=== PATIENT | female | born 1945 | race Caucasian/White ===

== ENCOUNTER 2023-01-04 14:38 | Outpatient (OUT) | payer MEDICARE, SELFPAY ==
[2023-01-04 15:10] LABS: Basophils Absolute Auto 0.1 10^3/uL (0.0-0.1); Basophils Percent Auto 0.5 % (0.2-2.0); Eosinophils Absolute Auto 0.2 10^3/uL (0.0-0.7); Eosinophils Percent Auto 1.9 % (0.9-7.0); Hematocrit 33.8 % (36.0-48.0); Hemoglobin 11.3 g/dL (12.0-16.0); Immature Granulocytes Abs Auto 0.04 10^3/uL (0.00-0.03); Immature Granulocytes Pct Auto 0.4 % (0.0-0.5); Lymphocytes Absolute Auto 2.7 10^3/uL (1.2-3.8); Lymphocytes Percent Auto 26.7 % (20.5-60.0); Mean Corpuscular HGB Conc 33.4 g/dL (29.9-35.2); Mean Corpuscular Hemoglobin 29.3 pg (26.7-34.0); Mean Corpuscular Volume 87.6 fL (81.0-99.0); Mean Platelet Volume 10.9 fL (9.5-13.5); Monocytes Absolute Auto 0.8 10^3/uL (0.3-0.8); Monocytes Percent Auto 7.4 % (1.7-12.0); Neutrophils Absolute Auto 6.4 10^3/uL (1.4-6.5); Neutrophils Percent Auto 63.1 % (43.0-75.0); Platelet Count 248 10^3/uL (150-450); Red Blood Count 3.86 10^6/uL (4.20-5.40); Red Cell Distribution Width 13.3 % (11.0-15.0); White Blood Count 10.1 10^3/uL (4.0-11.0)
--- NOTE | 2023-01-04 15:56 | CA_ITS ---
The [facility] Test Date: 2023-01-04 Pat Name: Maame Medina Department: Room: - Gender: Female Financial Reporting Manager: Rachel Silva : 1945 Requested By: SOLEDAD MCNEIL Order Number: [id number] Reading MD: SOLEDAD MCNEIL Interpretive Statements Biphasic doppler waveforms PVR waveforms with normal upstroke, amplitude and dicrotic notch Right: - significant pressure gradient between the calf and DP cuff - normal TRUMAN and TBI Left: - no pressure gradient between cuff - normal TRUMAN and TBI Impression: - elevated B/L calf indices consistent with calcified, noncompressible arterial larsen, which may underestimate the degree of arterial disease pressent - normal arterial evaluation of the lower extremities without hemodynamic impairment of the B/L lower extremity at rest. (right TRUMAN 1.16, left TRUMAN 1.27) Electronically Signed On 01-05-2023 6:53:57 EDT by SOLEDAD MCNEIL
[2023-01-04 16:09] LABS: Alanine Aminotransferase 25 U/L (14-59); Anion Gap 12.3; Calcium 10.5 mg/dL (8.5-10.1); Carbon Dioxide 29.1 mmol/L (21.0-32.0); Chloride 101 mmol/L (98-107); Chol HDL Ratio 2.2; Cholesterol 114 mg/dL (<=200); Estimated GFR (African America 36 (>=60); Estimated GFR (Non-African Ame 30 (>=60); Glucose 130 mg/dL (74-106); HDL Cholesterol 51 mg/dL (40-60); LDL Cholesterol Calculated 34.2 mg/dL; Potassium 4.4 mmol/L (3.5-5.1); Sodium 138 mmol/L (136-145); Triglycerides 144 mg/dL (<=150); VLDL CHOLESTEROL 28.8 mg/dL
[2023-01-04 16:40] LABS: Estimated Average Glucose 174 mg/dL; Glycohemoglobin A1C 7.7 % (4.5-6.2)
[2023-01-04 16:48] LABS: Microalbumin Urine Random 2.4 mg/dL (<=30.0)
[2023-01-05 14:12] LABS: PTH, Intact 38 pg/mL (15-65)
== END 2023-01-04 14:39 | disposition home or self-care (01) ==
LOC: CARD 14:38
PROVIDERS: PCP Internal Medicine; Visit Provider Internal Medicine
DX: I70.212 Atherosclerosis of native arteries of extremities with intermittent claudication, left leg (principal); E11.65 Type 2 diabetes mellitus with hyperglycemia; E78.01 Familial hypercholesterolemia; E83.52 Hypercalcemia; Z79.899 Other long term (current) drug therapy; E55.9 Vitamin D deficiency, unspecified
CPT/HCPCS: 36415; 80048; 80061; 82043; 82306; 83036; 83970; 84460; 85025; 93923

== ENCOUNTER 2023-07-25 18:28 | Emergency (ER) | payer MEDICARE, SELFPAY ==
[2023-07-25] VITALS (10 sets, daily range): BP systolic 125–168; BP diastolic 54–67; PULSE 54–63; RESP 13–30; TEMP 36.9; O2SAT 95–99; BMI 26.8
--- NOTE | 2023-07-25 18:42 | XR_ITS ---
The [address] [address] Patient Name: DINO VELASCO MRN: [id number] date: 1945 Sex: F Assigned Patient Location: ER Current Patient Location: ER Accession/Order Number: [id number] Exam Date: 07/25/2023 18:50 Report Date: 07/25/2023 19:42 At the request of: BRICE BUTLER Procedure: XR chest 1V ONE-VIEW CHEST RADIOGRAPH, 07/25/2023 6:50 PM EST COMPARISON: Chest, 08/08/2021. CLINICAL HISTORY: Chest pain. Findings and impression: 1. Left upper lobe/suprahilar mass measuring 3.2 cm is new since the prior exam. Further correlation with CT scan of the chest with IV contrast recommended. Lungs otherwise clear. 2. Mild cardiomegaly. 3. No acute osseous abnormality. Electronically authenticated by: Bruna MORIN Date: 07/25/2023 19:42
--- NOTE | 2023-07-25 18:42 | ECG_ITS ---
The [facility] Test Date: 2023-07-25 Pat Name: DINO VELASCO Department: Room: - Gender: Female [facility]: : 1945 Requested By: Ramin Mcneil Order Number: [id number] Reading MD: RAMIN MCNEIL Measurements Intervals [place] Rate: 57 P: 69 MD: 178 QRS: 58 QRSD: 76 T: 76 QT: 404 QTc: 397 Interpretive Statements 1100 Sinus rhythm 9110 normal ECG Compared to ECG 08/16/2021 22:51:05 No significant changes Electronically Signed On 07-27-2023 6:46:25 EST by RAMIN MCNEIL
--- NOTE | 2023-07-25 18:45 | ED_ITS ---
HPI - Chest Pain General Chief Complaint: Chest Pain Stated Complaint: Blood Pressure Time Seen by Provider: 07/25/23 18:42 Source: patient Mode of arrival: walk-in Limitations: no limitations History of Present Illness HPI narrative: Patient is a 77-year-old female with a history of high blood pressure, high cholesterol, diabetes. She presents to the ER for evaluation of burning in the chest throughout the day. She states earlier today she had an episode where she had discomfort across the chest that she describes as burning, she states it radiated to the bilateral arms. She has no fevers, chills, cough, congestion. She denies feeling short of breath. She states symptoms eased up but her daughter works for Dr. De Paz's office and checked in with her earlier and he recommended that if the symptoms return she go to the ER. At this time she has only minimal discomfort in the chest. She has no peripheral edema. No history of acid reflux. She takes aspirin and Plavix daily for history of TIA. Risk Factors Coronary artery disease risk factors: diabetes, hyperlipidemia and hypertension Related Data Home Medications Medication Instructions Recorded Confirmed amlodipine 5 mg tablet 5 mg PO DAILY 07/25/23 07/25/23 aspirin 81 mg tablet,delayed 81 mg PO DAILY 07/25/23 07/25/23 release (Adult Low Dose Aspirin) atorvastatin 10 mg tablet 10 mg PO DAILY 07/25/23 07/25/23 carvedilol 6.25 mg tablet 6.25 mg PO DAILY 07/25/23 07/25/23 clopidogrel 75 mg tablet 75 mg PO DAILY 07/25/23 07/25/23 famotidine 20 mg tablet 20 mg PO BID 07/25/23 07/25/23 furosemide 20 mg tablet 20 mg PO .every other day 07/25/23 07/25/23 glipizide 10 mg tablet 10 mg PO DAILY 07/25/23 07/25/23 losartan 50 mg tablet 50 mg PO BID 07/25/23 07/25/23 sitagliptin phosphate 50 1 tab PO BID 07/25/23 07/25/23 mg-metformin 1,000 mg tablet ([place]ra) Allergies Allergy/AdvReac Type Severity Reaction Status Date / Time Penicillins Allergy Severe Verified 07/25/23 18:42 Review of Systems ROS Constitutional Denies: fever or chills Ears, nose, mouth, and throat Denies: throat pain or nasal congestion Cardiovascular Reports: chest pain Respiratory Denies: shortness of breath or cough Gastrointestinal Denies: abdominal pain, nausea, vomiting or diarrhea Genitourinary Denies: painful urination Musculoskeletal Denies: back pain Integumentary/Breast Denies: rash Neurological Denies: headache Hematologic/Lymphatic Denies: easy bruising or easy bleeding [facility] Social History Smoking status: Former smoker Exam Narrative Exam Narrative: Gen.: Awake, alert, in no distress Head: Normocephalic, atraumatic ENT: Moist mucous membranes Respiratory: No respiratory distress, lungs clear bilaterally Cardio: Regular rate and rhythm Gastrointestinal: Abdomen is soft, nondistended and nontender to palpation Extremities: Moves extremities equally, no pedal edema Psych: Normal mood and affect Neuro: No focal neuro deficit Skin: Warm, dry, intact Constitutional Vital Signs, click to edit/add: Last Vital Signs Temp 98.5 F 07/25/23 18:35 Pulse 54 L 07/25/23 19:50 Resp 15 07/25/23 19:50 BP 127/56 07/25/23 19:30 Pulse Ox 97 07/25/23 19:50 Course Vital Signs Vital signs: Vital Signs Temperature 98.5 F 07/25/23 18:35 Pulse Rate 56 L 07/25/23 18:35 Respiratory Rate 20 07/25/23 18:35 Blood Pressure 168/54 H 07/25/23 18:35 Pulse Oximetry 99 07/25/23 18:35 Temperature 98.5 F 07/25/23 18:35 Pulse Rate 54 L 07/25/23 19:50 Respiratory Rate 15 07/25/23 19:50 Blood Pressure 127/56 07/25/23 19:30 Pulse Oximetry 97 07/25/23 19:50 MDM - Chest Pain MDM Narrative Medical decision making narrative: Patient with no significant discomfort in the ER, she maintained stable vital signs and normal EKG. She had a full cardiac workup with 2 normal troponins in the ER. Her chest x-ray showed a mass in the left upper lobe recommended CT with IV contrast by radiologist. CT shows a 3 cm mass in the left upper lobe concern for primary tumor. I discussed this with Dr. Centeno who will see the patient next week and coordinate Care with Dr. De Paz. She was encouraged to call Dr. De Paz's office for further instructions. Dr. Richardson Can see the patient next week for bronchoscopy, he recommended Plavix be held 5 to 7 days for the procedure. Patient was made aware of these findings. She was reevaluated by attending physician prior to discharge, she is eager for discharge home. Follow-up with PCP and return to the ER if symptoms change or worsen Medical Records Data Attestation: I reviewed the patient's medical records. Lab Data Attestation: I reviewed the patient's lab results. Labs: Lab Results 07/25/23 07/25/23 Range/Units 18:55 20:55 WBC 10.6 (4.0-11.0) 10^3/uL RBC 4.07 L (4.20-5.40) 10^6/uL Hgb 11.8 L (12.0-16.0) g/dL Hct 36.6 (36.0-48.0) % MCV 89.9 (81.0-99.0) fL MCH 29.0 (26.7-34.0) pg MCHC 32.2 (29.9-35.2) g/dL RDW 12.9 (11.0-15.0) % Plt Count 230 (150-450) 10^3/uL MPV 11.4 (9.5-13.5) fL Neut % (Auto) 61.3 (43.0-75.0) % Lymph % (Auto) 26.4 (20.5-60.0) % [place] % (Auto) 9.3 (1.7-12.0) % Eos % (Auto) 2.0 (0.9-7.0) % Baso % (Auto) 0.5 (0.2-2.0) % Neut # (Auto) 6.5 (1.4-6.5) 10^3/uL Lymph # (Auto) 2.8 (1.2-3.8) 10^3/uL [place] # (Auto) 1.0 H (0.3-0.8) 10^3/uL Eos # (Auto) 0.2 (0.0-0.7) 10^3/uL Baso # (Auto) 0.1 (0.0-0.1) 10^3/uL Abs Immat Gran (auto) 0.05 H (0.00-0.03) 10^3/uL Imm/Tot Granulo (auto) 0.5 (0.0-0.5) % PT 10.5 (9.0-11.6) sec INR 0.99 Sodium 137 (136-145) mmol/L Potassium 5.1 (3.5-5.1) mmol/L Chloride 101 (98-107) mmol/L Carbon Dioxide 25.5 (21.0-32.0) mmol/L Anion Gap 15.6 BUN 28.0 H (7.0-18.0) mg/dL Creatinine 1.27 H (0.55-1.02) mg/dL Est GFR ( Amer) 49 L (>=60) Est GFR (Non-Af Amer) 41 L (>=60) BUN/Creatinine Ratio 22.0 Glucose 139 H (74-106) mg/dL Calcium 10.8 H (8.5-10.1) mg/dL Total Bilirubin 0.4 (0.2-1.0) mg/dL AST 17 (15-37) U/L ALT 27 (14-59) U/L Alkaline Phosphatase 130 H (46-116) U/L Troponin I High Sens 7.6 10.2 (4.0-51.3) pg/mL NT-Pro-B Natriuret Pep 180.0 (<=1800.0) pg/mL Total Protein 7.6 (6.4-8.2) g/dL Albumin 3.8 (3.4-5.0) g/dL Globulin 3.8 g/dL Albumin/Globulin Ratio 1.[address] scan - chest: Radiologist's impression: ITS Impressions Chest CT 07/25/23 20:13 IMPRESSION: 1. Development of new large enhancing left lung mass, located within the os tear aspect of the upper superior segment left lower lobe abutting the major fissure measuring 2.6 cm AP by 2.67 m transverse by 2.9 cm craniocaudal. Query primary malignant lung cancer versus metastasis. Suspect primary tumor. This is new and has developed when compared with remote studies. Recommend tissue diagnosis and PET/CT. 2. Additional indeterminate left adrenal nodule as measured above. Given new lung mass, metastasis needs to be excluded. Correlate with PET/CT versus a dedicated MRI or CT adrenal workup. 3. Subtle hyperdense lesions within the hepatic dome. These may be further characterized with PET/CT and/or dynamic liver MRI; likewise there are some subcentimeter hypodensities in the spleen most likely benign but can be further characterized with these other imaging modalities. 4. Incidental calcified right lower lobe lung granuloma also in the superior segment. Electronically authenticated by: RADHA FERRIS Date: 07/25/2023 21:08 ECG Data Attestation: I personally reviewed and interpreted this ECG as follows: (Normal sinus rhythm at a rate of 57, no acute ST elevation or ectopy. EKG reviewed by attending physician) Heart Score History: Slightly/Non-Suspicious ECG: Normal Age: >65 years Risk Factors: >3 Risk Factors/ HX of CAD:2 Troponin: <Normal Limit Total Heart Score Recommendations & Risks:: 4 Discharge Plan Discharge Chief Complaint: Chest Pain Clinical Impression: Mass of left lung Patient Disposition: Home, Self-Care Time of Disposition Decision: 21:25 Condition: Good Prescriptions / Home Meds: No Action amlodipine 5 mg tablet 5 mg PO DAILY atorvastatin 10 mg tablet 10 mg PO DAILY carvedilol 6.25 mg tablet 6.25 mg PO DAILY clopidogrel 75 mg tablet 75 mg PO DAILY famotidine 20 mg tablet 20 mg PO BID furosemide 20 mg tablet 20 mg PO .every other day glipizide 10 mg tablet 10 mg PO DAILY losartan 50 mg tablet 50 mg PO BID Janumet 50-1,000 mg tablet 1 tab PO BID aspirin [Adult Low Dose Aspirin] 81 mg tablet,delayed release (DR/EC) 81 mg PO DAILY Instructions: Chest Pain (ED) Additional Instructions: Please follow up with Dr. De Paz in the next 1-2 days for reevaluation; Dr Richardson will see you in the office next week to discuss a biopsy, your Plavix needs to be held 5-7 days for him to do that procedure. Dr. Centeno is a high school coordinator/oncologist who can help with your diagnosis Stand Alone Forms: Portal Instructions Referrals: Juana Centeno MD [Physician] - 1 week Ramin De Paz DO [Primary Care Provider] - 1 week Ti Richardson DO [Physician] - 1 week
[2023-07-25 19:23] LABS: Basophils Absolute Auto 0.1 10^3/uL (0.0-0.1); Basophils Percent Auto 0.5 % (0.2-2.0); Eosinophils Absolute Auto 0.2 10^3/uL (0.0-0.7); Hematocrit 36.6 % (36.0-48.0); Hemoglobin 11.8 g/dL (12.0-16.0); Immature Granulocytes Abs Auto 0.05 10^3/uL (0.00-0.03); Immature Granulocytes Pct Auto 0.5 % (0.0-0.5); Lymphocytes Absolute Auto 2.8 10^3/uL (1.2-3.8); Lymphocytes Percent Auto 26.4 % (20.5-60.0); Mean Corpuscular HGB Conc 32.2 g/dL (29.9-35.2); Mean Corpuscular Volume 89.9 fL (81.0-99.0); Mean Platelet Volume 11.4 fL (9.5-13.5); Monocytes Percent Auto 9.3 % (1.7-12.0); Neutrophils Absolute Auto 6.5 10^3/uL (1.4-6.5); Neutrophils Percent Auto 61.3 % (43.0-75.0); Platelet Count 230 10^3/uL (150-450); Red Blood Count 4.07 10^6/uL (4.20-5.40); Red Cell Distribution Width 12.9 % (11.0-15.0); White Blood Count 10.6 10^3/uL (4.0-11.0)
[2023-07-25 19:42] LABS: INR 0.99; Prothrombin Time 10.5 sec (9.0-11.6)
[2023-07-25 19:53] LABS: Alanine Aminotransferase 27 U/L (14-59); Albumin Level 3.8 g/dL (3.4-5.0); Alkaline Phosphatase 130 U/L (46-116); Anion Gap 15.6; Aspartate Amino Transferase 17 U/L (15-37); Bilirubin Total 0.4 mg/dL (0.2-1.0); Calcium 10.8 mg/dL (8.5-10.1); Carbon Dioxide 25.5 mmol/L (21.0-32.0); Chloride 101 mmol/L (98-107); Estimated GFR (African America 49 (>=60); Estimated GFR (Non-African Ame 41 (>=60); Globulin 3.8 g/dL; Glucose 139 mg/dL (74-106); Potassium 5.1 mmol/L (3.5-5.1); Sodium 137 mmol/L (136-145); Total Protein 7.6 g/dL (6.4-8.2); Troponin I High Sensitivity 7.6 pg/mL (4.0-51.3)
--- NOTE | 2023-07-25 20:13 | CT_ITS ---
The [address] [address] Patient Name: DINO VELASCO MRN: [id number] date: 1945 Sex: F Assigned Patient Location: ER Current Patient Location: Accession/Order Number: [id number] Exam Date: 07/25/2023 20:27 Report Date: 07/25/2023 21:08 At the request of: BRICE BUTLER Procedure: CT chest w con CT OF THE CHEST WITH CONTRAST: 07/25/2023 8:27 PM EST HISTORY: Abnormal chest x-ray. Same-day chest x-ray demonstrated left upper lobe mass. TECHNIQUE: Contiguous axially collimated images were obtained from the lung apices through the lung bases, covering the adrenal glands, following the uneventful intravenous administration of 100 cc of Optiray 300. This CT exam was performed using one or more of the following dose reduction techniques: Automated exposure control, adjustment of the mA and/or kV according to patient size, or use of iterative reconstruction technique. Thin section coronal and sagittal images were reconstructed from the axial data set. All images were reviewed and interpreted. COMPARISON: Chest x-ray 07/25/2023; chest x-ray 08/16/2021; CT chest with contrast 08/24/2018 FINDINGS: Mediastinum: The mediastinum is unremarkable, without mass, hematoma, or lymph telma enlargement. Vascular Structures: The vascular structures are intact and unremarkable. There is mild atherosclerotic calcification of the normal caliber aorta. No dissection. Normal enhancement of the pulmonary arteries. No evidence of PE. Heart and Pericardium: The heart is normal in size and configuration. The pericardium is unremarkable, without mass or pericardial effusion. Pulmonary Parenchyma: There is a new large round low density parenchymal mass within the left upper lobe. This was not seen on previous remote imaging. There is a vessel seen extending to the lesion with some internal vascularity. Mean attenuation values of 42 Hounsfield units this measures approximately 2.6 cm AP and approximately 2.6 cm transverse. Craniocaudal mass extends 2.9 cm. This is located within the posterior superior margin of the superior segment left lower lobe and a portion abuts the undersurface of the major fissure. Also demonstrated is a benign uniformly calcified granuloma within the superior segment of the left lower lobe also measuring 5 mm x 5 mm. Remainder of the bilateral lung blake are clear. No additional mass or nodule. No acute consolidation. Pleura: Pleura is unremarkable, without mass or effusion. Osseous Structures: The osseous structures are grossly intact, without evidence of destructive osseous process. No blastic lesion or fracture. Body Wall: There is no body wall mass. There is no axillary lymph telma enlargement. Upper abdomen: There is uniform rather prominent hepatic steatosis. There are several subtle areas of clustered hyperdensities within the hepatic dome. A these are vessels or small enhancing lesions. Correlation with dynamic liver MRI recommended to further characterize given new left upper lobe lung mass. There are a few scattered calcified hepatic and splenic granulomas. There are also some multiple hypodense splenic lesions likely cysts. As can be assessed with MRI as well as they are too small to characterize on current study. Right adrenal gland is unremarkable. Low density left adrenal nodule measures 1.4 cm x 1.1 cm, too small to characterize. Attenuation values on this study of 67 Hounsfield units. Uncertain if this is metastatic, primary malignant or benign adenoma on this exam. Recommend correlation with MRI and/or dedicated adrenal CT imaging with and without with delayed washout versus PET/CT. Follow-up required. CT/CT chest w con IMPRESSION: 1. Development of new large enhancing left lung mass, located within the os tear aspect of the upper superior segment left lower lobe abutting the major fissure measuring 2.6 cm AP by 2.67 m transverse by 2.9 cm craniocaudal. Query primary malignant lung cancer versus metastasis. Suspect primary tumor. This is new and has developed when compared with remote studies. Recommend tissue diagnosis and PET/CT. 2. Additional indeterminate left adrenal nodule as measured above. Given new lung mass, metastasis needs to be excluded. Correlate with PET/CT versus a dedicated MRI or CT adrenal workup. 3. Subtle hyperdense lesions within the hepatic dome. These may be further characterized with PET/CT and/or dynamic liver MRI; likewise there are some subcentimeter hypodensities in the spleen most likely benign but can be further characterized with these other imaging modalities. 4. Incidental calcified right lower lobe lung granuloma also in the superior segment. Electronically authenticated by: RADHA FERRIS Date: 07/25/2023 21:08
[2023-07-25 21:17] LABS: Troponin I High Sensitivity 10.2 pg/mL (4.0-51.3)
== END 2023-07-25 22:04 | disposition home or self-care (01) ==
PROVIDERS: Physician Assistant; Emergency Provider Emergency Medicine; PCP Internal Medicine
DX: R91.8 Other nonspecific abnormal finding of lung field (principal); I10 Essential (primary) hypertension; E78.00 Pure hypercholesterolemia, unspecified; E11.9 Type 2 diabetes mellitus without complications; Z79.82 Long term (current) use of aspirin; Z79.02 Long term (current) use of antithrombotics/antiplatelets; Z79.899 Other long term (current) drug therapy; Z86.73 Personal history of transient ischemic attack (TIA), and cerebral infarction without residual deficits; Z87.891 Personal history of nicotine dependence
CPT/HCPCS: 36415; 71045; 71260; 80053; 83880; 84484; 85025; 85610; 93005; 99285; Q9967

== ENCOUNTER 2023-08-01 08:29 | Outpatient (OUT) | payer MEDICARE, SELFPAY ==
[2023-08-01 10:20] LABS: Erythrocyte Sedimentation Rate 34 mm/hr (<=30)
[2023-08-02 06:08] LABS: Rheumatoid Factor (RF) <10.0 IU/mL (<14.0)
[2023-08-02 13:12] LABS: ANA Direct Positive (Negative); Angiotensin-Converting Enzyme 59 U/L (14-82); Anti-CCP Ab, IgG/IgA 5 units (0-19); Anti-DNA (DS) Ab Qn 10 IU/mL (0-9); RNP Antibodies <0.2 AI (0.0-0.9); Sjogren's Anti-SS-A <0.2 AI (0.0-0.9); Sjogren's Anti-SS-B <0.2 AI (0.0-0.9)
[2023-08-05 15:08] LABS: Aspergillus flavus Negative (Neg:<1:1); Aspergillus fumigatus Negative (Neg:<1:1); Aspergillus niger Negative (Neg:<1:1); Blastomyces Abs, Qn, DID Negative (Neg:<1:1)
[2023-08-05 16:08] LABS: Histoplasma Gal'mannan Ag Ur Negative (<0.5 ng/mL)
== END 2023-08-01 08:30 | disposition home or self-care (01) ==
LOC: LAB 08:31
PROVIDERS: PCP Internal Medicine; Visit Provider Internal Medicine
DX: R91.8 Other nonspecific abnormal finding of lung field (principal)
CPT/HCPCS: 36415; 82164; 85652; 86038; 86200; 86225; 86235; 86431; 86606; 86612; 86698; 87385

== ENCOUNTER 2023-08-02 13:25 | Outpatient (OUT) | payer MEDICARE, SELFPAY ==
--- OUTSIDE RECORDS SUMMARY | 2023-08-02 13:44 | XMS_ITS | CCD ---
Author Name Unknown Address [address] [place] [address] Organization [facility] Care Team Providers Care Plasma Table Operator Name Role Phone GALLEGO, JOSH Admitting Unavailable JOSH GALLEGO Attending Unavailable NEFTALI DON Referring Unavailable RAMIN DE PAZ Primary Care Unavailable Ramin De Paz DO Primary Care Provider Estuardo Epps Unavailable DO Ramin De Paz Primary Care Provider MD Bela Allison Referring Provider [phone] MARY ALICE Gaming Attending Provider DR RAMIN DE PAZ Primary Care Unavailable MISC, DR RIVERA Consulting Unavailable MISC, DR RIVERA Attending Unavailable MISC, DR RIVERA Admitting Unavailable YUE, JOSE Pino Consulting Unavailable BALL, DR FAUSTIN Primary Care Unavailable ALLISON, DR BELA Bowman Consulting Unavailable ALLISON, DR BELA Bowman Attending Unavailable ALLISON, DR BELA Bowman Admitting Unavailable BALL, DR FAUSTIN Primary Care Unavailable BALIS, MORGAN Consulting Unavailable BALIS, MORGAN Attending Unavailable BALIS, MORGAN Admitting Unavailable BALL, DR FAUSTIN Admitting Unavailable BALL, DR FAUSTIN Attending Unavailable BALL, DR FAUSTIN Consulting Unavailable BALL, DR FAUSTIN Primary Care Unavailable BALL, DR FAUSTIN Primary Care Unavailable BALL, DR FAUSTIN Consulting Unavailable BALDEV, DR FAUSTIN Admitting Unavailable BALL, DR FAUSTIN Attending Unavailable BALL, DR FAUSTIN Primary Care Unavailable BALL, DR FAUSTIN Consulting Unavailable BALDEV, DR FAUSTIN Admitting Unavailable BALL, DR FAUSTIN Attending Unavailable BALL, DR FAUSTIN Primary Care Unavailable BALL, DR FAUSTIN Consulting Unavailable BALL, DR FAUSTIN Admitting Unavailable BALL, DR FAUSTIN Attending Unavailable WEST, DR ESTUARDO Subramanian Consulting Unavailable BALL, DR FAUSTIN Primary Care Unavailable BALL, DR FAUSTIN Consulting Unavailable BALL, DR FAUSTIN Attending Unavailable BALL, DR FAUSTIN Referring Unavailable BALL, DR FAUSTIN Admitting Unavailable BALL, DR FAUSTIN Primary Care Unavailable BALL, DR FAUSTIN Consulting Unavailable BALL, DR FAUSTIN Attending Unavailable BALL, DR FAUSTIN Admitting Unavailable BALDEV, DR FAUSTIN Primary Care Unavailable ARIAN, DR NEFTALI Payne Consulting Unavailable ARIAN, DR NEFTALI Payne Attending Unavailable ARIAN, DR NEFTALI Payne Admitting Unavailable AHGO, SENDY Consulting Unavailable BALDVE, DR FAUSTIN Primary Care Unavailable CRISTIAN, DR BELA Bowman Attending Unavailable LANA, DR JAIR Bowman Consulting Unavailagusto e CRISTIAN, DR BELA Bowman Admitting Unavailable CRISTIAN, DR BELA Bowman Consulting Unavailable KING, DR ESTUARDO Subramanian Consulting Unavailable SYLVIA, DR ROSE Consulting Unavailable DENIS, GEO Consulting Unavailable Baldev, DO Faustin Primary Care Provider [phone] Adamlorriicz II, DO Jose Pino Attending Provider [phone] MD Bela Allison Referring Provider [phone] DO Ramin De Paz Attending Provider DO Ramin De Paz Primary Care Provider Danyellicz II, DO Jose Pino Attending Provider [phone] MD Bela Allison Referring Provider [phone] Ramin De Paz Unavailable DO Ramin De Paz Primary Care Provider [phone] Danyellicz II, DO Jose Pino Attending Provider MD Bela Allison Referring Provider [phone] DO Ramin De Paz Primary Care Provider Adamlorriicz II, DO Jose Pino Attending Provider MD Bela Allison Referring Provider DO Ramin De Paz Attending Provider [phone] Ramin De Paz Attending Unavailable Ramin De Paz Admitting Unavailable Ramin De Paz Primary Care Unavailable Bela Allison Referring Unavailable Adamlorriicz II, Jose Pino Admitting Unavaila ble Danyellicz II, Jose Pino Attending Unavaila ble Ramin De Paz Primary Care Unavailable Allergies Allergy Classification Reported Allergen(s) Allergy Type Date of Onset Reaction(s) Facility (12 sources) Penicillin Drug Allergy 09-21-19 14 Unknown [facility] Repository (1 source) Penicillins Drug Allergy 05-04-20 21 Unknown [facility] (20 sources) Sulfamethoxazole / Trimethoprim Drug Allergy 05-04-20 21 Unknown [facility] (20 sources) Penicillin G Benzathine Drug allergy Unknown [employer] [facility] Other (10 sources) dulaglutide Drug Allergy TRULICITY Comment:Freete xt Needs Updated. [facility] Other (10 sources) Penicillin V Drug Allergy Unknown [facility] Other (2 sources) patient allergy list reviewed by nurse or physicia Propensity to adverse reactions 06-15-20 Comment:Done [employer] [facility] Other (1 source) Penicillins Drug allergy (disorder) 06-28-19 [facility] Repository Medications Current Medications Medication Drug Class(es) Dates Sig (Normalized) Sig (Original) amLODIPine 5 mg oral tablet (20 sources) Dihydropyridine Calcium Channel Jefe Start: 06-08-2021 take 5 mg by mouth once daily Amlodipine Active 5 MG PO Daily June 08, 2021 12:00am amLODIPine Benzoate (1 source) amLODIPine Benzoate Active Aspir-81 (19 sources) Aspir-81 Active aspirin 81 mg delayed release oral tablet (6 sources) Platelet Aggregation Inhibitor, Nonsteroidal Anti-inflammatory Drug Start: 06-08-2021 take 81 mg by mouth once daily Aspirin Active 81 MG PO Daily June 08, 2021 12:00am take 1 tablet by mouth once breanna y aspirin,buffd-calcium carb-mag (ASPIRIN, BUFFERED) 325 mg buffered tablet Take 1 tablet by mouth once daily. 0 Active Comment on above: Take 1 tablet by dick th once daily. atorvastatin 10 mg oral tablet (20 sources) HMG-CoA Reductase Inhibitor Start: take 10 mg by mouth once daily Atorvastatin Active 10 MG PO Daily June 08, 2021 12:00am Atorvastatin Arnulfo cium Active biotin 10 mg oral tablet (8 sources) take 1 tablet by mouth every twenty-four hours Biotin 10 MG 1 tablet Orally Once a day Active carvedilol 6.25 mg oral tablet (20 sources) alpha-Adrenergi c Jefe, beta-Adrenergic Jefe Start: 022 take 6.25 mg by mouth twice daily Carvedilol Active 6.25 MG PO Twice daily August 09, 2021 12:00am cholecalciferol 0.05 mg oral capsule (20 sources) Vitamin D Start: 023 take 2000 [IU] by mouth once daily Cholecalciferol (Vitamin D3) Active 2000 UNIT PO Daily July 14, 2022 12:00am Dialyvite Vitami n D3 Max 1.25 MG (28165 UT) 1 tablet Orally Active Dialyvite Vitami n D3 Max 1.25 MG (72068 UT) 1 tablet Orally Active cloNIDine hydrochloride 0.1 mg oral tablet (19 sources) Central alpha-2 Adrenergic Agonist take 1 tablet by mouth twice daily cloNIDine HCl 0.1 mg TAKE 1 TABLET BY MOUTH TWICE DAILY Active take 1 tablet by dick th every twenty-four hours cloNIDine HCl 0.1 MG 1 tablet Orally Once a day Active clopidogrel 75 mg oral tablet (20 sources) P2Y12 Platelet Inhibitor Start: 06-08-2021 take 75 mg by mouth once daily Clopidogrel Active 75 MG PO Daily June 08, 2021 12:00am clopidogrel bisu lfate (CLOPIDOGREL ORAL) Take by mouth once daily. 0 Active Comment on above: Take by mouth once d aily. famotidine 10 mg oral tablet (20 sources) Histamine-2 Receptor Antagonist Start: 06-08-2021 take 10 mg by mouth once daily Famotidine Active 10 MG PO Daily June 08, 2021 12:00am take 1 tablet by mouth twice narciso ly Famotidine 20 mg TAKE 1 TABLET BY MOUTH TWICE DAILY Active furosemide 20 mg oral tablet (20 sources) Loop Diuretic Start: 08-09-2021 take 20 mg by mouth every other day Furosemide Active 20 MG PO As Directed August 09, 2021 12:00am every other day Start: 08-09-2021 take 20 mg by mouth once daily Furosemide Active 20 MG PO Daily August 09, 2021 12:00am gabapentin 100 mg oral capsule (20 sources) Anti-epileptic Agent Start: 06-08-2021 take 100 mg by mouth twice daily Gabapentin Active 100 MG PO Twice daily June 08, 2021 12:00am Gabapentin Activ e glipiZIDE 10 mg oral tablet (20 sources) Sulfonylurea Start: 06-08-2021 take 10 mg by mouth twice daily Glipizide Active 10 MG PO Twice daily June 08, 2021 12:00am take 1 tablet by dick th once daily 30 minutes before breakfast glipiZIDE 10 MG 1 tablet 30 minutes before breakfast Orally Once a day Active glipiZIDE Active losartan potassium 100 mg oral tablet (20 sources) Angiotensin 2 Receptor Jefe Start: 06-08-2021 take 100 mg by mouth once daily Losartan Active 100 MG PO Daily June 08, 2021 12:00am take 1 tablet by mouth twice narciso ly Losartan Potassium 50 mg TAKE 1 TABLET BY MOUTH TWICE DAILY Active Losartan Potassi um Active metFORMIN hydrochloride 1000 mg / SITagliptin 50 mg oral tablet (20 sources) Biguanide, Dipeptidyl Peptidase 4 Inhibitor Start: 06-08-2021 take 1 tablet by mouth twice daily Sitagliptin Phos-Metformin ([place]) 50-1,000 mg tablet Active 1 TAB PO Twice daily June 08, 2021 12:00am Start: 06-08-2021 take 1 tablet by dick th once daily Sitagliptin Phos-Metformin ([place]) 50-1,000 mg tablet Active 1 TAB PO Daily June 08, 2021 12:00am Janumet Active Completed/Discontinued Medications Medication Drug Class(es) Dates Sig (Normalized) Sig (Original) B-12 - up to 1000 mcg (20 sources) Start: 06-14-2023 B-12 - up to 1000 mcg May, 1 mL Start: 05-05-2023 B-12 - up to 1 000 mcg Apr, 1 mL Start: 03-27-2023 B-12 - up to 1 000 mcg Mar, 1000 mcg Start: 02-10-2023 B-12 - up to 1 000 mcg Jan, 1000 mcg Start: 01-09-2023 B-12 - up to 1 000 mcg Dec, 1000 mcg Start: 11-23-2022 B-12 - up to 1 000 mcg Nov, 1000 mcg Start: 10-18-2022 B-12 - up to 1 000 mcg October, 1000 mcg Start: 08-12-2022 B-12 - up to 1 000 mcg Jul, 1000 mcg Start: 07-08-2022 B-12 - up to 1 000 mcg Jun, 1000 mcg polysaccharide iron complex 150 mg oral capsule (6 sources) Start: 06-08-2021 End: 07-14-2022 Polysaccharide Iron Complex (Iferex 150) 150 mg iron capsule Discontinued 150 MG PO As Directed June 08, 2021 12:00am July 14, 2022 9:56am Every other day iFerex 150 Activ e Problems Active Problems Problem Classification Problem Date Documented Date Episodic/Chronic Cardiac and circulatory congenital anomalies (20 sources) Arteriovenous malformation, site unspecified; Translations: [Patent foramen ovale] Chronic Chronic kidney disease (20 sources) Chronic kidney disease stage 4; Translations: [Chronic kidney disease, stage 4 (severe)] Chronic Deficiency and other anemia (4 sources) Iron deficiency anemia secondary to blood loss (chronic); Translations: [IRON DEFIC ANEMIA SEC BLD LOSS CHRN] Onset: 07-09-2021 Chronic Deficiency and other anemia (9 sources) Anemia due to chronic blood loss; Translations: [Iron deficiency anemia secondary to blood loss (chronic)] Chronic Deficiency and other anemia (1 source) Iron deficiency anemia secondary to blood loss (chronic); Translations: [Iron deficiency anemia secondary to blood loss (chronic)] Onset: 07-13-2023 Chronic Deficiency and other anemia (20 sources) Iron deficiency anemia; Translations: [Iron deficiency anemia, unspecified] Onset: 08-14-2018 Resolved: 06-21-2021 06-28-2021 Episodic Deficiency and other anemia (10 sources) Iron deficiency anemia, unspecified; Translations: [Iron deficiency anemia, unspecified] Onset: 06-17-2021 Resolved: 06-24-2021 Episodic Deficiency and other anemia (20 sources) Pernicious anemia; Translations: [Vitamin B12 deficiency anemia due to intrinsic factor deficiency] Episodic Deficiency and other anemia (9 sources) Vitamin B12 deficiency anemia due to intrinsic factor deficiency Episodic Deficiency and other anemia (4 sources) Anemia; Translations: [Anemia, unspecified] Onset: 08-16-2018 01-13-2023 Episodic Diabetes mellitus with complications (20 sources) Type 2 diabetes mellitus with hyperglycemia; Translations: [Type 2 diabetes mellitus with diabetic polyneuropathy] Onset: 09-19-2016 Chronic Diabetes mellitus without complication (3 sources) Type 2 diabetes mellitus without complications; Translations: [Type 2 diabetes mellitus without complication] Onset: 08-18-2021 Chronic Disorders of lipid metabolism (20 sources) Hyperlipidemia, unspecified; Translations: [Pure hypercholesterolemia] Onset: 05-24-2013 Chronic Esophageal disorders (9 sources) Gastro-esophageal reflux disease without esophagitis; Translations: [Gastro-esophageal reflux disease with esophagitis] Onset: 09-19-2016 Chronic Essential hypertension (20 sources) Essential (primary) hypertension; Translations: [Essential hypertension] Onset: [birth year]19-1959 Chronic Gastritis and duodenitis (9 sources) Chronic gastritis; Translations: [Unspecified chronic gastritis without bleeding] Onset: 06-08-2021 Chronic Gastritis and duodenitis (20 sources) Gastritis; Translations: [Gastritis, unspecified, without bleeding] Episodic Genitourinary symptoms and ill-defined conditions (9 sources) Pyuria; Translations: [Pyuria] Episodic Immunizations and screening for infectious disease (2 sources) Vaccination given; Translations: [Encounter for immunization] Episodic Late effects of cerebrovascular disease (2 sources) 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; Translations: [Hemiplegia and hemiparesis following cerebral infarction affecting right dominant side] Onset: 05-18-2017 Chronic Menopausal disorders (2 sources) Primary ovarian failure; Translations: [Other primary ovarian failure] Onset: 06-08-2015 Chronic Nutritional deficiencies (20 sources) Vitamin D deficiency, unspecified; Translations: [Vitamin D deficiency] Onset: 06-04-2022 Chronic Nutritional deficiencies (2 sources) Iron deficiency; Translations: [Iron deficiency] 01-13-2023 Episodic Osteoporosis (1 source) Age-related osteoporosis without current pathological fracture; Translations: [AGE-REL OSTEOPOR W/O CURR PATH FX] Onset: 03-17-2022 Chronic Other aftercare (2 sources) Other custodial (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; Translations: [OTH RETAIL MANAGER CURRENT DRUG THERAPY] Onset: 08-18-2021 Episodic Other and ill-defined cerebrovascular disease (20 sources) Cerebrovascular disease; Translations: [Cerebrovascular disease, unspecified] Chronic Other and ill-defined cerebrovascular disease (19 sources) Cerebral atherosclerosis; Translations: [Cerebral atherosclerosis] Chronic Other and ill-defined cerebrovascular disease (4 sources) Cerebral atherosclerosis Chronic Other diseases of veins and lymphatics (19 sources) Peripheral venous insufficiency; Translations: [Venous insufficiency (chronic) (peripheral)] Episodic Other diseases of veins and lymphatics (2 sources) Venous insufficiency (chronic) (peripheral) Episodic Other disorders of stomach and duodenum (2 sources) Angiodysplasia of stomach and duodenum without bleeding Onset: 06-24-2021 Resolved: 06-24-2021 Episodic Other disorders of stomach and duodenum (20 sources) Angiodysplasia of duodenum; Translations: [Angiodysplasia of stomach and duodenum without bleeding] Onset: 06-08-2021 Episodic Other injuries and conditions due to external causes (2 sources) History of fall; Translations: [History of falling] Episodic Other lower respiratory disease (19 sources) Nodule of lung; Translations: [Solitary pulmonary nodule] Episodic Other nervous system disorders (1 source) Aphasia; Translations: [APHASIA] Onset: 09-19-2016 Chronic Other nutritional; endocrine; and metabolic disorders (8 sources) Hypercalcemia; Translations: [Hypercalcemia] Onset: 05-31-2022 Chronic Other nutritional; endocrine; and metabolic disorders (20 sources) Hypercalcemia; Translations: [Hypercalcemia] 07-19-2022 Chronic Other nutritional; endocrine; and metabolic disorders (2 sources) Obesity; Translations: [Obesity, unspecified] Chronic Other nutritional; endocrine; and metabolic disorders (7 sources) Overweight; Translations: [Overweight] Episodic Paralysis (19 sources) Hemiplegia, unspecified affecting right dominant side; Translations: [Hemiparesis of right dominant side, unspecified hemiparesis etiology] Chronic Peripheral and visceral atherosclerosis (17 sources) Atherosclerosis of [place] arteries of extremities with intermittent claudication, left leg; Translations: [Atherosclerosis of [place] artery of left lower extremity with intermittent claudication] Chronic Residual codes; unclassified (20 sources) Asymptomatic menopausal state; Translations: [Menopause] Onset: 03-17-2022 Episodic Residual codes; unclassified (2 sources) Postmenopausal state; Translations: [Asymptomatic menopausal state] Episodic Spondylosis; intervertebral disc disorders; other back problems (20 sources) Lumbar spondylosis; Translations: [Spondylosis without myelopathy or radiculopathy, lumbar region] Onset: 12-01-2016 Chronic Spondylosis; intervertebral disc disorders; other back problems (2 sources) Low back pain; Translations: [Low back pain, unspecified] Episodic Substance-related disorders (19 sources) Tobacco user; Translations: [Nicotine dependence, cigarettes, in remission] Chronic Thyroid disorders (20 sources) Thyroid nodule; Translations: [Nontoxic single thyroid nodule] Chronic Transient cerebral ischemia (5 sources) Transient cerebral ischemic attack, unspecified; Translations: [Transient cerebral ischemia] Onset: 09-19-2016 Chronic Unclassified (3 sources) CONTACT W/AND (SUSP) EXPOS COVID-19; Translations: [CONTACT W/AND (SUSP) EXPOS COVID-19] Onset: 06-23-2021 Unclassified (2 sources) Long-term current use of drug therapy; Translations: [Long-term (current) use of other medications] Onset: 02-04-2019 Viral infection (11 sources) Postherpetic neuralgia; Translations: [Other postherpetic nervous system involvement] Onset: 06-26-2017 Episodic Viral infection (1 source) COVID-19; Translations: [COVID-19] Onset: 01-11-2022 Past or Other Problems Problem Classification Problem Date Documented Da te Episodic/Chronic Acute posthemorrhagic anemia (1 source) Acute posthemorrhagic anemia; Translations: [ACUTE POSTHEMORRHAGIC ANEMIA] Onset: 06-23-2021 Episodic Cardiac dysrhythmias (2 sources) Paroxysmal atrial fibrillation; Translations: [Paroxysmal atrial fibrillation] Resolved: 03-26-2020 Chronic Complications of surgical procedures or medical care (3 sources) Postprocedural hypothyroidism; Translations: [Postoperative hypothyroidism] Onset: 06-23-2021 Resolved: 07-26-2021 Chronic Esophageal disorders (17 sources) Esophageal disorders; Translations: [Gastroesophageal reflux disease with esophagitis without hemorrhage] Gastrointestinal hemorrhage (4 sources) Melena; Translations: [Gastrointestinal hemorrhage, unspecified] Onset: 06-12-2021 Episodic Malaise and fatigue (2 sources) Malaise and fatigue; Translations: [Other malaise and fatigue] Onset: 07-25-2016 Episodic Mycoses (2 sources) Onychomycosis due to dermatophyte ; Translations: [Dermatophytosis of nail] Onset: 10-20-2015 Episodic Nonspecific chest pain (2 sources) Chest pain; Translations: [Other chest pain] Resolved: 06-21-2021 Episodic Other aftercare (1 source) alf (current) use of aspirin; Translations: [MCC CURRENT USE OF ASPIRIN] Onset: 08-18-2021 Episodic Other aftercare (1 source) manager terminal (current) use of antithrombotics/antip latelets; Translations: [RETAIL MANAGER ANTITHROMBOT/ANTIPLAT LETS] Onset: 06-23-2021 Episodic Other circulatory disease (1 source) Personal history of transient ischemic attack (TIA), and cerebral infarction without residual deficits; Translations: [PERS HX TIA AND CI NO RESID DEFICIT] Onset: 08-18-2021 Episodic Other circulatory disease (2 sources) History of cerebrovascular accident without residual deficits; Translations: [Personal history of transient ischemic attack [TIA], and cerebral infarction without residual deficits] Onset: 12-01-2016 Episodic Other connective tissue disease (2 sources) Musculoskeletal symptom; Translations: [Other musculoskeletal symptoms referable to limbs] Onset: 10-07-2016 Episodic Other lower respiratory disease (2 sources) Dyspnea; Translations: [Other forms of dyspnea] Resolved: 06-21-2021 Episodic Other lower respiratory disease (2 sources) Solitary nodule of lung; Translations: [Solitary pulmonary nodule] Onset: 08-16-2018 Episodic Other non-traumatic joint disorders (2 sources) Pain in right hip joint; Translations: [Pain in right hip] Onset: 12-01-2016 Episodic Other nutritional; endocrine; and metabolic disorders (8 sources) Body mass index 25-29 - overweight; Translations: [Body mass index 26.0-26.9, adult] Onset: [birth year]19[birth year]1959 Episodic Other screening for suspected conditions (not mental disorders or infectious disease) (6 sources) Encounter for screening mammogram for malignant neoplasm of breast; Translations: [Mammography abnormal] Onset: 07-24-2015 Episodic Other skin disorders (2 sources) Nail bed infection; Translations: [Onychia and paronychia of toe] Onset: 10-20-2015 Episodic Screening and history of mental health and substance abuse codes (4 sources) Personal history of nicotine dependence; Translations: [History of tobacco use] Onset: 09-19-2016 Episodic Skin and subcutaneous tissue infections (2 sources) Cellulitis of toe; Translations: [Cellulitis of unspecified toe] Onset: 07-15-2014 Episodic Unclassified (1 source) CONTACT W/AND (SUSP) EXPOS COVID-19; Translations: [CONTACT W/AND (SUSP) EXPOS COVID-19] Onset: 01-07-2022 Unclassified (7 sources) Acute left-sided low back pain without sciatica; Translations: [Acute left-sided low back pain without sciatica] Urinary tract infections (2 sources) Acute cystitis; Translations: [Acute cystitis without hematuria] Resolved: 02-10-2020 Episodic Results Test Name Value Interpretation Reference Range Facility A1C with Estimated Average G ahsan 07-13-2023 Glucose [Mass/Vol] 232 mg/dL Normal [facility] Comment on above: Result Comment: PERF ORMED BY: [place] [address] PATHOLOGIST JAVA MANAGER RACHELLE MACDONALD M.D. Performed By: #### A 1C [facility] eA #### [facility] [address] HbA1c (Bld) [Mass fraction] 9.7 % High 4.3-5.6 [facility] Comment on above: Result Comment: Incr eased risk for diabetes: 5.7 - 6.4 diabetes: >6.4 glycemic control for adults with diabetes: <7.0 Performed By: #### A 1C [facility] eA #### [facility] [address] Alanine aminotransferase [En zymatic activity/volume] in Serum or PlasmaOrdered By: Jose Loyola on 07-13-2023 ALT [Catalytic activity/Vol] 19 U/L 7-52 [facility] Albumin [Mass/volume] in Ser um or Plasma by Bromocresol green (BCG) dye binding methoOrdered By: Jose Loyoal on 07-13-2023 Albumin BCG dye [Mass/Vol] 4.2 g/dL 3.5-5.7 [facility] Alkaline phosphatase [Enzyma tic activity/volume] in Serum or PlasmaOrdered By: Jose Loyola on 07-13-2023 ALP [Catalytic activity/Vol] 107 U/L 34-104 [facility] Aspartate aminotransferase [ Enzymatic activity/volume] in Serum or PlasmaOrdered By: Jose Loyola on 07-13-2023 AST [Catalytic activity/Vol] 15 U/L 13-39 [facility] Basophils Auto (Bld) [#/Vol] Ordered By: Jose Loyola on 07-13-2023 Basophils (Bld) [#/Vol] 0.1 10*3/uL 0.0-0.2 [facility] Basophils/100 WBC Auto (Bld) Ordered By: Jose Loyola on 07-13-2023 Basophils/100 WBC (Bld) 0.8 % . F [facility] Bilirubin.total [Mass/volume ] in Serum or PlasmaOrdered By: Jose Loyola on 07-13-2023 Bilirubin [Mass/Vol] 0.5 mg/dL 0.3-1.0 [facility] Calcium [Mass/volume] in Ser um or PlasmaOrdered By: oJse Loyola on 07-13-2023 Calcium [Mass/Vol] 10.7 mg/dL 8.6-10.3 [facility] Carbon dioxide, total [Moles /volume] in Serum or PlasmaOrdered By: Jose Loyola on 07-13-2023 CO2 [Moles/Vol] 28.9 mmol/L 21.0-31.0 [facility] Chloride [Moles/volume] in S valdo or PlasmaOrdered By: Jose Loyola on 07-13-2023 Chloride [Moles/Vol] 101 mmol/L 98-107 [facility] Complete Blood Count Auto Di ffon 07-13-2023 Basophils (Bld) [#/Vol] 0.1 10*3/uL Normal 0.0-0.2 [facility] Comment on above: Result Comment: PERF ORMED BY: [place] [address] PATHOLOGIST JAVA MANAGER RACHELLE MACDONALD M.D. Performed By: #### C BC, CMP, FE and TIBC, TIM #### [facility] [address] [place] [address] [place] Basophils/100 WBC (Bld) 0.8 % Normal . F [facility] Comment on above: Performed By: #### C BC, CMP, FE and TIBC, TIM #### [facility] [address] [place] [address] [place] Eosinophils (Bld) [#/Vol] 0.2 10*3/uL Normal 0.0-0.45 [facility] Comment on above: Performed By: #### C BC, CMP, FE and TIBC, TIM #### [facility] [address] [place] [address] [place] Eosinophils/100 WBC (Bld) 2.5 % Normal . [facility] Comment on above: Performed By: #### C BC, CMP, FE and TIBC, TIM #### [address] Erythrocyte distribution width (RBC) [Ratio] 13.3 % Normal 11.9-15.3 [facility] Comment on above: Performed By: #### C BC, CMP, FE and TIBC, TIM #### [address] Hematocrit (Bld) [Volume fraction] 35.2 % Normal 34.0-46.4 [facility] Comment on above: Performed By: #### C BC, CMP, FE and TIBC, TIM #### [address] Hemoglobin (Bld) [Mass/Vol] 12.0 g/dL Normal 11.8-15.4 [facility] Comment on above: Performed By: #### C BC, CMP, FE and TIBC, TIM #### [address] Lymphocytes (Bld) [#/Vol] 2.2 10*3/uL Normal 1.00-4.8 [facility] Comment on above: Performed By: #### C BC, CMP, FE and TIBC, TIM #### [address] Lymphocytes/100 WBC (Bld) 25.5 % Normal . [facility] Comment on above: Performed By: #### C BC, CMP, FE and TIBC, TIM #### [address] MCH (RBC) [Entitic mass] 29.5 pg Normal 24.7-34.3 [facility] Comment on above: Performed By: #### C BC, CMP, FE and TIBC, TIM #### [address] MCV (RBC) [Entitic vol] 86.8 fL Normal 80-100 F [facility] Comment on above: Performed By: #### C BC, CMP, FE and TIBC, TIM #### [address] Mean Corpuscular HGB Conc 34.0 g/dL Normal 32.0-35.0 [facility] Comment on above: Performed By: #### C BC, CMP, FE and TIBC, TIM #### [facility] [address] Monocytes (Bld) [#/Vol] 0.8 10*3/uL Normal 0.0-0.8 [facility] Comment on above: Performed By: #### C BC, CMP, FE and TIBC, TIM #### [facility] [address] Monocytes/100 WBC (Bld) 9.1 % Normal . [facility] Comment on above: Performed By: #### C BC, CMP, FE and TIBC, TIM #### [address] Neutrophils (Bld) [#/Vol] 5.3 10*3/uL Normal 1.8-7.7 [facility] Comment on above: Performed By: #### C BC, CMP, FE and TIBC, TIM #### [facility] [address] Neutrophils/100 WBC (Bld) 62.1 % Normal . [facility] Comment on above: Performed By: #### C BC, CMP, FE and TIBC, TIM #### [facility] [address] NRBC% 0.0 /100{WBC} Normal 0-0.5 [facility] Comment on above: Performed By: #### C BC, CMP, FE and TIBC, TIM #### [facility] [address] [place] [address] [place] Platelet mean volume (Bld) [Entitic vol] 9.3 fL Normal 6.3-10.7 [facility] Comment on above: Performed By: #### C BC, CMP, FE and TIBC, TIM #### [facility] [address] [place] [address] [place] Platelets (Bld) [#/Vol] 219 10*3/uL Normal 150-450 [facility] Comment on above: Performed By: #### C BC, CMP, FE and TIBC, TIM #### [address] RBC (Bld) [#/Vol] 4.06 10*6/uL Normal 3.60-5.00 [facility] Comment on above: Performed By: #### C BC, CMP, FE and TIBC, TIM #### [address] WBC (Bld) [#/Vol] 8.6 10*3/uL Normal 3.8-11.6 [facility] Comment on above: Performed By: #### C BC, CMP, FE and TIBC, TIM #### [address] Comprehensive Metabolic Pane marleny 07-13-2023 Albumin [Mass/Vol] 4.2 g/dL Normal 3.5-5.7 [facility] Comment on above: Performed By: #### C BC, CMP, FE and TIBC, TIM #### [address] Albumin/Globulin [Mass ratio] 1.9 {ratio} Normal [facility] Comment on above: Performed By: #### C BC, CMP, FE and TIBC, TIM #### [address] ALP [Catalytic activity/Vol] 107 U/L High 34-104 [facility] Comment on above: Performed By: #### C BC, CMP, FE and TIBC, TIM #### [address] ALT [Catalytic activity/Vol] 19 U/L Normal 7-52 [facility] Comment on above: Performed By: #### C BC, CMP, FE and TIBC, TIM #### [address] Anion gap [Moles/Vol] 9.8 mmol/L Normal 6.0-15.0 [facility] Comment on above: Performed By: #### C BC, CMP, FE and TIBC, TIM #### [address] AST [Catalytic activity/Vol] 15 U/L Normal 13-39 [facility] Comment on above: Performed By: #### C BC, CMP, FE and TIBC, TIM #### [address] Bilirubin [Mass/Vol] 0.5 mg/dL Normal 0.3-1.0 [facility] Comment on above: Performed By: #### C BC, CMP, FE and TIBC, TIM #### [address] Calcium [Mass/Vol] 10.7 mg/dL High 8.6-10.3 [facility] Comment on above: Performed By: #### C BC, CMP, FE and TIBC, TIM #### [address] Chloride [Moles/Vol] 101 mmol/L Normal 98-107 [facility] Comment on above: Performed By: #### C BC, CMP, FE and TIBC, TIM #### [address] CO2 [Moles/Vol] 28.9 mmol/L Normal 21.0-31.0 [facility] Comment on above: Performed By: #### C BC, CMP, FE and TIBC, TIM #### [address] Creatinine [Mass/Vol] 1.13 mg/dL Normal 0.60-1.20 [facility] Comment on above: Performed By: #### C BC, CMP, FE and TIBC, TIM #### [address] Creatinine Clr Calc Pharmacy 34.88 Normal [facility] Comment on above: Performed By: #### C BC, CMP, FE and TIBC, TIM #### [facility] [address] [place] [address] [place] GFR/1.73 sq M.predicted MDRD (S/P/Bld) [Vol rate/Area] 50.109 mL/min/{1.73_m2} Normal [facility] Comment on above: Performed By: #### C BC, CMP, FE and TIBC, TIM #### [facility] [address] Globulin (S) [Mass/Vol] 2.2 g/dL Normal F [facility] Comment on above: Performed By: #### C BC, CMP, FE and TIBC, TIM #### [facility] [address] [place] [address] [place] Glucose [Mass/Vol] 234 mg/dL High 70-100 [facility] Comment on above: Result Comment: [place] Glucose Reference Range is dependent on time and content of last meal. Glucose of more than 200 mg/dL in a nonstressed, ambulatory subject supports the diagnosis of Diabetes Mellitus. ADA recommended reference range Performed By: #### C BC, CMP, FE and TIBC, TIM #### [facility] [address] [place] [address] [place] Potassium [Moles/Vol] 4.7 mmol/L Normal 3.5-5.1 [facility] Comment on above: Performed By: #### C BC, CMP, FE and TIBC, TIM #### [facility] [address] [place] [id number] [place] Protein [Mass/Vol] 6.4 g/dL Normal 6.4-8.9 [facility] Comment on above: Performed By: #### C BC, CMP, FE and TIBC, TIM #### [facility] [address] [place] [id number] [place] Sodium [Moles/Vol] 135 mmol/L Low 136-145 [facility] Comment on above: Performed By: #### C BC, CMP, FE and TIBC, TIM #### [facility] [address] [place] [id number] [place] Urea nitrogen [Mass/Vol] 23 mg/dL Normal 7-25 [facility] Comment on above: Performed By: #### C BC, CMP, FE and TIBC, TIM #### [facility] [address] [place] [address] Creatinine [Mass/volume] in Serum or PlasmaOrdered By: Jose Loyola on 07-13-2023 Creatinine [Mass/Vol] 1.13 mg/dL 0.60-1.20 [facility] Eosinophils Auto (Bld) [#/Vo l]Ordered By: Jose Loyola on 07-13-2023 Eosinophils (Bld) [#/Vol] 0.2 10*3/uL 0.0-0.45 [facility] Eosinophils/100 WBC Auto (Bl d)Ordered By: Jose Loyola on 07-13-2023 Eosinophils/100 WBC (Bld) 2.5 % . [facility] Erythrocyte distribution wid th Auto (RBC) [Ratio]Ordered By: Jose Loyola on 07-13-2023 Erythrocyte distribution width (RBC) [Ratio] 13.3 % 11.9-15.3 [facility] Ferritinon 07-13-2023 Ferritin [Mass/Vol] 101.6 ng/mL Normal 11.0-306.8 [facility] Comment on above: Result Comment: PERF ORMED BY: [place] [address] PATHOLOGIST JAVA MANAGER RACHELLE MACDONALD M.D. Performed By: #### C BC, CMP, FE and TIBC, TIM #### [facility] [address] [place] [address] #### ABDELRAHMAN SERUM, SPE, KAPPA #### [facility] , Ferritin [Mass/volume] in Se rum or PlasmaOrdered By: Jose Loyola on 07-13-2023 Ferritin [Mass/Vol] 101.6 ng/mL 11.0-306.8 [facility] Globulin Calc (S) [Mass/Vol] Ordered By: Jose Loyola on 07-13-2023 Globulin (S) [Mass/Vol] 2.2 g/dL [facility] Glucose [Mass/volume] in Ser um or PlasmaOrdered By: Jose Loyola on 07-13-2023 Glucose [Mass/Vol] 234 mg/dL 70-100 [facility] Comment on above: ADA recommended refe rence rangeRandom Glucose Reference Range is dependent on time and content of last meal. Glucose of more than 200 mg/dL in a nonstressed, ambulatory subject supports the diagnosis of Diabetes Mellitus. Glucose mean value [Mass/vol ume] in Blood Estimated from glycated hemoglobinOrdered By: Ramin De Paz on 07-13-2023 Average glucose Estimated from glycated hemoglobin (Bld) [Mass/Vol] 232 mg/dL [facility] Hematocrit Auto (Bld) [Volum e fraction]Ordered By: Jose Loyola on 07-13-2023 Hematocrit (Bld) [Volume fraction] 35.2 % 34.0-46.4 [facility] Hemoglobin A1c percentageOrd ered By: Ramin De Paz on 07-13-2023 HbA1c (Bld) [Mass fraction] 9.7 % 4.3-5.6 [facility] Comment on above: Increased risk for d iabetes: 5.7 - 6.4diabetes: >6.4glycemic control for adults with diabetes: <7.0 Hemoglobin [Mass/volume] in BloodOrdered By: Jose Loyola on 07-13-2023 Hemoglobin (Bld) [Mass/Vol] 12.0 g/dL 11.8-15.4 [facility] Iron [Mass/volume] in Serum or PlasmaOrdered By: Jose Loyola on 07-13-2023 Iron [Mass/Vol] 72 ug/dL 50-212 [facility] Iron and TIBC Profileon 06-20 % Iron Saturation 22.4 % Normal 20-50 [facility] Comment on above: Performed By: #### C BC, CMP, FE and TIBC, TIM #### [facility] [address] [place] [address] #### ABDELRAHMAN SERUM, SPE, KAPPA #### [facility] , Iron [Mass/Vol] 72 ug/dL Normal 50-212 [facility] Comment on above: Performed By: #### C BC, CMP, FE and TIBC, TIM #### [facility] [address] [place] [address] [place] #### ABDELRAHMAN SERUM, SPE, KAPPA #### [facility] , Total Iron Binding Capacity 322 ug/dL Normal 255-450 [facility] Comment on above: Performed By: #### C BC, CMP, FE and TIBC, TIM #### [facility] [address] [place] [address] [place] #### ABDELRAHMAN SERUM, SPE, KAPPA #### [facility] , Transferrin [Mass/Vol] 230 mg/dL Normal 203-362 [facility] Comment on above: Performed By: #### C BC, CMP, FE and TIBC, TIM #### [facility] [address] [place] [address] [place] #### ABDELRAHMAN SERUM, SPE, KAPPA #### [facility] , Iron binding capacity [Mass/ volume] in Serum or PlasmaOrdered By: Jose Loyola on 07-13-2023 Iron binding capacity [Mass/Vol] 322 ug/dL 255-450 [facility] Iron saturation [Mass Fracti on] in Serum or PlasmaOrdered By: Jose Loyola on 07-13-2023 Iron saturation [Mass fraction] 22.4 % 20-50 [facility] Leukocytes [#/volume] correc [place] for nucleated erythrocytes in Blood by Automated counOrdered By: Jose Loyola on 07-13-2023 WBC corrected for nucl RBC Auto (Bld) [#/Vol] 8.6 10*3/uL 3.8-11.6 [facility] Lymphocytes Auto (Bld) [#/Vo l]Ordered By: Jose Loyola on 07-13-2023 Lymphocytes (Bld) [#/Vol] 2.2 10*3/uL 1.00-4.8 [facility] Lymphocytes/100 WBC Auto (Bl d)Ordered By: Jose Loyola on 07-13-2023 Lymphocytes/100 WBC (Bld) 25.5 % . [facility] MCH Auto (RBC) [Entitic mass ]Ordered By: Jose Loyola on 07-13-2023 MCH (RBC) [Entitic mass] 29.5 pg 24.7-34.3 [facility] MCHC Auto (RBC) [Mass/Vol]Or dered By: Jose Loyola on 07-13-2023 MCHC (RBC) [Mass/Vol] 34.0 g/dL 32.0-35.0 [facility] MCV Auto (RBC) [Entitic vol] Ordered By: Jose Loyola on 07-13-2023 MCV (RBC) [Entitic vol] 86.8 fL 80-100 F [facility] Monocytes Auto (Bld) [#/Vol] Ordered By: Jose Loyola on 07-13-2023 Monocytes (Bld) [#/Vol] 0.8 10*3/uL 0.0-0.8 [facility] Monocytes/100 WBC Auto (Bld) Ordered By: Jose Loyola on 07-13-2023 Monocytes/100 WBC (Bld) 9.1 % . [facility] Neutrophils Auto (Bld) [#/Vo l]Ordered By: Jose Loyola on 07-13-2023 Neutrophils (Bld) [#/Vol] 5.3 10*3/uL 1.8-7.7 [facility] Neutrophils/100 WBC Auto (Bl d)Ordered By: Jose Loyola on 07-13-2023 Neutrophils/100 WBC (Bld) 62.1 % . [facility] No Panel InformationOrdered By: Jose Loyola on 07-13-2023 Estimated GFR (CKD-EPI) 50.109 mL/Min [facility] Creatinine Clearance (Chem 34.88 [facility] Nucleated erythrocytes [Pres ence] in Blood by Automated countOrdered By: Jose Loyola on 07-13-2023 Nucleated RBC Auto Ql (Bld) 0.0 /100{WBC} 0-0.5 [facility] Platelet mean volume Auto (B ld) [Entitic vol]Ordered By: Jose Loyola on 07-13-2023 Platelet mean volume (Bld) [Entitic vol] 9.3 fL 6.3-10.7 [facility] Platelets Auto (Bld) [#/Vol] Ordered By: Jose Loyola on 07-13-2023 Platelets (Bld) [#/Vol] 219 10*3/uL 150-450 [facility] Potassium [Moles/volume] in Serum or PlasmaOrdered By: Jose Loyola on 07-13-2023 Potassium [Moles/Vol] 4.7 mmol/L 3.5-5.1 [facility] Protein [Mass/volume] in Ser um or PlasmaOrdered By: Jose Loyola on 07-13-2023 Protein [Mass/Vol] 6.4 g/dL 6.4-8.9 [facility] RBC Auto (Bld) [#/Vol]Ordere d By: Jose Loyola on 07-13-2023 RBC (Bld) [#/Vol] 4.06 10*6/uL 3.60-5.00 [facility] Serum or plasma albumin/glob ulin mass ratioOrdered By: Jose Loyola on 07-13-2023 Albumin/Globulin [Mass ratio] 1.9 {ratio} [facility] Serum or plasma anion gap de terminationOrdered By: Jose Loyola on 07-13-2023 Anion gap [Moles/Vol] 9.8 mmol/L 6.0-15.0 [facility] Sodium [Moles/volume] in Ser um or PlasmaOrdered By: Jose Loyola on 07-13-2023 Sodium [Moles/Vol] 135 mmol/L 136-145 [facility] Transferrin [Mass/volume] in Serum or PlasmaOrdered By: Jose Loyola on 07-13-2023 Transferrin [Mass/Vol] 230 mg/dL 203-362 [facility] Urea nitrogen [Mass/volume] in Serum or PlasmaOrdered By: Jose Loyola on 07-13-2023 Urea nitrogen [Mass/Vol] 23 mg/dL 7-25 [facility] WBC Auto (Bld) [#/Vol]Ordere d By: Jose Loyola on 07-13-2023 WBC (Bld) [#/Vol] 8.6 10*3/uL 3.8-11.6 [facility] Alanine aminotransferase [En zymatic activity/volume] in Serum or PlasmaOrdered By: Tatiana Christianson on 01-10-2023 ALT [Catalytic activity/Vol] 14 U/L 7-52 [facility] Albumin [Mass/volume] in Ser um or PlasmaOrdered By: Tatiana Christianson on 01-10-2023 Albumin [Mass/Vol] 3.8 g/dL 2.9-4.4 [facility] Albumin [Mass/volume] in Ser um or Plasma by Bromocresol green (BCG) dye binding methoOrdered By: Tatiana Christianson on 01-10-2023 Albumin BCG dye [Mass/Vol] 4.6 g/dL 3.5-5.7 [facility] Alkaline phosphatase [Enzyma tic activity/volume] in Serum or PlasmaOrdered By: Tatiana Christianson on 01-10-2023 ALP [Catalytic activity/Vol] 86 U/L 34-104 [facility] Aspartate aminotransferase [ Enzymatic activity/volume] in Serum or PlasmaOrdered By: Tatiana Christianson on 01-10-2023 AST [Catalytic activity/Vol] 14 U/L 13-39 [facility] Basophils Auto (Bld) [#/Vol] Ordered By: Tatiana Christianson on 01-10-2023 Basophils (Bld) [#/Vol] 0.1 10*3/uL 0.0-0.2 [facility] Basophils/100 WBC Auto (Bld) Ordered By: Tatiana Christianson on 01-10-2023 Basophils/100 WBC (Bld) 0.7 % . [facility] Bilirubin.total [Mass/volume ] in Serum or PlasmaOrdered By: Tatiana Christianson on 01-10-2023 Bilirubin [Mass/Vol] 0.4 mg/dL 0.3-1.0 [facility] Calcium [Mass/volume] in Ser um or PlasmaOrdered By: Tatiana Christianson on 01-10-2023 Calcium [Mass/Vol] 10.6 mg/dL 8.6-10.3 [facility] Carbon dioxide, total [Moles /volume] in Serum or PlasmaOrdered By: Tatiana Christianson on 01-10-2023 CO2 [Moles/Vol] 28.9 mmol/L 21.0-31.0 [facility] Chloride [Moles/volume] in S valdo or PlasmaOrdered By: Tatiana Christianson on 01-10-2023 Chloride [Moles/Vol] 103 mmol/L 98-107 [facility] Complete Blood Count Auto Di ffon 01-10-2023 Basophils (Bld) [#/Vol] 0.1 10*3/uL Normal 0.0-0.2 [facility] Comment on above: Result Comment: PERF ORMED BY: [place] [address] PATHOLOGIST JAVA MANAGER RACHELLE MACDONALD M.D. Performed By: #### C BC, CMP, FE and TIBC, TIM #### [address] #### ABDELRAHMAN SERUM, SPE, KAPPA #### [facility] , Basophils/100 WBC (Bld) 0.7 % Normal . [facility] Comment on above: Performed By: #### C BC, CMP, FE and TIBC, TIM #### [place] [address] [place] #### ABDELRAHMAN SERUM, SPE, KAPPA #### [facility] , Eosinophils (Bld) [#/Vol] 0.3 10*3/uL Normal 0.0-0.45 [facility] Comment on above: Performed By: #### C BC, CMP, FE and TIBC, TIM #### [place] [address] [place] #### ABDELRAHMAN SERUM, SPE, KAPPA #### [facility] , Eosinophils/100 WBC (Bld) 3.1 % Normal . [facility] Comment on above: Performed By: #### C BC, CMP, FE and TIBC, TIM #### [facility] [address] [place] [address] [place] #### ABDELRAHMAN SERUM, SPE, KAPPA #### [facility] , Erythrocyte distribution width (RBC) [Ratio] 13.7 % Normal 11.9-15.3 [facility] Comment on above: Performed By: #### C BC, CMP, FE and TIBC, TIM #### [place] [address] [place] #### ABDELRAHMAN SERUM, SPE, KAPPA #### [facility] , Hematocrit (Bld) [Volume fraction] 35.4 % Normal 34.0-46.4 [facility] Comment on above: Performed By: #### C BC, CMP, FE and TIBC, TIM #### [place] [address] [place] #### ABDELRAHMAN SERUM, SPE, KAPPA #### [facility] , Hemoglobin (Bld) [Mass/Vol] 11.7 g/dL Low 11.8-15.4 [facility] Comment on above: Performed By: #### C BC, CMP, FE and TIBC, TIM #### [place] [address] [place] #### ABDELRAHMAN SERUM, SPE, KAPPA #### [facility] , Lymphocytes (Bld) [#/Vol] 2.2 10*3/uL Normal 1.00-4.8 [facility] Comment on above: Performed By: #### C BC, CMP, FE and TIBC, TIM #### [place] [address] [place] #### ABDELRAHMAN SERUM, SPE, KAPPA #### [facility] , Lymphocytes/100 WBC (Bld) 25.3 % Normal . [facility] Comment on above: Performed By: #### C BC, CMP, FE and TIBC, TIM #### [place] [address] [place] #### ABDELRAHMAN SERUM, SPE, KAPPA #### [facility] , MCH (RBC) [Entitic mass] 28.6 pg Normal 24.7-34.3 [facility] Comment on above: Performed By: #### C BC, CMP, FE and TIBC, TIM #### [place] [address] [place] #### ABDELRAHMAN SERUM, SPE, KAPPA #### [facility] , MCV (RBC) [Entitic vol] 86.3 fL Normal 80-100 F [facility] Comment on above: Performed By: #### C BC, CMP, FE and TIBC, TIM #### [place] [address] [place] #### ABDELRAHMAN SERUM, SPE, KAPPA #### [facility] , Mean Corpuscular HGB Conc 33.1 g/dL Normal 32.0-35.0 [facility] Comment on above: Performed By: #### C BC, CMP, FE and TIBC, TIM #### [place] [address] [place] #### ABDELRAHMAN SERUM, SPE, KAPPA #### [facility] , Monocytes (Bld) [#/Vol] 0.7 10*3/uL Normal 0.0-0.8 [facility] Comment on above: Performed By: #### C BC, CMP, FE and TIBC, TIM #### [place] [address] [place] #### ABDELRAHMAN SERUM, SPE, KAPPA #### [facility] , Monocytes/100 WBC (Bld) 8.6 % Normal . [facility] Comment on above: Performed By: #### C BC, CMP, FE and TIBC, TIM #### [place] [address] [place] #### ABDELRAHMAN SERUM, SPE, KAPPA #### [facility] , Neutrophils (Bld) [#/Vol] 5.3 10*3/uL Normal 1.8-7.7 [facility] Comment on above: Performed By: #### C BC, CMP, FE and TIBC, TIM #### [place] [address] [place] #### ABDELRAHMAN SERUM, SPE, KAPPA #### [facility] , Neutrophils/100 WBC (Bld) 62.3 % Normal . [facility] Comment on above: Performed By: #### C BC, CMP, FE and TIBC, TIM #### [place] [address] [place] #### ABDELRAHMAN SERUM, SPE, KAPPA #### [facility] , NRBC% 0.1 /100{WBC} Normal 0-0.5 [facility] Comment on above: Performed By: #### C BC, CMP, FE and TIBC, TIM #### [place] [address] [place] #### ABDELRAHMAN SERUM, SPE, KAPPA #### [facility] , Platelet mean volume (Bld) [Entitic vol] 9.6 fL Normal 6.3-10.7 [facility] Comment on above: Performed By: #### C BC, CMP, FE and TIBC, TIM #### [place] [address] [place] #### ABDELRAHMAN SERUM, SPE, KAPPA #### [facility] , Platelets (Bld) [#/Vol] 231 10*3/uL Normal 150-450 [facility] Comment on above: Performed By: #### C BC, CMP, FE and TIBC, TIM #### [place] [address] [place] #### ABDELRAHMAN SERUM, SPE, KAPPA #### [facility] , RBC (Bld) [#/Vol] 4.11 10*6/uL Normal 3.60-5.00 [facility] Comment on above: Performed By: #### C BC, CMP, FE and TIBC, TIM #### [place] [address] [place] #### ABDELRAHMAN SERUM, SPE, KAPPA #### [facility] , WBC (Bld) [#/Vol] 8.5 10*3/uL Normal 3.8-11.6 [facility] Comment on above: Performed By: #### C BC, CMP, FE and TIBC, TIM #### [place] [address] [place] #### ABDELRAHMAN SERUM, SPE, KAPPA #### [facility] , Comprehensive Metabolic Pane marleny 01-10-2023 Albumin [Mass/Vol] 4.6 g/dL Normal 3.5-5.7 [facility] Comment on above: Performed By: #### C BC, CMP, FE and TIBC, TIM #### [address] #### ABDELRAHMAN SERUM, SPE, KAPPA #### [facility] , Albumin/Globulin [Mass ratio] 2.0 {ratio} Normal [facility] Comment on above: Performed By: #### C BC, CMP, FE and TIBC, TIM #### [place] [address] [place] #### ABDELRAHMAN SERUM, SPE, KAPPA #### [facility] , ALP [Catalytic activity/Vol] 86 U/L Normal 34-104 [facility] Comment on above: Performed By: #### C BC, CMP, FE and TIBC, TIM #### [place] [address] [place] #### ABDELRAHMAN SERUM, SPE, KAPPA #### [facility] , ALT [Catalytic activity/Vol] 14 U/L Normal 7-52 [facility] Comment on above: Performed By: #### C BC, CMP, FE and TIBC, TIM #### [facility] [address] [place] [address] [place] #### ABDELRAHMAN SERUM, SPE, KAPPA #### [facility] , Anion gap [Moles/Vol] 10.9 mmol/L Normal 6.0-15.0 [facility] Comment on above: Performed By: #### C BC, CMP, FE and TIBC, TIM #### [place] [address] [place] #### ABDELRAHMAN SERUM, SPE, KAPPA #### [facility] , AST [Catalytic activity/Vol] 14 U/L Normal 13-39 [facility] Comment on above: Performed By: #### C BC, CMP, FE and TIBC, TIM #### [address] #### ABDELRAHMAN SERUM, SPE, KAPPA #### [facility] , Bilirubin [Mass/Vol] 0.4 mg/dL Normal 0.3-1.0 [facility] Comment on above: Performed By: #### C BC, CMP, FE and TIBC, TIM #### [place] [address] [place] #### ABDELRAHMAN SERUM, SPE, KAPPA #### [facility] , Calcium [Mass/Vol] 10.6 mg/dL High 8.6-10.3 [facility] Comment on above: Performed By: #### C BC, CMP, FE and TIBC, TIM #### [place] [address] [place] #### ABDELRAHMAN SERUM, SPE, KAPPA #### [facility] , Chloride [Moles/Vol] 103 mmol/L Normal 98-107 [facility] Comment on above: Performed By: #### C BC, CMP, FE and TIBC, TIM #### [facility] [address] [place] [address] [place] #### ABDELRAHMAN SERUM, SPE, KAPPA #### [facility] , CO2 [Moles/Vol] 28.9 mmol/L Normal 21.0-31.0 [facility] Comment on above: Performed By: #### C BC, CMP, FE and TIBC, TIM #### [place] [address] [place] #### ABDELRAHMAN SERUM, SPE, KAPPA #### [facility] , Creatinine [Mass/Vol] 1.09 mg/dL Normal 0.60-1.20 [facility] Comment on above: Performed By: #### C BC, CMP, FE and TIBC, TIM #### [place] [address] [place] #### ABDELRAHMAN SERUM, SPE, KAPPA #### [facility] , Creatinine Clr Calc Pharmacy 35.85 [facility] Comment on above: Performed By: #### C BC, CMP, FE and TIBC, TIM #### [place] [address] [place] #### ABDELRAHMAN SERUM, SPE, KAPPA #### [facility] , GFR/1.73 sq M.predicted MDRD (S/P/Bld) [Vol rate/Area] 52.323 mL/min/{1.73_m2} [facility] Comment on above: Performed By: #### C BC, CMP, FE and TIBC, TIM #### [place] [address] [place] #### ABDELRAHMAN SERUM, SPE, KAPPA #### [facility] , Globulin (S) [Mass/Vol] 2.3 g/dL Normal [facility] Comment on above: Performed By: #### C BC, CMP, FE and TIBC, TIM #### [place] [address] [place] #### ABDELRAHMAN SERUM, SPE, KAPPA #### [facility] , Glucose [Mass/Vol] 170 mg/dL High 70-100 [facility] Comment on above: Result Comment: [place] om Glucose Reference Range is dependent on time and content of last meal. Glucose of more than 200 mg/dL in a nonstressed, ambulatory subject supports the diagnosis of Diabetes Mellitus. ADA recommended reference range Performed By: #### C BC, CMP, FE and TIBC, TIM #### [place] [address] [place] #### ABDELRAHMAN SERUM, SPE, KAPPA #### [facility] , Potassium [Moles/Vol] 4.8 mmol/L Normal 3.5-5.1 [facility] Comment on above: Performed By: #### C BC, CMP, FE and TIBC, TIM #### [place] [address] [place] #### ABDELRAHMAN SERUM, SPE, KAPPA #### [facility] , Protein [Mass/Vol] 6.9 g/dL Normal 6.0-8.5 [facility] Comment on above: Performed By: #### C BC, CMP, FE and TIBC, TIM #### [place] [address] [place] #### ABDELRAHMAN SERUM, SPE, KAPPA #### [facility] , Sodium [Moles/Vol] 138 mmol/L Normal 136-145 [facility] Comment on above: Performed By: #### C BC, CMP, FE and TIBC, TIM #### [place] [address] [place] #### ABDELRAHMAN SERUM, SPE, KAPPA #### [facility] , Urea nitrogen [Mass/Vol] 20 mg/dL Normal 7-25 [facility] Comment on above: Performed By: #### C BC, CMP, FE and TIBC, TIM #### [place] [address] [place] #### ABDELRAHMAN SERUM, SPE, KAPPA #### [facility] , Creatinine [Mass/volume] in Serum or PlasmaOrdered By: Tatiana Christianson on 01-10-2023 Creatinine [Mass/Vol] 1.09 mg/dL 0.60-1.20 [facility] Eosinophils Auto (Bld) [#/Vo l]Ordered By: Tatiana Christianson on 01-10-2023 Eosinophils (Bld) [#/Vol] 0.3 10*3/uL 0.0-0.45 [facility] Eosinophils/100 WBC Auto (Bl d)Ordered By: Tatiana Meghan on 01-10-2023 Eosinophils/100 WBC (Bld) 3.1 % . [facility] Erythrocyte distribution wid th Auto (RBC) [Ratio]Ordered By: Tatiana Christianson on 01-10-2023 Erythrocyte distribution width (RBC) [Ratio] 13.7 % 11.9-15.3 [facility] Ferritinon 01-10-2023 Ferritin [Mass/Vol] 23.3 ng/mL Normal 11.0-306.8 [facility] Comment on above: Result Comment: PERF ORMED BY: [place] [address] PATHOLOGIST JAVA MANAGER RACHELLE MACDONALD M.D. Performed By: #### C BC, CMP, FE and TIBC, TIM #### [facility] [address] [place] [address] #### ABDELRAHMAN SERUM, SPE, KAPPA #### [facility] , Ferritin [Mass/volume] in Se rum or PlasmaOrdered By: Tatianakath Christianson on 01-10-2023 Ferritin [Mass/Vol] 23.3 ng/mL 11.0-306.8 [facility] Free K+L LT Chains, Qn, Son 01-10-2023 Free [place] Light Chains, S 42.6 mg/L High 3.3-19.4 [facility] Comment on above: Performed By: #### C BC, CMP, FE and TIBC, TIM #### [facility] [address] [place] [address] [place] #### ABDELRAHMAN SERUM, SPE, KAPPA #### [facility] , Free [place]ambda Light Chains, S 19.4 mg/L Normal 5.7-26.3 [facility] Comment on above: Performed By: #### C BC, CMP, FE and TIBC, TIM #### [facility] [address] [place] [address] [place] #### ABDELRAHMAN SERUM, SPE, KAPPA #### [facility] , [place]/Lambda Ratio, S 2.20 High 0.26-1.65 [facility] Comment on above: Result Comment: Perf ormed at: CB - [facility] [address] [id number] Pipe Coverer And Insulator: Rio Huber PhD, Phone: [phone] PERFORMED BY: [place] [address] PATHOLOGIST JAVA MANAGER RACHELLE MACDONALD M.D. Performed By: #### C BC, CMP, FE and TIBC, TIM #### [address] #### ABDELRAHMAN SERUM, SPE, KAPPA #### [facility] , Globulin Calc (S) [Mass/Vol] Ordered By: Tatiana Christianson on 01-10-2023 Globulin (S) [Mass/Vol] 2.3 g/dL [facility] Glucose [Mass/volume] in Ser um or PlasmaOrdered By: Tatiana Christianson on 01-10-2023 Glucose [Mass/Vol] 170 mg/dL 70-100 [facility] Comment on above: ADA recommended refe rence rangeRandom Glucose Reference Range is dependent on time and content of last meal. Glucose of more than 200 mg/dL in a nonstressed, ambulatory subject supports the diagnosis of Diabetes Mellitus. Hematocrit Auto (Bld) [Volum e fraction]Ordered By: Tatiana Christianson on 01-10-2023 Hematocrit (Bld) [Volume fraction] 35.4 % 34.0-46.4 [facility] Hemoglobin [Mass/volume] in BloodOrdered By: Tatiana Christianson on 01-10-2023 Hemoglobin (Bld) [Mass/Vol] 11.7 g/dL 11.8-15.4 [facility] IgA [Mass/volume] in Serum o r PlasmaOrdered By: Tatiana Christianson on 01-10-2023 IgA [Mass/Vol] 60 mg/dL 64-422 [facility] IgG [Mass/volume] in Serum o r PlasmaOrdered By: Tatiana Christianson on 01-10-2023 IgG [Mass/Vol] 826 mg/dL [phone] [facility] IgM [Mass/volume] in Serum o r PlasmaOrdered By: Tatiana Christianson on 01-10-2023 IgM [Mass/Vol] 61 mg/dL 26-217 [facility] Immunofixation,Serumon 01-10 Immunofixation, Serum Comment: Normal . [facility] Comment on above: Result Comment: Pres ence of monoclonal protein is unclear at this time. Suggest repeat in 3 to 6 months if clinically indicated. Performed By: #### C BC, CMP, FE and TIBC, TIM #### [facility] [address] [place] [address] [place] #### ABDELRAHMAN SERUM, SPE, KAPPA #### [facility] , Immunoglobulin A, Serum 60 mg/dL Low 64-422 [facility] Comment on above: Performed By: #### C BC, CMP, FE and TIBC, TIM #### [facility] [address] [place] [address] [place] #### ABDELRAHMAN SERUM, SPE, KAPPA #### [facility] , Immunoglobulin G 826 mg/dL Normal 586-1602 [facility] Comment on above: Performed By: #### C BC, CMP, FE and TIBC, TIM #### [facility] [address] [place] [address] [place] #### ABDELRAHMAN SERUM, SPE, KAPPA #### [facility] , Immunoglobulin M, Serum 61 mg/dL Normal 26-217 [facility] Comment on above: Performed By: #### C BC, CMP, FE and TIBC, TIM #### [facility] [address] [place] [address] [place] #### ABDELRAHMAN SERUM, SPE, KAPPA #### [facility] , Immunoglobulin light chains. kappa.free [Mass/volume] in SerumOrdered By: Tatiana Christianson on 01-10-2023 Immunoglobulin light chains.kappa.free (S) [Mass/Vol] 42.6 mg/L 3.3-19.4 [facility] Immunoglobulin light chains. kappa.free/Immunoglobulin light chains.lambda.free [MassOrdered By: Tatiana Christianson on 01-10-2023 Immunoglobulin light chains.kappa.free/Immuno globulin light chains.lambda.free (S) [Mass ratio] 2.20 0.26-1.65 [facility] Comment on above: Performed at: [place] [id number] Director: Rio Huber PhD, Phone: [phone] Immunoglobulin light chains. lambda.free [Mass/volume] in Serum or PlasmaOrdered By: Tatiana Christianson on 01-10-2023 Immunoglobulin light chains.lambda.free [Mass/Vol] 19.4 mg/L 5.7-26.3 [facility] Iron [Mass/volume] in Serum or PlasmaOrdered By: Tatiana Christianson on 01-10-2023 Iron [Mass/Vol] 63 ug/dL 50-212 [facility] Iron and TIBC Profileon 12-18 % Iron Saturation 17.6 % Low 20-50 [facility] Comment on above: Performed By: #### C BC, CMP, FE and TIBC, TIM #### [facility] [address] [place] [address] [place] #### ABDELRAHMAN SERUM, SPE, KAPPA #### [facility] , Iron [Mass/Vol] 63 ug/dL Normal 50-212 [facility] Comment on above: Performed By: #### C BC, CMP, FE and TIBC, TIM #### [facility] [address] [place] [address] [place] #### ABDELRAHMAN SERUM, SPE, KAPPA #### [facility] , Total Iron Binding Capacity 357 ug/dL Normal 255-450 [facility] Comment on above: Performed By: #### C BC, CMP, FE and TIBC, TIM #### [facility] [address] [place] [address] [place] #### ABDELRAHMAN SERUM, SPE, KAPPA #### [facility] , Transferrin [Mass/Vol] 255 mg/dL Normal 203-362 [facility] Comment on above: Performed By: #### C BC, CMP, FE and TIBC, TIM #### [facility] [address] [place] [address] [place] #### ABDELRAHMAN SERUM, SPE, KAPPA #### [facility] , Iron binding capacity [Mass/ volume] in Serum or PlasmaOrdered By: Tatiana Christianson on 01-10-2023 Iron binding capacity [Mass/Vol] 357 ug/dL 255-450 [facility] Iron saturation [Mass Fracti on] in Serum or PlasmaOrdered By: Tatiana Christianson on 01-10-2023 Iron saturation [Mass fraction] 17.6 % 20-50 [facility] Leukocytes [#/volume] correc laurel for nucleated erythrocytes in Blood by Automated counOrdered By: Tatiana Christianson on 01-10-2023 WBC corrected for nucl RBC Auto (Bld) [#/Vol] 8.5 10*3/uL 3.8-11.6 [facility] Lymphocytes Auto (Bld) [#/Vo l]Ordered By: Tatiana Christianson on 01-10-2023 Lymphocytes (Bld) [#/Vol] 2.2 10*3/uL 1.00-4.8 [facility] Lymphocytes/100 WBC Auto (Bl d)Ordered By: Tatiana Christianson on 01-10-2023 Lymphocytes/100 WBC (Bld) 25.3 % . [facility] MCH Auto (RBC) [Entitic mass ]Ordered By: Tatiana Christianson on 01-10-2023 MCH (RBC) [Entitic mass] 28.6 pg 24.7-34.3 [facility] MCHC Auto (RBC) [Mass/Vol]Or dered By: Tatiana Christianson on 01-10-2023 MCHC (RBC) [Mass/Vol] 33.1 g/dL 32.0-35.0 [facility] MCV Auto (RBC) [Entitic vol] Ordered By: Tatiana Christianson on 01-10-2023 MCV (RBC) [Entitic vol] 86.3 fL 80-100 [facility] Monocytes Auto (Bld) [#/Vol] Ordered By: Tatiana Christianson on 01-10-2023 Monocytes (Bld) [#/Vol] 0.7 10*3/uL 0.0-0.8 [facility] Monocytes/100 WBC Auto (Bld) Ordered By: Tatiana Christianson on 01-10-2023 Monocytes/100 WBC (Bld) 8.6 % . [facility] Neutrophils Auto (Bld) [#/Vo l]Ordered By: Tatiana Christianson on 01-10-2023 Neutrophils (Bld) [#/Vol] 5.3 10*3/uL 1.8-7.7 [facility] Neutrophils/100 WBC Auto (Bl d)Ordered By: Tatiana Christianson on 01-10-2023 Neutrophils/100 WBC (Bld) 62.3 % . [facility] No Panel InformationOrdered By: Tatiana Christianson on 01-10-2023 Estimated GFR (CKD-EPI) 52.323 mL/Min [facility] Creatinine Clearance (Chem 35.85 [facility] Protein Electrophoresis M-Gabriel Comment: g/dL Not Observed [facility] Comment on above: SPE shows an asymmet rical gamma. Protein Electrophoresis Note See comment . [facility] Comment on above: Protein electrophore sis scan will follow via computer,mail, or crew truck driver delivery. Serum Immunofixation Comment: . [facility] Comment on above: Presence of monoclon al protein is unclear at this time. Suggestrepeat in 3 to 6 months if clinically indicated. Nucleated erythrocytes [Pres ence] in Blood by Automated countOrdered By: Tatiana Christianson on 01-10-2023 Nucleated RBC Auto Ql (Bld) 0.1 /100{WBC} 0-0.5 [facility] Platelet mean volume Auto (B ld) [Entitic vol]Ordered By: Tatiana Christianson on 01-10-2023 Platelet mean volume (Bld) [Entitic vol] 9.6 fL 6.3-10.7 [facility] Platelets Auto (Bld) [#/Vol] Ordered By: Tatiana Christianson on 01-10-2023 Platelets (Bld) [#/Vol] 231 10*3/uL 150-450 [facility] Potassium [Moles/volume] in Serum or PlasmaOrdered By: Tatiana Christianson on 01-10-2023 Potassium [Moles/Vol] 4.8 mmol/L 3.5-5.1 [facility] Protein Electrophoresis, Ser umon 01-10-2023 Albumin [Mass/Vol] 3.8 g/dL Normal 2.9-4.4 [facility] Comment on above: Performed By: #### C BC, CMP, FE and TIBC, TIM #### [facility] [address] [place] [address] [place] #### ABDELRAHMAN SERUM, SPE, KAPPA #### [facility] , Albumin/Globulin [Mass ratio] 1.2 {ratio} Normal 0.7-1.7 [facility] Comment on above: Performed By: #### C BC, CMP, FE and TIBC, TIM #### [facility] [address] [place] [address] [place] #### ABDELRAHMAN SERUM, SPE, KAPPA #### [facility] , Foezm-1-Inklxuff 0.3 g/dL Normal 0.0-0.4 [facility] Comment on above: Performed By: #### C BC, CMP, FE and TIBC, TIM #### [facility] [address] [place] [address] [place] #### ABDELRAHMAN SERUM, SPE, KAPPA #### [facility] , Qwsma-0-Vscojtpi 1.1 g/dL High 0.4-1.0 [facility] Comment on above: Performed By: #### C BC, CMP, FE and TIBC, TIM #### [place] [address] [place] #### ABDELRAHMAN SERUM, SPE, KAPPA #### [facility] , Beta Globulin 0.9 g/dL Normal 0.7-1.3 [facility] Comment on above: Performed By: #### C BC, CMP, FE and TIBC, TIM #### [place] [address] [place] #### ABDELRAHMAN SERUM, SPE, KAPPA #### [facility] , Gamma Globulin 0.9 g/dL Normal 0.4-1.8 [facility] Comment on above: Performed By: #### C BC, CMP, FE and TIBC, TIM #### [address] #### ABDELRAHMAN SERUM, SPE, KAPPA #### [facility] , Globulin (S) [Mass/Vol] 3.1 g/dL Normal 2.2-3.9 [facility] Comment on above: Performed By: #### C BC, CMP, FE and TIBC, TIM #### [place] [address] [place] #### ABDELRAHMAN SERUM, SPE, KAPPA #### [facility] , M-Gabriel Comment: Normal Not Observed [facility] Comment on above: Result Comment: SPE shows an asymmetrical gamma. Performed By: #### C BC, CMP, FE and TIBC, TIM #### [place] [address] [place] #### ABDELRAHMAN SERUM, SPE, KAPPA #### [facility] , SPE-Note Normal . [facility] Comment on above: Result Comment: Prot ein electrophoresis scan will follow via computer, mail, or crew truck driver delivery. Performed By: #### C BC, CMP, FE and TIBC, TIM #### [place] [address] [place] #### ABDELRAHMAN SERUM, SPE, KAPPA #### [facility] , Protein [Mass/volume] in Ser um or PlasmaOrdered By: Tatiana Christianson on 01-10-2023 Protein [Mass/Vol] 6.9 g/dL 6.0-8.5 [facility] RBC Auto (Bld) [#/Vol]Ordere d By: Tatiana Christianson on 01-10-2023 RBC (Bld) [#/Vol] 4.11 10*6/uL 3.60-5.00 [facility] Serum globulin measurement ( mass/volume)Ordered By: Tatiana Christianson on 01-10-2023 Globulin (S) [Mass/Vol] 3.1 g/dL 2.2-3.9 [facility] Serum or plasma albumin/glob ulin mass ratioOrdered By: Tatiana Christianson on 01-10-2023 Albumin/Globulin [Mass ratio] 2.0 {ratio} [facility] Albumin/Globulin [Mass ratio] 1.2 {ratio} 0.7-1.7 [facility] Serum or plasma alpha 1 glob ulin measurement by electrophoresis (mass/volume)Ordered By: Tatiana Christianson on 01-10-2023 Alpha 1 globulin Elph [Mass/Vol] 0.3 g/dL 0.0-0.4 [facility] Serum or plasma alpha 2 glob ulin measurement by electrophoresis (mass/volume)Ordered By: Tatiana Christianson on 01-10-2023 Alpha 2 globulin Elph [Mass/Vol] 1.1 g/dL 0.4-1.0 [facility] Serum or plasma anion gap de terminationOrdered By: Tatiana Christianson on 01-10-2023 Anion gap [Moles/Vol] 10.9 mmol/L 6.0-15.0 [facility] Serum or plasma beta globuli n measurement by electrophoresis (mass/volume)Ordered By: Tatiana Christianson on 01-10-2023 Beta globulin Elph [Mass/Vol] 0.9 g/dL 0.7-1.3 [facility] Serum or plasma gamma globul in measurement by electrophoresis (mass/volume)Ordered By: Tatiana Christianson on 01-10-2023 Gamma globulin Elph [Mass/Vol] 0.9 g/dL 0.4-1.8 [facility] Sodium [Moles/volume] in Ser um or PlasmaOrdered By: Tatiana Christianson on 01-10-2023 Sodium [Moles/Vol] 138 mmol/L 136-145 [facility] Transferrin [Mass/volume] in Serum or PlasmaOrdered By: Tatiana Christianson on 01-10-2023 Transferrin [Mass/Vol] 255 mg/dL 203-362 [facility] Urea nitrogen [Mass/volume] in Serum or PlasmaOrdered By: Tatiana Christianson on 01-10-2023 Urea nitrogen [Mass/Vol] 20 mg/dL 7-25 [facility] WBC Auto (Bld) [#/Vol]Ordere d By: Tatiana Christianson on 01-10-2023 WBC (Bld) [#/Vol] 8.5 10*3/uL 3.8-11.6 [facility] Albumin [Mass/volume] in Ser um or PlasmaOrdered By: Jose Loyola on 07-11-2022 Albumin [Mass/Vol] 4.3 g/dL 3.2-5.5 [facility] Basophils Auto (Bld) [#/Vol] Ordered By: Jose Loyola on 07-11-2022 Basophils (Bld) [#/Vol] 0.1 10*3/uL 0.0-0.2 [facility] Basophils/100 WBC Auto (Bld) Ordered By: Jose Loyola on 07-11-2022 Basophils/100 WBC (Bld) 0.7 % . F [facility] CT biopsyOrdered By: Jose Loyola on 07-11-2022 Transferrin [Mass/Vol] 256 mg/dL 180-380 [facility] Creatinine and Glomerular fi ltration rate.predicted panel (S/P/Bld)Ordered By: Jose Loyola on 07-11-2022 Creatinine [Mass/Vol] 1.30 mg/dL 0.44-1.03 [facility] Eosinophils Auto (Bld) [#/Vo l]Ordered By: Jose Loyola on 07-11-2022 Eosinophils (Bld) [#/Vol] 0.3 10*3/uL 0.0-0.45 [facility] Eosinophils/100 WBC Auto (Bl d)Ordered By: Jose Loyola on 07-11-2022 Eosinophils/100 WBC (Bld) 3.1 % . [facility] Erythrocyte distribution wid th Auto (RBC) [Ratio]Ordered By: Jose Loyola on 07-11-2022 Erythrocyte distribution width (RBC) [Ratio] 13.7 % 11.9-15.3 [facility] Estimated glomerular filtrat ion rate (GFR) non- AmericanOrdered By: Jose Loyola on 07-11-2022 GFR/1.73 sq M.predicted among non-blacks MDRD (S/P/Bld) [Vol rate/Area] 40 mL/Min [facility] Ferritin [Mass/volume] in Se rum or PlasmaOrdered By: Jose Loyola on 07-11-2022 Ferritin [Mass/Vol] 53.8 ng/mL 11-306.8 [facility] Globulin Calc (S) [Mass/Vol] Ordered By: Jose Loyola on 07-11-2022 Globulin (S) [Mass/Vol] 2.5 g/dL [facility] Glucose mean value [Mass/vol ume] in Blood Estimated from glycated hemoglobinOrdered By: Ramin De Paz on 07-11-2022 Average glucose Estimated from glycated hemoglobin (Bld) [Mass/Vol] 171 mg/dL [facility] Hematocrit Auto (Bld) [Volum e fraction]Ordered By: Jose Loyola on 07-11-2022 Hematocrit (Bld) [Volume fraction] 38.0 % 34.0-46.4 [facility] Hemoglobin A1c percentageOrd ered By: Ramin De Paz on 07-11-2022 HbA1c (Bld) [Mass fraction] 7.6 % 4.3-5.6 [facility] Comment on above: Increased risk for d iabetes: 5.7 - 6.4diabetes: >6.4glycemic control for adults with diabetes: <7.0 Hemoglobin [Mass/volume] in BloodOrdered By: Jose Loyola on 07-11-2022 Hemoglobin (Bld) [Mass/Vol] 12.4 g/dL 11.8-15.4 [facility] Iron [Mass/volume] in Serum or PlasmaOrdered By: Jose Loyola on 07-11-2022 Iron [Mass/Vol] 69 ug/dL 40-150 [facility] Iron binding capacity [Mass/ volume] in Serum or PlasmaOrdered By: Jose Loyola on 07-11-2022 Iron binding capacity [Mass/Vol] 358 ug/dL 255-450 [facility] Iron saturation [Mass Fracti on] in Serum or PlasmaOrdered By: Jose Loyola on 07-11-2022 Iron saturation [Mass fraction] 19.3 % 20-50 [facility] Leukocytes [#/volume] correc laurel for nucleated erythrocytes in Blood by Automated counOrdered By: Jose Loyola on 07-11-2022 WBC corrected for nucl RBC Auto (Bld) [#/Vol] 9.6 10*3/uL 3.8-11.6 [facility] Lymphocytes Auto (Bld) [#/Vo l]Ordered By: Jose Loyola on 07-11-2022 Lymphocytes (Bld) [#/Vol] 2.6 10*3/uL 1.00-4.8 [facility] Lymphocytes/100 WBC Auto (Bl d)Ordered By: Jose Loyola on 07-11-2022 Lymphocytes/100 WBC (Bld) 27.7 % . [facility] MCH Auto (RBC) [Entitic mass ]Ordered By: Jose Loyola on 07-11-2022 MCH (RBC) [Entitic mass] 29.1 pg 24.7-34.3 [facility] MCHC Auto (RBC) [Mass/Vol]Or dered By: Jose Loyola on 07-11-2022 MCHC (RBC) [Mass/Vol] 32.7 g/dL 32.0-35.0 [facility] MCV Auto (RBC) [Entitic vol] Ordered By: Jose Loyola on 07-11-2022 MCV (RBC) [Entitic vol] 88.8 fL 80-100 [facility] Monocytes Auto (Bld) [#/Vol] Ordered By: Jose Loyola on 07-11-2022 Monocytes (Bld) [#/Vol] 0.8 10*3/uL 0.0-0.8 [facility] Monocytes/100 WBC Auto (Bld) Ordered By: Jose Loyola on 07-11-2022 Monocytes/100 WBC (Bld) 8.0 % . [facility] Neutrophils Auto (Bld) [#/Vo l]Ordered By: Jose Loyola on 07-11-2022 Neutrophils (Bld) [#/Vol] 5.8 10*3/uL 1.8-7.7 [facility] Neutrophils/100 WBC Auto (Bl d)Ordered By: Jose Loyola on 07-11-2022 Neutrophils/100 WBC (Bld) 60.5 % . [facility] No Panel InformationOrdered By: Jose Loyola on 07-11-2022 Estimated GFR () 48 mL/Min [facility] Comment on above: GFR estimated refere nce range: According to KDOQI guidelines, <60 ml/min/1.73m2 is sufficient to diagnose a patient with chronic kidney disease. Pharmacy Creatinine Clearance (Chem 31.24 [facility] Nucleated erythrocytes [Pres ence] in Blood by Automated countOrdered By: Jose Loyola on 07-11-2022 Nucleated RBC Auto Ql (Bld) 0.1 /100{WBC} 0-0.5 [facility] Platelet mean volume Auto (B ld) [Entitic vol]Ordered By: Jose Loyola on 07-11-2022 Platelet mean volume (Bld) [Entitic vol] 9.7 fL 6.3-10.7 [facility] Platelets Auto (Bld) [#/Vol] Ordered By: Jose Loyola on 07-11-2022 Platelets (Bld) [#/Vol] 259 10*3/uL 150-450 [facility] Protein [Mass/volume] in Ser um or PlasmaOrdered By: Jose Loyola on 07-11-2022 Protein [Mass/Vol] 6.8 g/dL 6.1-7.9 [facility] RBC Auto (Bld) [#/Vol]Ordere d By: Jose Loyola on 07-11-2022 RBC (Bld) [#/Vol] 4.27 10*6/uL 3.60-5.00 [facility] Serum or plasma alanine landaverde otransferase measurement without P-5'-P (enzymatic activiOrdered By: Jose Loyola on 07-11-2022 ALT No additional P-5'-P [Catalytic activity/Vol] 21 U/L 10-60 [facility] Serum or plasma albumin/glob ulin mass ratioOrdered By: Jose Loyola on 07-11-2022 Albumin/Globulin [Mass ratio] 1.7 {ratio} [facility] Serum or plasma alkaline jesus sphatase measurement (enzymatic activity/volume)Ordered By: Jose Loyola on 07-11-2022 ALP [Catalytic activity/Vol] 81 U/L 32-92 [facility] Serum or plasma anion gap de terminationOrdered By: Jose Loyola on 07-11-2022 Anion gap [Moles/Vol] 17.0 mmol/L 6.0-15.0 [facility] Serum or plasma aspartate am inotransferase measurement (enzymatic activity/volume)Ordered By: Jose Loyola on 07-11-2022 AST [Catalytic activity/Vol] 19 U/L 10-42 [facility] Serum or plasma calcium jimmy urement (mass/volume)Ordered By: Jose Loyola on 07-11-2022 Calcium [Mass/Vol] 10.6 mg/dL 8.2-10.2 [facility] Serum or plasma chloride lacho surement (moles/volume)Ordered By: Jose Loyola on 07-11-2022 Chloride [Moles/Vol] 99 mmol/L 95-114 [facility] Serum or plasma glucose jimmy urement (mass/volume)Ordered By: Jose Loyola on 07-11-2022 Glucose [Mass/Vol] 155 mg/dL 70-100 [facility] Comment on above: ADA recommended refe rence rangeRandom Glucose Reference Range is dependent on time and content of last meal. Glucose of more than 200 mg/dL in a nonstressed, ambulatory subject supports the diagnosis of Diabetes Mellitus. Serum or plasma potassium me asurement (moles/volume)Ordered By: Jose Loyola on 07-11-2022 Potassium [Moles/Vol] 4.8 mmol/L 3.5-5.1 [facility] Serum or plasma sodium measu rement (moles/volume)Ordered By: Jose Loyola on 07-11-2022 Sodium [Moles/Vol] 137 mmol/L 136-146 [facility] Serum or plasma total biliru bin measurement (mass/volume)Ordered By: Jose Loyola on 07-11-2022 Bilirubin [Mass/Vol] 0.5 mg/dL 0.3-1.2 [facility] Serum or plasma total carbon dioxide measurement (moles/volume)Ordered By: Jose Loyola on 07-11-2022 CO2 [Moles/Vol] 25.8 mmol/L 22.0-30.0 [facility] Serum or plasma urea nitroge n measurement (mass/volume)Ordered By: Jose Loyola on 07-11-2022 Urea nitrogen [Mass/Vol] 23 mg/dL 03-11 [facility] WBC Auto (Bld) [#/Vol]Ordere d By: Jose Loyola on 07-11-2022 WBC (Bld) [#/Vol] 9.6 10*3/uL 3.8-11.6 [facility] CALCIUM 24 HR URINEon 2021 CALC, 24 HR UR 134.0 mg/24 hr Normal 100.0-300.0 [facility] Comment on above: Performed By: #### B MP #### [facility] [address] [place], [place] [address] Dr. Jessie Cheney UR CALCIUM 6.7 mg/dL Normal 5.1-21.0 [facility] Comment on above: Performed By: #### B MP #### [facility] [address] [place], [place] [address] Dr. Jessie Cheney UR TOT VOL 2000 ml/24 HR Normal [facility] Comment on above: Performed By: #### B MP #### [facility] [address] [place] [address] Dr. Jessie Cheney PTH INTACTon 05-31-2022 PTH, Intact 37 pg/mL Normal 15-65 [facility] Comment on above: Performed By: #### B MP #### [facility] [address] [place] [address] Dr. Jessie Cheney PHOSPHORUSon 05-30-2022 Phosphate [Mass/Vol] 2.6 mg/dL Normal 2.6-4.7 [facility] Comment on above: Performed By: #### T SH, FT3 #### [facility] [address] [place] [address] Dr. Jessie Cheney PROF CHEM 8 (BAS METB)on Anion gap [Moles/Vol] 11.6 mmol/L Normal [facility] Comment on above: Performed By: #### T KIRA, FT3 #### [facility] [address] [place] [address] Dr. Jessie Cheney Calcium [Mass/Vol] 10.3 mg/dL Critically high 8.5-10.1 [facility] Comment on above: Performed By: #### T KIRA, FT3 #### [facility] [address] [place] [address] Dr. Jessie Cheney Chloride [Moles/Vol] 99 mmol/L Normal 98-107 [facility] Comment on above: Performed By: #### T SH, FT3 #### [facility] [address] [place] [address] Dr. Jessie Cheney CO2 [Moles/Vol] 27.8 mmol/L Normal 21.0-32.0 [facility] Comment on above: Performed By: #### T SH, FT3 #### [facility] [address] [place] [address] Dr. Jessie Cheney Creatinine [Mass/Vol] 1.26 mg/dL Critically high 0.55-1.02 [facility] Comment on above: Performed By: #### T SH, FT3 #### [facility] [address] [place] [address] [address] Jessie Cheney EGFR-AF MACEDONIAN 50 mL/min/1.73m2 Critically low >=60 [facility] Comment on above: Performed By: #### T SH, FT3 #### [facility] [address] [place] [address] Dr. Jessie Cheney EGFR-NON AF MACEDONIAN 41 mL/min/1.73m2 Critically low >=60 [facility] Comment on above: Performed By: #### T SH, FT3 #### [facility] [address] [place] [address] Dr. Jessie Cheney Glucose [Mass/Vol] 220 mg/dL Critically high 74-106 [facility] Comment on above: Performed By: #### T SH, FT3 #### [facility] [address] [place] [address] Dr. Jessie Cheney Potassium [Moles/Vol] 4.4 mmol/L Normal 3.5-5.1 [facility] Comment on above: Performed By: #### T SH, FT3 #### [facility] [address] [place] [address] Dr. Jessie Cheney Sodium [Moles/Vol] 134 mmol/L Critically low 136-145 [facility] Comment on above: Performed By: #### T SH, FT3 #### [facility] [address] [place] [address] Dr. Jessie Cheney Urea nitrogen [Mass/Vol] 27.0 mg/dL Critically high 7.0-18 .0 [facility] Comment on above: Performed By: #### T SH, FT3 #### [facility] [address] [place] [address] Dr. Jessie Cheney Urea nitrogen/Creatinine [Mass ratio] 21.4 mg/mg Normal [facility] Comment on above: Performed By: #### T SH, FT3 #### [facility] [address] [place] [address] Dr. Jessie Cheney VITAMIN D 25 OHon 05-30-2022 VIT D 25-OH 28.7 ng/mL Normal [facility] Comment on above: Performed By: #### B MP #### [facility] [address] [place] [address] Dr. Jessie Cheney VIT D RANGES SEE BELOW Normal [facility] Comment on above: Result Comment: <20 ng/mL Vit D deficient 20 - <30 ng/mL Vit D insufficient 30 - 100 ng/mL Vit D sufficient >100 ng/mL Potential Toxicity Performed By: #### B MP #### [facility] [address] [place] [address] Dr. Jessie Cheney MICROALBUMIN URINEon 022 Albumin, Urine 154.3 ug/mL Normal Not Estab. [facility] Comment on above: Performed By: #### B MP #### [facility] [address] [place] [address] Dr. Jessie Cheney GLYCOHEMOGLOBIN A1Con 2021 ADA RECOMMENDATION SEE BELOW Normal [facility] [place] Comment on above: Result Comment: ADA RECOMMENDED LIMIT 4.0 - 6.0 ADA THERAPEUTIC TARGET < 7.0 ACTION SUGGESTED > 7.0 Performed By: #### A 1C #### [facility] [address] [place] [address] Dr. Jessie Cheney Glucose [Mass/Vol] 209 mg/dL Normal [facility] Comment on above: Performed By: #### A 1C #### [facility] [address] [place] [address] Dr. Jessie Cheney HbA1c (Bld) [Mass fraction] 8.9 % Critically high 4.5-6.2 [facility] Comment on above: Performed By: #### A 1C #### [facility] [address] [place] [address] Dr. Jessie Cheney MG MAMM SCREEN 3D RAMILA CADon 03-15-2022 MG MAMM SCREEN 3D RAMILA CAD Patient: MAAME VELASCO Exam Date: 03/15/2022 : 1945 Gender:F Ordering : DR RAMIN DE PAZ D.O. Admission #: [id number] Family : Order #: [id number] CLICK HERE TO VIEW EXAM RADIOLOGY REPORT PROCEDURE: MAMMOGRAM SCREENING 3D BILATERAL CAD COMPARISON: MG MAMM SCREEN RAMILA W CAD, 08/15/2018. MG MAMM SCREEN RAMILA W CAD, 08/08/2016. INDICATIONS: Screening mammography Calculator Name NCI Breast Cancer Risk Assessment Tool 5 Year Breast Cancer Risk 1.40% Lifetime Breast Cancer Risk 2.80% Personal Breast Cancer No Personal Ovarian Cancer No Treatments None Family Cancers None LOCATION: [facility] BREAST COMPOSITION: Scattered areas fibroglandular density. FINDINGS: DIAGNOSTIC CATEGORY 1--NEGATIVE. NO CHANGE FROM COMPARISON ASSESSMENT. Scattered benign-appearing calcifications are present. Scattered benign-appearing lymph nodes are present. RIGHT BREAST: No significant suspicious finding. LEFT BREAST: No significant suspicious finding. RECOMMENDATIONS: ROUTINE MAMMOGRAM AND CLINICAL EVALUATION IN 12 MONTHS. PLEASE NOTE: A NORMAL MAMMOGRAM DOES NOT EXCLUDE THE POSSIBILITY OF BREAST CANCER. A CLINICALLY SUSPICIOUS PALPABLE LUMP SHOULD BE BIOPSIED. Dictated by: Estuardo Malik MD on 03/16/2022 at 07:42 Approved by: Estuardo Malik MD on 03/16/2022 at 07:44 Normal [facility] PROF CHEM 8 (BAS METB)on Anion gap [Moles/Vol] 12.4 mmol/L Normal [facility] Comment on above: Performed By: #### B MP #### [facility] [address] [place] [address] Dr. Jessie Cheney Calcium [Mass/Vol] 10.4 mg/dL Critically high 8.5-10.1 [facility] Comment on above: Performed By: #### B MP #### [facility] [address] [place] [address] Dr. Jessie Cheney Chloride [Moles/Vol] 97 mmol/L Critically low 98-107 [facility] Comment on above: Performed By: #### B MP #### [facility] [address] [place] [address] [address] Jessie Cheney CO2 [Moles/Vol] 30.8 mmol/L Normal 21.0-32.0 [facility] Comment on above: Performed By: #### B MP #### [facility] [address] [place] [address] Dr. Jessie Cheney Creatinine [Mass/Vol] 1.26 mg/dL Critically high 0.55-1.02 [facility] Comment on above: Performed By: #### B MP #### [facility] [address] [place] [address] [address] Jessie Cheney EGFR-AF MACEDONIAN 50 mL/min/1.73m2 Critically low >=60 [facility] Comment on above: Performed By: #### B MP #### [facility] [address] [place] [address] [address] Jessie Cheney EGFR-NON AF MACEDONIAN 41 mL/min/1.73m2 Critically low >=60 [facility] Comment on above: Performed By: #### B MP #### [facility] [address] [place] [address] [address] Jessie Cheney Glucose [Mass/Vol] 288 mg/dL Critically high 74-106 [facility] Comment on above: Performed By: #### B MP #### [facility] [address] [place] [address] [address] Jessie Cheney Potassium [Moles/Vol] 4.2 mmol/L Normal 3.5-5.1 [facility] Comment on above: Performed By: #### B MP #### [facility] [address] [place] [address] [address] Jessie Cheney Sodium [Moles/Vol] 136 mmol/L Normal 136-145 [facility] Comment on above: Performed By: #### B MP #### [facility] [address] [place] [address] [address] Jessie Cheney Urea nitrogen [Mass/Vol] 21.0 mg/dL Critically high 7.0-18 .0 [facility] Comment on above: Performed By: #### B MP #### [facility] [address] [place] [address] [address] Jessie Cheney Urea nitrogen/Creatinine [Mass ratio] 16.7 mg/mg Normal [facility] Comment on above: Performed By: #### B MP #### [facility] [address] [place] [address] [address] Jessie Cheney XR DEXA BONE DENSITYon 03-15 XR DEXA BONE DENSITY EXAMINATION: XR DEX A BONE DENSITY, 03/15/2022 3:19 PM EDT HISTORY: Menopause present COMPARISON: 2018, 2015, 2010 TECHNIQUE: Dual-energy X-ray absorptiometry (DEXA) bone density study performed for the axial skeleton. FINDINGS: Bone mineral density AP spine L1-L4 measures 1.374 g/sq cm. T score 1.6. WHO classification: Normal Bone mineral density left femoral neck measures 0.692 g/sq cm. T score -2.5. WHO classification: Osteoporosis IMPRESSION: Osteoporosis. High fracture risk Electronically authenticated by: ESTUARDO MALIK Date: 2022-03-15 17:24 Normal [facility] - Hematology and Cell countsOrdered By: Jose Loyola on 02-15-2022 Nucleated RBC/100 WBC (Bld) [Ratio] 0.0 % 0-0.5 [facility] Covid-19 PCR (CVDTBH)on 12-18 SARS-CoV-2 (COVID-19) RNA RADHIKA+probe Ql (Unsp spec) Detected Critically abnormal NOT DETECTED [facility] Comment on above: Result Comment: This test is not yet approved or cleared by the [place] FDA. When there are no FDA-approved or cleared tests available, and other criteria are met, FDA can make tests available under an emergency access mechanism called an Emergency Use Authorization (EUA). The EUA for this test is supported by the [place] of Health and Human Service's declaration that circumstances exist to justify the emergency use of in vitro diagnostics for the detection and/or diagnosis of the virus that causes COVID-19. This EUA will remain in effect for the duration of the COVID-19 declaration justifying emergency of IVDs, unless it is terminated or revoked by the FDA (after which the test may no longer be used). Performed By: #### B MP #### [facility] [address] [place] [address] [address] Jessie Cheney Basophils Auto (Bld) [#/Vol] Ordered By: Jose Loyola on 01-05-2022 Basophils (Bld) [#/Vol] 0.0 10*3/uL 0.0-0.2 [facility] Basophils/100 WBC Auto (Bld) Ordered By: Jose Loyola on 01-05-2022 Basophils/100 WBC (Bld) 0.4 % . F [facility] Blood hemoglobin measurement (mass/volume)Ordered By: Jose Loyola on 01-05-2022 Hemoglobin (Bld) [Mass/Vol] 12.2 g/dL 11.8-15.4 [facility] Blood leukocytes automated c ount (number/volume)Ordered By: Jose Loyola on 01-05-2022 WBC (Bld) [#/Vol] 11.4 10*3/uL 4.5-11.0 [facility] Body fluid albumin measureme nt (mass/volume)Ordered By: Jose Loyola on 01-05-2022 Albumin (Body fld) [Mass/Vol] 4.1 g/dL 3.2-5.5 [facility] Creatinine and Glomerular fi ltration rate.predicted panel (S/P/Bld)Ordered By: Jose Loyola on 01-05-2022 Creatinine [Mass/Vol] 1.23 mg/dL 0.44-1.03 [facility] Eosinophils Auto (Bld) [#/Vo l]Ordered By: Joes Loyola on 01-05-2022 Eosinophils (Bld) [#/Vol] 0.2 10*3/uL 0.0-0.45 [facility] Eosinophils/100 WBC Auto (Bl d)Ordered By: Jose Loyola on 01-05-2022 Eosinophils/100 WBC (Bld) 1.9 % . [facility] Erythrocyte distribution wid th Auto (RBC) [Ratio]Ordered By: Jose Loyola on 01-05-2022 Erythrocyte distribution width (RBC) [Ratio] 13.7 % 11.9-15.3 [facility] Estimated glomerular filtrat ion rate (GFR) non- AmericanOrdered By: Jose Loyola on 01-05-2022 GFR/1.73 sq M.predicted among non-blacks MDRD (S/P/Bld) [Vol rate/Area] 42 mL/Min [facility] Globulin Calc (S) [Mass/Vol] Ordered By: Jose Loyola on 01-05-2022 Globulin (S) [Mass/Vol] 2.3 g/dL F [facility] Hematocrit Auto (Bld) [Volum e fraction]Ordered By: Jose Loyola on 01-05-2022 Hematocrit (Bld) [Volume fraction] 36.6 % 34.0-46.4 [facility] Laboratory - Hematology and Cell countsOrdered By: Jose Loyola on 01-05-2022 Nucleated RBC/100 WBC (Bld) [Ratio] 0.0 % 0-0.5 [facility] Lymphocytes Auto (Bld) [#/Vo l]Ordered By: Jose Loyola on 01-05-2022 Lymphocytes (Bld) [#/Vol] 2.2 10*3/uL 1.00-4.8 [facility] Lymphocytes/100 WBC Auto (Bl d)Ordered By: Jose Loyola on 01-05-2022 Lymphocytes/100 WBC (Bld) 19.4 % . [facility] MCH Auto (RBC) [Entitic mass ]Ordered By: Jose Loyola on 01-05-2022 MCH (RBC) [Entitic mass] 29.7 pg 24.7-34.3 [facility] MCHC Auto (RBC) [Mass/Vol]Or dered By: Jose Loyola on 01-05-2022 MCHC (RBC) [Mass/Vol] 33.3 g/dL 32.0-35.0 [facility] MCV Auto (RBC) [Entitic vol] Ordered By: Jose Loyola on 01-05-2022 MCV (RBC) [Entitic vol] 89.2 fL 80-100 [facility] Monocytes Auto (Bld) [#/Vol] Ordered By: Jose Loyola on 01-05-2022 Monocytes (Bld) [#/Vol] 0.8 10*3/uL 0.0-0.8 [facility] Monocytes/100 WBC Auto (Bld) Ordered By: Jose Loyola on 01-05-2022 Monocytes/100 WBC (Bld) 7.0 % . [facility] Neutrophils Auto (Bld) [#/Vo l]Ordered By: Jose Loyola on 01-05-2022 Neutrophils (Bld) [#/Vol] 8.1 10*3/uL 1.8-7.7 [facility] Neutrophils/100 WBC Auto (Bl d)Ordered By: Jose Loyola on 01-05-2022 Neutrophils/100 WBC (Bld) 71.3 % . [facility] No Panel InformationOrdered By: Jose Loyola on 01-05-2022 25-Hydroxy Vitamin D Total 26.0 ng/mL 30-100 [facility] Comment on above: VITAMIN D STATUS 25( [place])VITAMIN D RANGE (ng/mL) Deficient <20 Insufficient 20 to <30 Sufficient 30 to 100 Reference: Ashia Courtney, Lisa FULLER, et al. Evaluation,treatment, and prevention of vitamin D deficiency; an Endocrine Society clinical practice guideline. JCEM. 2010; 96(7):1911-30. VITAMIN D STATUS 25( [place])VITAMIN D RANGE (ng/mL) Deficient <20 Insufficient 20 to <30Sufficient 30 to 100Reference: Ashia Courtney, Lisa FULLER, et al. Evaluation,treatment, and prevention of vitamin D deficiency; an Endocrine Society clinical practice guideline. JCEM. 2010; 96(7):1911-30. Estimated GFR () 51 mL/Min [facility] Comment on above: GFR estimated refere nce range: According to KDOQI guidelines, <60 ml/min/1.73m2 is sufficient to diagnose a patient with chronic kidney disease. Pharmacy Creatinine Clearance (Chem 33.02 [facility] Platelet mean volume Auto (B ld) [Entitic vol]Ordered By: Jose Loyola on 01-05-2022 Platelet mean volume (Bld) [Entitic vol] 9.5 fL 6.3-10.7 [facility] Platelets Auto (Bld) [#/Vol] Ordered By: Jose Loyola on 01-05-2022 Platelets (Bld) [#/Vol] 258 10*3/uL 150-450 [facility] Protein [Mass/volume] in Ser um or PlasmaOrdered By: Jose Loyola on 01-05-2022 Protein [Mass/Vol] 6.4 g/dL 6.1-7.9 [facility] RBC Auto (Bld) [#/Vol]Ordere d By: Jose Loyola on 01-05-2022 RBC (Bld) [#/Vol] 4.10 10*6/uL 3.60-5.00 [facility] Serum or plasma alanine [place]averde otransferase measurement without P-5'-P (enzymatic activiOrdered By: Jose Loyola on 01-05-2022 ALT No additional P-5'-P [Catalytic activity/Vol] 23 U/L 10-60 [facility] Serum or plasma albumin/glob ulin mass ratioOrdered By: Jose Loyola on 01-05-2022 Albumin/Globulin [Mass ratio] 1.8 {ratio} [facility] Serum or plasma alkaline jesus sphatase measurement (enzymatic activity/volume)Ordered By: Jose Loyola on 01-05-2022 ALP [Catalytic activity/Vol] 105 U/L 32-92 [facility] Serum or plasma aspartate am inotransferase measurement (enzymatic activity/volume)Ordered By: Jose Loyola on 01-05-2022 AST [Catalytic activity/Vol] 17 U/L 10-42 [facility] Serum or plasma calcitriol m easurement (mass/volume)Ordered By: Jose Loyola on 01-05-2022 1,25-dihydroxyvitamin D3 [Mass/Vol] 49.7 pg/mL 24.8-81.5 [facility] Comment on above: Please note refere nce interval change Performed at: [id number] [id number] [employer]: Uziel Granado MD, Phone: [phone] Please note refere nce interval changePerformed at: [facility] [id number] Director: Uziel Granado MD, Phone: [phone] Serum or plasma calcium jimmy urement (mass/volume)Ordered By: Jose Loyola on 01-05-2022 Calcium [Mass/Vol] 10.3 mg/dL 8.2-10.2 [facility] Serum or plasma chloride lacho surement (moles/volume)Ordered By: Jose Loyola on 01-05-2022 Chloride [Moles/Vol] 95 mmol/L 95-114 [facility] Serum or plasma glucose jimmy urement (mass/volume)Ordered By: Jose Loyola on 01-05-2022 Glucose [Mass/Vol] 375 mg/dL 70-100 [facility] Comment on above: ADA recommended refe rence range Random Glucose Reference Range is dependent on time and content of last meal. Glucose of more than 200 mg/dL in a nonstressed, ambulatory subject supports the diagnosis of Diabetes Mellitus. Serum or plasma intact parat hyroid hormone measurement (mass/volume)Ordered By: Jose Loyola on 01-05-2022 Parathyrin.intact [Mass/Vol] 73.7 pg/mL 12-88 [facility] Serum or plasma potassium me asurement (moles/volume)Ordered By: Jose Loyola on 01-05-2022 Potassium [Moles/Vol] 4.6 mmol/L 3.5-5.1 [facility] Serum or plasma sodium measu rement (moles/volume)Ordered By: Jose Loyola on 01-05-2022 Sodium [Moles/Vol] 130 mmol/L 136-146 [facility] Serum or plasma total biliru bin measurement (mass/volume)Ordered By: Jose Loyola on 01-05-2022 Bilirubin [Mass/Vol] 0.5 mg/dL 0.3-1.2 [facility] Serum or plasma total carbon dioxide measurement (moles/volume)Ordered By: Jose Loyola on 01-05-2022 CO2 [Moles/Vol] 24.4 mmol/L 22.0-30.0 [facility] Serum or plasma urea nitroge n measurement (mass/volume)Ordered By: Jose Loyola on 01-05-2022 Urea nitrogen [Mass/Vol] 23 mg/dL 9-23 [facility] CT biopsyOrdered By: Cora Leyva on 09-10-2021 Transferrin [Mass/Vol] 263 mg/dL 180-380 [facility] Ferritin [Mass/volume] in Se rum or PlasmaOrdered By: Cora Gaming on 09-10-2021 Ferritin [Mass/Vol] 83.0 ng/mL 11-306.8 [facility] Iron [Mass/volume] in Serum or PlasmaOrdered By: Cora Amebrly on 09-10-2021 Iron [Mass/Vol] 64 ug/dL 40-150 [facility] Iron binding capacity [Mass/ volume] in Serum or PlasmaOrdered By: Cora Amberly on 09-10-2021 Iron binding capacity [Mass/Vol] 368 ug/dL 255-450 [facility] Iron saturation [Mass Fracti on] in Serum or PlasmaOrdered By: Cora Gaming on 09-10-2021 Iron saturation [Mass fraction] 17.0 % 20-50 [facility] No Panel InformationOrdered By: Cora Amberly on 09-10-2021 Large Platelets Slight [facility] Platelet Estimate Normal Normal [facility] Platelet Morphology Comment N/A [facility] RBC morphologyOrdered By: Arminda Gaming on 09-10-2021 RBC morphology finding Nom (Bld) Normal [facility] PROF CHEM 8 (BAS METB)on Anion gap [Moles/Vol] 11.6 mmol/L Normal [facility] Comment on above: Performed By: #### B MP #### [facility] [address] [address] [address] Jessie Cheney Calcium [Mass/Vol] 10.4 mg/dL Critically high 8.4-10.2 [facility] Comment on above: Performed By: #### B MP #### [facility] [address] [address] [address] Jessie Cheney Chloride [Moles/Vol] 101 mmol/L Normal 98-107 [facility] Comment on above: Performed By: #### B MP #### [facility] [address] [address] [address] Jessie Cheney CO2 [Moles/Vol] 27.8 mmol/L Normal 22.0-30.0 [facility] Comment on above: Performed By: #### B MP #### [facility] [address] [address] [address] Jessie Cheney Creatinine [Mass/Vol] 0.89 mg/dL Normal 0.52-1.04 [facility] Comment on above: Performed By: #### B MP #### [facility] [address] [address] [address] Jessie Cheney EGFR-AF MACEDONIAN >60 Normal >=60 [facility] Comment on above: Performed By: #### B MP #### [facility] [address] [address] [address] Jessie Cheney EGFR-NON AF MACEDONIAN >60 Normal >=60 [facility] Comment on above: Performed By: #### B MP #### [facility] [address] [address] [address] Jessie Cheney Glucose [Mass/Vol] 189 mg/dL Critically high 74-106 [facility] Comment on above: Performed By: #### B MP #### [facility] [address] [address] [address] Jessie Cheney Potassium [Moles/Vol] 4.4 mmol/L Normal 3.4-5.0 [facility] Comment on above: Performed By: #### B MP #### [facility] [address] [address] [address] Jessie Cheney Sodium [Moles/Vol] 136 mmol/L Critically low 137-145 [facility] Comment on above: Performed By: #### B MP #### [facility] [address] [address] [address] Jessie Cheney Urea nitrogen [Mass/Vol] 14.0 mg/dL Normal 7.0-17.0 [facility] Comment on above: Performed By: #### B MP #### [facility] [address] [address] [address] Jessie Cheney Urea nitrogen/Creatinine [Mass ratio] 15.7 mg/mg Normal [facility] Comment on above: Performed By: #### B MP #### [facility] [address] [place] [address] Dr. Jessie Cheney CBC AUTO DIFFon 08-17-2021 BASO # 0.1 103/ul Normal 0.0-0.1 [facility] Comment on above: Performed By: #### T , FT3 #### [facility] [address] [place] [address] Dr. Jessie Cheney Basophils/100 WBC (Bld) 0.6 % Normal 0.2-2.0 [facility] Comment on above: Performed By: #### T , FT3 #### [facility] [address] [place] [address] Dr. Jessie Cheney EO # 0.3 103/ul Normal 0.0-0.7 [facility] Comment on above: Performed By: #### T , FT3 #### [facility] [address] [place] [address] Dr. Jessie Cheney Eosinophils/100 WBC (Bld) 2.6 % Normal 0.9-7.0 [facility] Comment on above: Performed By: #### T , FT3 #### [facility] [address] [place] [address] Dr. Jessie Cheney Erythrocyte distribution width (RBC) [Ratio] 16.7 % Critically high 11.0-15.0 [facility] Comment on above: Performed By: #### T , FT3 #### [facility] [address] [place] [address] Dr. Jessie Cheney Hematocrit (Bld) [Volume fraction] 39.9 % Normal 36.0-48.0 [facility] Comment on above: Performed By: #### T , FT3 #### [facility] [address] [place] [address] Dr. Jessie Cheney Hemoglobin (Bld) [Mass/Vol] 12.9 g/dL Normal 12.0-16.0 [facility] Comment on above: Performed By: #### T , FT3 #### [facility] [address] [place] [address] Dr. Jessie Cheney IG # 0.03 10e3/ul Normal 0.00-0.03 [facility] Comment on above: Performed By: #### T , FT3 #### [facility] [address] [place] [address] Dr. Jessie Cheney IG % 0.3 % Normal 0.0-0.5 [facility] Comment on above: Performed By: #### T SH, FT3 #### [facility] [address] [place] [address] Dr. Jessie Cheney LYMPH # 3.0 103/ul Normal 1.2-3.8 [facility] Comment on above: Performed By: #### T SH, FT3 #### [facility] [address] [place] [address] Dr. Jessie Cheney Lymphocytes/100 WBC (Bld) 30.6 % Normal 20.5-60.0 [facility] Comment on above: Performed By: #### T SH, FT3 #### [facility] [address] [place] [address] Dr. Jessie Cheney MANUAL DIFF REQ NO Normal [facility] Comment on above: Performed By: #### T SH, FT3 #### [facility] [address] [place] [address] Dr. Jessie Cheney MCH (RBC) [Entitic mass] 27.9 pg Normal 26.7-34.0 [facility] Comment on above: Performed By: #### T SH, FT3 #### [facility] [address] [place] [address] Dr. Jessie Cheney MCHC (RBC) [Mass/Vol] 32.3 g/dL Normal 29.9-35.2 [facility] Comment on above: Performed By: #### T SH, FT3 #### [facility] [address] [place] [address] Dr. Jessie Cheney MCV (RBC) [Entitic vol] 86.4 fL Normal 81.0-99.0 [facility] Comment on above: Performed By: #### T SH, FT3 #### [facility] [address] [place] [address] Dr. Jessie Cheney MONO # 0.9 103/ul Critically high 0.3-0.8 [facility] Comment on above: Performed By: #### T SH, FT3 #### [facility] [address] [place] [address] Dr. Jessie Cheney Monocytes/100 WBC (Bld) 8.7 % Normal 1.7-12.0 [facility] Comment on above: Performed By: #### T KIRA, FT3 #### [facility] [address] [place] [address] Dr. Jessie Cheney NEUT # 5.6 103/ul Normal 1.4-6.5 [facility] Comment on above: Performed By: #### T KIRA, FT3 #### [facility] [address] [place] [address] Dr. Jessie Cheney Neutrophils/100 WBC (Bld) 57.2 % Normal 43.0-75.0 [facility] Comment on above: Performed By: #### T KIRA, FT3 #### [facility] [address] [place] [address] Dr. Jessie Cheney Platelet mean volume (Bld) [Entitic vol] 9.9 fL Normal 9.5-13.5 [facility] Comment on above: Performed By: #### Nia MALONE, FT3 #### [facility] [address] [place] [address] Dr. Jessie Cheney PLT 221 103/ul Normal 150-450 [facility] Comment on above: Performed By: #### T KIRA, FT3 #### [facility] [address] [place] [address] Dr. Jessie Cheney RBC 4.62 106/ul Normal 4.20-5.40 [facility] Comment on above: Performed By: #### T KIRA, FT3 #### [facility] [address] [place] [address] Dr. Jessie Cheney WBC 9.8 103/ul Normal 4.0-11.0 [facility] Comment on above: Performed By: #### T KIRA, FT3 #### [facility] [address] [place] [address] Dr. Jessie Cheney PROF 14(COMP METB)on 022 Albumin [Mass/Vol] 4.0 g/dL Normal 3.5-5.0 [facility] Comment on above: Performed By: #### C MP #### [facility] [address] [place] [address] Dr. Jessie Cheney Albumin/Globulin [Mass ratio] 1.2 {ratio} Normal [facility] Comment on above: Performed By: #### C MP #### [facility] [address] [place] [address] Dr. Jessie Cheney ALP [Catalytic activity/Vol] 153 U/L Critically high 38-126 [facility] Comment on above: Performed By: #### C MP #### [facility] [address] [address] [address] Jessie Cheney ALT [Catalytic activity/Vol] 30 U/L Normal 9-52 [facility] Comment on above: Performed By: #### C MP #### [facility] [address] [place] [address] Dr. Jessie Cheney Anion gap [Moles/Vol] 10.7 mmol/L Normal [facility] Comment on above: Performed By: #### C MP #### [facility] [address] [place] [address] Dr. Jessie Cheney AST [Catalytic activity/Vol] 12 U/L Critically low 14-36 [facility] Comment on above: Performed By: #### C MP #### [facility] [address] [place] [address] Dr. Jessie Cheney Bilirubin [Mass/Vol] 0.3 mg/dL Normal 0.2-1.3 [facility] Comment on above: Performed By: #### C MP #### [facility] [address] [place] [address] Dr. Jessie Cheney Calcium [Mass/Vol] 10.7 mg/dL Critically high 8.4-10.2 [facility] Comment on above: Performed By: #### C MP #### [facility] [address] [place] [address] Dr. Jessie Cheney Chloride [Moles/Vol] 100 mmol/L Normal 98-107 [facility] Comment on above: Performed By: #### C MP #### [facility] [address] [place] [address] Dr. Jessie Cheney CO2 [Moles/Vol] 27.5 mmol/L Normal 22.0-30.0 [facility] Comment on above: Performed By: #### C MP #### [facility] [address] [place] [address] Dr. Jessie Cheney Creatinine [Mass/Vol] 1.07 mg/dL Critically high 0.52-1.04 [facility] Comment on above: Performed By: #### C MP #### [facility] [address] [address] [address] Jessie Cheney EGFR-AF MACEDONIAN >60 Normal >=60 [facility] Comment on above: Performed By: #### C MP #### [facility] [address] [address] [address] Jessie Cheney EGFR-NON AF MACEDONIAN 50 mL/min/1.73m2 Critically low >=60 [facility] Comment on above: Performed By: #### C MP #### [facility] [address] [place] [address] Dr. Jessie Cheney Globulin (S) [Mass/Vol] 3.4 g/dL Normal [facility] Comment on above: Performed By: #### C MP #### [facility] [address] [place] [address] Dr. Jessie Cheney Glucose [Mass/Vol] 217 mg/dL Critically high 74-106 [facility] Comment on above: Performed By: #### C MP #### [facility] [address] [place] [address] Dr. Jessie Cheney Potassium [Moles/Vol] 4.2 mmol/L Normal 3.4-5.0 [facility] Comment on above: Performed By: #### C MP #### [facility] [address] [place] [address] Dr. Jessie Cheney Protein [Mass/Vol] 7.4 g/dL Normal 6.1-8.2 [facility] Comment on above: Performed By: #### C MP #### [facility] [address] [place] [address] Dr. Jessie Cheney Sodium [Moles/Vol] 134 mmol/L Critically low 137-145 [facility] Comment on above: Performed By: #### C MP #### [facility] [address] [address] [address] Jessie Cheney Urea nitrogen [Mass/Vol] 20.0 mg/dL Critically high 7.0-17 .0 [facility] Comment on above: Performed By: #### C MP #### [facility] [id number] Jessie Cheney Urea nitrogen/Creatinine [Mass ratio] 18.7 mg/mg Normal [facility] Comment on above: Performed By: #### C MP #### [facility] [id number] Jessie Cheney XR CHEST 1 Von 08-17-2021 XR CHEST 1 V EXAMINATION: XR CHEST 1 V, , 08/16/2021 10:44 PM EST INDICATION: CHEST PAIN, UNSPECIFIED HISTORY: Ordering Provider Reason for Exam: Technologist Note: Additional: COMPARISON: None TECHNIQUE: Chest x-ray: One view. FINDINGS: No pneumothorax, pleural effusion or focal airspace consolidation. Mild left lower lung are scar/atelectasis is seen. Heart is normal in size. Bony thorax is unremarkable. IMPRESSION: Mild left lower lung scar/atelectasis. Electronically authenticated by: SENDY MEI Date: 2021-08-16 23:27 Normal [facility] GLYCOHEMOGLOBIN A1Con 2021 ADA RECOMMENDATION ADA THERAPEUTIC TARGET 6.0 - 7.0 ACTION SUGGESTED > 7.0 Normal [facility] Comment on above: Performed By: #### B MP #### [facility] [address] [address] [address] Jessie Cheney Glucose [Mass/Vol] 163 mg/dL Normal [facility] Comment on above: Performed By: #### B MP #### [facility] [id number] Jessie Cheney HbA1c (Bld) [Mass fraction] 7.3 % Critically high <=6.0 [facility] Comment on above: Performed By: #### B MP #### [facility] [address] [address] [address] Jessie Cheney Blood anisocytosis detection Ordered By: Jose Loyola on 07-09-2021 Anisocytosis Ql (Bld) Moderate [facility] Hypochromia detectionOrdered By: Jose Loyola on 07-09-2021 Hypochromia Ql (Bld) Slight [facility] No Panel InformationOrdered By: Jose Loyola on 07-09-2021 Poikilocytosis [facility] Ovalocyte detectionOrdered B y: Jose Loyola on 07-09-2021 Ovalocytes LM Ql (Bld) Slight [facility] Blood polychromasia detectio n by light microscopyOrdered By: Jose Loyola on 06-28-2021 Polychromasia LM Ql (Bld) [facility] No Panel InformationOrdered By: Jose Loyola on 06-28-2021 Rouleau [facility] Schistocytes Slight [facility] PRBC LEUKOREDUCEDon 06-23-19 ABO and Rh group Nom (Bld) Cross Match Result Compatible Unit Blood Type O Pos Unit Number [id number] Status Information Transfused Product ID Red Blood Cells Product Code [id number] Cross Match Result Compatible Unit Blood Type O Pos Unit Number [id number] Status Information Transfused Product ID Red Blood Cells Product Code [id number] Normal [facility] Comment on above: Performed By: #### P RBC #### [facility] [address] [place] [address] Dr. Jessie Cheney PRBC LEUKOREDUCED Cross Match Result Compatible Unit Blood Type O Pos Unit Number [id number] Status Information Transfused Product ID Red Blood Cells Product Code [id number] Normal [facility] Comment on above: Performed By: #### C BC #### [facility] [address] [place] [address] Dr. Jessie Cheney CBC AUTO DIFFon 06-21-2021 BASO # 0.0 103/ul Normal 0.0-0.1 [facility] Comment on above: Performed By: #### C BC #### [facility] [address] [place] [address] Dr. Jessie Cheney Basophils/100 WBC (Bld) 0.3 % Normal 0.2-2.0 [facility] Comment on above: Performed By: #### C BC #### [facility] [address] [place] [address] Dr. Jessie Cheney EO # 0.2 103/ul Normal 0.0-0.7 [facility] Comment on above: Performed By: #### C BC #### [facility] [address] [place] [address] Dr. Jessie Cheney Eosinophils/100 WBC (Bld) 1.3 % Normal 0.9-7.0 [facility] Comment on above: Performed By: #### C BC #### [facility] [address] [place] [address] Dr. Jessie Cheney Erythrocyte distribution width (RBC) [Ratio] 25.4 % Critically high 11.0-15.0 [facility] Comment on above: Result Comment: 4+ A NISOCYTOSIS Performed By: #### C BC #### [facility] [address] [place] [address] Dr. Jessie Cheney Hematocrit (Bld) [Volume fraction] 33.4 % Critically low 36.0-48.0 [facility] Comment on above: Performed By: #### C BC #### [facility] [address] [place] [address] Dr. Jessie Cheney Hemoglobin (Bld) [Mass/Vol] 10.2 g/dL Critically low 12.0-16.0 [facility] Comment on above: Performed By: #### C BC #### [facility] [address] [place] [address] Dr. Jessie Cheney IG # 0.14 10e3/ul Critically high 0.00-0.03 [facility] Comment on above: Performed By: #### C BC #### [facility] [address] [place] [address] Dr. Jessie Cheney IG % 1.1 % Critically high 0.0-0.5 [facility] Comment on above: Performed By: #### C BC #### [facility] [address] [place] [address] Dr. Jessie Cheney LYMPH # 2.0 103/ul Normal 1.2-3.8 [facility] Comment on above: Performed By: #### C BC #### [facility] [address] [address] [address] Jessie Cheney Lymphocytes/100 WBC (Bld) 15.2 % Critically low 20.5-60.0 [facility] Comment on above: Performed By: #### C BC #### [facility] [address] [place] [address] Dr. Jessie Cheney MANUAL DIFF REQ NO Normal [facility] Comment on above: Performed By: #### C BC #### [facility] [address] [place] [address] Dr. Jessie Cheney MCH (RBC) [Entitic mass] 26.4 pg Critically low 26.7-34 .0 [facility] Comment on above: Performed By: #### C BC #### [facility] [address] [place] [address] Dr. Jessie Cheney MCHC (RBC) [Mass/Vol] 30.5 g/dL Normal 29.9-35.2 [facility] Comment on above: Performed By: #### C BC #### [facility] [address] [place] [address] Dr. Jessie Cheney MCV (RBC) [Entitic vol] 86.5 fL Normal 81.0-99.0 [facility] Comment on above: Performed By: #### C BC #### [facility] [address] [place] [address] Dr. Jessie Cheney MONO # 0.9 103/ul Critically high 0.3-0.8 [facility] Comment on above: Performed By: #### C BC #### [facility] [address] [place] [address] Dr. Jessie Cheney Monocytes/100 WBC (Bld) 6.9 % Normal 1.7-12.0 [facility] Comment on above: Performed By: #### C BC #### [facility] [address] [place] [address] Dr. Jessie Cheney NEUT # 9.8 103/ul Critically high 1.4-6.5 [facility] Comment on above: Performed By: #### C BC #### [facility] [address] [place] [address] Dr. Jessie Cheney Neutrophils/100 WBC (Bld) 75.2 % Critically high 43.0-75.0 [facility] Comment on above: Performed By: #### C BC #### [facility] [address] [place] [address] Dr. Jessei Cheney Platelet mean volume (Bld) [Entitic vol] 10.2 fL Normal 9.5-13.5 [facility] Comment on above: Performed By: #### C BC #### [facility] [address] [place] [address] Dr. Jessie Cheney PLT 342 103/ul Normal 150-450 [facility] Comment on above: Performed By: #### C BC #### [facility] [address] [place] [address] Dr. Jessie Cheney RBC 3.86 106/ul Critically low 4.20-5.40 [facility] Comment on above: Result Comment: JAN CELLS 2+; OVALOCYTES 1+; TEAR DROP 1+ Performed By: #### C BC #### [facility] [address] [place] [address] Dr. Jessie Cheney WBC 13.0 103/ul Critically high 4.0-11.[address] [facility] Comment on above: Performed By: #### C BC #### [facility] [address] [place] [address] Dr. Jessie Cheney CBC AUTO DIFFon 06-16-2021 BASO # 0.0 103/ul Normal 0.0-0.1 [facility] Comment on above: Performed By: #### T KIRA, FT3 #### [facility] [address] [place] [address] Dr. Jessie Cheney Basophils/100 WBC (Bld) 0.2 % Normal 0.2-2.0 [facility] Comment on above: Performed By: #### T KIRA, FT3 #### [facility] [address] [place] [address] Dr. Jessie Cheney EO # 0.0 103/ul Normal 0.0-0.7 [facility] Comment on above: Performed By: #### T SH, FT3 #### [facility] [address] [place] [address] Dr. Jessie Cheney Eosinophils/100 WBC (Bld) 0.0 % Critically low 0.9-7.0 [facility] Comment on above: Performed By: #### T SH, FT3 #### [facility] [address] [place] [address] Dr. Jessie Cheney Erythrocyte distribution width (RBC) [Ratio] 22.0 % Critically high 11.0-15.0 [facility] Comment on above: Performed By: #### T SH, FT3 #### [facility] [address] [place] [address] Dr. Jessie Cheney Hematocrit (Bld) [Volume fraction] 25.1 % Critically low 36.0-48.0 [facility] Comment on above: Performed By: #### T SH, FT3 #### [facility] [address] [place] [address] Dr. Jessie Cheney Hemoglobin (Bld) [Mass/Vol] 7.7 g/dL Critically low 12.0-16.0 [facility] Comment on above: Performed By: #### T SH, FT3 #### [facility] [address] [place] [address] Dr. Jessie Cheney IG # 0.28 10e3/ul Critically high 0.00-0.03 [facility] Comment on above: Performed By: #### T SH, FT3 #### [facility] [address] [place] [address] Dr. Jessie Cheney IG % 1.9 % Critically high 0.0-0.5 [facility] Comment on above: Performed By: #### T SH, FT3 #### [facility] [address] [place] [address] Dr. Jessie Cheney LYMPH # 1.7 103/ul Normal 1.2-3.8 [facility] Comment on above: Performed By: #### T SH, FT3 #### [facility] [address] [place] [address] Dr. Jessie Cheney Lymphocytes/100 WBC (Bld) 11.2 % Critically low 20.5-60.0 [facility] Comment on above: Performed By: #### T SH, FT3 #### [facility] [address] [place] [address] Dr. Jessie Cheney MANUAL DIFF REQ NO Normal [facility] Comment on above: Performed By: #### T SH, FT3 #### [facility] [address] [place] [address] Dr. Jessie Cheney MCH (RBC) [Entitic mass] 24.9 pg Critically low 26.7-34 .0 [facility] Comment on above: Performed By: #### T SH, FT3 #### [facility] [address] [place] [address] Dr. Jessie Cheney MCHC (RBC) [Mass/Vol] 30.7 g/dL Normal 29.9-35.2 [facility] Comment on above: Performed By: #### T SH, FT3 #### [facility] [address] [place] [address] Dr. Jessie Cheney MCV (RBC) [Entitic vol] 81.2 fL Normal 81.0-99.0 [facility] Comment on above: Performed By: #### T SH, FT3 #### [facility] [address] [place] [address] Dr. Jessie Cheney MONO # 0.8 103/ul Normal 0.3-0.8 [facility] Comment on above: Performed By: #### T SH, FT3 #### [facility] [address] [place] [address] Dr. Jessie Cheney Monocytes/100 WBC (Bld) 5.4 % Normal 1.7-12.0 [facility] Comment on above: Performed By: #### T SH, FT3 #### [facility] [address] [place] [address] Dr. Jessie Cheney NEUT # 12.0 103/ul Critically high 1.4-6.[address] [facility] Comment on above: Performed By: #### T KIRA, FT3 #### [facility] [address] [place] [address] Dr. Jessie Cheney Neutrophils/100 WBC (Bld) 81.3 % Critically high 43.0-75.0 [facility] Comment on above: Performed By: #### T KIRA, FT3 #### [facility] [address] [place] [address] Dr. Jessie Cheney Platelet mean volume (Bld) [Entitic vol] 11.0 fL Normal 9.5-13.5 [facility] Comment on above: Performed By: #### T KIRA, FT3 #### [facility] [address] [place] [address] Dr. Jessie Cheney PLT 307 103/ul Normal 150-450 [facility] Comment on above: Performed By: #### T KIRA, FT3 #### [facility] [address] [place] [address] Dr. Jessie Cheney RBC 3.09 106/ul Critically low 4.20-5.40 [facility] Comment on above: Performed By: #### T KIRA, FT3 #### [facility] [address] [place] [address] Dr. Jessie Cheney WBC 14.8 103/ul Critically high 4.0-11.0 [facility] Comment on above: Performed By: #### T KIRA, FT3 #### [facility] [address] [place] [address] Dr. Jessie Cheney PROF CHEM 8 (BAS METB)on Anion gap [Moles/Vol] 14.2 mmol/L Normal [facility] Comment on above: Performed By: #### B MP #### [facility] [address] [place] [address] Dr. Jessie Cheney Calcium [Mass/Vol] 9.6 mg/dL Normal 8.4-10.2 [facility] Comment on above: Performed By: #### B MP #### [facility] [address] [address] [address] Jessie Cheney Chloride [Moles/Vol] 103 mmol/L Normal 98-107 [facility] Comment on above: Performed By: #### B MP #### [facility] [address] [address] [address] Jessie Cheney CO2 [Moles/Vol] 23.0 mmol/L Normal 22.0-30.0 [facility] Comment on above: Performed By: #### B MP #### [facility] [address] [place] [address] Dr. Jessie Cheney Creatinine [Mass/Vol] 0.81 mg/dL Normal 0.52-1.04 [facility] Comment on above: Performed By: #### B MP #### [facility] [address] [place] [address] Dr. Jessie Cheney EGFR-AF MACEDONIAN >60 Normal >=[address] [facility] Comment on above: Performed By: #### B MP #### [facility] [address] [place] [address] Dr. Jessie Cheney EGFR-NON AF MACEDONIAN >60 Normal >=60 [facility] Comment on above: Performed By: #### B MP #### [facility] [address] [place] [address] Dr. Jessie Cheney Glucose [Mass/Vol] 230 mg/dL Critically high 74-106 [facility] Comment on above: Performed By: #### B MP #### [facility] [address] [place] [address] Dr. Jessie Cheney Potassium [Moles/Vol] 4.2 mmol/L Normal 3.4-5.0 [facility] Comment on above: Performed By: #### B MP #### [facility] [address] [place] [address] Dr. Jessie Cheney Sodium [Moles/Vol] 136 mmol/L Critically low 137-145 [facility] Comment on above: Performed By: #### B MP #### [facility] [address] [place] [address] Dr. Jessie Cheney Urea nitrogen [Mass/Vol] 16.0 mg/dL Normal 7.0-17.0 [facility] Comment on above: Performed By: #### B MP #### [facility] [address] [place] [address] Dr. Jessie Cheney Urea nitrogen/Creatinine [Mass ratio] 19.8 mg/mg Normal [facility] Comment on above: Performed By: #### B MP #### [facility] [address] [place] [address] Dr. Jessie Cheney CBC AUTO DIFFon 06-15-2021 BASO # 0.1 103/ul Normal 0.0-0.1 [facility] Comment on above: Performed By: #### C BC #### [facility] [address] [place] [address] Dr. Jessie Cheney Basophils/100 WBC (Bld) 0.6 % Normal 0.2-2.0 [facility] Comment on above: Performed By: #### C BC #### [facility] [address] [place] [address] Dr. Jessie Cheney EO # 0.2 103/ul Normal 0.0-0.7 [facility] Comment on above: Performed By: #### C BC #### [facility] [address] [place] [address] Dr. Jessie Cheney Eosinophils/100 WBC (Bld) 2.1 % Normal 0.9-7.0 [facility] Comment on above: Performed By: #### C BC #### [facility] [address] [place] [address] Dr. Jessie Cheney Erythrocyte distribution width (RBC) [Ratio] 21.4 % Critically high 11.0-15.0 [facility] Comment on above: Performed By: #### C BC #### [facility] [address] [place] [address] Dr. Jesise Cheney Hematocrit (Bld) [Volume fraction] 25.4 % Critically low 36.0-48.0 [facility] Comment on above: Performed By: #### C BC #### [facility] [address] [place] [address] Dr. Jessie Cheney Hemoglobin (Bld) [Mass/Vol] 7.7 g/dL Critically low 12.0-16.0 [facility] Comment on above: Performed By: #### C BC #### [facility] [address] [place] [address] Dr. Jessie Cheney IG # 0.10 10e3/ul Critically high 0.00-0.03 [facility] Comment on above: Performed By: #### C BC #### [facility] [address] [place] [address] Dr. Jessie Cheney IG % 0.9 % Critically high 0.0-0.5 [facility] Comment on above: Performed By: #### C BC #### [facility] [address] [place] [address] Dr. Jessie Cheney LYMPH # 3.0 103/ul Normal 1.2-3.8 [facility] Comment on above: Performed By: #### C BC #### [facility] [address] [place] [address] Dr. Jessie Cheney Lymphocytes/100 WBC (Bld) 28.1 % Normal 20.5-60.0 [facility] Comment on above: Performed By: #### C BC #### [facility] [address] [place] [address] Dr. Jessie Cheney MANUAL DIFF REQ NO Normal [facility] Comment on above: Performed By: #### C BC #### [facility] [address] [place] [address] Dr. Jessie Cheney MCH (RBC) [Entitic mass] 24.8 pg Critically low 26.7-34 .0 [facility] Comment on above: Performed By: #### C BC #### [facility] [address] [place] [address] Dr. Jessie Cheney MCHC (RBC) [Mass/Vol] 30.3 g/dL Normal 29.9-35.2 [facility] Comment on above: Performed By: #### C BC #### [facility] [address] [place] [address] Dr. Jessie Cheney MCV (RBC) [Entitic vol] 81.9 fL Normal 81.0-99.0 [facility] Comment on above: Performed By: #### C BC #### [facility] [address] [address] [address] Jessie Cheney MONO # 1.0 103/ul Critically high 0.3-0.8 [facility] Comment on above: Performed By: #### C BC #### [facility] [address] [address] [address] Jessie Cheney Monocytes/100 WBC (Bld) 9.2 % Normal 1.7-12.0 [facility] Comment on above: Performed By: #### C BC #### [facility] [address] [place] [address] Dr. Jessie Cheney NEUT # 6.3 103/ul Normal 1.4-6.5 [facility] Comment on above: Performed By: #### C BC #### [facility] [address] [place] [address] Dr. Jessie Cheney Neutrophils/100 WBC (Bld) 59.1 % Normal 43.0-75.0 [facility] Comment on above: Performed By: #### C BC #### [facility] [address] [place] [address] Dr. Jessie Cheney Platelet mean volume (Bld) [Entitic vol] 10.7 fL Normal 9.5-13.5 [facility] Comment on above: Performed By: #### C BC #### [facility] [address] [place] [address] Dr. Jessie Cheney PLT 261 103/ul Normal 150-450 [facility] Comment on above: Performed By: #### C BC #### [facility] [address] [place], [place] [id number] Dr. Jessie Cheney RBC 3.10 106/ul Critically low 4.20-5.40 [facility] Comment on above: Performed By: #### C BC #### [facility] [address] [place] [address] Dr. Jessie Cheney WBC 10.7 103/ul Normal 4.0-11.0 [facility] Comment on above: Performed By: #### C BC #### [facility] [address] [place] [address] Dr. Jessie Cheney DIRECT COOMBSon 06-15-2021 DIRECT DARINEL Negative Normal [facility] Comment on above: Performed By: #### C BC #### [facility] [address] [place] [address] Dr. Jessie Cheney HAPTOGLOBINon 06-15-2021 Haptoglobin 199 mg/dL Normal 42-346 [facility] Comment on above: Performed By: #### B MP #### [facility] [address] [place] [address] Dr. Jessie Cheney POINT OF CARE GLUCOSEon 05-20 Glucose [Mass/Vol] 117 mg/dL Critically high 74-106 [facility] Comment on above: Performed By: #### B MP #### [facility] [address] [place] [address] Dr. Jessie Cheney PROF CHEM 8 (BAS METB)on Anion gap [Moles/Vol] 10.4 mmol/L Normal [facility] Comment on above: Performed By: #### B MP #### [facility] [address] [place] [address] Dr. Jessie Cheney Calcium [Mass/Vol] 9.7 mg/dL Normal 8.4-10.2 [facility] Comment on above: Performed By: #### B MP #### [facility] [address] [place] [address] Dr. Jessie Cheney Chloride [Moles/Vol] 106 mmol/L Normal 98-107 [facility] Comment on above: Performed By: #### B MP #### [facility] [address] [place] [address] Dr. Jessie Cheney CO2 [Moles/Vol] 26.1 mmol/L Normal 22.0-30.0 [facility] Comment on above: Performed By: #### B MP #### [facility] [address] [place] [address] Dr. Jessie Cheney Creatinine [Mass/Vol] 0.75 mg/dL Normal 0.52-1.04 [facility] Comment on above: Performed By: #### B MP #### [facility] [address] [address] [address] Jessie Cheney EGFR-AF MACEDONIAN >60 Normal >=60 [facility] Comment on above: Performed By: #### B MP #### [facility] [address] [address] [address] Jessie Cheney EGFR-NON AF MACEDONIAN >60 Normal >=60 [facility] Comment on above: Performed By: #### B MP #### [facility] [address] [address] [address] Jessie Cheney Glucose [Mass/Vol] 108 mg/dL Critically high 74-106 [facility] Comment on above: Performed By: #### B MP #### [facility] [address] [address] [address] Jessie Cheney Potassium [Moles/Vol] 3.5 mmol/L Normal 3.4-5.0 [facility] Comment on above: Performed By: #### B MP #### [facility] [address] [address] [address] Jessie Cheney Sodium [Moles/Vol] 139 mmol/L Normal 137-145 [facility] Comment on above: Performed By: #### B MP #### [facility] [address] [address] [address] Jessie Cheney Urea nitrogen [Mass/Vol] 14.0 mg/dL Normal 7.0-17.0 [facility] Comment on above: Performed By: #### B MP #### [facility] [address] [address] [address] Jessie Cheney Urea nitrogen/Creatinine [Mass ratio] 18.7 mg/mg Normal [facility] Comment on above: Performed By: #### B MP #### [facility] [address] [address] [address] Jessie Cheney CBC AUTO DIFFon 06-14-2021 BASO # 0.1 103/ul Normal 0.0-0.1 [facility] Comment on above: Performed By: #### B MP #### [facility] [address] [address] [address] Jessie Cheney Basophils/100 WBC (Bld) 0.5 % Normal 0.2-2.0 [facility] Comment on above: Performed By: #### B MP #### [facility] [address] [address] [address] Jessie Cheney EO # 0.1 103/ul Normal 0.0-0.7 [facility] Comment on above: Performed By: #### B MP #### [facility] [address] [address] [address] Jessie Cheney Eosinophils/100 WBC (Bld) 1.1 % Normal 0.9-7.0 [facility] Comment on above: Performed By: #### B MP #### [facility] [address] [address] [address] Jessie Cheney Erythrocyte distribution width (RBC) [Ratio] 20.6 % Critically high 11.0-15.0 [facility] Comment on above: Performed By: #### B MP #### [facility] [address] [address] [address] Jessie Cheney Hematocrit (Bld) [Volume fraction] 25.2 % Critically low 36.0-48.0 [facility] Comment on above: Performed By: #### B MP #### [facility] [address] [address] [address] Jessie Cheney Hemoglobin (Bld) [Mass/Vol] 7.8 g/dL Critically low 12.0-16.0 [facility] Comment on above: Performed By: #### B MP #### [facility] [address] [address] [address] Jessie Cheney IG # 0.10 10e3/ul Critically high 0.00-0.03 [facility] Comment on above: Performed By: #### B MP #### [facility] [address] [address] [address] Jessie Cheney IG % 0.8 % Critically high 0.0-0.5 [facility] Comment on above: Performed By: #### B MP #### [facility] [address] [address] [address] Jessie Cheney LYMPH # 2.9 103/ul Normal 1.2-3.8 [facility] Comment on above: Performed By: #### B MP #### [facility] [address] [address] [address] Jessie Cheney Lymphocytes/100 WBC (Bld) 24.0 % Normal 20.5-60.0 [facility] Comment on above: Performed By: #### B MP #### [facility] [address] [address] [address] Jessie Cheney MANUAL DIFF REQ NO Normal [facility] Comment on above: Performed By: #### B MP #### [facility] [address] [place] [address] Dr. Jessie Cheney MCH (RBC) [Entitic mass] 24.9 pg Critically low 26.7-34 .0 [facility] Comment on above: Performed By: #### B MP #### [facility] [address] [place] [address] Dr. Jessie Cheney MCHC (RBC) [Mass/Vol] 31.0 g/dL Normal 29.9-35.2 [facility] Comment on above: Performed By: #### B MP #### [facility] [address] [address] [address] Jessie Cheney MCV (RBC) [Entitic vol] 80.5 fL Critically low 81.0-99. 0 [facility] Comment on above: Performed By: #### B MP #### [facility] [address] [address] [address] Jessie Cheney MONO # 1.1 103/ul Critically high 0.3-0.8 [facility] Comment on above: Performed By: #### B MP #### [facility] [address] [address] [address] Jessie Cheney Monocytes/100 WBC (Bld) 8.9 % Normal 1.7-12.0 [facility] Comment on above: Performed By: #### B MP #### [facility] [address] [address] [address] Jessie Cheney NEUT # 7.8 103/ul Critically high 1.4-6.5 [facility] Comment on above: Performed By: #### B MP #### [facility] [address] [address] [address] Jessie Cheney Neutrophils/100 WBC (Bld) 64.7 % Normal 43.0-75.0 [facility] Comment on above: Performed By: #### B MP #### [facility] [address] [address] [address] Jessie Cheney Platelet mean volume (Bld) [Entitic vol] 10.7 fL Normal 9.5-13.5 [facility] Comment on above: Performed By: #### B MP #### [facility] [address] [address] [address] Jessie Cheney PLT 248 103/ul Normal 150-450 [facility] Comment on above: Performed By: #### B MP #### [facility] [address] [address] [address] Jessie Cheney RBC 3.13 106/ul Critically low 4.20-5.40 [facility] Comment on above: Performed By: #### B MP #### [facility] [address] [address] [address] Jessie Cheney WBC 12.1 103/ul Critically high 4.0-11.0 [facility] Comment on above: Performed By: #### B MP #### [facility] [address] [address] [address] Jessie Cheney DIRECT COOMBSon 06-14-2021 DIRECT DARINEL Negative Normal [facility] Comment on above: Performed By: #### C BC #### [facility] [address] [address] [address] Jessie Cheney FERRITINon 06-14-2021 Ferritin [Mass/Vol] 117.0 ng/mL Normal 11.1-264.0 [facility] Comment on above: Performed By: #### T SH, FT3 #### [facility] [address] [place] [address] Dr. Jessie Cheney H PYLORI ANTIBODYon 06-14-20 21 H PYLORI Negative Normal NEGATIVE [facility] Comment on above: Performed By: #### H PYL #### [facility] [address] [place] [address] Dr. Jessie Cheney NM GI BLEEDon 06-14-2021 NM GI BLEED EXAMINATION: NM GI BLEED HISTORY: Acute upper gastrointestinal hemorrhage COMPARISON: No relevant comparison available. TECHNIQUE: After obtaining the patient's consent, 12 mg pyrophosphate was injected intravenously, followed by intravenous injection of 23.5 mCi Tc-99m sodium pertechnetate for in-vivo labeling of red blood cells. Images then obtained. FINDINGS: ABNORMAL FOCI: Negative. OTHER: Negative. IMPRESSION: No evidence of active GI bleeding Electronically authenticated by: ESTUARDO MALIK Date: 2021-06-14 11:06 Normal [facility] POINT OF CARE GLUCOSEon 05-20 Glucose [Mass/Vol] 290 mg/dL Critically high 74-106 [facility] Comment on above: Performed By: #### B MP #### [facility] [address] [place] [address] Dr. Jessie Cheney RETICULOCYTEon 06-14-2021 RETIC 2.96 % Normal 0.60-3.10 [facility] Comment on above: Performed By: #### B MP #### [facility] [address] [place] [address] Dr. Jessie Cheney VIT B12 AND FOLATEon 021 Cobalamin (Vitamin B12) [Mass/Vol] 364.0 pg/mL Normal 239.0-931.0 [facility] Comment on above: Performed By: #### B MP #### [facility] [address] [place] [address] Dr. Jessie Cheney FOLATE 15.10 ng/mL Normal >=2.76 [facility] Comment on above: Performed By: #### B MP #### [facility] [address] [place] [address] Dr. Jessie Cheney CBC AUTO DIFFon 06-13-2021 BASO # 0.0 103/ul Normal 0.0-0.1 [facility] Comment on above: Performed By: #### C BC #### [facility] [address] [place] [address] Dr. Jessie Cheney Basophils/100 WBC (Bld) 0.2 % Normal 0.2-2.0 [facility] Comment on above: Performed By: #### C BC #### [facility] [address] [place] [address] Dr. Jessie Cheney EO # 0.0 103/ul Normal 0.0-0.7 [facility] Comment on above: Performed By: #### C BC #### [facility] [address] [place] [address] Dr. Jessie Cheney Eosinophils/100 WBC (Bld) 0.2 % Critically low 0.9-7.0 [facility] Comment on above: Performed By: #### C BC #### [facility] [address] [place] [address] Dr. Jessie Cheney Erythrocyte distribution width (RBC) [Ratio] 21.6 % Critically high 11.0-15.0 [facility] Comment on above: Performed By: #### C BC #### [facility] [address] [place] [address] Dr. Jessie Cheney Hematocrit (Bld) [Volume fraction] 19.4 % Critically low 36.0-48.0 [facility] Comment on above: Result Comment: test repeated critical value verified Performed By: #### C BC #### [facility] [address] [place] [address] Dr. Jessie Cheney Hemoglobin (Bld) [Mass/Vol] 6.1 g/dL Critically low 12.0-16.0 [facility] Comment on above: Result Comment: test repeated critical value verified Performed By: #### C BC #### [facility] [address] [place] [address] Dr. Jessie Cheney IG # 0.12 10e3/ul Critically high 0.00-0.03 [facility] Comment on above: Performed By: #### C BC #### [facility] [address] [address] [address] Jessie Cheney IG % 0.9 % Critically high 0.0-0.5 [facility] Comment on above: Performed By: #### C BC #### [facility] [address] [address] [address] Jessie Cheney LYMPH # 3.4 103/ul Normal 1.2-3.8 [facility] Comment on above: Performed By: #### C BC #### [facility] [address] [place] [address] Dr. Jessie Cheney Lymphocytes/100 WBC (Bld) 24.5 % Normal 20.5-60.0 [facility] Comment on above: Performed By: #### C BC #### [facility] [address] [place] [address] Dr. Jessie Cheney MANUAL DIFF REQ NO Normal [facility] Comment on above: Performed By: #### C BC #### [facility] [address] [place] [address] Dr. Jessie Cheney MCH (RBC) [Entitic mass] 24.0 pg Critically low 26.7-34 .0 [facility] Comment on above: Performed By: #### C BC #### [facility] [address] [place] [address] Dr. Jessie Cheney MCHC (RBC) [Mass/Vol] 31.4 g/dL Normal 29.9-35.2 [facility] Comment on above: Performed By: #### C BC #### [facility] [address] [place] [address] Dr. Jessie Cheney MCV (RBC) [Entitic vol] 76.4 fL Critically low 81.0-99. 0 [facility] Comment on above: Performed By: #### C BC #### [facility] [address] [place] [address] Dr. Jessie Cheney MONO # 1.3 103/ul Critically high 0.3-0.8 [facility] Comment on above: Performed By: #### C BC #### [facility] [address] [place] [address] Dr. Jessie Cheney Monocytes/100 WBC (Bld) 9.6 % Normal 1.7-12.0 [facility] Comment on above: Performed By: #### C BC #### [facility] [address] [place] [address] Dr. Jessie Cheney NEUT # 8.9 103/ul Critically high 1.4-6.5 [facility] Comment on above: Performed By: #### C BC #### [facility] [address] [place] [address] Dr. Jessie Cheney Neutrophils/100 WBC (Bld) 64.6 % Normal 43.0-75.0 [facility] Comment on above: Performed By: #### C BC #### [facility] [address] [place] [address] Dr. Jessie Cheney Platelet mean volume (Bld) [Entitic vol] 10.3 fL Normal 9.5-13.5 [facility] Comment on above: Performed By: #### C BC #### [facility] [address] [place] [address] Dr. Jessie Cheney PLT 246 103/ul Normal 150-450 [facility] Comment on above: Performed By: #### C BC #### [facility] [address] [place] [address] Dr. Jessie Cheney RBC 2.54 106/ul Critically low 4.20-5.40 [facility] Comment on above: Performed By: #### C BC #### [facility] [address] [place] [address] Dr. Jessie Cheney WBC 13.8 103/ul Critically high 4.0-11.[address] [facility] Comment on above: Performed By: #### C BC #### [facility] [facility] [address] [place] [address] Dr. Jessie Cheney HEMOGLOBIN AND HEMATOCRITon 06-13-2021 Hematocrit (Bld) [Volume fraction] 26.5 % Critically low 36.0-48.0 [facility] Comment on above: Performed By: #### T , FT3 #### [facility] [address] [place] [address] Dr. Jessie Cheney Hemoglobin (Bld) [Mass/Vol] 8.4 g/dL Critically low 12.0-16.0 [facility] Comment on above: Performed By: #### T , FT3 #### [facility] [address] [place] [address] Dr. Jessie Cheney Hematocrit (Bld) [Volume fraction] 25.9 % Critically low 36.0-48.0 [facility] Comment on above: Performed By: #### B MP #### [facility] [address] [place] [address] Dr. Jessie Cheney Hemoglobin (Bld) [Mass/Vol] 8.0 g/dL Critically low 12.0-16.0 [facility] Comment on above: Performed By: #### B MP #### [facility] [address] [place] [address] Dr. Jessie Cheney CBC AUTO DIFFon 06-12-2021 BASO # 0.0 103/ul Normal 0.0-0.1 [facility] Comment on above: Performed By: #### B MP #### [facility] [address] [place] [address] Dr. Jessie Cheney Basophils/100 WBC (Bld) 0.2 % Normal 0.2-2.0 [facility] Comment on above: Performed By: #### B MP #### [facility] [address] [place] [address] Dr. Jessie Cheney EO # 0.0 103/ul Normal 0.0-0.7 [facility] Comment on above: Performed By: #### B MP #### [facility] [address] [place] [address] Dr. Jessie Cheney Eosinophils/100 WBC (Bld) 0.0 % Critically low 0.9-7.0 [facility] Comment on above: Performed By: #### B MP #### [facility] [address] [place] [address] Dr. Jessie Cheney Erythrocyte distribution width (RBC) [Ratio] 21.2 % Critically high 11.0-15.0 [facility] Comment on above: Performed By: #### B MP #### [facility] [address] [address] [address] Jessie Cheney Hematocrit (Bld) [Volume fraction] 25.7 % Critically low 36.0-48.0 [facility] Comment on above: Performed By: #### B MP #### [facility] [address] [address] [address] Jessie Cheney Hemoglobin (Bld) [Mass/Vol] 7.9 g/dL Critically low 12.0-16.0 [facility] Comment on above: Performed By: #### B MP #### [facility] [address] [address] [address] Jessie Cheney IG # 0.26 10e3/ul Critically high 0.00-0.03 [facility] Comment on above: Performed By: #### B MP #### [facility] [address] [address] [address] Jessie Cheney IG % 1.5 % Critically high 0.0-0.5 [facility] Comment on above: Performed By: #### B MP #### [facility] [address] [address] [address] Jessie Cheney LYMPH # 1.6 103/ul Normal 1.2-3.8 [facility] Comment on above: Performed By: #### B MP #### [facility] [address] [address] [address] Jessie Cheney Lymphocytes/100 WBC (Bld) 9.6 % Critically low 20.5-60.0 [facility] Comment on above: Performed By: #### B MP #### [facility] [address] [address] [address] Jessie Cheney MANUAL DIFF REQ NO Normal [facility] Comment on above: Performed By: #### B MP #### [facility] [address] [place] [address] Dr. Jessie Cheney MCH (RBC) [Entitic mass] 23.7 pg Critically low 26.7-34 .0 [facility] Comment on above: Performed By: #### B MP #### [facility] [address] [address] [address] Jessie Cheney MCHC (RBC) [Mass/Vol] 30.7 g/dL Normal 29.9-35.2 [facility] Comment on above: Performed By: #### B MP #### [facility] [address] [address] [address] Jessie Cheney MCV (RBC) [Entitic vol] 76.9 fL Critically low 81.0-99. 0 [facility] Comment on above: Performed By: #### B MP #### [facility] [address] [address] [address] Jessie Cheney MONO # 0.2 103/ul Critically low 0.3-0.8 [facility] Comment on above: Performed By: #### B MP #### [facility] [address] [address] [address] Jessie Cheney Monocytes/100 WBC (Bld) 1.0 % Critically low 1.7-12.0 [facility] Comment on above: Performed By: #### B MP #### [facility] [address] [address] [address] Jessie Cheney NEUT # 14.8 103/ul Critically high 1.4-6.5 [facility] Comment on above: Performed By: #### B MP #### [facility] [address] [address] [address] Jessie Cheney Neutrophils/100 WBC (Bld) 87.7 % Critically high 43.0-75.0 [facility] Comment on above: Performed By: #### B MP #### [facility] [address] [address] [address] Jessie Cheney Platelet mean volume (Bld) [Entitic vol] 10.5 fL Normal 9.5-13.5 [facility] Comment on above: Performed By: #### B MP #### [facility] [address] [address] [address] Jessie Cheney PLT 275 103/ul Normal 150-450 [facility] Comment on above: Performed By: #### B MP #### [facility] [address] [address] [address] Jessie Cheney RBC 3.34 106/ul Critically low 4.20-5.40 [facility] Comment on above: Performed By: #### B MP #### [facility] [address] [address] [address] Jessie Cheney WBC 16.9 103/ul Critically high 4.0-11.0 [facility] Comment on above: Performed By: #### B MP #### [facility] [address] [address] [address] Jessie Cheney BASO # 0.0 103/ul Normal 0.0-0.1 [facility] Comment on above: Performed By: #### B MP #### [facility] [address] [address] [address] Jessie Cheney Basophils/100 WBC (Bld) 0.3 % Normal 0.2-2.0 [facility] Comment on above: Performed By: #### B MP #### [facility] [address] [address] [address] Jessie Cheney EO # 0.1 103/ul Normal 0.0-0.7 [facility] Comment on above: Performed By: #### B MP #### [facility] [address] [address] [address] Jessie Cheney Eosinophils/100 WBC (Bld) 0.8 % Critically low 0.9-7.0 [facility] Comment on above: Performed By: #### B MP #### [facility] [address] [address] [address] Jessie Cheney Erythrocyte distribution width (RBC) [Ratio] 23.4 % Critically high 11.0-15.0 [facility] Comment on above: Performed By: #### B MP #### [facility] [address] [place] [address] Dr. Jessie Cheney Hematocrit (Bld) [Volume fraction] 20.2 % Critically low 36.0-48.0 [facility] Comment on above: Result Comment: Test Repeated. Critical Value Verified. Performed By: #### B MP #### [facility] [address] [place] [address] Dr. Jessie Cheney Hemoglobin (Bld) [Mass/Vol] 5.7 g/dL Critically low 12.0-16.0 [facility] Comment on above: Result Comment: Test Repeated. Critical Value Verified. Performed By: #### B MP #### [facility] [address] [place] [address] Dr. Jessie Cheney IG # 0.10 10e3/ul Critically high 0.00-0.03 [facility] Comment on above: Performed By: #### B MP #### [facility] [address] [place] [address] Dr. Jessie Cheney IG % 0.7 % Critically high 0.0-0.5 [facility] Comment on above: Performed By: #### B MP #### [facility] [address] [place] [address] Dr. Jessie Cheney LYMPH # 3.7 103/ul Normal 1.2-3.8 [facility] Comment on above: Performed By: #### B MP #### [facility] [address] [place] [address] Dr. Jessie Cheney Lymphocytes/100 WBC (Bld) 25.4 % Normal 20.5-60.0 [facility] Comment on above: Performed By: #### B MP #### [facility] [address] [place] [address] Dr. Jessie Cheney MANUAL DIFF REQ NO Normal [facility] Comment on above: Performed By: #### B MP #### [facility] [address] [place] [address] Dr. Jessie Cheney MCH (RBC) [Entitic mass] 20.3 pg Critically low 26.7-34 .0 [facility] Comment on above: Performed By: #### B MP #### [facility] [address] [place] [address] Dr. Jessie Cheney MCHC (RBC) [Mass/Vol] 28.2 g/dL Critically low 29.9-35.2 [facility] Comment on above: Performed By: #### B MP #### [facility] [address] [address] [address] Jessie Cheney MCV (RBC) [Entitic vol] 71.9 fL Critically low 81.0-99. 0 [facility] Comment on above: Performed By: #### B MP #### [facility] [address] [address] [address] Jessie Cheney MONO # 1.2 103/ul Critically high 0.3-0.8 [facility] Comment on above: Performed By: #### B MP #### [facility] [address] [address] [address] Jessie Cheney Monocytes/100 WBC (Bld) 7.8 % Normal 1.7-12.0 [facility] Comment on above: Performed By: #### B MP #### [facility] [address] [address] [address] Jessie Cheney NEUT # 9.5 103/ul Critically high 1.4-6.5 [facility] Comment on above: Performed By: #### B MP #### [facility] [address] [address] [address] Jessie Cheney Neutrophils/100 WBC (Bld) 65.0 % Normal 43.0-75.0 [facility] Comment on above: Performed By: #### B MP #### [facility] [address] [address] [address] Jessie Cheney Platelet mean volume (Bld) [Entitic vol] 10.6 fL Normal 9.5-13.5 [facility] Comment on above: Performed By: #### B MP #### [facility] [address] [address] [address] Jessie Cheney PLT 373 103/ul Normal 150-450 [facility] Comment on above: Performed By: #### B MP #### [facility] [address] [address] [address] Jessie Cheney RBC 2.81 106/ul Critically low 4.20-5.40 [facility] Comment on above: Performed By: #### B MP #### [facility] [address] [address] [address] Jessie Cheney WBC 14.7 103/ul Critically high 4.0-11.0 [facility] Comment on above: Performed By: #### B MP #### [facility] [address] [address] [address] Jessie Cheney Covid-19 PCR ([facility])on 05-20 SARS-CoV-2 (COVID-19) RNA RADHIKA+probe Ql (Unsp spec) Not detected Normal NOT DETECTED [facility] Comment on above: Result Comment: This test is not yet approved or cleared by the [place] FDA. When there are no FDA-approved or cleared tests available, and other criteria are met, FDA can make tests available under an emergency access mechanism called an Emergency Use Authorization (EUA). The EUA for this test is supported by the [place] of Health and Human Service's (HHS's) declaration that circumstances exist to justify the emergency use of in vitro diagnostics for the detection and/or diagnosis of the virus that causes COVID-19. This EUA will remain in effect (meaning this test can be used) for the duration of the COVID-19 declaration justifying emergency of IVDs, unless it is terminated or revoked by FDA (after which the test may no longer be used). When diagnostic testing is negative, the possibility of a false negative should be considered in the context of a patient's recent exposures and the presence of clinical signs and symptoms consistent with SARS-CoV-2. Performed By: #### B MP #### [facility] [address] [place] [address] Dr. Jessie Cheney FREE T3on 06-12-2021 FREE T3 1.59 pg/mlL Critically low 2.77-5.27 [facility] Comment on above: Performed By: #### T SH, FT3 #### [facility] [address] [place] [address] Dr. Jessie Cheney FREE T4on 06-12-2021 Free T4 [Mass/Vol] 0.94 ng/dL Normal 0.78-2.19 [facility] Comment on above: Performed By: #### C BC #### [facility] [address] [place] [address] Dr. Jessie Cheney IRON AND TIBCon 06-12-2021 % SATURATION 11.2 % Normal [facility] Comment on above: Performed By: #### T SH, FT3 #### [facility] [address] [place] [address] Dr. Jessie Cheney Iron [Mass/Vol] 43.0 ug/dL Normal 37.0-170.0 [facility] Comment on above: Performed By: #### T SH, FT3 #### [facility] [address] [place] [address] Dr. Jessie Cheney TIBC DIRECT 384.0 ug/dL Normal 261.0-497.[address] [facility] Comment on above: Performed By: #### T SH, FT3 #### [facility] [address] [place] [address] Dr. Jessie Cheney LIVER PROFILEon 06-12-2021 Albumin [Mass/Vol] 3.2 g/dL Critically low 3.5-5.0 [facility] Comment on above: Performed By: #### C BC #### [facility] [address] [place] [address] Dr. Jessie Cheney Albumin/Globulin [Mass ratio] 1.1 {ratio} Normal [facility] Comment on above: Performed By: #### C BC #### [facility] [address] [place] [address] Dr. Jessie Cheney ALP [Catalytic activity/Vol] 95 U/L Normal 38-126 [facility] Comment on above: Performed By: #### C BC #### [facility] [address] [place] [address] Dr. Jessie Cheney ALT [Catalytic activity/Vol] 31 U/L Normal 9-52 [facility] Comment on above: Performed By: #### C BC #### [facility] [address] [place] [address] Dr. Jessie Cheney AST [Catalytic activity/Vol] 13 U/L Critically low 14-36 [facility] Comment on above: Performed By: #### C BC #### [facility] [address] [address] [address] Jessie Cheney BILI, CONJUGATED 0.1 mg/dL Normal 0.0-0.3 [facility] Comment on above: Performed By: #### C BC #### [facility] [address] [address] [address] Jessie Cheney Bilirubin [Mass/Vol] 0.2 mg/dL Normal 0.2-1.3 [facility] Comment on above: Performed By: #### C BC #### [facility] [address] [place] [address] Dr. Jessie Cheney Globulin (S) [Mass/Vol] 3.0 g/dL Normal [facility] Comment on above: Performed By: #### C BC #### [facility] [address] [place] [address] Dr. Jessie Cheney Protein [Mass/Vol] 6.2 g/dL Normal 6.1-8.2 [facility] Comment on above: Performed By: #### C BC #### [facility] [address] [place] [address] Dr. Jessie Cheney PROF CHEM 8 (BAS METB)on Anion gap [Moles/Vol] 17.2 mmol/L Normal [facility] Comment on above: Performed By: #### B MP #### [facility] [address] [place] [address] Dr. Jessie Cheney Calcium [Mass/Vol] 9.6 mg/dL Normal 8.4-10.2 [facility] Comment on above: Performed By: #### B MP #### [facility] [address] [place] [address] Dr. Jessie Cheney Chloride [Moles/Vol] 101 mmol/L Normal 98-107 [facility] Comment on above: Performed By: #### B MP #### [facility] [address] [place] [address] Dr. Jessie Cheney CO2 [Moles/Vol] 22.7 mmol/L Normal 22.0-30.0 [facility] Comment on above: Performed By: #### B MP #### [facility] [address] [address] [address] Jessie Cheney Creatinine [Mass/Vol] 1.10 mg/dL Critically high 0.52-1.04 [facility] Comment on above: Performed By: #### B MP #### [facility] [address] [address] [address] Jessie Cheney EGFR-AF MACEDONIAN 59 mL/min/1.73m2 Critically low >=60 [facility] Comment on above: Performed By: #### B MP #### [facility] [address] [address] [address] Jessie Cheney EGFR-NON AF MACEDONIAN 48 mL/min/1.73m2 Critically low >=60 [facility] Comment on above: Performed By: #### B MP #### [facility] [address] [address] [address] Jessie Cheney Glucose [Mass/Vol] 193 mg/dL Critically high 74-106 [facility] Comment on above: Performed By: #### B MP #### [facility] [address] [address] [address] Jessie Cheney Potassium [Moles/Vol] 3.9 mmol/L Normal 3.4-5.0 [facility] Comment on above: Performed By: #### B MP #### [facility] [address] [address] [address] Jessie Cheney Sodium [Moles/Vol] 137 mmol/L Normal 137-145 [facility] Comment on above: Performed By: #### B MP #### [facility] [address] [address] [address] Jessie Cheney Urea nitrogen [Mass/Vol] 40.0 mg/dL Critically high 7.0-17 .0 [facility] Comment on above: Performed By: #### B MP #### [facility] [address] [address] [address] Jessie Cheney Urea nitrogen/Creatinine [Mass ratio] 36.4 mg/mg Normal [facility] Comment on above: Performed By: #### B MP #### [facility] [address] [place] [address] Dr. Jessie Cheney PROTIMEon 06-12-2021 INR Coag (PPP) [Relative time] 1.02 {INR} Normal [facility] Comment on above: Performed By: #### C BC #### [facility] [address] [place] [address] Dr. Jessie Cheney INR GUIDELINES SEE BELOW Normal [facility] Comment on above: Result Comment: SRAVANTHI RED INR: 2.0 - 3.0 CONDITIONS NOT LISTED BELOW 2.5 - 3.5 FOR PROSTHETIC HEART VALVE REPLACEMENT 2.5 - 3.5 RECURRENT THROMBOSIS Performed By: #### C BC #### [facility] [address] [place] [address] Dr. Jessie Cheney PT Coag (PPP) [Time] 11.0 s Normal 9.0-11.6 [facility] Comment on above: Performed By: #### C BC #### [facility] [address] [place] [address] Dr. Jessie Cheney PTTon 06-12-2021 aPTT Coag (Bld) [Time] 21.0 s Critically low 22.3-36.2 [facility] Comment on above: Performed By: #### C BC #### [facility] [address] [place] [address] Dr. Jessie Cheney TROPONIN, HIGH SENSITIVITYon 06-12-2021 HSTROP 8.4 pg/mL Normal 4.0-35.5 [facility] Comment on above: Result Comment: CUT- OFF POINTS HAVE BEEN ESTABLISHED BASED ON THE FOURTH UNIVERSAL DEFINITIONS OF MYOCARDIAL INFARCTION. THE UPPER REFERENCE LIMIT (URL) OF TROPONIN, DEFINED THE 99TH PERCENTILE OF cTnI DISTRIBUTION IN A REFERENCE POPULATION, HAS BEEN CONFIRMED THE DECISION THRESHOLD FOR [place] DIAGNOSIS. Performed By: #### B MP #### [facility] [address] [place] [address] Dr. Jessie Cheney TSHon 06-12-2021 TSH 1.183 uIU/mL Normal 0.470-4.680 [facility] Comment on above: Performed By: #### T SH, FT3 #### [facility] [address] [place], [place] [address] Dr. Jessie Cheney TSH RANGE SEE BELOW Normal [facility] Comment on above: Result Comment: <0.3 4 UIU/ml HYPERTHYROID 0.34-5.60 UIU/ml EUTHYROID >5.60 UIU/ml HYPOTHYROID Performed By: #### T SH, FT3 #### [facility] [address] [address] [address] Jessie Cheney TYPE AND SCREENon 06-12-2021 TYPE AND SCREEN Negative Normal [facility] Comment on above: Performed By: #### T NS #### [facility] [address] [address] [address] Jessie Cheney Vital Signs Date Time Vital Sign Value Performing Clinician Facility 06-27-2023 14:00-0500 Body height 154.94 cm Ramin wywy Other [employer] [facility] Other 06-27-2023 14:00-0500 Body mass index (BMI) [Ratio] 27.02 kg/m2 Ramin Ball Other [employer] [facility] Other 06-27-2023 14:00-0500 Body weight 64.86 kg Ramin Ball Other [employer] [facility] Other 06-27-2023 14:00-0500 Diastolic blood pressure 60 mm[Hg] Ramin Ball Other [employer] [facility] Other 06-27-2023 14:00-0500 Respiratory rate 12 /min Ramin Ball Other [employer] [facility] Other 06-27-2023 14:00-0500 Systolic blood pressure 130 mm[Hg] Ramin Ball Other [employer] [facility] Other 03-27-2023 11:30-0400 Body height 154.94 cm Ramin Ball Other [employer] [facility] Other 03-27-2023 11:30-0400 Body mass index (BMI) [Ratio] 26.98 kg/m2 Ramin Ball Other [employer] [facility] Other 03-27-2023 11:30-0400 Body weight 64.77 kg Ramin Ball Other [employer] [facility] Other 03-27-2023 11:30-0400 Diastolic blood pressure 72 mm[Hg] Ramin Ball Other [employer] [facility] Other 03-27-2023 11:30-0400 Respiratory rate 12 /min Ramin Ball Other [employer] [facility] Other 03-27-2023 11:30-0400 Systolic blood pressure 199 mm[Hg] Ramin Ball Other [employer] [facility] Other 02-01-2023 13:07-0400 Diastolic blood pressure 54 mm[Hg] DO Ramin Ball Work Phone: [facility] 02-01-2023 13:07-0400 Heart rate 52 /min DO Ramin Ball Work Phone: [facility] 02-01-2023 13:07-0400 Respiratory rate 16 /min DO Ramin Ball Work Phone: [facility] 02-01-2023 13:07-0400 SaO2% (BldA) [Mass fraction] 97 % DO Ramin Ball Work Phone: [facility] 02-01-2023 13:07-0400 Systolic blood pressure 105 mm[Hg] DO Ramin Ball Work Phone: [facility] 01-30-2023 11:34-0400 Body temperature 97.9 [degF] DO Ramin Ball Work Phone: [facility] 01-13-2023 11:01-0400 Body temperature 97.6 [degF] DO Ramin Ball Work Phone: [facility] 01-13-2023 11:01-0400 Body weight 64.22 kg DO Ramin Ball Work Phone: [facility] 01-13-2023 11:01-0400 Diastolic blood pressure 75 mm[Hg] DO Ramin Ball Work Phone: [facility] 01-13-2023 11:01-0400 Heart rate 58 /min DO Ramin Ball Work Phone: [facility] 01-13-2023 11:01-0400 Respiratory rate 20 /min DO Ramin Ball Work Phone: [facility] 01-13-2023 11:01-0400 SaO2% (BldA) [Mass fraction] 97 % DO Ramin Ball Work Phone: [facility] 01-13-2023 11:01-0400 Systolic blood pressure 183 mm[Hg] DO Ramin Ball Work Phone: [facility] 12-23-2022 11:00-0400 Body height 154.94 cm Ramin Ball Other [facility] Other 12-23-2022 11:00-0400 Body mass index (BMI) [Ratio] 26.98 kg/m2 Ramin Ball Other [facility] Other 12-23-2022 11:00-0400 Body weight 64.77 kg Ramin Ball Other [facility] Other 12-23-2022 11:00-0400 Diastolic blood pressure 83 mm[Hg] Ramin Ball Other [employer] Other 12-23-2022 11:00-0400 Respiratory rate 12 /min Ramin Ball Other [employer] Other 12-23-2022 11:00-0400 Systolic blood pressure 173 mm[Hg] Ramin Ball Other [facility] Other 07-14-2022 09:57-0500 Body height 152.4 cm DO Ramin Ball Work Phone: [facility] 07-14-2022 09:57-0500 Body weight 63.1 kg DO Ramin Ball Work Phone: [facility] 07-14-2022 09:57-0500 Diastolic blood pressure 73 mm[Hg] DO Ramin Ball Work Phone: [facility] 07-14-2022 09:57-0500 Heart rate 61 /min DO Ramin Ball Work Phone: [facility] 07-14-2022 09:57-0500 Respiratory rate 20 /min DO Ramin Ball Work Phone: [facility] 07-14-2022 09:57-0500 SaO2% (BldA) [Mass fraction] 99 % DO Ramin Ball Work Phone: [facility] 07-14-2022 09:57-0500 Systolic blood pressure 173 mm[Hg] DO Ramin Ball Work Phone: [facility] 07-08-2022 14:30-0500 Body height 154.94 cm Ramin Ball Other [facility] Other 07-08-2022 14:30-0500 Body mass index (BMI) [Ratio] 26.75 kg/m2 Ramin Ball Other [facility] Other 07-08-2022 14:30-0500 Body weight 64.23 kg Ramin Ball Other [facility] Other 07-08-2022 14:30-0500 Diastolic blood pressure 62 mm[Hg] Ramin Ball Other [facility] Other 07-08-2022 14:30-0500 Respiratory rate 12 /min Ramin Ball Other [facility] [employer] [facility] Other 07-08-2022 14:30-0500 Systolic blood pressure 130 mm[Hg] Ramin Ball Other [facility] Other 09-13-2021 14:35-0400 Body temperature 98.1 [degF] DO Ramin Ball Work Phone: [facility] 09-13-2021 14:35-0400 Body weight 66.13 kg DO Ramin Ball Work Phone: [facility] 09-13-2021 14:35-0400 Diastolic blood pressure 56 mm[Hg] DO Ramin Ball Work Phone: [facility] 09-13-2021 14:35-0400 Heart rate 62 /min DO Ramin Ball Work Phone: [facility] 09-13-2021 14:35-0400 Respiratory rate 20 /min DO Ramin Ball Work Phone: [facility] 09-13-2021 14:35-0400 SaO2% (BldA) [Mass fraction] 97 % DO Ramin Ball Work Phone: [facility] 09-13-2021 14:35-0400 Systolic blood pressure 136 mm[Hg] DO Ramin Ball Work Phone: [facility] 06-28-2021 13:01-0500 Body height 152.4 cm DO Ramin Ball Work Phone: [facility] 06-24-2021 10:45-0500 Body height 154.94 cm Estuardo Epps Other [employer] Other 06-24-2021 10:45-0500 Body mass index (BMI) [Ratio] 27.39 kg/m2 Estuardo Epps Other [employer] Other 06-24-2021 10:45-0500 Body weight 65.77 kg Estuardo Epps Other [employer] Other Encounters Encounter Date Encounter Type Care Provider Facility Start: 07-21-2023 End: 07-21-2023 ambulatory Ramin De Paz Other [employer] [facility] Other Start: 07-21-2023 Telephone encounter Ramin De Paz [facility] Start: 07-20-2023 End: 07-20-2023 ambulatory Ramin De Paz Other [employer] [facility] Other Start: 07-20-2023 Telephone encounter Ramin De Paz [facility] Start: 07-19-2023 End: 07-19-2023 ambulatory Ramin De Paz Other [employer] [facility] Other Start: 07-19-2023 Telephone encounter Ramin De Paz [facility] Start: 07-13-2023 End: 07-13-2023 ambulatory Ramin De Paz Facility:[facility] Start: 07-13-2023 End: 07-13-2023 ambulatory DO Ramin Ball Work Phone: [facility] Work Phone: Start: 07-13-2023 End: 07-13-2023 Patient encounter procedure DO Ramin Ball Work Phone: [facility] [place] Work Phone: Start: 07-13-2023 Registered Recurring DO Aryan in [place] Work Phone: [facility] Work Phone: Start: 07-11-2023 End: 07-11-2023 ambulatory Ramin De Paz Other [employer] Other Start: 07-11-2023 Telephone encounter Ramin De Paz [facility] Start: 06-27-2023 End: 06-27-2023 ambulatory Ramin De Paz Other [employer] Other Start: 06-27-2023 Office outpatient visit 25 minutes Ramin De Paz [facility] Start: 06-27-2023 End: 06-27-2023 Patient encounter procedure DO Ramin De Paz Work Phone: [facility] Work Phone: Start: 06-14-2023 End: 06-14-2023 ambulatory Ramin De Paz Other [employer] Other Start: 06-14-2023 Nursing evaluation o f patient and report Ramin De Paz [facility] Start: 05-05-2023 End: 05-05-2023 ambulatory Ramin De Paz Other [employer] [facility] Other Start: 05-05-2023 Nursing evaluation o f patient and report Ramin De Paz [facility] Start: 03-27-2023 End: 03-27-2023 ambulatory Ramin De Paz Other [employer] [facility] Other Start: 03-27-2023 Office outpatient visit 25 minutes Ramin De Paz [facility] Start: 02-10-2023 End: 02-10-2023 ambulatory Ramin De Paz Other [employer] [facility] Other Start: 02-10-2023 Nursing evaluation o f patient and report Ramin De Paz [facility] Start: 02-08-2023 End: 02-08-2023 ambulatory Ramin De Paz Other [employer] [facility] Other Start: 02-08-2023 Telephone encounter Ramin De Paz [facility] Start: 01-13-2023 End: 01-13-2023 ambulatory DO Ramin De Paz Work Phone: [facility] Work Phone: Start: 01-13-2023 End: 01-13-2023 Registered Recurring DO Ramin De Paz Work Phone: [facility] Work Phone: Start: 01-05-2023 End: 01-05-2023 ambulatory Ramin De Paz Other [employer] Other Start: 01-05-2023 Telephone encounter Ramin CARTER [facility] Start: 12-23-2022 End: 12-23-2022 ambulatory Ramin De Paz Other [employer] [facility] Other Start: 12-23-2022 Patient encounter procedure Ramin De Paz [facility] Start: 12-19-2022 End: 12-19-2022 ambulatory Ramin De Paz Other [employer] [facility] Other Start: 12-19-2022 Telephone encounter Ramin CARTER [facility] Start: 11-23-2022 End: 11-23-2022 ambulatory Ramin De Paz Other [employer] [facility] Other Start: 11-23-2022 Nursing evaluation o f patient and report Ramin De Paz [facility] Start: 11-21-2022 End: 11-21-2022 ambulatory Ramin De Paz Other [employer] [facility] Other Start: 11-21-2022 Telephone encounter Ramin CARTER [facility] Start: 08-12-2022 End: 08-12-2022 ambulatory Ramin De Paz Other [employer] [facility] Other Start: 08-12-2022 Nursing evaluation o f patient and report Ramin De Paz [facility] Start: 07-14-2022 End: 07-14-2022 ambulatory DO Ramin De Paz Work Phone: [facility] Work Phone: Start: 07-14-2022 End: 07-14-2022 Registered Recurring DO Ramin De Paz Work Phone: [facility] Work Phone: Start: 07-11-2022 End: 07-11-2022 ambulatory DO Ramin De Paz Work Phone: [facility] Work Phone: Start: 07-11-2022 End: 07-11-2022 Patient encounter procedure DO Ramin De Paz Work Phone: [facility] [place] Work Phone: Start: 07-11-2022 Registered Recurring DO Aryan in [place] [facility] Work [facility]: Start: 07-08-2022 End: 07-08-2022 ambulatory Ramin De Paz Other [employer] Other Start: 07-08-2022 Office outpatient visit 25 minutes Ramin De Paz [facility] Start: 05-31-2022 End: 05-31-[address] RAMIN DE PAZ Facility:[facility] Start: 05-30-2022 End: 05-31-[address] RAMIN DE PAZ Facility:[facility] Start: 03-15-2022 End: 03-16-[address] RAMIN DE PAZ Facility:[facility] Start: 01-10-2022 End: 01-10-2022 Registered Recurring DO Ramin [facility] Start: 01-07-2022 End: 01-07-[address] RAMIN DE PAZ Facility:[facility] Start: 12-22-2021 Adult health examination Ramin De Paz Other [employer] [facility] Other Start: 08-18-2021 End: 08-19-[address] RAMIN DE PAZ Facility:[facility] Start: 08-17-2021 End: 08-17-[address] RAMIN DE PAZ Facility:[facility] Start: 07-26-2021 End: 07-27-[address] RAMIN DE PAZ Facility:[facility] Start: 07-09-2021 End: 07-16-[address] RAMIN DE PAZ Facility:[facility] Start: 06-24-2021 End: 06-24-2021 ambulatory Estuardo Epps Other [employer] Other Start: 06-24-2021 Office outpatient visit 25 minutes Estuardo Epps [facility] Start: 06-21-2021 End: 06-22-[address] RAMIN DE PAZ Facility:[facility] Start: 06-21-2021 End: 06-21-2021 Pre-procedure evaluation check Ramin De Paz Other [employer] [facility] Other Start: 06-17-2021 End: 06-17-[address] RAMIN DE PAZ Facility:[facility] Start: 06-12-2021 End: 06-16-[address] RAMIN DE PAZ Facility:[facility] Start: 05-04-2021 Chart abstracting Chip lackey MD Work Phone: Hematology/Oncology Start: 09-19-2016 End: 09-20-2016 Patient encounter procedure JOSH GALLEGO Facility:[facility] Procedures Date Procedure Procedure Detail Performing Clinician Start: 02-04-2019 Screening for malign ant neoplasm of colon Ramin De Paz Other Start: 07-21-2018 Screening for osteoporosis Ramin De Paz Other Start: 06-08-2015 Screening for malign ant neoplasm of colon Ramin De Paz Other Start: 06-08-2015 Screening mammography B enjanitin De Paz Other Depression screening Silvina De Paz Other Screening for malign ant neoplasm of breast Ramin De Paz Other Plan of Treatment Date Care Activity Detail Author Start: 01-31-2023 End: 02-01-2023 [facility] Start: 01-30-2023 [facility] Start: 01-27-2023 End: 01-27-2023 [facility] Start: 01-24-2023 [facility] Start: 02-17-2021 Influenza vaccination INFLUENZA (#1) [facility] Start: 2010 ADVANCE DIRECTIVE DISCUSSION ADVANCE DIRECTIVE DISCUSSION [facility] Start: 2010 BONE DENSITY BONE DENSITY [facility] Start: 2010 PNEUMOVAX AGE 65 AND OVER WITH 5YR LOOKBACK (#1) PNEUMOVAX AGE 65 AND OVER WITH 5YR LOOKBACK (#1) [facility] Start: 11-13-1995 SHINGRIX VACCINE (1 of 2) SHINGRIX VACCINE (1 of 2) [facility] Start: 1990 COLOGUARD (FIT-DNA) COLOGUARD (FIT-DNA) [facility] Start: 1990 Colonoscopy COLONOSCOPY [facility] Start: 1990 COLORECTAL CANCER SCREENING COLORECTAL CANCER SCREENING [facility] Start: [address] COLONOGRAPHY [facility] Start: 1990 DIABETES SCREEN DIABETES SCREEN [facility] Start: 1990 FECAL OCCULT BLOOD FECAL OCCULT BLOOD [facility] Start: 1990 LIPID SCREEN LIPID SCREEN [facility] Start: 1990 SIGMOIDOSCOPY SIGMOIDOSCOPY [facility] Start: 1964 Urine microalbumin profile DTAP,TDAP,TD (1 - Tdap) [facility] Start: 11-13-1963 HEPATITIS C SCREENING HEPATITIS C SCREENING [facility] Start: 1957 Adult depression screening assessment DEPRESSION SCREENING [facility] Start: 1957 COVID-19 VACCINE (1) [facility] Comprehensive metabo lic 1999 panel - Serum or Plasma [facility] Work Phone: Comprehensive metabo lic 1999 panel - Serum or Plasma [facility] Comprehensive metabo lic 1999 panel - Serum or Plasma [facility] Comprehensive metabo lic 1999 panel - Serum or Plasma [facility] Ferritin [Mass/volum e] in Serum or Plasma [facility] Work Phone: Ferritin [Mass/volum e] in Serum or Plasma [facility] Ferritin [Mass/volum e] in Serum or Plasma [facility] Immunizations Immunization Date Immunization Notes Care Provider Fa david 04-01-2022 influenza virus vaccine, split virus (incl. purified surface antigen) Ramin De Paz Other [employer] Other 04-01-2022 influenza, high dose seasonal, preservative-free Ramin De Paz Other [employer] [facility] Other 04-21-2021 influenza virus vaccine, split virus (incl. purified surface antigen) Ramin De Paz Other [employer] Other 04-15-2020 influenza virus vaccine, split virus (incl. purified surface antigen) Ramin De Paz Other [employer] [facility] Other 04-02-2019 influenza virus vaccine, split virus (incl. purified surface antigen) Ramin De Paz Other [employer] [facility] Other 05-02-2018 influenza virus vaccine, split virus (incl. purified surface antigen) Ramin De Paz Other [employer] [facility] Other 04-23-2018 influenza virus vaccine, split virus (incl. purified surface antigen) Ramin De Paz Other [employer] Other 01-31-2018 pneumococcal polysaccharide vaccine, 23 valent Ramin De Paz Other [employer] [facility] Other 03-21-2016 influenza virus vaccine, split virus (incl. purified surface antigen) Ramin De Paz Other [employer] Other 03-27-2015 pneumococcal conjuga te vaccine, 13 valent Ramin De Paz Other [employer] Other 03-20-2013 tetanus and diphther ia toxoids, adsorbed, preservative free, for adult use (5 Lf of tetanus toxoid and 2 Lf of diphtheria toxoid) Ramin De Paz Other [employer] Other Payers Date Payer Category Payer Self-pay [id number] 2019 Medicare HUMANA MEDICARE HUMANA MEDICARE PPO [id number] 2019-Present [phone] [address] [address] [place] [address] PPO [id number] 1959 Unknown [id number] 1945 Unknown [id number] 1945 Unknown [id number] 1945 Unknown [id number] 1945 Unknown [id number] [id number] 1945 Unknown [id number] [id number] 1945 Unknown [id number] [id number] 1945 Unknown [id number] [id number] 1945 Unknown [id number] [id number] 1945 Unknown [id number] [id number] 1945 Unknown [id number] [id number] 1945 Unknown [id number] 1945 Unknown [id number] Medicare [id number] [id number] Unknown [id number] Unknown [id number] Social History Date Type Detail Facility Start: 05-04-2021 End: 01-13-2023 Tobacco smoking status WYIS Ex-smoker [facility] Start: 1945 Sex Assigned At Not on file [facility] Sex Assigned At Sex Assigned At Bir th [employer] [facility] Other Start: 1945 Sex Assigned At Female F [facility] Medical Equipment Procedure Code Equipment Code Equipment Origin al Text Equipment Identifier Dates Capsule endoscopy, for patency of lumen evaluation Video capsule endoscopy system [id number] FDA Start: 06-30-2021 Goals Date Patient Goal Desired Activity /State Clinical Notes 06-24-2021 to 07-21-2023 Note Date & Type Note Facility 07-21-2023 Evaluation note Encounter Date Diagnosis Assessment Notes Jul, Type 2 diabetes mellitus with hyperglycemia , without long-term current use of insulin (ICD-10 - E11.65) [employer] [facility] [facility] Other 01-31-2024 Evaluation note* Encounter Date Diagnosis Assessment Notes Treatment Notes Treatment Clinical Notes Jun, Type 2 diabetes mellitus with hyperglycemia, without long-term current use of insulin (ICD-10 - E11.65) [employer] [facility] Other 01-09-2024 Evaluation note* Encounter Date Diagnosis Assessment Notes Treatment Notes Treatment Clinical Notes Jun, Type 2 diabetes mellitus with hyperglycemia, without long-term current use of insulin (ICD-10 - E11.65) This patient is following a comprehensive diabetic treatment plan. They are checking their feet daily for calluses and nonhealing ulcers. They are being seen for yearly dilated eye examinations. Goals: SBP less than 130, LDL less than 100, FBS less than 140, A1C less than 7%. They are checking their BS daily, will which are reviewed at the office visit. Continue regular routine monitoring of A1C,] Microalbumin, Dilated eye exam and Foot exam Jun, Type 2 diabetes mellitus with diabetic polyneuropathy, without long-term current use of insulin (ICD-10 - E11.42) Inspect feet daily for cuts and calluses.Recommend diabetic shoes and inserts to prevent callus formation.Fall precautions. Jun, Primary hypertension (ICD-10 - I10) This patient is instructed to consume a healthy, low-fat, low-salt diet. They are also encouraged to continue exercise to achieve/maintain a normal BMI. Jun, Stage 4 chronic kidney disease (ICD-10 - N18.4) The patient is instructed on adequate control of hypertension and diabetes, if appropriate. They are also educated on the associated risks of NSAIDs and PPI use with kidney disease. They were instructed on adequate fluid balance and to avoid dehydration. Jun, Elevated cholesterol (ICD-10 - E78.00) Instructed on diet and exercise with continued statin therapy.Discussed the beneficial effects of lowering cholesterol in reducing the risk for cerebrovascular and cardiovascular disease. Jun, Cerebral atherosclerosis (ICD-10 - I67.2) No new focal neurologic deficits, Reviewed stroke symptoms w/ instructions to go to ER for suspicious symptoms Continue secondary prevention measures. Jun, Lumbar spondylosis (ICD-10 - M47.816) The patient is instructed to avoid bending, twisting or lifting. They are to use intermittent heat and ice as needed. They may schedule a massage or gentle manipulation. They may safely use Tylenol as needed. Jun, Gastroesophageal reflux disease with esophagitis without hemorrhage (ICD-10 - K21.00) Avoid lying flat after eating. Avoid eating 2 hours prior to bedtime. Smaller, frequent meals may be better tolerated.Weight loss if overweight.PPI with any heartburn.Monitor for dysphagia. Jun, Pernicious anemia (ICD-10 - D51.0) Continue B12 supplementation [employer] [facility] Other 12-27-2023 Evaluation note* Encounter Date Diagnosis Assessment Notes Treatment Notes Treatment Clinical Notes May, Pernicious anemia (ICD-10 - D51.0) [employer] [facility] Other 11-17-2023 Evaluation note* Encounter Date Diagnosis Assessment Notes Treatment Notes Treatment Clinical Notes Apr, Pernicious anemia (ICD-10 - D51.0) [employer] [facility] Other 10-09-2023 Evaluation note* Encounter Date Diagnosis Assessment Notes Treatment Notes Treatment Clinical Notes Mar, Primary hypertension (ICD-10 - I10) This patient is instructed to consume a healthy, low-fat, low-salt diet. They are also encouraged to continue exercise to achieve/maintain a normal BMI. Patient is instructed on home BP measurements: - rest for 5 minutes w/o talking- positioned w/ feet on floor and arm supported- average best 2/3 readings w/ goal < 135/85 She was instructed to call w/ readings Stressed importance to control BP w/ CKD and hx of CVA Mar, Stage 4 chronic kidney disease (ICD-10 - N18.4) The patient is instructed on adequate control of hypertension and diabetes, if appropriate. They are also educated on the associated risks of NSAIDs and PPI use with kidney disease. They were instructed on adequate fluid balance and to avoid dehydration. Mar, Type 2 diabetes mellitus with hyperglycemia, without long-term current use of insulin (ICD-10 - E11.65) This patient is following a comprehensive diabetic treatment plan. They are checking their feet daily for calluses and nonhealing ulcers. They are being seen for yearly dilated eye examinations. Goals: SBP less than 130, LDL less than 100, FBS less than 140, A1C less than 7%. They are checking their BS daily, will which are reviewed at the office visit. Continue regular routine monitoring of A1C,] Microalbumin, Dilated eye exam and Foot exam Mar, Type 2 diabetes mellitus with diabetic polyneuropathy, without long-term current use of insulin (ICD-10 - E11.42) Inspect feet daily for cuts and calluses.Recommend diabetic shoes and inserts to prevent callus formation.Fall precautions. Mar, Elevated cholesterol (ICD-10 - E78.00) Instructed on diet and exercise with continued statin therapy.Discussed the beneficial effects of lowering cholesterol in reducing the risk for cerebrovascular and cardiovascular disease. Mar, Cerebral atherosclerosis (ICD-10 - I67.2) Healthy diet, exercise, continue secondary prevention measures. Mar, Lumbar spondylosis (ICD-10 - M47.816) The patient is instructed to avoid bending, twisting or lifting. They are to use intermittent heat and ice as needed. They may schedule a massage or gentle manipulation. They may safely use Tylenol as needed. Mar, Gastroesophageal reflux disease with esophagitis without hemorrhage (ICD-10 - K21.00) Diet instructions: Smaller portions, avoid eating and laying flat, avoid eating or drinking prior to bedtime. Weight loss. Mar, Pernicious anemia (ICD-10 - D51.0) Continue B12 injections monthly [employer] [facility] Other 08-25-2023 Evaluation note* Encounter Date Diagnosis Assessment Notes Treatment Notes Treatment Clinical Notes Jan, Pernicious anemia (ICD-10 - D51.0) [employer] [facility] Other 07-20-2023 Evaluation note* Encounter Date Diagnosis Assessment Notes Treatment Notes Treatment Clinical Notes Dec, Stage 4 chronic kidney disease (ICD-10 - N18.4) [employer] [facility] Other 07-20-2023 Evaluation note* Encounter Date Diagnosis Assessment Notes Treatment Notes Treatment Clinical Notes Dec, Primary hypertension (ICD-10 - I10) Dec, Stage 4 chronic kidney disease (ICD-10 - N18.4) [employer] [facility] Other 07-07-2023 Evaluation note* Encounter Date Diagnosis Assessment Notes Treatment Notes Treatment Clinical Notes Dec, Medicare annual wellness visit, subsequent (ICD-10 - Z00.00) Personalized health advice was given to the beneficiary including a written plan for screenings discussed and provided. Advanced care planning reviewed and/or information given as requested. Additional counseling was provided here today in regards to, [ ]. The above visit was performed by [ ], under direct supervision of [ ]. Document reviewed and amended by provider signed below. Dec, Type 2 diabetes mellitus with hyperglycemia, without long-term current use of insulin (ICD-10 - E11.65) This patient is following a comprehensive diabetic treatment plan. They are checking their feet daily for calluses and nonhealing ulcers. They are being seen for yearly dilated eye examinations. Goals: SBP less than 130, LDL less than 100, FBS less than 140, AC and A1C less than 7%. They are checking their BS daily, will which are reviewed at the office visit. Continue regular routine monitoring of A1C,] Microalbumin, Dilated eye exam and Foot exam Dec, Type 2 diabetes mellitus with diabetic polyneuropathy, without long-term current use of insulin (ICD-10 - E11.42) Inspect feet daily for cuts and calluses.Recommend diabetic shoes and inserts to prevent callus formation.Fall precautions. 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 Continue ASA and statin therapy Walk daily Inspect feet daily for cuts/calluses Dec, Gastroesophageal reflux disease with esophagitis without hemorrhage (ICD-10 - K21.00) Diet instructions: Smaller portions, avoid eating and laying flat, avoid eating or drinking prior to bedtime. Weight loss. Dec, Chronic venous insufficiency of lower extremity (ICD-10 - I87.2) Avoid salt and elevate lower extremities, support stockings, inspect legs and feet daily for blisters and ulcerations. Dec, Hyperlipidemia type II (ICD-10 - E78.01) Instructed on diet and exercise with continued statin therapy.Discussed the beneficial effects of lowering cholesterol in reducing the risk for cerebrovascular and cardiovascular disease. Dec, Pernicious anemia (ICD-10 - D51.0) Continue B12 monthly injections Dec, Cerebral atherosclerosis (ICD-10 - I67.2) No new focal neurologic deficits. Continue secondary prevention measures. Healthy low fat diet Dec, Hypercalcemia (ICD-1 0 - E83.52) Normal PTH Hx of hypercalcemia. Normal PTH, Vitamin D and Urine Ca Dec, High risk medication use (ICD-10 - Z79.899) Dec, Vitamin D deficiency (ICD-10 - E55.9) Dec, Other s/p partial thyroidectomy [employer] Other 07-03-2023 Evaluation note* Encounter Date Diagnosis Assessment Notes Treatment Notes Treatment Clinical Notes Dec, Atherosclerosis of [place] artery of left lower extremity with intermittent claudication (ICD-10 - I70.212) [employer] Other 06-07-2023 Evaluation note* Encounter Date Diagnosis Assessment Notes Treatment Notes Treatment Clinical Notes Nov, Pernicious anemia (ICD-10 - D51.0) [employer] Other 02-24-2023 Evaluation note* Encounter Date Diagnosis Assessment Notes Treatment Notes Treatment Clinical Notes Jul, Pernicious anemia (ICD-10 - D51.0) [employer] Other 01-31-2023 Progress note Author Tatiana Christianson [facility] July 19, 2022 9:00am Note Date/Time July 14, 2022 1 0:22am [facility] at [address] [address] Hem/Onc Follow Up Note - OP Signed Patient: Maame Velasco MR#: [id number] : 1945 Acct:[id number] Age/Sex: 76 / F Type: REG RCR Copies to: DO Bela Calderon MD~ Subjective Date/Time of Service: Date of Service: 07/14/2022 Time of Service: 10:20 Chief Complaint: Patient is here for a 6 month follow up with labs for review. No concerns voiced at this time. HPI: 75-year-old female with a history of anemia previously followed by [facility]. She presented to the emergency room on 2020 with melena weakness and fatigue. Preceding this she had about 7 weeks of melena and had required a few units of blood as an outpatient. She had been referred to Dr. Epps. She had had an EGD and colonoscopy by Dr. Epps on 06/08/2021 and a small bleeding vessel was cauterized and her upper endoscopy. Her colonoscopy was completely normal. She has past medical history She was on aspirin and plavix since she had 3 mini strokes in 2018 or 2019. She also has a history of thyroidectomy, type 2 diabetes, hypertension, hyperlipidemia. She quit smoking in her 50s. She does not drink alcohol. During her hospitalization she had a tagged red blood cell scan which was unrevealing and repeat EGD which was also unrevealing and June 13, 2021. During her hospitalization she received 2 bags of Venofer 300 mg and a third upon discharge. She did not have any evidence of hemolysis. She was dischargedwithout aspirin and Plavix and has not noted black or bloody stool since. she is very nervous to be off of aspirin and plavix since her hospitalization discharge around 06/16/21. she has capsule endoscopy upcoming with Dr. Epps. 07/12/20 She was at [facility] and got venofer. She got premedication with a steroid because she had a slight reaction to her venofer in the hospital. She did fine when she got the iron with the premedications. She had her iron at [place] and then came here to get labs from [facility] on the same day. her hb 12.8. no black or bloody stools. She had capsule endoscopy results with no evidence of bleeding. 08/09/21 she feels well today and is without new complaints her fatigue has improved quite a bit since IV iron denies any s/s of bleeding, no dark stools continues on aspirin, will re-start plavix today 09/13/21 She is doing well. no iv iron sice her dosing in jun. her iron sat recently 17%, low normal ferritin, hb 13.6. Not eating ice popcorn currently. tolerating plavix and aspirin well. 07/14/2022: Patient is here for interval 6 month follow up with labs. No IV iron x 1 year; last infusion was in June 2021 Clinically, she is doing well Reports she feels good Denies excessive fatigue, chest pain, SOB, weight loss, palpitations, leg cramping or PICA She is no longer eating popcorn by the bagfuls Hgb- 12.4; Iron saturation - 19.3%; ferritin- 53.8 Calcium - 10.6; patient is no longer taking supplemental calcium No bony pain or other constitutional symptoms Subjective/ROS - Narrative: As per the HPI, otherwise 10 point review of systems is negative PMFSH - Medical History Medical History: Medical History (Last Reviewed 06/30/21 @ 07:23 by Sydni Moon RN) Diabetes Hyperlipidemia Hypertension Iron deficiency anemia Mini stroke - Surgical History Surgical History: Surgical History (Last Reviewed 06/30/21 @ 07:23 by Sydni Moon RN) History of appendectomy History of partial thyroidectomy History of tonsillectomy - Family History Family History: Family History (Last Reviewed 06/30/21 @ 07:23 by Sydni Moon RN) Father Bladder cancer Mother Diabetes - Social History Smoking Status: Former smoker Tobacco Type: cigarettes Substance Use Type: None Home Medications & Allergies Allergies Penicillins Allergy (Verified 06/28/21 13:00) Unknown Reaction Home Medications amlodipine 5 mg tablet 5 mg PO DAILY 06/08/21 [History Confirmed 09/13/21] aspirin 81 mg tablet,delayed release 81 mg PO DAILY 06/08/21 [History Confirmed 09/13/21] atorvastatin 10 mg tablet 10 mg PO DAILY 06/08/21 [History Confirmed 09/13/21] clopidogrel 75 mg tablet 75 mg PO DAILY 06/08/21 [History Confirmed 09/13/21] famotidine 10 mg tablet 10 mg PO DAILY 06/08/21 [History Confirmed 09/13/21] gabapentin 100 mg capsule 100 mg PO BID 06/08/21 [History Confirmed 09/13/21] glipizide 10 mg tablet 10 mg PO BID 06/08/21 [History Confirmed 09/13/21] losartan 100 mg tablet 100 mg PO DAILY 06/08/21 [History Confirmed 09/13/21] sitagliptin phosphate 50 mg-metformin 1,000 mg tablet (Janumet) 1 tab PO BID 06/08/21 [History Confirmed 09/13/21] carvedilol 6.25 mg tablet 6.25 mg PO BID 08/09/21 [History Confirmed 09/13/21] furosemide 20 mg tablet 20 mg PO DAILY 08/09/21 [History Confirmed 09/13/21] cholecalciferol (vitamin D3) 50 mcg (2,000 unit) capsule 2,000 unit PO DAILY 07/14/22 [History Confirmed 07/14/22] Objective - Resuscitation Status Resuscitation Status: Full Code - Height/Weight Height/Weight: Height 5 ft Weight 63.1 kg - Vital Signs Vital Signs: 07/14/22 09:57 Pulse Rate [Right Brachial] 61 Respiratory Rate 20 Blood Pressure [Right Arm] 173/73 H 02 Sat by Pulse Oximetry 99 Oxygen Delivery Method Room Air Physical Exam Narrative: ECOG PS: 0 General : patient is alert and oriented to person place and time, no acute distress. Neck: no JVD or thyromegaly. Lymph: no cervical, supraclavicular, axillary adenopathy. Heart: regular rate and rhythm no murmurs rubs or gallops. Abdomen: soft nontender nondistended, no hepatosplenomegaly. Lungs: clear to auscultation bilaterally. No wheezes, rales, rhonchi. Extremities: no clubbing cyanosis. - ECOG Performance Status ECOG Score: 0 Results - Labs Labs: Diagram of Most Recent CBC and CMP 07/11/22 09:44 07/11/22 09:44 Labs - Last 7 Days 07/11/22 09:44: PHA Creatinine Clear 31.24, Sodium 137, Potassium 4.8, Chloride 99, Carbon Dioxide 25.8, Anion Gap 17.0 H, BUN 23, Creatinine 1.30 H, Est GFR ( Amer) 48, Est GFR (Non-Af Amer) 40, Glucose 155 H, Calcium 10.6 H, Iron69, TIBC 358, Iron Saturation 19.3 L, Transferrin 256, Ferritin 53.8, Total Bilirubin 0.5, AST 19, ALT 21, Alkaline Phosphatase 81, Total Protein 6.8, Albumin 4.3, Globulin 2.5, Albumin/Globulin Ratio 1.7 07/11/22 09:44: Corrected WBC 9.6, Uncorrected WBC Count 9.6, RBC 4.27, Hgb 12.4, Hct 38.0, MCV 88.8, MCH 29.1, MCHC 32.7, RDW 13.7, Plt Count 259, MPV 9.7,Neut % (Auto) 60.5, Lymph % (Auto) 27.7, [place] % (Auto) 8.0, Eos % (Auto) 3.1, Baso % (Auto) 0.7, Nucleat RBC Rel Count 0.1, Neut # (Auto) 5.8, Lymph # (Auto) 2.6, [place] # (Auto) 0.8, Eos # (Auto) 0.3, Baso # (Auto) 0.1 Assessment and Plan (1) Iron deficiency anemia 1.) Blood loss anemia She was very iron deficient during her hospitalization in late May 2021. She was repleted with 3 bags of IV iron Venofer 300 mg and tolerated it well. --Her hemoglobin and iron have recovered quickly after IV iron repletion. She had capsule endoscopy in Jun 2021 that was normal. 2 EGDs and colonoscopy in late 2020 were unrevealing for source of bleeding. There was a small nonbleeding AVM in her first EGD noted by Dr. Epps. --No evidence of hemolysis. Continue to avoid oral iron for now as this causes significant GI complaints andwould mask recurrence of her melena. She restarted her aspirin Jun 2021 and in Jul 2021 restarted her plavix. Labs from 08/06/21 with normal hgb, iron saturation up to 19%, ferritin normal. labs in late august iron sat is up to 17%. 07/14/2022: Interval 6 month follow up with labs. Hgb - 12.3; iron saturation - 19.3% and ferritin level - 53.8. Asymptomatic; denies excessive fatigue, shortness of breath, palpitations, PICA or leg cramping. Denies melena, hematochezia, BRBPR, or hematuria. 2.) Hypertension - follows regularly with PCP 3.) Hypercalcemia - asymptomatic, consistent mild elevation of calcium l - normal PTH in December 2021 with relatively normal Vitamin D level - due to mild - moderate CKD - will add paraprotein labs to next lab draw. 4.) CKD - GFR - 40 - 50 range - f/u PCP (2) Hypertension (3) Hypercalcemia (4) CKD (chronic kidney disease) stage 3, GFR 30-59 ml/min - Time with Patient Time Spent with Patient (Follow Up Visit): 35 minutes Coordination of Care & Counseling Time: Greater than 50% of time spent with patient was for coordination of care (as documented) and [id number] counseling of patient and/or family. Dictated By: Tatiana Christianson APRN DD/ 1020 Signed By: <Electronically signed by MARY ALICE Christianson> 07/19/22 0900 [facility] Work Phone: 1([phone]) 149-931801-20-2023 Evaluation note* Encounter Date Diagnosis Assessment Notes Treatment Notes Treatment Clinical Notes Jun, Type 2 diabetes mellitus with diabetic polyneuropathy, without long-term current use of insulin (ICD-10 - E11.42) Inspect feet daily for cuts and calluses. Proper footwear to prevent preulcerative calluses. Fall precautions Jun, Type 2 diabetes mellitus with hyperglycemia, without long-term current use of insulin (ICD-10 - E11.65) This patient is following a comprehensive diabetic treatment plan. They are checking their feet daily for calluses and nonhealing ulcers. They are being seen for yearly dilated eye examinations. Goals: SBP less than 130, LDL less than 100, FBS less than 140, AC and A1C less than 7%. They are checking their BS daily, will which are reviewed at the office visit. A1C: [ ] Microalbumin: [ ] Eye exam: [ ] Foot exam: [ ] Jun, Essential hypertensi on (ICD-10 - I10) This patient is instructed to consume a healthy, low-fat, low-salt diet. They are also encouraged to continue exercise to achieve/maintain a normal BMI. Jun, Cerebral atherosclerosis (ICD-10 - I67.2) Continue secondary prevention: ASA, Plavix and Statin therapy. Control BP and BS Jun, AVM (arteriovenous malformation) of stomach, acquired (ICD-10 - K31.819) Monitor for Fe deficency. Inspect BM daily for bleeding. Jun, Gastroesophageal reflux disease with esophagitis without hemorrhage (ICD-10 - K21.00) Diet instructions: Smaller portions, avoid eating and laying flat, avoid eating or drinking prior to bedtime. Weight loss. Jun, Hypercalcemia (ICD-1 0 - E83.52) Jun, Pernicious anemia (ICD-10 - D51.0) Jun, Hyperlipidemia type II (ICD-10 - E78.01) Diet and exercise with continued statin therapy. Jun, Chronic venous insufficiency of lower extremity (ICD-10 - I87.2) Avoid salt and elevate lower extremities, support stockings, inspect legs and feet daily for blisters and ulcerations. [employer] Other 03-28-2022 Progress note Author Jose Loyola [facility] September 13, 2021 2:57pm Note Date/Time September 13, 2021 2:5 3pm [facility] [place] [address] Hem/Onc Follow Up Note - OP Signed Patient: Maame Velasco MR#: [id number] : 1945 Acct:[id number] Age/Sex: 75 / F Type: REG RCR Copies to: DO Bela Calderon MD~ Date of Service: 09/13/2021 Time of Service: 14:52 - Assessment & Plan (1) Iron deficiency anemia Plan: blood loss anemia She was very iron deficient during her hospitalization in late May 2021. She was repleted with 3 bags of IV iron Venofer 300 mg and tolerated it well. --Her hemoglobin and iron have recovered quickly after IV iron repletion. She had capsule endoscopy in Jun 2021 that was normal. 2 EGDs and colonoscopy in late 2020 were unrevealing for source of bleeding. There was a small nonbleeding AVM in her first EGD noted by Dr. Epps. --No evidence of hemolysis. Continue to avoid oral iron for now as this causes significant GI complaints andwould mask recurrence of her melena. She restarted her aspirin Jun 2021 and Jul 2021 will restart her plavix. Labs from 08/06/21 with normal hgb, iron saturation up to 19%, ferritin normal. labs in late august iron sat is up to 17%. hypertension She is following Dr. De Paz. She will see him the first week of August 2021 and will need BP meds adjusted again, as her systolic bp is not responding as well to therapy and remains in the 180s. hypercalcemia will check vitamin d and pth prior to next f/u. Follow Up Instructions: check iron studies, cbc, cmp, pth, vit D (25 and 1,25) in 2 months and again prior to f/u in 4 months. f/u in 4 months. - History of Present Illness Chief Complaint: Patient is here for a one month follow up with labs for review.No concerns voiced. HPI: 75-year-old female with a history of anemia previously followed by [facility]. She presented to the emergency room on 2020 with melena weakness and fatigue. Preceding this she had about7 weeks of melena and had required a few units of blood as an outpatient. She had been referred to Dr. Epps. She had had an EGD and colonoscopy by Dr. Eppson 06/08/2021 and a small bleeding vessel was cauterized and her upper endoscopy. Her colonoscopy was completely normal. She has past medical history She was on aspirin and plavix since she had 3 mini strokes in 2018 or 2019. She also has a history of thyroidectomy, type 2 diabetes, hypertension, hyperlipidemia. She quit smoking in her 50s. She does not drink alcohol. During her hospitalization she had a tagged red blood cell scan which was unrevealing and repeat EGD which was also unrevealing and June 13, 2021. During her hospitalization she received 2 bags of Venofer 300 mg and a third upon discharge. She did not have any evidence of hemolysis. She was dischargedwithout aspirin and Plavix and has not noted black or bloody stool since. she is very nervous to be off of aspirin and plavix since her hospitalization discharge around 06/16/21. she has capsule endoscopy upcoming with Dr. Epps. 07/12/20 She was at [facility] and got venofer. She got premedication with a steroid because she had a slight reaction to her venofer in the hospital. She did fine when she got the iron with the premedications. She had her iron at [place] and then came here to get labs from [facility] on the same day. her hb 12.8. no black or bloody stools. She had capsule endoscopy results with no evidence of bleeding. 08/09/21 she feels well today and is without new complaints her fatigue has improved quite a bit since IV iron denies any s/s of bleeding, no dark stools continues on aspirin, will re-start plavix today 09/13/21 She is doing well. no iv iron sice her dosing in jun. her iron sat recently 17%, low normal ferritin, hb 13.6. Not eating ice popcorn currently. tolerating plavix and aspirin well. - Physical Exam ECOG PS: 0 General : patient is alert and oriented to person place and time, no acute distress. Neck: no JVD or thyromegaly. Lymph: no cervical, supraclavicular, axillary adenopathy. Heart: regular rate and rhythm no murmurs rubs or gallops. Abdomen: soft nontender nondistended, no hepatosplenomegaly. Lungs: clear to auscultation bilaterally. No wheezes, rales, rhonchi. Extremities: no clubbing cyanosis. - Time with Patient Coordination of Care & Counseling Time: Greater than 50% of time spent with patient was for coordination of care (as documented) and [id number] counseling of patient and/or family. [facility] - Medical History Medical History: Medical History (Last Reviewed 06/30/21 @ 07:23 by Sydni Moon RN) Diabetes Hyperlipidemia Hypertension Iron deficiency anemia Mini stroke - Surgical History Surgical History: Surgical History (Last Reviewed 06/30/21 @ 07:23 by Sydni Moon RN) History of appendectomy History of partial thyroidectomy History of tonsillectomy - Family History Family History: Family History (Last Reviewed 06/30/21 @ 07:23 by Sydni Heinsen, RN) Father Bladder cancer Mother Diabetes - Social History Smoking Status: Former smoker Tobacco Type: cigarettes Substance Use Type: None Additional Data - Additional Objective Data Height/Weight: Height 5 ft Weight 66.134 kg Vital Signs: 09/13/21 14:35 Temperature 98.1 F Pulse Rate [Right Brachial] 62 Respiratory Rate 20 Blood Pressure [Right Arm] 136/56 L 02 Sat by Pulse Oximetry 97 - Lab Results Diagram of Most Recent CBC and CMP 09/10/21 11:07 09/10/21 11:07 Labs - Last 7 Days 09/10/21 11:07: PHA Creatinine Clear 43.40, Sodium 135 L, Potassium 5.1, Chloride 97, Carbon Dioxide 24.7, BUN 23, Creatinine 0.95, Est GFR ( Amer) > 60, Est GFR (Non-Af Amer) 57, Glucose 288 H, Calcium 10.4 H, Iron 64, TIBC 368, Iron Saturation 17.0 L, Transferrin 263, Ferritin 83.0, Total Bilirubin 0.8, AST 15, ALT 21, Alkaline Phosphatase 116 H, Total Protein 6.7, Albumin 4.0, Globulin 2.7, Albumin/Globulin Ratio 1.5 09/10/21 11:07: Corrected WBC 8.6, Uncorrected WBC Count 8.6, RBC 4.87, Hgb 13.6, Hct 41.4, MCV 85.0, MCH 28.0, MCHC 32.9, RDW 15.9 H, Plt Count 225, MPV 9.3, Neut % (Auto) 56.4, Lymph % (Auto) 30.4, [place] % (Auto) 9.4, Eos % (Auto) 3.2, Baso % (Auto) 0.6, Neut # (Auto) 4.9, Lymph # (Auto) 2.6, [place] # (Auto) 0.8, Eos # (Auto) 0.3, Baso # (Auto) 0.1, Nucleated RBC % (auto) 0.1, Platelet Estimate Normal, Large Platelets Slight, Plt Morphology Comment N/A, RBC Morphology Normal - Home Medications and Allergies Allergies/Adverse Reactions: Allergies Penicillins Allergy (Verified 06/28/21 13:00) Unknown Reaction Home Medications: Home Medications amlodipine 5 mg tablet 5 mg PO DAILY 06/08/21 [History Confirmed 09/13/21] aspirin 81 mg tablet,delayed release 81 mg PO DAILY 06/08/21 [History Confirmed 09/13/21] atorvastatin 10 mg tablet 10 mg PO DAILY 06/08/21 [History Confirmed 09/13/21] clopidogrel 75 mg tablet 75 mg PO DAILY 06/08/21 [History Confirmed 09/13/21] famotidine 10 mg tablet 10 mg PO DAILY 06/08/21 [History Confirmed 09/13/21] gabapentin 100 mg capsule 100 mg PO BID 06/08/21 [History Confirmed 09/13/21] glipizide 10 mg tablet 10 mg PO BID 06/08/21 [History Confirmed 09/13/21] losartan 100 mg tablet 100 mg PO DAILY 06/08/21 [History Confirmed 09/13/21] polysaccharide iron complex 150 mg iron capsule (iFerex 150) 150 mg PO DIRECTED 06/08/21 [History Confirmed 09/13/21] sitagliptin 50 mg-metformin 1,000 mg tablet (Janumet) 1 tab PO BID 06/08/21 [History Confirmed 09/13/21] carvedilol 6.25 mg tablet 6.25 mg PO BID 08/09/21 [History Confirmed 09/13/21] furosemide 20 mg tablet 20 mg PO DAILY 08/09/21 [History Confirmed 09/13/21] Dictated By: Jose Loyola II, DO DD/ 51 Signed By: <Electronically signed by Jose Loyola II, DO> 09/13/21 [facility] Work Phone: 1([phone]) 124-651302-21-2022 Progress note Author Cora Gaming [facility] August 09, 2021 3:16pm Note Date/Time August 09, 2021 2:57pm [facility] [place] [address] Hem/Onc Follow Up Note - OP Signed Patient: Maame Velasco MR#: [id number] : 1945 Acct:[id number] Age/Sex: 75 / F Type: REG RCR Copies to: DO Bela Calderon MD Timothy J Adamowicz, II, DO~ Date of Service: 08/09/2021 Time of Service: 14:56 - Assessment & Plan (1) Iron deficiency anemia Plan: blood loss anemia She was very iron deficient during her hospitalization in late May 2021. She was repleted with 3 bags of IV iron Venofer 300 mg and tolerated it well. --Her hemoglobin and iron have recovered quickly after IV iron repletion. She had capsule endoscopy in Jun 2021 that was normal. 2 EGDs and colonoscopy in late 2020 were unrevealing for source of bleeding. There was a small nonbleeding AVM in her first EGD noted by Dr. Epps. --No evidence of hemolysis. Continue to avoid oral iron for now as this causes significant GI complaints andwould mask recurrence of her melena. She restarted her aspirin Jun 2021 and Jul 2021 will restart her plavix. Labs from 08/06/21 with normal hgb, iron saturation up to 19%, ferritin normal. We will re-evaluate in 1 month after re-starting plavix to confirm this is not causing any bleeding hypertension She is following Dr. De Paz. She will see him the first week of August 2021 and will need BP meds adjusted again, as her systolic bp is not responding as well to therapy and remains in the 180s. - History of Present Illness Chief Complaint: Patient is here for a one month follow up with labs 08/06/21 for review, patient states that she got iron at [place] 3 weeks ago. HPI: 75-year-old female with a history of anemia previously followed by [facility]. She presented to the emergency room on 2020 with melena weakness and fatigue. Preceding this she had about 7 weeks of melena and had required a few units of blood as an outpatient. She had been referred to Dr. Epps. She had had an EGD and colonoscopy by Dr. Epps on 06/08/2021 and a small bleeding vessel was cauterized and her upper endoscopy. Her colonoscopy was completely normal. She has past medical history She was on aspirin and plavix since she had 3 mini strokes in 2018 or 2019. She also has a history of thyroidectomy, type 2 diabetes, hypertension, hyperlipidemia. She quit smoking in her 50s. She does not drink alcohol. During her hospitalization she had a tagged red blood cell scan which was unrevealing and repeat EGD which was also unrevealing and June 13, 2021. During her hospitalization she received 2 bags of Venofer 300 mg and a third upon discharge. She did not have any evidence of hemolysis. She was dischargedwithout aspirin and Plavix and has not noted black or bloody stool since. she is very nervous to be off of aspirin and plavix since her hospitalization discharge around 06/16/21. she has capsule endoscopy upcoming with Dr. Epps. 07/12/20 She was at [facility] and got [facility]er. She got premedication with a steroid because she had a slight reaction to her venofer in the hospital. She did fine when she got the iron with the premedications. She had her iron at [place] and then came here to get labs from [facility] on the same day. her hb 12.8. no black or bloody stools. She had capsule endoscopy results with no evidence of bleeding. 08/09/21 she feels well today and is without new complaints her fatigue has improved quite a bit since IV iron denies any s/s of bleeding, no dark stools continues on aspirin, will re-start plavix today - Physical Exam ECOG PS: 0 General : patient is alert and oriented to person place and time, no acute distress. Neck: no JVD or thyromegaly. Lymph: no cervical, supraclavicular, axillary adenopathy. Heart: regular rate and rhythm no murmurs rubs or gallops. Abdomen: soft nontender nondistended, no hepatosplenomegaly. Lungs: clear to auscultation bilaterally. No wheezes, rales, rhonchi. Extremities: no clubbing cyanosis. - Time with Patient Coordination of Care & Counseling Time: Greater than 50% of time spent with patient was for coordination of care (as documented) and [id number] counseling of patient and/or family. [facility] - Medical History Medical History: Medical History (Last Reviewed 06/30/21 @ 07:23 by Sydni Moon RN) Diabetes Hyperlipidemia Hypertension Iron deficiency anemia Mini stroke - Surgical History Surgical History: Surgical History (Last Reviewed 06/30/21 @ 07:23 by Sydni Moon RN) History of appendectomy History of partial thyroidectomy History of tonsillectomy - Family History Family History: Family History (Last Reviewed 06/30/21 @ 07:23 by Sydni Moon RN) Father Bladder cancer Mother Diabetes - Social History Smoking Status: Former smoker Tobacco Type: cigarettes Substance Use Type: None Additional Data - Additional Objective Data Height/Weight: Height 5 ft Weight 66.088 kg Vital Signs: 08/09/21 14:46 Temperature 98 F Pulse Rate [Right Brachial] 62 Respiratory Rate 20 Blood Pressure [Right Arm] 182/67 H 02 Sat by Pulse Oximetry 97 - Lab Results Diagram of Most Recent CBC and CMP 07/09/21 12:44 07/09/21 12:44 - Home Medications and Allergies Allergies/Adverse Reactions: Allergies Penicillins Allergy (Verified 06/28/21 13:00) Unknown Reaction Home Medications: Home Medications amlodipine 5 mg tablet 5 mg PO DAILY 06/08/21 [History Confirmed 08/09/21] aspirin 81 mg tablet,delayed release 81 mg PO DAILY 06/08/21 [History Confirmed 08/09/21] atorvastatin 10 mg tablet 10 mg PO DAILY 06/08/21 [History Confirmed 08/09/21] clopidogrel 75 mg tablet 75 mg PO DAILY 06/08/21 [History Confirmed 08/09/21] famotidine 10 mg tablet 10 mg PO DAILY 06/08/21 [History Confirmed 08/09/21] gabapentin 100 mg capsule 100 mg PO BID 06/08/21 [History Confirmed 08/09/21] glipizide 10 mg tablet 10 mg PO BID 06/08/21 [History Confirmed 08/09/21] losartan 100 mg tablet 100 mg PO DAILY 06/08/21 [History Confirmed 08/09/21] polysaccharide iron complex 150 mg iron capsule (iFerex 150) 150 mg PO DIRECTED 06/08/21 [History Confirmed 08/09/21] sitagliptin 50 mg-metformin 1,000 mg tablet (Janumet) 1 tab PO BID 06/08/21 [History Confirmed 08/09/21] carvedilol 6.25 mg tablet 6.25 mg PO BID 08/09/21 [History Confirmed 08/09/21] furosemide 20 mg tablet 20 mg PO DAILY 08/09/21 [History Confirmed 08/09/21] Dictated By: Cora Gaming APRN DD/ 1456 Signed By: <Electronically signed by MARY ALICE Gaming> 08/09/21 4642 [facility] Work Phone: [phone]) 780-788701-24-2022 Progress note Author Jose Loyola [facility] July 12, 2021 1:33pm Note Date/Time July 12, 2021 1 :24pm [facility] at [address] [address] Hem/Onc Follow Up Note - OP Signed Patient: Maame Velasco MR#: [id number] : 1945 Acct:[id number] Age/Sex: 75 / F Type: REG RCR Copies to: DO Bela Calderon MD~ Date of Service: 07/12/2021 Time of Service: 13:21 - Assessment & Plan (1) Iron deficiency anemia Plan: blood loss anemia She was very iron deficient during her hospitalization in late May 2021. She was repleted with 3 bags of IV iron Venofer 300 mg and tolerated it well. Her hemoglobin is recovering quickly and I will keep a close eye on her iron studies. She has capsule endoscopy upcoming. 2 EGDs and colonoscopy in late 2020 were unrevealing for source of bleeding. There was a small nonbleeding AVM in her first EGD noted by Dr. Epps. No evidence of hemolysis. I have instructed her to avoid oral iron for now as this causes significant GI complaints and would mask recurrence of her melena. Restarted her aspirin at last visit every other day. will restart full dose now. will add back her plavix at next visit. Follow Up Instructions: send to Dr. De Paz for elevated BP. has one more dose iv iron already scheduled at [place]. . check cbc, cmp, iron, ferritin, iron saturation prior to f/u. - History of Present Illness Chief Complaint: Patient is here for a 2 week follow up. She got iron last Monday at [place]. She states she will get another dose this coming Monday. HPI: 75-year-old female with a history of anemia previously followed by [facility]. She presented to the emergency room on 2020 with melena weakness and fatigue. Preceding this she had about 7 weeks of melena and had required a few units of blood as an outpatient. She had been referred to Dr. Epps. She had had an EGD and colonoscopy by Dr. Epps on 06/08/2021 and a small bleeding vessel was cauterized and her upper endoscopy. Her colonoscopy was completely normal. She has past medical history She was on aspirin and plavix since she had 3 mini strokes in 2018 or 2019. She also has a history of thyroidectomy, type 2 diabetes, hypertension, hyperlipidemia. She quit smoking in her 50s. She does not drink alcohol. During her hospitalization she had a tagged red blood cell scan which was unrevealing and repeat EGD which was also unrevealing and June 13, 2021. During her hospitalization she received 2 bags of Venofer 300 mg and a third upon discharge. She did not have any evidence of hemolysis. She was dischargedwithout aspirin and Plavix and has not noted black or bloody stool since. she is very nervous to be off of aspirin and plavix since her hospitalization discharge around 06/16/21. she has capsule endoscopy upcoming with Dr. Epps. 07/12/20 She was at [facility] and got venofer. She got premedication with a steroid because she had a slight reaction to her venofer in the hospital. She did fine when she got the iron with the premedications. She had her iron at [place] and then came here to get labs from [facility] on the same day. her hb 12.8. no black or bloody stools. She had capsule endoscopy results with no evidence of bleeding. - Physical Exam ECOG PS: 0 General : patient is alert and oriented to person place and time, no acute distress. Neck: no JVD or thyromegaly. Lymph: no cervical, supraclavicular, axillary adenopathy. Heart: regular rate and rhythm no murmurs rubs or gallops. Abdomen: soft nontender nondistended, no hepatosplenomegaly. Lungs: clear to auscultation bilaterally. No wheezes, rales, rhonchi. Extremities: no clubbing cyanosis. - Time with Patient Coordination of Care & Counseling Time: Greater than 50% of time spent with patient was for coordination of care (as documented) and [id number] counseling of patient and/or family. [facility] - Medical History Medical History: Medical History (Last Reviewed 06/30/21 @ 07:23 by Sydni Moon RN) Diabetes Hyperlipidemia Hypertension Iron deficiency anemia Mini stroke - Surgical History Surgical History: Surgical History (Last Reviewed 06/30/21 @ 07:23 by Sydni Moon RN) History of appendectomy History of partial thyroidectomy History of tonsillectomy - Family History Family History: Family History (Last Reviewed 06/30/21 @ 07:23 by Sydni Moon RN) Father Bladder cancer Mother Diabetes - Social History Smoking Status: Former smoker Tobacco Type: cigarettes Substance Use Type: None Additional Data - Additional Objective Data Height/Weight: Height 5 ft Weight 66.224 kg Vital Signs: 07/12/21 13:02 Temperature 97.8 F Pulse Rate [Right Brachial] 96 H Respiratory Rate 20 Blood Pressure [Right Arm] 184/72 H 02 Sat by Pulse Oximetry 98 - Lab Results Diagram of Most Recent CBC and CMP 07/09/21 12:44 07/09/21 12:44 Labs - Last 7 Days 07/09/21 12:44: Ferritin 92 07/09/21 12:44: PHA Creatinine Clear 51.73, Sodium 135 L, Potassium 4.5, Chloride 99, Carbon Dioxide 23.6, BUN 12, Creatinine 0.75, Est GFR ( Amer) > 60, Est GFR (Non-Af Amer) > 60, Glucose 253 H, Calcium 10.4 H, Iron 516 H, TIBC 399, Iron Saturation 1.3 L, Transferrin 285, Ferritin Sent to ref lab L,Total Bilirubin 0.7, AST 20, ALT 30, Alkaline Phosphatase 121 H, Total Protein 6.6, Albumin 4.1, Globulin 2.5, Albumin/Globulin Ratio 1.6 07/09/21 12:44: Corrected WBC 8.2, Uncorrected WBC Count 8.2, RBC 4.59, Hgb 12.8, Hct 38.7, MCV 84.4, MCH 27.9, MCHC 33.0, RDW 22.2 H, Plt Count 241, MPV 9.5, Neut % (Auto) 85.3, Lymph % (Auto) 12.3, [place] % (Auto) 1.7, Eos % (Auto) 0.3, Baso % (Auto) 0.4, Neut # (Auto) 7.0, Lymph # (Auto) 1.0, [place] # (Auto) 0.1, Eos # (Auto) 0.0, Baso # (Auto) 0.0, Nucleated RBC % (auto) 0.1, Platelet Estimate Normal, Plt Morphology Comment Normal, RBC Morphology N/A, Hypochromasia Slight, Poikilocytosis Slight, Anisocytosis Moderate, Ovalocytes Slight - Home Medications and Allergies Allergies/Adverse Reactions: Allergies Penicillins Allergy (Verified 06/28/21 13:00) Unknown Reaction Home Medications: Home Medications amlodipine 5 mg tablet 5 mg PO DAILY 06/08/21 [History Confirmed 07/12/21] aspirin 81 mg tablet,delayed release 81 mg PO DAILY 06/08/21 [History Confirmed 07/12/21] atorvastatin 10 mg tablet 10 mg PO DAILY 06/08/21 [History Confirmed 07/12/21] clopidogrel 75 mg tablet 75 mg PO DAILY 06/08/21 [History Confirmed 07/12/21] famotidine 10 mg tablet 10 mg PO DAILY 06/08/21 [History Confirmed 07/12/21] gabapentin 100 mg capsule 100 mg PO BID 06/08/21 [History Confirmed 07/12/21] glipizide 10 mg tablet 10 mg PO BID 06/08/21 [History Confirmed 07/12/21] losartan 100 mg tablet 100 mg PO DAILY 06/08/21 [History Confirmed 07/12/21] polysaccharide iron complex 150 mg iron capsule (iFerex 150) 150 mg PO DIRECTED 06/08/21 [History Confirmed 07/12/21] sitagliptin 50 mg-metformin 1,000 mg tablet (Janumet) 1 tab PO BID 06/08/21 [History Confirmed 07/12/21] Dictated By: Jose Loyola II, DO DD/ 1321 Signed By: <Electronically signed by Jose Loyola II, DO> 07/12/21 1333 [facility] Work Phone: [phone]) 455-255501-10-2022 Progress note Author Jose Loyola [facility] June 28, 2021 3:36pm Note Date/Time June 28, 2021 1 :28pm [facility] at [address] [address] Hem/Onc Follow Up Note - OP Signed Patient: Maame Velasco MR#: [id number] : 1945 Acct:[id number] Age/Sex: 75 / F Type: REG RCR Copies to: Ramin De PazDO Bela Allison MD~ Date of Service: 06/28/2021 Time of Service: 13:20 - Assessment & Plan (1) Iron deficiency anemia Plan: blood loss anemia She was very iron deficient during her hospitalization in late May 2021. She was repleted with 3 bags of IV iron Venofer 300 mg and tolerated it well. Her hemoglobin is recovering quickly and I will keep a close eye on her iron studies. She has capsule endoscopy upcoming. 2 EGDs and colonoscopy in late 2020 were unrevealing for source of bleeding. There was a small nonbleeding AVM in her first EGD noted by Dr. Epps. No evidence of hemolysis. I have instructed her to avoid oral iron for now as this causes significant GI complaints and would mask recurrence of her melena. I did instruct her that for now she can restart her aspirin but not her Plavix. I will follow-up with her in a few weeks and we will discuss restarting her Plavix. Follow Up Instructions: check today cbc, cmp, iron, ferritin, iron saturation, f/u in 2 wks with repeat labs day or two prior. plan restart ASA daily 81 mg. make sure results of capsule endoscopy available at f/u if resulted to be done next week. - History of Present Illness Chief Complaint: Patient is here for an inpatient follow up for iron deficiency anemia. She was last seen at [facility] 06/15/21 while inpatient. Patient has questions about resuming Plavix and Aspirin. No other concerns voiced at this time. HPI: 75-year-old female with a history of anemia previously followed by [facility]. She presented to the emergency room on 2020 with melena weakness and fatigue. Preceding this she had about 7 weeks of melena and had required a few units of blood as an outpatient. She had been referred to Dr. Epps. She had had an EGD and colonoscopy by Dr. Epps on 06/08/2021 and a small bleeding vessel was cauterized and her upper endoscopy. Her colonoscopy was completely normal. She has past medical history She was on aspirin and plavix since she had 3 mini strokes in 2018 or 2019. She also has a history of thyroidectomy, type 2 diabetes, hypertension, hyperlipidemia. She quit smoking in her 50s. She does not drink alcohol. During her hospitalization she had a tagged red blood cell scan which was unrevealing and repeat EGD which was also unrevealing and June 13, 2021. During her hospitalization she received 2 bags of Venofer 300 mg and a third upon discharge. She did not have any evidence of hemolysis. She was dischargedwithout aspirin and Plavix and has not noted black or bloody stool since. she is very nervous to be off of aspirin and plavix since her hospitalization discharge around 06/16/21. she has capsule endoscopy upcoming with Dr. Epps. - Physical Exam ECOG PS: 0 General : patient is alert and oriented to person place and time, no acute distress. Neck: no JVD or thyromegaly. Lymph: no cervical, supraclavicular, axillary adenopathy. Heart: regular rate and rhythm no murmurs rubs or gallops. Abdomen: soft nontender nondistended, no hepatosplenomegaly. Lungs: clear to auscultation bilaterally. No wheezes, rales, rhonchi. Extremities: no clubbing cyanosis. - Time with Patient Coordination of Care & Counseling Time: Greater than 50% of time spent with patient was for coordination of care (as documented) and [id number] counseling of patient and/or family. [facility] - Medical History Medical History: Medical History (Last Reviewed 06/28/21 @ 13:00 by Deana Chatman) Diabetes Hyperlipidemia Hypertension Iron deficiency anemia Mini stroke - Surgical History Surgical History: Surgical History (Last Reviewed 06/28/21 @ 13:00 by Deana Chatman) History of appendectomy History of partial thyroidectomy History of tonsillectomy - Family History Family History: Family History (Last Reviewed 06/28/21 @ 13:00 by Deana Chatman) Father Bladder cancer Mother Diabetes - Social History Smoking Status: Former smoker Tobacco Type: cigarettes Substance Use Type: None Additional Data - Additional Objective Data Height/Weight: Height 5 ft Weight 66.587 kg Vital Signs: 06/28/21 13:01 Temperature 97.8 F Pulse Rate [Right Brachial] 74 Respiratory Rate 20 Blood Pressure [Right Arm] 166/82 H 02 Sat by Pulse Oximetry 99 - Home Medications and Allergies Allergies/Adverse Reactions: Allergies Penicillins Allergy (Verified 06/28/21 13:00) Unknown Reaction Home Medications: Home Medications amlodipine 5 mg tablet 5 mg PO DAILY 06/08/21 [History Confirmed 06/28/21] aspirin 81 mg tablet,delayed release 81 mg PO DAILY 06/08/21 [History Confirmed 06/08/21] atorvastatin 10 mg tablet 10 mg PO DAILY 06/08/21 [History Confirmed 06/28/21] clopidogrel 75 mg tablet 75 mg PO DAILY 06/08/21 [History Confirmed 06/08/21] famotidine 10 mg tablet 10 mg PO DAILY 06/08/21 [History Confirmed 06/28/21] gabapentin 100 mg capsule 100 mg PO BID 06/08/21 [History Confirmed 06/28/21] glipizide 10 mg tablet 10 mg PO BID 06/08/21 [History Confirmed 06/28/21] losartan 100 mg tablet 100 mg PO DAILY 06/08/21 [History Confirmed 06/28/21] polysaccharide iron complex 150 mg iron capsule (iFerex 150) 150 mg PO DIRECTED 06/08/21 [History Confirmed 06/28/21] sitagliptin 50 mg-metformin 1,000 mg tablet (Janumet) 1 tab PO BID 06/08/21 [History Confirmed 06/28/21] Dictated By: Jose Loyola II, DO DD/ 1320 Signed By: <Electronically signed by Jose Loyola II, DO> 06/28/21 1536 [facility] Work Phone: [phone]) [phone] Evaluation note* Encounter Date Diagnosis Assessment Notes Treatment Notes Treatment Clinical Notes Jun, Iron deficiency anemia (ICD-10 - D50.9) PROCEED WITH CAPSULE ENDOSCOPY Jun, Gastric AVM (ICD-10 - K31.819) [facility] [employer] Other Evaluation note* Diagnosis Onset Date Resolution Status Iron deficiency anemia acute [facility] Work Phone: Evaluation noteNo [facility] [employer] Other Evaluation note* Diagnosis Onset Date Resolution Status CKD (chronic kidney disease) stage 3, GFR 30-59 ml/min acute Hypercalcemia acute Hypertension acute Iron deficiency anemia acute [facility] Work Phone: History general Narrative - Reported* Type Description Date Medical History DM II Medical History hyperlipidemia Medical History HTN Medical History GERD Medical History mini stroke [employer] Other History general Narrative - Reported* Type Description Date Medical History AVM (arteriovenous malformation) of stomach, acquired Medical History Chronic gastritis Medical History Pernicious anemia Medical History Type 2 diabetes staci itus with hyperglycemia, without long-term current use of insulin Medical History Hypercalcemia Medical History Hyperlipidemia type II Medical History Cerebral atherosclerosis Medical History Iron deficiency anemia due to ch ronic blood loss Medical History Gastroesophageal ref lux disease with esophagitis without hemorrhage Medical History Essential hypertension Medical History Type 2 diabetes staci itus with diabetic polyneuropathy, without long-term current use of insulin Medical History Menopause Medical History Pyuria Medical History Lumbar spondylosis Medical History Cerebrovascular disease Medical History Hemiparesis of right dominant side, unspecified hemiparesis etiology Medical History Vitamin D deficiency Medical History Acute left-sided low back pain w ithout sciatica Medical History Thyroid nodule Medical History Body mass index (BMI) of 25.0 to 29.9 Medical History Nicotine dependence, cigarettes, in remission Medical History Post herpetic neuralgia Medical History Pulmonary nodule Medical History Patent foramen ovale Medical History Chronic venous insufficiency of lower extremity Medical History Elevated cholesterol Surgical History EGD 05/2021 Surgical History COLONOSCOPY Surgical History THYROIDECTOMY, PARTI AL, WITH NERVE MONITORING BY PHYSICIAN 11/2020 Surgical History THYROID FNA 05/2020 Surgical History THYROID FNA 03/2019 Surgical History ENDOMETRIAL BX 07/2006 Hospitalization History SEE SURGICAL HX [employer] Other [facility] general Narrative - Reported* Type Description Date Medical History AVM (arteriovenous malformation) of stomach, acquired Medical History Chronic gastritis Medical History Pernicious anemia Medical History Type 2 diabetes staci itus with hyperglycemia, without long-term current use of insulin Medical History Hypercalcemia Medical History Hyperlipidemia type II Medical History Cerebral atherosclerosis Medical History Iron deficiency anemia due to ch ronic blood loss Medical History Gastroesophageal ref lux disease with esophagitis without hemorrhage Medical History Essential hypertension Medical History Type 2 diabetes staci itus with diabetic polyneuropathy, without long-term current use of insulin Medical History Menopause Medical History Pyuria Medical History Lumbar spondylosis Medical History Cerebrovascular disease Medical History Hemiparesis of right dominant side, unspecified hemiparesis etiology Medical History Vitamin D deficiency Medical History Acute left-sided low back pain w ithout sciatica Medical History Thyroid nodule Medical History Body mass index (BMI) of 25.0 to 29.9 Medical History Nicotine dependence, cigarettes, in remission Medical History Post herpetic neuralgia Medical History Pulmonary nodule Medical History Patent foramen ovale Medical History Chronic venous insufficiency of lower extremity Medical History Elevated cholesterol Medical History CKD Surgical History EGD 05/2021 Surgical History COLONOSCOPY Surgical History THYROIDECTOMY, PARTI AL, WITH NERVE MONITORING BY PHYSICIAN 11/2020 Surgical History THYROID FNA 05/2020 Surgical History THYROID FNA 03/2019 Surgical History ENDOMETRIAL BX 07/2006 Hospitalization History SEE SURGICAL HX [employer] Other Progress note Author Jose Loyola [facility] January 13, 2023 11:29am Note Date/Time January 13, 2023 11:2 2am [facility] at [address] [address] Hem/Onc Follow Up Note - OP Signed Patient: Maame Velasco MR#: [id number] : 1945 Acct:[id number] Age/Sex: 77 / F Type: REG RCR Copies to: DO Bela Calderon MD~ Date of Service: 01/13/2023 Time of Service: 11:20 - Assessment & Plan (1) Iron deficiency anemia Plan: 1.) Blood loss anemia She was very iron deficient during her hospitalization in late May 2021. She was repleted with 3 bags of IV iron Venofer 300 mg and tolerated it well. --Her hemoglobin and iron have recovered quickly after IV iron repletion. She had capsule endoscopy in Jun 2021 that was normal. 2 EGDs and colonoscopy in late 2020 were unrevealing for source of bleeding. There was a small nonbleeding AVM in her first EGD noted by Dr. Epps. --No evidence of hemolysis. no paraproteins noted. She restarted her aspirin Jun 2021 and in Jul 2021 restarted her plavix. recurrent iron deficiency in december 2022, Anemia again. will replete IV. She does not absorb oral iron well. SHE HAS NOT TOLERATED ORAL IRON IN THE PAST although we will dry every other daydosing. 2.) Hypertension - follows regularly with PCP 3.) Hypercalcemia - asymptomatic, consistent mild elevation of calcium l - normal PTH in December 2021 with relatively normal Vitamin D level - due to mild - moderate CKD - negative paraprotiens. 4.) CKD - GFR - 40 - 50 range - f/u PCP (2) Hypertension (3) Hypercalcemia (4) CKD (chronic kidney disease) stage 3, GFR 30-59 ml/min Follow Up Instructions: iv iron x 3 doses. stat oral iron every other day. f/u in 1 year. cbc, cmp, iron studies in 6 months and prior to f/u in 1 year. - History of Present Illness Chief Complaint: patient is here or a 6 month follow up with labs for review. Noconcenrs voiced at this time. HPI: 75-year-old female with a history of anemia previously followed by [facility]. She presented to the emergency room on 2020 with melena weakness and fatigue. Preceding this she had about 7 weeks of melena and had required a few units of blood as an outpatient. She had been referred to Dr. Epps. She had had an EGD and colonoscopy by Dr. Epps on 06/08/2021 and a small bleeding vessel was cauterized and her upper endoscopy. Her colonoscopy was completely normal. She has past medical history She was on aspirin and plavix since she had 3 mini strokes in 2018 or 2019. She also has a history of thyroidectomy, type 2 diabetes, hypertension, hyperlipidemia. She quit smoking in her 50s. She does not drink alcohol. During her hospitalization she had a tagged red blood cell scan which was unrevealing and repeat EGD which was also unrevealing and June 13, 2021. During her hospitalization she received 2 bags of Venofer 300 mg and a third upon discharge. She did not have any evidence of hemolysis. She was dischargedwithout aspirin and Plavix and has not noted black or bloody stool since. she is very nervous to be off of aspirin and plavix since her hospitalization discharge around 06/16/21. she has capsule endoscopy upcoming with Dr. Epps. 07/12/20 She was at [facility] and got venofer. She got premedication with a steroid because she had a slight reaction to her venofer in the hospital. She did fine when she got the iron with the premedications. She had her iron at [place] and then came here to get labs from [facility] on the same day. her hb 12.8. no black or bloody stools. She had capsule endoscopy results with no evidence of bleeding. 08/09/21 she feels well today and is without new complaints her fatigue has improved quite a bit since IV iron denies any s/s of bleeding, no dark stools continues on aspirin, will re-start plavix today 09/13/21 She is doing well. no iv iron sice her dosing in jun. her iron sat recently 17%, low normal ferritin, hb 13.6. Not eating ice popcorn currently. tolerating plavix and aspirin well. 07/14/2022: Patient is here for interval 6 month follow up with labs. No IV iron x 1 year; last infusion was in June 2021 Clinically, she is doing well Reports she feels good Denies excessive fatigue, chest pain, SOB, weight loss, palpitations, leg cramping or PICA She is no longer eating popcorn by the bagfuls Hgb- 12.4; Iron saturation - 19.3%; ferritin- 53.8 Calcium - 10.6; patient is no longer taking supplemental calcium No bony pain or other constitutional symptoms 01/13/23 she is doing ok. her hb is a bit low, iron saturation 17%. she not taking a iron pill. hb 11.7. she is frustrated from so many doctor visits and conflicting discussion. her is melissa fernandez, he now follows with Dr. Grace at [facility]. - Physical Exam ECOG PS: 0 General : patient is alert and oriented to person place and time, no acute distress. Neck: no JVD or thyromegaly. Lymph: no cervical, supraclavicular, axillary adenopathy. Heart: regular rate and rhythm no murmurs rubs or gallops. Abdomen: soft nontender nondistended, no hepatosplenomegaly. Lungs: clear to auscultation bilaterally. No wheezes, rales, rhonchi. Extremities: no clubbing cyanosis. - Time with Patient Coordination of Care & Counseling Time: Greater than 50% of time spent with patient was for coordination of care (as documented) and [id number] counseling of patient and/or family. [facility] - Medical History Medical History: Medical History (Last Reviewed 06/30/21 @ 07:23 by Sydni Moon RN) Diabetes Hyperlipidemia Hypertension Iron deficiency anemia Mini stroke - Surgical History Surgical History: Surgical History (Last Reviewed 06/30/21 @ 07:23 by Sydni Moon RN) History of appendectomy History of partial thyroidectomy History of tonsillectomy - Family History Family History: Family History (Last Reviewed 06/30/21 @ 07:23 by Sydni Moon RN) Father Bladder cancer Mother Diabetes - Social History Smoking Status: Former smoker Tobacco Type: cigarettes Substance Use Type: None Additional Data - Additional Objective Data Height/Weight: Height 5 ft Weight 64.229 kg Vital Signs: 01/13/23 11:01 Temperature 97.6 F Pulse Rate [Right Brachial] 58 L Respiratory Rate 20 Blood Pressure [Right Arm] 183/75 H 02 Sat by Pulse Oximetry 97 Oxygen Delivery Method Room Air - Lab Results Diagram of Most Recent CBC and CMP 01/10/23 11:52 01/10/23 11:52 Labs - Last 7 Days 01/10/23 11:52: Serum Total Protein 6.9, Albumin (Send Out) 3.8, Globulin (PEP) 3.1, Albumin/Globulin (PEP) 1.2, Gadxs-9-Glaxokigb 0.3, Sehfs-1-Pfwmhuxgk 1.1 H,Beta Globulins 0.9, Gamma Globulins 0.9, M-Gabriel Comment:, PEP Note , IgG 826, IgA 60 L, IgM 61, Serum Immunofixation Comment:, [place] LC, Quant 42.6 H, Free [place] LC, Quant 19.4, [place]/Lambda Ratio 2.20 H 01/10/23 11:52: PHA Creatinine Clear 35.85, Sodium 138, Potassium 4.8, Chloride 103, Carbon Dioxide 28.9, Anion Gap 10.9, BUN 20, Creatinine 1.09, Est GFR (CKD-EPI) 52.323, Glucose 170 H, Calcium 10.6 H, Iron 63, TIBC 357, Iron Saturation 17.6 L, Transferrin 255, Ferritin 23.3, Total Bilirubin 0.4, AST 14, ALT 14, Alkaline Phosphatase 86, Total Protein 6.9, Albumin 4.6, Globulin 2.3, Albumin/Globulin Ratio 2.0 01/10/23 11:52: Corrected WBC 8.5, Uncorrected WBC Count 8.5, RBC 4.11, Hgb 11.7L, Hct 35.4, MCV 86.3, MCH 28.6, MCHC 33.1, RDW 13.7, Plt Count 231, MPV 9.6, Neut % (Auto) 62.3, Lymph % (Auto) 25.3, [place] % (Auto) 8.6, Eos % (Auto) 3.1, Baso % (Auto) 0.7, Nucleat RBC Rel Count 0.1, Neut # (Auto) 5.3, Lymph # (Auto) 2.2, [place] # (Auto) 0.7, Eos # (Auto) 0.3, Baso # (Auto) 0.1 - Home Medications and Allergies Allergies/Adverse Reactions: Allergies Penicillins Allergy (Verified 06/28/21 13:00) Unknown Reaction Home Medications: Home Medications amlodipine 5 mg tablet 5 mg PO DAILY 06/08/21 [History Confirmed 01/13/23] aspirin 81 mg tablet,delayed release 81 mg PO DAILY 06/08/21 [History Confirmed 01/13/23] atorvastatin 10 mg tablet 10 mg PO DAILY 06/08/21 [History Confirmed 01/13/23] clopidogrel 75 mg tablet 75 mg PO DAILY 06/08/21 [History Confirmed 01/13/23] famotidine 10 mg tablet 10 mg PO DAILY 06/08/21 [History Confirmed 01/13/23] gabapentin 100 mg capsule 100 mg PO BID 06/08/21 [History Confirmed 01/13/23] glipizide 10 mg tablet 10 mg PO BID 06/08/21 [History Confirmed 01/13/23] losartan 100 mg tablet 100 mg PO DAILY 06/08/21 [History Confirmed 01/13/23] sitagliptin phosphate 50 mg-metformin 1,000 mg tablet (Janumet) 1 tab PO DAILY 06/08/21 [History Confirmed 01/13/23] carvedilol 6.25 mg tablet 6.25 mg PO BID 08/09/21 [History Confirmed 01/13/23] furosemide 20 mg tablet 20 mg PO DIRECTED 08/09/21 [History Confirmed 01/13/23] cholecalciferol (vitamin D3) 50 mcg (2,000 unit) capsule 2,000 unit PO DAILY 07/14/22 [History Confirmed 01/13/23] Dictated By: Jose Loyola II, DO DD/ 1120 Signed By: <Electronically signed by Jose Loyola II, DO> 01/13/23 1120 [facility] Work Phone: Summary Purpose Family History Relationship Condition Age at Onset Recorded Date/T jesus alberto father Malignant neoplasm of urinary bladder Unk nown Not Specified Diabetes mellitus Unknown Advance Directives Advance Directive Response Recorded Date/ Time Advance Directives No May 12:07pm Advance Directive Response Recorded Date/ Time Advance Directives No May 11:07am Chief Complaint and Reason for Visit Chief Complaint Iron deficiency anem ia w/ GI blood loss Reason for Visit Iron deficiency anem ia Chief Complaint Iron deficiency anem ia w/ GI blood loss E11.42 Reason for Visit Iron deficiency anem ia Chief Complaint E11.42 Iron deficiency anemia w/ GI blood loss Reason for Visit Iron deficiency anem ia Chief Complaint Iron deficiency anem ia w/ GI blood loss Reason for Visit CKD (chronic kidney disease) stage 3, GFR 30-59 ml/min Hypercalcemia Hypertension Iron deficiency anemia Chief Complaint 3 Month Follow Up Iron deficiency anemia w/ GI blood loss Reason for Visit CKD (chronic kidney disease) stage 3, GFR 30-59 ml/min Hypercalcemia Hypertension Iron deficiency anemia Additional Source Comments INFORMATION SOURCE (unrecogn ized section and content) DATE CREATED AUTHOR 10/05/2018 [facility] DATE CREATED AUTHOR AUTHOR'S ORGANIZ ATION 06/10/2022 [facility] DATE CREATED AUTHOR AUTHOR'S ORGANIZ ATION 07/22/2023 [facility] Source Comments (unrecognize d section and content) In the event this informatio n is protected by the Federal Confidentiality of Alcohol and Drug Abuse Patient Records regulations: The Federal rules restrict any use of the information to criminally investigate or prosecute any alcohol or drug abuse patient.[facility] Care Teams (unrecognized sec tion and content) Team Status: Active Member Role Status Dates Ramin De Paz DO Primary Care Provider Active Team Status: Inactive Member Role Status Dates Ramin De Paz DO Attending Provider Active Sta rt: June 27, 2023 End: June 27, 2023 Team Status: Active Member Role Status Dates Ramin De Paz DO Primary Care Provider Active Start: July 13, 2023 Jose Loyola II, Attending Provider Active Start: July 13, 2023 Bela Allison MD Referring Provider Active Star t: July 13, 2023 Cora Gaming APRN Active Start: July 13, 2023 Team Status: Inactive Member Role Status Dates Ramin De Paz DO Primary Care Provide r, Attending Provider Active Start: July 13, 2023 End: July 13, 2023 Team Status: Active Member Role Status Dates Ramin De Paz DO Primary Care Provider Active Jose Loyola II, Attending Provider Active Bela Allison MD Referring Provider Active Cora Gaming APRN Active Plasma Table Operator Relationship Specialty Start Date End Date Ramin De Paz DO [address] [place] [address] PCP - General Internal Medicine 05/03/21 Team Status: Active Member Role Status Dates Ramin De Paz DO Primary Care Provider Active Jose Loyola II, Active Bela Allison MD Referring Provider Active Cora Gaming APRN Attending Provider Acti ve Team Status: Inactive Member Role Status Dates Ramin De Paz DO Primary Care Provider, Attending Pr ovider Active REASON FOR VISIT (unrecogniz ed section and content) PATIENT HERE FOR FOLLOW UP E GD & COLONOSCOPY3 MONTH FOLLOW OTI42Pe InformationB- 12 ShotNo InformationNo InformationWellnessNo InformationNo InformationNo InformationB-12 Shot3 month Follow [id number] Shot3 month Follow upNo InformationNo [id number] results Goals (unrecognized section and content) Goals may be documented in a n alternate section FOR RECORDS PERTAINING TO PATIENTS WHO ARE OR HAVE BEEN ENROLLED IN A CHEMICAL DEPENDENCY/SUBSTANCEABUSE PROGRAM, SOME INFORMATION MAY BE OMITTED. This clinical summary was aggregated from multiple sources. Caution should be exercised in using it in the provision of clinical care. This summary normalizes information from multiple sources, and as a consequence, information in this document may materially change the coding, format and clinical context of patient data. In addition, data may be omitted in some cases. CLINICAL DECISIONS SHOULD BE BASED ON THE PRIMARY CLINICAL RECORDS. [facility] [employer] [facility]. provides no warranty or guarantee of the accuracy or completeness of information in this document.
== END 2023-08-02 13:26 | disposition home or self-care (01) ==
LOC: PST 13:26
PROVIDERS: PCP Internal Medicine; Visit Provider Internal Medicine
DX: R91.8 Other nonspecific abnormal finding of lung field (principal)

== ENCOUNTER 2023-08-09 10:58 | Day surgery (SDC) | payer MEDICARE, SELFPAY ==
[2023-08-02 14:12] VITALS: BP 136/60; PULSE 62; RESP 20; TEMP 36.2; O2SAT 100; BMI 26.3
[2023-08-09] VITALS (11 sets, daily range): BP systolic 127–142; BP diastolic 45–97; PULSE 57–83; RESP 12–41; TEMP 36.4–36.6; O2SAT 94–99; BMI 26.0
--- NOTE | 2023-08-09 | FL_ITS ---
[address] [address] Patient Name: DINO VELASOC MRN: [id number] date: 1945 Sex: F Assigned Patient Location: SURGOUT Current Patient Location: Accession/Order Number: [id number] Exam Date: 08/09/2023 12:07 Report Date: 08/10/2023 10:03 At the request of: GISELLE HUGGINS Procedure: FL fluoroscopy <1hr NON-READ EXAM: FL fluoroscopy <1hr NON-READ HISTORY: TECHNIQUE: FINDINGS: Please see Operative Report. Electronically authenticated by: RADIOLOGIST NO Date: 08/10/2023 10:03
--- OUTSIDE RECORDS SUMMARY | 2023-08-09 11:02 | XMS_ITS | CCD ---
Author Name Unknown Address [address] [place] [address] Organization [facility] Care Team Providers Care Board Winder Name Role Phone GALLEGO, JOSH Admitting Unavailable GALLEGO JOSH Attending Unavailable NEFTALI NEFF Referring Unavailable TARUN, RAMIN Primary Care Unavailable Ramin De Paz DO Primary Care Provider Estuardo Epps Unavailable DO Ramin De Paz Primary Care Provider MD Leo Allison Referring Provider [phone] MARY ALICE Gaming Attending Provider TARUN, DR FAUSTIN Primary Care Unavailable MISC, DR RIVERA Consulting Unavailable MISC, DR RIVERA Attending Unavailable MISC, DR RIVERA Admitting Unavailable NIR, JARRETT Pino Consulting Unavailable BALL, DR FAUSTIN Primary Care Unavailable CRISTIAN, DR LEO Bowman Consulting Unavailable ALLISON, DR LEO Bowman Attending Unavailable ALLISON, DR LEO Bowman Admitting Unavailable BALL, DR FAUSTIN Primary [...] Attending Unavailable BALL, DR FAUSTIN Admitting Unavailable BALL, DR FAUSTIN Primary Care Unavailable ARIAN, DR NEFTALI Payne Consulting Unavailable ARIAN, DR NEFTALI Payne Attending Unavailable ARIAN, DR NEFTALI Payne Admitting Unavailable AHGO, SENDY Consulting Unavailable TARUN, DR FAUSTIN Primary Care Unavailable CRISTIAN, DR LEO Bowman Attending Unavailable LANA, DR JAIR Bowman Consulting Unavailabl e CRISTIAN, DR LEO Bowman Admitting Unavailable CRISTIAN, DR LEO Bowman Consulting Unavailable KING, DR ESTUARDO Subramanian Consulting Unavailable HAY, DR ROSE Consulting Unavailable DENIS, GEO Consulting Unavailable Tarun, DO Faustin Primary Care Provider Nir VILLATORO, DO Jarrett Pino Attending Provider MD Leo Allison Referring Provider DO Ramin De Paz Attending Provider Tarun, DO Faustin Primary Care Provider Nir VILLATORO, DO Jarrett Pino Attending Provider MD Leo Allison Referring Provider [phone] Ramin De Paz Unavailable Tarun, DO Faustin Primary Care Provider Nir VILLATORO, DO Jarrett Pino Attending Provider MD Leo Allison Referring Provider DO Ramin De Paz Primary Care Provider Nir VILLATORO, DO Jarrett Pino Attending Provider MD Leo Allison Referring Provider DO Ramin De Paz Attending Provider Ramin De Paz Admitting Unavailable Ball, Ramin Primary Care Unavailable Tarun, Ramin Attending Unavailable Tarun, Ramin Admitting Unavailable Ball, Ramin Primary Care Unavailable Ramin De Paz Attending Unavailable Nir VILLATORO, Jarrett Pino Attending Unavaila ble Tarun, Ramin Primary Care Unavailable Leo Allison Referring Unavailable Jarrett Loyola II Admitting Unavaila ble Allergies Allergy Classification Reported Allergen(s) Allergy Type Date of Onset Reaction(s) Facility (12 sources) Penicillin Drug Allergy 09-21-19 14 Unknown [facility] (2 sources) Penicillins Drug Allergy 05-04-20 21 Unknown [facility] (20 sources) Sulfamethoxazole / Trimethoprim Drug Allergy 05-04-20 21 Unknown [facility] (20 sources) Penicillin G Benzathine; Translations: [penicillin G benzathine] Drug allergy 06-27-19 Unknown [facility] (10 sources) dulaglutide Drug Allergy TRULICITY Comment:Oscar xt Needs Updated. Senexx Other (11 sources) Penicillin V Drug Allergy 06-27-19 Unknown [facility] (2 sources) patient allergy list reviewed by nurse or physicia Propensity to adverse reactions 06-15-20 Comment:Done Senexx Other (2 sources) Sulfamethoxazole; Translations: [sulfamethoxazole] Drug Allergy 06-27-19 [facility] (2 sources) Trimethoprim; Translations: [trimethoprim] Drug Allergy 06-27-19 [facility] (1 source) Penicillin Drug Allergy 06-27-19 [facility] Repository (1 source) Penicillins Drug allergy (disorder) 06-28-19 [facility] Repository Medications Current Medications Medication Drug Class(es) Dates Sig (Normalized) Sig (Original) amLODIPine 5 mg oral tablet (20 sources) Dihydropyridine Calcium Channel Jefe Start: 06-08-2021 take 5 mg by mouth once daily Amlodipine Active 5 MG PO Daily June 08, 2021 12:00am amLODIPine Benzoate (1 source) amLODIPine Benzoate Active Aspir-81 (19 sources) Aspir-81 Active aspirin 81 mg delayed release oral tablet (7 sources) Platelet Aggregation Inhibitor, Nonsteroidal Anti-inflammatory Drug [...] Dialyvite Vitami n D3 Max 1.25 MG (61200 UT) 1 tablet Orally Active Dialyvite Vitami n D3 Max 1.25 MG (05194 UT) 1 tablet Orally Active cloNIDine hydrochloride [...] Start: 06-08-2021 take 1 tablet by mouth once daily Sitagliptin Phos-Metformin ([place]) 50-1,000 mg tablet Active 1 TAB PO Daily June 08, 2021 12:00am Start: 06-08-2021 take 1 tablet by dick th twice daily Sitagliptin Phos-Metformin ([place]) 50-1,000 mg tablet Active 1 TAB PO Twice daily June 08, 2021 12:00am Janumet Active Completed/Discontinued [...] polysaccharide iron complex 150 mg oral capsule (7 sources) Start: 06-08-2021 End: 07-14-2022 Polysaccharide Iron [...] 06-21-2021 06-28-2021 Episodic Deficiency and other anemia (11 sources) Iron deficiency anemia, unspecified; Translations: [Iron deficiency anemia, unspecified] Onset: 06-17-2021 Resolved: 06-24-2021 Episodic Deficiency and other anemia (20 sources) Pernicious anemia; Translations: [Vitamin B12 deficiency anemia due to intrinsic factor deficiency] Episodic Deficiency and other anemia (9 sources) Vitamin B12 deficiency anemia due to intrinsic factor deficiency Episodic Deficiency and other anemia (5 sources) Anemia; Translations: [Anemia, unspecified] Onset: 08-16-2018 [...] D deficiency] Onset: 06-04-2022 Chronic Nutritional deficiencies (3 sources) Iron deficiency; Translations: [Iron deficiency] 01-13-2023 Episodic Osteoporosis (1 source) Age-related osteoporosis without current pathological fracture; Translations: [AGE-REL OSTEOPOR W/O CURR PATH FX] Onset: 03-17-2022 Chronic Other aftercare (2 sources) Other rat exterminator (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; Translations: [OTH SALES REPRESENTATIVE FACILITY SERVICES CURRENT DRUG THERAPY] Onset: 08-18-2021 Episodic Other [...] Chronic Other nutritional; endocrine; and metabolic disorders (9 sources) Hypercalcemia; Translations: [Hypercalcemia] Onset: 05-31-2022 Chronic [...] and visceral atherosclerosis (17 sources) Atherosclerosis of [place] arteries of extremities with intermittent claudication, left leg; Translations: [Atherosclerosis of [place] artery of left lower extremity with intermittent [...] Resolved: 06-21-2021 Episodic Other aftercare (1 source) exterminator (current) use of aspirin; Translations: [[facility] CURRENT USE OF ASPIRIN] Onset: 08-18-2021 Episodic Other aftercare (1 source) custodial (current) use of antithrombotics/antip latelets; Translations: [SALES REPRESENTATIVE FACILITY SERVICES ANTITHROMBOT/ANTIPLAT LETS] Onset: 06-23-2021 Episodic Other circulatory [...] Test Name Value Interpretation Reference Range Facility Glucose Glucometer (BldC) [M ass/Vol]Ordered By: Ramin De Paz on 08-07-2023 Glucose [Mass/Vol] 244 mg/dL [facility] Comment on above: Random Glucose Refer ence Range is dependent on time and content of last meal. Glucose of more than 200 mg/dL in a nonstressed, ambulatory subject supports the diagnosis of Diabetes Mellitus. Glucose Poct Glucometerson 0 08-07-2023 Glucose [Mass/Vol] 244 mg/dL Normal [facility] Comment on above: Result Comment: [place] Glucose Reference Range is dependent on time and content of last meal. Glucose of more than 200 mg/dL in a nonstressed, ambulatory subject supports the diagnosis of Diabetes Mellitus. PERFORMED BY: [address] [place] [address] PATHOLOGIST E LEARNING DEVELOPER RACHELLE MACDONALD M.D. Performed By: #### G LUSURINDER #### Point of Care testing , Laboratory - Hematology and Cell countson 08-01-2023 ESR (Bld) [Velocity] 34 mm/h <=30 [facility] No Panel Informationon 08-01 Anti-Double Strand DNA Antibody 10 [IU]/mL 0-9 [facility] Comment on above: Negative <5 Equivoca l 5 - 9 Positive >9 Anti-Nuclear Antibody Interpret Comment . [facility] Comment on above: Autoantibody Disease Association Condition Frequency ---------Antinuclear Antibody, SLE, mixed connectiveDirect (YUDI-D) tissue diseases ---------dsDNA SLE 40 - 60% ---------Chromatin Drug induced SLE 90% SLE 48 - 97% ---------SSA (Ro) SLE 25 - 35% Sjogren's Syndrome 40 - 70% Lupus 100% ---------SSB (La) SLE 10% Sjogren's Syndrome 30% ---------Sm (anti-Neff) SLE 15 - 30% ---------SPANISH TUTOR Mixed Connective Tissue Disease 95%(U1 nRNP, SLE 30 - 50%anti-ribonucleoprotein) Polymyositis and/or Dermatomyositis 20% ---------Scl-70 (antiDNA Scleroderma (diffuse) 20 - 35%topoisomerase) Crest 13% ---------Kemi-1 Polymyositis and/or Dermatomyositis 20 - 40% ---------Centromere B Scleroderma - Crest variant 80%Performed at: [place] [address] [id number] Director: Rio Huber PhD, Phone: [phone] SPANISH TUTOR Antibody <0.2 AI 0.0-0.9 [facility] Serum Sjogrens syndrome-A ex tractable nuclear antibody assay (units/volume)on 08-01-2023 Sjogrens syndrome-A extractable nuclear Ab Qn (S) <0.2 AI 0.0-0.9 [facility] Serum Sjogrens syndrome-B ex tractable nuclear antibody assay (units/volume)on 08-01-2023 Sjogrens syndrome-B extractable nuclear Ab Qn (S) <0.2 AI 0.0-0.9 [facility] Serum Neff extractable nucl ear antigen (DEBBIE) antibody assay (units/volume)on 08-01-2023 Neff extractable nuclear Ab Qn (S) <0.2 AI 0.0-0.9 [facility] Serum angiotensin converting enzyme (KORIN) measurementon 08-01-2023 Angiotensin converting enzyme [Catalytic activity/Vol] 59 U/L 14-82 [facility] Serum or plasma cyclic adeno sine monophosphate measurement (moles/volume)on 08-01-2023 Adenosine monophosphate.cyclic [Moles/Vol] 5 units 0-19 [facility] Comment on above: Negative <20 Weak po sitive 20 - 39 Moderate positive 40 - 59 Strong positive >59 Serum or plasma free cefurox jesus alberto measurement (mass/volume)on 08-01-2023 Cefuroxime free [Mass/Vol] Positive Negative [facility] Serum or plasma rheumatoid f actor measurement (units/volume)on 08-01-2023 Rheumatoid factor Qn [IU]/mL <14.0 [facility] Comment on above: Performed at: [address] [id number] Director: Rio Huber PhD, Phone: [phone] A1C with Estimated Average G ahsan 07-13-2023 Glucose [Mass/Vol] 232 mg/dL Normal [facility] Comment on above: Result Comment: PERF ORMED BY: [place] [address] PATHOLOGIST E LEARNING DEVELOPER RACHELLE MACDONALD M.D. Performed By: #### K APPA, ABDELRAHMAN SERUM, SPE #### [facility] , #### TIM, CBC, CMP, FE and TIBC #### [address] HbA1c (Bld) [Mass fraction] 9.7 % High 4.3-5.6 [facility] Comment on above: Result Comment: Incr eased risk for diabetes: 5.7 - 6.4 diabetes: >6.4 glycemic control for adults with diabetes: <7.0 Performed By: #### K APPA, ABDELRAHMAN SERUM, SPE #### [facility] , #### TIM, CBC, CMP, FE and TIBC #### [facility] [address] [place] [address] Alanine aminotransferase [En zymatic activity/volume] in Serum or PlasmaOrdered By: Jarrett Loyola on 07-13-2023 ALT [Catalytic activity/Vol] 19 U/L 7-52 [facility] Albumin [Mass/volume] in Ser um or Plasma by Bromocresol green (BCG) dye binding methoOrdered By: Jarrett Loyola on 07-13-2023 Albumin BCG dye [Mass/Vol] 4.2 g/dL 3.5-5.7 [facility] Alkaline phosphatase [Enzyma tic activity/volume] in Serum or PlasmaOrdered By: Jarrett Loyola on 01-25-2024 ALP [Catalytic activity/Vol] 107 U/L 34-104 [facility] Aspartate aminotransferase [ Enzymatic activity/volume] in Serum or PlasmaOrdered By: Jarrett Loyola on 07-13-2023 AST [Catalytic activity/Vol] 15 U/L 13-39 [facility] Basophils Auto (Bld) [#/Vol] Ordered By: Jarrett Loyola on 07-13-2023 Basophils (Bld) [#/Vol] 0.1 10*3/uL 0.0-0.2 [facility] Basophils/100 WBC Auto (Bld) Ordered By: Jarrett Loyola on 07-13-2023 Basophils/100 WBC (Bld) 0.8 % . [facility] Bilirubin.total [Mass/volume ] in Serum or PlasmaOrdered By: Jarrett Loyola on 07-13-2023 Bilirubin [Mass/Vol] 0.5 mg/dL 0.3-1.0 [facility] Calcium [Mass/volume] in Ser um or PlasmaOrdered By: Jarrett Loyola on 07-13-2023 Calcium [Mass/Vol] 10.7 mg/dL 8.6-10.3 [facility] Carbon dioxide, total [Moles /volume] in Serum or PlasmaOrdered By: Jarrett Loyola on 07-13-2023 CO2 [Moles/Vol] 28.9 mmol/L 21.0-31.0 [facility] Chloride [Moles/volume] in S valdo or PlasmaOrdered By: Jarrett Loyola on 07-13-2023 Chloride [Moles/Vol] 101 mmol/L 98-107 [facility] Complete Blood Count Auto Di ffon 07-13-2023 Basophils (Bld) [#/Vol] 0.1 10*3/uL Normal 0.0-0.2 [facility] Comment on above: Result Comment: PERF ORMED BY: [place] [address] PATHOLOGIST E LEARNING DEVELOPER RACHELLE MACDONALD M.D. Performed By: #### F E and TIBC, CBC, CMP, TIM #### [address] Basophils/100 WBC (Bld) 0.8 % Normal . [facility] Comment on above: Performed By: #### F E and TIBC, CBC, CMP, TIM #### [address] Eosinophils (Bld) [#/Vol] 0.2 10*3/uL Normal 0.0-0.45 [facility] Comment on above: Performed By: #### F E and TIBC, CBC, CMP, TIM #### [address] Eosinophils/100 WBC (Bld) 2.5 % Normal . [facility] Comment on above: Performed By: #### F E and TIBC, CBC, CMP, TIM #### [address] Erythrocyte distribution width (RBC) [Ratio] 13.3 % Normal 11.9-15.3 [facility] Comment on above: Performed By: #### F E and TIBC, CBC, CMP, TIM #### [address] Hematocrit (Bld) [Volume fraction] 35.2 % Normal 34.0-46.4 [facility] Comment on above: Performed By: #### F E and TIBC, CBC, CMP, TIM #### [address] Hemoglobin (Bld) [Mass/Vol] 12.0 g/dL Normal 11.8-15.4 [facility] Comment on above: Performed By: #### F E and TIBC, CBC, CMP, TIM #### [place] [address] [place] Lymphocytes (Bld) [#/Vol] 2.2 10*3/uL Normal 1.00-4.8 [facility] Comment on above: Performed By: #### F E and TIBC, CBC, CMP, TIM #### [place] [address] [place] Lymphocytes/100 WBC (Bld) 25.5 % Normal . [facility] Comment on above: Performed By: #### F E and TIBC, CBC, CMP, TIM #### [address] MCH (RBC) [Entitic mass] 29.5 pg Normal 24.7-34.3 [facility] Comment on above: Performed By: #### F E and TIBC, CBC, CMP, TIM #### [address] MCV (RBC) [Entitic vol] 86.8 fL Normal 80-100 [facility] Comment on above: Performed By: #### F E and TIBC, CBC, CMP, TIM #### [address] Mean Corpuscular HGB Conc 34.0 g/dL Normal 32.0-35.0 [facility] Comment on above: Performed By: #### F E and TIBC, CBC, CMP, TIM #### [address] Monocytes (Bld) [#/Vol] 0.8 10*3/uL Normal 0.0-0.8 [facility] Comment on above: Performed By: #### F E and TIBC, CBC, CMP, TIM #### [address] Monocytes/100 WBC (Bld) 9.1 % Normal . [facility] Comment on above: Performed By: #### F E and TIBC, CBC, CMP, TIM #### [address] Neutrophils (Bld) [#/Vol] 5.3 10*3/uL Normal 1.8-7.7 [facility] Comment on above: Performed By: #### F E and TIBC, CBC, CMP, TIM #### [address] Neutrophils/100 WBC (Bld) 62.1 % Normal . [facility] Comment on above: Performed By: #### F E and TIBC, CBC, CMP, TIM #### [address] NRBC% 0.0 /100{WBC} Normal 0-0.5 [facility] Comment on above: Performed By: #### F E and TIBC, CBC, CMP, TIM #### [address] Platelet mean volume (Bld) [Entitic vol] 9.3 fL Normal 6.3-10.7 [facility] Comment on above: Performed By: #### F E and TIBC, CBC, CMP, TIM #### [address] Platelets (Bld) [#/Vol] 219 10*3/uL Normal 150-450 [facility] Comment on above: Performed By: #### F E and TIBC, CBC, CMP, TIM #### [address] RBC (Bld) [#/Vol] 4.06 10*6/uL Normal 3.60-5.00 [facility] Comment on above: Performed By: #### F E and TIBC, CBC, CMP, TIM #### [address] WBC (Bld) [#/Vol] 8.6 10*3/uL Normal 3.8-11.6 [facility] Comment on above: Performed By: #### F E and TIBC, CBC, CMP, TIM #### [address] Comprehensive Metabolic Pane marleny 07-13-2023 Albumin [Mass/Vol] 4.2 g/dL Normal 3.5-5.7 [facility] Comment on above: Performed By: #### F E and TIBC, CBC, CMP, TIM #### [address] Albumin/Globulin [Mass ratio] 1.9 {ratio} Normal [facility] Comment on above: Performed By: #### F E and TIBC, CBC, CMP, TIM #### [facility] [address] ALP [Catalytic activity/Vol] 107 U/L High 34-104 [facility] Comment on above: Performed By: #### F E and TIBC, CBC, CMP, TIM #### [facility] [address] ALT [Catalytic activity/Vol] 19 U/L Normal 7-52 [facility] Comment on above: Performed By: #### F E and TIBC, CBC, CMP, TIM #### [facility] [address] Anion gap [Moles/Vol] 9.8 mmol/L Normal 6.0-15.[address] [facility] Comment on above: Performed By: #### F E and TIBC, CBC, CMP, TIM #### [facility] [address] AST [Catalytic activity/Vol] 15 U/L Normal 13-39 [facility] Comment on above: Performed By: #### F E and TIBC, CBC, CMP, TIM #### [facility] [address] Bilirubin [Mass/Vol] 0.5 mg/dL Normal 0.3-1.0 [facility] Comment on above: Performed By: #### F E and TIBC, CBC, CMP, TIM #### [facility] [address] Calcium [Mass/Vol] 10.7 mg/dL High 8.6-10.3 [facility] Comment on above: Performed By: #### F E and TIBC, CBC, CMP, TIM #### [facility] [address] [place] [address] [place] Chloride [Moles/Vol] 101 mmol/L Normal 98-107 [facility] Comment on above: Performed By: #### F E and TIBC, CBC, CMP, TIM #### [facility] [address] CO2 [Moles/Vol] 28.9 mmol/L Normal 21.0-31.0 [facility] Comment on above: Performed By: #### F E and TIBC, CBC, CMP, TIM #### [facility] [address] Creatinine [Mass/Vol] 1.13 mg/dL Normal 0.60-1.[address] [facility] Comment on above: Performed By: #### F E and TIBC, CBC, CMP, TIM #### [facility] [address] Creatinine Clr Calc Pharmacy 34.88 [facility] Comment on above: Performed By: #### F E and TIBC, CBC, CMP, TIM #### [address] GFR/1.73 sq M.predicted MDRD (S/P/Bld) [Vol rate/Area] 50.109 mL/min/{1.73_m2} [facility] Comment on above: Performed By: #### F E and TIBC, CBC, CMP, TIM #### [address] Globulin (S) [Mass/Vol] 2.2 g/dL Normal [facility] Comment on above: Performed By: #### F E and TIBC, CBC, CMP, TIM #### [address] Glucose [Mass/Vol] 234 mg/dL High 70-100 [facility] Comment on above: Result Comment: [place] Glucose Reference Range is dependent on time and content of last meal. Glucose of more than 200 mg/dL in a nonstressed, ambulatory subject supports the diagnosis of Diabetes Mellitus. ADA recommended reference range Performed By: #### F E and TIBC, CBC, CMP, TIM #### [address] Potassium [Moles/Vol] 4.7 mmol/L Normal 3.5-5.[address] [facility] Comment on above: Performed By: #### F E and TIBC, CBC, CMP, TIM #### [address] [place] [address] [place] Protein [Mass/Vol] 6.4 g/dL Normal 6.4-8.9 [facility] Comment on above: Performed By: #### F E and TIBC, CBC, CMP, TIM #### [facility] [address] Sodium [Moles/Vol] 135 mmol/L Low 136-145 [facility] Comment on above: Performed By: #### F E and TIBC, CBC, CMP, TIM #### [facility] [address] [place] [address] [place] Urea nitrogen [Mass/Vol] 23 mg/dL Normal 7-25 [facility] Comment on above: Performed By: #### F E and TIBC, CBC, CMP, TIM #### [facility] [address] [place] [address] [place] Creatinine [Mass/volume] in Serum or PlasmaOrdered By: Jarrett Loyola on 07-13-2023 Creatinine [Mass/Vol] 1.13 mg/dL 0.60-1.[address] [facility] Eosinophils Auto (Bld) [#/Vo l]Ordered By: Jarrett Loyola on 07-13-2023 Eosinophils (Bld) [#/Vol] 0.2 10*3/uL 0.0-0.45 [facility] Eosinophils/100 WBC Auto (Bl d)Ordered By: Jarrett Loyola on 07-13-2023 Eosinophils/100 WBC (Bld) 2.5 % . [facility] Erythrocyte distribution wid th Auto (RBC) [Ratio]Ordered By: Jarrett Loyola on 07-13-2023 Erythrocyte distribution width (RBC) [Ratio] 13.3 % 11.9-15.3 [facility] Ferritinon 07-13-2023 Ferritin [Mass/Vol] 101.6 ng/mL Normal 11.0-306.8 [facility] Comment on above: Result Comment: PERF ORMED BY: [facility] [address] [place] [address] PATHOLOGIST E LEARNING DEVELOPER RACHELLE MACDONALD M.D. Performed By: #### K APPA, ABDELRAHMAN SERUM, SPE #### [facility] , #### TIM, CBC, CMP, FE and TIBC #### [facility] [address] Ferritin [Mass/volume] in Se rum or PlasmaOrdered By: Jarrett Loyola on 07-13-2023 Ferritin [Mass/Vol] 101.6 ng/mL 11.0-306.8 [facility] Globulin Calc (S) [Mass/Vol] Ordered By: Jarrett Loyola on 07-13-2023 Globulin (S) [Mass/Vol] 2.2 g/dL [facility] Glucose [Mass/volume] in Ser um or PlasmaOrdered By: Jarrett Loyola on 07-13-2023 Glucose [Mass/Vol] 234 mg/dL 70-100 [facility] Comment on above: ADA recommended refe [...] from glycated hemoglobin (Bld) [Mass/Vol] 232 mg/dL [facility] Hematocrit Auto (Bld) [Volum e fraction]Ordered By: Jarrett Loyola on 07-13-2023 Hematocrit (Bld) [Volume fraction] 35.2 % 34.0-46.4 [facility] Hemoglobin A1c percentageOrd ered By: Ramin De Paz on 07-13-2023 HbA1c (Bld) [Mass fraction] 9.7 % 4.3-5.6 [facility] Comment on above: Increased risk for d iabetes: 5.7 - 6.4diabetes: >6.4glycemic control for adults with diabetes: <7.0 Hemoglobin [Mass/volume] in BloodOrdered By: Jarrett Loyola on 07-13-2023 Hemoglobin (Bld) [Mass/Vol] 12.0 g/dL 11.8-15.4 [facility] Iron [Mass/volume] in Serum or PlasmaOrdered By: Jarrett Loyola on 07-13-2023 Iron [Mass/Vol] 72 ug/dL 50-212 [facility] Iron and TIBC Profileon 06-20 % Iron Saturation 22.4 % Normal 20-50 [facility] Comment on above: Performed By: #### K APPA, ABDELRAHMAN SERUM, SPE #### [facility] , #### TIM, CBC, CMP, FE and TIBC #### [facility] [address] Iron [Mass/Vol] 72 ug/dL Normal 50-212 [facility] Comment on above: Performed By: #### K APPA, ABDELRAHMAN SERUM, SPE #### [facility] , #### TIM, CBC, CMP, FE and TIBC #### [facility] [address] Total Iron Binding Capacity 322 ug/dL Normal 255-450 [facility] Comment on above: Performed By: #### K APPA, ABDELRAHMAN SERUM, SPE #### [facility] , #### TIM, CBC, CMP, FE and TIBC #### [facility] [address] [place] [address] Transferrin [Mass/Vol] 230 mg/dL Normal 203-362 [facility] Comment on above: Performed By: #### K APPA, ABDELRAHMAN SERUM, SPE #### [facility] , #### TIM, CBC, CMP, FE and TIBC #### [facility] [address] [place] [address] [place] Iron binding capacity [Mass/ volume] in Serum or PlasmaOrdered By: Jarrett Loyola on 07-13-2023 Iron binding capacity [Mass/Vol] 322 ug/dL 255-450 [facility] Iron saturation [Mass Fracti on] in Serum or PlasmaOrdered By: Jarrett Loyola on 07-13-2023 Iron saturation [Mass fraction] 22.4 % 20-50 [facility] Leukocytes [#/volume] correc laurel for nucleated erythrocytes in Blood by Automated counOrdered By: Jarrett Loyola on 07-13-2023 WBC corrected for nucl RBC Auto (Bld) [#/Vol] 8.6 10*3/uL 3.8-11.6 [facility] Lymphocytes Auto (Bld) [#/Vo l]Ordered By: Jarrett Loyola on 07-13-2023 Lymphocytes (Bld) [#/Vol] 2.2 10*3/uL 1.00-4.8 [facility] Lymphocytes/100 WBC Auto (Bl d)Ordered By: Jarrett Loyola on 07-13-2023 Lymphocytes/100 WBC (Bld) 25.5 % . [facility] MCH Auto (RBC) [Entitic mass ]Ordered By: Jarrett Loyola on 07-13-2023 MCH (RBC) [Entitic mass] 29.5 pg 24.7-34.3 [facility] MCHC Auto (RBC) [Mass/Vol]Or dered By: Jarrett Loyola on 07-13-2023 MCHC (RBC) [Mass/Vol] 34.0 g/dL 32.0-35.0 [facility] MCV Auto (RBC) [Entitic vol] Ordered By: Jarrett Loyola on 07-13-2023 MCV (RBC) [Entitic vol] 86.8 fL 80-100 [facility] Monocytes Auto (Bld) [#/Vol] Ordered By: Jarrett Loyola on 07-13-2023 Monocytes (Bld) [#/Vol] 0.8 10*3/uL 0.0-0.8 [facility] Monocytes/100 WBC Auto (Bld) Ordered By: Jarrett Loyola on 07-13-2023 Monocytes/100 WBC (Bld) 9.1 % . [facility] Neutrophils Auto (Bld) [#/Vo l]Ordered By: Jarrett Loyola on 07-13-2023 Neutrophils (Bld) [#/Vol] 5.3 10*3/uL 1.8-7.7 [facility] Neutrophils/100 WBC Auto (Bl d)Ordered By: Jarrett Loyola on 07-13-2023 Neutrophils/100 WBC (Bld) 62.1 % . [facility] No Panel InformationOrdered By: Jarrett Loyola on 07-13-2023 Estimated GFR (CKD-EPI) 50.109 mL/Min [facility] Creatinine Clearance (Chem 34.88 [facility] Nucleated erythrocytes [Pres ence] in Blood by Automated countOrdered By: Jarrett Loyola on 07-13-2023 Nucleated RBC Auto Ql (Bld) 0.0 /100{WBC} 0-0.5 [facility] Platelet mean volume Auto (B ld) [Entitic vol]Ordered By: Jarrett Loyola on 07-13-2023 Platelet mean volume (Bld) [Entitic vol] 9.3 fL 6.3-10.7 [facility] Platelets Auto (Bld) [#/Vol] Ordered By: Jarrett Loyola on 07-13-2023 Platelets (Bld) [#/Vol] 219 10*3/uL 150-450 [facility] Potassium [Moles/volume] in Serum or PlasmaOrdered By: Jarrett Loyola on 07-13-2023 Potassium [Moles/Vol] 4.7 mmol/L 3.5-5.[address] [facility] Protein [Mass/volume] in Ser um or PlasmaOrdered By: Jarrett Loyola on 07-13-2023 Protein [Mass/Vol] 6.4 g/dL 6.4-8.9 [facility] RBC Auto (Bld) [#/Vol]Ordere d By: Jarrett Loyola on 07-13-2023 RBC (Bld) [#/Vol] 4.06 10*6/uL 3.60-5.00 [facility] Serum or plasma albumin/glob ulin mass ratioOrdered By: Jarrett Loyola on 07-13-2023 Albumin/Globulin [Mass ratio] 1.9 {ratio} [facility] Serum or plasma anion gap de terminationOrdered By: Jarrett Loyola on 07-13-2023 Anion gap [Moles/Vol] 9.8 mmol/L 6.0-15.[address] [facility] Sodium [Moles/volume] in Ser um or PlasmaOrdered By: Jarrett Loyola on 07-13-2023 Sodium [Moles/Vol] 135 mmol/L 136-145 [facility] Transferrin [Mass/volume] in Serum or PlasmaOrdered By: Jarrett Loyola on 07-13-2023 Transferrin [Mass/Vol] 230 mg/dL 203-362 [facility] Urea nitrogen [Mass/volume] in Serum or PlasmaOrdered By: Jarrett Loyola on 07-13-2023 Urea nitrogen [Mass/Vol] 23 mg/dL 7-25 [facility] WBC Auto (Bld) [#/Vol]Ordere d By: Jarrett Loyola on 07-13-2023 WBC (Bld) [#/Vol] 8.6 10*3/uL 3.8-11.6 [facility] Alanine aminotransferase [En zymatic activity/volume] in Serum or PlasmaOrdered By: Tatiana Christianson on 01-10-2023 ALT [Catalytic activity/Vol] 14 U/L 7-52 [facility] Albumin [Mass/volume] in Ser um or PlasmaOrdered By: Tatiana Christianson on 01-10-2023 Albumin [Mass/Vol] 3.8 g/dL 2.9-4.4 [facility] Albumin [Mass/volume] in Ser um or Plasma by Bromocresol green (BCG) dye binding methoOrdered By: Tatiana Christianson on 01-10-2023 Albumin BCG dye [Mass/Vol] 4.6 g/dL 3.5-5.7 [facility] Alkaline phosphatase [Enzyma tic activity/volume] in Serum or PlasmaOrdered By: Tatiana Christianson on 01-10-2023 ALP [Catalytic activity/Vol] 86 U/L 34-104 [facility] Aspartate aminotransferase [ Enzymatic activity/volume] in Serum or PlasmaOrdered By: Tatiana Christianson on 01-10-2023 AST [Catalytic activity/Vol] 14 U/L 13-39 [facility] Basophils Auto (Bld) [#/Vol] Ordered By: Tatiana Christianson on 01-10-2023 Basophils (Bld) [#/Vol] 0.1 10*3/uL 0.0-0.2 [facility] Basophils/100 WBC Auto (Bld) Ordered By: Tatiana Christianson on 01-10-2023 Basophils/100 WBC (Bld) 0.7 % . [facility] Bilirubin.total [Mass/volume ] in Serum or PlasmaOrdered By: Tatiana Christianson on 01-10-2023 Bilirubin [Mass/Vol] 0.4 mg/dL 0.3-1.0 [facility] Calcium [Mass/volume] in Ser um or PlasmaOrdered By: Tatiana Christianson on 01-10-2023 Calcium [Mass/Vol] 10.6 mg/dL 8.6-10.3 [facility] Carbon dioxide, total [Moles /volume] in Serum or PlasmaOrdered By: Tatiana [facility] on 01-10-2023 CO2 [Moles/Vol] 28.9 mmol/L 21.0-31.0 [facility] Chloride [Moles/volume] in S valdo or PlasmaOrdered By: Tatiana Christianson on 01-10-2023 Chloride [Moles/Vol] 103 mmol/L 98-107 [facility] Complete Blood Count Auto Di ffon 01-10-2023 Basophils (Bld) [#/Vol] 0.1 10*3/uL Normal 0.0-0.2 [facility] Comment on above: Result Comment: PERF ORMED BY: [place] [address] PATHOLOGIST E LEARNING DEVELOPER RACHELLE MACDONALD M.D. Performed By: #### K APPA, ABDELRAHMAN SERUM, SPE #### [facility] , #### TIM, CBC, CMP, FE and TIBC #### [facility] [address] Basophils/100 WBC (Bld) 0.7 % Normal . [facility] Comment on above: Performed By: #### K APPA, ABDELRAHMAN SERUM, SPE #### [facility] , #### TIM, CBC, CMP, FE and TIBC #### [address] Eosinophils (Bld) [#/Vol] 0.3 10*3/uL Normal 0.0-0.45 [facility] Comment on above: Performed By: #### K APPA, ABDELRAHMAN SERUM, SPE #### [facility] , #### TIM, CBC, CMP, FE and TIBC #### [address] Eosinophils/100 WBC (Bld) 3.1 % Normal . [facility] Comment on above: Performed By: #### K APPA, ABDELRAHMAN SERUM, SPE #### [facility] , #### TIM, CBC, CMP, FE and TIBC #### [address] Erythrocyte distribution width (RBC) [Ratio] 13.7 % Normal 11.9-15.3 [facility] Comment on above: Performed By: #### K APPA, ABDELRAHMAN SERUM, SPE #### [facility] , #### TIM, CBC, CMP, FE and TIBC #### [address] Hematocrit (Bld) [Volume fraction] 35.4 % Normal 34.0-46.4 [facility] Comment on above: Performed By: #### K APPA, ABDELRAHMAN SERUM, SPE #### [facility] , #### TIM, CBC, CMP, FE and TIBC #### [address] Hemoglobin (Bld) [Mass/Vol] 11.7 g/dL Low 11.8-15.4 [facility] Comment on above: Performed By: #### K APPA, ABDELRAHMAN SERUM, SPE #### [facility] , #### TIM, CBC, CMP, FE and TIBC #### [address] Lymphocytes (Bld) [#/Vol] 2.2 10*3/uL Normal 1.00-4.8 [facility] Comment on above: Performed By: #### K APPA, ABDELRAHMAN SERUM, SPE #### [facility] , #### TIM, CBC, CMP, FE and TIBC #### [address] Lymphocytes/100 WBC (Bld) 25.3 % Normal . [facility] Comment on above: Performed By: #### K APPA, ABDELRAHMAN SERUM, SPE #### [facility] , #### TIM, CBC, CMP, FE and TIBC #### [address] MCH (RBC) [Entitic mass] 28.6 pg Normal 24.7-34.3 [facility] Comment on above: Performed By: #### K APPA, ABDELRAHMAN SERUM, SPE #### [facility] , #### TIM, CBC, CMP, FE and TIBC #### [address] MCV (RBC) [Entitic vol] 86.3 fL Normal 80-100 [facility] Comment on above: Performed By: #### K APPA, ABDELRAHMAN SERUM, SPE #### [facility] , #### TIM, CBC, CMP, FE and TIBC #### [address] Mean Corpuscular HGB Conc 33.1 g/dL Normal 32.0-35.0 [facility] Comment on above: Performed By: #### K APPA, ABDELRAHMAN SERUM, SPE #### [facility] , #### TIM, CBC, CMP, FE and TIBC #### [address] Monocytes (Bld) [#/Vol] 0.7 10*3/uL Normal 0.0-0.8 [facility] Comment on above: Performed By: #### K APPA, ABDELRAHMAN SERUM, SPE #### [facility] , #### TIM, CBC, CMP, FE and TIBC #### [address] Monocytes/100 WBC (Bld) 8.6 % Normal . [facility] Comment on above: Performed By: #### K APPA, ABDELRAHMAN SERUM, SPE #### [facility] , #### TIM, CBC, CMP, FE and TIBC #### [address] Neutrophils (Bld) [#/Vol] 5.3 10*3/uL Normal 1.8-7.7 [facility] Comment on above: Performed By: #### K APPA, ABDELRAHMAN SERUM, SPE #### [facility] , #### TIM, CBC, CMP, FE and TIBC #### [address] Neutrophils/100 WBC (Bld) 62.3 % Normal . [facility] Comment on above: Performed By: #### K APPA, ABDELRAHMAN SERUM, SPE #### [facility] , #### TIM, CBC, CMP, FE and TIBC #### [address] NRBC% 0.1 /100{WBC} Normal 0-0.5 [facility] Comment on above: Performed By: #### K APPA, ABDELRAHMAN SERUM, SPE #### [facility] , #### TIM, CBC, CMP, FE and TIBC #### [address] Platelet mean volume (Bld) [Entitic vol] 9.6 fL Normal 6.3-10.7 [facility] Comment on above: Performed By: #### K APPA, ABDELRAHMAN SERUM, SPE #### [facility] , #### TIM, CBC, CMP, FE and TIBC #### [facility] [address] [place] [address] Platelets (Bld) [#/Vol] 231 10*3/uL Normal 150-450 [facility] Comment on above: Performed By: #### K APPA, ABDELRAHMAN SERUM, SPE #### [facility] , #### TIM, CBC, CMP, FE and TIBC #### [address] RBC (Bld) [#/Vol] 4.11 10*6/uL Normal 3.60-5.00 [facility] Comment on above: Performed By: #### K APPA, ABDELRAHMAN SERUM, SPE #### [facility] , #### TIM, CBC, CMP, FE and TIBC #### [address] WBC (Bld) [#/Vol] 8.5 10*3/uL Normal 3.8-11.6 [facility] Comment on above: Performed By: #### K APPA, ABDELRAHMAN SERUM, SPE #### [facility] , #### TIM, CBC, CMP, FE and TIBC #### [address] Comprehensive Metabolic Pane marleny 01-10-2023 Albumin [Mass/Vol] 4.6 g/dL Normal 3.5-5.7 [facility] Comment on above: Performed By: #### K APPA, ABDELRAHMAN SERUM, SPE #### [facility] , #### TIM, CBC, CMP, FE and TIBC #### [facility] [address] [place] [address] Albumin/Globulin [Mass ratio] 2.0 {ratio} Normal [facility] Comment on above: Performed By: #### K APPA, ABDELRAHMAN SERUM, SPE #### [facility] , #### TIM, CBC, CMP, FE and TIBC #### [address] ALP [Catalytic activity/Vol] 86 U/L Normal 34-104 [facility] Comment on above: Performed By: #### K APPA, ABDELRAHMAN SERUM, SPE #### [facility] , #### TIM, CBC, CMP, FE and TIBC #### [address] ALT [Catalytic activity/Vol] 14 U/L Normal 7-52 [facility] Comment on above: Performed By: #### K APPA, ABDELRAHMAN SERUM, SPE #### [facility] , #### TIM, CBC, CMP, FE and TIBC #### [address] Anion gap [Moles/Vol] 10.9 mmol/L Normal 6.0-15.0 [facility] Comment on above: Performed By: #### K APPA, ABDELRAHMAN SERUM, SPE #### [facility] , #### TIM, CBC, CMP, FE and TIBC #### [address] AST [Catalytic activity/Vol] 14 U/L Normal 13-39 [facility] Comment on above: Performed By: #### K APPA, ABDELRAHMAN SERUM, SPE #### [facility] , #### TIM, CBC, CMP, FE and TIBC #### [address] Bilirubin [Mass/Vol] 0.4 mg/dL Normal 0.3-1.0 [facility] Comment on above: Performed By: #### K APPA, ABDELRAHMAN SERUM, SPE #### [facility] , #### TIM, CBC, CMP, FE and TIBC #### [address] Calcium [Mass/Vol] 10.6 mg/dL High 8.6-10.3 [facility] Comment on above: Performed By: #### K APPA, ABDELRAHMAN SERUM, SPE #### [facility] , #### TIM, CBC, CMP, FE and TIBC #### [facility] [address] Chloride [Moles/Vol] 103 mmol/L Normal 98-107 [facility] Comment on above: Performed By: #### K APPA, ABDELRAHMAN SERUM, SPE #### [facility] , #### TIM, CBC, CMP, FE and TIBC #### [facility] [address] [place] [address] CO2 [Moles/Vol] 28.9 mmol/L Normal 21.0-31.0 [facility] Comment on above: Performed By: #### K APPA, ABDELRAHMAN SERUM, SPE #### [facility] , #### TIM, CBC, CMP, FE and TIBC #### [facility] [address] [place] [address] Creatinine [Mass/Vol] 1.09 mg/dL Normal 0.60-1.[address] [facility] Comment on above: Performed By: #### K APPA, ABDELRAHMAN SERUM, SPE #### [facility] , #### TIM, CBC, CMP, FE and TIBC #### [facility] [address] [place] [address] Creatinine Clr Calc Pharmacy 35.85 [facility] Comment on above: Performed By: #### K APPA, ABDELRAHMAN SERUM, SPE #### [facility] , #### TIM, CBC, CMP, FE and TIBC #### [facility] [address] [place] [address] GFR/1.73 sq M.predicted MDRD (S/P/Bld) [Vol rate/Area] 52.323 mL/min/{1.73_m2} [facility] Comment on above: Performed By: #### K APPA, ABDELRAHMAN SERUM, SPE #### [facility] , #### TIM, CBC, CMP, FE and TIBC #### [address] Globulin (S) [Mass/Vol] 2.3 g/dL Normal [facility] Comment on above: Performed By: #### K APPA, ABDELRAHMAN SERUM, SPE #### [facility] , #### TIM, CBC, CMP, FE and TIBC #### [address] Glucose [Mass/Vol] 170 mg/dL High 70-100 [facility] Comment on above: Result Comment: [facility] Glucose Reference Range is dependent on time and content of last meal. Glucose of more than 200 mg/dL in a nonstressed, ambulatory subject supports the diagnosis of Diabetes Mellitus. ADA recommended reference range Performed By: #### K APPA, ABDELRAHMAN SERUM, SPE #### [facility] , #### TIM, CBC, CMP, FE and TIBC #### [address] Potassium [Moles/Vol] 4.8 mmol/L Normal 3.5-5.[address] [facility] Comment on above: Performed By: #### K APPA, ABDELRAHMAN SERUM, SPE #### [facility] , #### TIM, CBC, CMP, FE and TIBC #### [address] Protein [Mass/Vol] 6.9 g/dL Normal 6.0-8.5 [facility] Comment on above: Performed By: #### K APPA, ABDELRAHMAN SERUM, SPE #### [facility] , #### TIM, CBC, CMP, FE and TIBC #### [address] Sodium [Moles/Vol] 138 mmol/L Normal 136-145 [facility] Comment on above: Performed By: #### K APPA, ABDELRAHMAN SERUM, SPE #### [facility] , #### TIM, CBC, CMP, FE and TIBC #### [facility] [address] Urea nitrogen [Mass/Vol] 20 mg/dL Normal 01-10 [facility] Comment on above: Performed By: #### K APPA, ABDELRAHMAN SERUM, SPE #### [facility] , #### TIM, CBC, CMP, FE and TIBC #### [facility] [address] [place] [address] Creatinine [Mass/volume] in Serum or PlasmaOrdered By: Tatiana Christianson on 01-10-2023 Creatinine [Mass/Vol] 1.09 mg/dL 0.60-1.[address] [facility] Eosinophils Auto (Bld) [#/Vo l]Ordered By: Tatiana Christianson on 01-10-2023 Eosinophils (Bld) [#/Vol] 0.3 10*3/uL 0.0-0.45 [facility] Eosinophils/100 WBC Auto (Bl d)Ordered By: Tatiana Christianson on 01-10-2023 Eosinophils/100 WBC (Bld) 3.1 % . [facility] Erythrocyte distribution wid th Auto (RBC) [Ratio]Ordered By: Tatiana Christianson on 01-10-2023 Erythrocyte distribution width (RBC) [Ratio] 13.7 % 11.9-15.3 [facility] Ferritinon 01-10-2023 Ferritin [Mass/Vol] 23.3 ng/mL Normal 11.0-306.8 [facility] Comment on above: Result Comment: PERF ORMED BY: [place] [address] PATHOLOGIST E LEARNING DEVELOPER RACHELLE MACDONALD M.D. Performed By: #### K APPA, ABDELRAHMAN SERUM, SPE #### [facility] , #### TIM, CBC, CMP, FE and TIBC #### [facility] [address] Ferritin [Mass/volume] in Se rum or PlasmaOrdered By: Tatiana Christianson on 01-10-2023 Ferritin [Mass/Vol] 23.3 ng/mL 11.0-306.8 [facility] Free K+L LT Chains, Qn, Son 01-10-2023 Free [place] Light Chains, S 42.6 mg/L High 3.3-19.4 [facility] Comment on above: Performed By: #### K APPA, ABDELRAHMAN SERUM, SPE #### [facility] , #### TIM, CBC, CMP, FE and TIBC #### [facility] [address] [place] [address] Free Lambda Light Chains, S 19.4 mg/L Normal 5.7-26.3 [facility] Comment on above: Performed By: #### K APPA, ABDELRAHMAN SERUM, SPE #### [facility] , #### TIM, CBC, CMP, FE and TIBC #### [facility] [address] [place] [address] [place]/Lambda Ratio, S 2.20 High 0.26-1.[address] [facility] Comment on above: Result Comment: Perf ormed at: CB - [facility] [address] [id number] [employer] Machine Operator: Rio Huber PhD, Phone: [phone] PERFORMED BY: [place] [address] PATHOLOGIST E LEARNING DEVELOPER RACHELLE MACDONALD M.D. Performed By: #### K APPA, ABDELRAHMAN SERUM, SPE #### [facility] , #### TIM, CBC, CMP, FE and TIBC #### [facility] [address] [place] [address] Globulin Calc (S) [Mass/Vol] Ordered By: Tatiana Christianson on 01-10-2023 Globulin (S) [Mass/Vol] 2.3 g/dL [facility] Glucose [Mass/volume] in Ser um or PlasmaOrdered By: Tatiana Christianson on 01-10-2023 Glucose [Mass/Vol] 170 mg/dL 70-100 [facility] Comment on above: ADA recommended refe rence rangeRandom Glucose Reference Range is dependent on time and content of last meal. Glucose of more than 200 mg/dL in a nonstressed, ambulatory subject supports the diagnosis of Diabetes Mellitus. Hematocrit Auto (Bld) [Volum e fraction]Ordered By: Tatiana Christianson on 01-10-2023 Hematocrit (Bld) [Volume fraction] 35.4 % 34.0-46.4 [facility] Hemoglobin [Mass/volume] in BloodOrdered By: Tatiana Christianson on 01-10-2023 Hemoglobin (Bld) [Mass/Vol] 11.7 g/dL 11.8-15.4 [facility] IgA [Mass/volume] in Serum o r PlasmaOrdered By: Tatiana Christianson on 01-10-2023 IgA [Mass/Vol] 60 mg/dL 64-422 [facility] IgG [Mass/volume] in Serum o r PlasmaOrdered By: Tatiana Christianson on 01-10-2023 IgG [Mass/Vol] 826 mg/dL [phone] [facility] IgM [Mass/volume] in Serum o r PlasmaOrdered By: Tatiana Christianson on 01-10-2023 IgM [Mass/Vol] 61 mg/dL 26-217 [facility] Immunofixation,Serumon 01-10 Immunofixation, Serum Comment: Normal . [facility] Comment on above: Result Comment: Pres ence of monoclonal protein is unclear at this time. Suggest repeat in 3 to 6 months if clinically indicated. Performed By: #### K APPA, ABDELRAHMAN SERUM, SPE #### [facility] , #### TIM, CBC, CMP, FE and TIBC #### [facility] [address] [place] [address] Immunoglobulin A, Serum 60 mg/dL Low 64-422 [facility] Comment on above: Performed By: #### K APPA, ABDELRAHMAN SERUM, SPE #### [facility] , #### TIM, CBC, CMP, FE and TIBC #### [facility] [address] Immunoglobulin G 826 mg/dL Normal [phone] [facility] Comment on above: Performed By: #### K APPA, ABDELRAHMAN SERUM, SPE #### [facility] , #### TIM, CBC, CMP, FE and TIBC #### [facility] [address] Immunoglobulin M, Serum 61 mg/dL Normal 26-217 [facility] Comment on above: Performed By: #### K APPA, ABDELRAHMAN SERUM, SPE #### [facility] , #### TIM, CBC, CMP, FE and TIBC #### [facility] [address] Immunoglobulin light chains. kappa.free [Mass/volume] in SerumOrdered By: Tatiana Christianson on 01-10-2023 Immunoglobulin light chains.kappa.free (S) [Mass/Vol] 42.6 mg/L 3.3-19.4 [facility] Immunoglobulin light chains. kappa.free/Immunoglobulin light chains.lambda.free [MassOrdered By: Tatiana Christianson on 01-10-2023 Immunoglobulin light chains.kappa.free/Immuno globulin light chains.lambda.free (S) [Mass ratio] 2.20 0.26-1.65 [facility] Comment on above: Performed at: [facility] [address] [id number] Director: Rio Huber PhD, Phone: [phone] Immunoglobulin light chains. lambda.free [Mass/volume] in Serum or PlasmaOrdered By: Tatiana Christianson on 01-10-2023 Immunoglobulin light chains.lambda.free [Mass/Vol] 19.4 mg/L 5.7-26.3 [facility] Iron [Mass/volume] in Serum or PlasmaOrdered By: Tatiana Christianson on 01-10-2023 Iron [Mass/Vol] 63 ug/dL 50-212 [facility] Iron and TIBC Profileon 12-18 % Iron Saturation 17.6 % Low 20-50 [facility] Comment on above: Performed By: #### K APPA, ABDELRAHMAN SERUM, SPE #### [facility] , #### TIM, CBC, CMP, FE and TIBC #### [facility] [address] Iron [Mass/Vol] 63 ug/dL Normal 50-212 [facility] Comment on above: Performed By: #### K APPA, ABDELRAHMAN SERUM, SPE #### [facility] , #### TIM, CBC, CMP, FE and TIBC #### [facility] [address] [place] [address] Total Iron Binding Capacity 357 ug/dL Normal 255-450 [facility] Comment on above: Performed By: #### K APPA, ABDELRAHMAN SERUM, SPE #### [facility] , #### TIM, CBC, CMP, FE and TIBC #### [facility] [address] [place] [address] Transferrin [Mass/Vol] 255 mg/dL Normal 203-362 [facility] Comment on above: Performed By: #### K APPA, ABDELRAHMAN SERUM, SPE #### [facility] , #### TIM, CBC, CMP, FE and TIBC #### [facility] [address] [place] [address] [place] Iron binding capacity [Mass/ volume] in Serum or PlasmaOrdered By: Tatiana Christianson on 01-10-2023 Iron binding capacity [Mass/Vol] 357 ug/dL 255-450 [facility] Iron saturation [Mass Fracti on] in Serum or PlasmaOrdered By: Tatiana Christianson on 01-10-2023 Iron saturation [Mass fraction] 17.6 % 20-50 [facility] Leukocytes [#/volume] correc [place] for nucleated erythrocytes in Blood by Automated counOrdered By: Tatiana Christianson on 01-10-2023 WBC corrected for nucl RBC Auto (Bld) [#/Vol] 8.5 10*3/uL 3.8-11.6 [facility] Lymphocytes Auto (Bld) [#/Vo l]Ordered By: Tatiana Christianson on 01-10-2023 Lymphocytes (Bld) [#/Vol] 2.2 10*3/uL 1.00-4.8 [facility] Lymphocytes/100 WBC Auto (Bl d)Ordered By: Tatiana Christianson on 01-10-2023 Lymphocytes/100 WBC (Bld) 25.3 % . [facility] MCH Auto (RBC) [Entitic mass ]Ordered By: Tatiana Christianson on 01-10-2023 MCH (RBC) [Entitic mass] 28.6 pg 24.7-34.3 [facility] MCHC Auto (RBC) [Mass/Vol]Or dered By: Tatiana Christianson on 01-10-2023 MCHC (RBC) [Mass/Vol] 33.1 g/dL 32.0-35.0 [facility] MCV Auto (RBC) [Entitic vol] Ordered By: Tatiana Christianson on 01-10-2023 MCV (RBC) [Entitic vol] 86.3 fL 80-100 [facility] Monocytes Auto (Bld) [#/Vol] Ordered By: Tatiana Christianson on 01-10-2023 Monocytes (Bld) [#/Vol] 0.7 10*3/uL 0.0-0.8 [facility] Monocytes/100 WBC Auto (Bld) Ordered By: Tatiana Christianson on 01-10-2023 Monocytes/100 WBC (Bld) 8.6 % . [facility] Neutrophils Auto (Bld) [#/Vo l]Ordered By: Tatiana Christianson on 01-10-2023 Neutrophils (Bld) [#/Vol] 5.3 10*3/uL 1.8-7.7 [facility] Neutrophils/100 WBC Auto (Bl d)Ordered By: Tatiana Christianson on 01-10-2023 Neutrophils/100 WBC (Bld) 62.3 % . [facility] No Panel InformationOrdered By: Tatiana Christianson on 01-10-2023 Estimated GFR (CKD-EPI) 52.323 mL/Min [facility] Creatinine Clearance (Chem 35.85 [facility] Protein Electrophoresis M-Gabriel Comment: g/dL Not Observed [facility] Comment on above: SPE shows an asymmet rical gamma. Protein Electrophoresis Note See comment . [facility] Comment on above: Protein electrophore sis scan will follow via computer,mail, or public health informatician delivery. Serum Immunofixation Comment: . [facility] Comment on above: Presence of monoclon al protein is unclear at this time. Suggestrepeat in 3 to 6 months if clinically indicated. Nucleated erythrocytes [Pres ence] in Blood by Automated countOrdered By: Tatiana Christianson on 01-10-2023 Nucleated RBC Auto Ql (Bld) 0.1 /100{WBC} 0-0.5 [facility] Platelet mean volume Auto (B ld) [Entitic vol]Ordered By: Tatiana Christianson on 01-10-2023 Platelet mean volume (Bld) [Entitic vol] 9.6 fL 6.3-10.7 [facility] Platelets Auto (Bld) [#/Vol] Ordered By: Tatiana Christianson on 01-10-2023 Platelets (Bld) [#/Vol] 231 10*3/uL 150-450 [facility] Potassium [Moles/volume] in Serum or PlasmaOrdered By: Tatiana Christianson on 01-10-2023 Potassium [Moles/Vol] 4.8 mmol/L 3.5-5.[address] [facility] Protein Electrophoresis, Ser umon 01-10-2023 Albumin [Mass/Vol] 3.8 g/dL Normal 2.9-4.4 [facility] Comment on above: Performed By: #### K APPA, ABDELRAHMAN SERUM, SPE #### [facility] , #### TIM, CBC, CMP, FE and TIBC #### [facility] [address] [place] [address] Albumin/Globulin [Mass ratio] 1.2 {ratio} Normal 0.7-1.7 [facility] Comment on above: Performed By: #### K APPA, ABDELRAHMAN SERUM, SPE #### [facility] , #### TIM, CBC, CMP, FE and TIBC #### [address] Ernos-2-Pcggepuy 0.3 g/dL Normal 0.0-0.4 [facility] Comment on above: Performed By: #### K APPA, ABDELRAHMAN SERUM, SPE #### [facility] , #### TIM, CBC, CMP, FE and TIBC #### [address] Kylem-9-Vtyxgdnp 1.1 g/dL High 0.4-1.0 [facility] Comment on above: Performed By: #### K APPA, ABDELRAHMAN SERUM, SPE #### [facility] , #### TIM, CBC, CMP, FE and TIBC #### [facility] [address] [place] [address] [place] Beta Globulin 0.9 g/dL Normal 0.7-1.3 [facility] Comment on above: Performed By: #### K APPA, ABDELRAHMAN SERUM, SPE #### [facility] , #### TIM, CBC, CMP, FE and TIBC #### [facility] [address] [place] [address] Gamma Globulin 0.9 g/dL Normal 0.4-1.8 [facility] Comment on above: Performed By: #### K APPA, ABDELRAHMAN SERUM, SPE #### [facility] , #### TIM, CBC, CMP, FE and TIBC #### [facility] [address] [place] [address] [place] Globulin (S) [Mass/Vol] 3.1 g/dL Normal 2.2-3.9 [facility] Comment on above: Performed By: #### K APPA, ABDELRAHMAN SERUM, SPE #### [facility] , #### TIM, CBC, CMP, FE and TIBC #### [facility] [address] M-Gabriel Comment: Normal Not Observed [facility] Comment on above: Result Comment: SPE shows an asymmetrical gamma. Performed By: #### K APPA, ABDELRAHMAN SERUM, SPE #### [facility] , #### TIM, CBC, CMP, FE and TIBC #### [facility] [address] SPE-Note Normal . [facility] Comment on above: Result Comment: Prot ein electrophoresis scan will follow via computer, mail, or public health informatician delivery. Performed By: #### K APPA, ABDELRAHMAN SERUM, SPE #### [facility] , #### TIM, CBC, CMP, FE and TIBC #### [facility] [address] Protein [Mass/volume] in Ser um or PlasmaOrdered By: Tatiana Christianson on 01-10-2023 Protein [Mass/Vol] 6.9 g/dL 6.0-8.5 [facility] RBC Auto (Bld) [#/Vol]Ordere d By: Tatiana Christianson on 01-10-2023 RBC (Bld) [#/Vol] 4.11 10*6/uL 3.60-5.00 [facility] Serum globulin measurement ( mass/volume)Ordered By: Tatiana Christianson on 01-10-2023 Globulin (S) [Mass/Vol] 3.1 g/dL 2.2-3.9 [facility] Serum or plasma albumin/glob ulin mass ratioOrdered By: Tatiana Christianson on 01-10-2023 Albumin/Globulin [Mass ratio] 2.0 {ratio} [facility] Albumin/Globulin [Mass ratio] 1.2 {ratio} 0.7-1.7 [facility] Serum or plasma alpha 1 glob ulin measurement by electrophoresis (mass/volume)Ordered By: Tatiana Christianson on 01-10-2023 Alpha 1 globulin Elph [Mass/Vol] 0.3 g/dL 0.0-0.4 [facility] Serum or plasma alpha 2 glob ulin measurement by electrophoresis (mass/volume)Ordered By: Tatiana Christianson on 01-10-2023 Alpha 2 globulin Elph [Mass/Vol] 1.1 g/dL 0.4-1.0 [facility] Serum or plasma anion gap de terminationOrdered By: Tatiana Christianson on 01-10-2023 Anion gap [Moles/Vol] 10.9 mmol/L 6.0-15.0 [facility] Serum or plasma beta globuli n measurement by electrophoresis (mass/volume)Ordered By: Tatiana Chirstianson on 01-10-2023 Beta globulin Elph [Mass/Vol] 0.9 g/dL 0.7-1.3 [facility] Serum or plasma gamma globul in measurement by electrophoresis (mass/volume)Ordered By: Tatiana Christianson on 01-10-2023 Gamma globulin Elph [Mass/Vol] 0.9 g/dL 0.4-1.8 [facility] Sodium [Moles/volume] in Ser um or PlasmaOrdered By: Tatiana Christianson on 01-10-2023 Sodium [Moles/Vol] 138 mmol/L 136-145 [facility] Transferrin [Mass/volume] in Serum or PlasmaOrdered By: Tatiana Christianson on 01-10-2023 Transferrin [Mass/Vol] 255 mg/dL 203-362 [facility] Urea nitrogen [Mass/volume] in Serum or PlasmaOrdered By: Tatiana Christianson on 01-10-2023 Urea nitrogen [Mass/Vol] 20 mg/dL 7-25 [facility] WBC Auto (Bld) [#/Vol]Ordere d By: Tatiana Christianson on 01-10-2023 WBC (Bld) [#/Vol] 8.5 10*3/uL 3.8-11.6 [facility] Albumin [Mass/volume] in Ser um or PlasmaOrdered By: Jarrett Loyola on 07-11-2022 Albumin [Mass/Vol] 4.3 g/dL 3.2-5.5 [facility] Basophils Auto (Bld) [#/Vol] Ordered By: Jarrett Loyola on 07-11-2022 Basophils (Bld) [#/Vol] 0.1 10*3/uL 0.0-0.2 [facility] Basophils/100 WBC Auto (Bld) Ordered By: Jarrett Loyola on 07-11-2022 Basophils/100 WBC (Bld) 0.7 % . [facility] CT biopsyOrdered By: Jarrett Loyola on 07-11-2022 Transferrin [Mass/Vol] 256 mg/dL 180-380 [facility] Creatinine and Glomerular fi ltration rate.predicted panel (S/P/Bld)Ordered By: Jarrett Loyola on 07-11-2022 Creatinine [Mass/Vol] 1.30 mg/dL 0.44-1.[address] [facility] Eosinophils Auto (Bld) [#/Vo l]Ordered By: Jarrett Loyola on 07-11-2022 Eosinophils (Bld) [#/Vol] 0.3 10*3/uL 0.0-0.45 [facility] Eosinophils/100 WBC Auto (Bl d)Ordered By: Jarrett oLyola on 07-11-2022 Eosinophils/100 WBC (Bld) 3.1 % . [facility] Erythrocyte distribution wid th Auto (RBC) [Ratio]Ordered By: Jarrett Loyola on 07-11-2022 Erythrocyte distribution width (RBC) [Ratio] 13.7 % 11.9-15.3 [facility] Estimated glomerular filtrat ion rate (GFR) non- AmericanOrdered By: Jarrett Loyola on 07-11-2022 GFR/1.73 sq M.predicted among non-blacks MDRD (S/P/Bld) [Vol rate/Area] 40 mL/Min [facility] Ferritin [Mass/volume] in Se rum or PlasmaOrdered By: Jarrett Loyola on 07-11-2022 Ferritin [Mass/Vol] 53.8 ng/mL 11-306.8 [facility] Globulin Calc (S) [Mass/Vol] Ordered By: Jarrett Loyola on 07-11-2022 Globulin (S) [Mass/Vol] 2.5 g/dL [facility] Glucose mean value [Mass/vol ume] in Blood Estimated from glycated hemoglobinOrdered By: Ramin De Paz on 07-11-2022 Average glucose Estimated from glycated hemoglobin (Bld) [Mass/Vol] 171 mg/dL [facility] Hematocrit Auto (Bld) [Volum e fraction]Ordered By: Jarrett Loyola on 07-11-2022 Hematocrit (Bld) [Volume fraction] 38.0 % 34.0-46.4 [facility] Hemoglobin A1c percentageOrd ered By: Ramin De Paz on 07-11-2022 HbA1c (Bld) [Mass fraction] 7.6 % 4.3-5.6 [facility] Comment on above: Increased risk for d iabetes: 5.7 - 6.4diabetes: >6.4glycemic control for adults with diabetes: <7.0 Hemoglobin [Mass/volume] in BloodOrdered By: Jarrett Loyola on 07-11-2022 Hemoglobin (Bld) [Mass/Vol] 12.4 g/dL 11.8-15.4 [facility] Iron [Mass/volume] in Serum or PlasmaOrdered By: Jarrett Loyola on 07-11-2022 Iron [Mass/Vol] 69 ug/dL 40-150 [facility] Iron binding capacity [Mass/ volume] in Serum or PlasmaOrdered By: Jarrett Loyola on 07-11-2022 Iron binding capacity [Mass/Vol] 358 ug/dL 255-450 [facility] Iron saturation [Mass Fracti on] in Serum or PlasmaOrdered By: Jarrett Loyola on 07-11-2022 Iron saturation [Mass fraction] 19.3 % 20-50 [facility] Leukocytes [#/volume] correc laurel for nucleated erythrocytes in Blood by Automated counOrdered By: Jarrett Loyola on 07-11-2022 WBC corrected for nucl RBC Auto (Bld) [#/Vol] 9.6 10*3/uL 3.8-11.6 [facility] Lymphocytes Auto (Bld) [#/Vo l]Ordered By: Jarrett Loyola on 07-11-2022 Lymphocytes (Bld) [#/Vol] 2.6 10*3/uL 1.00-4.8 [facility] Lymphocytes/100 WBC Auto (Bl d)Ordered By: Jarrett Loyola on 07-11-2022 Lymphocytes/100 WBC (Bld) 27.7 % . [facility] MCH Auto (RBC) [Entitic mass ]Ordered By: Jarrett Loyola on 07-11-2022 MCH (RBC) [Entitic mass] 29.1 pg 24.7-34.3 [facility] MCHC Auto (RBC) [Mass/Vol]Or dered By: Jarrett Loyola on 07-11-2022 MCHC (RBC) [Mass/Vol] 32.7 g/dL 32.0-35.0 [facility] MCV Auto (RBC) [Entitic vol] Ordered By: Jarrett Loyola on 07-11-2022 MCV (RBC) [Entitic vol] 88.8 fL 80-100 [facility] Monocytes Auto (Bld) [#/Vol] Ordered By: Jarrett Loyola on 07-11-2022 Monocytes (Bld) [#/Vol] 0.8 10*3/uL 0.0-0.8 [facility] Monocytes/100 WBC Auto (Bld) Ordered By: Jarrett Loyola on 07-11-2022 Monocytes/100 WBC (Bld) 8.0 % . [facility] Neutrophils Auto (Bld) [#/Vo l]Ordered By: Jarrett Loyola on 07-11-2022 Neutrophils (Bld) [#/Vol] 5.8 10*3/uL 1.8-7.7 [facility] Neutrophils/100 WBC Auto (Bl d)Ordered By: Jarrett Loyola on 07-11-2022 Neutrophils/100 WBC (Bld) 60.5 % . [facility] No Panel InformationOrdered By: Jarrett Loyola on 07-11-2022 Estimated GFR () 48 mL/Min [facility] Comment on above: GFR estimated refere nce range: According to KDOQI guidelines, <60 ml/min/1.73m2 is sufficient to diagnose a patient with chronic kidney disease. Pharmacy Creatinine Clearance (Chem 31.24 [facility] Nucleated erythrocytes [Pres ence] in Blood by Automated countOrdered By: Jarrett Loyola on 07-11-2022 Nucleated RBC Auto Ql (Bld) 0.1 /100{WBC} 0-0.5 [facility] Platelet mean volume Auto (B ld) [Entitic vol]Ordered By: Jarrett Loyola on 07-11-2022 Platelet mean volume (Bld) [Entitic vol] 9.7 fL 6.3-10.7 [facility] Platelets Auto (Bld) [#/Vol] Ordered By: Jarrett Loyola on 07-11-2022 Platelets (Bld) [#/Vol] 259 10*3/uL 150-450 [facility] Protein [Mass/volume] in Ser um or PlasmaOrdered By: Jarrett Loyola on 07-11-2022 Protein [Mass/Vol] 6.8 g/dL 6.1-7.9 [facility] RBC Auto (Bld) [#/Vol]Ordere d By: Jarrett Loyola on 07-11-2022 RBC (Bld) [#/Vol] 4.27 10*6/uL 3.60-5.00 [facility] Serum or plasma alanine landaverde otransferase measurement without P-5'-P (enzymatic activiOrdered By: Jarrett Loyola on 07-11-2022 ALT No additional P-5'-P [Catalytic activity/Vol] 21 U/L 10-60 [facility] Serum or plasma albumin/glob ulin mass ratioOrdered By: Jarrett Loyola on 07-11-2022 Albumin/Globulin [Mass ratio] 1.7 {ratio} [facility] Serum or plasma alkaline jesus sphatase measurement (enzymatic activity/volume)Ordered By: Jarrett Loyola on 07-11-2022 ALP [Catalytic activity/Vol] 81 U/L 32-92 [facility] Serum or plasma anion gap de terminationOrdered By: Jarrett Loyola on 07-11-2022 Anion gap [Moles/Vol] 17.0 mmol/L 6.0-15.0 [facility] Serum or plasma aspartate am inotransferase measurement (enzymatic activity/volume)Ordered By: Jarrett Loyola on 07-11-2022 AST [Catalytic activity/Vol] 19 U/L 10-42 [facility] Serum or plasma calcium jimmy urement (mass/volume)Ordered By: Jarrett Loyola on 07-11-2022 Calcium [Mass/Vol] 10.6 mg/dL 8.2-10.2 [facility] Serum or plasma chloride lacho surement (moles/volume)Ordered By: Jarrett Loyola on 07-11-2022 Chloride [Moles/Vol] 99 mmol/L 95-114 [facility] Serum or plasma glucose jimmy urement (mass/volume)Ordered By: Jarrtet Loyola on 07-11-2022 Glucose [Mass/Vol] 155 mg/dL 70-100 [facility] Comment on above: ADA recommended refe rence rangeRandom Glucose Reference Range is dependent on time and content of last meal. Glucose of more than 200 mg/dL in a nonstressed, ambulatory subject supports the diagnosis of Diabetes Mellitus. Serum or plasma potassium me asurement (moles/volume)Ordered By: Jarrett Loyola on 07-11-2022 Potassium [Moles/Vol] 4.8 mmol/L 3.5-5.[address] [facility] Serum or plasma sodium measu rement (moles/volume)Ordered By: Jarrett Loyola on 07-11-2022 Sodium [Moles/Vol] 137 mmol/L 136-146 [facility] Serum or plasma total biliru bin measurement (mass/volume)Ordered By: Jarrett Loyola on 07-11-2022 Bilirubin [Mass/Vol] 0.5 mg/dL 0.3-1.2 [facility] Serum or plasma total carbon dioxide measurement (moles/volume)Ordered By: Jarrett Loyola on 07-11-2022 CO2 [Moles/Vol] 25.8 mmol/L 22.0-30.0 [facility] Serum or plasma urea nitroge n measurement (mass/volume)Ordered By: Jarrett Loyola on 07-11-2022 Urea nitrogen [Mass/Vol] 23 mg/dL 03-11 [facility] WBC Auto (Bld) [#/Vol]Ordere d By: Jarrett Loyola on 07-11-2022 WBC (Bld) [#/Vol] 9.6 10*3/uL 3.8-11.6 [facility] CALCIUM 24 HR URINEon 2021 CALC, 24 HR UR 134.0 mg/24 hr Normal 100.0-300.0 [facility] Comment on above: Performed By: #### B MP #### [facility] [address] [place] [address] Dr. Jessie Cheney UR CALCIUM 6.7 mg/dL Normal 5.1-21.0 [facility] Comment on above: Performed By: #### B MP #### [facility] [address] [address] [address] Jessie Cheney UR TOT VOL 2000 ml/24 HR Normal [facility] Comment on above: Performed By: #### B MP #### [facility] [address] [address] [address] Jessie Cheney PTH INTACTon 05-31-2022 PTH, Intact 37 pg/mL Normal 15-65 [facility] Comment on above: Performed By: #### B MP #### [facility] [address] [address] [address] Jessie Cheney PHOSPHORUSon 05-30-2022 Phosphate [Mass/Vol] 2.6 mg/dL Normal 2.6-4.7 [facility] Comment on above: Performed By: #### T SH, FT3 #### [facility] [address] [address] [address] Jessie Cheney PROF CHEM 8 (BAS METB)on Anion gap [Moles/Vol] 11.6 mmol/L Normal [facility] Comment on above: Performed By: #### T SH, FT3 #### [facility] [address] [place] [address] Dr. Jessie Cheney Calcium [Mass/Vol] 10.3 mg/dL Critically high 8.5-10.1 [facility] Comment on above: Performed By: #### T SH, FT3 #### [facility] [address] [place] [address] Dr. Jessie Cheney Chloride [Moles/Vol] 99 mmol/L Normal 98-107 [facility] Comment on above: Performed By: #### T SH, FT3 #### [facility] [address] [place] [address] Dr. Jessie Cheney CO2 [Moles/Vol] 27.8 mmol/L Normal 21.0-32.0 [facility] Comment on above: Performed By: #### T SH, FT3 #### [facility] [address] [place] [address] Dr. Jessie Cheney Creatinine [Mass/Vol] 1.26 mg/dL Critically high 0.55-1.02 [facility] Comment on above: Performed By: #### T SH, FT3 #### [facility] [address] [place] [address] Dr. Jessie Cheney EGFR-AF TAIWANESE 50 mL/min/1.73m2 Critically low >=60 [facility] Comment on above: Performed By: #### T KRIA, FT3 #### [facility] [address] [place] [address] Dr. Jessie Cheney EGFR-NON AF TAIWANESE 41 mL/min/1.73m2 Critically low >=60 [facility] Comment on above: Performed By: #### T KIRA, FT3 #### [facility] [address] [place] [address] Dr. Jessie Cheney Glucose [Mass/Vol] 220 mg/dL Critically high 74-106 [facility] Comment on above: Performed By: #### T SH, FT3 #### [facility] [address] [place] [address] Dr. Jessie Cheney Potassium [Moles/Vol] 4.4 mmol/L Normal 3.5-5.1 [facility] Comment on above: Performed By: #### T SH, FT3 #### [facility] [address] [place] [address] Dr. Jessie Cheney Sodium [Moles/Vol] 134 mmol/L Critically low 136-145 [facility] Comment on above: Performed By: #### T SH, FT3 #### [facility] [address] [place] [address] Dr. Jessie Cheney Urea nitrogen [Mass/Vol] 27.0 mg/dL Critically high 7.0-18 .0 [facility] Comment on above: Performed By: #### T SH, FT3 #### [facility] [address] [place] [address] Dr. Jessie Cheney Urea nitrogen/Creatinine [Mass ratio] 21.4 mg/mg Normal [facility] Comment on above: Performed By: #### T , FT3 #### [facility] [address] [place] [address] Dr. Jessie Cheney VITAMIN D 25 OHon 05-30-2022 VIT D 25-OH 28.7 ng/mL Normal [facility] Comment on above: Performed By: #### B MP #### [facility] [address] [place] [address] Dr. Jessie Cheney VIT D RANGES SEE BELOW Normal [facility] Comment on above: Result Comment: <20 ng/mL Vit D deficient 20 - <30 ng/mL Vit D insufficient 30 - 100 ng/mL Vit D sufficient >100 ng/mL Potential Toxicity Performed By: #### B MP #### [facility] [address] [place] [address] Dr. Jessie Cheney MICROALBUMIN URINEon 022 Albumin, Urine 154.3 ug/mL Normal Not Estab. [facility] Comment on above: Performed By: #### B MP #### [facility] [address] [place] [address] Dr. Jessie Cheney GLYCOHEMOGLOBIN A1Con 2021 ADA RECOMMENDATION SEE BELOW Normal [facility] Comment on above: Result Comment: ADA RECOMMENDED LIMIT 4.0 - 6.0 ADA THERAPEUTIC TARGET < 7.0 ACTION SUGGESTED > 7.0 Performed By: #### A 1C #### [facility] [address] [address] [address] Jessie Cheney Glucose [Mass/Vol] 209 mg/dL Normal [facility] Comment on above: Performed By: #### A 1C #### [facility] [address] [address] [address] Jessie Cheney HbA1c (Bld) [Mass fraction] 8.9 % Critically high 4.5-6.2 [facility] Comment on above: Performed By: #### A 1C #### [facility] [address] [address] [address] Jessie Cheney MG MAMM SCREEN 3D RAMILA CADon 03-15-2022 MG MAMM SCREEN 3D RAMILA CAD Patient: MAAME VELASCO Exam Date: 03/15/2022 : 1945 Gender:F Ordering : DR RAMIN DE PAZ D.O. Admission #: [id number] Family : Order #: [id number] CLICK HERE TO VIEW EXAM RADIOLOGY REPORT [...] Treatments None Family Cancers None LOCATION: [facility] BREAST COMPOSITION: Scattered areas fibroglandular density. FINDINGS: [...] Malik MD on 03/16/2022 at 07:44 Normal [facility] PROF CHEM 8 (BAS METB)on Anion gap [Moles/Vol] 12.4 mmol/L Normal [facility] Comment on above: Performed By: #### B MP #### [facility] [address] [address] [address] Jessie Cheney Calcium [Mass/Vol] 10.4 mg/dL Critically high 8.5-10.1 [facility] Comment on above: Performed By: #### B MP #### [facility] [address] [address] [address] Jessie Cheney Chloride [Moles/Vol] 97 mmol/L Critically low 98-107 [facility] Comment on above: Performed By: #### B MP #### [facility] [address] [address] [address] Jessie Cheney CO2 [Moles/Vol] 30.8 mmol/L Normal 21.0-32.0 [facility] Comment on above: Performed By: #### B MP #### [facility] [address] [address] [address] Jessie Cheney Creatinine [Mass/Vol] 1.26 mg/dL Critically high 0.55-1.02 [facility] Comment on above: Performed By: #### B MP #### [facility] [address] [address] [address] Jessie Cheney EGFR-AF TAIWANESE 50 mL/min/1.73m2 Critically low >=60 [facility] Comment on above: Performed By: #### B MP #### [facility] [address] [address] [address] Jessie Cheney EGFR-NON AF TAIWANESE 41 mL/min/1.73m2 Critically low >=60 [facility] Comment on above: Performed By: #### B MP #### [facility] [address] [address] [address] Jessie Cheney Glucose [Mass/Vol] 288 mg/dL Critically high 74-106 [facility] Comment on above: Performed By: #### B MP #### [facility] [address] [address] [address] Jessie Cheney Potassium [Moles/Vol] 4.2 mmol/L Normal 3.5-5.1 [facility] Comment on above: Performed By: #### B MP #### [facility] [address] [address] [address] Jessie Cheney Sodium [Moles/Vol] 136 mmol/L Normal 136-145 [facility] Comment on above: Performed By: #### B MP #### [facility] [address] [address] [address] Jessie Cheney Urea nitrogen [Mass/Vol] 21.0 mg/dL Critically high 7.0-18 .0 [facility] Comment on above: Performed By: #### B MP #### [facility] [address] [address] [address] Jessie Cheney Urea nitrogen/Creatinine [Mass ratio] 16.7 mg/mg Normal [facility] Comment on above: Performed By: #### B MP #### [facility] [address] [address] [address] Jessie Cheney XR DEXA BONE DENSITYon [...] ESTUARDO MALIK Date: 2022-03-15 17:24 Normal [facility] - Hematology and Cell countsOrdered By: Jarrett Loyola on 02-15-2022 Nucleated RBC/100 WBC (Bld) [Ratio] 0.0 % 0-0.5 [facility] Covid-19 PCR (CVDTBH)on 12-18 SARS-CoV-2 (COVID-19) RNA RADHIKA+probe Ql (Unsp spec) Detected Critically abnormal NOT DETECTED [facility] Comment on above: Result Comment: This test is not yet approved or cleared by the [place] FDA. When there are no FDA-approved or cleared tests available, and other criteria are met, FDA can make tests available under an emergency access mechanism called an Emergency Use Authorization (EUA). The EUA for this test is supported by the [employer] Operator of Health and Human Service's declaration that [...] used). Performed By: #### B MP #### [facility] [address] [place] [address] Dr. Jessie Cheney Basophils Auto (Bld) [#/Vol] Ordered By: Jarrett Loyola on 01-05-2022 Basophils (Bld) [#/Vol] 0.0 10*3/uL 0.0-0.2 [facility] Basophils/100 WBC Auto (Bld) Ordered By: Jarrett Loyola on 01-05-2022 Basophils/100 WBC (Bld) 0.4 % . [facility] Blood hemoglobin measurement (mass/volume)Ordered By: Jarrett Loyola on 01-05-2022 Hemoglobin (Bld) [Mass/Vol] 12.2 g/dL 11.8-15.4 [facility] Blood leukocytes automated c ount (number/volume)Ordered By: Jarrett Loyola on 01-05-2022 WBC (Bld) [#/Vol] 11.4 10*3/uL 4.5-11.0 [facility] [facility] Body fluid albumin measureme nt (mass/volume)Ordered By: Jarrett Loyola on 01-05-2022 Albumin (Body fld) [Mass/Vol] 4.1 g/dL 3.2-5.5 [facility] Creatinine and Glomerular fi ltration rate.predicted panel (S/P/Bld)Ordered By: Jarrett Loyola on 01-05-2022 Creatinine [Mass/Vol] 1.23 mg/dL 0.44-1.[address] [facility] Eosinophils Auto (Bld) [#/Vo l]Ordered By: Jarrett Loyola on 01-05-2022 Eosinophils (Bld) [#/Vol] 0.2 10*3/uL 0.0-0.45 [facility] Eosinophils/100 WBC Auto (Bl d)Ordered By: Jarrett Loyola on 01-05-2022 Eosinophils/100 WBC (Bld) 1.9 % . [facility] Erythrocyte distribution wid th Auto (RBC) [Ratio]Ordered By: Jarrett Loyola on 01-05-2022 Erythrocyte distribution width (RBC) [Ratio] 13.7 % 11.9-15.3 [facility] Estimated glomerular filtrat ion rate (GFR) non- AmericanOrdered By: Jarrett Loyola on 01-05-2022 GFR/1.73 sq M.predicted among non-blacks MDRD (S/P/Bld) [Vol rate/Area] 42 mL/Min [facility] Globulin Calc (S) [Mass/Vol] Ordered By: Jarrett Loyola on 01-05-2022 Globulin (S) [Mass/Vol] 2.3 g/dL [facility] Hematocrit Auto (Bld) [Volum e fraction]Ordered By: Jarrett Loyola on 01-05-2022 Hematocrit (Bld) [Volume fraction] 36.6 % 34.0-46.4 [facility] Laboratory - Hematology and Cell countsOrdered By: Jarrett Loyola on 01-05-2022 Nucleated RBC/100 WBC (Bld) [Ratio] 0.0 % 0-0.5 [facility] Lymphocytes Auto (Bld) [#/Vo l]Ordered By: Jarrett Loyola on 01-05-2022 Lymphocytes (Bld) [#/Vol] 2.2 10*3/uL 1.00-4.8 [facility] Lymphocytes/100 WBC Auto (Bl d)Ordered By: Jarrett Loyola on 01-05-2022 Lymphocytes/100 WBC (Bld) 19.4 % . [facility] MCH Auto (RBC) [Entitic mass ]Ordered By: Jarrett Loyola on 01-05-2022 MCH (RBC) [Entitic mass] 29.7 pg 24.7-34.3 [facility] MCHC Auto (RBC) [Mass/Vol]Or dered By: Jarrett Loyola on 01-05-2022 MCHC (RBC) [Mass/Vol] 33.3 g/dL 32.0-35.[address] [facility] MCV Auto (RBC) [Entitic vol] Ordered By: Jarrett Loyola on 01-05-2022 MCV (RBC) [Entitic vol] 89.2 fL 80-100 [facility] Monocytes Auto (Bld) [#/Vol] Ordered By: Jarrett Loyola on 01-05-2022 Monocytes (Bld) [#/Vol] 0.8 10*3/uL 0.0-0.8 [facility] Monocytes/100 WBC Auto (Bld) Ordered By: Jarrett Loyola on 01-05-2022 Monocytes/100 WBC (Bld) 7.0 % . [facility] Neutrophils Auto (Bld) [#/Vo l]Ordered By: Jarrett Loyola on 01-05-2022 Neutrophils (Bld) [#/Vol] 8.1 10*3/uL 1.8-7.7 [facility] Neutrophils/100 WBC Auto (Bl d)Ordered By: Jarrett Loyola on 01-05-2022 Neutrophils/100 WBC (Bld) 71.3 % . [facility] No Panel InformationOrdered By: Jarrett Loyola on 01-05-2022 25-Hydroxy Vitamin D Total 26.0 ng/mL 30-100 [facility] Comment on above: VITAMIN D STATUS 25( [...] 2010; 96(7):1911-30. Estimated GFR () 51 mL/Min [facility] Comment on above: GFR estimated refere nce range: According to KDOQI guidelines, <60 ml/min/1.73m2 is sufficient to diagnose a patient with chronic kidney disease. Pharmacy Creatinine Clearance (Chem 33.02 [facility] Platelet mean volume Auto (B ld) [Entitic vol]Ordered By: Jarrett Loyola on 01-05-2022 Platelet mean volume (Bld) [Entitic vol] 9.5 fL 6.3-10.7 [facility] Platelets Auto (Bld) [#/Vol] Ordered By: Jarrett Loyola on 01-05-2022 Platelets (Bld) [#/Vol] 258 10*3/uL 150-450 [facility] Protein [Mass/volume] in Ser um or PlasmaOrdered By: Jarrett Loyola on 01-05-2022 Protein [Mass/Vol] 6.4 g/dL 6.1-7.9 [facility] RBC Auto (Bld) [#/Vol]Ordere d By: Jarrett Loyola on 01-05-2022 RBC (Bld) [#/Vol] 4.10 10*6/uL 3.60-5.00 [facility] Serum or plasma alanine landaverde otransferase measurement without P-5'-P (enzymatic activiOrdered By: Jarrett Loyola on 01-05-2022 ALT No additional P-5'-P [Catalytic activity/Vol] 23 U/L 10-60 [facility] Serum or plasma albumin/glob ulin mass ratioOrdered By: Jarrett Loyola on 01-05-2022 Albumin/Globulin [Mass ratio] 1.8 {ratio} [facility] Serum or plasma alkaline jesus sphatase measurement (enzymatic activity/volume)Ordered By: Jarrett Loyola on 01-05-2022 ALP [Catalytic activity/Vol] 105 U/L 32-92 [facility] Serum or plasma aspartate am inotransferase measurement (enzymatic activity/volume)Ordered By: Jarrett Loyola on 01-05-2022 AST [Catalytic activity/Vol] 17 U/L 10-42 [facility] Serum or plasma calcitriol m easurement (mass/volume)Ordered By: Jarrett Loyola on 01-05-2022 1,25-dihydroxyvitamin D3 [Mass/Vol] 49.7 pg/mL 24.8-81.5 [facility] Comment on above: Please note refere nce interval change Performed at: - [address] [id number] [employer] Operator: Uziel Granado MD, Phone: [phone] Please note refere nce interval changePerformed at: - [facility]co[address] [id number] Director: Uziel Granado MD, Phone: [phone] Serum or plasma calcium jimmy urement (mass/volume)Ordered By: Jarrett Loyola on 01-05-2022 Calcium [Mass/Vol] 10.3 mg/dL 8.2-10.2 [facility] Serum or plasma chloride lacho surement (moles/volume)Ordered By: Jarrett Loyola on 01-05-2022 Chloride [Moles/Vol] 95 mmol/L 95-114 [facility] Serum or plasma glucose jimmy urement (mass/volume)Ordered By: Jarrett Loyola on 01-05-2022 Glucose [Mass/Vol] 375 mg/dL 70-100 [facility] Comment on above: ADA recommended refe rence range Random Glucose Reference Range is dependent on time and content of last meal. Glucose of more than 200 mg/dL in a nonstressed, ambulatory subject supports the diagnosis of Diabetes Mellitus. Serum or plasma intact parat hyroid hormone measurement (mass/volume)Ordered By: Jarrett Loyola on 01-05-2022 Parathyrin.intact [Mass/Vol] 73.7 pg/mL 12-88 [facility] Serum or plasma potassium me asurement (moles/volume)Ordered By: Jarrett Loyola on 01-05-2022 Potassium [Moles/Vol] 4.6 mmol/L 3.5-5.[address] [facility] Serum or plasma sodium measu rement (moles/volume)Ordered By: Jarrett Loyola on 01-05-2022 Sodium [Moles/Vol] 130 mmol/L 136-146 [facility] Serum or plasma total biliru bin measurement (mass/volume)Ordered By: Jarrett Loyola on 01-05-2022 Bilirubin [Mass/Vol] 0.5 mg/dL 0.3-1.2 [facility] Serum or plasma total carbon dioxide measurement (moles/volume)Ordered By: Jarrett Loyola on 01-05-2022 CO2 [Moles/Vol] 24.4 mmol/L 22.0-30.0 [facility] Serum or plasma urea nitroge n measurement (mass/volume)Ordered By: Jarrett Loyola on 01-05-2022 Urea nitrogen [Mass/Vol] 23 mg/dL 9- [facility] CT biopsyOrdered By: Cora Leyva on 09-10-2021 Transferrin [Mass/Vol] 263 mg/dL 180-380 [facility] Ferritin [Mass/volume] in Se rum or PlasmaOrdered By: Cora Gaming on 09-10-2021 Ferritin [Mass/Vol] 83.0 ng/mL 11-306.8 [facility] Iron [Mass/volume] in Serum or PlasmaOrdered By: Cora Gaming on 09-10-2021 Iron [Mass/Vol] 64 ug/dL 40-150 [facility] Iron binding capacity [Mass/ volume] in Serum or PlasmaOrdered By: Cora Gaming on 09-10-2021 Iron binding capacity [Mass/Vol] 368 ug/dL 255-450 [facility] Iron saturation [Mass Fracti on] in Serum or PlasmaOrdered By: Cora Gaming on 09-10-2021 Iron saturation [Mass fraction] 17.0 % 20-50 [facility] No Panel InformationOrdered By: Cora Gaming on 09-10-2021 Large Platelets Slight [facility] Platelet Estimate Normal Normal [facility] Platelet Morphology Comment N/A [facility] RBC morphologyOrdered By: Arminda Gaming on 09-10-2021 RBC morphology finding Nom (Bld) Normal [facility] PROF CHEM 8 (BAS METB)on Anion gap [Moles/Vol] 11.6 mmol/L Normal [facility] Comment on above: Performed By: #### B MP #### [facility] [address] [address] [address] Jessie Cheney Calcium [Mass/Vol] 10.4 mg/dL Critically high 8.4-10.2 [facility] Comment on above: Performed By: #### B MP #### [facility] [address] [address] [address] Jessie Cheney Chloride [Moles/Vol] 101 mmol/L Normal 98-107 [facility] Comment on above: Performed By: #### B MP #### [facility] [address] [address] [address] Jessie Cheney CO2 [Moles/Vol] 27.8 mmol/L Normal 22.0-30.0 [facility] Comment on above: Performed By: #### B MP #### [facility] [address] [place] [address] Dr. Jessie Cheney Creatinine [Mass/Vol] 0.89 mg/dL Normal 0.52-1.04 [facility] Comment on above: Performed By: #### B MP #### [facility] [address] [address] [address] Jessie Cheney EGFR-AF TAIWANESE >60 Normal >=60 [facility] Comment on above: Performed By: #### B MP #### [facility] [address] [place] [address] Dr. Jessie Cheney EGFR-NON AF TAIWANESE >60 Normal >=60 [facility] Comment on above: Performed By: #### B MP #### [facility] [address] [address] [address] Jessie Cheney Glucose [Mass/Vol] 189 mg/dL Critically high 74-106 [facility] Comment on above: Performed By: #### B MP #### [facility] [address] [address] [address] Jessie Cheney Potassium [Moles/Vol] 4.4 mmol/L Normal 3.4-5.0 [facility] Comment on above: Performed By: #### B MP #### [facility] [address] [place] [address] Dr. Jessie Chenye Sodium [Moles/Vol] 136 mmol/L Critically low 137-145 Th [facility] Comment on above: Performed By: #### B MP #### [facility] [address] [place] [address] Dr. Jessie Cheney Urea nitrogen [Mass/Vol] 14.0 mg/dL Normal 7.0-17.0 [facility] Comment on above: Performed By: #### B MP #### [facility] [address] [place] [address] Dr. Jessie Cheney Urea nitrogen/Creatinine [Mass ratio] 15.7 mg/mg Normal [facility] Comment on above: Performed By: #### B MP #### [facility] [address] [place] [address] Dr. Jessie Cheney CBC AUTO DIFFon 08-17-2021 BASO # 0.1 103/ul Normal 0.0-0.1 [facility] Comment on above: Performed By: #### T SH, FT3 #### [facility] [address] [place] [address] Dr. Jessie Cheney Basophils/100 WBC (Bld) 0.6 % Normal 0.2-2.0 [facility] Comment on above: Performed By: #### T SH, FT3 #### [facility] [address] [place] [address] Dr. Jessie Cheney EO # 0.3 103/ul Normal 0.0-0.7 [facility] Comment on above: Performed By: #### T KIRA, FT3 #### [facility] [address] [place] [address] Dr. Jessie Cheney Eosinophils/100 WBC (Bld) 2.6 % Normal 0.9-7.0 [facility] Comment on above: Performed By: #### T KIRA, FT3 #### [facility] [address] [place] [address] Dr. Jessie Cheney Erythrocyte distribution width (RBC) [Ratio] 16.7 % Critically high 11.0-15.0 [facility] Comment on above: Performed By: #### T KIRA, FT3 #### [facility] [address] [place] [address] Dr. Jessie Cheney Hematocrit (Bld) [Volume fraction] 39.9 % Normal 36.0-48.0 [facility] Comment on above: Performed By: #### T SH, FT3 #### [facility] [address] [place] [address] Dr. Jessie Cheney Hemoglobin (Bld) [Mass/Vol] 12.9 g/dL Normal 12.0-16.0 [facility] Comment on above: Performed By: #### T SH, FT3 #### [facility] [address] [place] [address] Dr. Jessie Cheney IG # 0.03 10e3/ul Normal 0.00-0.03 [facility] Comment on above: Performed By: #### T SH, FT3 #### [facility] [address] [place] [address] Dr. Jessie Cheney IG % 0.3 % Normal 0.0-0.5 [facility] Comment on above: Performed By: #### T SH, FT3 #### [facility] [address] [place] [address] Dr. Jessie Cheney LYMPH # 3.0 103/ul Normal 1.2-3.8 [facility] Comment on above: Performed By: #### T SH, FT3 #### [facility] [address] [place] [address] Dr. Jessie Cheney Lymphocytes/100 WBC (Bld) 30.6 % Normal 20.5-60.0 [facility] Comment on above: Performed By: #### T SH, FT3 #### [facility] [address] [place] [address] Dr. Jessie Cheney MANUAL DIFF REQ NO Normal [facility] Comment on above: Performed By: #### T SH, FT3 #### [facility] [address] [place] [address] Dr. Jessie Cheney MCH (RBC) [Entitic mass] 27.9 pg Normal 26.7-34.0 [facility] Comment on above: Performed By: #### T SH, FT3 #### [facility] [address] [place] [address] Dr. Jessie Cheney MCHC (RBC) [Mass/Vol] 32.3 g/dL Normal 29.9-35.2 [facility] Comment on above: Performed By: #### T SH, FT3 #### [facility] [address] [place] [address] Dr. Jessie Cheney MCV (RBC) [Entitic vol] 86.4 fL Normal 81.0-99.0 [facility] Comment on above: Performed By: #### T SH, FT3 #### [facility] [address] [place] [address] Dr. Jessie Cheney MONO # 0.9 103/ul Critically high 0.3-0.8 [facility] Comment on above: Performed By: #### T SH, FT3 #### [facility] [address] [place] [address] Dr. Jessie Cheney Monocytes/100 WBC (Bld) 8.7 % Normal 1.7-12.0 [facility] Comment on above: Performed By: #### T SH, FT3 #### [facility] [address] [place] [address] Dr. Jessie Cheney NEUT # 5.6 103/ul Normal 1.4-6.5 [facility] Comment on above: Performed By: #### T SH, FT3 #### [facility] [address] [place] [address] Dr. Jessie Cheney Neutrophils/100 WBC (Bld) 57.2 % Normal 43.0-75.0 [facility] Comment on above: Performed By: #### T SH, FT3 #### [facility] [address] [place] [address] Dr. Jessie Cheney Platelet mean volume (Bld) [Entitic vol] 9.9 fL Normal 9.5-13.5 [facility] Comment on above: Performed By: #### T SH, FT3 #### [facility] [address] [place] [address] Dr. Jessie Cheney PLT 221 103/ul Normal 150-450 [facility] Comment on above: Performed By: #### T KIRA, FT3 #### [facility] [address] [place] [address] Dr. Jessie Cheney RBC 4.62 106/ul Normal 4.20-5.40 [facility] Comment on above: Performed By: #### T KIRA, FT3 #### [facility] [address] [place] [address] Dr. Jessie Cheney WBC 9.8 103/ul Normal 4.0-11.0 [facility] Comment on above: Performed By: #### T KIRA, FT3 #### [facility] [address] [place] [address] Dr. Jessie Cheney PROF 14(COMP METB)on 022 Albumin [Mass/Vol] 4.0 g/dL Normal 3.5-5.0 [facility] Comment on above: Performed By: #### C MP #### [facility] [address] [place] [address] Dr. Jessie Cheney Albumin/Globulin [Mass ratio] 1.2 {ratio} Normal [facility] Comment on above: Performed By: #### C MP #### [facility] [address] [place] [address] Dr. Jessie Cheney ALP [Catalytic activity/Vol] 153 U/L Critically high 38-126 [facility] Comment on above: Performed By: #### C MP #### [facility] [address] [place] [address] Dr. Jessie Cheney ALT [Catalytic activity/Vol] 30 U/L Normal 9-52 [facility] Comment on above: Performed By: #### C MP #### [facility] [address] [place] [address] Dr. Jessie Cheney Anion gap [Moles/Vol] 10.7 mmol/L Normal Th [facility] Comment on above: Performed By: #### C MP #### [facility] [address] [place] [address] Dr. Jessie Cheney AST [Catalytic activity/Vol] 12 U/L Critically low 14-36 [facility] Comment on above: Performed By: #### C MP #### [facility] [address] [place] [address] Dr. Jessie Cheney Bilirubin [Mass/Vol] 0.3 mg/dL Normal 0.2-1.3 [facility] Comment on above: Performed By: #### C MP #### [facility] [address] [place] [address] Dr. Jessie Cheney Calcium [Mass/Vol] 10.7 mg/dL Critically high 8.4-10.2 [facility] Comment on above: Performed By: #### C MP #### [facility] [address] [place] [address] Dr. Jessie Cheney Chloride [Moles/Vol] 100 mmol/L Normal 98-107 [facility] Comment on above: Performed By: #### C MP #### [facility] [address] [place] [address] Dr. Jessie Cheney CO2 [Moles/Vol] 27.5 mmol/L Normal 22.0-30.0 [facility] Comment on above: Performed By: #### C MP #### [facility] [address] [place] [address] Dr. Jessie Cheney Creatinine [Mass/Vol] 1.07 mg/dL Critically high 0.52-1.04 [facility] Comment on above: Performed By: #### C MP #### [facility] [address] [place] [address] Dr. Jessie Cheney EGFR-AF TAIWANESE >60 Normal >=60 [facility] Comment on above: Performed By: #### C MP #### [facility] [address] [place] [address] Dr. Jessie Cheney EGFR-NON AF TAIWANESE 50 mL/min/1.73m2 Critically low >=60 [facility] Comment on above: Performed By: #### C MP #### [facility] [address] [place] [address] Dr. Jessie Cheney Globulin (S) [Mass/Vol] 3.4 g/dL Normal [facility] Comment on above: Performed By: #### C MP #### [facility] [address] [address] [address] Jessie Cheney Glucose [Mass/Vol] 217 mg/dL Critically high 74-106 [facility] Comment on above: Performed By: #### C MP #### [facility] [address] [place], [place] [address] Dr. Jessie Cheney Potassium [Moles/Vol] 4.2 mmol/L Normal 3.4-5.0 [facility] Comment on above: Performed By: #### C MP #### [facility] [address] [address] [address] Jessie Cheney Protein [Mass/Vol] 7.4 g/dL Normal 6.1-8.2 [facility] Comment on above: Performed By: #### C MP #### [facility] [address] [address] [address] Jessie Cheney Sodium [Moles/Vol] 134 mmol/L Critically low 137-145 [facility] Comment on above: Performed By: #### C MP #### [facility] [address] [address] [address] Jessie Cheney Urea nitrogen [Mass/Vol] 20.0 mg/dL Critically high 7.0-17 .0 [facility] Comment on above: Performed By: #### C MP #### [facility] [address] [address] [address] Jessie Cheney Urea nitrogen/Creatinine [Mass ratio] 18.7 mg/mg Normal [facility] Comment on above: Performed By: #### C MP #### [facility] [address] [address] [address] Jessie Cheney XR CHEST 1 08-17-2021 XR CHEST 1 V EXAMINATION: XR [...] by: SENDY MEI Date: 2021-08-16 23:27 Normal [facility] GLYCOHEMOGLOBIN A1Con 2021 ADA RECOMMENDATION ADA THERAPEUTIC TARGET 6.0 - 7.0 ACTION SUGGESTED > 7.0 Normal [facility] Comment on above: Performed By: #### B MP #### [facility] [address] [address] [address] Jessie Cheney Glucose [Mass/Vol] 163 mg/dL Normal [facility] Comment on above: Performed By: #### B MP #### [facility] [address] [address] [address] Jessie Cheney HbA1c (Bld) [Mass fraction] 7.3 % Critically high <=6.0 [facility] Comment on above: Performed By: #### B MP #### [facility] [address] [address] [address] Jessie Cheney Blood anisocytosis detection Ordered By: Jarrett Loyola on 07-09-2021 Anisocytosis Ql (Bld) Moderate [facility] Hypochromia detectionOrdered By: Jarrett Loyola on 07-09-2021 Hypochromia Ql (Bld) [facility] No Panel InformationOrdered By: Jarrett Loyola on 07-09-2021 Poikilocytosis [facility] Ovalocyte detectionOrdered B y: Jarrett Loyola on 07-09-2021 Ovalocytes LM Ql (Bld) Slight [facility] Blood polychromasia detectio n by light microscopyOrdered By: Jarrett Loyola on 06-28-2021 Polychromasia LM Ql (Bld) [facility] No Panel InformationOrdered By: Jarrett Loyola on 06-28-2021 Rouleau [facility] Schistocytes [facility] PRBC LEUKOREDUCEDon 06-23-19 ABO and Rh group Nom (Bld) Cross Match Result Compatible Unit Blood Type O Pos Unit Number [id number] Status Information Transfused Product ID Red Blood Cells Product Code [id number] Cross Match Result Compatible Unit Blood Type O Pos Unit Number [id number] Status Information Transfused Product ID Red Blood Cells Product Code [id number] Normal [facility] Comment on above: Performed By: #### P RBC #### [facility] [address] [place] [address] Dr. Jessie Cheney PRBC LEUKOREDUCED Cross Match Result Compatible Unit Blood Type O Pos Unit Number [id number] Status Information Transfused Product ID Red Blood Cells Product Code [id number] Normal [facility] Comment on above: Performed By: #### C BC #### [facility] [address] [place] [address] Dr. Jessie Cheney CBC AUTO DIFFon 06-21-2021 BASO # 0.0 103/ul Normal 0.0-0.1 [facility] Comment on above: Performed By: #### C BC #### [facility] [address] [place] [address] Dr. Jessie Cheney Basophils/100 WBC (Bld) 0.3 % Normal 0.2-2.0 [facility] Comment on above: Performed By: #### C BC #### [facility] [address] [place] [address] Dr. Jessie Cheney EO # 0.2 103/ul Normal 0.0-0.7 [facility] Comment on above: Performed By: #### C BC #### [facility] [address] [place] [address] Dr. Jessie Cheney Eosinophils/100 WBC (Bld) 1.3 % Normal 0.9-7.0 [facility] Comment on above: Performed By: #### C BC #### [facility] [address] [place] [address] Dr. Jessie Cheney Erythrocyte distribution width (RBC) [Ratio] 25.4 % Critically high 11.0-15.0 [facility] Comment on above: Result Comment: 4+ A NISOCYTOSIS Performed By: #### C BC #### [facility] [address] [place] [address] Dr. Jessie Cheney Hematocrit (Bld) [Volume fraction] 33.4 % Critically low 36.0-48.0 [facility] Comment on above: Performed By: #### C BC #### [facility] [address] [address] [address] Jessie Cheney Hemoglobin (Bld) [Mass/Vol] 10.2 g/dL Critically low 12.0-16.0 [facility] Comment on above: Performed By: #### C BC #### [facility] [address] [address] [address] Jessie Cheney IG # 0.14 10e3/ul Critically high 0.00-0.03 [facility] Comment on above: Performed By: #### C BC #### [facility] [address] [place] [address] Dr. Jessie Cheney IG % 1.1 % Critically high 0.0-0.5 [facility] Comment on above: Performed By: #### C BC #### [facility] [address] [address] [address] Jessie Cheney LYMPH # 2.0 103/ul Normal 1.2-3.8 [facility] Comment on above: Performed By: #### C BC #### [facility] [address] [place] [address] Dr. Jessie Cheney Lymphocytes/100 WBC (Bld) 15.2 % Critically low 20.5-60.0 [facility] Comment on above: Performed By: #### C BC #### [facility] [address] [place] [address] Dr. Jessie Cheney MANUAL DIFF REQ NO Normal [facility] Comment on above: Performed By: #### C BC #### [facility] [address] [address] [address] Jessie Cheney MCH (RBC) [Entitic mass] 26.4 pg Critically low 26.7-34 .0 [facility] Comment on above: Performed By: #### C BC #### [facility] [address] [place] [address] Dr. Jessie Cheney MCHC (RBC) [Mass/Vol] 30.5 g/dL Normal 29.9-35.2 [facility] Comment on above: Performed By: #### C BC #### [facility] [address] [place] [address] Dr. Jessie Cheney MCV (RBC) [Entitic vol] 86.5 fL Normal 81.0-99.0 [facility] Comment on above: Performed By: #### C BC #### [facility] [address] [place] [address] Dr. Jessie Cheney MONO # 0.9 103/ul Critically high 0.3-0.8 [facility] Comment on above: Performed By: #### C BC #### [facility] [address] [place] [address] Dr. Jessie Cheney Monocytes/100 WBC (Bld) 6.9 % Normal 1.7-12.0 [facility] Comment on above: Performed By: #### C BC #### [facility] [address] [place] [address] Dr. Jessie Cheney NEUT # 9.8 103/ul Critically high 1.4-6.5 [facility] Comment on above: Performed By: #### C BC #### [facility] [address] [place] [address] Dr. Jessie Cheney Neutrophils/100 WBC (Bld) 75.2 % Critically high 43.0-75.0 [facility] Comment on above: Performed By: #### C BC #### [facility] [address] [place] [address] Dr. Jessie Cheney Platelet mean volume (Bld) [Entitic vol] 10.2 fL Normal 9.5-13.5 [facility] Comment on above: Performed By: #### C BC #### [facility] [address] [place] [address] Dr. Jessie Cheney PLT 342 103/ul Normal 150-450 [facility] Comment on above: Performed By: #### C BC #### [facility] [address] [place] [address] Dr. Jessie Cheney RBC 3.86 106/ul Critically low 4.20-5.40 [facility] Comment on above: Result Comment: JAN CELLS 2+; OVALOCYTES 1+; TEAR DROP 1+ Performed By: #### C BC #### [facility] [address] [place] [address] Dr. Jessie Cheney WBC 13.0 103/ul Critically high 4.0-11.0 [facility] Comment on above: Performed By: #### C BC #### [facility] [address] [place] [address] Dr. Jessie Cheney CBC AUTO DIFFon 06-16-2021 BASO # 0.0 103/ul Normal 0.0-0.1 [facility] Comment on above: Performed By: #### T SH, FT3 #### [facility] [address] [place] [address] Dr. Jessie Cheney Basophils/100 WBC (Bld) 0.2 % Normal 0.2-2.0 [facility] Comment on above: Performed By: #### T SH, FT3 #### [facility] [address] [place] [address] Dr. Jessie Cheney EO # 0.0 103/ul Normal 0.0-0.7 [facility] Comment on above: Performed By: #### T SH, FT3 #### [facility] [address] [place] [address] Dr. Jessie Cheney Eosinophils/100 WBC (Bld) 0.0 % Critically low 0.9-7.0 [facility] Comment on above: Performed By: #### T , FT3 #### [facility] [address] [place] [address] Dr. Jessie Cheney Erythrocyte distribution width (RBC) [Ratio] 22.0 % Critically high 11.0-15.0 [facility] Comment on above: Performed By: #### T SH, FT3 #### [facility] [address] [place] [address] Dr. Jessie Cheney Hematocrit (Bld) [Volume fraction] 25.1 % Critically low 36.0-48.0 [facility] Comment on above: Performed By: #### T SH, FT3 #### [facility] [address] [address] [address] Jessie Cheney Hemoglobin (Bld) [Mass/Vol] 7.7 g/dL Critically low 12.0-16.0 [facility] Comment on above: Performed By: #### T SH, FT3 #### [facility] [address] [place] [address] Dr. Jessie Cheney IG # 0.28 10e3/ul Critically high 0.00-0.03 [facility] Comment on above: Performed By: #### T SH, FT3 #### [facility] [address] [place] [address] Dr. Jessie Cheney IG % 1.9 % Critically high 0.0-0.5 [facility] Comment on above: Performed By: #### T SH, FT3 #### [facility] [address] [place] [address] Dr. Jessie Cheney LYMPH # 1.7 103/ul Normal 1.2-3.8 [facility] Comment on above: Performed By: #### T SH, FT3 #### [facility] [address] [place] [address] Dr. Jessie Cheney Lymphocytes/100 WBC (Bld) 11.2 % Critically low 20.5-60.0 [facility] Comment on above: Performed By: #### T SH, FT3 #### [facility] [address] [place] [address] Dr. Jessie Cheney MANUAL DIFF REQ NO Normal [facility] Comment on above: Performed By: #### T SH, FT3 #### [facility] [address] [place] [address] Dr. Jessie Cheney MCH (RBC) [Entitic mass] 24.9 pg Critically low 26.7-34 .0 [facility] Comment on above: Performed By: #### T SH, FT3 #### [facility] [address] [place] [address] Dr. Jessie Cheney MCHC (RBC) [Mass/Vol] 30.7 g/dL Normal 29.9-35.2 [facility] Comment on above: Performed By: #### T SH, FT3 #### [facility] [address] [place] [address] Dr. Jessie Cheney MCV (RBC) [Entitic vol] 81.2 fL Normal 81.0-99.0 [facility] Comment on above: Performed By: #### T SH, FT3 #### [facility] [address] [place] [address] Dr. Jessie Cheney MONO # 0.8 103/ul Normal 0.3-0.8 [facility] Comment on above: Performed By: #### T KIRA, FT3 #### [facility] [address] [place] [address] Dr. Jessie Cheney Monocytes/100 WBC (Bld) 5.4 % Normal 1.7-12.0 [facility] Comment on above: Performed By: #### T KIRA, FT3 #### [facility] [address] [place] [address] Dr. Jessie Cheney NEUT # 12.0 103/ul Critically high 1.4-6.5 [facility] Comment on above: Performed By: #### T KIRA, FT3 #### [facility] [address] [place] [address] Dr. Jessie Cheney Neutrophils/100 WBC (Bld) 81.3 % Critically high 43.0-75.0 [facility] Comment on above: Performed By: #### T KIRA, FT3 #### [facility] [address] [place] [address] Dr. Jessie Cheney Platelet mean volume (Bld) [Entitic vol] 11.0 fL Normal 9.5-13.5 [facility] Comment on above: Performed By: #### T KIRA, FT3 #### [facility] [address] [place] [address] Dr. Jessie Cheney PLT 307 103/ul Normal 150-450 [facility] Comment on above: Performed By: #### T KIRA, FT3 #### [facility] [address] [place] [address] Dr. Jessie Cheney RBC 3.09 106/ul Critically low 4.20-5.40 [facility] Comment on above: Performed By: #### T SH, FT3 #### [facility] [address] [place] [address] Dr. Jessie Cheney WBC 14.8 103/ul Critically high 4.0-11.0 [facility] Comment on above: Performed By: #### T KIRA, FT3 #### [facility] [address] [place] [address] Dr. Jessie Cheney PROF CHEM 8 (BAS METB)on Anion gap [Moles/Vol] 14.2 mmol/L Normal [facility] Comment on above: Performed By: #### B MP #### [facility] [address] [place] [address] Dr. Jessie Cheney Calcium [Mass/Vol] 9.6 mg/dL Normal 8.4-10.2 [facility] Comment on above: Performed By: #### B MP #### [facility] [address] [place] [address] Dr. Jessie Cheney Chloride [Moles/Vol] 103 mmol/L Normal 98-107 [facility] Comment on above: Performed By: #### B MP #### [facility] [address] [place] [address] Dr. Jessie Cheney CO2 [Moles/Vol] 23.0 mmol/L Normal 22.0-30.0 [facility] Comment on above: Performed By: #### B MP #### [facility] [address] [place] [address] Dr. Jessie Cheney Creatinine [Mass/Vol] 0.81 mg/dL Normal 0.52-1.04 [facility] Comment on above: Performed By: #### B MP #### [facility] [address] [place] [address] Dr. Jessie Cheney EGFR-AF TAIWANESE >60 Normal >=60 [facility] Comment on above: Performed By: #### B MP #### [facility] [address] [place] [address] Dr. Jessie Cheney EGFR-NON AF TAIWANESE >60 Normal >=60 [facility] Comment on above: Performed By: #### B MP #### [facility] [address] [place] [address] Dr. Jessie Cheney Glucose [Mass/Vol] 230 mg/dL Critically high 74-106 [facility] Comment on above: Performed By: #### B MP #### [facility] [address] [place] [address] Dr. Jessie Cheney Potassium [Moles/Vol] 4.2 mmol/L Normal 3.4-5.0 [facility] Comment on above: Performed By: #### B MP #### [facility] [address] [place] [address] Dr. Jessie Cheney Sodium [Moles/Vol] 136 mmol/L Critically low 137-145 [facility] Comment on above: Performed By: #### B MP #### [facility] [address] [place] [address] Dr. Jessie Cheney Urea nitrogen [Mass/Vol] 16.0 mg/dL Normal 7.0-17.0 [facility] Comment on above: Performed By: #### B MP #### [facility] [address] [place] [address] Dr. Jessie Cheney Urea nitrogen/Creatinine [Mass ratio] 19.8 mg/mg Normal [facility] Comment on above: Performed By: #### B MP #### [facility] [address] [place] [address] Dr. Jessie Cheney CBC AUTO DIFFon 06-15-2021 BASO # 0.1 103/ul Normal 0.0-0.1 [facility] Comment on above: Performed By: #### C BC #### [facility] [address] [place] [address] Dr. Jessie Cheney Basophils/100 WBC (Bld) 0.6 % Normal 0.2-2.0 [facility] Comment on above: Performed By: #### C BC #### [facility] [address] [place] [address] Dr. Jessie Cheney EO # 0.2 103/ul Normal 0.0-0.7 [facility] Comment on above: Performed By: #### C BC #### [facility] [address] [place] [address] Dr. Jessie Cheney Eosinophils/100 WBC (Bld) 2.1 % Normal 0.9-7.0 [facility] Comment on above: Performed By: #### C BC #### [facility] [address] [place] [address] Dr. Jessie Cheney Erythrocyte distribution width (RBC) [Ratio] 21.4 % Critically high 11.0-15.0 [facility] Comment on above: Performed By: #### C BC #### [facility] [address] [place] [address] Dr. Jessie Cheney Hematocrit (Bld) [Volume fraction] 25.4 % Critically low 36.0-48.0 [facility] Comment on above: Performed By: #### C BC #### [facility] [address] [place] [address] Dr. Jessie Cheney Hemoglobin (Bld) [Mass/Vol] 7.7 g/dL Critically low 12.0-16.0 [facility] Comment on above: Performed By: #### C BC #### [facility] [address] [place] [address] Dr. Jessie Cheney IG # 0.10 10e3/ul Critically high 0.00-0.03 [facility] Comment on above: Performed By: #### C BC #### [facility] [address] [place] [address] Dr. Jessie Cheney IG % 0.9 % Critically high 0.0-0.5 [facility] Comment on above: Performed By: #### C BC #### [facility] [address] [place] [address] Dr. Jessie Cheney LYMPH # 3.0 103/ul Normal 1.2-3.8 [facility] Comment on above: Performed By: #### C BC #### [facility] [address] [place] [address] Dr. Jessie Cheney Lymphocytes/100 WBC (Bld) 28.1 % Normal 20.5-60.0 [facility] Comment on above: Performed By: #### C BC #### [facility] [address] [place] [address] Dr. Jessie Cheney MANUAL DIFF REQ NO Normal [facility] Comment on above: Performed By: #### C BC #### [facility] [address] [place] [address] Dr. Jessie Cheney MCH (RBC) [Entitic mass] 24.8 pg Critically low 26.7-34 .0 [facility] Comment on above: Performed By: #### C BC #### [facility] [address] [place] [address] Dr. Jessie Cheney MCHC (RBC) [Mass/Vol] 30.3 g/dL Normal 29.9-35.2 [facility] Comment on above: Performed By: #### C BC #### [facility] [address] [place] [address] Dr. Jessie Cheney MCV (RBC) [Entitic vol] 81.9 fL Normal 81.0-99.0 [facility] Comment on above: Performed By: #### C BC #### [facility] [address] [place] [address] Dr. Jessie Cheney MONO # 1.0 103/ul Critically high 0.3-0.8 [facility] Comment on above: Performed By: #### C BC #### [facility] [address] [place] [address] Dr. Jessie Cheney Monocytes/100 WBC (Bld) 9.2 % Normal 1.7-12.0 [facility] Comment on above: Performed By: #### C BC #### [facility] [address] [place] [address] Dr. Jessie Cheney NEUT # 6.3 103/ul Normal 1.4-6.5 [facility] Comment on above: Performed By: #### C BC #### [facility] [address] [place] [address] Dr. Jessie Cheney Neutrophils/100 WBC (Bld) 59.1 % Normal 43.0-75.0 [facility] Comment on above: Performed By: #### C BC #### [facility] [address] [place] [address] Dr. Jessie Cheney Platelet mean volume (Bld) [Entitic vol] 10.7 fL Normal 9.5-13.5 [facility] Comment on above: Performed By: #### C BC #### [facility] [address] [address] [address] Jessie Cheney PLT 261 103/ul Normal 150-450 [facility] Comment on above: Performed By: #### C BC #### [facility] [address] [place] [address] Dr. Jessie Cheney RBC 3.10 106/ul Critically low 4.20-5.40 [facility] Comment on above: Performed By: #### C BC #### [facility] [address] [place] [address] Dr. Jessie Cheney WBC 10.7 103/ul Normal 4.0-11.0 [facility] Comment on above: Performed By: #### C BC #### [facility] [address] [place] [address] Dr. Jessie Cheney DIRECT COOMBSon 06-15-2021 DIRECT DARINEL Negative Normal [facility] Comment on above: Performed By: #### C BC #### [facility] [address] [place] [address] Dr. Jessie Cheney HAPTOGLOBINon 06-15-2021 Haptoglobin 199 mg/dL Normal 42-346 [facility] Comment on above: Performed By: #### B MP #### [facility] [address] [place] [address] Dr. Jessie Cheney POINT OF CARE GLUCOSEon 05-20 Glucose [Mass/Vol] 117 mg/dL Critically high 74-106 [facility] Comment on above: Performed By: #### B MP #### [facility] [address] [place] [address] Dr. Jessie Cheney PROF CHEM 8 (BAS METB)on Anion gap [Moles/Vol] 10.4 mmol/L Normal [facility] Comment on above: Performed By: #### B MP #### [facility] [address] [place] [address] Dr. Jessie Cheney Calcium [Mass/Vol] 9.7 mg/dL Normal 8.4-10.2 [facility] Comment on above: Performed By: #### B MP #### [facility] [address] [address] [address] Jessie Cheney Chloride [Moles/Vol] 106 mmol/L Normal 98-107 [facility] Comment on above: Performed By: #### B MP #### [facility] [address] [place] [address] Dr. Jessie Cheney CO2 [Moles/Vol] 26.1 mmol/L Normal 22.0-30.0 [facility] Comment on above: Performed By: #### B MP #### [facility] [address] [place] [address] Dr. Jessie Cheney Creatinine [Mass/Vol] 0.75 mg/dL Normal 0.52-1.04 [facility] Comment on above: Performed By: #### B MP #### [facility] [address] [place] [address] Dr. Jessie Cheney EGFR-AF TAIWANESE >60 Normal >=60 [facility] Comment on above: Performed By: #### B MP #### [facility] [address] [place] [address] Dr. Jessie Cheney EGFR-NON AF TAIWANESE >60 Normal >=60 [facility] Comment on above: Performed By: #### B MP #### [facility] [address] [place] [address] Dr. Jessie Cheney Glucose [Mass/Vol] 108 mg/dL Critically high 74-106 [facility] Comment on above: Performed By: #### B MP #### [facility] [address] [place] [address] Dr. Jessie Cheney Potassium [Moles/Vol] 3.5 mmol/L Normal 3.4-5.0 [facility] Comment on above: Performed By: #### B MP #### [facility] [address] [address] [address] Jessie Cheney Sodium [Moles/Vol] 139 mmol/L Normal 137-145 [facility] Comment on above: Performed By: #### B MP #### [facility] [address] [place] [address] Dr. Jessie Cheney Urea nitrogen [Mass/Vol] 14.0 mg/dL Normal 7.0-17.0 [facility] Comment on above: Performed By: #### B MP #### [facility] [address] [place] [address] Dr. Jessie Cheney Urea nitrogen/Creatinine [Mass ratio] 18.7 mg/mg Normal [facility] Comment on above: Performed By: #### B MP #### [facility] [address] [place] [address] Dr. Jessie Cheney CBC AUTO DIFFon 06-14-2021 BASO # 0.1 103/ul Normal 0.0-0.1 [facility] Comment on above: Performed By: #### B MP #### [facility] [address] [place] [address] Dr. Jessie Cheney Basophils/100 WBC (Bld) 0.5 % Normal 0.2-2.0 [facility] Comment on above: Performed By: #### B MP #### [facility] [address] [place] [address] Dr. Jsesie Cheney EO # 0.1 103/ul Normal 0.0-0.7 [facility] Comment on above: Performed By: #### B MP #### [facility] [address] [place] [address] Dr. Jessie Cheney Eosinophils/100 WBC (Bld) 1.1 % Normal 0.9-7.0 [facility] Comment on above: Performed By: #### B MP #### [facility] [address] [place] [address] Dr. Jessie Cheney Erythrocyte distribution width (RBC) [Ratio] 20.6 % Critically high 11.0-15.0 [facility] Comment on above: Performed By: #### B MP #### [facility] [address] [address] [address] Jessie Cheney Hematocrit (Bld) [Volume fraction] 25.2 % Critically low 36.0-48.0 [facility] Comment on above: Performed By: #### B MP #### [facility] [address] [address] [address] Jessie Cheney Hemoglobin (Bld) [Mass/Vol] 7.8 g/dL Critically low 12.0-16.0 [facility] Comment on above: Performed By: #### B MP #### [facility] [address] [address] [address] Jessie Cheney IG # 0.10 10e3/ul Critically high 0.00-0.03 [facility] Comment on above: Performed By: #### B MP #### [facility] [address] [address] [address] Jessie Cheney IG % 0.8 % Critically high 0.0-0.5 [facility] Comment on above: Performed By: #### B MP #### [facility] [address] [address] [address] Jessie Cheney LYMPH # 2.9 103/ul Normal 1.2-3.8 [facility] Comment on above: Performed By: #### B MP #### [facility] [address] [address] [address] Jessie Cheney Lymphocytes/100 WBC (Bld) 24.0 % Normal 20.5-60.0 [facility] Comment on above: Performed By: #### B MP #### [facility] [address] [address] [address] Jessie Cheney MANUAL DIFF REQ NO Normal [facility] Comment on above: Performed By: #### B MP #### [facility] [address] [place] [address] Dr. Jessie Cheney MCH (RBC) [Entitic mass] 24.9 pg Critically low 26.7-34 .0 [facility] Comment on above: Performed By: #### B MP #### [facility] [address] [address] [address] Jessie Cheney MCHC (RBC) [Mass/Vol] 31.0 g/dL Normal 29.9-35.2 [facility] Comment on above: Performed By: #### B MP #### [facility] [address] [address] [address] Jessie Cheney MCV (RBC) [Entitic vol] 80.5 fL Critically low 81.0-99. 0 [facility] Comment on above: Performed By: #### B MP #### [facility] [address] [address] [address] Jessie Cheney MONO # 1.1 103/ul Critically high 0.3-0.8 [facility] Comment on above: Performed By: #### B MP #### [facility] [address] [place] [address] Dr. Jessie Cheney Monocytes/100 WBC (Bld) 8.9 % Normal 1.7-12.0 [facility] Comment on above: Performed By: #### B MP #### [facility] [address] [place] [address] Dr. Jessie Cheney NEUT # 7.8 103/ul Critically high 1.4-6.5 [facility] Comment on above: Performed By: #### B MP #### [facility] [address] [place] [address] Dr. Jessie Cheney Neutrophils/100 WBC (Bld) 64.7 % Normal 43.0-75.0 [facility] Comment on above: Performed By: #### B MP #### [facility] [address] [address] [address] Jessie Cheney Platelet mean volume (Bld) [Entitic vol] 10.7 fL Normal 9.5-13.5 [facility] Comment on above: Performed By: #### B MP #### [facility] [address] [place] [address] Dr. Jessie Cheney PLT 248 103/ul Normal 150-450 [facility] Comment on above: Performed By: #### B MP #### [facility] [address] [address] [address] Jessie Cheney RBC 3.13 106/ul Critically low 4.20-5.40 [facility] Comment on above: Performed By: #### B MP #### [facility] [address] [place] [address] Dr. Jessie Cheney WBC 12.1 103/ul Critically high 4.0-11.0 [facility] Comment on above: Performed By: #### B MP #### [facility] [address] [address] [address] Jessie Cheney DIRECT COOMBSon 06-14-2021 DIRECT DARINEL Negative Normal [facility] Comment on above: Performed By: #### C BC #### [facility] [address] [place] [address] Dr. Jessie Cheney FERRITINon 06-14-2021 Ferritin [Mass/Vol] 117.0 ng/mL Normal 11.1-264.0 [facility] Comment on above: Performed By: #### T SH, FT3 #### [facility] [address] [place] [address] Dr. Jessie Cheney H PYLORI ANTIBODYon 06-14-20 21 H PYLORI Negative Normal NEGATIVE [facility] Comment on above: Performed By: #### H PYL #### [facility] [address] [place] [address] Dr. Jessie Cheney NM GI BLEEDon 06-14-2021 [...] ESTUARDO MALIK Date: 2021-06-14 11:06 Normal [facility] POINT OF CARE GLUCOSEon 05-20 Glucose [Mass/Vol] 290 mg/dL Critically high 74-106 T [facility] Comment on above: Performed By: #### B MP #### [facility] [address] [place] [address] Dr. Jessie Cheney RETICULOCYTEon 06-14-2021 RETIC 2.96 % Normal 0.60-3.10 [facility] Comment on above: Performed By: #### B MP #### [facility] [address] [place] [address] Dr. Jessie Cheney VIT B12 AND FOLATEon 021 Cobalamin (Vitamin B12) [Mass/Vol] 364.0 pg/mL Normal 239.0-931.0 [facility] Comment on above: Performed By: #### B MP #### [facility] [address] [place] [address] Dr. Jessie Cheney FOLATE 15.10 ng/mL Normal >=2.76 [facility] Comment on above: Performed By: #### B MP #### [facility] [address] [place] [address] Dr. Jessie Cheney CBC AUTO DIFFon 06-13-2021 BASO # 0.0 103/ul Normal 0.0-0.1 [facility] Comment on above: Performed By: #### C BC #### [facility] [address] [place] [address] Dr. Jessie Cheney Basophils/100 WBC (Bld) 0.2 % Normal 0.2-2.0 [facility] Comment on above: Performed By: #### C BC #### [facility] [address] [place] [address] Dr. Jessie Cheney EO # 0.0 103/ul Normal 0.0-0.7 [facility] Comment on above: Performed By: #### C BC #### [facility] [address] [place] [address] Dr. Jessie Cheney Eosinophils/100 WBC (Bld) 0.2 % Critically low 0.9-7.0 [facility] Comment on above: Performed By: #### C BC #### [facility] [address] [place] [address] Dr. Jessie Cheney Erythrocyte distribution width (RBC) [Ratio] 21.6 % Critically high 11.0-15.0 [facility] Comment on above: Performed By: #### C BC #### [facility] [address] [place] [address] Dr. Jessie Cheney Hematocrit (Bld) [Volume fraction] 19.4 % Critically low 36.0-48.0 [facility] Comment on above: Result Comment: test repeated critical value verified Performed By: #### C BC #### [facility] [address] [place] [address] Dr. Jessie Cheney Hemoglobin (Bld) [Mass/Vol] 6.1 g/dL Critically low 12.0-16.0 [facility] Comment on above: Result Comment: test repeated critical value verified Performed By: #### C BC #### [facility] [address] [place] [address] Dr. Jessie Cheney IG # 0.12 10e3/ul Critically high 0.00-0.03 [facility] Comment on above: Performed By: #### C BC #### [facility] [address] [place] [address] Dr. Jessie Cheney IG % 0.9 % Critically high 0.0-0.5 [facility] Comment on above: Performed By: #### C BC #### [facility] [address] [place] [address] Dr. Jessie Cheney LYMPH # 3.4 103/ul Normal 1.2-3.8 [facility] Comment on above: Performed By: #### C BC #### [facility] [address] [place] [address] Dr. Jessie Cheney Lymphocytes/100 WBC (Bld) 24.5 % Normal 20.5-60.0 [facility] Comment on above: Performed By: #### C BC #### [facility] [address] [place] [address] Dr. Jessie Cheney MANUAL DIFF REQ NO Normal [facility] Comment on above: Performed By: #### C BC #### [facility] [address] [place] [address] Dr. Jessie Cheney MCH (RBC) [Entitic mass] 24.0 pg Critically low 26.7-34 .0 [facility] Comment on above: Performed By: #### C BC #### [facility] [address] [place] [address] Dr. Jessie Cheney MCHC (RBC) [Mass/Vol] 31.4 g/dL Normal 29.9-35.2 [facility] Comment on above: Performed By: #### C BC #### [facility] [address] [address] [address] Jessie Cheney MCV (RBC) [Entitic vol] 76.4 fL Critically low 81.0-99. 0 [facility] Comment on above: Performed By: #### C BC #### [facility] [address] [place] [address] Dr. Jessie Cheney MONO # 1.3 103/ul Critically high 0.3-0.8 [facility] Comment on above: Performed By: #### C BC #### [facility] [address] [place] [address] Dr. Jessie Cheney Monocytes/100 WBC (Bld) 9.6 % Normal 1.7-12.0 [facility] Comment on above: Performed By: #### C BC #### [facility] [address] [place] [address] Dr. Jessie Cheney NEUT # 8.9 103/ul Critically high 1.4-6.5 [facility] Comment on above: Performed By: #### C BC #### [facility] [address] [place] [address] Dr. Jessie Cheney Neutrophils/100 WBC (Bld) 64.6 % Normal 43.0-75.0 [facility] Comment on above: Performed By: #### C BC #### [facility] [address] [place] [address] Dr. Jessie Cheney Platelet mean volume (Bld) [Entitic vol] 10.3 fL Normal 9.5-13.5 [facility] Comment on above: Performed By: #### C BC #### [facility] [address] [place] [address] Dr. Jessie Cheney PLT 246 103/ul Normal 150-450 [facility] Comment on above: Performed By: #### C BC #### [facility] [address] [place] [address] Dr. Jessie Cheney RBC 2.54 106/ul Critically low 4.20-5.40 [facility] Comment on above: Performed By: #### C BC #### [facility] [address] [place] [address] Dr. Jessie Cheney WBC 13.8 103/ul Critically high 4.0-11.0 [facility] Comment on above: Performed By: #### C BC #### [facility] [address] [place] [address] Dr. Jessie Cheney HEMOGLOBIN AND HEMATOCRITon 06-13-2021 Hematocrit (Bld) [Volume fraction] 26.5 % Critically low 36.0-48.0 [facility] Comment on above: Performed By: #### T SH, FT3 #### [facility] [address] [place] [address] Dr. Jessie Cheney Hemoglobin (Bld) [Mass/Vol] 8.4 g/dL Critically low 12.0-16.0 [facility] Comment on above: Performed By: #### T , FT3 #### [facility] [address] [place] [address] Dr. Jessie Cheney Hematocrit (Bld) [Volume fraction] 25.9 % Critically low 36.0-48.0 [facility] Comment on above: Performed By: #### B MP #### [facility] [address] [place] [address] Dr. Jessie Cheney Hemoglobin (Bld) [Mass/Vol] 8.0 g/dL Critically low 12.0-16.0 [facility] Comment on above: Performed By: #### B MP #### [facility] [address] [place] [address] Dr. Jessie Cheney CBC AUTO DIFFon 06-12-2021 BASO # 0.0 103/ul Normal 0.0-0.1 [facility] Comment on above: Performed By: #### B MP #### [facility] [address] [address] [address] Jessie Cheney Basophils/100 WBC (Bld) 0.2 % Normal 0.2-2.0 [facility] Comment on above: Performed By: #### B MP #### [facility] [address] [address] [address] Jessie Cheney EO # 0.0 103/ul Normal 0.0-0.7 [facility] Comment on above: Performed By: #### B MP #### [facility] [address] [address] [address] Jessie Cheney Eosinophils/100 WBC (Bld) 0.0 % Critically low 0.9-7.0 [facility] Comment on above: Performed By: #### B MP #### [facility] [address] [address] [address] Jessie Cheney Erythrocyte distribution width (RBC) [Ratio] 21.2 % Critically high 11.0-15.0 [facility] Comment on above: Performed By: #### B MP #### [facility] [address] [address] [address] Jessie Cheney Hematocrit (Bld) [Volume fraction] 25.7 % Critically low 36.0-48.0 [facility] Comment on above: Performed By: #### B MP #### [facility] [address] [address] [address] Jessie Cheney Hemoglobin (Bld) [Mass/Vol] 7.9 g/dL Critically low 12.0-16.0 [facility] Comment on above: Performed By: #### B MP #### [facility] [address] [address] [address] Jessie Cheney IG # 0.26 10e3/ul Critically high 0.00-0.03 [facility] Comment on above: Performed By: #### B MP #### [facility] [address] [address] [address] Jessie Cheney IG % 1.5 % Critically high 0.0-0.5 [facility] Comment on above: Performed By: #### B MP #### [facility] [address] [address] [address] Jessie Cheney LYMPH # 1.6 103/ul Normal 1.2-3.8 [facility] Comment on above: Performed By: #### B MP #### [facility] [address] [place] [address] Dr. Jessie Cheney Lymphocytes/100 WBC (Bld) 9.6 % Critically low 20.5-60.0 [facility] Comment on above: Performed By: #### B MP #### [facility] [address] [place] [address] Dr. Jessie Cheney MANUAL DIFF REQ NO Normal [facility] Comment on above: Performed By: #### B MP #### [facility] [address] [place] [address] Dr. Jessie Cheney MCH (RBC) [Entitic mass] 23.7 pg Critically low 26.7-34 .0 [facility] Comment on above: Performed By: #### B MP #### [facility] [address] [place] [address] Dr. Jessie Cheney MCHC (RBC) [Mass/Vol] 30.7 g/dL Normal 29.9-35.2 [facility] Comment on above: Performed By: #### B MP #### [facility] [address] [place] [address] Dr. Jessie Cheney MCV (RBC) [Entitic vol] 76.9 fL Critically low 81.0-99. 0 [facility] Comment on above: Performed By: #### B MP #### [facility] [address] [place] [address] Dr. Jessie Cheney MONO # 0.2 103/ul Critically low 0.3-0.8 [facility] Comment on above: Performed By: #### B MP #### [facility] [address] [place] [address] Dr. Jessie Cheney Monocytes/100 WBC (Bld) 1.0 % Critically low 1.7-12.0 [facility] Comment on above: Performed By: #### B MP #### [facility] [address] [address] [address] Jessie Cehney NEUT # 14.8 103/ul Critically high 1.4-6.5 [facility] Comment on above: Performed By: #### B MP #### [facility] [address] [address] [address] Jessie Cheney Neutrophils/100 WBC (Bld) 87.7 % Critically high 43.0-75.0 [facility] Comment on above: Performed By: #### B MP #### [facility] [address] [address] [address] Jessie Cheney Platelet mean volume (Bld) [Entitic vol] 10.5 fL Normal 9.5-13.5 [facility] Comment on above: Performed By: #### B MP #### [facility] [address] [address] [address] Jessie Cheeny PLT 275 103/ul Normal 150-450 [facility] Comment on above: Performed By: #### B MP #### [facility] [address] [address] [address] Jessie Cheney RBC 3.34 106/ul Critically low 4.20-5.40 [facility] Comment on above: Performed By: #### B MP #### [facility] [address] [address] [address] Jessie Cheney WBC 16.9 103/ul Critically high 4.0-11.0 [facility] Comment on above: Performed By: #### B MP #### [facility] [address] [address] [address] Jessie Cheney BASO # 0.0 103/ul Normal 0.0-0.1 [facility] Comment on above: Performed By: #### B MP #### [facility] [address] [address] [address] Jessie Cheney Basophils/100 WBC (Bld) 0.3 % Normal 0.2-2.0 [facility] Comment on above: Performed By: #### B MP #### [facility] [address] [address] [address] Jessie Cheney EO # 0.1 103/ul Normal 0.0-0.7 [facility] Comment on above: Performed By: #### B MP #### [facility] [address] [place] [address] Dr. Jessie Cheney Eosinophils/100 WBC (Bld) 0.8 % Critically low 0.9-7.0 [facility] Comment on above: Performed By: #### B MP #### [facility] [address] [place] [address] Dr. Jessie Cheney Erythrocyte distribution width (RBC) [Ratio] 23.4 % Critically high 11.0-15.0 [facility] Comment on above: Performed By: #### B MP #### [facility] [address] [place] [address] Dr. Jessie Cheney Hematocrit (Bld) [Volume fraction] 20.2 % Critically low 36.0-48.0 [facility] Comment on above: Result Comment: Test Repeated. Critical Value Verified. Performed By: #### B MP #### [facility] [address] [place] [address] Dr. Jessie Cheney Hemoglobin (Bld) [Mass/Vol] 5.7 g/dL Critically low 12.0-16.0 [facility] Comment on above: Result Comment: Test Repeated. Critical Value Verified. Performed By: #### B MP #### [facility] [address] [place] [address] Dr. Jessie Cheney IG # 0.10 10e3/ul Critically high 0.00-0.03 [facility] Comment on above: Performed By: #### B MP #### [facility] [address] [place] [address] Dr. Jessie Cheney IG % 0.7 % Critically high 0.0-0.5 [facility] Comment on above: Performed By: #### B MP #### [facility] [address] [place] [address] Dr. Jessie Cheney LYMPH # 3.7 103/ul Normal 1.2-3.8 [facility] Comment on above: Performed By: #### B MP #### [facility] [address] [address] [address] Jessie Cheney Lymphocytes/100 WBC (Bld) 25.4 % Normal 20.5-60.0 [facility] Comment on above: Performed By: #### B MP #### [facility] [address] [address] [address] Jessie Cheney MANUAL DIFF REQ NO Normal [facility] Comment on above: Performed By: #### B MP #### [facility] [address] [address] [address] Jessie Cheney MCH (RBC) [Entitic mass] 20.3 pg Critically low 26.7-34 .0 [facility] Comment on above: Performed By: #### B MP #### [facility] [address] [place] [address] Dr. Jessie Cheney MCHC (RBC) [Mass/Vol] 28.2 g/dL Critically low 29.9-35.2 [facility] Comment on above: Performed By: #### B MP #### [facility] [address] [address] [address] Jessie Cheney MCV (RBC) [Entitic vol] 71.9 fL Critically low 81.0-99. 0 [facility] Comment on above: Performed By: #### B MP #### [facility] [address] [address] [address] Jessie Cheney MONO # 1.2 103/ul Critically high 0.3-0.8 [facility] Comment on above: Performed By: #### B MP #### [facility] [address] [address] [address] Jessie Cheney Monocytes/100 WBC (Bld) 7.8 % Normal 1.7-12.0 [facility] Comment on above: Performed By: #### B MP #### [facility] [address] [address] [address] Jessie Cheney NEUT # 9.5 103/ul Critically high 1.4-6.5 [facility] Comment on above: Performed By: #### B MP #### [facility] [address] [address] [address] Jessie Cheney Neutrophils/100 WBC (Bld) 65.0 % Normal 43.0-75.0 [facility] Comment on above: Performed By: #### B MP #### [facility] [address] [address] [address] Jessie Cheney Platelet mean volume (Bld) [Entitic vol] 10.6 fL Normal 9.5-13.5 [facility] Comment on above: Performed By: #### B MP #### [facility] [address] [address] [address] Jessie Cheney PLT 373 103/ul Normal 150-450 [facility] Comment on above: Performed By: #### B MP #### [facility] [address] [place] [address] Dr. Jessie Cheney RBC 2.81 106/ul Critically low 4.20-5.40 [facility] Comment on above: Performed By: #### B MP #### [facility] [address] [address] [address] Jessie Cheney WBC 14.7 103/ul Critically high 4.0-11.0 [facility] Comment on above: Performed By: #### B MP #### [facility] [address] [place] [address] Dr. Jessie Cheney [facility] SARS-CoV-2 (COVID-19) RNA RADHIKA+probe Ql (Unsp spec) Not detected Normal NOT DETECTED [facility] Comment on above: Result Comment: This test is not yet approved or cleared by the [place] FDA. When there are no FDA-approved or cleared tests available, and other criteria are met, FDA can make tests available under an emergency access mechanism called an Emergency Use Authorization (EUA). The EUA for this test is supported by the [employer] Operator of Health and Human Service's (HHS's) declaration [...] SARS-CoV-2. Performed By: #### B MP #### [facility] [address] [place] [address] Dr. Jessie Cheney FREE T3on 06-12-2021 FREE T3 1.59 pg/mlL Critically low 2.77-5.27 [facility] Comment on above: Performed By: #### T SH, FT3 #### [facility] [address] [place] [address] Dr. Jessie Cheney FREE T4on 06-12-2021 Free T4 [Mass/Vol] 0.94 ng/dL Normal 0.78-2.19 [facility] Comment on above: Performed By: #### C BC #### [facility] [address] [place] [address] Dr. Jessie Cheney IRON AND TIBCon 06-12-2021 % SATURATION 11.2 % Normal [facility] Comment on above: Performed By: #### T SH, FT3 #### [facility] [address] [place] [address] Dr. Jessie Cheney Iron [Mass/Vol] 43.0 ug/dL Normal 37.0-170.0 [facility] Comment on above: Performed By: #### T SH, FT3 #### [facility] [address] [place] [address] Dr. Jessie Cheney TIBC DIRECT 384.0 ug/dL Normal 261.0-497.0 [facility] Comment on above: Performed By: #### T SH, FT3 #### [facility] [address] [place] [address] Dr. Jessie Cheney LIVER PROFILEon 06-12-2021 Albumin [Mass/Vol] 3.2 g/dL Critically low 3.5-5.0 [facility] Comment on above: Performed By: #### C BC #### [facility] [address] [place] [address] Dr. Jessie Cheney Albumin/Globulin [Mass ratio] 1.1 {ratio} Normal [facility] Comment on above: Performed By: #### C BC #### [facility] [address] [place] [address] Dr. Jessie Cheney ALP [Catalytic activity/Vol] 95 U/L Normal 38-126 [facility] Comment on above: Performed By: #### C BC #### [facility] [address] [place] [address] Dr. Jessie Cheney ALT [Catalytic activity/Vol] 31 U/L Normal 9-52 [facility] Comment on above: Performed By: #### C BC #### [facility] [address] [place] [address] Dr. Jessie Cheney AST [Catalytic activity/Vol] 13 U/L Critically low 14-36 [facility] Comment on above: Performed By: #### C BC #### [facility] [address] [place] [address] Dr. Jessie Cheney BILI, CONJUGATED 0.1 mg/dL Normal 0.0-0.3 [facility] Comment on above: Performed By: #### C BC #### [facility] [address] [place] [address] Dr. Jessie Cheney Bilirubin [Mass/Vol] 0.2 mg/dL Normal 0.2-1.3 [facility] Comment on above: Performed By: #### C BC #### [facility] [address] [place] [address] Dr. Jessie Cheney Globulin (S) [Mass/Vol] 3.0 g/dL Normal T [facility] Comment on above: Performed By: #### C BC #### [facility] [address] [place] [address] Dr. Jessie Cheney Protein [Mass/Vol] 6.2 g/dL Normal 6.1-8.2 [facility] Comment on above: Performed By: #### C BC #### [facility] [address] [address] [address] Jessie Cheney PROF CHEM 8 (BAS METB)on Anion gap [Moles/Vol] 17.2 mmol/L Normal [facility] Comment on above: Performed By: #### B MP #### [facility] [address] [address] [address] Jessie Cheney Calcium [Mass/Vol] 9.6 mg/dL Normal 8.4-10.2 [facility] Comment on above: Performed By: #### B MP #### [facility] [address] [address] [address] Jessie Cheney Chloride [Moles/Vol] 101 mmol/L Normal 98-107 [facility] Comment on above: Performed By: #### B MP #### [facility] [address] [place] [address] Dr. Jessie Cheney CO2 [Moles/Vol] 22.7 mmol/L Normal 22.0-30.0 [facility] Comment on above: Performed By: #### B MP #### [facility] [address] [address] [address] Jessie Cheney Creatinine [Mass/Vol] 1.10 mg/dL Critically high 0.52-1.04 [facility] Comment on above: Performed By: #### B MP #### [facility] [address] [address] [address] Jessie Cheney EGFR-AF TAIWANESE 59 mL/min/1.73m2 Critically low >=60 [facility] Comment on above: Performed By: #### B MP #### [facility] [address] [address] [address] Jessie Cheney EGFR-NON AF TAIWANESE 48 mL/min/1.73m2 Critically low >=60 [facility] Comment on above: Performed By: #### B MP #### [facility] [address] [address] [address] Jessie Cheney Glucose [Mass/Vol] 193 mg/dL Critically high 74-106 [facility] Comment on above: Performed By: #### B MP #### [facility] [address] [place] [address] Dr. Jessie Cheney Potassium [Moles/Vol] 3.9 mmol/L Normal 3.4-5.0 [facility] Comment on above: Performed By: #### B MP #### [facility] [address] [address] [address] Jessie Cheney Sodium [Moles/Vol] 137 mmol/L Normal 137-145 [facility] Comment on above: Performed By: #### B MP #### [facility] [address] [address] [address] Jessie Cheney Urea nitrogen [Mass/Vol] 40.0 mg/dL Critically high 7.0-17 .0 [facility] Comment on above: Performed By: #### B MP #### [facility] [address] [place] [address] Dr. Jessie Cheney Urea nitrogen/Creatinine [Mass ratio] 36.4 mg/mg Normal [facility] Comment on above: Performed By: #### B MP #### [facility] [address] [place] [address] Dr. Jessie Cheney PROTIMEon 06-12-2021 INR Coag (PPP) [Relative time] 1.02 {INR} Normal [facility] Comment on above: Performed By: #### C BC #### [facility] [address] [place] [address] Dr. Jessie Cheney INR GUIDELINES SEE BELOW Normal [facility] Comment on above: Result Comment: SRAVANTHI RED INR: 2.0 - 3.0 CONDITIONS NOT LISTED BELOW 2.5 - 3.5 FOR PROSTHETIC HEART VALVE REPLACEMENT 2.5 - 3.5 RECURRENT THROMBOSIS Performed By: #### C BC #### [facility] [address] [place] [address] Dr. Jessie Cheney PT Coag (PPP) [Time] 11.0 s Normal 9.0-11.6 [facility] Comment on above: Performed By: #### C BC #### [facility] [address] [place] [address] Dr. Jessie Cheney PTTon 06-12-2021 aPTT Coag (Bld) [Time] 21.0 s Critically low 22.3-36.2 [facility] Comment on above: Performed By: #### C BC #### [facility] [address] [place] [address] Dr. Jessie Cheney TROPONIN, HIGH SENSITIVITYon 06-12-2021 HSTROP 8.4 pg/mL Normal 4.0-35.5 [facility] Comment on above: Result Comment: CUT- OFF POINTS HAVE BEEN ESTABLISHED BASED ON THE FOURTH UNIVERSAL DEFINITIONS OF MYOCARDIAL INFARCTION. THE UPPER REFERENCE LIMIT (URL) OF TROPONIN, DEFINED THE 99TH PERCENTILE OF cTnI DISTRIBUTION IN A REFERENCE POPULATION, HAS BEEN CONFIRMED THE DECISION THRESHOLD FOR [place] DIAGNOSIS. Performed By: #### B MP #### [facility] [address] [place] [address] Dr. Jessie Cheney TSHon 06-12-2021 TSH 1.183 uIU/mL Normal 0.470-4.[address] [facility] Comment on above: Performed By: #### T SH, FT3 #### [facility] [address] [place] [address] Dr. Jessie Cheney TSH RANGE SEE BELOW Normal [facility] Comment on above: Result Comment: <0.3 4 UIU/ml HYPERTHYROID 0.34-5.60 UIU/ml EUTHYROID >5.60 UIU/ml HYPOTHYROID Performed By: #### T SH, FT3 #### [facility] [address] [place] [address] Dr. Jessie Cheney TYPE AND SCREENon 06-12-2021 TYPE AND SCREEN Negative Normal [facility] Comment on above: Performed By: #### T NS #### [facility] [address] [place] [address] Dr. Jessie Cheney Vital Signs Date Time Vital Sign Value Performing Clinician Facility 06-27-2023 14:00-0500 Body height 154.94 cm Ramin De Paz Other [facility] 06-27-2023 14:00-0500 Body mass index (BMI) [Ratio] 27.02 kg/m2 Ramin De Paz Other [facility] Other 06-27-2023 14:00-0500 Body weight 64.86 kg Ramin Ball Other [facility] 06-27-2023 14:00-0500 Diastolic blood pressure 60 mm[Hg] Ramin Ball Other [facility] 06-27-2023 14:00-0500 Respiratory rate 12 /min Ramin Ball Other [facility] Other 06-27-2023 14:00-0500 Systolic blood pressure 130 mm[Hg] Ramin Ball Other [facility] 03-27-2023 11:30-0400 Body height 154.94 cm Ramin Ball Other [facility] Other 03-27-2023 11:30-0400 Body mass index (BMI) [Ratio] 26.98 kg/m2 Ramin Ball Other [facility] Other 03-27-2023 11:30-0400 Body weight 64.77 kg Ramin Ball Other [facility] Other 03-27-2023 11:30-0400 Diastolic blood pressure 72 mm[Hg] Ramin Ball Other [facility] Other 03-27-2023 11:30-0400 Respiratory rate 12 /min Ramin Ball Other [facility] Other 03-27-2023 11:30-0400 Systolic blood pressure 199 mm[Hg] Ramin Ball Other [facility] Other 02-01-2023 13:07-0400 Diastolic blood pressure 54 mm[Hg] DO Ramin Ball Work Phone: [facility] 02-01-2023 13:07-0400 Heart rate 52 /min DO Ramin Ball Work Phone: [facility] 02-01-2023 13:07-0400 Respiratory rate 16 /min DO Ramin Ball Work Phone: [facility] 02-01-2023 13:07-0400 SaO2% (BldA) [Mass fraction] 97 % DO Ramin Ball Work Phone: [facility] 02-01-2023 13:07-0400 Systolic blood pressure 105 mm[Hg] DO Ramin Ball Work Phone: [facility] 01-30-2023 11:34-0400 Body temperature 97.9 [degF] DO Ramin Ball Work Phone: [facility] 01-13-2023 11:01-0400 Body temperature 97.6 [degF] DO Ramin Ball Work Phone: [facility] 01-13-2023 11:01-0400 Body weight 64.22 kg DO Ramin Ball Work Phone: [facility] 01-13-2023 11:01-0400 Diastolic blood pressure 75 mm[Hg] DO Ramin Ball Work Phone: [facility] 01-13-2023 11:01-0400 Heart rate 58 /min DO Ramin Ball Work Phone: [facility] 01-13-2023 11:01-0400 Respiratory rate 20 /min DO Ramin Ball Work Phone: [facility] 01-13-2023 11:01-0400 SaO2% (BldA) [Mass fraction] 97 % DO Ramin Ball Work Phone: [facility] 01-13-2023 11:01-0400 Systolic blood pressure 183 mm[Hg] DO Ramin Ball Work Phone: [facility] 12-23-2022 11:00-0400 Body height 154.94 cm Ramin Ball Other [facility] Other 12-23-2022 11:00-0400 Body mass index (BMI) [Ratio] 26.98 kg/m2 Ramni Ball Other [facility] Other 12-23-2022 11:00-0400 Body weight 64.77 kg Ramin Ball Other [facility] Other 12-23-2022 11:00-0400 Diastolic blood pressure 83 mm[Hg] Ramin Ball Other [facility] Other 12-23-2022 11:00-0400 Respiratory rate 12 /min Ramin Ball Other [facility] Other 12-23-2022 11:00-0400 Systolic blood pressure 173 mm[Hg] Ramin Ball Other [facility] Other 07-14-2022 09:57-0500 Body height 152.4 cm DO Ramin Ball Work Phone: [facility] 07-14-2022 09:57-0500 Body weight 63.1 kg DO Ramin Ball Work Phone: [facility] 07-14-2022 09:57-0500 Diastolic blood pressure 73 mm[Hg] DO Ramin Ball Work Phone: [facility] 07-14-2022 09:57-0500 Heart rate 61 /min DO Ramin Ball Work Phone: [facility] 07-14-2022 09:57-0500 Respiratory rate 20 /min DO Ramin Ball Work Phone: [facility] 07-14-2022 09:57-0500 SaO2% (BldA) [Mass fraction] 99 % DO Ramin Ball Work Phone: [facility] 07-14-2022 09:57-0500 Systolic blood pressure 173 mm[Hg] DO Ramin Ball Work Phone: [facility] 07-08-2022 14:30-0500 Body height 154.94 cm Ramin Ball Other [facility] Other 07-08-2022 14:30-0500 Body mass index (BMI) [Ratio] 26.75 kg/m2 Ramin Ball Other [facility] Other 07-08-2022 14:30-0500 Body weight 64.23 kg Ramin Ball Other [facility] Other 07-08-2022 14:30-0500 Diastolic blood pressure 62 mm[Hg] Ramin Ball Other [facility] Other 07-08-2022 14:30-0500 Respiratory rate 12 /min Ramin Ball Other [facility] Other 07-08-2022 14:30-0500 Systolic blood pressure 130 mm[Hg] Ramin Ball Other [facility] Other 09-13-2021 14:35-0400 Body temperature 98.1 [degF] DO Ramin Ball Work Phone: [facility] 09-13-2021 14:35-0400 Body weight 66.13 kg DO Ramin Ball Work Phone: [facility] 09-13-2021 14:35-0400 Diastolic blood pressure 56 mm[Hg] DO Ramin Ball Work Phone: [facility] 09-13-2021 14:35-0400 Heart rate 62 /min DO Ramin Ball Work Phone: [facility] 09-13-2021 14:35-0400 Respiratory rate 20 /min DO Ramin Ball Work Phone: [facility] 09-13-2021 14:35-0400 SaO2% (BldA) [Mass fraction] 97 % DO Ramni Ball Work Phone: [facility] 09-13-2021 14:35-0400 Systolic blood pressure 136 mm[Hg] DO Ramin Ball Work Phone: [facility] 06-28-2021 13:01-0500 Body height 152.4 cm DO Ramin Ball Work Phone: [facility] 06-24-2021 10:45-0500 Body height 154.94 cm Estuardo Epps Other [facility] Other 06-24-2021 10:45-0500 Body mass index (BMI) [Ratio] 27.39 kg/m2 Estuardo Epps Other [facility] Other 06-24-2021 10:45-0500 Body weight 65.77 kg Estuardo Epps Other [facility] Other Encounters Encounter Date Encounter Type Care Provider Facility Start: 08-07-2023 End: 08-07-2023 ambulatory Ramin Ball Facility:[facility] Start: 08-07-2023 End: 08-07-2023 ambulatory DO Ramin Ball Work Phone: [facility] Work Phone: Start: 08-07-2023 End: 08-07-2023 Patient encounter procedure DO Ramin Ball Work Phone: [facility]-Pet Scan Work Phone: Start: 08-01-2023 Non-patient / Non-visit DO Ramin Ball Work Phone: [facility] Work Phone: Start: 07-21-2023 End: 07-21-2023 ambulatory Ramin Ball Other [facility] Other Start: 07-21-2023 Telephone encounter Ramin De Paz [facility] Start: 07-20-2023 End: 07-20-2023 ambulatory Ramin De Paz Other [facility] Other Start: 07-20-2023 Telephone encounter Ramin De Paz [facility] Start: 07-19-2023 End: 07-19-2023 ambulatory Ramin De Paz Other [facility] Other Start: 07-19-2023 Telephone encounter Ramin CARTER [facility] Start: 07-13-2023 End: 07-13-2023 ambulatory Ramin De Paz Facility:[facility] Start: 07-13-2023 End: 07-13-2023 ambulatory DO Ramin Ball Work Phone: [facility] Work Phone: Start: 07-13-2023 End: 07-13-2023 Patient encounter procedure DO Ramin Ball Work Phone: [facility] [place] Work Phone: Start: 07-13-2023 Registered Recurring DO Aryan in [place] Work Phone: [facility] Acute Work Phone: Start: 07-11-2023 End: 07-11-2023 ambulatory Ramin De Paz Other [facility] Other Start: 07-11-2023 Telephone encounter Ramin CARTER [facility] Start: 06-27-2023 End: 06-27-2023 ambulatory Ramin De Paz Other [facility] Other Start: 06-27-2023 Office outpatient visit 25 minutes Ramin De Paz [facility] Start: 06-27-2023 End: 06-27-2023 Patient encounter procedure DO Ramin Ball Work Phone: [facility] Work Phone: Start: 06-14-2023 End: 06-14-2023 ambulatory Ramin De Paz Other [facility] Other Start: 06-14-2023 Nursing evaluation o f patient and report Ramin De Paz [facility] Start: 05-05-2023 End: 05-05-2023 ambulatory Ramin De Paz Other [facility] Other Start: 05-05-2023 Nursing evaluation o f patient and report Ramin De Paz [facility] Start: 03-27-2023 End: 03-27-2023 ambulatory Ramin De Paz Other [facility] Other Start: 03-27-2023 Office outpatient visit 25 minutes Ramin De Paz [facility] Start: 02-10-2023 End: 02-10-2023 ambulatory Ramin De Paz Other [facility] Other Start: 02-10-2023 Nursing evaluation o f patient and report Ramin De Paz [facility] Start: 02-08-2023 End: 02-08-2023 ambulatory Ramin De Paz Other [facility] Other Start: 02-08-2023 Telephone encounter Ramin De Paz [facility] Start: 01-13-2023 End: 01-13-2023 ambulatory DO Ramin De Paz Work Phone: [facility] Work Phone: Start: 01-13-2023 End: 01-13-2023 Registered Recurring DO Ramin De Paz Work Phone: [facility] Work Phone: Start: 01-05-2023 End: 01-05-2023 ambulatory Ramin De Paz Other [facility] Other Start: 01-05-2023 Telephone encounter Ramin De Paz [facility] Start: 12-23-2022 End: 12-23-2022 ambulatory Ramin De Paz Other [facility] Other Start: 12-23-2022 Patient encounter procedure Ramin De Paz [facility] Start: 12-19-2022 End: 12-19-2022 ambulatory Ramin De Paz Other [facility] Other Start: 12-19-2022 Telephone encounter Ramin De Paz [facility] Start: 11-23-2022 End: 11-23-2022 ambulatory Ramin De Paz Other [facility] Other Start: 11-23-2022 Nursing evaluation o f patient and report Ramin De Paz [facility] Start: 11-21-2022 End: 11-21-2022 ambulatory Ramin De Paz Other [facility] Other Start: 11-21-2022 Telephone encounter Ramin CARTER [facility] Start: 08-12-2022 End: 08-12-2022 ambulatory Ramin De Paz Other [facility] Other Start: 08-12-2022 Nursing evaluation o f patient and report Ramin De Paz [facility] Start: 07-14-2022 End: 07-14-2022 ambulatory DO Ramin De Paz Work Phone: [facility] Work Phone: Start: 07-14-2022 End: 07-14-2022 Registered Recurring DO Ramin De Paz Work Phone: [facility] Work Phone: Start: 07-11-2022 End: 07-11-2022 ambulatory DO Ramin De Paz Work Phone: [facility] Work Phone: Start: 07-11-2022 End: 07-11-2022 Patient encounter procedure DO Ramin De Paz Work Phone: [facility] [place] Work Phone: Start: 07-11-2022 Registered Recurring DO Aryan in [place] [facility] Start: 07-08-2022 End: 07-08-2022 ambulatory Ramin De Paz Other [facility] Other Start: 07-08-2022 Office outpatient visit 25 minutes [facility] Start: 05-31-2022 End: 05-31-[address] RAMIN DE PAZ Facility:[facility] Start: 05-30-2022 End: 05-31-[address] RAMIN DE PAZ Facility:[facility] Start: 03-15-2022 End: 03-16-[address] RAMIN DE PAZ Facility:[facility] Start: 01-10-2022 End: 01-10-2022 Registered Recurring DO Ramin De Paz [facility] Start: 01-07-2022 End: 01-07-[address] RAMIN DE PAZ Facility:[facility] Start: 12-22-2021 Adult health examination Ramin De Paz Other [facility] Other Start: 08-18-2021 End: 08-19-[address] RAMIN DE PAZ Facility:[facility] Start: 08-17-2021 End: 08-17-[address] RAMIN DE PAZ Facility:[facility] Start: 07-26-2021 End: 07-27-[address] RAMIN DE PAZ Facility:[facility] Start: 07-09-2021 End: 07-16-[address] RAMIN DE PAZ Facility:[facility] Start: 06-24-2021 End: 06-24-2021 ambulatory Estuardo Epps Other [facility] Other Start: 06-24-2021 Office outpatient visit 25 minutes Estuardo Epps [facility] Gastro[facility]ology Start: 06-21-2021 End: 06-22-[address] RAMIN DE PAZ Facility:[facility] Start: 06-21-2021 End: 06-21-2021 Pre-procedure evaluation check Ramin De Paz Other [facility] Other Start: 06-17-2021 End: 06-17-[address] RAMIN DE PAZ Facility:[facility] Start: 06-12-2021 End: 06-16-[address] RAMIN DE PAZ Facility:[facility] Start: 05-04-2021 Chart abstracting Chip lackey MD Work Phone: Hematology/Oncology Start: 09-19-2016 End: 09-20-2016 Patient encounter procedure JOSH GALLEGO Facility:[facility] Procedures Date Procedure Procedure Detail Performing Clinician [...] Activity Detail Author Start: 01-31-2023 End: 02-01-2023 [facility] Start: 01-30-2023 [facility] Start: 01-27-2023 End: 01-27-2023 [facility] Start: 01-24-2023 [facility] Start: 02-17-2021 Influenza vaccination INFLUENZA (#1) [facility] Start: 2010 ADVANCE DIRECTIVE DISCUSSION ADVANCE DIRECTIVE DISCUSSION [facility] Start: 2010 BONE DENSITY BONE DENSITY [facility] Start: 2010 PNEUMOVAX AGE 65 AND OVER WITH 5YR LOOKBACK (#1) PNEUMOVAX AGE 65 AND OVER WITH 5YR LOOKBACK (#1) [facility] Start: 11-13-1995 SHINGRIX VACCINE (1 of 2) SHINGRIX VACCINE (1 of 2) [facility] Start: 1990 COLOGUARD (FIT-DNA) COLOGUARD (FIT-DNA) [facility] Start: 1990 Colonoscopy COLONOSCOPY [facility] Start: 1990 COLORECTAL CANCER SCREENING COLORECTAL CANCER SCREENING [facility] Start: [address] COLONOGRAPHY [facility] Start: 1990 DIABETES SCREEN DIABETES SCREEN [facility] Start: 1990 FECAL OCCULT BLOOD FECAL OCCULT BLOOD [facility] Start: 1990 LIPID SCREEN LIPID SCREEN [facility] Start: 1990 SIGMOIDOSCOPY SIGMOIDOSCOPY [facility] Start: 1964 Urine microalbumin profile DTAP,TDAP,TD (1 - Tdap) [facility] Start: 11-13-1963 HEPATITIS C SCREENING HEPATITIS C SCREENING [facility] Start: 1957 Adult depression screening assessment DEPRESSION SCREENING [facility] Start: 1957 COVID-19 VACCINE (1) [facility] Comprehensive metabo lic 1999 panel - Serum or Plasma [facility] Work Phone: Comprehensive metabo lic 1999 panel - Serum or Plasma [facility] Comprehensive metabo lic 1999 panel - Serum or Plasma [facility] Comprehensive metabo lic 1999 panel - Serum or Plasma [facility] Ferritin [Mass/volum e] in Serum or Plasma [facility] Work Phone: Ferritin [Mass/volum e] in Serum or Plasma [facility] Ferritin [Mass/volum e] in Serum or Plasma [facility] Immunizations Immunization Date Immunization Notes Care Provider Fa [facility] 04-01-2022 influenza virus vaccine, split virus (incl. purified surface antigen) Ramin De Paz Other [facility] Other 04-01-2022 influenza virus vaccine, unspecified formulation DO Ramin De Paz Work Phone: [facility] 04-01-2022 influenza, high dose seasonal, preservative-free Ramin De Paz Other [facility] Other 04-21-2021 influenza virus vaccine, split virus (incl. purified surface antigen) Ramin De Paz Other [facility] Other 04-21-2021 influenza virus vaccine, unspecified formulation DO Ramin De Paz Work Phone: [facility] 04-15-2020 influenza virus vaccine, split virus (incl. purified surface antigen) Ramin De Paz Other [facility] Other 04-15-2020 influenza virus vaccine, unspecified formulation DO Ramin De Paz Work Phone: [facility] 04-02-2019 influenza virus vaccine, split virus (incl. purified surface antigen) Ramin De Paz Other [facility] Other 04-02-2019 influenza virus vaccine, unspecified formulation DO Ramin Altheos Work Phone: [facility] 05-02-2018 influenza virus vaccine, split virus (incl. purified surface antigen) Ramin De Paz Other [facility] Other 05-02-2018 influenza virus vaccine, unspecified formulation DO [employer] Work Phone: [facility] 04-23-2018 influenza virus vaccine, split virus (incl. purified surface antigen) Ramin De Paz Other [facility] Other 04-23-2018 influenza virus vaccine, unspecified formulation DO Ramin Altheos Work Phone: [facility] 01-31-2018 pneumococcal polysaccharide vaccine, 23 valent Ramin De Paz Other [facility] 03-21-2016 influenza virus vaccine, split virus (incl. purified surface antigen) Ramin De Paz Other [facility] Other 03-21-2016 influenza virus vaccine, unspecified formulation DO Ramin Altheos Work Phone: [facility] 03-27-2015 pneumococcal conjuga te vaccine, 13 valent Ramin De Paz Other [facility] 03-20-2013 tetanus and diphther ia toxoids, adsorbed, preservative free, for adult use (5 Lf of tetanus toxoid and 2 Lf of diphtheria toxoid) Ramin De Paz Other [facility] Payers Date Payer Category Payer Self-pay [id number] 2019 Medicare HUMANA MEDICARE HUMANA MEDICARE PPO [id number] 2019-Present [phone] [address] [address] [place] [address] PPO [id number] 1959 Unknown [id number] 1945 Unknown [id number] 1945 Unknown [id number] [id number] 1945 Unknown [id number] [id number]3 1945 Unknown [id number] 2.16.840.1.959977.3.579.2.593 1945 Unknown [id number] 2.16.840.1.173653.3.579.2.593 1945 Unknown [id number] 2.16.840.1.017889.3.579.2.593 1945 Unknown [id number] 2.16.840.1.112949.3.579.2.593 1945 Unknown [id number] 2.16.840.1.216561.3.579.2.593 1945 Unknown [id number] 2.16.840.1.683439.3.579.2.593 1945 Unknown [id number] 2.16.840.1.448053.3.579.2.593 1945 Unknown [id number] 2.16.840.1.215744.3.579.2.593 1945 Unknown [id number] 2.16.840.1.756100.3.579.2.593 Medicare [id number] [id number] Unknown [id number] 2.16.840.1.951965.3.579.2.531 Unknown [id number] 2.16.840.1.579446.3.579.2.531 Unknown [id number] [id number] Social History Date Type Detail Facility Start: 05-04-2021 End: 06-27-2023 Tobacco smoking status NHIS Ex-smoker [facility] Start: 1945 Sex Assigned At Not on file [facility] Sex Assigned At Sex Assigned At [facility] Other Start: 1945 Sex Assigned At Female F [facility] Medical Equipment Procedure Code Equipment Code Equipment Origin al Text Equipment Identifier Dates Capsule endoscopy, for patency of lumen evaluation Video capsule endoscopy system [id number] FDA Start: 06-30-2021 Goals Date Patient Goal Desired Activity /State Clinical Notes 06-24-2021 to 07-21-2023 Note Date & Type Note Facility 07-21-2023 Evaluation note Encounter Date Diagnosis Assessment Notes Jul, Type 2 diabetes mellitus with hyperglycemia , without long-term current use of insulin (ICD-10 - E11.65) [facility] Other 01-31-2024 Evaluation note* Encounter Date Diagnosis Assessment Notes Treatment Notes Treatment Clinical Notes Jun, Type 2 diabetes mellitus with hyperglycemia, without long-term current use of insulin (ICD-10 - E11.65) [facility] Other 01-09-2024 Evaluation note* Encounter Date Diagnosis [...] anemia (ICD-10 - D51.0) Continue B12 supplementation [facility] Other 12-27-2023 Evaluation note* Encounter Date Diagnosis Assessment Notes Treatment Notes Treatment Clinical Notes May, Pernicious anemia (ICD-10 - D51.0) [facility] Other 11-17-2023 Evaluation note* Encounter Date Diagnosis Assessment Notes Treatment Notes Treatment Clinical Notes Apr, Pernicious anemia (ICD-10 - D51.0) [facility] Other 10-09-2023 Evaluation note* Encounter Date Diagnosis [...] (ICD-10 - D51.0) Continue B12 injections monthly [facility] Other 08-25-2023 Evaluation note* Encounter Date Diagnosis Assessment Notes Treatment Notes Treatment Clinical Notes Jan, Pernicious anemia (ICD-10 - D51.0) [facility] Other 07-20-2023 Evaluation note* Encounter Date Diagnosis Assessment Notes Treatment Notes Treatment Clinical Notes Dec, Stage 4 chronic kidney disease (ICD-10 - N18.4) [facility] Other 07-20-2023 Evaluation note* Encounter Date Diagnosis Assessment Notes Treatment Notes Treatment Clinical Notes Dec, Primary hypertension (ICD-10 - I10) Dec, Stage 4 chronic kidney disease (ICD-10 - N18.4) [facility] Other 07-07-2023 Evaluation note* Encounter Date Diagnosis [...] prevent callus formation.Fall precautions. Dec, Atherosclerosis of [place] artery of left lower extremity with intermittent [...] - E55.9) Dec, Other s/p partial thyroidectomy [facility] Other 07-03-2023 Evaluation note* Encounter Date Diagnosis Assessment Notes Treatment Notes Treatment Clinical Notes Dec, Atherosclerosis of [place] artery of left lower extremity with intermittent claudication (ICD-10 - I70.212) [facility] Other 06-07-2023 Evaluation note* Encounter Date Diagnosis Assessment Notes Treatment Notes Treatment Clinical Notes Nov, Pernicious anemia (ICD-10 - D51.0) [facility] Other 02-24-2023 Evaluation note* Encounter Date Diagnosis Assessment Notes Treatment Notes Treatment Clinical Notes Jul, Pernicious anemia (ICD-10 - D51.0) [facility] Other 01-31-2023 Progress note Author Tatiana Pricechantami [facility] July 19, 2022 9:00am Note Date/Time July 14, 2022 1 0:22am [facility] [place] [id number] Hem/Onc Follow Up Note - OP Signed Patient: Maame Velasco MR#: [id number] : 1945 Acct:[id number] Age/Sex: 76 / F Type: REG RCR Copies to: DO Leo Calderon MD~ Subjective Date/Time of Service: Date of Service: 07/14/2022 Time of Service: 10:20 Chief Complaint: Patient is here for a 6 month follow up with labs for review. No concerns voiced at this time. HPI: 75-year-old female with a history of anemia previously followed by [facility]. She presented to the emergency room on [...] with Dr. Epps. 07/12/20 She was at [facility] and got venofer. She got premedication with a steroid because she had a slight reaction to her venofer in the hospital. She did fine when she got the iron with the premedications. She had her iron at [place] and then came here to get labs from [facility] on the same day. her hb 12.8. [...] % (Auto) 60.5, Lymph % (Auto) 27.7, Gilliam % (Auto) 8.0, Eos % (Auto) 3.1, Baso % (Auto) 0.7, Nucleat RBC Rel Count 0.1, Neut # (Auto) 5.8, Lymph # (Auto) 2.6, Gilliam # (Auto) 0.8, Eos # (Auto) 0.3, [...] for coordination of care (as documented) and [id number] counseling of patient and/or family. Dictated By: Tatiana Christianson APRN DD/ 1020 Signed By: <Electronically signed by MARY ALICE Christianson> 07/19/22 0900 [facility] Work Phone: 1(919) 240-714901-20-2023 Evaluation note* Encounter Date Diagnosis Assessment Notes [...] and feet daily for blisters and ulcerations. [facility] Other 03-28-2022 Progress note Author Jarrett Loyola [facility] September 13, 2021 2:57pm Note Date/Time September 13, 2021 2:5 3pm [facility] [place] [address] Hem/Onc Follow Up Note - OP Signed Patient: Maame Velasco MR#: [id number] : 1945 Acct:[id number] Age/Sex: 75 / F Type: REG RCR Copies to: DO Leo Calderon MD~ Date of Service: 09/13/2021 Time [...] a history of anemia previously followed by [facility]. She presented to the emergency room on 2020 with melena weakness and fatigue. Preceding this she had about7 weeks of melena and had required a few units of blood as an outpatient. She had been referred to Dr. Epps. She had had an EGD and colonoscopy by Dr. Barber 06/08/2021 and a small bleeding vessel was [...] with Dr. Epps. 07/12/20 She was at [facility] and got venofer. She got premedication with a steroid because she had a slight reaction to her venofer in the hospital. She did fine when she got the iron with the premedications. She had her iron at [place] and then came here to get labs from [facility] on the same day. her hb 12.8. [...] for coordination of care (as documented) and aizu-om-obdn counseling of patient and/or family. [facility] - Medical History Medical History: Medical History [...] % (Auto) 56.4, Lymph % (Auto) 30.4, Gilliam % (Auto) 9.4, Eos % (Auto) 3.2, Baso % (Auto) 0.6, Neut # (Auto) 4.9, Lymph # (Auto) 2.6, Gilliam # (Auto) 0.8, Eos # (Auto) 0.3, [...] DAILY 08/09/21 [History Confirmed 09/13/21] Dictated By: Jarrett Loyola II, DO DD/ 51 Signed By: <Electronically signed by Jarrett Loyola II, DO> 09/13/21 1457 [facility] Work Phone: 1(528) 265-870402-21-2022 Progress note Author Cora Gaming [facility] August 09, 2021 3:16pm Note Date/Time August 09, 2021 2:57pm [facility] [place] [id number] Hem/Onc Follow Up Note - OP Signed Patient: Maame Velasco MR#: [id number] : 1945 Acct:[id number] Age/Sex: 75 / F Type: REG RCR Copies to: DO Leo Calderon MD Timothy Alvarez Loyola, II, DO~ Date of Service: 08/09/2021 Time [...] patient states that she got iron at [place] 3 weeks ago. HPI: 75-year-old female with a history of anemia previously followed by [facility]. She presented to the emergency room on [...] with Dr. Epps. 07/12/20 She was at [facility] and got venofer. She got premedication with a steroid because she had a slight reaction to her venofer in the hospital. She did fine when she got the iron with the premedications. She had her iron at [place] and then came here to get labs from [facility] on the same day. her hb 12.8. [...] for coordination of care (as documented) and hojv-zg-msvh counseling of patient and/or family. [facility] - Medical History Medical History: Medical History [...] <Electronically signed by MARY ALICE Gaming> 08/09/21 9573 [facility] Work Phone: 1(129) 996-864801-24-2022 Progress note Author Jarrett Loyola [facility] July 12, 2021 1:33pm Note Date/Time July 12, 2021 1 :24pm [facility] [place] [address] Hem/Onc Follow Up Note - OP Signed Patient: Maame Velasco MR#: [id number] : 1945 Acct:[id number] Age/Sex: 75 / F Type: REG RCR Copies to: DO Leo Calderon MD~ Date of Service: 07/12/2021 Time [...] more dose iv iron already scheduled at [place]. . check cbc, cmp, iron, ferritin, iron saturation prior to f/u. - History of Present Illness Chief Complaint: Patient is here for a 2 week follow up. She got iron last Monday at [place]. She states she will get another dose this coming Monday. HPI: 75-year-old female with a history of anemia previously followed by [facility]. She presented to the emergency room on [...] with Dr. Epps. 07/12/20 She was at [facility] and got venofer. She got premedication with a steroid because she had a slight reaction to her venofer in the hospital. She did fine when she got the iron with the premedications. She had her iron at [place] and then came here to get labs from [facility] on the same day. her hb 12.8. [...] for coordination of care (as documented) and opxz-cm-zvvz counseling of patient and/or family. [facility] - Medical History Medical History: Medical History [...] % (Auto) 85.3, Lymph % (Auto) 12.3, Gilliam % (Auto) 1.7, Eos % (Auto) 0.3, Baso % (Auto) 0.4, Neut # (Auto) 7.0, Lymph # (Auto) 1.0, Gilliam # (Auto) 0.1, Eos # (Auto) 0.0, [...] BID 06/08/21 [History Confirmed 07/12/21] Dictated By: Jarrett Loyola II, DO DD/ 1321 Signed By: <Electronically signed by Jarrett Loyola II, DO> 07/12/21 1333 [facility] Work Phone: [phone]) 895-607201-10-2022 Progress note Author Jarrett Loyola [facility] June 28, 2021 3:36pm Note Date/Time June 28, 2021 1 :28pm [facility] at [address] [address] Hem/Onc Follow Up Note - OP Signed Patient: Maame Velasco MR#: [id number] : 1945 Acct:[id number] Age/Sex: 75 / F Type: REG RCR Copies to: Ramin De Paz,DO Leo Allison MD~ Date of Service: 06/28/2021 Time [...] anemia. She was last seen at [facility] 06/15/21 while inpatient. Patient has questions about resuming Plavix and Aspirin. No other concerns voiced at this time. HPI: 75-year-old female with a history of anemia previously followed by [facility]. She presented to the emergency room on [...] for coordination of care (as documented) and udif-sa-eabi counseling of patient and/or family. 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) [place] [facility] Other Evaluation note* Diagnosis Onset Date Resolution Status Iron deficiency anemia acute [facility] Work Phone: Evaluation [facility]No [facility] Other Evaluation note* Diagnosis Onset Date Resolution Status CKD (chronic kidney disease) stage 3, GFR 30-59 ml/min acute Hypercalcemia acute Hypertension acute Iron deficiency anemia acute [facility] Work Phone: Hiszefv general Narrative - Reported* Type Description Date Medical History DM II Medical History hyperlipidemia Medical History HTN Medical History GERD Medical History mini stroke [facility] Other Hisdpcm general Narrative - Reported* Type Description Date [...] BX 07/2006 Hospitalization History SEE SURGICAL HX [facility] Other Hisxnqh general Narrative - Reported* Type Description Date [...] BX 07/2006 Hospitalization History SEE SURGICAL HX [facility] Other Progress note Author Jarrett Loyola [facility] January 13, 2023 11:29am Note Date/Time January 13, 2023 11:2 2am [facility] [place] [address] Hem/Onc Follow Up Note - OP Signed Patient: Maame Velasco MR#: [id number] : 1945 Acct:[id number] Age/Sex: 77 / F Type: REG RCR Copies to: DO Leo Calderon MD~ Date of Service: 01/13/2023 Time [...] a history of anemia previously followed by [facility]. She presented to the emergency room on [...] with Dr. Epps. 07/12/20 She was at [facility] and got venofer. She got premedication with a steroid because she had a slight reaction to her venofer in the hospital. She did fine when she got the iron with the premedications. She had her iron at [place] and then came here to get labs from [facility] on the same day. her hb 12.8. [...] he now follows with Dr. Grace at [facility]. - Physical Exam ECOG PS: 0 General [...] for coordination of care (as documented) and iotj-ao-sblt counseling of patient and/or family. [facility] - Medical History Medical History: Medical History [...] 3.8, Globulin (PEP) 3.1, Albumin/Globulin (PEP) 1.2, Egjsf-0-Vcuwtrhnn 0.3, Npqof-5-Ctzqylrse 1.1 H,Beta Globulins 0.9, Gamma Globulins 0.9, M-Gabriel Comment:, PEP Note , IgG 826, IgA 60 L, IgM 61, Serum Immunofixation Comment:, Free [place] LC, Quant 42.6 H, Free Lambda LC, Quant 19.4, Free [place]/Lambda Ratio 2.20 H 01/10/23 11:52: PHA Creatinine [...] % (Auto) 62.3, Lymph % (Auto) 25.3, Gilliam % (Auto) 8.6, Eos % (Auto) 3.1, Baso % (Auto) 0.7, Nucleat RBC Rel Count 0.1, Neut # (Auto) 5.3, Lymph # (Auto) 2.2, Gilliam # (Auto) 0.7, Eos # (Auto) 0.3, [...] DAILY 07/14/22 [History Confirmed 01/13/23] Dictated By: Jarrett Loyola II, DO DD/ 1120 Signed By: <Electronically signed by Jarrett Loyola II, DO> 01/13/23 1129 [facility] Work Phone: Summary Purpose Family History No Family History Records Found Relationship Condition Age at Onset Recorded Date/T jesus alberto father Malignant neoplasm of urinary bladder Unk nown Not Specified Diabetes mellitus Unknown Relationship Condition Age at Onset Recorded Date/T jesus alberto father Malignant neoplasm of urinary bladder Unk nown Not Specified Diabetes mellitus Unknown father Unknown Malignant neoplasm Unknown Not Specified Unknown Heart disease Unknown Diabetes mellitus Unknown Advance Directives No Advanced Directives Records Found Advance Directive Response Recorded Date/ Time Advance [...] Iron deficiency anemia w/ GI blood loss E11.65 r91.8 Reason for Visit CKD (chronic kidney disease) stage 3, GFR 30-59 ml/min Hypercalcemia Hypertension Iron deficiency anemia Additional Source Comments INFORMATION SOURCE (unrecogn ized section and content) DATE CREATED AUTHOR 10/05/2018 [facility] DATE CREATED AUTHOR AUTHOR'S ORGANIZ ATION 06/10/2022 [facility] DATE CREATED AUTHOR AUTHOR'S ORGANIZ ATION 08/07/2023 [facility] Source Comments (unrecognize d section and content) In the event this informatio n is protected by the Federal Confidentiality of Alcohol and Drug Abuse Patient Records regulations: The Federal rules restrict any use of the information to criminally investigate or prosecute any alcohol or drug abuse patient.[facility] Care Teams (unrecognized sec tion and content) Team Status: Active Member Role Status Dates aRmin De Paz DO Primary Care Provider Active Team Status: Inactive Member Role Status Dates Ramin De Paz DO Attending Provider Active Sta rt: June 27, 2023 End: June 27, 2023 Team Status: Active Member Role Status Dates Ramin De Paz DO Primary Care Provider Active Start: July 13, 2023 Jarrett Loyola II, DO Attending Provider Active Start: July 13, 2023 Leo Allison MD Referring Provider Active Star t: July 13, 2023 Cora Gaming APRN Active Start: July 13, 2023 Team Status: Inactive Member Role Status Dates Ramin De Paz DO Primary Care Provide r, Attending Provider Active Start: July 13, 2023 End: July 13, 2023 Team Status: Active Member Role Status Dates Ramin De Paz DO Primary Care Provider Active Jarrett Loyola II, DO Attending Provider Active Leo Allison MD Referring Provider Active Cora Gaming APRN Active Board Winder Relationship Specialty Start Date End Date Ramin De Paz DO [address] [place] [address] PCP - General Internal Medicine 05/03/21 Team Status: Active Member Role Status Dates Ramin De Paz DO Primary Care Provider Active Jarrett Loyola II, DO Active Leo Allison MD Referring Provider Active Cora Gaming APRN Attending Provider [employer]oct[employer]iano ve Team Status: Inactive Member Role Status Dates Ramin De Paz , DO Primary Care Provider, Attending Jessa negron Active Team Status: Active Member Role Status Dates Ramin De Paz , DO Primary Care Provide r, Attending Provider Active Start: August 01, 2023 Team Status: Inactive Member Role Status Dates Ramin De Paz , DO Primary Care Provide r, Attending Provider Active Start: August 07, 2023 End: August 07, 2023 REASON FOR VISIT (unrecogniz ed section and content) PATIENT HERE FOR FOLLOW UP E GD & COLONOSCOPY3 MONTH FOLLOW [id number] InformationB- 12 ShotNo InformationNo InformationWellnessNo InformationNo InformationNo InformationB-12 Shot3 month Follow [id number] Shot3 month Follow upNo InformationNo PocnpmlxioxZ5H paaxickD7G results Goals (unrecognized section and content) Goals [...] BE BASED ON THE PRIMARY CLINICAL RECORDS. [employer] provides no warranty or guarantee of the accuracy or completeness of information in this document.
[2023-08-09 11:15] LABS: Glucometer 167 mg/dL (74-106)
[2023-08-09] MEDS: LACTATED RINGER'S SOLUTION 1,000 ML 50 ML IV (11:26)
[2023-08-09] MEDS: LIDOCAINE HCL 1% 100 MG/10 ML MDV 5 ML INJ (12:24)
[2023-08-09] MEDS: EPINEPHrine 1 MG/10 ML SYRINGE INJ (12:32)
--- NOTE | 2023-08-09 12:58 | XR_ITS ---
The [address] [address] Patient Name: DINO VELASCO MRN: [id number] date: 1945 Sex: F Assigned Patient Location: [facility] Current Patient Location: [facility] Accession/Order Number: [id number] Exam Date: 08/09/2023 13:10 Report Date: 08/09/2023 13:29 At the request of: GISELLE HUGGINS Procedure: XR chest 1V EXAM: XR chest 1V at 1242 hours HISTORY: s/p broncohscopy with hemoptysis COMPARISON: 07/25/2023 TECHNIQUE: AP upright portable chest x-ray FINDINGS: The nodular opacity in the left suprahilar region persists and is essentially unchanged. No acute infiltrate, effusion or pneumothorax is identified. The heart is not enlarged and the vasculature is not distended. The osseous structures are grossly intact. XR/XR chest 1V IMPRESSION: No acute infiltrate or evidence of cardiac decompensation. There is no evidence of a pneumothorax. The nodular opacity in the left suprahilar region remains unchanged and suspicious for malignancy. The overall appearance of the chest has not changed significantly. Electronically authenticated by: JACOB GIRON Date: 08/09/2023 13:29
--- NOTE | 2023-08-09 13:01 | P.ON_ITS ---
Date of procedure: 08/09/23 Procedure: Procedure Diagnostic fiberoptic bronchoscopy with bronchoalveolar lavage & transbronchial biopsy under fluoroscopic guidance Indication 2.9cm left lower lobe (LLL) mass Findings 1. No endobronchial lesions 2. Final diagnosis pending cytology Specimens LLL bronchoalveolar lavages - pre- and post- epinephrine Description Informed consent was obtained after risks, benefits, and alternatives were discussed with the patient.? Time out was initiated to confirm the correct patient, site, and procedure with all present voicing in the affirmative. Patient was brought to the operating room suite where noninvasive monitoring was utilized.? Sedation & anesthesia were administered by the anesthesia department- please refer to their records for further information.? Tape was placed over the patient's eyes to prevent spillage of secretions.? An 8.5 endotracheal tube was placed by anesthesia.? Due to the placement of the endobronchial tube, the larynx and proximal 2/3 of the trachea were unable to be visualized. The bronchoscope reached the distal trachea where l 5mL of 1% lidocaine were instilled topically to the main jason.? The main jason was sharp without splaying or evidence of underlying mass. The bronchoscope was then advanced through the right main bronchus to the right upper lobe, where the apical, posterior, and anterior segments were visualized.? The bronchoscope was advanced through the bronchus intermedius to the right middle lobe or the medial and lateral segments visualized.? The bronchoscope was then advanced to the right lower lobe superior, medial, anterior, lateral, and posterior basilar segments.? No endobronchial lesions, exudate, or other abnormalities were noted. The bronchoscope was retracted to the main jason and advanced through the left main bronchus to the left upper lobe where the upper division apicoposterior and anterior, as well as lingular superior and inferior segments were visualized.? The bronchoscope was then advanced into the left lower lobe where the superior, anteromedial, lateral, and posterior basilar segments visualized.? No endobronchial lesions, exudate, or other abnormalities were noted. Next, a bronchoalveolar lavage was performed in the left lower lobe. Next, a transbronchial biopsy was attempted under fluoroscopic guidance. The mass was faintly visible on the fluoroscopy screen. I was able to introduce the biopsy catheter easily into a bronchus which lead to the vicinity of the mass. A biopsy was attempted, but no tissue was obtained during this pass. Immediately, the patient began bleeding from the subsegment. Suction was applied, but the bleeding continued despite this. After 4 minutes, she continued to ooze from the subsegment; we re-verified that she was off Plavix and ASA 7 days prior to this procedure. 1mg of topical epinephrine was then administered into the subsegment. The bleeding subsided. Discussed case with anesthesiologist Dr. Remi Perez. The mass appeared vasculari zed on the chest CT. If the patient bleed like this from simply passing by the mass, not even with a biopsy, I was concerned for a critical bleeding event if I attempted further biopsies. There is no thoracic surgery or interventional radiology back-up available at [facility]. Decision was made to abort any further transbronchial biopsy attempts. In lieu of the transbronchial biopsies,I obtained a second bronchoalveolar lavage from the left lower lobe superior segment in the hopes that cells from the mass may have sloughed off. She tolerated this well without any further bleeding. The bronchoscope was withdrawn.? She was extubated and sent to PACU for recovery. A portable CXR was ordered to evaluate for any pneumothorax (results are pending at the time of this documentation). Family was updated on the above events and findings. Anesthesia: GETA and Local (Lidocaine 1% 5mL topically) Surgeon: Ti Richardson Estimated blood loss (mL): 10 Condition: stable Disposition: same day
== END 2023-08-09 14:05 | disposition home or self-care (01) ==
PROVIDERS: PCP Internal Medicine; Visit Provider Internal Medicine
PROC: (CPT 31624; principal; 2023-08-09 12:00)
DX: R91.8 Other nonspecific abnormal finding of lung field (principal); Z87.891 Personal history of nicotine dependence; Z79.02 Long term (current) use of antithrombotics/antiplatelets; Z79.82 Long term (current) use of aspirin; E27.8 Other specified disorders of adrenal gland; K76.9 Liver disease, unspecified; E83.52 Hypercalcemia; R74.8 Abnormal levels of other serum enzymes; Z86.73 Personal history of transient ischemic attack (TIA), and cerebral infarction without residual deficits
CPT/HCPCS: 31624; 36415; 71045; 76000; 82948; 88112; 88305; J0171; J1100; J2250; J2704; J3010

== ENCOUNTER 2023-08-29 07:28 | Outpatient (RCR) | payer MEDICARE, SELFPAY | END 2023-09-17 23:59 | disposition home or self-care (01) | LOC: INF 07:28 | PROVIDERS: PCP Internal Medicine; Visit Provider Internal Medicine Hematology & Oncology | DX: R91.8 Other nonspecific abnormal finding of lung field (principal); E11.9 Type 2 diabetes mellitus without complications; I10 Essential (primary) hypertension; M81.0 Age-related osteoporosis without current pathological fracture; Z86.73 Personal history of transient ischemic attack (TIA), and cerebral infarction without residual deficits; Z87.891 Personal history of nicotine dependence; R56.9 Unspecified convulsions; Z79.84 Long term (current) use of oral hypoglycemic drugs | CPT/HCPCS: G0463 ==

== ENCOUNTER 2024-01-09 09:45 | Outpatient (OUT) | payer MEDICARE, SELFPAY ==
[2024-01-09 10:34] LABS: Estimated Average Glucose 154 mg/dL
[2024-01-09 10:36] LABS: Basophils Absolute Auto 0.1 10^3/uL (0.0-0.1); Basophils Percent Auto 0.7 % (0.2-2.0); Eosinophils Absolute Auto 0.3 10^3/uL (0.0-0.7); Eosinophils Percent Auto 3.1 % (0.9-7.0); Hematocrit 37.2 % (36.0-48.0); Hemoglobin 11.9 g/dL (12.0-16.0); Immature Granulocytes Abs Auto 0.05 10^3/uL (0.00-0.03); Immature Granulocytes Pct Auto 0.5 % (0.0-0.5); Lymphocytes Absolute Auto 2.4 10^3/uL (1.2-3.8); Lymphocytes Percent Auto 26.6 % (20.5-60.0); Mean Corpuscular Hemoglobin 28.3 pg (26.7-34.0); Mean Corpuscular Volume 88.4 fL (81.0-99.0); Mean Platelet Volume 10.9 fL (9.5-13.5); Monocytes Absolute Auto 0.8 10^3/uL (0.3-0.8); Monocytes Percent Auto 8.9 % (1.7-12.0); Neutrophils Absolute Auto 5.5 10^3/uL (1.4-6.5); Neutrophils Percent Auto 60.2 % (43.0-75.0); Platelet Count 283 10^3/uL (150-450); Red Blood Count 4.21 10^6/uL (4.20-5.40); White Blood Count 9.1 10^3/uL (4.0-11.0)
[2024-01-09 10:48] LABS: Microalbumin Urine Random 2.6 mg/dL (<=30.0)
[2024-01-09 10:51] LABS: Cholesterol 111 mg/dL (<=200); HDL Cholesterol 56 mg/dL (40-60); LDL Cholesterol Calculated 33.6 mg/dL; Triglycerides 107 mg/dL (<=150); VLDL CHOLESTEROL 21.4 mg/dL
[2024-01-10 12:10] LABS: PTH, Intact 37 pg/mL (15-65)
[2024-01-11 15:20] LABS: Alanine Aminotransferase 25 U/L (14-59); Albumin Level 3.8 g/dL (3.4-5.0); Alkaline Phosphatase 116 U/L (46-116); Anion Gap 15.6; Aspartate Amino Transferase 23 U/L (15-37); BUN Creatinine Ratio 17.6; Bilirubin Total 0.4 mg/dL (0.2-1.0); Carbon Dioxide 26.9 mmol/L (21.0-32.0); Chloride 101 mmol/L (98-107); Estimated GFR (African America 59 (>=60); Estimated GFR (Non-African Ame 49 (>=60); Globulin 3.8 g/dL; Glucose 188 mg/dL (74-106); Potassium 5.5 mmol/L (3.5-5.1); Sodium 138 mmol/L (136-145); Total Protein 7.6 g/dL (6.4-8.2)
== END 2024-01-09 09:46 | disposition home or self-care (01) ==
LOC: LAB 09:47
PROVIDERS: PCP Internal Medicine; Visit Provider Internal Medicine
DX: I12.9 Hypertensive chronic kidney disease with stage 1 through stage 4 chronic kidney disease, or unspecified chronic kidney disease (principal); E11.65 Type 2 diabetes mellitus with hyperglycemia; N18.9 Chronic kidney disease, unspecified; D50.9 Iron deficiency anemia, unspecified; E83.52 Hypercalcemia
CPT/HCPCS: 36415; 80053; 80061; 82043; 82306; 82728; 83036; 83540; 83550; 83970; 85025

== ENCOUNTER 2024-02-06 07:28 | Outpatient (RCR) | payer MEDICARE, SELFPAY | END 2024-02-17 23:59 | disposition home or self-care (01) | LOC: HEMC 07:28 | PROVIDERS: PCP Internal Medicine; Visit Provider Internal Medicine Hematology & Oncology | DX: R91.8 Other nonspecific abnormal finding of lung field (principal); E83.52 Hypercalcemia; M81.0 Age-related osteoporosis without current pathological fracture | CPT/HCPCS: G0463 ==

== ENCOUNTER 2024-03-16 04:31 | Inpatient (IN) | payer MEDICARE, SELFPAY ==
[2024-03-16] VITALS (56 sets, daily range): BP systolic 149–180; BP diastolic 40–82; PULSE 75–110; TEMP 36.8–37.1; O2SAT 91–98; BMI 25.5; BMI 26.5
--- OUTSIDE RECORDS SUMMARY | 2024-03-16 04:38 | XMS_ITS | CCD ---
Author Organization [facility] CliniSymt Care Team Providers Care Compound Worker Name Role Phone JOSH GALLEGO Admitting Unavailable JOSH GALLEGO Attending Unavailable NEFTALI NEFF Referring Unavailable RAMIN DE PAZ Primary Care Unavailable Ramin De Paz DO Primary Care Provider Estuardo Epps Unavailable DO Ramin De Paz Primary Care Provider [phone] MD Leo Allison Referring Provider MARY ALICE Gaming Attending Provider TARUN, DR FAUSTIN Primary Care Unavailable MISC, DR RIVERA Consulting Unavailable MISC, DR RIVERA Attending Unavailable MISC, DR RIVERA Admitting Unavailable NIR, JARRETT Pino Consulting Unavailable BALL, DR FAUSTIN Primary Care Unavailable ALLISON, DR LEO Bowman Consulting Unavailable ALLISON, DR LEO Bowman Attending Unavailable ALLISON, DR LEO Bowman Admitting Unavailable BALL, DR FAUSTIN Primary Care Unavailable BALIS, MORGAN Consulting Unavailable BALIS, MORGAN Attending Unavailable BALIS, MORGAN Admitting Unavailable BALL, DR FAUSTIN Admitting Unavailable BALL, DR FAUSTIN Attending Unavailable BALL, DR FAUSTIN Consulting Unavailable BALL, DR FAUSTIN Primary Care Unavailable TARUN, DR FAUSTIN Primary Care Unavailable TARUN, DR FAUSTIN Consulting Unavailable BALL, DR FAUSTIN Admitting Unavailable BALL, DR FAUSTIN Attending Unavailable BALL, DR FAUSTIN Primary Care Unavailable BALL, DR FAUSTIN Consulting Unavailable BALL, DR FAUSTIN Admitting Unavailable BALL, DR FAUSTIN Attending Unavailable BALL, DR FAUSTIN Primary Care Unavailable BALL, DR FAUSTIN Consulting Unavailable TARUN, DR FAUSTIN Admitting Unavailable BALL, DR FAUSTIN Attending Unavailable KING, DR ESTUARDO Subramanian Consulting Unavailable BALL, DR FAUSTIN Primary Care Unavailable BALL, DR FAUSTIN Consulting Unavailable BALL, DR FAUSTIN Attending Unavailable BALL, DR FAUSTIN Referring Unavailable BALL, DR FAUSTIN Admitting Unavailable BALL, DR FAUSTIN Primary Care Unavailable TARUN, DR FAUSTIN Consulting Unavailable TARUN, DR FAUSTIN Attending Unavailable TARUN, DR FAUSTIN Admitting Unavailable TARUN, DR FAUSTIN Primary Care Unavailable ARIAN, DR NEFTALI Payne Consulting Unavailable ARIAN, DR NEFTALI Payne Attending Unavailable ARIAN, DR NEFTALI Payne Admitting Unavailable AHDOOT, SENDY Consulting Unavailable BALL, DR FAUSTIN Primary Care Unavailable CRISTIAN, DR LEO Bowman Attending Unavailable LANA, DR JAIR Bowman Consulting Unavailabl e CRISTIAN, DR LEO Bowman Admitting Unavailable CRISTIAN, DR LEO Bowman Consulting Unavailable KING, DR ESTUARDO Subramanian Consulting Unavailable HAY, DR ROSE Consulting Unavailable DARWICH, GEO Consulting Unavailable Tarun, DO Faustin Primary Care Provider [phone] Nir VILLATORO, DO Jarrett Pino Attending Provider MD Leo Allison Referring Provider [phone] Tarun, DO Faustin Attending Provider [phone] Tarun, DO Faustin Primary Care Provider [phone] Nir VILLATORO, DO Jarrett Pino Attending Provider MD Leo Allison Referring Provider [phone] Tarun, Ramin Unavailable Tarun, DO Faustin Primary Care Provider Nir VILLATORO, DO Jarrett Pino Attending Provider MD Leo Allison Referring Provider [phone] Tarun, DO Faustin Primary Care Provider Nir VILLATORO, DO Jarrett Pino Attending Provider MD Leo Allison Referring Provider Tarun, DO Faustin Attending Provider [facility], DO Ti Attending Provider Ramin De Paz Attending Unavailable Ball, Ramin Admitting Unavailable Ball, Ramin Primary Care Unavailable Ball, Ramin Admitting Unavailable Ball, Ramin Primary Care Unavailable Ball, Ramin Attending Unavailable Nir VILLATORO, Jarrett Pino Attending Unavaila ble Ball, Ramin Primary Care Unavailable Leo Allison Referring Unavailable Nir VILLATORO, Jarrett Pino Admitting Unavaila ble [facility], Ti Admitting Unavailable [facility], Ti Attending Unavailable Ball, Ramin Primary Care Unavailable Ball, Ramin Admitting Unavailable Ball, Ramin Primary Care Unavailable Ball, Ramin Attending Unavailable Tarun, DO Faustin Primary Care Provider Nir VILLATORO, DO Jarrett Pino Attending Provider MD Leo Allison Referring Provider DO Ramin De Paz Attending Provider [facility]uff Attending Provider DO Ramin De Paz Primary Care Provider DO Ramin De Paz Attending Provider [phone] Allergies Allergy Classification Reported Allergen(s) Allergy Type Date of Onset Reaction(s) Facility Dihydrofolate Reductase Inhibitors (antibiotic) (1 source) Trimethoprim Drug Allergy 12-26-19 24 Unknown Reaction [facility] Penicillins (antibiotic) (3 sources) Penicillin G Benzathine Drug Allergy 12-26-19 24 Unknown Reaction [facility] Sulfonamides (antibiotic) (1 source) Sulfamethoxazole Drug Allergy 12-26-19 24 Unknown Reaction [facility] (12 sources) Penicillin Drug Allergy 09-21-19 [address] [facility] Repository (9 sources) Penicillins Drug Allergy 05-04-20 21 Unknown [facility] (20 sources) Sulfamethoxazole / Trimethoprim Drug Allergy 05-04-20 21 Unknown [facility] (20 sources) Penicillin G Benzathine; Translations: [penicillin G benzathine] Drug allergy 06-27-19 24 Unknown, Unknown Reaction [facility] (10 sources) dulaglutide Drug Allergy TRULICITY Comment:Freete xt Needs Updated. [facility] Other (18 sources) Penicillin V Drug Allergy 06-27-19 Unknown, Unknown Reaction [facility] (2 sources) patient allergy list reviewed by nurse or physicia Propensity to adverse reactions 06-15-20 18 Comment:Done [facility] Other (9 sources) Sulfamethoxazole; Translations: [sulfamethoxazole] Drug Allergy 06-27-19 Unknown Reaction [facility] (9 sources) Trimethoprim; Translations: [trimethoprim] Drug Allergy 06-27-19 Unknown Reaction [facility] (1 source) Penicillin Drug Allergy 06-27-19 [facility] Repository (1 source) Penicillins Drug allergy (disorder) 06-28-19 [facility] Repository Medications Current Medications Medication Drug Class(es) Dates Sig (Normalized) Sig (Original) amLODIPine 5 mg oral tablet (20 sources) Dihydropyridine Calcium Channel Jefe Start: 06-08-2021 take 5 mg by mouth once daily Amlodipine Active 5 MG PO Daily June 08, 2021 1:00am amLODIPine Benzoate (1 source) amLODIPine Benzoate Active Aspir-81 (19 sources) Aspir-81 Active aspirin 81 mg delayed release oral tablet (15 sources) Platelet Aggregation Inhibitor, Nonsteroidal Anti-inflammatory Drug Start: 06-08-2021 take 81 mg by mouth once daily Aspirin Active 81 MG PO Daily June 08, 2021 1:00am take 1 tablet by mouth once breanna y aspirin,buffd-calcium carb-mag (ASPIRIN, BUFFERED) 325 mg buffered tablet Take 1 tablet by mouth once daily. 0 Active Comment on above: Take 1 tablet by dick th once daily. atorvastatin (20 sources) HMG-CoA Reductase Inhibitor Start: 12-18-2023 take 1 tablet by mouth in the evening Atorvastatin Active 0 .ROUTE .COMPLEX 90 December 18, 2023 5:20pm TAKE 1 TABLET BY MOUTH IN THE EVENING Start: 06-08-2021 End: 12-18-2023 take 10 mg by mouth once daily Atorvastatin Discontinu ed 10 MG PO Daily June 08, 2021 1:00am December 18, 2023 5:20pm Atorvastatin Arnulfo cium Active biotin 10 mg oral tablet (15 sources) Start: 08-24-2023 take 10 mg by mouth once daily Biotin Active 10 MG PO Daily August 24, 2023 1:00am take 1 tablet by dick th every twenty-four hours Biotin 10 MG 1 tablet Orally Once a day Active carvedilol 6.25 mg oral tablet (20 sources) alpha-Adrenergic Jefe, beta-Adrenergic Jefe Start: 01-01-2024 take 1 tablet by mouth twice daily Carvedilol Active 0 .ROUTE .COMPLEX 60 January 01, 2024 1:27pm TAKE 1 TABLET BY MOUTH TWICE DAILY Start: 08-09-2021 End: 01-01-2024 take 6.25 mg by mouth twice daily Carvedilol Discontinued 6.25 MG PO Twice daily August 09, 2021 1:00am January 01, 2024 1:27pm cholecalciferol 0.05 mg oral capsule (20 sources) Vitamin D Start: 07-14-2022 take 2000 [IU] by mouth once daily Cholecalciferol (Vitamin D3) Active 2000 UNIT PO Daily July 14, 2022 1:00am Dialyvite Vitami n D3 Max 1.25 MG (77953 UT) 1 tablet Orally Active Dialyvite Vitami n D3 Max 1.25 MG (16464 UT) 1 tablet Orally Active cloNIDine (20 sources) Central alpha-2 Adrenergic Agonist Start: 11-02-2023 take 1 tablet by mouth twice daily Clonidine Hcl Active 0 .ROUTE .COMPLEX 180 November 02, 2023 6:22pm TAKE 1 TABLET BY MOUTH TWICE DAILY Start: 08-24-2023 End: 11-02-2023 take 0.1 mg by mouth twice daily Clonidine Hcl Discontinued 0.1 MG PO Twice daily August 24, 2023 1:00am November 02, 2023 6:22pm take 1 tablet by dick th twice daily cloNIDine HCl 0.1 mg TAKE 1 TABLET BY MOUTH TWICE DAILY Active take 1 tablet by dick th every twenty-four hours cloNIDine HCl 0.1 MG 1 tablet Orally Once a day Active clopidogrel 75 mg oral tablet (20 sources) P2Y12 Platelet Inhibitor Start: 06-08-2021 take 75 mg by mouth once daily Clopidogrel Active 75 MG PO Daily June 08, 2021 1:00am clopidogrel bisu lfate (CLOPIDOGREL ORAL) Take by mouth once daily. 0 Active Comment on above: Take by mouth once d aily. Famotidine (20 sources) Histamine-2 Receptor Antagonist Start: 11-20-2023 take 1 tablet by mouth twice daily Famotidine Active 0 .ROUTE .COMPLEX 180 November 20, 2023 3:42pm TAKE 1 TABLET BY MOUTH TWICE DAILY Start: 08-24-2023 End: 11-20-2023 take 20 mg by mouth once daily Famotidine Discontinued 20 MG PO Daily August 24, 2023 1:51pm November 20, 2023 3:42pm Start: 06-08-2021 End: 08-24-2023 take 10 mg by mouth once daily Famotidine Discontinued 10 MG PO Daily June 08, 2021 1:00am August 24, 2023 1:52pm take 1 tablet by dick th twice daily Famotidine 20 mg TAKE 1 TABLET BY MOUTH TWICE DAILY Active furosemide 20 mg oral tablet (20 sources) Loop Diuretic Start: 08-09-2021 take 20 mg by mouth every other day Furosemide Active 20 MG PO As Directed August 09, 2021 1:00am every other day Start: 08-09-2021 take 20 mg by mouth once daily Furosemide Active 20 MG PO Daily August 09, 2021 12:00am gabapentin 100 mg oral capsule (20 sources) Anti-epileptic Agent Start: 06-08-2021 take 100 mg by mouth twice daily Gabapentin Active 100 MG PO Twice daily June 08, 2021 1:00am Gabapentin Activ e glipiZIDE 10 mg oral tablet (20 sources) Sulfonylurea Start: 11-14-2023 take 1 tablet by mouth 30 minutes before breakfast Glipizide Active 0 .ROUTE .COMPLEX 180 November 14, 2023 2:27pm TAKE 1 TABLET BY MOUTH 30 MINUTES BEFORE BREAKFAST then TAKE 1 TABLET BY MOUTH WITH evening meal Start: 06-08-2021 End: 11-14-2023 take 10 mg by mouth twice daily Glipizide Discontinued 10 MG PO Twice daily June 08, 2021 1:00am November 14, 2023 2:27pm take 1 tablet by dick th once daily 30 minutes before breakfast glipiZIDE 10 MG 1 tablet 30 minutes before breakfast Orally Once a day Active glipiZIDE Active Losartan (20 sources) Angiotensin 2 Receptor Jefe Start: 11-06-2023 take 1 tablet by mouth twice daily Losartan Active 0 .ROUTE .COMPLEX 180 November 06, 2023 12:45pm TAKE 1 TABLET BY MOUTH TWICE DAILY Start: 11-06-2023 End: 11-06-2023 take 50 mg by mouth twice daily Losartan Discontinued 50 MG PO Twice daily November 06, 2023 12:00am November 06, 2023 12:45pm Start: 06-08-2021 End: 11-06-2023 take 100 mg by mouth once daily Losartan Discontinued 100 MG PO Daily June 08, 2021 1:00am November 06, 2023 11:18am take 1 tablet by dick th twice daily Losartan Potassium 50 mg TAKE 1 TABLET BY MOUTH TWICE DAILY Active Losartan [facility] um Active metFORMIN hydrochloride 1000 mg / SITagliptin 50 mg oral tablet (20 sources) Biguanide, Dipeptidyl Peptidase 4 Inhibitor Start: 06-08-2021 take 1 tablet by mouth once daily Sitagliptin Phos-Metformin ([place]) 50-1,000 mg tablet Active 1 TAB PO Daily June 08, 2021 1:00am Start: 06-08-2021 take 1 tablet by dick th twice daily Sitagliptin Phos-Metformin (Janumet) 50-1,000 mg tablet Active 1 TAB PO [...] polysaccharide iron complex 150 mg oral capsule (15 sources) Start: 06-08-2021 End: 07-14-2022 Polysaccharide Iron Complex (Iferex 150) 150 mg iron capsule Discontinued 150 MG PO As Directed June 08, 2021 1:00am July 14, 2022 10:56am Every other day iFerex 150 Activ e [...] 06-21-2021 06-28-2021 Episodic Deficiency and other anemia (17 sources) Iron deficiency anemia, unspecified; Translations: [Iron deficiency anemia, unspecified] Onset: 06-17-2021 Resolved: 06-24-2021 Episodic Deficiency and other anemia (20 sources) Pernicious anemia; Translations: [Vitamin B12 deficiency anemia due to intrinsic factor deficiency] 01-10-2024 Episodic Deficiency and other anemia (11 sources) Vitamin B12 deficiency anemia due to intrinsic factor deficiency; Translations: [Pernicious anemia] Episodic Deficiency and other anemia (13 sources) Anemia; Translations: [Anemia, unspecified] Onset: 08-16-2018 [...] D deficiency] Onset: 06-04-2022 Chronic Nutritional deficiencies (11 sources) Iron deficiency; Translations: [Iron deficiency] 01-13-2023 Episodic Osteoporosis (1 source) Age-related osteoporosis without current pathological fracture; Translations: [AGE-REL OSTEOPOR W/O CURR PATH FX] Onset: 03-17-2022 Chronic Other aftercare (2 sources) 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 boil 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 operator (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; Translations: [OTH LONG-TERM CURRENT DRUG THERAPY] Onset: 08-18-2021 Episodic Other and ill-defined cerebrovascular disease (20 sources) Cerebrovascular disease; Translations: [Cerebrovascular disease, unspecified] Chronic Other and ill-defined cerebrovascular disease (20 sources) Cerebral atherosclerosis; Translations: [Cerebral atherosclerosis] 08-24-2023 Chronic Other and ill-defined cerebrovascular disease (14 sources) Cerebral atherosclerosis; Translations: [Cerebral atherosclerosis] Chronic Other diseases of veins and lymphatics [...] lung; Translations: [Solitary pulmonary nodule] Episodic Other lower respiratory disease (11 sources) Other nonspecific abnormal finding of lung field; Translations: [Swelling, mass, or lump in chest] Onset: 08-14-2023 08-24-2023 Episodic Other lower respiratory disease (7 sources) Lung mass; Translations: [Other nonspecific abnormal finding of lung field] 08-23-2023 Episodic Other nervous system disorders (1 source) Aphasia; Translations: [APHASIA] Onset: 09-19-2016 Chronic Other nutritional; endocrine; and metabolic disorders (15 sources) Hypercalcemia; Translations: [Hypercalcemia] Onset: 05-31-2022 Chronic [...] and visceral atherosclerosis (17 sources) 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, left leg; Translations: [Atherosclerosis of pechanga artery of left lower extremity with intermittent claudication] Chronic Residual codes; unclassified (20 sources) Asymptomatic menopausal state; Translations: [Menopause] Onset: 03-17-2022 Episodic Residual codes; unclassified (2 sources) Postmenopausal state; Translations: [Asymptomatic menopausal state] Episodic Residual codes; unclassified (3 sources) Procedure and treatment not carried out because of patient's decision for unspecified reasons; Translations: [Surgical or other procedure not carried out because of patient's decision] 12-26-2023 Episodic Spondylosis; intervertebral disc disorders; other back problems (20 sources) Lumbar spondylosis; Translations: [Spondylosis without myelopathy or radiculopathy, lumbar region] Onset: 12-01-2016 Chronic Spondylosis; intervertebral disc disorders; other back problems (2 sources) Low back pain; Translations: [Low back pain, unspecified] Episodic Substance-related disorders (20 sources) Tobacco user; Translations: [Nicotine dependence, cigarettes, in remission] 08-24-2023 Chronic Thyroid disorders (20 sources) Thyroid nodule; [...] Resolved: 06-21-2021 Episodic Other aftercare (1 source) jail (current) use of aspirin; Translations: [LONG-TERM CURRENT USE OF ASPIRIN] Onset: 08-18-2021 Episodic Other aftercare (1 source) 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/antip latelets; Translations: [SCRUB WHEEL OPERATOR ANTITHROMBOT/ANTIPLAT LETS] Onset: 06-23-2021 Episodic Other circulatory [...] Test Name Value Interpretation Reference Range Facility Basophils Auto (Bld) [#/Vol] on 01-09-2024 Basophils (Bld) [#/Vol] 0.1 10 3/uL 0.0-0.1 [facility] Basophils/100 WBC Auto (Bld) on 01-09-2024 Basophils/100 WBC (Bld) 0.7 % 0.2-2.0 [facility] Cholesterol in LDL Calc [Mas s/Vol]on 01-09-2024 Cholesterol in LDL [Mass/Vol] 33.6 mg/dL [facility] Comment on above: <100 mg/dl [id number] 0-129 mg/dl NEAR OR ABOVE [id number] mg/dl BORDERLINE [id number] mg/dl HIGH>190 mg/dl VERY HIGH Cholesterol in VLDL Calc [Ma ss/Vol]on 01-09-2024 Cholesterol in VLDL [Mass/Vol] 21.4 mg/dL [facility] Eosinophils/100 WBC Auto (Bl d)on 01-09-2024 Eosinophils/100 WBC (Bld) 3.1 % 0.9-7.0 [facility] Erythrocyte distribution wid th Auto (RBC) [Ratio]on 01-09-2024 Erythrocyte distribution width (RBC) [Ratio] 14.0 % 11.0-15.0 [facility] Estimated glomerular filtrat ion rate (GFR) non- Americanon 01-09-2024 GFR/1.73 sq M.predicted among non-blacks MDRD (S/P/Bld) [Vol rate/Area] 49 mL/min/{1.73_m2} Low >=60 [facility] Globulin Calc (S) [Mass/Vol] on 01-09-2024 Globulin (S) [Mass/Vol] 3.8 g/dL [facility] Glucose mean value [Mass/vol ume] in Blood Estimated from glycated hemoglobinon 01-09-2024 Average glucose Estimated from glycated hemoglobin (Bld) [Mass/Vol] 154 mg/dL [facility] Hematocrit Auto (Bld) [Volum e fraction]on 01-09-2024 Hematocrit (Bld) [Volume fraction] 37.2 % 36.0-48.0 [facility] Hemoglobin [Mass/volume] in Bloodon 01-09-2024 Hemoglobin (Bld) [Mass/Vol] 11.9 g/dL Low 12.0-16.0 [facility] Iron binding capacity [Mass/ volume] in Serum or Plasmaon 01-09-2024 Iron binding capacity [Mass/Vol] 275.0 ug/dL 250.0-450. 0 [facility] Iron saturation [Mass Fracti on] in Serum or Plasmaon 01-09-2024 Iron saturation [Mass fraction] 16.0 % [facility] Laboratory - Chemistry and C hemistry - challengeon 01-09-2024 Albumin [Mass/Vol] 3.8 g/dL 3.4-5.0 [facility] ALP [Catalytic activity/Vol] 116 U/L 46-116 [facility] ALT [Catalytic activity/Vol] 25 U/L 14-59 [facility] AST [Catalytic activity/Vol] 23 U/L 15-37 [facility] Bilirubin [Mass/Vol] 0.4 mg/dL 0.2-1.0 [facility] Calcium [Mass/Vol] 11.0 mg/dL High 8.5-10.1 [facility] Chloride [Moles/Vol] 101 mmol/L 98-107 [facility] Cholesterol [Mass/Vol] 111 mg/dL <=200 [facility] Cholesterol in HDL [Mass/Vol] 56 mg/dL 40-60 [facility] Comment on above: > or =60 mg/dl - LOW CARDIOVASCULAR RISK<40 mg/dl - HIGH CARDIOVASCULAR RISK CO2 [Moles/Vol] 26.9 mmol/L 21.0-32.0 [facility] Creatinine [Mass/Vol] 1.08 mg/dL High 0.55-1.02 [facility] Ferritin [Mass/Vol] 95.0 ng/mL 8.0-252.0 [facility] GFR/1.73 sq M.predicted MDRD (S/P/Bld) [Vol rate/Area] 59 mL/min/{1.73_m2} Low >=60 [facility] Glucose [Mass/Vol] 188 mg/dL High 74-106 [facility] Iron [Mass/Vol] 44.0 ug/dL Low 50.0-170.0 [facility] Potassium [Moles/Vol] 5.5 mmol/L High 3.5-5.1 [facility] Protein [Mass/Vol] 7.6 g/dL 6.4-8.2 [facility] Sodium [Moles/Vol] 138 mmol/L 136-145 [facility] Triglyceride [Mass/Vol] 107 mg/dL <=150 [facility] Urea nitrogen [Mass/Vol] 19.0 mg/dL High 7.0-18.0 [facility] Urea nitrogen/Creatinine [Mass ratio] 17.6 mg/mg [facility] Laboratory - Hematology and Cell countson 01-09-2024 HbA1c (Bld) [Mass fraction] 7.0 % High 4.5-6.2 [facility] Comment on above: ADA RECOMMENDED LIMI T 4.0 - 6.0ADA THERAPEUTIC TARGET < 7.0ACTION SUGGESTED> 7.0 Immature granulocytes/100 WBC (Bld) 0.5 % 0.0-0.5 [facility] Leukocytes [#/volume] correc laurel for nucleated erythrocytes in Blood by Automated counon 01-09-2024 WBC corrected for nucl RBC Auto (Bld) [#/Vol] 9.1 10 3/uL 4.0-11.0 [facility] Lymphocytes Auto (Bld) [#/Vo l]on 01-09-2024 Lymphocytes (Bld) [#/Vol] 2.4 10 3/uL 1.2-3.8 [facility] Lymphocytes/100 WBC Auto (Bl d)on 01-09-2024 Lymphocytes/100 WBC (Bld) 26.6 % 20.5-60.0 [facility] MCH Auto (RBC) [Entitic mass ]on 01-09-2024 MCH (RBC) [Entitic mass] 28.3 pg 26.7-34.0 [facility] MCHC Auto (RBC) [Mass/Vol]on 01-09-2024 MCHC (RBC) [Mass/Vol] 32.0 g/dL 29.9-35.2 [facility] MCV Auto (RBC) [Entitic vol] on 01-09-2024 MCV (RBC) [Entitic vol] 88.4 fL 81.0-99.0 [facility] Microalbumin [Mass/volume] i n Urineon 01-09-2024 Albumin DL <= 20 mg/L (U) [Mass/Vol] 2.6 mg/dL <=30.0 [facility] Monocytes Auto (Bld) [#/Vol] on 01-09-2024 Monocytes (Bld) [#/Vol] 0.8 10 3/uL 0.3-0.8 [facility] Monocytes/100 WBC Auto (Bld) on 01-09-2024 Monocytes/100 WBC (Bld) 8.9 % 1.7-12.0 [facility] Neutrophils Auto (Bld) [#/Vo l]on 01-09-2024 Neutrophils (Bld) [#/Vol] 5.5 10 3/uL 1.4-6.5 [facility] Neutrophils/100 WBC Auto (Bl d)on 01-09-2024 Neutrophils/100 WBC (Bld) 60.2 % 43.0-75.0 [facility] No Panel Informationon 01-08 25-Hydroxy Vitamin D Total 32.6 ng/mL [facility] Comment on above: <20 ng/mL Vit D defi cient20-<30 ng/mL Vit D [id number] ng/mL Vit D sufficient>100 ng/mL Potential Toxicity Eosinophils # (Auto) 0.3 10 3/uL 0.0-0.7 [facility] Immature Granulocyte # (Auto) 0.05 10 3/uL High 0.00-0.03 [facility] Parathyroid Hormone (Intact) 37 pg/mL 15-65 [facility] Comment on above: Performed at: - [address] [id number] Director: Rio Huber PhD, Phone: [phone] Platelet mean volume Auto (B ld) [Entitic vol]on 01-09-2024 Platelet mean volume (Bld) [Entitic vol] 10.9 fL 9.5-13.5 [facility] Platelets Auto (Bld) [#/Vol] on 01-09-2024 Platelets (Bld) [#/Vol] 283 10 3/uL 150-450 [facility] RBC Auto (Bld) [#/Vol]on RBC (Bld) [#/Vol] 4.21 10 6/uL 4.20-5.40 [facility] Serum or plasma albumin/glob ulin mass ratioon 01-09-2024 Albumin/Globulin [Mass ratio] 1.0 {ratio} [facility] Serum or plasma anion gap de terminationon 01-09-2024 Anion gap [Moles/Vol] 15.6 mmol/[facility] Serum or plasma total choles terol/high density lipoprotein (HDL) cholesterol mass julio cesar 01-09-2024 Cholesterol.total/Chol esterol in HDL [Mass ratio] 2.0 {ratio} [facility] Comment on above: 3.3 - 4.4 LOW RISK4. 4 - 7.1 AVERAGE RISK7.1 - 11.0 MODERATE RISK>11.0 HIGH RISK Glucose Glucometer (BldC) [M ass/Vol]Ordered By: Ramin De Paz on 08-14-2023 Glucose [Mass/Vol] 171 mg/dL [facility] Comment on above: Random Glucose Refer ence Range is dependent on time and content of last meal. Glucose of more than 200 mg/dL in a nonstressed, ambulatory subject supports the diagnosis of Diabetes Mellitus. Glucose Poct Glucometerson 0 08-14-2023 Glucose [Mass/Vol] 171 mg/dL Normal [facility] Comment on above: Result Comment: [place] om Glucose Reference Range is dependent on time and content of last meal. Glucose of more than 200 mg/dL in a nonstressed, ambulatory subject supports the diagnosis of Diabetes Mellitus. PERFORMED BY: [place] [address] PATHOLOGIST GOLD LEAF [employer]INTER RACHELLE MACDONALD M.D. Performed By: #### G LULS #### Point of Care testing , PET tumor init tx strat sb-m ton 08-14-2023 PET tumor init tx strat sb-mt [facility] [address] [address] Nuclear Medicine Report Signed Patient: Maame Velasco MR#: [id number] : 1945 Acct:[id number] Age/Sex: 77 / F ADM Date: 08/14/23 Loc: PE Room: Type: [facility] Attending Dr: Ramin De Paz DO Copies to: DO Neftali Calderon II, MD Ordering Provider: Ramin De Paz DO Date of Service: 08/14/23 PET/PET tumor init tx strat sb-mt: PULMONARY MASS PET tumor init tx strat sb-mt 08/14/2023 10:10 AM SIGNS AND SYMPTOMS: Lung mass PROTOCOL: PET images were obtained from skull base to mid thigh after intravenous radiotracer administration. Low-dose CT was obtained from skull base to mid thigh. After attenuation correction of PET imaging, fused PET CT images were generated and reconstructed in axial, sagittal, coronal planes. COMPARISON: 07/25/2023 RADIOPHARMACEUTICAL: 13.2 mCi of intravenous fluorine 18 FDG. Blood glucose: 1 71 mg/dL FINDINGS: There is a 3.2 cm FDG avid mass in the left lower lobe posteriorly with a maximum SUV of 7.1. There are more groundglass attenuation areas of FDG accumulation in the left lower lobe posteriorly and inferiorly. This may represent an ill-defined malignancy or infectious process. FDG avid mediastinal lymph nodes are noted with the most pronounced to the left of the trachea and anterior to the descending aorta with a maximum SUV of 3.0. There is a non-FDG avid 6 mm calcified granuloma in the right lower lobe. There are accompanying calcified right hilar lymph nodes. There is a partially calcified fibroid within the uterus to the right of midline. Along the expected location of the endometrium there is a focus of increased FDG avidity with a maximum SUV of 6.0. This is of uncertain etiology but is suspicious for an intrauterine malignancy. Physiologic radiotracer accumulation is noted in the brain, myocardium, liver, spleen, kidneys, ureters, bladder, and bowel. PET/PET tumor init tx strat sb-mt IMPRESSION: There is a 3.2 cm FDG avid mass in the left lower lobe posteriorly with a maximum SUV of 7.1. There are more groundglass attenuation areas of FDG accumulation in the left lower lobe posteriorly and inferiorly. This may represent an ill-defined malignancy or infectious process. FDG avid mediastinal lymph nodes are noted with the most pronounced to the left of the trachea and anterior to the descending aorta with a maximum SUV of 3.0. This is suspicious for metastatic lymphadenopathy. There is a partially calcified fibroid within the uterus to the right of midline. Along the expected location of the endometrium there is a focus of increased FDG avidity with a maximum SUV of 6.0. This is of uncertain etiology but is suspicious for an intrauterine malignancy. Impression dictated by: Neftali Saavedra M.D.08/14/2023 3:47 PM Dictation Location: [place] [id number] Transcribed By: [facility] 08/14/23 1547 Dictated By: Neftali Saavedra II, MD 08/14/23 1539 Signed By: 08/14/23 1547 [facility] 08-09-2023 L Specimen: Re ceived: 08/11/23-1147 Status: JADE Viverosq Num: [id number] Spec Type: Cytology Subm Dr: Ti Richardson DO Tissues: A PLEURAL FLUID (LT LOWER LOBE) B PLEURAL FLUID (LT LOWER LOBE POST EPI ADM) Procedures: PAS - LGRN/2, HE/4, Gross/Micro L4/2, Cyto Prepstain/2, PAPSTN/2 Age/ Patient Sex Location Account Attending Physician Maame Velasco 77/F LABELL [id number] Ti Richardson DO SPEC NUM: [id number] RECD: 08/11/23 STATUS: JADE MANJARREZ NUM: [id number] PEGGY: 08/09/23-[address]: Ti Richardson DO ENTERED: 08/11/23-1150 [facility] DR: Frank,Lab SPEC TYPE: Cytology DEPT: MARIANGEL SUERO ENTERED BY: [id number] RECV BY: [id number] ORDERED: PAS - LGRN/2, HE/4, Gross/Micro L4/2, Cyto Prepstain/2, PAPSTN/2 ORDERED: PAS - LGRN/2, HE/4, Gross/Micro L4/2, Cyto Prepstain/2, PAPSTN/2 Pathological Diagnosis A, lower lobe of lung bronchial lavage, cytology: -No evidence of malignant cells -Moderate degenerated debris are admixed with a few bronchial respiratory epithelial cells, and occasional macrophages and lymphocytes -Cell block section also showing similar findings, including additionally, at least, rare degenerated PMNs also noted B, lower lobe of lung bronchial lavage post epinephrine, cytology: -No evidence of malignant cells -Moderate degenerated debris are admixed with few bronchial respiratory epithelial cells and PMNs, and occasional macrophages and lymphocytes similar to part A specimen, suggesting recently developed lung injury and/or bronchopneumonitis -Cell block section also showing similar findings in addition to the large admixed portions of fibrin clot with the admixed leukocytes Note: -PASF special stains are negative for identified fungal element in both parts A and B. Aspiration pneumonitis also cannot be completely excluded Specimen: [id number] Received: 08/11/23 Status: JADE Manjarrez Num: [id number] Spec Type: Cytology Subm Dr: Ti Richardson DO Tissues: A PLEURAL FLUID (LT LOWER LOBE) B PLEURAL FLUID (LT LOWER LOBE POST EPI ADM) Procedures: PAS - LGRN/2, HE/4, Gross/Micro L4/2, Cyto Prepstain/2, PAPSTN/2 Patient: Maame Velasco [id number] (Continued) Specimen: BC Received: 08/11/23 (Continued) Signed (signature on file) Gagan Cheney MD 08/14/23 193 Specimen: BC Received: 08/11/23 Status: JADE Manjarrez Num: [id number] Spec Type: Cytology Subm Dr: Ti Richardson DO Tissues: A PLEURAL FLUID (LT LOWER LOBE) B PLEURAL FLUID (LT LOWER LOBE POST EPI ADM) Procedures: PAS - LGRN/2, HE/4, Gross/Micro L4/2, Cyto Prepstain/2, PAPSTN/2 Patient: Maame Velasco [id number] (Continued) Specimen: BC Received: 08/11/23 (Continued) Clinical Information Left lung mass. No endobronchial lesions. Final diagnosis pending cytology Gross Description A. Received fresh labeled with the patient's name, date of and left lower lobe lavage per requisition is 10 ml colorless cloudy unfixed fluid. 1 Thin Prep slides are prepared. 1 cell blocks are prepared. (CC/ak) B. Received fresh labeled with the patient's name, date of and left lower lobe lavage post epinephrine administration per requisition is 10 ml red cloudy unfixed fluid. 1 Thin Prep slides are prepared. 1 cell blocks are prepared. (CC/ak) CPT Codes 32850 x 2 45402 x 2 Specimen: [id number] Received: 08/11/23 Status: JADE Manjarrez Num: [id number] Spec Type: Cytology Subm Dr: Ti Richardson DO Tissues: A PLEURAL FLUID (LT LOWER LOBE) B PLEURAL FLUID (LT LOWER LOBE POST EPI ADM) Procedures: PAS - LGRN/2, HE/4, Gross/Micro L4/2, Cyto Prepstain/2, PAPSTN/2 Patient: Maame Velasco [id number] (Continued) Signed (signature on file) Gagan Cheney MD 08/14/231935 Normal [facility] Glucose Glucometer (BldC) [M ass/Vol]Ordered By: Ramin De Paz on 08-07-2023 Glucose [Mass/Vol] 244 mg/dL [facility] Comment on above: Random Glucose Refer ence Range is dependent on time and content of last meal. Glucose of more than 200 mg/dL in a nonstressed, ambulatory subject supports the diagnosis of Diabetes Mellitus. Glucose Poct Glucometerson 0 08-07-2023 Glucose [Mass/Vol] 244 mg/dL [facility] Comment on above: Result Comment: [place] om Glucose Reference Range is dependent on time and content of last meal. Glucose of more than 200 mg/dL in a nonstressed, ambulatory subject supports the diagnosis of Diabetes Mellitus. PERFORMED BY: [facility] [address] [place] [address] PATHOLOGIST GOLD LEAF PRINTER RACHELLE MACDONALD M.D. Performed By: #### G LULS #### Point of Care testing , Aspergillus niger IgE Ab [Un its/volume] in Serumon 08-01-2023 A. niger IgE Qn (S) Negative Neg:<1:1 [facility] Histoplasma capsulatum antib janel detection by complement fixationon 08-01-2023 H. capsulatum Ab CF Ql (S) Negative Neg:<1:2 [facility] Comment on above: Performed at: [facility] [address] [id number] Director: Uziel Granado MD, Phone: [phone] Laboratory - Hematology and Cell countson 08-01-2023 ESR (Bld) [Velocity] 34 mm/h <=30 [facility] No Panel Informationon 08-01 Anti-Double Strand DNA Antibody 10 [IU]/mL 0-9 [facility] Comment on above: Negative <5 Equivoca l 5 - 9 Positive >9 Anti-Nuclear Antibody Interpret Comment . [facility] Comment on above: Autoantibody Disease Association -------- Condition Frequency ---------Antinuclear Antibody, SLE, mixed connectiveDirect (YUDI-D) tissue diseases ---------dsDNA SLE 40 - 60% ---------Chromatin Drug induced SLE 90% SLE 48 - 97% ---------SSA (Ro) SLE 25 - 35% Sjogren's Syndrome 40 - 70% Lupus 100% ---------SSB (La) SLE 10% Sjogren's Syndrome 30% ---------Sm (anti-Neff) SLE 15 - 30% ---------MANAGING COGNITIVE ENGINEER Mixed Connective Tissue Disease 95%(U1 nRNP, SLE 30 - 50%anti-ribonucleoprotein) Polymyositis and/or Dermatomyositis 20% ---------Scl-70 (antiDNA Scleroderma (diffuse) 20 - 35%topoisomerase) Crest 13% ---------Kemi-1 Polymyositis and/or Dermatomyositis 20 - 40% ---------Centromere B Scleroderma - Crest variant 80%Performed at: [facility] [address] [id number] Director: Rio Huber PhD, Phone: [phone] Aspergillus fumigatus Antibody Negative Neg:<1:1 [facility] Blastomyces dermatitidis Antibody Negative Neg:<1:1 [facility] Comment on above: Performed at: - [facility] [address] [id number] Director: Uziel Granado MD, Phone: [phone] MANAGING COGNITIVE ENGINEER Antibody <0.2 AI 0.0-0.9 [facility] Histoplasma Galactomannan Antigen Negative <0.5 ng/mL [facility] Comment on above: This test was ledya mccrary and its performance characteristicsdetermined by [employer]. It has not been cleared orapproved by the Food and Drug Administration.Performed at: [address] [place] [address] [id number] [facility], [place] [id number] Director: Tamy Garcia MD, Phone: [phone] Serum Aspergillus flavus ant ibody detection by immunodiffusionon 08-01-2023 A. flavus Ab Immune diff Ql (S) Negative Neg:<1:1 [facility] Serum Sjogrens syndrome-A ex tractable nuclear antibody assay (units/volume)on 08-01-2023 Sjogrens syndrome-A extractable nuclear Ab Qn (S) <0.2 AI 0.0-0.9 [facility] Serum Sjogrens syndrome-B ex tractable nuclear antibody assay (units/volume)on 08-01-2023 Sjogrens syndrome-B extractable nuclear Ab Qn (S) <0.2 AI 0.0-0.9 [facility] Serum Neff extractable nucl ear antigen (DEBBIE) antibody assay (units/volume)on 08-01-2023 Neff extractable nuclear Ab Qn (S) <0.2 AI 0.0-0.9 [facility] Serum angiotensin converting enzyme (KORIN) measurementon 08-01-2023 Angiotensin converting enzyme [Catalytic activity/Vol] 59 U/L 14-82 [facility] Serum or plasma cyclic adeno sine monophosphate measurement (moles/volume)on 08-01-2023 Adenosine monophosphate.cyclic [Moles/Vol] 5 units 0-19 [facility] Comment on above: Negative <20 Weak po sitive 20 - 39 Moderate positive 40 - 59 Strong positive >59 Serum or plasma free cefurox jesus alberto measurement (mass/volume)on 08-01-2023 Cefuroxime free [Mass/Vol] Positive Negative [facility] Serum or plasma rheumatoid f actor measurement (units/volume)on 08-01-2023 Rheumatoid factor Qn [IU]/mL <14.0 [facility] Comment on above: Performed at: CB - L [address] [id number] Director: Rio Huber PhD, Phone: [phone] A1C with Estimated Average G luon 07-13-2023 Glucose [Mass/Vol] 232 mg/dL Normal [facility] Comment on above: Result Comment: PERF ORMED BY: [place] [address] PATHOLOGIST GOLD LEAF PRINTER RACHELLE MACDONALD M.D. Performed By: #### A 1C [facility] eA #### [facility] [address] HbA1c (Bld) [Mass fraction] 9.7 % High 4.3-5.6 [facility] Comment on above: Result Comment: Incr eased risk for diabetes: 5.7 - 6.4 diabetes: >6.4 glycemic control for adults with diabetes: <7.0 Performed By: #### A 1C [facility] eA #### [address] Alanine aminotransferase [En zymatic activity/volume] in Serum or PlasmaOrdered By: Jarrett Loyola on 07-13-2023 ALT [Catalytic activity/Vol] 19 U/L 7-52 [facility] Albumin [Mass/volume] in Ser um or Plasma by Bromocresol green (BCG) dye binding methoOrdered By: Jarrett Loyola on 07-13-2023 Albumin BCG dye [Mass/Vol] 4.2 g/dL 3.5-5.7 [facility] Alkaline phosphatase [Enzyma tic activity/volume] in Serum or PlasmaOrdered By: Jarrett Loyola on 07-13-2023 ALP [Catalytic activity/Vol] 107 U/L 34-104 [facility] Aspartate aminotransferase [ Enzymatic activity/volume] in Serum or PlasmaOrdered By: Jarrett Loyola on 07-13-2023 AST [Catalytic activity/Vol] 15 U/L 13-39 [facility] Basophils Auto (Bld) [#/Vol] Ordered By: Jarrett Loyola on 07-13-2023 Basophils (Bld) [#/Vol] 0.1 10*3/uL 0.0-0.2 [facility] Basophils/100 WBC Auto (Bld) Ordered By: Jarrett Loyola on 07-13-2023 Basophils/100 WBC (Bld) 0.8 % . [facility] Bilirubin.total [Mass/volume ] in Serum or PlasmaOrdered By: Jarrett Loyola on 07-13-2023 Bilirubin [Mass/Vol] 0.5 mg/dL 0.3-1.0 [facility] Calcium [Mass/volume] in Ser um or PlasmaOrdered By: Jarrett Loyola on 07-13-2023 Calcium [Mass/Vol] 10.7 mg/dL 8.6-10.3 [facility] Carbon dioxide, total [Moles /volume] in Serum or PlasmaOrdered By: Jarrett Loyola on 07-13-2023 CO2 [Moles/Vol] 28.9 mmol/L 21.0-31.0 [facility] Chloride [Moles/volume] in S valdo or PlasmaOrdered By: Jarrett Loyola on 07-13-2023 Chloride [Moles/Vol] 101 mmol/L 98-107 [facility] Complete Blood Count Auto Di ffon 07-13-2023 Basophils (Bld) [#/Vol] 0.1 10*3/uL Normal 0.0-0.2 [facility] Comment on above: Result Comment: PERF ORMED BY: [facility] [address] [place] [address] PATHOLOGIST GOLD LEAF PRINTER RACHELLE MACDONALD M.D. Performed By: #### F E and TIBC, CBC, CMP, TIM #### [facility] [address] [place] [address] [place] Basophils/100 WBC (Bld) 0.8 % Normal . [facility] Comment on above: Performed By: #### F E and TIBC, CBC, CMP, TIM #### [facility] [address] [place] [address] [place] Eosinophils (Bld) [#/Vol] 0.2 10*3/uL Normal 0.0-0.45 [facility] Comment on above: Performed By: #### F E and TIBC, CBC, CMP, TIM #### [facility] [address] [place] [address] [place] Eosinophils/100 WBC (Bld) 2.5 % Normal . [facility] Comment on above: Performed By: #### F E and TIBC, CBC, CMP, TIM #### [address] Erythrocyte distribution width (RBC) [Ratio] 13.3 % Normal 11.9-15.3 [facility] Comment on above: Performed By: #### F E and TIBC, CBC, CMP, TIM #### [address] Hematocrit (Bld) [Volume fraction] 35.2 % Normal 34.0-46.4 [facility] Comment on above: Performed By: #### F E and TIBC, CBC, CMP, TIM #### [address] Hemoglobin (Bld) [Mass/Vol] 12.0 g/dL Normal 11.8-15.4 [facility] Comment on above: Performed By: #### F E and TIBC, CBC, CMP, TIM #### [address] Lymphocytes (Bld) [#/Vol] 2.2 10*3/uL Normal 1.00-4.8 [facility] Comment on above: Performed By: #### F E and TIBC, CBC, CMP, TIM #### [address] Lymphocytes/100 WBC (Bld) 25.5 % Normal . [facility] Comment on above: Performed By: #### F E and TIBC, CBC, CMP, TIM #### [address] MCH (RBC) [Entitic mass] 29.5 pg Normal 24.7-34.3 [facility] Comment on above: Performed By: #### F E and TIBC, CBC, CMP, TIM #### [address] MCV (RBC) [Entitic vol] 86.8 fL Normal 80-100 [facility] Comment on above: Performed By: #### F E and TIBC, CBC, CMP, TIM #### [address] Mean Corpuscular HGB Conc 34.0 g/dL Normal 32.0-35.0 [facility] Comment on above: Performed By: #### F E and TIBC, CBC, CMP, TIM #### [address] Monocytes (Bld) [#/Vol] 0.8 10*3/uL Normal 0.0-0.8 [facility] Comment on above: Performed By: #### F E and TIBC, CBC, CMP, TIM #### [address] Monocytes/100 WBC (Bld) 9.1 % Normal . [facility] Comment on above: Performed By: #### F E and TIBC, CBC, CMP, TIM #### [address] Neutrophils (Bld) [#/Vol] 5.3 10*3/uL Normal 1.8-7.7 [facility] Comment on above: Performed By: #### F E and TIBC, CBC, CMP, TIM #### [address] Neutrophils/100 WBC (Bld) 62.1 % Normal . [facility] Comment on above: Performed By: #### F E and TIBC, CBC, CMP, TIM #### [address] NRBC% 0.0 /100{WBC} Normal 0-0.5 [facility] Comment on above: Performed By: #### F E and TIBC, CBC, CMP, TIM #### [address] Platelet mean volume (Bld) [Entitic vol] 9.3 fL Normal 6.3-10.7 [facility] Comment on above: Performed By: #### F E and TIBC, CBC, CMP, TIM #### [address] Platelets (Bld) [#/Vol] 219 10*3/uL Normal 150-450 [facility] Comment on above: Performed By: #### F E and TIBC, CBC, CMP, TIM #### [address] RBC (Bld) [#/Vol] 4.06 10*6/uL Normal 3.60-5.00 [facility] Comment on above: Performed By: #### F E and TIBC, CBC, CMP, TIM #### [address] WBC (Bld) [#/Vol] 8.6 10*3/uL Normal 3.8-11.6 [facility] Comment on above: Performed By: #### F E and TIBC, CBC, CMP, TIM #### [address] Comprehensive Metabolic Pane marleny 07-13-2023 Albumin [Mass/Vol] 4.2 g/dL Normal 3.5-5.7 [facility] Comment on above: Performed By: #### F E and TIBC, CBC, CMP, TIM #### [address] Albumin/Globulin [Mass ratio] 1.9 {ratio} Normal [facility] Comment on above: Performed By: #### F E and TIBC, CBC, CMP, TIM #### [address] ALP [Catalytic activity/Vol] 107 U/L High 34-104 [facility] Comment on above: Performed By: #### F E and TIBC, CBC, CMP, TIM #### [address] ALT [Catalytic activity/Vol] 19 U/L Normal 7-52 [facility] Comment on above: Performed By: #### F E and TIBC, CBC, CMP, TIM #### [address] Anion gap [Moles/Vol] 9.8 mmol/L Normal 6.0-15.0 [facility] Comment on above: Performed By: #### F E and TIBC, CBC, CMP, TIM #### [address] AST [Catalytic activity/Vol] 15 U/L Normal 13-39 [facility] Comment on above: Performed By: #### F E and TIBC, CBC, CMP, TIM #### [address] Bilirubin [Mass/Vol] 0.5 mg/dL Normal 0.3-1.0 [facility] Comment on above: Performed By: #### F E and TIBC, CBC, CMP, TIM #### [address] Calcium [Mass/Vol] 10.7 mg/dL High 8.6-10.3 [facility] Comment on above: Performed By: #### F E and TIBC, CBC, CMP, TIM #### [address] Chloride [Moles/Vol] 101 mmol/L Normal 98-107 [facility] Comment on above: Performed By: #### F E and TIBC, CBC, CMP, TIM #### [address] CO2 [Moles/Vol] 28.9 mmol/L Normal 21.0-31.0 [facility] Comment on above: Performed By: #### F E and TIBC, CBC, CMP, TIM #### [address] Creatinine [Mass/Vol] 1.13 mg/dL Normal 0.60-1.20 [facility] Comment on above: Performed By: #### F E and TIBC, CBC, CMP, TIM #### [address] Creatinine Clr Calc Pharmacy 34.88 Normal [facility] Comment on above: Performed By: #### F E and TIBC, CBC, CMP, TIM #### [facility] [address] [place] [address] [place] GFR/1.73 sq M.predicted MDRD (S/P/Bld) [Vol rate/Area] 50.109 mL/min/{1.73_m2} Normal [facility] Comment on above: Performed By: #### F E and TIBC, CBC, CMP, TIM #### [facility] [address] Globulin (S) [Mass/Vol] 2.2 g/dL [facility] Comment on above: Performed By: #### F E and TIBC, CBC, CMP, TIM #### [facility] [address] Glucose [Mass/Vol] 234 mg/dL High 70-100 [facility] Comment on above: Result Comment: [place] Glucose Reference Range is dependent on time and content of last meal. Glucose of more than 200 mg/dL in a nonstressed, ambulatory subject supports the diagnosis of Diabetes Mellitus. ADA recommended reference range Performed By: #### F E and TIBC, CBC, CMP, TIM #### [facility] [address] Potassium [Moles/Vol] 4.7 mmol/L Normal 3.5-5.1 [facility] Comment on above: Performed By: #### F E and TIBC, CBC, CMP, TIM #### [facility] [address] [place] [address] [place] Protein [Mass/Vol] 6.4 g/dL Normal 6.4-8.9 [facility] Comment on above: Performed By: #### F E and TIBC, CBC, CMP, TIM #### [facility] [address] Sodium [Moles/Vol] 135 mmol/L Low 136-145 [facility] Comment on above: Performed By: #### F E and TIBC, CBC, CMP, TIM #### [facility] [address] Urea nitrogen [Mass/Vol] 23 mg/dL Normal 7-25 [facility] Comment on above: Performed By: #### F E and TIBC, CBC, CMP, TIM #### [facility] [address] [place] [id number] [facility] Creatinine [Mass/volume] in Serum or PlasmaOrdered By: Jarrett Loyola on 07-13-2023 Creatinine [Mass/Vol] 1.13 mg/dL 0.60-1.20 [facility] Eosinophils Auto (Bld) [#/Vo l]Ordered By: Jarrett Loyola on 07-13-2023 Eosinophils (Bld) [#/Vol] 0.2 10*3/uL 0.0-0.45 [facility] Eosinophils/100 WBC Auto (Bl d)Ordered By: Jarrett Loyola on 07-13-2023 Eosinophils/100 WBC (Bld) 2.5 % . [facility] Erythrocyte distribution wid th Auto (RBC) [Ratio]Ordered By: Jarrett Loyola on 07-13-2023 Erythrocyte distribution width (RBC) [Ratio] 13.3 % 11.9-15.3 [facility] Ferritinon 07-13-2023 Ferritin [Mass/Vol] 101.6 ng/mL Normal 11.0-306.8 [facility] Comment on above: Result Comment: PERF ORMED BY: [place] [address] PATHOLOGIST GOLD LEAF PRINTER RACHELLE MACDONALD M.D. Performed By: #### F E and TIBC, CBC, CMP, TIM #### [facility] [address] Ferritin [Mass/volume] in Se rum or PlasmaOrdered By: Jarrett Loyola on 07-13-2023 Ferritin [Mass/Vol] 101.6 ng/mL 11.0-306.8 [facility] Globulin Calc (S) [Mass/Vol] Ordered By: Jarrett Loyola on 07-13-2023 Globulin (S) [Mass/Vol] 2.2 g/dL [facility] Glucose [Mass/volume] in Ser um or PlasmaOrdered By: Jarrett Loyola on 07-13-2023 Glucose [Mass/Vol] 234 mg/dL 70-100 [facility] Comment on above: ADA recommended refe rence [...] from glycated hemoglobin (Bld) [Mass/Vol] 232 mg/dL [facility] Hematocrit Auto (Bld) [Volum e fraction]Ordered By: Jarrett Loyola on 07-13-2023 Hematocrit (Bld) [Volume fraction] 35.2 % 34.0-46.4 [facility] Hemoglobin A1c percentageOrd ered By: Ramin De Paz on 07-13-2023 HbA1c (Bld) [Mass fraction] 9.7 % 4.3-5.6 [facility] Comment on above: Increased risk for d iabetes: 5.7 - 6.4diabetes: >6.4glycemic control for adults with diabetes: <7.0 Hemoglobin [Mass/volume] in BloodOrdered By: Jarrett Loyola on 07-13-2023 Hemoglobin (Bld) [Mass/Vol] 12.0 g/dL 11.8-15.4 [facility] Iron [Mass/volume] in Serum or PlasmaOrdered By: Jarrett Loyola on 07-13-2023 Iron [Mass/Vol] 72 ug/dL 50-212 [facility] Iron and TIBC Profileon 06-20 % Iron Saturation 22.4 % Normal 20-50 [facility] Comment on above: Performed By: #### F E and TIBC, CBC, CMP, TIM #### [facility] [address] [place] [address] [place] Iron [Mass/Vol] 72 ug/dL Normal 50-212 [facility] Comment on above: Performed By: #### F E and TIBC, CBC, CMP, TIM #### [facility] [address] [place] [address] [place] Total Iron Binding Capacity 322 ug/dL Normal 255-450 [facility] Comment on above: Performed By: #### F E and TIBC, CBC, CMP, TIM #### [facility] [address] [place] [address] [place] Transferrin [Mass/Vol] 230 mg/dL Normal 203-362 [facility] Comment on above: Performed By: #### F E and TIBC, CBC, CMP, TIM #### [facility] [address] [place] [address] [place] Iron binding capacity [Mass/ volume] in Serum or PlasmaOrdered By: Jarrett Loyola on 07-13-2023 Iron binding capacity [Mass/Vol] 322 ug/dL 255-450 [facility] Iron saturation [Mass Fracti on] in Serum or PlasmaOrdered By: Jarrett Loyola on 07-13-2023 Iron saturation [Mass fraction] 22.4 % 20-50 [facility] Leukocytes [#/volume] correc laurel for nucleated erythrocytes in Blood by Automated counOrdered By: Jarrett Loyola on 07-13-2023 WBC corrected for nucl RBC Auto (Bld) [#/Vol] 8.6 10*3/uL 3.8-11.6 [facility] Lymphocytes Auto (Bld) [#/Vo l]Ordered By: Jarrett Loyola on 07-13-2023 Lymphocytes (Bld) [#/Vol] 2.2 10*3/uL 1.00-4.8 [facility] Lymphocytes/100 WBC Auto (Bl d)Ordered By: Jarrett Loyola on 07-13-2023 Lymphocytes/100 WBC (Bld) 25.5 % . [facility] MCH Auto (RBC) [Entitic mass ]Ordered By: Jarrett Loyola on 07-13-2023 MCH (RBC) [Entitic mass] 29.5 pg 24.7-34.3 [facility] MCHC Auto (RBC) [Mass/Vol]Or dered By: Jarrett Loyola on 07-13-2023 MCHC (RBC) [Mass/Vol] 34.0 g/dL 32.0-35.0 [facility] MCV Auto (RBC) [Entitic vol] Ordered By: Jarrett Loyola on 07-13-2023 MCV (RBC) [Entitic vol] 86.8 fL 80-100 [facility] Monocytes Auto (Bld) [#/Vol] Ordered By: Jarrett Loyola on 07-13-2023 Monocytes (Bld) [#/Vol] 0.8 10*3/uL 0.0-0.8 [facility] Monocytes/100 WBC Auto (Bld) Ordered By: Jarrett Loyola on 07-13-2023 Monocytes/100 WBC (Bld) 9.1 % . [facility] Neutrophils Auto (Bld) [#/Vo l]Ordered By: Jarrett Loyola on 07-13-2023 Neutrophils (Bld) [#/Vol] 5.3 10*3/uL 1.8-7.7 [facility] Neutrophils/100 WBC Auto (Bl d)Ordered By: Jarrett Loyola on 07-13-2023 Neutrophils/100 WBC (Bld) 62.1 % . [facility] No Panel InformationOrdered By: Jarrett Loyola on 07-13-2023 Estimated GFR (CKD-EPI) 50.109 mL/Min [facility] Creatinine Clearance (Chem 34.88 [facility] Nucleated erythrocytes [Pres ence] in Blood by Automated countOrdered By: Jarrett Loyola on 07-13-2023 Nucleated RBC Auto Ql (Bld) 0.0 /100{WBC} 0-0.5 [facility] Platelet mean volume Auto (B ld) [Entitic vol]Ordered By: Jarrett Loyola on 07-13-2023 Platelet mean volume (Bld) [Entitic vol] 9.3 fL 6.3-10.7 [facility] Platelets Auto (Bld) [#/Vol] Ordered By: Jarrett Loyola on 07-13-2023 Platelets (Bld) [#/Vol] 219 10*3/uL 150-450 [facility] Potassium [Moles/volume] in Serum or PlasmaOrdered By: Jarrett Loyola on 07-13-2023 Potassium [Moles/Vol] 4.7 mmol/L 3.5-5.1 [facility] Protein [Mass/volume] in Ser um or PlasmaOrdered By: Jarrett Loyola on 07-13-2023 Protein [Mass/Vol] 6.4 g/dL 6.4-8.9 [facility] RBC Auto (Bld) [#/Vol]Ordere d By: Jarrett Loyola on 07-13-2023 RBC (Bld) [#/Vol] 4.06 10*6/uL 3.60-5.00 [facility] Serum or plasma albumin/glob ulin mass ratioOrdered By: Jarrett Loyola on 07-13-2023 Albumin/Globulin [Mass ratio] 1.9 {ratio} [facility] Serum or plasma anion gap de terminationOrdered By: Jarrett Loyola on 07-13-2023 Anion gap [Moles/Vol] 9.8 mmol/L 6.0-15.0 [facility] Sodium [Moles/volume] in Ser um or PlasmaOrdered By: Jarrett Loyola on 07-13-2023 Sodium [Moles/Vol] 135 mmol/L 136-145 [facility] Transferrin [Mass/volume] in Serum or PlasmaOrdered By: Jarrett Loyola on 07-13-2023 Transferrin [Mass/Vol] 230 mg/dL 203-362 [facility] Urea nitrogen [Mass/volume] in Serum or PlasmaOrdered By: Jarrett Loyola on 07-13-2023 Urea nitrogen [Mass/Vol] 23 mg/dL 7-25 [facility] WBC Auto (Bld) [#/Vol]Ordere d By: Jarrett Loyola on 07-13-2023 WBC (Bld) [#/Vol] 8.6 10*3/uL 3.8-11.6 [facility] Alanine aminotransferase [En zymatic activity/volume] in Serum or PlasmaOrdered By: Tatiana Christianson on 01-10-2023 ALT [Catalytic activity/Vol] 14 U/L [facility] Albumin [Mass/volume] in Ser um or PlasmaOrdered By: Tatiana Christianson on 01-10-2023 Albumin [Mass/Vol] 3.8 g/dL 2.9-4.4 [facility] Albumin [Mass/volume] in Ser um or Plasma by Bromocresol green (BCG) dye binding methoOrdered By: Tatiana Christianson on 01-10-2023 Albumin BCG dye [Mass/Vol] 4.6 g/dL 3.5-5.7 [facility] Alkaline phosphatase [Enzyma tic activity/volume] in Serum or PlasmaOrdered By: Tatiana Christianson on 01-10-2023 ALP [Catalytic activity/Vol] 86 U/L 34-104 [facility] Aspartate aminotransferase [ Enzymatic activity/volume] in Serum or PlasmaOrdered By: Tatiana Christianson on 01-10-2023 AST [Catalytic activity/Vol] 14 U/L 13-39 [facility] Basophils Auto (Bld) [#/Vol] Ordered By: Tatiana Christianson on 01-10-2023 Basophils (Bld) [#/Vol] 0.1 10*3/uL 0.0-0.2 [facility] Basophils/100 WBC Auto (Bld) Ordered By: Tatiana Christianson on 01-10-2023 Basophils/100 WBC (Bld) 0.7 % . [facility] Bilirubin.total [Mass/volume ] in Serum or PlasmaOrdered By: Tatiana Christianson on 01-10-2023 Bilirubin [Mass/Vol] 0.4 mg/dL 0.3-1.0 [facility] Calcium [Mass/volume] in Ser um or PlasmaOrdered By: Tatiana Christianson on 01-10-2023 Calcium [Mass/Vol] 10.6 mg/dL 8.6-10.3 [facility] Carbon dioxide, total [Moles /volume] in Serum or PlasmaOrdered By: Tatiana Christianson on 01-10-2023 CO2 [Moles/Vol] 28.9 mmol/L 21.0-31.0 [facility] Chloride [Moles/volume] in S valdo or PlasmaOrdered By: Tatiana Christianson on 01-10-2023 Chloride [Moles/Vol] 103 mmol/L 98-107 [facility] Complete Blood Count Auto Di ffon 07-25-2023 Basophils (Bld) [#/Vol] 0.1 10*3/uL Normal 0.0-0.2 [facility] Comment on above: Result Comment: PERF ORMED BY: [place] [address] PATHOLOGIST G[employer] LEAF [employer]INTER RACHELLE MACDONALD M.D. Performed By: #### S PE, KAPPA, ABDELRAHMAN SERUM #### [facility] , #### TIM, CBC, CMP, FE and TIBC #### [address] Basophils/100 WBC (Bld) 0.7 % Normal . [facility] Comment on above: Performed By: #### S PE, KAPPA, ABDELRAHMAN SERUM #### [facility] , #### TIM, CBC, CMP, FE and TIBC #### [place] [address] [place] Eosinophils (Bld) [#/Vol] 0.3 10*3/uL Normal 0.0-0.45 [facility] Comment on above: Performed By: #### S PE, KAPPA, ABDELRAHMAN SERUM #### [facility] , #### TIM, CBC, CMP, FE and TIBC #### [address] Eosinophils/100 WBC (Bld) 3.1 % Normal . [facility] Comment on above: Performed By: #### S PE, KAPPA, ABDELRAHMAN SERUM #### [facility] , #### TIM, CBC, CMP, FE and TIBC #### [address] Erythrocyte distribution width (RBC) [Ratio] 13.7 % Normal 11.9-15.3 [facility] Comment on above: Performed By: #### S PE, KAPPA, ABDELRAHMAN SERUM #### [facility] , #### TIM, CBC, CMP, FE and TIBC #### [place] [address] [place] Hematocrit (Bld) [Volume fraction] 35.4 % Normal 34.0-46.4 [facility] Comment on above: Performed By: #### S PE, KAPPA, ABDELRAHMAN SERUM #### [facility] , #### TIM, CBC, CMP, FE and TIBC #### [address] Hemoglobin (Bld) [Mass/Vol] 11.7 g/dL Low 11.8-15.4 [facility] Comment on above: Performed By: #### S PE, KAPPA, ABDELRAHMAN SERUM #### [facility] , #### TIM, CBC, CMP, FE and TIBC #### [address] Lymphocytes (Bld) [#/Vol] 2.2 10*3/uL Normal 1.00-4.8 [facility] Comment on above: Performed By: #### S PE, KAPPA, ABDELRAHMAN SERUM #### [facility] , #### TIM, CBC, CMP, FE and TIBC #### [address] Lymphocytes/100 WBC (Bld) 25.3 % Normal . [facility] Comment on above: Performed By: #### S PE, KAPPA, ABDELRAHMAN SERUM #### [facility] , #### TIM, CBC, CMP, FE and TIBC #### [address] MCH (RBC) [Entitic mass] 28.6 pg Normal 24.7-34.3 [facility] Comment on above: Performed By: #### S PE, KAPPA, ABDELRAHMAN SERUM #### [facility] , #### TIM, CBC, CMP, FE and TIBC #### [address] MCV (RBC) [Entitic vol] 86.3 fL Normal 80-100 [facility] Comment on above: Performed By: #### S PE, KAPPA, ABDELRAHMAN SERUM #### [facility] , #### TIM, CBC, CMP, FE and TIBC #### [address] Mean Corpuscular HGB Conc 33.1 g/dL Normal 32.0-35.0 [facility] Comment on above: Performed By: #### S PE, KAPPA, ABDELRAHMAN SERUM #### [facility] , #### TIM, CBC, CMP, FE and TIBC #### [address] Monocytes (Bld) [#/Vol] 0.7 10*3/uL Normal 0.0-0.8 [facility] Comment on above: Performed By: #### S PE, KAPPA, ABDELRAHMAN SERUM #### [facility] , #### TIM, CBC, CMP, FE and TIBC #### [address] Monocytes/100 WBC (Bld) 8.6 % Normal . [facility] Comment on above: Performed By: #### S PE, KAPPA, ABDELRAHMAN SERUM #### [facility] , #### TIM, CBC, CMP, FE and TIBC #### [address] Neutrophils (Bld) [#/Vol] 5.3 10*3/uL Normal 1.8-7.7 [facility] Comment on above: Performed By: #### S PE, KAPPA, ABDELRAHMAN SERUM #### [facility] , #### TIM, CBC, CMP, FE and TIBC #### [address] Neutrophils/100 WBC (Bld) 62.3 % Normal . [facility] Comment on above: Performed By: #### S PE, KAPPA, ABDELRAHMAN SERUM #### [facility] , #### TIM, CBC, CMP, FE and TIBC #### [address] NRBC% 0.1 /100{WBC} Normal 0-0.5 [facility] Comment on above: Performed By: #### S PE, KAPPA, ABDELRAHMAN SERUM #### [facility] , #### TIM, CBC, CMP, FE and TIBC #### [address] Platelet mean volume (Bld) [Entitic vol] 9.6 fL Normal 6.3-10.7 [facility] Comment on above: Performed By: #### S PE, KAPPA, ABDELRAHMAN SERUM #### [facility] , #### TIM, CBC, CMP, FE and TIBC #### [address] Platelets (Bld) [#/Vol] 231 10*3/uL Normal 150-450 [facility] Comment on above: Performed By: #### S PE, KAPPA, ABDELRAHMAN SERUM #### [facility] , #### TIM, CBC, CMP, FE and TIBC #### [address] RBC (Bld) [#/Vol] 4.11 10*6/uL Normal 3.60-5.00 [facility] Comment on above: Performed By: #### S PE, KAPPA, ABDELRAHMAN SERUM #### [facility] , #### TIM, CBC, CMP, FE and TIBC #### [address] WBC (Bld) [#/Vol] 8.5 10*3/uL Normal 3.8-11.6 [facility] Comment on above: Performed By: #### S PE, KAPPA, ABDELRAHMAN SERUM #### [facility] , #### TIM, CBC, CMP, FE and TIBC #### [place] [id number] Comprehensive Metabolic Pane marleny 01-10-2023 Albumin [Mass/Vol] 4.6 g/dL Normal 3.5-5.7 [facility] Comment on above: Performed By: #### S PE, KAPPA, ABDELRAHMAN SERUM ####[facility] ,#### TIM, CBC, CMP, FE and TIBC ####[address] Albumin/Globulin [Mass ratio] 2.0 {ratio} Normal [facility] Comment on above: Performed By: #### S PE, KAPPA, ABDELRAHMAN SERUM ####[facility] ,#### TIM, CBC, CMP, FE and TIBC ####[address] ALP [Catalytic activity/Vol] 86 U/L Normal 34-104 [facility] Comment on above: Performed By: #### S PE, KAPPA, ABDELRAHMAN SERUM ####[facility] ,#### TIM, CBC, CMP, FE and TIBC ####[address] ALT [Catalytic activity/Vol] 14 U/L Normal 7-52 [facility] Comment on above: Performed By: #### S PE, KAPPA, ABDELRAHMAN SERUM ####[facility] ,#### TIM, CBC, CMP, FE and TIBC ####[address] Anion gap [Moles/Vol] 10.9 mmol/L Normal 6.0-15.0 [facility] Comment on above: Performed By: #### S PE, KAPPA, ABDELRAHMAN SERUM ####[facility] ,#### TIM, CBC, CMP, FE and TIBC ####[address] AST [Catalytic activity/Vol] 14 U/L Normal 13-39 [facility] Comment on above: Performed By: #### S PE, KAPPA, ABDELRAHMAN SERUM ####[facility] ,#### TIM, CBC, CMP, FE and TIBC ####[address] Bilirubin [Mass/Vol] 0.4 mg/dL Normal 0.3-1.0 [facility] Comment on above: Performed By: #### S PE, KAPPA, ABDELRAHMAN SERUM ####[facility] ,#### TIM, CBC, CMP, FE and TIBC ####[address] Calcium [Mass/Vol] 10.6 mg/dL High 8.6-10.3 [facility] Comment on above: Performed By: #### S PE, KAPPA, ABDELRAHMAN SERUM ####[facility] ,#### TIM, CBC, CMP, FE and TIBC ####[address] Chloride [Moles/Vol] 103 mmol/L Normal 98-107 [facility] Comment on above: Performed By: #### S PE, KAPPA, ABDELRAHMAN SERUM ####[facility] ,#### TIM, CBC, CMP, FE and TIBC ####[address] CO2 [Moles/Vol] 28.9 mmol/L Normal 21.0-31.0 [facility] Comment on above: Performed By: #### S PE, KAPPA, ABDELRAHMAN SERUM ####[facility] ,#### TIM, CBC, CMP, FE and TIBC ####[address] Creatinine [Mass/Vol] 1.09 mg/dL Normal 0.60-1.20 [facility] Comment on above: Performed By: #### S PE, KAPPA, ABDELRAHMAN SERUM ####[facility] ,#### TIM, CBC, CMP, FE and TIBC ####[address] Creatinine Clr Calc Pharmacy 35.85 [facility] Comment on above: Performed By: #### S PE, KAPPA, ABDELRAHMAN SERUM ####[facility] ,#### TIM, CBC, CMP, FE and TIBC ####[address] GFR/1.73 sq M.predicted MDRD (S/P/Bld) [Vol rate/Area] 52.323 mL/min/{1.73_m2} [facility] Comment on above: Performed By: #### S PE, KAPPA, ABDELRAHMAN SERUM ####[facility] ,#### TIM, CBC, CMP, FE and TIBC ####[address] Globulin (S) [Mass/Vol] 2.3 g/dL [facility] Comment on above: Performed By: #### S PE, KAPPA, ABDELRAHMAN SERUM ####[facility] ,#### TIM, CBC, CMP, FE and TIBC ####[address] Glucose [Mass/Vol] 170 mg/dL High 70-100 [facility] Comment on above: Result Comment: [place] Glucose Reference Range is dependent on time and content of last meal. Glucose of more than 200 mg/dL in a nonstressed, ambulatory subject supports the diagnosis of Diabetes Mellitus. ADA recommended reference range Performed By: #### S PE, KAPPA, ABDELRAHMAN SERUM ####[facility] ,#### TIM, CBC, CMP, FE and TIBC ####[address] Potassium [Moles/Vol] 4.8 mmol/L Normal 3.5-5.1 [facility] Comment on above: Performed By: #### S PE, KAPPA, ABDELRAHMAN SERUM ####[facility] ,#### TIM, CBC, CMP, FE and TIBC ####[address] Protein [Mass/Vol] 6.9 g/dL Normal 6.0-8.5 [facility] Comment on above: Performed By: #### S PE, KAPPA, ABDELRAHMAN SERUM ####[facility] ,#### TIM, CBC, CMP, FE and TIBC ####[address] Sodium [Moles/Vol] 138 mmol/L Normal 136-145 [facility] Comment on above: Performed By: #### S PE, KAPPA, ABDELRAHMAN SERUM ####[facility] ,#### TIM, CBC, CMP, FE and TIBC ####[address] Urea nitrogen [Mass/Vol] 20 mg/dL Normal 7-25 [facility] Comment on above: Performed By: #### S PE, KAPPA, ABDELRAHMAN SERUM ####[facility] ,#### TIM, CBC, CMP, FE and TIBC ####[address] Creatinine [Mass/volume] in Serum or PlasmaOrdered By: Tatiana Christianson on 01-10-2023 Creatinine [Mass/Vol] 1.09 mg/dL 0.60-1.20 [facility] Eosinophils Auto (Bld) [#/Vo l]Ordered By: Tatiana Christianson on 01-10-2023 Eosinophils (Bld) [#/Vol] 0.3 10*3/uL 0.0-0.45 [facility] Eosinophils/100 WBC Auto (Bl d)Ordered By: Tatiana Christianson on 01-10-2023 Eosinophils/100 WBC (Bld) 3.1 % . [facility] Erythrocyte distribution wid th Auto (RBC) [Ratio]Ordered By: Tatiana Pricechantami on 01-10-2023 Erythrocyte distribution width (RBC) [Ratio] 13.7 % 11.9-15.3 [facility] Ferritinon 01-10-2023 Ferritin [Mass/Vol] 23.3 ng/mL Normal 11.0-306.8 [facility] Comment on above: Result Comment: PERF ORMED BY: [facility] [address] [place] [address] PATHOLOGIST [employer]INTER RACHELLE MACDONALD M.D. Performed By: #### S PE, KAPPA, ABDELRAHMAN SERUM ####[facility] ,#### TIM, CBC, CMP, FE and TIBC ####[address] Ferritin [Mass/volume] in Se rum or PlasmaOrdered By: Tatiana Pruitttami on 01-10-2023 Ferritin [Mass/Vol] 23.3 ng/mL 11.0-306.8 [facility] Free K+L LT Chains, Qn, Son 01-10-2023 Free Alexander Light Chains, S 42.6 mg/L High 3.3-19.4 [facility] Comment on above: Performed By: #### S PE, KAPPA, ABDELRAHMAN SERUM ####[facility] ,#### TIM, CBC, CMP, FE and TIBC ####[address] Free Lambda Light Chains, S 19.4 mg/L Normal 5.7-26.3 [facility] Comment on above: Performed By: #### S PE, KAPPA, ABDELRAHMAN SERUM ####[facility] ,#### TIM, CBC, CMP, FE and TIBC ####[place] [id number] [facility] Alexander/Lambda Ratio, S 2.20 High 0.26-1.65 [facility] Comment on above: Result Comment: Perf ormed at: - [facility] [address] [place], [place] [id number] Tractor Operator: Rio Huber PhD, Phone: [phone] PERFORMED BY: [facility] [address] [place] [address] PATHOLOGIST G[employer] LEAF PRINTER RACHELLE MACDONALD M.D. Performed By: #### S PE, KAPPA, ABDELRAHMAN SERUM ####[facility] ,#### TIM, CBC, CMP, FE and TIBC ####[facility] [id number] Globulin Calc (S) [Mass/Vol] Ordered By: Tatiana Christianson on 01-10-2023 Globulin (S) [Mass/Vol] 2.3 g/dL [facility] Glucose [Mass/volume] in Ser um or PlasmaOrdered By: Tatiana Christianson on 01-10-2023 Glucose [Mass/Vol] 170 mg/dL 70-100 [facility] Comment on above: ADA recommended refe rence rangeRandom Glucose Reference Range is dependent on time and content of last meal. Glucose of more than 200 mg/dL in a nonstressed, ambulatory subject supports the diagnosis of Diabetes Mellitus. Hematocrit Auto (Bld) [Volum e fraction]Ordered By: Tatiana Christianson on 01-10-2023 Hematocrit (Bld) [Volume fraction] 35.4 % 34.0-46.4 [facility] Hemoglobin [Mass/volume] in BloodOrdered By: Tatiana Christianson on 01-10-2023 Hemoglobin (Bld) [Mass/Vol] 11.7 g/dL 11.8-15.4 [facility] IgA [Mass/volume] in Serum o r PlasmaOrdered By: Tatiana Christianson on 01-10-2023 IgA [Mass/Vol] 60 mg/dL 64-422 [facility] IgG [Mass/volume] in Serum o r PlasmaOrdered By: Tatiana Christianson on 01-10-2023 IgG [Mass/Vol] 826 mg/dL [phone] [facility] IgM [Mass/volume] in Serum o r PlasmaOrdered By: Tatiana Christianson on 01-10-2023 IgM [Mass/Vol] 61 mg/dL -217 [facility] Immunofixation,Serumon 01-10 Immunofixation, Serum Comment: Normal . [facility] Comment on above: Result Comment: Pres ence of monoclonal protein is unclear at this time. Suggest repeat in 3 to 6 months if clinically indicated. Performed By: #### S PE, KAPPA, ABDELRAHMAN SERUM ####[facility] ,#### TIM, CBC, CMP, FE and TIBC ####[address] [address] [facility] Immunoglobulin A, Serum 60 mg/dL Low 64-422 [facility] Comment on above: Performed By: #### S PE, KAPPA, ABDELRAHMAN SERUM ####[facility] ,#### TIM, CBC, CMP, FE and TIBC ####[address] [address] [facility] Immunoglobulin G 826 mg/dL Normal [phone] [facility] Comment on above: Performed By: #### S PE, KAPPA, ABDELRAHMAN SERUM ####[facility] ,#### TIM, CBC, CMP, FE and TIBC ####[address] [address] [facility] Immunoglobulin M, Serum 61 mg/dL Normal 26-217 [facility] Comment on above: Performed By: #### S PE, KAPPA, ABDELRAHMAN SERUM ####[facility] ,#### TIM, CBC, CMP, FE and TIBC ####[place] [id number] [facility] Immunoglobulin light chains. kappa.free [Mass/volume] in SerumOrdered By: Tatiana Christianson on 01-10-2023 Immunoglobulin light chains.kappa.free (S) [Mass/Vol] 42.6 mg/L 3.3-19.4 [facility] Immunoglobulin light chains. kappa.free/Immunoglobulin light chains.lambda.free [MassOrdered By: Tatiana Christianson on 01-10-2023 Immunoglobulin light chains.kappa.free/Immu noglobulin light chains.lambda.free (S) [Mass ratio] 2.20 0.26-1.65 [facility] Comment on above: Performed at: - [address] [id number] Director: Rio Huber PhD, Phone: [phone] Immunoglobulin light chains. lambda.free [Mass/volume] in Serum or PlasmaOrdered By: Tatiana Christianson on 01-10-2023 Immunoglobulin light chains.lambda.free [Mass/Vol] 19.4 mg/L 5.7-26.3 [facility] Iron [Mass/volume] in Serum or PlasmaOrdered By: Tatiana Christianson on 01-10-2023 Iron [Mass/Vol] 63 ug/dL 50-212 [facility] Iron and TIBC Profileon 12-18 % Iron Saturation 17.6 % Low 20-50 [facility] Comment on above: Performed By: #### S PE, KAPPA, ABDELRAHMAN SERUM ####[facility] ,#### TIM, CBC, CMP, FE and TIBC ####[address] Iron [Mass/Vol] 63 ug/dL Normal 50-212 [facility] Comment on above: Performed By: #### S PE, KAPPA, ABDELRAHMAN SERUM ####[facility] ,#### TIM, CBC, CMP, FE and TIBC ####[address] [address] [facility] Total Iron Binding Capacity 357 ug/dL Normal 255-450 [facility] Comment on above: Performed By: #### S PE, KAPPA, ABDELRAHMAN SERUM ####[facility] ,#### TIM, CBC, CMP, FE and TIBC ####[place] [id number] [facility] Transferrin [Mass/Vol] 255 mg/dL Normal 203-362 [facility] Comment on above: Performed By: #### S PE, KAPPA, ABDELRAHMAN SERUM ####[facility] ,#### TIM, CBC, CMP, FE and TIBC ####[facility] [id number] [place] [address] [facility] Iron binding capacity [Mass/ volume] in Serum or PlasmaOrdered By: Tatiana Christianson on 01-10-2023 Iron binding capacity [Mass/Vol] 357 ug/dL 255-450 [facility] Iron saturation [Mass Fracti on] in Serum or PlasmaOrdered By: Tatiana Christianson on 01-10-2023 Iron saturation [Mass fraction] 17.6 % 20-50 [facility] Leukocytes [#/volume] correc laurel for nucleated erythrocytes in Blood by Automated counOrdered By: Tatiana Christianson on 01-10-2023 WBC corrected for nucl RBC Auto (Bld) [#/Vol] 8.5 10*3/uL 3.8-11.6 [facility] Lymphocytes Auto (Bld) [#/Vo l]Ordered By: Tatiana Christianson on 01-10-2023 Lymphocytes (Bld) [#/Vol] 2.2 10*3/uL 1.00-4.8 [facility] Lymphocytes/100 WBC Auto (Bl d)Ordered By: Tatiana Christianson on 01-10-2023 Lymphocytes/100 WBC (Bld) 25.3 % . [facility] MCH Auto (RBC) [Entitic mass ]Ordered By: Tatiana Christianson on 01-10-2023 MCH (RBC) [Entitic mass] 28.6 pg 24.7-34.3 [facility] MCHC Auto (RBC) [Mass/Vol]Or dered By: Tatiana Christianson on 01-10-2023 MCHC (RBC) [Mass/Vol] 33.1 g/dL 32.0-35.0 [facility] MCV Auto (RBC) [Entitic vol] Ordered By: Tatiana Christianson on 01-10-2023 MCV (RBC) [Entitic vol] 86.3 fL 80-100 [facility] Monocytes Auto (Bld) [#/Vol] Ordered By: Tatiana Christianson on 01-10-2023 Monocytes (Bld) [#/Vol] 0.7 10*3/uL 0.0-0.8 [facility] Monocytes/100 WBC Auto (Bld) Ordered By: Tatiana Christianson on 01-10-2023 Monocytes/100 WBC (Bld) 8.6 % . [facility] Neutrophils Auto (Bld) [#/Vo l]Ordered By: Tatiana Christianson on 01-10-2023 Neutrophils (Bld) [#/Vol] 5.3 10*3/uL 1.8-7.7 [facility] Neutrophils/100 WBC Auto (Bl d)Ordered By: Tatiana Christianson on 01-10-2023 Neutrophils/100 WBC (Bld) 62.3 % . [facility] No Panel InformationOrdered By: Tatiana Christianson on 01-10-2023 Estimated GFR (CKD-EPI) 52.323 mL/Min [facility] Creatinine Clearance (Chem 35.85 [facility] Protein Electrophoresis M-Gabriel Comment: g/dL Not Observed [facility] Comment on above: SPE shows an asymmet rical gamma. Protein Electrophoresis Note See comment . [facility] Comment on above: Protein electrophore sis scan will follow via computer,mail, or director workers compensation delivery. Serum Immunofixation Comment: . [facility] Comment on above: Presence of monoclon al protein is unclear at this time. Suggestrepeat in 3 to 6 months if clinically indicated. Nucleated erythrocytes [Pres ence] in Blood by Automated countOrdered By: Tatiana Christianson on 01-10-2023 Nucleated RBC Auto Ql (Bld) 0.1 /100{WBC} 0-0.5 [facility] Platelet mean volume Auto (B ld) [Entitic vol]Ordered By: Tatiana Christianson on 01-10-2023 Platelet mean volume (Bld) [Entitic vol] 9.6 fL 6.3-10.7 [facility] Platelets Auto (Bld) [#/Vol] Ordered By: Tatiana Christianson on 01-10-2023 Platelets (Bld) [#/Vol] 231 10*3/uL 150-450 [facility] Potassium [Moles/volume] in Serum or PlasmaOrdered By: Tatiana Christianson on 01-10-2023 Potassium [Moles/Vol] 4.8 mmol/L 3.5-5.1 [facility] Protein Electrophoresis, Ser umon 01-10-2023 Albumin [Mass/Vol] 3.8 g/dL Normal 2.9-4.4 [facility] Comment on above: Performed By: #### S PE, KAPPA, ABDELRAHMAN SERUM ####[facility] ,#### TIM, CBC, CMP, FE and TIBC ####[address] Albumin/Globulin [Mass ratio] 1.2 {ratio} Normal 0.7-1.7 [facility] Comment on above: Performed By: #### S PE, KAPPA, ABDELRAHMAN SERUM ####[facility] ,#### TIM, CBC, CMP, FE and TIBC ####[address] Mrhdv-6-Afcizymj 0.3 g/dL Normal 0.0-0.4 [facility] Comment on above: Performed By: #### S PE, KAPPA, ABDELRAHMAN SERUM ####[facility] ,#### TIM, CBC, CMP, FE and TIBC ####[address] Oypyb-9-Fiaawjjy 1.1 g/dL High 0.4-1.0 [facility] Comment on above: Performed By: #### S PE, KAPPA, ABDELRAHMAN SERUM ####[facility] ,#### TIM, CBC, CMP, FE and TIBC ####[place] [address] [place] Beta Globulin 0.9 g/dL Normal 0.7-1.3 [facility] Comment on above: Performed By: #### S PE, KAPPA, ABDELRAHMAN SERUM ####[facility] ,#### TIM, CBC, CMP, FE and TIBC ####[address] Gamma Globulin 0.9 g/dL Normal 0.4-1.8 [facility] Comment on above: Performed By: #### S PE, KAPPA, ABDELRAHMAN SERUM ####[facility] ,#### TIM, CBC, CMP, FE and TIBC ####[address] Globulin (S) [Mass/Vol] 3.1 g/dL Normal 2.2-3.9 [facility] Comment on above: Performed By: #### S PE, KAPPA, ABDELRAHMAN SERUM ####[facility] ,#### TIM, CBC, CMP, FE and TIBC ####[address] M-Gabriel Comment: Normal Not Observed [facility] Comment on above: Result Comment: SPE shows an asymmetrical gamma. Performed By: #### S PE, KAPPA, ABDELRAHMAN SERUM ####[facility] ,#### TIM, CBC, CMP, FE and TIBC ####[address] SPE-Note Normal . [facility] Comment on above: Result Comment: Prot ein electrophoresis scan will follow via computer, mail, or director workers compensation delivery. Performed By: #### S PE, KAPPA, ABDELRAHMAN SERUM ####[facility] ,#### TIM, CBC, CMP, FE and TIBC ####[address] Protein [Mass/volume] in Ser um or PlasmaOrdered By: Tatiana Christianson on 01-10-2023 Protein [Mass/Vol] 6.9 g/dL 6.0-8.5 [facility] RBC Auto (Bld) [#/Vol]Ordere d By: Tatiana Christianson on 01-10-2023 RBC (Bld) [#/Vol] 4.11 10*6/uL 3.60-5.00 [facility] Serum globulin measurement ( mass/volume)Ordered By: Tatiana Christianson on 01-10-2023 Globulin (S) [Mass/Vol] 3.1 g/dL 2.2-3.9 [facility] Serum or plasma albumin/glob ulin mass ratioOrdered By: Tatiana Christianson on 01-10-2023 Albumin/Globulin [Mass ratio] 2.0 {ratio} [facility] Albumin/Globulin [Mass ratio] 1.2 {ratio} 0.7-1.7 [facility] Serum or plasma alpha 1 glob ulin measurement by electrophoresis (mass/volume)Ordered By: Tatiana Christianson on 01-10-2023 Alpha 1 globulin Elph [Mass/Vol] 0.3 g/dL 0.0-0.4 [facility] Serum or plasma alpha 2 glob ulin measurement by electrophoresis (mass/volume)Ordered By: Tatiana Christianson on 01-10-2023 Alpha 2 globulin Elph [Mass/Vol] 1.1 g/dL 0.4-1.0 [facility] Serum or plasma anion gap de terminationOrdered By: Tatiana Christianson on 01-10-2023 Anion gap [Moles/Vol] 10.9 mmol/L 6.0-15.0 [facility] Serum or plasma beta globuli n measurement by electrophoresis (mass/volume)Ordered By: Tatiana Christianson on 01-10-2023 Beta globulin Elph [Mass/Vol] 0.9 g/dL 0.7-1.3 [facility] Serum or plasma gamma globul in measurement by electrophoresis (mass/volume)Ordered By: Tatiana Christianson on 01-10-2023 Gamma globulin Elph [Mass/Vol] 0.9 g/dL 0.4-1.8 [facility] Sodium [Moles/volume] in Ser um or PlasmaOrdered By: Tatiana Christianson on 01-10-2023 Sodium [Moles/Vol] 138 mmol/L 136-145 [facility] Transferrin [Mass/volume] in Serum or PlasmaOrdered By: Tatiana Christianson on 01-10-2023 Transferrin [Mass/Vol] 255 mg/dL 203-362 [facility] Urea nitrogen [Mass/volume] in Serum or PlasmaOrdered By: Tatiana Christianson on 01-10-2023 Urea nitrogen [Mass/Vol] 20 mg/dL 7-25 [facility] WBC Auto (Bld) [#/Vol]Ordere d By: Tatiana Christianson on 01-10-2023 WBC (Bld) [#/Vol] 8.5 10*3/uL 3.8-11.6 [facility] Albumin [Mass/volume] in Ser um or PlasmaOrdered By: Jarrett Loyola on 07-11-2022 Albumin [Mass/Vol] 4.3 g/dL 3.2-5.5 [facility] Basophils Auto (Bld) [#/Vol] Ordered By: Jarrett Loyola on 07-11-2022 Basophils (Bld) [#/Vol] 0.1 10*3/uL 0.0-0.2 [facility] Basophils/100 WBC Auto (Bld) Ordered By: Jarrett Loyola on 07-11-2022 Basophils/100 WBC (Bld) 0.7 % . [facility] CT biopsyOrdered By: Jarrett Loyola on 07-11-2022 Transferrin [Mass/Vol] 256 mg/dL 180-380 [facility] Creatinine and Glomerular fi ltration rate.predicted panel (S/P/Bld)Ordered By: Jarrett Loyola on 07-11-2022 Creatinine [Mass/Vol] 1.30 mg/dL 0.44-1.03 [facility] Eosinophils Auto (Bld) [#/Vo l]Ordered By: Jarrett Loyola on 07-11-2022 Eosinophils (Bld) [#/Vol] 0.3 10*3/uL 0.0-0.45 [facility] Eosinophils/100 WBC Auto (Bl d)Ordered By: Jarrett Loyola on 07-11-2022 Eosinophils/100 WBC (Bld) 3.1 % . [facility] Erythrocyte distribution wid th Auto (RBC) [Ratio]Ordered By: Jarrett Loyola on 07-11-2022 Erythrocyte distribution width (RBC) [Ratio] 13.7 % 11.9-15.3 [facility] Estimated glomerular filtrat ion rate (GFR) non- AmericanOrdered By: Jarrett Loyola on 07-11-2022 GFR/1.73 sq M.predicted among non-blacks MDRD (S/P/Bld) [Vol rate/Area] 40 mL/Min [facility] Ferritin [Mass/volume] in Se rum or PlasmaOrdered By: Jarrett Loyola on 07-11-2022 Ferritin [Mass/Vol] 53.8 ng/mL 11-306.8 [facility] Globulin Calc (S) [Mass/Vol] Ordered By: Jarrett Loyola on 07-11-2022 Globulin (S) [Mass/Vol] 2.5 g/dL [facility] Glucose mean value [Mass/vol ume] in Blood Estimated from glycated hemoglobinOrdered By: Ramin De Paz on 07-11-2022 Average glucose Estimated from glycated hemoglobin (Bld) [Mass/Vol] 171 mg/dL [facility] Hematocrit Auto (Bld) [Volum e fraction]Ordered By: Jarrett Loyola on 07-11-2022 Hematocrit (Bld) [Volume fraction] 38.0 % 34.0-46.4 [facility] Hemoglobin A1c percentageOrd ered By: Ramin De Paz on 07-11-2022 HbA1c (Bld) [Mass fraction] 7.6 % 4.3-5.6 [facility] Comment on above: Increased risk for d iabetes: 5.7 - 6.4diabetes: >6.4glycemic control for adults with diabetes: <7.0 Hemoglobin [Mass/volume] in BloodOrdered By: Jarrett Loyola on 07-11-2022 Hemoglobin (Bld) [Mass/Vol] 12.4 g/dL 11.8-15.4 [facility] Iron [Mass/volume] in Serum or PlasmaOrdered By: Jarrett Loyola on 07-11-2022 Iron [Mass/Vol] 69 ug/dL 40-150 [facility] Iron binding capacity [Mass/ volume] in Serum or PlasmaOrdered By: Jarrett Loyola on 07-11-2022 Iron binding capacity [Mass/Vol] 358 ug/dL 255-450 [facility] Iron saturation [Mass Fracti on] in Serum or PlasmaOrdered By: Jarrett Loyola on 07-11-2022 Iron saturation [Mass fraction] 19.3 % 20-50 [facility] Leukocytes [#/volume] correc laurel for nucleated erythrocytes in Blood by Automated counOrdered By: Jarrett Loyola on 07-11-2022 WBC corrected for nucl RBC Auto (Bld) [#/Vol] 9.6 10*3/uL 3.8-11.6 [facility] Lymphocytes Auto (Bld) [#/Vo l]Ordered By: Jarrett Loyola on 07-11-2022 Lymphocytes (Bld) [#/Vol] 2.6 10*3/uL 1.00-4.8 [facility] Lymphocytes/100 WBC Auto (Bl d)Ordered By: Jarrett Loyola on 07-11-2022 Lymphocytes/100 WBC (Bld) 27.7 % . [facility] MCH Auto (RBC) [Entitic mass ]Ordered By: Jarrett Loyola on 07-11-2022 MCH (RBC) [Entitic mass] 29.1 pg 24.7-34.3 [facility] MCHC Auto (RBC) [Mass/Vol]Or dered By: Jarrett Loyola on 07-11-2022 MCHC (RBC) [Mass/Vol] 32.7 g/dL 32.0-35.0 [facility] MCV Auto (RBC) [Entitic vol] Ordered By: Jarrett Loyola on 07-11-2022 MCV (RBC) [Entitic vol] 88.8 fL 80-100 [facility] Monocytes Auto (Bld) [#/Vol] Ordered By: Jarrett Loyola on 07-11-2022 Monocytes (Bld) [#/Vol] 0.8 10*3/uL 0.0-0.8 [facility] Monocytes/100 WBC Auto (Bld) Ordered By: Jarrett Loyola on 07-11-2022 Monocytes/100 WBC (Bld) 8.0 % . [facility] Neutrophils Auto (Bld) [#/Vo l]Ordered By: Jarrett Loyola on 07-11-2022 Neutrophils (Bld) [#/Vol] 5.8 10*3/uL 1.8-7.7 [facility] Neutrophils/100 WBC Auto (Bl d)Ordered By: Jarrett Loyola on 07-11-2022 Neutrophils/100 WBC (Bld) 60.5 % . [facility] No Panel InformationOrdered By: Jarrett Loyola on 07-11-2022 Estimated GFR () 48 mL/Min [facility] Comment on above: GFR estimated refere nce range: According to KDOQI guidelines, <60 ml/min/1.73m2 is sufficient to diagnose a patient with chronic kidney disease. Pharmacy Creatinine Clearance (Chem 31.24 [facility] Nucleated erythrocytes [Pres ence] in Blood by Automated countOrdered By: Jarrett Loyola on 07-11-2022 Nucleated RBC Auto Ql (Bld) 0.1 /100{WBC} 0-0.5 [facility] Platelet mean volume Auto (B ld) [Entitic vol]Ordered By: Jarrett Loyola on 07-11-2022 Platelet mean volume (Bld) [Entitic vol] 9.7 fL 6.3-10.7 [facility] Platelets Auto (Bld) [#/Vol] Ordered By: Jarrett Loyola on 07-11-2022 Platelets (Bld) [#/Vol] 259 10*3/uL 150-450 [facility] Protein [Mass/volume] in Ser um or PlasmaOrdered By: Jarrett Loyola on 07-11-2022 Protein [Mass/Vol] 6.8 g/dL 6.1-7.9 [facility] RBC Auto (Bld) [#/Vol]Ordere d By: Jarrett Loyola on 07-11-2022 RBC (Bld) [#/Vol] 4.27 10*6/uL 3.60-5.00 [facility] Serum or plasma alanine [place] otransferase measurement without P-5'-P (enzymatic activiOrdered By: Jarrett Loyola on 07-11-2022 ALT No additional P-5'-P [Catalytic activity/Vol] 21 U/L 10-60 [facility] Serum or plasma albumin/glob ulin mass ratioOrdered By: Jarrett Loyola on 07-11-2022 Albumin/Globulin [Mass ratio] 1.7 {ratio} [facility] Serum or plasma alkaline jesus sphatase measurement (enzymatic activity/volume)Ordered By: Jarrett Loyola on 07-11-2022 ALP [Catalytic activity/Vol] 81 U/L 32-92 [facility] Serum or plasma anion gap de terminationOrdered By: Jarrett Loyola on 07-11-2022 Anion gap [Moles/Vol] 17.0 mmol/L 6.0-15.0 [facility] Serum or plasma aspartate am inotransferase measurement (enzymatic activity/volume)Ordered By: Jarrett Loyola on 07-11-2022 AST [Catalytic activity/Vol] 19 U/L 10-42 [facility] Serum or plasma calcium jimmy urement (mass/volume)Ordered By: Jarrett Loyola on 07-11-2022 Calcium [Mass/Vol] 10.6 mg/dL 8.2-10.2 [facility] Serum or plasma chloride lacho surement (moles/volume)Ordered By: Jarrett Loyola on 07-11-2022 Chloride [Moles/Vol] 99 mmol/L 95-114 [facility] Serum or plasma glucose jimmy urement (mass/volume)Ordered By: Jarrett Loyola on 07-11-2022 Glucose [Mass/Vol] 155 mg/dL 70-100 [facility] Comment on above: ADA recommended refe rence rangeRandom Glucose Reference Range is dependent on time and content of last meal. Glucose of more than 200 mg/dL in a nonstressed, ambulatory subject supports the diagnosis of Diabetes Mellitus. Serum or plasma potassium me asurement (moles/volume)Ordered By: Jarrett Loyola on 07-11-2022 Potassium [Moles/Vol] 4.8 mmol/L 3.5-5.1 [facility] Serum or plasma sodium measu rement (moles/volume)Ordered By: Jarrett Loyola on 07-11-2022 Sodium [Moles/Vol] 137 mmol/L 136-146 [facility] Serum or plasma total biliru bin measurement (mass/volume)Ordered By: Jarrett Loyola on 07-11-2022 Bilirubin [Mass/Vol] 0.5 mg/dL 0.3-1.2 [facility] Serum or plasma total carbon dioxide measurement (moles/volume)Ordered By: Jarrett Loyola on 07-11-2022 CO2 [Moles/Vol] 25.8 mmol/L 22.0-30.0 [facility] Serum or plasma urea nitroge n measurement (mass/volume)Ordered By: Jarrett Loyola on 07-11-2022 Urea nitrogen [Mass/Vol] 23 mg/dL 03-11 [facility] WBC Auto (Bld) [#/Vol]Ordere d By: Jarrett Loyola on 07-11-2022 WBC (Bld) [#/Vol] 9.6 10*3/uL 3.8-11.6 [facility] CALCIUM 24 HR URINEon 2021 CALC, 24 HR UR 134.0 mg/24 hr Normal 100.0-300. 0 [facility] Comment on above: Performed By: #### B MP #### [facility] [address] [address] [address] Jessie Cheney UR CALCIUM 6.7 mg/dL Normal 5.1-21.0 [facility] Comment on above: Performed By: #### B MP #### [facility] [address] [address] [address] Jessie Cheney UR TOT VOL 2000 ml/24 HR Normal [facility] Comment on above: Performed By: #### B MP #### [facility] [address] [address] [address] Jessie Cheney PTH INTACTon 05-31-2022 PTH, Intact 37 pg/mL Normal 15-65 [facility] Comment on above: Performed By: #### B MP #### [facility] [address] [place] [address] Dr. Jessie Cheney PHOSPHORUSon 05-30-2022 Phosphate [Mass/Vol] 2.6 mg/dL Normal 2.6-4.7 [facility] Comment on above: Performed By: #### T SH, FT3 #### [facility] [address] [place] [address] Dr. Jessie Cheney PROF CHEM 8 (BAS METB)on Anion gap [Moles/Vol] 11.6 mmol/L Normal [facility] Comment on above: Performed By: #### T SH, FT3 #### [facility] [address] [place] [address] Dr. Jessie Cheney Calcium [Mass/Vol] 10.3 mg/dL Critically high 8.5-10.1 [facility] Comment on above: Performed By: #### T SH, FT3 #### [facility] [address] [place] [address] Dr. Jessie Cheney Chloride [Moles/Vol] 99 mmol/L Normal 98-107 [facility] Comment on above: Performed By: #### T SH, FT3 #### [facility] [address] [place] [address] Dr. Jessie Cheney CO2 [Moles/Vol] 27.8 mmol/L Normal 21.0-32.0 [facility] Comment on above: Performed By: #### T SH, FT3 #### [facility] [address] [place] [address] Dr. Jessie Cheney Creatinine [Mass/Vol] 1.26 mg/dL Critically high 0.55-1.02 [facility] Comment on above: Performed By: #### T SH, FT3 #### [facility] [address] [place] [address] Dr. Jessie Cheney EGFR-AF TANZANIAN 50 mL/min/1.73m2 Critically low >=60 [facility] Comment on above: Performed By: #### T SH, FT3 #### [facility] [address] [place] [address] Dr. Jessie Cheney EGFR-NON AF TANZANIAN 41 mL/min/1.73m2 Critically low >=60 [facility] Comment on above: Performed By: #### T SH, FT3 #### [facility] [address] [place] [address] Dr. Jessie Cheney Glucose [Mass/Vol] 220 mg/dL Critically high 74-106 [facility] Comment on above: Performed By: #### T SH, FT3 #### [facility] [address] [place] [address] Dr. Jessie Cheney Potassium [Moles/Vol] 4.4 mmol/L Normal 3.5-5.1 [facility] Comment on above: Performed By: #### T KIRA, FT3 #### [facility] [address] [place] [address] Dr. Jessie Cheney Sodium [Moles/Vol] 134 mmol/L Critically low 136-145 [facility] Comment on above: Performed By: #### T KIRA, FT3 #### [facility] [address] [place] [address] Dr. Jessie Cheney Urea nitrogen [Mass/Vol] 27.0 mg/dL Critically high 7.0-18.0 [facility] Comment on above: Performed By: #### T KIRA, FT3 #### [facility] [address] [place] [address] Dr. Jessie Cheney Urea nitrogen/Creatinine [Mass ratio] 21.4 mg/mg Normal [facility] Comment on above: Performed By: #### T KIRA, FT3 #### [facility] [address] [place] [address] Dr. Jessie Cheney VITAMIN D 25 OHon 05-30-2022 VIT D 25-OH 28.7 ng/mL Normal [facility] Comment on above: Performed By: #### B MP #### [facility] [address] [place] [address] Dr. Jessie Cheney VIT D RANGES SEE BELOW Normal [facility] Comment on above: Result Comment: <20 ng/mL Vit D deficient 20 - <30 ng/mL Vit D insufficient 30 - 100 ng/mL Vit D sufficient >100 ng/mL Potential Toxicity Performed By: #### B MP #### [facility] [address] [address] [address] Jessie Cheney MICROALBUMIN URINEon 022 Albumin, Urine 154.3 ug/mL Normal Not Estab. [facility] Comment on above: Performed By: #### B MP #### [facility] [address] [address] [address] Jessie Cheney GLYCOHEMOGLOBIN A1Con 2021 ADA RECOMMENDATION SEE BELOW Normal [facility] Comment on above: Result Comment: ADA RECOMMENDED LIMIT 4.0 - 6.0 ADA THERAPEUTIC TARGET < 7.0 ACTION SUGGESTED > 7.0 Performed By: #### A 1C #### [facility] [address] [address] [address] Jessie Cheney Glucose [Mass/Vol] 209 mg/dL Normal [facility] Comment on above: Performed By: #### A 1C #### [facility] [address] [address] [address] Jessie Cheney HbA1c (Bld) [Mass fraction] 8.9 % Critically high 4.5-6.2 [facility] Comment on above: Performed By: #### A 1C #### [facility] [address] [address] [address] Jessie Cheney MG MAMM SCREEN 3D RAMILA CADon 03-15-2022 MG MAMM SCREEN 3D RAMILA CAD Patient: MAAME VELASCO Exam Date: 03/15/2022 : 1945 Gender:F Ordering : DR RAMIN DE PAZ D.O. Admission #: [id number] Family : Order #: [id number] CLICK HERE TO VIEW EXAM RADIOLOGY REPORT [...] Treatments None Family Cancers None LOCATION: [facility] BREAST COMPOSITION: Scattered areas fibroglandular density. [...] Malik MD on 03/16/2022 at 07:44 Normal [facility] PROF CHEM 8 (BAS METB)on Anion gap [Moles/Vol] 12.4 mmol/L Normal [facility] Comment on above: Performed By: #### B MP #### [facility] [address] [place] [address] Dr. Jessie Cheney Calcium [Mass/Vol] 10.4 mg/dL Critically high 8.5-10.1 [facility] Comment on above: Performed By: #### B MP #### [facility] [address] [place] [address] Dr. Jessie Cheney Chloride [Moles/Vol] 97 mmol/L Critically low 98-107 [facility] Comment on above: Performed By: #### B MP #### [facility] [address] [place] [address] Dr. Jessie Cheney CO2 [Moles/Vol] 30.8 mmol/L Normal 21.0-32.0 [facility] Comment on above: Performed By: #### B MP #### [facility] [address] [place] [address] Dr. Jessie Cheney Creatinine [Mass/Vol] 1.26 mg/dL Critically high 0.55-1.02 [facility] Comment on above: Performed By: #### B MP #### [facility] [address] [place] [address] Dr. Jessie Cheney EGFR-AF TANZANIAN 50 mL/min/1.73m2 Critically low >=60 [facility] Comment on above: Performed By: #### B MP #### [facility] [address] [place] [address] Dr. Jessie Cheney EGFR-NON AF TANZANIAN 41 mL/min/1.73m2 Critically low >=60 [facility] Comment on above: Performed By: #### B MP #### [facility] [address] [address] [address] Jessie Cheney Glucose [Mass/Vol] 288 mg/dL Critically high 74-106 [facility] Comment on above: Performed By: #### B MP #### [facility] [address] [address] [address] Jessie Cheney Potassium [Moles/Vol] 4.2 mmol/L Normal 3.5-5.1 [facility] Comment on above: Performed By: #### B MP #### [facility] [address] [address] [address] Jessie Cheney Sodium [Moles/Vol] 136 mmol/L Normal 136-145 [facility] Comment on above: Performed By: #### B MP #### [facility] [address] [address] [address] Jessie Cheney Urea nitrogen [Mass/Vol] 21.0 mg/dL Critically high 7.0-18.0 [facility] Comment on above: Performed By: #### B MP #### [facility] [address] [address] [address] Jessie Cheney Urea nitrogen/Creatinine [Mass ratio] 16.7 mg/mg Normal [facility] Comment on above: Performed By: #### B MP #### [facility] [address] [address] [address] Jessie Cheney XR DEXA BONE DENSITYon [...] ESTUARDO MALIK Date: 2022-03-15 17:24 Normal [facility] - Hematology and Cell countsOrdered By: Jarrett Loyola on 02-15-2022 Nucleated RBC/100 WBC (Bld) [Ratio] 0.0 % 0-0.5 [facility] Covid-19 PCR (CVDTBH)on 12-18 SARS-CoV-2 (COVID-19) RNA RADHIKA+probe Ql (Unsp spec) Detected Critically abnormal NOT DETECTED [facility] Comment on above: Result Comment: This test is not yet approved or cleared by the [place] FDA. When there are no FDA-approved or cleared tests available, and other criteria are met, FDA can make tests available under an emergency access mechanism called an Emergency Use Authorization (EUA). The EUA for this test is supported by the [place] of Health and Human Service's declaration that [...] used). Performed By: #### B MP #### [facility] [address] [place] [address] Dr. Jessie Cheney Basophils Auto (Bld) [#/Vol] Ordered By: Jarrett Loyola on 01-05-2022 Basophils (Bld) [#/Vol] 0.0 10*3/uL 0.0-0.2 [facility] Basophils/100 WBC Auto (Bld) Ordered By: Jarrett Loyola on 01-05-2022 Basophils/100 WBC (Bld) 0.4 % . [facility] Blood hemoglobin measurement (mass/volume)Ordered By: Jarrett Loyola on 01-05-2022 Hemoglobin (Bld) [Mass/Vol] 12.2 g/dL 11.8-15.4 [facility] Blood leukocytes automated c ount (number/volume)Ordered By: Jarrett Loyola on 01-05-2022 WBC (Bld) [#/Vol] 11.4 10*3/uL 4.5-11.0 [facility] Body fluid albumin measureme nt (mass/volume)Ordered By: Jarrett Loyola on 01-05-2022 Albumin (Body fld) [Mass/Vol] 4.1 g/dL 3.2-5.5 [facility] Creatinine and Glomerular fi ltration rate.predicted panel (S/P/Bld)Ordered By: Jarrett Loyola on 01-05-2022 Creatinine [Mass/Vol] 1.23 mg/dL 0.44-1.03 [facility] Eosinophils Auto (Bld) [#/Vo l]Ordered By: Jarrett Loyola on 01-05-2022 Eosinophils (Bld) [#/Vol] 0.2 10*3/uL 0.0-0.45 [facility] Eosinophils/100 WBC Auto (Bl d)Ordered By: Jarrett Loyola on 01-05-2022 Eosinophils/100 WBC (Bld) 1.9 % . [facility] Erythrocyte distribution wid th Auto (RBC) [Ratio]Ordered By: Jarrett Loyola on 01-05-2022 Erythrocyte distribution width (RBC) [Ratio] 13.7 % 11.9-15.3 [facility] Estimated glomerular filtrat ion rate (GFR) non- AmericanOrdered By: Jarrett Loyola on 01-05-2022 GFR/1.73 sq M.predicted among non-blacks MDRD (S/P/Bld) [Vol rate/Area] 42 mL/Min [facility] Globulin Calc (S) [Mass/Vol] Ordered By: Jarrett Loyola on 01-05-2022 Globulin (S) [Mass/Vol] 2.3 g/dL [facility] Hematocrit Auto (Bld) [Volum e fraction]Ordered By: Jarrett Loyola on 01-05-2022 Hematocrit (Bld) [Volume fraction] 36.6 % 34.0-46.4 [facility] - Hematology and Cell countsOrdered By: Jarrett Loyola on 01-05-2022 Nucleated RBC/100 WBC (Bld) [Ratio] 0.0 % 0-0.5 [facility] Lymphocytes Auto (Bld) [#/Vo l]Ordered By: Jarrett Loyola on 01-05-2022 Lymphocytes (Bld) [#/Vol] 2.2 10*3/uL 1.00-4.8 [facility] Lymphocytes/100 WBC Auto (Bl d)Ordered By: Jarrett Loyola on 01-05-2022 Lymphocytes/100 WBC (Bld) 19.4 % . [facility] MCH Auto (RBC) [Entitic mass ]Ordered By: Jarrett Loyola on 01-05-2022 MCH (RBC) [Entitic mass] 29.7 pg 24.7-34.3 [facility] MCHC Auto (RBC) [Mass/Vol]Or dered By: Jarrett Loyola on 01-05-2022 MCHC (RBC) [Mass/Vol] 33.3 g/dL 32.0-35.0 [facility] MCV Auto (RBC) [Entitic vol] Ordered By: Jarrett Loyola on 01-05-2022 MCV (RBC) [Entitic vol] 89.2 fL 80-100 [facility] Monocytes Auto (Bld) [#/Vol] Ordered By: Jarrett Loyola on 01-05-2022 Monocytes (Bld) [#/Vol] 0.8 10*3/uL 0.0-0.8 [facility] Monocytes/100 WBC Auto (Bld) Ordered By: Jarrett Loyola on 01-05-2022 Monocytes/100 WBC (Bld) 7.0 % . [facility] Neutrophils Auto (Bld) [#/Vo l]Ordered By: Jarrett Loyola on 01-05-2022 Neutrophils (Bld) [#/Vol] 8.1 10*3/uL 1.8-7.7 [facility] Neutrophils/100 WBC Auto (Bl d)Ordered By: Jarrett Loyola on 01-05-2022 Neutrophils/100 WBC (Bld) 71.3 % . [facility] No Panel InformationOrdered By: Jarrett Loyola on 01-05-2022 25-Hydroxy Vitamin D Total 26.0 ng/mL 30-100 [facility] Comment on above: VITAMIN D STATUS 25( [place])VITAMIN D RANGE (ng/mL) Deficient <20 Insufficient 20 to <30 Sufficient 30 to 100 Reference: Ashia Courtney, Lisa FULLER, et al. Evaluation,treatment, and prevention of vitamin D deficiency; an Endocrine Society clinical practice guideline. JCEM. 2010; 96(7):1911-. VITAMIN D STATUS 25( [place])VITAMIN D RANGE (ng/mL) Deficient <20 Insufficient 20 to <30Sufficient 30 to 100Reference: Ashia Courtney, Lisa FULLER, et al. Evaluation,treatment, and prevention of vitamin D deficiency; an Endocrine Society clinical practice guideline. JCEM. 2010; 96(7):1911-. Estimated GFR () 51 mL/Min [facility] Comment on above: GFR estimated refere nce range: According to KDOQI guidelines, <60 ml/min/1.73m2 is sufficient to diagnose a patient with chronic kidney disease. Pharmacy Creatinine Clearance (Chem 33.02 [facility] Platelet mean volume Auto (B ld) [Entitic vol]Ordered By: Jarrett Loyola on 01-05-2022 Platelet mean volume (Bld) [Entitic vol] 9.5 fL 6.3-10.7 [facility] Platelets Auto (Bld) [#/Vol] Ordered By: Jarrett Loyola on 01-05-2022 Platelets (Bld) [#/Vol] 258 10*3/uL 150-450 [facility] Protein [Mass/volume] in Ser um or PlasmaOrdered By: Jarrett Loyola on 01-05-2022 Protein [Mass/Vol] 6.4 g/dL 6.1-7.9 [facility] RBC Auto (Bld) [#/Vol]Ordere d By: Jarrett Loyola on 01-05-2022 RBC (Bld) [#/Vol] 4.10 10*6/uL 3.60-5.00 [facility] Serum or plasma alanine [place] otransferase measurement without P-5'-P (enzymatic activiOrdered By: Jarrett Loyola on 01-05-2022 ALT No additional P-5'-P [Catalytic activity/Vol] 23 U/L 10-60 [facility] Serum or plasma albumin/glob ulin mass ratioOrdered By: Jarrett Loyola on 01-05-2022 Albumin/Globulin [Mass ratio] 1.8 {ratio} [facility] Serum or plasma alkaline jesus sphatase measurement (enzymatic activity/volume)Ordered By: Jarrett Loyola on 01-05-2022 ALP [Catalytic activity/Vol] 105 U/L 32-92 [facility] Serum or plasma aspartate am inotransferase measurement (enzymatic activity/volume)Ordered By: Jarrett Loyola on 01-05-2022 AST [Catalytic activity/Vol] 17 U/L 10-42 [facility] Serum or plasma calcitriol m easurement (mass/volume)Ordered By: Jarrett Loyola on 01-05-2022 1,25-dihydroxyvitamin D3 [Mass/Vol] 49.7 pg/mL 24.8-81.5 [facility] Comment on above: Please note refere nce interval change Performed at: [facility] [id number] Tractor Operator: Uziel Granado MD, Phone: [phone] Please note refere nce interval changePerformed at: [facility] [id number] Director: Uziel Granado MD, Phone: [phone] Serum or plasma calcium jimmy urement (mass/volume)Ordered By: Jarrett Loyola on 01-05-2022 Calcium [Mass/Vol] 10.3 mg/dL 8.2-10.2 [facility] Serum or plasma chloride lacho surement (moles/volume)Ordered By: Jarrett Loyola on 01-05-2022 Chloride [Moles/Vol] 95 mmol/L 95-114 [facility] Serum or plasma glucose jimmy urement (mass/volume)Ordered By: Jarrett Loyola on 01-05-2022 Glucose [Mass/Vol] 375 mg/dL 70-100 [facility] Comment on above: ADA recommended refe rence range Random Glucose Reference Range is dependent on time and content of last meal. Glucose of more than 200 mg/dL in a nonstressed, ambulatory subject supports the diagnosis of Diabetes Mellitus. Serum or plasma intact parat hyroid hormone measurement (mass/volume)Ordered By: Jarrett Loyola on 01-05-2022 Parathyrin.intact [Mass/Vol] 73.7 pg/mL [facility] Serum or plasma potassium me asurement (moles/volume)Ordered By: Jarrett Loyola on 01-05-2022 Potassium [Moles/Vol] 4.6 mmol/L 3.5-5.1 [facility] Serum or plasma sodium measu rement (moles/volume)Ordered By: Jarrett Loyola on 01-05-2022 Sodium [Moles/Vol] 130 mmol/L 136-146 [facility] Serum or plasma total biliru bin measurement (mass/volume)Ordered By: Jarrett Loyola on 01-05-2022 Bilirubin [Mass/Vol] 0.5 mg/dL 0.3-1.2 [facility] Serum or plasma total carbon dioxide measurement (moles/volume)Ordered By: Jarrett Loyola on 01-05-2022 CO2 [Moles/Vol] 24.4 mmol/L 22.0-30.0 [facility] Serum or plasma urea nitroge n measurement (mass/volume)Ordered By: Jarrett Loyola on 01-05-2022 Urea nitrogen [Mass/Vol] 23 mg/dL 9-[address] [facility] [address] biopsyOrdered By: Cora Leyva on 09-10-2021 Transferrin [Mass/Vol] 263 mg/dL 180-380 [facility] Ferritin [Mass/volume] in Se rum or PlasmaOrdered By: Cora Gaming on 09-10-2021 Ferritin [Mass/Vol] 83.0 ng/mL 11-306.8 [facility] Iron [Mass/volume] in Serum or PlasmaOrdered By: Cora Gaming on 09-10-2021 Iron [Mass/Vol] 64 ug/dL 40-150 [facility] Iron binding capacity [Mass/ volume] in Serum or PlasmaOrdered By: Cora Gaming on 09-10-2021 Iron binding capacity [Mass/Vol] 368 ug/dL 255-450 [facility] Iron saturation [Mass Fracti on] in Serum or PlasmaOrdered By: Cora Amberly on 09-10-2021 Iron saturation [Mass fraction] 17.0 % 20-50 [facility] No Panel InformationOrdered By: Cora Amberly on 09-10-2021 Large Platelets Slight [facility] Platelet Estimate Normal Normal [facility] Platelet Morphology Comment N/A [facility] RBC morphologyOrdered By: Arminda Gaming on 09-10-2021 RBC morphology finding Nom (Bld) Normal [facility] PROF CHEM 8 (BAS METB)on Anion gap [Moles/Vol] 11.6 mmol/L Normal [facility] Comment on above: Performed By: #### B MP #### [facility] [address] [place] [address] Dr. Jessie Cheney Calcium [Mass/Vol] 10.4 mg/dL Critically high 8.4-10.2 [facility] Comment on above: Performed By: #### B MP #### [facility] [address] [address] [address] Jessie Cheney Chloride [Moles/Vol] 101 mmol/L Normal 98-107 [facility] Comment on above: Performed By: #### B MP #### [facility] [address] [address] [address] Jessie Cheney CO2 [Moles/Vol] 27.8 mmol/L Normal 22.0-30.0 [facility] Comment on above: Performed By: #### B MP #### [facility] [address] [address] [address] Jessie Cheney Creatinine [Mass/Vol] 0.89 mg/dL Normal 0.52-1.04 [facility] Comment on above: Performed By: #### B MP #### [facility] [address] [address] [address] Jessie Cheney EGFR-AF TANZANIAN >60 Normal >=60 [facility] Comment on above: Performed By: #### B MP #### [facility] [address] [address] [address] Jessie Cheney EGFR-NON AF TANZANIAN >60 Normal >=60 [facility] Comment on above: Performed By: #### B MP #### [facility] [address] [place] [address] Dr. Jessie Cheney Glucose [Mass/Vol] 189 mg/dL Critically high 74-106 [facility] Comment on above: Performed By: #### B MP #### [facility] [address] [place] [address] Dr. Jessie Cheney Potassium [Moles/Vol] 4.4 mmol/L Normal 3.4-5.0 [facility] Comment on above: Performed By: #### B MP #### [facility] [address] [place] [address] Dr. Jessie Cheney Sodium [Moles/Vol] 136 mmol/L Critically low 137-145 [facility] Comment on above: Performed By: #### B MP #### [facility] [address] [place] [address] Dr. Jessie Cheney Urea nitrogen [Mass/Vol] 14.0 mg/dL Normal 7.0-17.0 [facility] Comment on above: Performed By: #### B MP #### [facility] [address] [place] [address] Dr. Jessie Cheney Urea nitrogen/Creatinine [Mass ratio] 15.7 mg/mg Normal [facility] Comment on above: Performed By: #### B MP #### [facility] [address] [place] [address] Dr. Jessie Cheney CBC AUTO DIFFon 08-17-2021 BASO # 0.1 103/ul Normal 0.0-0.1 [facility] Comment on above: Performed By: #### T SH, FT3 #### [facility] [address] [place] [address] Dr. Jessie Cheney Basophils/100 WBC (Bld) 0.6 % Normal 0.2-2.0 [facility] Comment on above: Performed By: #### T SH, FT3 #### [facility] [address] [place] [address] Dr. Jessie Cheney EO # 0.3 103/ul Normal 0.0-0.7 [facility] Comment on above: Performed By: #### T KIRA, FT3 #### [facility] [address] [place] [address] Dr. Jessie Cheney Eosinophils/100 WBC (Bld) 2.6 % Normal 0.9-7.0 [facility] Comment on above: Performed By: #### T KIRA, FT3 #### [facility] [address] [place] [address] Dr. Jessie Cheney Erythrocyte distribution width (RBC) [Ratio] 16.7 % Critically high 11.0-15.0 [facility] Comment on above: Performed By: #### T KIRA, FT3 #### [facility] [address] [place] [address] Dr. Jessie Cheney Hematocrit (Bld) [Volume fraction] 39.9 % Normal 36.0-48.0 [facility] Comment on above: Performed By: #### T KIRA, FT3 #### [facility] [address] [place] [address] Dr. Jessie Cheney Hemoglobin (Bld) [Mass/Vol] 12.9 g/dL Normal 12.0-16.0 [facility] Comment on above: Performed By: #### T KIRA, FT3 #### [facility] [address] [place] [address] Dr. Jessie Cheney IG # 0.03 10e3/ul Normal 0.00-0.03 [facility] Comment on above: Performed By: #### T KIRA, FT3 #### [facility] [address] [place] [address] Dr. Jessie Cheney IG % 0.3 % Normal 0.0-0.5 [facility] Comment on above: Performed By: #### T KIRA, FT3 #### [facility] [address] [place] [address] Dr. Jessie Cheney LYMPH # 3.0 103/ul Normal 1.2-3.8 [facility] Comment on above: Performed By: #### T KIRA, FT3 #### [facility] [address] [place] [address] Dr. Jessie Cheney Lymphocytes/100 WBC (Bld) 30.6 % Normal 20.5-60.0 [facility] Comment on above: Performed By: #### T SH, FT3 #### [facility] [address] [place] [address] Dr. Jessie Cheney MANUAL DIFF REQ NO Normal [facility] Comment on above: Performed By: #### T SH, FT3 #### [facility] [address] [place] [address] Dr. Jessie Cheney MCH (RBC) [Entitic mass] 27.9 pg Normal 26.7-34.0 [facility] Comment on above: Performed By: #### T , FT3 #### [facility] [address] [place] [address] Dr. Jessie Cheney MCHC (RBC) [Mass/Vol] 32.3 g/dL Normal 29.9-35.2 [facility] Comment on above: Performed By: #### T , FT3 #### [facility] [address] [place] [address] Dr. Jessie Cheney MCV (RBC) [Entitic vol] 86.4 fL Normal 81.0-99.0 [facility] Comment on above: Performed By: #### T , FT3 #### [facility] [address] [place] [address] Dr. Jessie Cheney MONO # 0.9 103/ul Critically high 0.3-0.8 [facility] Comment on above: Performed By: #### T , FT3 #### [facility] [address] [place] [address] Dr. Jessie Cheney Monocytes/100 WBC (Bld) 8.7 % Normal 1.7-12.0 [facility] Comment on above: Performed By: #### T SH, FT3 #### [facility] [address] [place] [address] Dr. Jessie Cheney NEUT # 5.6 103/ul Normal 1.4-6.5 [facility] Comment on above: Performed By: #### T SH, FT3 #### [facility] [address] [place] [address] Dr. Jessie Cheney Neutrophils/100 WBC (Bld) 57.2 % Normal 43.0-75.0 [facility] Comment on above: Performed By: #### T SH, FT3 #### [facility] [address] [place] [address] Dr. Jessie Cheney Platelet mean volume (Bld) [Entitic vol] 9.9 fL Normal 9.5-13.5 [facility] Comment on above: Performed By: #### T SH, FT3 #### [facility] [address] [place] [address] Dr. Jessie Cheney PLT 221 103/ul Normal 150-450 [facility] Comment on above: Performed By: #### T SH, FT3 #### [facility] [address] [place] [address] Dr. Jessie Cheney RBC 4.62 106/ul Normal 4.20-5.40 [facility] Comment on above: Performed By: #### T SH, FT3 #### [facility] [address] [place] [address] Dr. Jessie Cheney WBC 9.8 103/ul Normal 4.0-11.0 [facility] Comment on above: Performed By: #### T SH, FT3 #### [facility] [address] [place] [address] Dr. Jessie Cheney PROF 14(COMP METB)on 022 Albumin [Mass/Vol] 4.0 g/dL Normal 3.5-5.0 [facility] Comment on above: Performed By: #### C MP #### [facility] [address] [place] [address] Dr. Jessie Cheney Albumin/Globulin [Mass ratio] 1.2 {ratio} Normal [facility] Comment on above: Performed By: #### C MP #### [facility] [address] [place] [address] Dr. Jessie Cheney ALP [Catalytic activity/Vol] 153 U/L Critically high 38-126 [facility] Comment on above: Performed By: #### C MP #### [facility] [address] [address] [address] Jessie Cheney ALT [Catalytic activity/Vol] 30 U/L Normal 9-52 [facility] Comment on above: Performed By: #### C MP #### [facility] [address] [address] [address] Jessie Cheney Anion gap [Moles/Vol] 10.7 mmol/L Normal [facility] Comment on above: Performed By: #### C MP #### [facility] [address] [address] [address] Jessie Cheney AST [Catalytic activity/Vol] 12 U/L Critically low 14-36 [facility] Comment on above: Performed By: #### C MP #### [facility] [address] [place] [address] Dr. Jessie Cheney Bilirubin [Mass/Vol] 0.3 mg/dL Normal 0.2-1.3 [facility] Comment on above: Performed By: #### C MP #### [facility] [address] [place] [address] Dr. Jessie Cheney Calcium [Mass/Vol] 10.7 mg/dL Critically high 8.4-10.2 [facility] Comment on above: Performed By: #### C MP #### [facility] [address] [place] [address] Dr. Jessie Cheney Chloride [Moles/Vol] 100 mmol/L Normal 98-107 [facility] Comment on above: Performed By: #### C MP #### [facility] [address] [place] [address] Dr. Jessie Cheney CO2 [Moles/Vol] 27.5 mmol/L Normal 22.0-30.0 [facility] Comment on above: Performed By: #### C MP #### [facility] [address] [place] [address] Dr. Jessie Cheney Creatinine [Mass/Vol] 1.07 mg/dL Critically high 0.52-1.04 [facility] Comment on above: Performed By: #### C MP #### [facility] [address] [address] [address] Jessie Cheney EGFR-AF TANZANIAN >60 Normal >=60 [facility] Comment on above: Performed By: #### C MP #### [facility] [address] [address] [address] Jessie Cheney EGFR-NON AF TANZANIAN 50 mL/min/1.73m2 Critically low >=60 [facility] Comment on above: Performed By: #### C MP #### [facility] [address] [address] [address] Jessie Cheney Globulin (S) [Mass/Vol] 3.4 g/dL Normal [facility] Comment on above: Performed By: #### C MP #### [facility] [address] [address] [address] Jessie Cheney Glucose [Mass/Vol] 217 mg/dL Critically high 74-106 [facility] Comment on above: Performed By: #### C MP #### [facility] [address] [address] [address] Jessie Cheney Potassium [Moles/Vol] 4.2 mmol/L Normal 3.4-5.0 [facility] Comment on above: Performed By: #### C MP #### [facility] [address] [address] [address] Jessie Cheney Protein [Mass/Vol] 7.4 g/dL Normal 6.1-8.2 [facility] Comment on above: Performed By: #### C MP #### [facility] [address] [address] [address] Jessie Cheney Sodium [Moles/Vol] 134 mmol/L Critically low 137-145 [facility] Comment on above: Performed By: #### C MP #### [facility] [address] [address] [address] Jessie Cheney Urea nitrogen [Mass/Vol] 20.0 mg/dL Critically high 7.0-17.0 [facility] Comment on above: Performed By: #### C MP #### [facility] [address] [address] [address] Jessie Cheney Urea nitrogen/Creatinine [Mass ratio] 18.7 mg/mg Normal [facility] Comment on above: Performed By: #### C MP #### [facility] [address] [address] [address] Jessie Cheney XR CHEST 1 Von 08-17-2021 XR CHEST 1 V EXAMINATION: XR CHES T 1 V, , 08/16/2021 10:44 PM EST [...] by: SENDY MEI Date: 2021-08-16 23:27 Normal [facility] GLYCOHEMOGLOBIN A1Con 2021 ADA RECOMMENDATION ADA THERAPEUTIC TARG ET 6.0 - 7.0 ACTION SUGGESTED > 7.0 Normal [facility] Comment on above: Performed By: #### B MP #### [facility] [address] [address] [address] Jessie Cheney Glucose [Mass/Vol] 163 mg/dL Normal [facility] Comment on above: Performed By: #### B MP #### [facility] [address] [address] [address] Jessie Cheney HbA1c (Bld) [Mass fraction] 7.3 % Critically high <=6.0 [facility] Comment on above: Performed By: #### B MP #### [facility] [address] [address] [address] Jessie Cheney Blood anisocytosis detection Ordered By: Jarrett Loyola on 07-09-2021 Anisocytosis Ql (Bld) Moderate [facility] Hypochromia detectionOrdered By: Jarrett Loyola on 07-09-2021 Hypochromia Ql (Bld) Slight [facility] No Panel InformationOrdered By: Jarrett Loyola on 07-09-2021 Poikilocytosis [facility] Ovalocyte detectionOrdered B y: Jarrett Nir on 07-09-2021 Ovalocytes LM Ql (Bld) [facility] Blood polychromasia detectio n by light microscopyOrdered By: Jarrett iNr on 06-28-2021 Polychromasia LM Ql (Bld) [facility] No Panel InformationOrdered By: Jarrett Loyola on 06-28-2021 Rouleau [facility] Schistocytes [facility] PRBC LEUKOREDUCEDon 06-23-19 ABO and Rh group Nom (Bld) Cross Match Result Compatible Unit Blood Type O Pos Unit Number [id number] Status Information Transfused Product ID Red Blood Cells Product Code [id number] Cross Match Result Compatible Unit Blood Type O Pos Unit Number [id number] Status Information Transfused Product ID Red Blood Cells Product Code [id number] Normal [facility] Comment on above: Performed By: #### P RBC #### [facility] [address] [place] [address] Dr. Jessie Cheney PRBC LEUKOREDUCED Cross Match Result Compatible Unit Blood Type O Pos Unit Number [id number] Status Information Transfused Product ID Red Blood Cells Product Code [id number] Normal [facility] Comment on above: Performed By: #### C BC #### [facility] [address] [place] [address] Dr. Jessie Cheney CBC AUTO DIFFon 06-21-2021 BASO # 0.0 103/ul Normal 0.0-0.1 [facility] Comment on above: Performed By: #### C BC #### [facility] [address] [place] [address] Dr. Jessie Cheney Basophils/100 WBC (Bld) 0.3 % Normal 0.2-2.0 [facility] Comment on above: Performed By: #### C BC #### [facility] [address] [place] [address] Dr. Jessie Cheney EO # 0.2 103/ul Normal 0.0-0.7 [facility] Comment on above: Performed By: #### C BC #### [facility] [address] [address] [address] Jessie Cheney Eosinophils/100 WBC (Bld) 1.3 % Normal 0.9-7.0 [facility] Comment on above: Performed By: #### C BC #### [facility] [address] [place] [address] Dr. Jessie Cheney Erythrocyte distribution width (RBC) [Ratio] 25.4 % Critically high 11.0-15.0 [facility] Comment on above: Result Comment: 4+ A NISOCYTOSIS Performed By: #### C BC #### [facility] [address] [place] [address] Dr. Jessie Cheney Hematocrit (Bld) [Volume fraction] 33.4 % Critically low 36.0-48.0 [facility] Comment on above: Performed By: #### C BC #### [facility] [address] [place] [address] Dr. Jessie Cheney Hemoglobin (Bld) [Mass/Vol] 10.2 g/dL Critically low 12.0-16.0 [facility] Comment on above: Performed By: #### C BC #### [facility] [address] [place] [address] Dr. Jessie Cheney IG # 0.14 10e3/ul Critically high 0.00-0.03 [facility] Comment on above: Performed By: #### C BC #### [facility] [address] [place] [address] Dr. Jessie Cheney IG % 1.1 % Critically high 0.0-0.5 [facility] Comment on above: Performed By: #### C BC #### [facility] [address] [place] [address] Dr. Jessie Cheney LYMPH # 2.0 103/ul Normal 1.2-3.8 [facility] Comment on above: Performed By: #### C BC #### [facility] [address] [place] [address] Dr. Jessie Cheney Lymphocytes/100 WBC (Bld) 15.2 % Critically low 20.5-60.0 [facility] Comment on above: Performed By: #### C BC #### [facility] [address] [place] [address] Dr. Jessie Cheney MANUAL DIFF REQ NO Normal [facility] Comment on above: Performed By: #### C BC #### [facility] [address] [place] [address] Dr. Jessie Cheney MCH (RBC) [Entitic mass] 26.4 pg Critically low 26.7-34.0 [facility] Comment on above: Performed By: #### C BC #### [facility] [address] [place] [address] Dr. Jessie Cheney MCHC (RBC) [Mass/Vol] 30.5 g/dL Normal 29.9-35.2 [facility] Comment on above: Performed By: #### C BC #### [facility] [address] [place] [address] Dr. Jessie Cheney MCV (RBC) [Entitic vol] 86.5 fL Normal 81.0-99.0 [facility] Comment on above: Performed By: #### C BC #### [facility] [address] [place] [address] Dr. Jessie Cheney MONO # 0.9 103/ul Critically high 0.3-0.8 [facility] Comment on above: Performed By: #### C BC #### [facility] [address] [place] [address] Dr. Jessie Cheney Monocytes/100 WBC (Bld) 6.9 % Normal 1.7-12.0 [facility] Comment on above: Performed By: #### C BC #### [facility] [address] [place] [address] Dr. Jessie Cheney NEUT # 9.8 103/ul Critically high 1.4-6.5 [facility] Comment on above: Performed By: #### C BC #### [facility] [address] [place] [address] Dr. Jessie Cheney Neutrophils/100 WBC (Bld) 75.2 % Critically high 43.0-75.0 [facility] Comment on above: Performed By: #### C BC #### [facility] [address] [place] [address] Dr. Jessie Cheney Platelet mean volume (Bld) [Entitic vol] 10.2 fL Normal 9.5-13.5 [facility] Comment on above: Performed By: #### C BC #### [facility] [address] [place] [address] Dr. Jessie Cheney PLT 342 103/ul Normal 150-450 [facility] Comment on above: Performed By: #### C BC #### [facility] [address] [place] [address] Dr. Jessie Cheney RBC 3.86 106/ul Critically low 4.20-5.40 [facility] Comment on above: Result Comment: JAN CELLS 2+; OVALOCYTES 1+; TEAR DROP 1+ Performed By: #### C BC #### [facility] [address] [place] [address] Dr. Jessie Cheney WBC 13.0 103/ul Critically high 4.0-11.0 [facility] Comment on above: Performed By: #### C BC #### [facility] [address] [place] [address] Dr. Jessie Cheney CBC AUTO DIFFon 06-16-2021 BASO # 0.0 103/ul Normal 0.0-0.1 [facility] Comment on above: Performed By: #### T SH, FT3 #### [facility] [address] [place] [address] Dr. Jessie Cheney Basophils/100 WBC (Bld) 0.2 % Normal 0.2-2.0 [facility] Comment on above: Performed By: #### T SH, FT3 #### [facility] [address] [place] [address] Dr. Jessie Cheney EO # 0.0 103/ul Normal 0.0-0.7 [facility] Comment on above: Performed By: #### T SH, FT3 #### [facility] [address] [place] [address] Dr. Jessie Cheney Eosinophils/100 WBC (Bld) 0.0 % Critically low 0.9-7.0 [facility] Comment on above: Performed By: #### T SH, FT3 #### [facility] [address] [place] [address] Dr. Jessie Cheney Erythrocyte distribution width (RBC) [Ratio] 22.0 % Critically high 11.0-15.0 [facility] Comment on above: Performed By: #### T SH, FT3 #### [facility] [address] [place] [address] Dr. Jessie Cheney Hematocrit (Bld) [Volume fraction] 25.1 % Critically low 36.0-48.0 [facility] Comment on above: Performed By: #### T KIRA, FT3 #### [facility] [address] [place] [address] Dr. Jessie Cheney Hemoglobin (Bld) [Mass/Vol] 7.7 g/dL Critically low 12.0-16.0 [facility] Comment on above: Performed By: #### T KIRA, FT3 #### [facility] [address] [place] [address] Dr. Jessie Cheney IG # 0.28 10e3/ul Critically high 0.00-0.03 [facility] Comment on above: Performed By: #### T KIRA, FT3 #### [facility] [address] [place] [address] Dr. Jessie Cheney IG % 1.9 % Critically high 0.0-0.5 [facility] Comment on above: Performed By: #### T KIRA, FT3 #### [facility] [address] [place] [address] Dr. Jessie Cheney LYMPH # 1.7 103/ul Normal 1.2-3.8 [facility] Comment on above: Performed By: #### T KIRA, FT3 #### [facility] [address] [place] [address] Dr. Jessie Cheney Lymphocytes/100 WBC (Bld) 11.2 % Critically low 20.5-60.0 [facility] Comment on above: Performed By: #### T KIRA, FT3 #### [facility] [address] [place] [address] Dr. Jessie Cheney MANUAL DIFF REQ NO Normal [facility] Comment on above: Performed By: #### T KIRA, FT3 #### [facility] [address] [place] [address] Dr. Jessie Cheney MCH (RBC) [Entitic mass] 24.9 pg Critically low 26.7-34.0 [facility] Comment on above: Performed By: #### T KIRA, FT3 #### [facility] [address] [place] [address] Dr. Jessie Cheney MCHC (RBC) [Mass/Vol] 30.7 g/dL Normal 29.9-35.2 [facility] Comment on above: Performed By: #### T KIRA, FT3 #### [facility] [address] [place] [address] Dr. Jessie Cheney MCV (RBC) [Entitic vol] 81.2 fL Normal 81.0-99.0 [facility] Comment on above: Performed By: #### T KIRA, FT3 #### [facility] [address] [place] [address] Dr. Jessie Cheney MONO # 0.8 103/ul Normal 0.3-0.8 [facility] Comment on above: Performed By: #### T KIRA, FT3 #### [facility] [address] [place] [address] Dr. Jessie Cheney Monocytes/100 WBC (Bld) 5.4 % Normal 1.7-12.0 [facility] Comment on above: Performed By: #### T KIRA, FT3 #### [facility] [address] [place] [address] Dr. Jessie Cheney NEUT # 12.0 103/ul Critically high 1.4-6.5 [facility] Comment on above: Performed By: #### T KIRA, FT3 #### [facility] [address] [place] [address] Dr. Jessie Cheeny Neutrophils/100 WBC (Bld) 81.3 % Critically high 43.0-75.0 [facility] Comment on above: Performed By: #### T KIRA, FT3 #### [facility] [address] [place] [address] Dr. Jessie Cheney Platelet mean volume (Bld) [Entitic vol] 11.0 fL Normal 9.5-13.5 [facility] Comment on above: Performed By: #### T KIRA, FT3 #### [facility] [address] [place] [address] Dr. Jessie Cheney PLT 307 103/ul Normal 150-450 [facility] Comment on above: Performed By: #### T , FT3 #### [facility] [address] [place] [address] Dr. Jessie Cheney RBC 3.09 106/ul Critically low 4.20-5.40 [facility] Comment on above: Performed By: #### T KIRA, FT3 #### [facility] [address] [place] [address] Dr. Jessie Cheney WBC 14.8 103/ul Critically high 4.0-11.0 [facility] Comment on above: Performed By: #### T , FT3 #### [facility] [address] [place] [address] Dr. Jessie Cheney PROF CHEM 8 (BAS METB)on Anion gap [Moles/Vol] 14.2 mmol/L Normal [facility] Comment on above: Performed By: #### B MP #### [facility] [address] [place] [address] Dr. Jessie Cheney Calcium [Mass/Vol] 9.6 mg/dL Normal 8.4-10.2 [facility] Comment on above: Performed By: #### B MP #### [facility] [address] [place] [address] Dr. Jessie Cheney Chloride [Moles/Vol] 103 mmol/L Normal 98-107 [facility] Comment on above: Performed By: #### B MP #### [facility] [address] [place] [address] Dr. Jessie Cheney CO2 [Moles/Vol] 23.0 mmol/L Normal 22.0-30.0 [facility] Comment on above: Performed By: #### B MP #### [facility] [address] [address] [address] Jessie Cheney Creatinine [Mass/Vol] 0.81 mg/dL Normal 0.52-1.04 [facility] Comment on above: Performed By: #### B MP #### [facility] [address] [address] [address] Jessie Cheney EGFR-AF TANZANIAN >60 Normal >=60 [facility] Comment on above: Performed By: #### B MP #### [facility] [address] [address] [address] Jessie Cheney EGFR-NON AF TANZANIAN >60 Normal >=60 [facility] Comment on above: Performed By: #### B MP #### [facility] [address] [place] [address] Dr. Jessie Cheney Glucose [Mass/Vol] 230 mg/dL Critically high 74-106 [facility] Comment on above: Performed By: #### B MP #### [facility] [address] [place] [address] Dr. Jessie Cheney Potassium [Moles/Vol] 4.2 mmol/L Normal 3.4-5.0 [facility] Comment on above: Performed By: #### B MP #### [facility] [address] [place] [address] Dr. Jessie Cheney Sodium [Moles/Vol] 136 mmol/L Critically low 137-145 [facility] Comment on above: Performed By: #### B MP #### [facility] [address] [place] [address] Dr. Jessie Cheney Urea nitrogen [Mass/Vol] 16.0 mg/dL Normal 7.0-17.0 [facility] Comment on above: Performed By: #### B MP #### [facility] [address] [place] [address] Dr. Jessie Cheney Urea nitrogen/Creatinine [Mass ratio] 19.8 mg/mg Normal [facility] Comment on above: Performed By: #### B MP #### [facility] [address] [address] [address] eJssie Cheney CBC AUTO DIFFon 06-15-2021 BASO # 0.1 103/ul Normal 0.0-0.1 [facility] Comment on above: Performed By: #### C BC #### [facility] [address] [address] [address] Jessie Cheney Basophils/100 WBC (Bld) 0.6 % Normal 0.2-2.0 [facility] Comment on above: Performed By: #### C BC #### [facility] [address] [address] [address] Jessie Cheney EO # 0.2 103/ul Normal 0.0-0.7 [facility] Comment on above: Performed By: #### C BC #### [facility] [address] [place] [address] Dr. Jessie Cheney Eosinophils/100 WBC (Bld) 2.1 % Normal 0.9-7.0 [facility] Comment on above: Performed By: #### C BC #### [facility] [address] [place] [address] Dr. Jessie Cheney Erythrocyte distribution width (RBC) [Ratio] 21.4 % Critically high 11.0-15.0 [facility] Comment on above: Performed By: #### C BC #### [facility] [address] [place] [address] Dr. Jessie Cheney Hematocrit (Bld) [Volume fraction] 25.4 % Critically low 36.0-48.0 [facility] Comment on above: Performed By: #### C BC #### [facility] [address] [place] [address] Dr. Jessie Cheney Hemoglobin (Bld) [Mass/Vol] 7.7 g/dL Critically low 12.0-16.0 [facility] Comment on above: Performed By: #### C BC #### [facility] [address] [place] [address] Dr. Jessie Cheney IG # 0.10 10e3/ul Critically high 0.00-0.03 [facility] Comment on above: Performed By: #### C BC #### [facility] [address] [place] [address] Dr. Jessie Cheney IG % 0.9 % Critically high 0.0-0.5 [facility] Comment on above: Performed By: #### C BC #### [facility] [address] [place] [address] Dr. Jessie Cheney LYMPH # 3.0 103/ul Normal 1.2-3.8 [facility] Comment on above: Performed By: #### C BC #### [facility] [address] [place] [address] Dr. Jessie Cheney Lymphocytes/100 WBC (Bld) 28.1 % Normal 20.5-60.0 [facility] Comment on above: Performed By: #### C BC #### [facility] [address] [place] [address] Dr. Jessie Cheney MANUAL DIFF REQ NO Normal [facility] Comment on above: Performed By: #### C BC #### [facility] [address] [place] [address] Dr. Jessie Cheney MCH (RBC) [Entitic mass] 24.8 pg Critically low 26.7-34.0 [facility] Comment on above: Performed By: #### C BC #### [facility] [address] [place] [address] Dr. Jessie Cheney MCHC (RBC) [Mass/Vol] 30.3 g/dL Normal 29.9-35.2 [facility] Comment on above: Performed By: #### C BC #### [facility] [address] [place] [address] Dr. Jessie Cheney MCV (RBC) [Entitic vol] 81.9 fL Normal 81.0-99.0 [facility] Comment on above: Performed By: #### C BC #### [facility] [address] [place] [address] Dr. Jessie Cheney MONO # 1.0 103/ul Critically high 0.3-0.8 [facility] Comment on above: Performed By: #### C BC #### [facility] [address] [place] [address] Dr. Jessie Cheney Monocytes/100 WBC (Bld) 9.2 % Normal 1.7-12.0 [facility] Comment on above: Performed By: #### C BC #### [facility] [address] [place] [address] Dr. Jessie Cheney NEUT # 6.3 103/ul Normal 1.4-6.5 [facility] Comment on above: Performed By: #### C BC #### [facility] [address] [place] [address] Dr. Jessie Cheney Neutrophils/100 WBC (Bld) 59.1 % Normal 43.0-75.0 [facility] Comment on above: Performed By: #### C BC #### [facility] [address] [place] [address] Dr. Jessie Cheney Platelet mean volume (Bld) [Entitic vol] 10.7 fL Normal 9.5-13.5 [facility] Comment on above: Performed By: #### C BC #### [facility] [address] [place] [address] Dr. Jessie Cheney PLT 261 103/ul Normal 150-450 [facility] Comment on above: Performed By: #### C BC #### [facility] [address] [place] [address] Dr. Jessie Cheney RBC 3.10 106/ul Critically low 4.20-5.40 [facility] Comment on above: Performed By: #### C BC #### [facility] [address] [place] [address] Dr. Jessie Cheney WBC 10.7 103/ul Normal 4.0-11.0 [facility] Comment on above: Performed By: #### C BC #### [facility] [address] [place] [address] Dr. Jessie Cheney DIRECT COOMBSon 06-15-2021 DIRECT DARINEL Negative Normal [facility] Comment on above: Performed By: #### C BC #### [facility] [address] [place] [address] Dr. Jessie Cheney HAPTOGLOBINon 12-28-2021 Haptoglobin 199 mg/dL Normal 42-346 [facility] Comment on above: Performed By: #### B MP #### [facility] [address] [address] [address] Jessie Cheney POINT OF CARE GLUCOSEon 12-2 Glucose [Mass/Vol] 117 mg/dL Critically high 74-106 [facility] Comment on above: Performed By: #### B MP #### [facility] [address] [place] [address] Dr. Jessie Cheney PROF CHEM 8 (BAS METB)on Anion gap [Moles/Vol] 10.4 mmol/L Normal [facility] Comment on above: Performed By: #### B MP #### [facility] [address] [place] [address] Dr. Jessie Cheney Calcium [Mass/Vol] 9.7 mg/dL Normal 8.4-10.2 [facility] Comment on above: Performed By: #### B MP #### [facility] [address] [place] [address] Dr. Jessie Cheney Chloride [Moles/Vol] 106 mmol/L Normal 98-107 [facility] Comment on above: Performed By: #### B MP #### [facility] [address] [place] [address] Dr. Jessie Cheney CO2 [Moles/Vol] 26.1 mmol/L Normal 22.0-30.0 [facility] Comment on above: Performed By: #### B MP #### [facility] [address] [place] [address] Dr. Jessie Cheney Creatinine [Mass/Vol] 0.75 mg/dL Normal 0.52-1.04 [facility] Comment on above: Performed By: #### B MP #### [facility] [address] [place] [address] Dr. Jessie Cheney EGFR-AF TANZANIAN >60 Normal >=60 [facility] Comment on above: Performed By: #### B MP #### [facility] [address] [place] [address] Dr. Jessie Cheney EGFR-NON AF TANZANIAN >60 Normal >=60 [facility] Comment on above: Performed By: #### B MP #### [facility] [address] [address] [address] Jessie Cheney Glucose [Mass/Vol] 108 mg/dL Critically high 74-106 [facility] Comment on above: Performed By: #### B MP #### [facility] [address] [address] [address] Jessie Cheney Potassium [Moles/Vol] 3.5 mmol/L Normal 3.4-5.0 [facility] Comment on above: Performed By: #### B MP #### [facility] [address] [address] [address] Jessie Chneey Sodium [Moles/Vol] 139 mmol/L Normal 137-145 [facility] Comment on above: Performed By: #### B MP #### [facility] [address] [place] [address] Dr. Jessie Cheney Urea nitrogen [Mass/Vol] 14.0 mg/dL Normal 7.0-17.0 [facility] Comment on above: Performed By: #### B MP #### [facility] [address] [address] [address] Jessie Cheney Urea nitrogen/Creatinine [Mass ratio] 18.7 mg/mg Normal [facility] Comment on above: Performed By: #### B MP #### [facility] [address] [address] [address] Jessie Cheney CBC AUTO DIFFon 06-14-2021 BASO # 0.1 103/ul Normal 0.0-0.1 [facility] Comment on above: Performed By: #### B MP #### [facility] [address] [address] [address] Jessie Cheney Basophils/100 WBC (Bld) 0.5 % Normal 0.2-2.0 [facility] Comment on above: Performed By: #### B MP #### [facility] [address] [address] [address] Jessie Cheney EO # 0.1 103/ul Normal 0.0-0.7 [facility] Comment on above: Performed By: #### B MP #### [facility] [address] [place] [address] Dr. Jessie Cheney Eosinophils/100 WBC (Bld) 1.1 % Normal 0.9-7.0 [facility] Comment on above: Performed By: #### B MP #### [facility] [address] [place] [address] Dr. Jessie Cheney Erythrocyte distribution width (RBC) [Ratio] 20.6 % Critically high 11.0-15.0 [facility] Comment on above: Performed By: #### B MP #### [facility] [address] [place] [address] Dr. Jessie Cheney Hematocrit (Bld) [Volume fraction] 25.2 % Critically low 36.0-48.0 [facility] Comment on above: Performed By: #### B MP #### [facility] [address] [place] [address] Dr. Jessie Cheney Hemoglobin (Bld) [Mass/Vol] 7.8 g/dL Critically low 12.0-16.0 [facility] Comment on above: Performed By: #### B MP #### [facility] [address] [place] [address] Dr. Jessie Cheney IG # 0.10 10e3/ul Critically high 0.00-0.03 [facility] Comment on above: Performed By: #### B MP #### [facility] [address] [place] [address] Dr. Jessie Cheney IG % 0.8 % Critically high 0.0-0.5 [facility] Comment on above: Performed By: #### B MP #### [facility] [address] [place] [address] Dr. Jessie Cheney LYMPH # 2.9 103/ul Normal 1.2-3.8 [facility] Comment on above: Performed By: #### B MP #### [facility] [address] [place] [address] Dr. Jessie Cheney Lymphocytes/100 WBC (Bld) 24.0 % Normal 20.5-60.0 [facility] Comment on above: Performed By: #### B MP #### [facility] [address] [place] [address] Dr. Jessie Cheney MANUAL DIFF REQ NO Normal [facility] Comment on above: Performed By: #### B MP #### [facility] [address] [place] [address] Dr. Jessie Cheney MCH (RBC) [Entitic mass] 24.9 pg Critically low 26.7-34.0 [facility] Comment on above: Performed By: #### B MP #### [facility] [address] [place] [address] Dr. Jessie Cheney MCHC (RBC) [Mass/Vol] 31.0 g/dL Normal 29.9-35.2 [facility] Comment on above: Performed By: #### B MP #### [facility] [address] [place] [address] Dr. Jessie Cheney MCV (RBC) [Entitic vol] 80.5 fL Critically low 81.0-99.0 [facility] Comment on above: Performed By: #### B MP #### [facility] [address] [place] [address] Dr. Jessie Cheney MONO # 1.1 103/ul Critically high 0.3-0.8 [facility] Comment on above: Performed By: #### B MP #### [facility] [address] [place] [address] Dr. Jessie Cheney Monocytes/100 WBC (Bld) 8.9 % Normal 1.7-12.0 [facility] Comment on above: Performed By: #### B MP #### [facility] [address] [place] [address] Dr. Jessie Cheney NEUT # 7.8 103/ul Critically high 1.4-6.5 [facility] Comment on above: Performed By: #### B MP #### [facility] [address] [place] [address] Dr. Jessie Cheney Neutrophils/100 WBC (Bld) 64.7 % Normal 43.0-75.0 [facility] Comment on above: Performed By: #### B MP #### [facility] [address] [address] [address] Jessie Cheney Platelet mean volume (Bld) [Entitic vol] 10.7 fL Normal 9.5-13.5 [facility] Comment on above: Performed By: #### B MP #### [facility] [address] [address] [address] Jessie Cheney PLT 248 103/ul Normal 150-450 [facility] Comment on above: Performed By: #### B MP #### [facility] [address] [address] [address] Jessie Cheney RBC 3.13 106/ul Critically low 4.20-5.40 [facility] Comment on above: Performed By: #### B MP #### [facility] [address] [place] [address] Dr. Jessie Cheney WBC 12.1 103/ul Critically high 4.0-11.0 [facility] Comment on above: Performed By: #### B MP #### [facility] [address] [place] [address] Dr. Jessie Cheney DIRECT COOMBSon 06-14-2021 DIRECT DARINEL Negative Normal [facility] Comment on above: Performed By: #### C BC #### [facility] [address] [place] [address] Dr. Jessie Cheney FERRITINon 06-14-2021 Ferritin [Mass/Vol] 117.0 ng/mL Normal 11.1-264.0 [facility] Comment on above: Performed By: #### T SH, FT3 #### [facility] [address] [place] [address] Dr. Jessie Cheney H PYLORI ANTIBODYon 06-14-20 21 H PYLORI Negative Normal NEGATIVE [facility] Comment on above: Performed By: #### H PYL #### [facility] [address] [place] [address] Dr. Jessie Cheney NM GI BLEEDon 06-14-2021 NM GI BLEED EXAMINATION: NM GI B LEED HISTORY: Acute upper gastrointestinal hemorrhage COMPARISON: No [...] ESTUARDO MALIK Date: 2021-06-14 11:06 Normal [facility] POINT OF CARE GLUCOSEon - Glucose [Mass/Vol] 290 mg/dL Critically high 74-106 [facility] Comment on above: Performed By: #### B MP #### [facility] [address] [place] [address] Dr. Jessie Cheney RETICULOCYTEon 06-14-2021 RETIC 2.96 % Normal 0.60-3.10 [facility] Comment on above: Performed By: #### B MP #### [facility] [address] [place] [address] Dr. Jessie Cheney VIT B12 AND FOLATEon 021 Cobalamin (Vitamin B12) [Mass/Vol] 364.0 pg/mL Normal 239.0-931. 0 [facility] Comment on above: Performed By: #### B MP #### [facility] [address] [place] [address] Dr. Jessie Cheney FOLATE 15.10 ng/mL Normal >=2.76 [facility] Comment on above: Performed By: #### B MP #### [facility] [address] [place] [address] Dr. Jessie Cheney CBC AUTO DIFFon 06-13-2021 BASO # 0.0 103/ul Normal 0.0-0.1 [facility] Comment on above: Performed By: #### C BC #### [facility] [address] [place] [address] Dr. Jessie Cheney Basophils/100 WBC (Bld) 0.2 % Normal 0.2-2.0 [facility] Comment on above: Performed By: #### C BC #### [facility] [address] [place] [address] Dr. Jessie Cheney EO # 0.0 103/ul Normal 0.0-0.7 [facility] Comment on above: Performed By: #### C BC #### [facility] [address] [place] [address] Dr. Jessie Cheney Eosinophils/100 WBC (Bld) 0.2 % Critically low 0.9-7.0 [facility] Comment on above: Performed By: #### C BC #### [facility] [address] [place] [address] Dr. Jessie Cheney Erythrocyte distribution width (RBC) [Ratio] 21.6 % Critically high 11.0-15.0 [facility] Comment on above: Performed By: #### C BC #### [facility] [address] [place] [address] Dr. Jessie Cheney Hematocrit (Bld) [Volume fraction] 19.4 % Critically low 36.0-48.0 [facility] Comment on above: Result Comment: test repeated critical value verified Performed By: #### C BC #### [facility] [address] [place] [address] Dr. Jessie Cheney Hemoglobin (Bld) [Mass/Vol] 6.1 g/dL Critically low 12.0-16.0 [facility] Comment on above: Result Comment: test repeated critical value verified Performed By: #### C BC #### [facility] [address] [place] [address] Dr. Jessie Cheney IG # 0.12 10e3/ul Critically high 0.00-0.03 [facility] Comment on above: Performed By: #### C BC #### [facility] [address] [place] [address] Dr. Jessie Cheney IG % 0.9 % Critically high 0.0-0.5 [facility] Comment on above: Performed By: #### C BC #### [facility] [address] [place] [address] Dr. Jessie Cheney LYMPH # 3.4 103/ul Normal 1.2-3.8 [facility] Comment on above: Performed By: #### C BC #### [facility] [address] [place] [address] Dr. Jessie Cheney Lymphocytes/100 WBC (Bld) 24.5 % Normal 20.5-60.0 [facility] Comment on above: Performed By: #### C BC #### [facility] [address] [place] [address] Dr. Jessie Cheney MANUAL DIFF REQ NO Normal The [facility] Comment on above: Performed By: #### C BC #### [facility] [address] [place] [address] Dr. Jessie Cheney MCH (RBC) [Entitic mass] 24.0 pg Critically low 26.7-34.0 [facility] Comment on above: Performed By: #### C BC #### [facility] [address] [place] [address] Dr. Jessie Cheney MCHC (RBC) [Mass/Vol] 31.4 g/dL Normal 29.9-35.2 [facility] Comment on above: Performed By: #### C BC #### [facility] [address] [place] [address] Dr. Jessie Cheney MCV (RBC) [Entitic vol] 76.4 fL Critically low 81.0-99.0 [facility] Comment on above: Performed By: #### C BC #### [facility] [address] [place] [address] Dr. Jsesie Cheney MONO # 1.3 103/ul Critically high 0.3-0.8 [facility] Comment on above: Performed By: #### C BC #### [facility] [address] [place] [address] Dr. Jessie Cheney Monocytes/100 WBC (Bld) 9.6 % Normal 1.7-12.0 [facility] Comment on above: Performed By: #### C BC #### [facility] [address] [place] [address] Dr. Jessie Cheney NEUT # 8.9 103/ul Critically high 1.4-6.5 [facility] Comment on above: Performed By: #### C BC #### [facility] [address] [place] [address] Dr. Jessie Cheney Neutrophils/100 WBC (Bld) 64.6 % Normal 43.0-75.0 [facility] Comment on above: Performed By: #### C BC #### [facility] [address] [place] [address] Dr. Jessie Cheney Platelet mean volume (Bld) [Entitic vol] 10.3 fL Normal 9.5-13.5 [facility] Comment on above: Performed By: #### C BC #### [facility] [address] [place] [address] Dr. Jessie Cheney PLT 246 103/ul Normal 150-450 [facility] Comment on above: Performed By: #### C BC #### [facility] [address] [place] [address] Dr. Jessie Cheney RBC 2.54 106/ul Critically low 4.20-5.40 [facility] Comment on above: Performed By: #### C BC #### [facility] [address] [place] [address] Dr. Jessie Cheney WBC 13.8 103/ul Critically high 4.0-11.0 [facility] Comment on above: Performed By: #### C BC #### [facility] [address] [place] [address] Dr. Jessie Cheney HEMOGLOBIN AND HEMATOCRITon 06-13-2021 Hematocrit (Bld) [Volume fraction] 26.5 % Critically low 36.0-48.0 [facility] Comment on above: Performed By: #### T KIRA, FT3 #### [facility] [address] [place] [address] Dr. Jessie Cheney Hemoglobin (Bld) [Mass/Vol] 8.4 g/dL Critically low 12.0-16.0 [facility] Comment on above: Performed By: #### T KIRA, FT3 #### [facility] [address] [place] [address] Dr. Jessie Cheney Hematocrit (Bld) [Volume fraction] 25.9 % Critically low 36.0-48.0 [facility] Comment on above: Performed By: #### B MP #### [facility] [address] [address] [address] Jessie Cheney Hemoglobin (Bld) [Mass/Vol] 8.0 g/dL Critically low 12.0-16.0 [facility] Comment on above: Performed By: #### B MP #### [facility] [address] [place] [address] Dr. Jessie Cheney CBC AUTO DIFFon 06-12-2021 BASO # 0.0 103/ul Normal 0.0-0.1 [facility] Comment on above: Performed By: #### B MP #### [facility] [address] [place] [address] Dr. eJssie Cheney Basophils/100 WBC (Bld) 0.2 % Normal 0.2-2.0 [facility] Comment on above: Performed By: #### B MP #### [facility] [address] [place] [address] Dr. Jessie Cheney EO # 0.0 103/ul Normal 0.0-0.7 [facility] Comment on above: Performed By: #### B MP #### [facility] [address] [place] [address] Dr. Jessie Cheney Eosinophils/100 WBC (Bld) 0.0 % Critically low 0.9-7.0 [facility] Comment on above: Performed By: #### B MP #### [facility] [address] [place] [address] Dr. Jessie Cheney Erythrocyte distribution width (RBC) [Ratio] 21.2 % Critically high 11.0-15.0 [facility] Comment on above: Performed By: #### B MP #### [facility] [address] [place] [address] Dr. Jessie Cheney Hematocrit (Bld) [Volume fraction] 25.7 % Critically low 36.0-48.0 [facility] Comment on above: Performed By: #### B MP #### [facility] [address] [place] [address] Dr. Jessie Cheney Hemoglobin (Bld) [Mass/Vol] 7.9 g/dL Critically low 12.0-16.0 [facility] Comment on above: Performed By: #### B MP #### [facility] [address] [place] [address] Dr. Jessie Cheney IG # 0.26 10e3/ul Critically high 0.00-0.03 [facility] Comment on above: Performed By: #### B MP #### [facility] [address] [place] [address] Dr. Jessie Cheney IG % 1.5 % Critically high 0.0-0.5 [facility] Comment on above: Performed By: #### B MP #### [facility] [address] [place] [address] Dr. Jessie Cheney LYMPH # 1.6 103/ul Normal 1.2-3.8 [facility] Comment on above: Performed By: #### B MP #### [facility] [address] [place] [address] Dr. Jessie Cheney Lymphocytes/100 WBC (Bld) 9.6 % Critically low 20.5-60.0 [facility] Comment on above: Performed By: #### B MP #### [facility] [address] [place] [address] Dr. Jessie Cheney MANUAL DIFF REQ NO Normal [facility] Comment on above: Performed By: #### B MP #### [facility] [address] [place] [address] Dr. Jessie Cheney MCH (RBC) [Entitic mass] 23.7 pg Critically low 26.7-34.0 [facility] Comment on above: Performed By: #### B MP #### [facility] [address] [place] [address] Dr. Jessie Cheney MCHC (RBC) [Mass/Vol] 30.7 g/dL Normal 29.9-35.2 [facility] Comment on above: Performed By: #### B MP #### [facility] [address] [place] [address] Dr. Jessie Cheney MCV (RBC) [Entitic vol] 76.9 fL Critically low 81.0-99.0 [facility] Comment on above: Performed By: #### B MP #### [facility] [address] [address] [address] Jessie Cheney MONO # 0.2 103/ul Critically low 0.3-0.8 [facility] Comment on above: Performed By: #### B MP #### [facility] [address] [address] [address] Jessie Cheney Monocytes/100 WBC (Bld) 1.0 % Critically low 1.7-12.0 [facility] Comment on above: Performed By: #### B MP #### [facility] [address] [place] [address] Dr. Jessie Cheney NEUT # 14.8 103/ul Critically high 1.4-6.5 [facility] Comment on above: Performed By: #### B MP #### [facility] [address] [place] [address] Dr. Jessie Cheney Neutrophils/100 WBC (Bld) 87.7 % Critically high 43.0-75.0 [facility] Comment on above: Performed By: #### B MP #### [facility] [address] [place] [address] Dr. Jessie Cheney Platelet mean volume (Bld) [Entitic vol] 10.5 fL Normal 9.5-13.5 [facility] Comment on above: Performed By: #### B MP #### [facility] [address] [place] [address] Dr. Jessie Cheney PLT 275 103/ul Normal 150-450 [facility] Comment on above: Performed By: #### B MP #### [facility] [address] [place] [address] Dr. Jessie Cheney RBC 3.34 106/ul Critically low 4.20-5.40 [facility] Comment on above: Performed By: #### B MP #### [facility] [address] [place] [address] Dr. Jessie Cheney WBC 16.9 103/ul Critically high 4.0-11.0 [facility] Comment on above: Performed By: #### B MP #### [facility] [address] [place] [address] Dr. Jessie Cheney BASO # 0.0 103/ul Normal 0.0-0.1 [facility] Comment on above: Performed By: #### B MP #### [facility] [address] [place] [address] Dr. Jessie Cheney Basophils/100 WBC (Bld) 0.3 % Normal 0.2-2.0 [facility] Comment on above: Performed By: #### B MP #### [facility] [address] [place] [address] Dr. Jessie Cheney EO # 0.1 103/ul Normal 0.0-0.7 [facility] Comment on above: Performed By: #### B MP #### [facility] [address] [place] [address] Dr. Jessie Cheney Eosinophils/100 WBC (Bld) 0.8 % Critically low 0.9-7.0 [facility] Comment on above: Performed By: #### B MP #### [facility] [address] [place] [address] Dr. Jessie Cheney Erythrocyte distribution width (RBC) [Ratio] 23.4 % Critically high 11.0-15.0 [facility] Comment on above: Performed By: #### B MP #### [facility] [address] [place] [address] Dr. Jessie Cheney Hematocrit (Bld) [Volume fraction] 20.2 % Critically low 36.0-48.0 [facility] Comment on above: Result Comment: Test Repeated. Critical Value Verified. Performed By: #### B MP #### [facility] [address] [place] [address] Dr. Jessie Cheney Hemoglobin (Bld) [Mass/Vol] 5.7 g/dL Critically low 12.0-16.0 [facility] Comment on above: Result Comment: Test Repeated. Critical Value Verified. Performed By: #### B MP #### [facility] [address] [place] [address] Dr. Jessie Cheney IG # 0.10 10e3/ul Critically high 0.00-0.03 [facility] Comment on above: Performed By: #### B MP #### [facility] [address] [place] [address] Dr. Jessie Cheney IG % 0.7 % Critically high 0.0-0.5 [facility] Comment on above: Performed By: #### B MP #### [facility] [address] [place] [address] Dr. Jessie Cheney LYMPH # 3.7 103/ul Normal 1.2-3.8 [facility] Comment on above: Performed By: #### B MP #### [facility] [address] [place] [address] Dr. Jessie Cheney Lymphocytes/100 WBC (Bld) 25.4 % Normal 20.5-60.0 [facility] Comment on above: Performed By: #### B MP #### [facility] [address] [place] [address] Dr. Jessie Cheney MANUAL DIFF REQ NO Normal [facility] Comment on above: Performed By: #### B MP #### [facility] [address] [place] [address] Dr. Jessie Cheney MCH (RBC) [Entitic mass] 20.3 pg Critically low 26.7-34.0 [facility] Comment on above: Performed By: #### B MP #### [facility] [address] [place] [address] Dr. Jessie Cheney MCHC (RBC) [Mass/Vol] 28.2 g/dL Critically low 29.9-35.2 [facility] Comment on above: Performed By: #### B MP #### [facility] [address] [place] [address] Dr. Jessie Cheney MCV (RBC) [Entitic vol] 71.9 fL Critically low 81.0-99.0 [facility] Comment on above: Performed By: #### B MP #### [facility] [address] [place] [address] Dr. Jessie Cheney MONO # 1.2 103/ul Critically high 0.3-0.8 [facility] Comment on above: Performed By: #### B MP #### [facility] [address] [place] [address] Dr. Jessie Cheney Monocytes/100 WBC (Bld) 7.8 % Normal 1.7-12.0 [facility] Comment on above: Performed By: #### B MP #### [facility] [address] [place] [address] Dr. Jessie Cheney NEUT # 9.5 103/ul Critically high 1.4-6.5 [facility] Comment on above: Performed By: #### B MP #### [facility] [address] [place] [address] Dr. Jessie Cheney Neutrophils/100 WBC (Bld) 65.0 % Normal 43.0-75.0 [facility] Comment on above: Performed By: #### B MP #### [facility] [address] [place] [address] Dr. Jessie Cheney Platelet mean volume (Bld) [Entitic vol] 10.6 fL Normal 9.5-13.5 [facility] Comment on above: Performed By: #### B MP #### [facility] [address] [place] [address] Dr. Jessie Cheney PLT 373 103/ul Normal 150-450 [facility] Comment on above: Performed By: #### B MP #### [facility] [address] [place] [address] Dr. Jessie Cheney RBC 2.81 106/ul Critically low 4.20-5.40 [facility] Comment on above: Performed By: #### B MP #### [facility] [address] [place] [address] Dr. Jessie Cheney WBC 14.7 103/ul Critically high 4.0-11.0 [facility] Comment on above: Performed By: #### B MP #### [facility] [address] [place] [address] Dr. Jessie Cheney [facility]on 05-20 SARS-CoV-2 (COVID-19) RNA RADHIKA+probe Ql (Unsp spec) Not detected Normal NOT DETECTED [facility] Comment on above: Result Comment: This test is not yet approved or cleared by the [place] FDA. When there are no FDA-approved or cleared tests available, and other criteria are met, FDA can make tests available under an emergency access mechanism called an Emergency Use Authorization (EUA). The EUA for this test is supported by the [employer] Teacher of Health and Human Service's (HHS's) declaration [...] SARS-CoV-2. Performed By: #### B MP #### [facility] [address] [place] [address] Dr. Jessie Cheney FREE T3on 06-12-2021 FREE T3 1.59 pg/mlL Critically low 2.77-5.27 [facility] Comment on above: Performed By: #### T SH, FT3 #### [facility] [address] [place] [address] Dr. Jessie Cheney FREE T4on 06-12-2021 Free T4 [Mass/Vol] 0.94 ng/dL Normal 0.78-2.19 [facility] Comment on above: Performed By: #### C BC #### [facility] [address] [place] [address] Dr. Jessie Cheney IRON AND TIBCon 06-12-2021 % SATURATION 11.2 % Normal [facility] Comment on above: Performed By: #### T SH, FT3 #### [facility] [address] [place] [address] Dr. Jessie Cheney Iron [Mass/Vol] 43.0 ug/dL Normal 37.0-170.0 [facility] Comment on above: Performed By: #### T SH, FT3 #### [facility] [address] [place] [address] Dr. Jessie Cheney TIBC DIRECT 384.0 ug/dL Normal 261.0-497. 0 [facility] Comment on above: Performed By: #### T SH, FT3 #### [facility] [address] [place] [address] Dr. Jessie Cheney LIVER PROFILEon 06-12-2021 Albumin [Mass/Vol] 3.2 g/dL Critically low 3.5-5.0 [facility] Comment on above: Performed By: #### C BC #### [facility] [address] [place] [address] Dr. Jessie Cheney Albumin/Globulin [Mass ratio] 1.1 {ratio} Normal [facility] Comment on above: Performed By: #### C BC #### [facility] [address] [place] [address] Dr. Jessie Cheney ALP [Catalytic activity/Vol] 95 U/L Normal 38-126 [facility] Comment on above: Performed By: #### C BC #### [facility] [address] [place] [address] Dr. Jessie Cheney ALT [Catalytic activity/Vol] 31 U/L Normal 9-52 [facility] Comment on above: Performed By: #### C BC #### [facility] [address] [place] [address] Dr. Jessie Cheney AST [Catalytic activity/Vol] 13 U/L Critically low 14-36 [facility] Comment on above: Performed By: #### C BC #### [facility] [address] [place] [address] Dr. Jessie Cheney BILI, CONJUGATED 0.1 mg/dL Normal 0.0-0.3 [facility] Comment on above: Performed By: #### C BC #### [facility] [address] [place] [address] Dr. Jessie Cheney Bilirubin [Mass/Vol] 0.2 mg/dL Normal 0.2-1.3 [facility] Comment on above: Performed By: #### C BC #### [facility] [address] [place] [address] Dr. Jessie Cheney Globulin (S) [Mass/Vol] 3.0 g/dL Normal [facility] Comment on above: Performed By: #### C BC #### [facility] [address] [place] [address] Dr. Jessie Cheney Protein [Mass/Vol] 6.2 g/dL Normal 6.1-8.2 [facility] Comment on above: Performed By: #### C BC #### [facility] [address] [place] [address] Dr. Jessie Cheney PROF CHEM 8 (BAS METB)on Anion gap [Moles/Vol] 17.2 mmol/L Normal [facility] Comment on above: Performed By: #### B MP #### [facility] [address] [place] [address] Dr. Jessie Cheney Calcium [Mass/Vol] 9.6 mg/dL Normal 8.4-10.2 [facility] Comment on above: Performed By: #### B MP #### [facility] [address] [place] [address] Dr. Jessie Cheney Chloride [Moles/Vol] 101 mmol/L Normal 98-107 [facility] Comment on above: Performed By: #### B MP #### [facility] [address] [place] [address] Dr. Jessie Cheney CO2 [Moles/Vol] 22.7 mmol/L Normal 22.0-30.0 [facility] Comment on above: Performed By: #### B MP #### [facility] [address] [place] [address] Dr. Jessie Cheney Creatinine [Mass/Vol] 1.10 mg/dL Critically high 0.52-1.04 [facility] Comment on above: Performed By: #### B MP #### [facility] [address] [place] [address] Dr. Jessie Cheney EGFR-AF TANZANIAN 59 mL/min/1.73m2 Critically low >=60 [facility] Comment on above: Performed By: #### B MP #### [facility] [address] [address] [address] Jessie Cheney EGFR-NON AF TANZANIAN 48 mL/min/1.73m2 Critically low >=60 [facility] Comment on above: Performed By: #### B MP #### [facility] [address] [address] [address] Jessie Cheney Glucose [Mass/Vol] 193 mg/dL Critically high 74-106 [facility] Comment on above: Performed By: #### B MP #### [facility] [address] [address] [address] Jessie Cheney Potassium [Moles/Vol] 3.9 mmol/L Normal 3.4-5.0 [facility] Comment on above: Performed By: #### B MP #### [facility] [address] [address] [address] Jessie Cheney Sodium [Moles/Vol] 137 mmol/L Normal 137-145 [facility] Comment on above: Performed By: #### B MP #### [facility] [address] [address] [address] Jessie Cheney Urea nitrogen [Mass/Vol] 40.0 mg/dL Critically high 7.0-17.0 [facility] Comment on above: Performed By: #### B MP #### [facility] [address] [address] [address] Jessie Cheney Urea nitrogen/Creatinine [Mass ratio] 36.4 mg/mg Normal [facility] Comment on above: Performed By: #### B MP #### [facility] [address] [address] [address] Jessie Cheney PROTIMEon 06-12-2021 INR Coag (PPP) [Relative time] 1.02 {INR} Normal [facility] Comment on above: Performed By: #### C BC #### [facility] [address] [address] [address] Jessie Cheney INR GUIDELINES SEE BELOW Normal [facility] Comment on above: Result Comment: SRAVANTHI RED INR: 2.0 - 3.0 CONDITIONS NOT LISTED BELOW 2.5 - 3.5 FOR PROSTHETIC HEART VALVE REPLACEMENT 2.5 - 3.5 RECURRENT THROMBOSIS Performed By: #### C BC #### [facility] [address] [place] [address] Dr. Jessie Cheney PT Coag (PPP) [Time] 11.0 s Normal 9.0-11.6 [facility] Comment on above: Performed By: #### C BC #### [facility] [address] [place] [address] Dr. Jessie Cheney PTTon 06-12-2021 aPTT Coag (Bld) [Time] 21.0 s Critically low 22.3-36.2 [facility] Comment on above: Performed By: #### C BC #### [facility] [address] [place] [address] Dr. Jessie Cheney TROPONIN, HIGH SENSITIVITYon 06-12-2021 HSTROP 8.4 pg/mL Normal 4.0-35.5 [facility] Comment on above: Result Comment: CUT- OFF POINTS HAVE BEEN ESTABLISHED BASED ON THE FOURTH UNIVERSAL DEFINITIONS OF MYOCARDIAL INFARCTION. THE UPPER REFERENCE LIMIT (URL) OF TROPONIN, DEFINED THE 99TH PERCENTILE OF cTnI DISTRIBUTION IN A REFERENCE POPULATION, HAS BEEN CONFIRMED THE DECISION THRESHOLD FOR [place] DIAGNOSIS. Performed By: #### B MP #### [facility] [address] [place] [address] Dr. Jessie Cheney TSHon 06-12-2021 TSH 1.183 uIU/mL Normal 0.470-4.68 0 [facility] Comment on above: Performed By: #### T SH, FT3 #### [facility] [address] [place] [address] Dr. Jessie Cheney TSH RANGE SEE BELOW Normal [facility] Comment on above: Result Comment: <0.3 4 UIU/ml HYPERTHYROID 0.34-5.60 UIU/ml EUTHYROID >5.60 UIU/ml HYPOTHYROID Performed By: #### T SH, FT3 #### [facility] [address] [place] [address] Dr. Jessie Cheney TYPE AND SCREENon 06-12-2021 TYPE AND SCREEN Negative Normal [facility] Comment on above: Performed By: #### T NS #### [facility] [address] [address] [address] Jessie Cheney Vital Signs Date Time Vital Sign Value Performing Clinician Facility 12-26-2023 11:13-0400 Body height 154.94 cm [facility] 12-26-2023 11:13-0400 Body mass index (BMI) [Ratio] 26.1 kg/m2 [facility] 12-26-2023 11:13-0400 Body weight 62.65 kg [facility] 12-26-2023 11:13-0400 Diastolic blood pressure 72 mm[Hg] [facility] 12-26-2023 11:13-0400 Heart rate 52 /min [facility] 12-26-2023 11:13-0400 Respiratory rate 12 /min [facility] 12-26-2023 11:13-0400 Systolic blood pressure 155 mm[Hg] [facility] 09-27-2023 11:44-0400 Body height 154.94 cm DO Ramin Ball Work Phone: [facility] 09-27-2023 11:44-0400 Body mass index (BMI) [Ratio] 25.6 kg/m2 DO Ramin Ball Work Phone: [facility] 09-27-2023 11:44-0400 Body weight 61.46 kg DO Ramin Ball Work Phone: [facility] 09-27-2023 11:44-0400 Diastolic blood pressure 61 mm[Hg] DO Ramin Ball Work Phone: [facility] 09-27-2023 11:44-0400 Heart rate 73 /min DO Ramin Ball Work Phone: [facility] 09-27-2023 11:44-0400 Respiratory rate 12 /min DO Ramin Ball Work Phone: [facility] 09-27-2023 11:44-0400 Systolic blood pressure 161 mm[Hg] DO Ramin Ball Work Phone: [facility] 08-24-2023 11:39-0500 Body height 154.94 cm DO Ramin Ball Work Phone: [facility] 08-24-2023 11:39-0500 Body mass index (BMI) [Ratio] 25.9 kg/m2 DO Ramin Ball Work Phone: [facility] 08-24-2023 11:39-0500 Body weight 62.14 kg DO Ramin Ball Work Phone: [facility] 08-24-2023 11:39-0500 Diastolic blood pressure 75 mm[Hg] DO Ramin Ball Work Phone: [facility] 08-24-2023 11:39-0500 Heart rate 102 /min DO Ramin Ball Work Phone: [facility] 08-24-2023 11:39-0500 Respiratory rate 12 /min DO Ramin Ball Work Phone: [facility] 08-24-2023 11:39-0500 Systolic blood pressure 127 mm[Hg] DO Ramin Ball Work Phone: [facility] 06-27-2023 14:00-0500 Body height 154.94 cm Ramin Ball Other [facility] 06-27-2023 14:00-0500 Body mass index (BMI) [Ratio] 27.02 kg/m2 Ramin Ball Other [facility] [employer] Other 06-27-2023 14:00-0500 Body weight 64.86 kg Ramin Ball Other [facility] 06-27-2023 14:00-0500 Diastolic blood pressure 60 mm[Hg] Ramin Ball Other [facility] 06-27-2023 14:00-0500 Respiratory rate 12 /min Ramin Ball Other [facility] [employer] Other 06-27-2023 14:00-0500 Systolic blood pressure 130 mm[Hg] Ramin Ball Other [facility] 03-27-2023 11:30-0400 Body height 154.94 cm Ramin Ball Other [employer] Other 03-27-2023 11:30-0400 Body mass index (BMI) [Ratio] 26.98 kg/m2 Ramin Ball Other [employer] Other 03-27-2023 11:30-0400 Body weight 64.77 kg Ramin Ball Other [employer] Other 03-27-2023 11:30-0400 Diastolic blood pressure 72 mm[Hg] Ramin Ball Other [employer] Other 03-27-2023 11:30-0400 Respiratory rate 12 /min Ramin Ball Other [employer] Other 03-27-2023 11:30-0400 Systolic blood pressure 199 mm[Hg] Ramin Ball Other [employer] Other 02-01-2023 13:07-0400 Diastolic blood pressure 54 mm[Hg] DO Ramin Ball Work Phone: [facility] 02-01-2023 13:07-0400 Heart rate 52 /min DO Ramin Ball Work Phone: [facility] 02-01-2023 13:07-0400 Respiratory rate 16 /min DO Ramin Ball Work Phone: [facility] 02-01-2023 13:07-0400 SaO2% (BldA) [Mass fraction] 97 % DO Ramin Ball Work Phone: [facility] 02-01-2023 13:07-0400 Systolic blood pressure 105 mm[Hg] DO Ramin Ball Work Phone: [facility] 01-30-2023 11:34-0400 Body temperature 97.9 [degF] DO Ramin Ball Work Phone: [facility] 01-13-2023 11:01-0400 Body temperature 97.6 [degF] DO Ramin Ball Work Phone: [facility] 01-13-2023 11:01-0400 Body weight 64.22 kg DO Ramin Ball Work Phone: [facility] 01-13-2023 11:01-0400 Diastolic blood pressure 75 mm[Hg] DO Ramin Ball Work Phone: [facility] 01-13-2023 11:01-0400 Heart rate 58 /min DO Ramin Ball Work Phone: [facility] 01-13-2023 11:01-0400 Respiratory rate 20 /min DO Ramin Ball Work Phone: [facility] 01-13-2023 11:01-0400 SaO2% (BldA) [Mass fraction] 97 % DO Ramin Ball Work Phone: [facility] 01-13-2023 11:01-0400 Systolic blood pressure 183 mm[Hg] DO Ramin Ball Work Phone: [facility] 12-23-2022 11:00-0400 Body height 154.94 cm Ramin Ball Other [facility] [employer] Other 12-23-2022 11:00-0400 Body mass index (BMI) [Ratio] 26.98 kg/m2 Ramin Ball Other [facility] [employer] Other 12-23-2022 11:00-0400 Body weight 64.77 kg Ramin Ball Other [facility] [employer] Other 12-23-2022 11:00-0400 Diastolic blood pressure 83 mm[Hg] Ramin Ball Other [facility] [employer] Other 12-23-2022 11:00-0400 Respiratory rate 12 /min Ramin Ball Other [employer] Other 12-23-2022 11:00-0400 Systolic blood pressure 173 mm[Hg] Ramin Ball Other [facility] [employer] Other 07-14-2022 09:57-0500 Body height 152.4 cm DO Ramin Ball Work Phone: [facility] 07-14-2022 09:57-0500 Body weight 63.1 kg DO Ramin Ball Work Phone: [facility] 07-14-2022 09:57-0500 Diastolic blood pressure 73 mm[Hg] DO Ramin Ball Work Phone: [facility] 07-14-2022 09:57-0500 Heart rate 61 /min DO Ramin Ball Work Phone: [facility] 07-14-2022 09:57-0500 Respiratory rate 20 /min DO Ramin Ball Work Phone: [facility] 07-14-2022 09:57-0500 SaO2% (BldA) [Mass fraction] 99 % DO Ramin Ball Work Phone: [facility] 07-14-2022 09:57-0500 Systolic blood pressure 173 mm[Hg] DO Ramin Ball Work Phone: [facility] 07-08-2022 14:30-0500 Body height 154.94 cm Ramin Ball Other [facility] [employer] Other 07-08-2022 14:30-0500 Body mass index (BMI) [Ratio] 26.75 kg/m2 Ramin Ball Other [facility] [employer] Other 07-08-2022 14:30-0500 Body weight 64.23 kg Ramin Ball Other [facility] [employer] Other 07-08-2022 14:30-0500 Diastolic blood pressure 62 mm[Hg] Ramin Ball Other [facility] [employer] Other 07-08-2022 14:30-0500 Respiratory rate 12 /min Ramin Ball Other [facility] [employer] Other 07-08-2022 14:30-0500 Systolic blood pressure 130 mm[Hg] Ramin Ball Other [facility] [employer] Other 09-13-2021 14:35-0400 Body temperature 98.1 [degF] DO Ramin Ball Work Phone: [facility] 09-13-2021 14:35-0400 Body weight 66.13 kg DO Ramin Ball Work Phone: [facility] 09-13-2021 14:35-0400 Diastolic blood pressure 56 mm[Hg] DO Ramin Ball Work Phone: [facility] 09-13-2021 14:35-0400 Heart rate 62 /min DO Ramin Ball Work Phone: [facility] 09-13-2021 14:35-0400 Respiratory rate 20 /min DO Ramin Ball Work Phone: [facility] 09-13-2021 14:35-0400 SaO2% (BldA) [Mass fraction] 97 % DO Ramin Ball Work Phone: [facility] 09-13-2021 14:35-0400 Systolic blood pressure 136 mm[Hg] DO Ramin Ball Work Phone: [facility] 06-28-2021 13:01-0500 Body height 152.4 cm DO Ramin Ball Work Phone: [facility] 06-24-2021 10:45-0500 Body height 154.94 cm Estuardo Epps Other [employer] [facility] [employer] Other 06-24-2021 10:45-0500 Body mass index (BMI) [Ratio] 27.39 kg/m2 Estuardo Epps Other [employer] Other 06-24-2021 10:39-4680 Body weight 65.77 kg Estuardo Epps Other [facility] [employer] Other Encounters Encounter Date Encounter Type Care Provider Facility Start: 03-13-2024 End: 03-13-2024 ambulatory [facility] Work Phone: Start: 03-13-2024 End: 03-13-2024 Patient encounter procedure [facility] Work Phone: Start: 02-06-2024 End: 02-06-[address] [facility] Work Phone: Start: 02-06-2024 End: 02-06-2024 Patient encounter procedure [facility] Work Phone: Start: 01-09-2024 Non-patient / Non-visit [facility] [employer] Work Phone: Start: 01-04-2024 End: 01-04-2024 ambulatory [facility] Work Phone: Start: 01-04-2024 End: 01-04-2024 Patient encounter procedure [facility] Work Phone: Start: 12-26-2023 End: 12-26-2023 ambulatory [facility] Work Phone: Start: 12-26-2023 End: 12-26-2023 Patient encounter procedure [facility] Work Phone: Start: 11-28-2023 End: 11-28-2023 ambulatory [facility] Work Phone: Start: 11-28-2023 End: 11-28-2023 Patient encounter procedure [facility] Work Phone: Start: 11-06-2023 Non-patient / Non-visit [facility] Work Phone: Start: 10-23-2023 End: 10-23-2023 ambulatory DO Ramin Ball Work Phone: [facility] Work Phone: Start: 10-23-2023 End: 10-23-2023 Patient encounter procedure DO Ramin Ball Work Phone: [facility] Work Phone: Start: 09-27-2023 End: 09-27-2023 ambulatory DO Ramin Ball Work Phone: [facility] Work Phone: Start: 09-27-2023 End: 09-27-2023 Patient encounter procedure DO Ramin Ball Work Phone: [facility] Work Phone: Start: 08-24-2023 End: 08-24-2023 Patient encounter procedure DO Ramin Ball Work Phone: [facility] Work Phone: Start: 08-14-2023 End: 08-14-2023 ambulatory Ramin Ball Facility:[facility] Start: 08-14-2023 End: 08-14-2023 Patient encounter procedure DO Ramin Ball Work Phone: [facility] Work Phone: Start: 08-09-2023 End: 08-09-2023 ambulatory Ti [facility] Facility:[facility] Start: 08-09-2023 End: 08-09-2023 ambulatory DO Ramin Ball Work Phone: [facility] Work Phone: Start: 08-09-2023 End: 08-09-2023 Departed Referred DO Ramin Ball Work Phone: [facility] Start: 08-07-2023 End: 08-07-2023 ambulatory Ramin Ball Facility:[facility] Start: 08-07-2023 End: 08-07-2023 ambulatory DO Ramin Ball Work Phone: [facility] Work Phone: Start: 08-07-2023 End: 08-07-2023 Patient encounter procedure DO Ramin De Paz Work Phone: [facility] Work Phone: Start: 08-01-2023 Non-patient / Non-visit DO Ramin De Paz Work Phone: [facility] [employer] Work Phone: Start: 07-21-2023 End: 07-21-2023 ambulatory Ramin De Paz Other [facility] [employer] Other Start: 07-21-2023 Telephone encounter Ramin De Paz [facility] Start: 07-20-2023 End: 07-20-2023 ambulatory Ramin De Paz Other [facility] [employer] Other Start: 07-20-2023 Telephone encounter Ramin De Paz [facility] Start: 07-19-2023 End: 07-19-2023 ambulatory Ramin De Paz Other [employer] Other Start: 07-19-2023 Telephone encounter Ramin De Paz [facility] Start: 07-13-2023 End: 07-13-2023 ambulatory Ramin De Paz Facility:[facility] Start: 07-13-2023 End: 07-13-2023 ambulatory DO Ramin De Paz Work Phone: [facility] Work Phone: Start: 07-13-2023 End: 07-13-2023 Patient encounter procedure DO Ramin De Paz Work Phone: [facility] [place] Work Phone: Start: 07-13-2023 Registered Recurring DO Aryan in [place] Work Phone: [facility] Work Phone: Start: 07-11-2023 End: 07-11-2023 ambulatory Ramin De Paz Other [employer] Other Start: 07-11-2023 Telephone encounter Ramin De Paz [facility] Start: 06-27-2023 End: 06-27-2023 ambulatory Ramin De Paz Other [employer] Other Start: 06-27-2023 Office outpatient visit 25 minutes Ramin Ball [facility] Start: 06-27-2023 End: 06-27-2023 Patient encounter procedure DO Ramin Ball Work Phone: [facility] Work Phone: Start: 06-14-2023 End: 06-14-2023 ambulatory Ramin De Paz Other [employer] Other Start: 06-14-2023 Nursing evaluation o f patient and report Ramin De Paz [facility] Start: 05-05-2023 End: 05-05-2023 ambulatory Ramin De Paz Other [employer] Other Start: 05-05-2023 Nursing evaluation o f patient and report Ramin De Paz [facility] Start: 03-27-2023 End: 03-27-2023 ambulatory Ramin De Paz Other [employer] Other Start: 03-27-2023 Office outpatient visit 25 minutes Ramin De Paz [facility] Start: 02-10-2023 End: 02-10-2023 ambulatory Ramin De Paz Other [employer] Other Start: 02-10-2023 Nursing evaluation o f patient and report Ramin De Paz [facility] Start: 02-08-2023 End: 02-08-2023 ambulatory Ramin Tarun Other [employer] Other Start: 02-08-2023 Telephone encounter Ramin De Paz [facility] Start: 01-13-2023 End: 01-13-2023 ambulatory DO Ramin Tarun Work Phone: [facility] Work Phone: Start: 01-13-2023 End: 01-13-2023 Registered Recurring DO Ramin De Paz Work Phone: [facility] Work Phone: Start: 01-05-2023 End: 01-05-2023 ambulatory Ramin De Paz Other [employer] Other Start: 01-05-2023 Telephone encounter Ramin De Paz [facility] Start: 12-23-2022 End: 12-23-2022 ambulatory Ramin De Paz Other [employer] Other Start: 12-23-2022 Patient encounter procedure Ramin De Paz [facility] Start: 12-19-2022 End: 12-19-2022 ambulatory Ramin De Paz Other [employer] Other Start: 12-19-2022 Telephone encounter Ramin De Paz [facility] Start: 11-23-2022 End: 11-23-2022 ambulatory Ramin De Paz Other [employer] Other Start: 11-23-2022 Nursing evaluation o f patient and report Ramin De Paz [facility] Start: 11-21-2022 End: 11-21-2022 ambulatory Ramin De Paz Other [employer] Other Start: 11-21-2022 Telephone encounter Ramin De Paz [facility] Start: 08-12-2022 End: 08-12-2022 ambulatory Ramin De Paz Other [employer] Other Start: 08-12-2022 Nursing evaluation o f patient and report Ramin De Paz [facility] Start: 07-14-2022 End: 07-14-2022 ambulatory DO Ramin De Paz Work Phone: [facility] Work Phone: Start: 07-14-2022 End: 07-14-2022 Registered Recurring DO Ramin De Paz Work Phone: [facility] Work Phone: Start: 07-11-2022 End: 07-11-2022 ambulatory DO Ramin Tarun Work Phone: [facility] Work Phone: Start: 07-11-2022 End: 07-11-2022 Patient encounter procedure DO Ramin Tarun Work Phone: [facility] [place] Work Phone: Start: 07-11-2022 Registered Recurring DO Aryan in [place] Work Phone: [facility] Work Phone: Start: 07-08-2022 End: 07-08-2022 ambulatory Ramin De Paz Other [employer] Other Start: 07-08-2022 Office outpatient visit 25 minutes [facility] Start: 05-31-2022 End: 05-31-[address] RAMIN DE PAZ Facility:[facility] Start: 05-30-2022 End: 05-31-[address] RAMIN DE PAZ Facility:[facility] Start: 03-15-2022 End: 03-16-[address] RAMIN DE PAZ Facility:[facility] Start: 01-10-2022 End: 01-10-2022 Registered Recurring DO Ramin De Paz [facility] Start: 01-07-2022 End: 01-07-[address] RAMIN DE PAZ Facility:[facility] Start: 12-22-2021 Adult health examination Ramin De Paz Other [employer] Other Start: 08-18-2021 End: 08-19-[address] RAMIN DE PAZ Facility:[facility] Start: 08-17-2021 End: 08-17-[address] RAMIN DE PAZ Facility:[facility] Start: 07-26-2021 End: 07-27-[address] RAMIN DE PAZ Facility:[facility] Start: 07-09-2021 End: 07-16-[address] RAMIN DE PAZ Facility:[facility] Start: 06-24-2021 End: 06-24-2021 ambulatory Estuardo Epps Other [employer] Other Start: 06-24-2021 Office outpatient visit 25 minutes Estuardo Epps [facility] Start: 06-21-2021 End: 06-22-[address] RAMIN DE PAZ Facility:[facility] Start: 06-21-2021 End: 06-21-2021 Pre-procedure evaluation check Ramin De Paz Other [employer] Other Start: 06-17-2021 End: 06-17-[address] RAMIN DE PAZ Facility:[facility] Start: 06-12-2021 End: 06-16-[address] RAMIN DE PAZ Facility:[facility] Start: 05-04-2021 Chart abstracting Chip lackey MD Work Phone: Hematology/Oncology Start: 09-19-2016 End: 09-20-2016 Patient encounter procedure JOSH GALLEGO Facility:[facility] Procedures Date Procedure Procedure Detail Performing Clinician Start: 08-14-2023 Positron emission tomography with computed tomography DO Ramin De Paz Work Phone: Start: 02-04-2019 Screening for malign ant neoplasm of colon Ramin De Paz Other Start: 07-21-2018 Screening for osteoporosis Ramin De Paz Other Start: 06-08-2015 Screening for malign ant neoplasm of colon Ramin De Paz Other Start: 06-08-2015 Screening mammography B enjamin Tarun Other Depression screening Benjami n Tarun Other Screening for malign ant neoplasm of breast Ramin De Paz Other Plan of Treatment Date Care Activity Detail Author Start: 01-31-2023 End: 02-01-2023 [facility] Start: 01-30-2023 [facility] Start: 01-27-2023 End: 01-27-2023 [facility] Start: 01-24-2023 [facility] Start: 02-17-2021 Influenza vaccination INFLUENZA (#1) [facility] Start: 2010 ADVANCE DIRECTIVE DISCUSSION ADVANCE DIRECTIVE DISCUSSION [facility] Start: 2010 BONE DENSITY BONE DENSITY [facility] Start: 2010 PNEUMOVAX AGE 65 AND OVER WITH 5YR LOOKBACK (#1) PNEUMOVAX AGE 65 AND OVER WITH 5YR LOOKBACK (#1) [facility] Start: 11-13-1995 SHINGRIX VACCINE (1 of 2) SHINGRIX VACCINE (1 of 2) [facility] Start: 1990 COLOGUARD (FIT-DNA) COLOGUARD (FIT-DNA) [facility] Start: 1990 Colonoscopy COLONOSCOPY [facility] Start: 1990 COLORECTAL CANCER SCREENING COLORECTAL CANCER SCREENING [facility] Start: [address] COLONOGRAPHY [facility] Start: 1990 DIABETES SCREEN DIABETES SCREEN [facility] Start: 1990 FECAL OCCULT BLOOD FECAL OCCULT BLOOD [facility] Start: 1990 LIPID SCREEN LIPID SCREEN [facility] Start: 1990 SIGMOIDOSCOPY SIGMOIDOSCOPY [facility] Start: 1964 Urine microalbumin profile DTAP,TDAP,TD (1 - Tdap) [facility] Start: 11-13-1963 HEPATITIS C SCREENING HEPATITIS C SCREENING [facility] Start: 1957 Adult depression screening assessment DEPRESSION SCREENING [facility] Start: 1957 COVID-19 VACCINE (1) [facility] Comprehensive metabo lic 1999 panel - Serum or Plasma [facility] Work Phone: Comprehensive metabo lic 1999 panel - Serum or Plasma [facility] Comprehensive metabo lic 1999 panel - Serum or Plasma [facility] Comprehensive metabo lic 1999 panel - Serum or Plasma [facility] Comprehensive metabo lic 1999 panel - Serum or Plasma [facility] Ferritin [Mass/volum e] in Serum or Plasma [facility] Work Phone: Ferritin [Mass/volum e] in Serum or Plasma [facility] Ferritin [Mass/volum e] in Serum or Plasma [facility] Microalbumin [Mass/volume] in Urine [facility] Immunizations Immunization Date Immunization Notes Care Provider Gabriella hernandez 04-01-2022 influenza virus vaccine, split virus (incl. purified surface antigen) Ramin De Paz Other [facility] [employer] Other 04-01-2022 influenza virus vaccine, unspecified formulation DO Ramin De Paz Work Phone: [facility] 04-01-2022 influenza, high dose seasonal, preservative-free Ramin De Paz Other [facility] [employer] Other 04-21-2021 influenza virus vaccine, split virus (incl. purified surface antigen) Ramin De Paz Other [facility] [employer] Other 04-21-2021 influenza virus vaccine, unspecified formulation DO Ramin De Paz Work Phone: [facility] 04-15-2020 influenza virus vaccine, split virus (incl. purified surface antigen) Ramin De Paz Other [facility] [employer] Other 04-15-2020 influenza virus vaccine, unspecified formulation DO Ramin De Paz Work Phone: [facility] 04-02-2019 influenza virus vaccine, split virus (incl. purified surface antigen) Ramin De Paz Other [facility] [employer] Other 04-02-2019 influenza virus vaccine, unspecified formulation DO Ramin De Paz Work Phone: [facility] 05-02-2018 influenza virus vaccine, split virus (incl. purified surface antigen) Ramin De Paz Other [facility] [employer] Other 05-02-2018 influenza virus vaccine, unspecified formulation DO Ramin De Paz Work Phone: [facility] 04-23-2018 influenza virus vaccine, split virus (incl. purified surface antigen) Ramin De Paz Other [facility] [employer] Other 04-23-2018 influenza virus vaccine, unspecified formulation DO Ramin De Paz Work Phone: [facility] 01-31-2018 pneumococcal polysaccharide vaccine, 23 valent Ramin De Paz Other [facility] 03-21-2016 influenza virus vaccine, split virus (incl. purified surface antigen) Ramin De Paz Other [facility] [employer] Other 03-21-2016 influenza virus vaccine, unspecified formulation DO Ramin De Paz Work Phone: [facility] 03-27-2015 pneumococcal conjuga te vaccine, 13 valent Ramin De Paz Other [facility] 03-20-2013 tetanus and diphther ia toxoids, adsorbed, preservative free, for adult use (5 Lf of tetanus toxoid and 2 Lf of diphtheria toxoid) Ramin De Paz Other [facility] Payers Date Payer Category Payer Self-pay [id number] 2019 Medicare HUMANA MEDICARE HU[employer]NA MEDICARE PPO [id number] 2019-Present [id number] [place] [address] PPO [id number] 1959 Unknown [id number] 1945 Unknown [id number] 1945 Unknown [id number] 2..[id number] 1945 Unknown [id number] [id number]3 1945 Unknown [id number] 2.16.840.1.114019.3.579.2.593 1945 Unknown [id number] 2.16.840.1.184173.3.579.2.593 1945 Unknown [id number] 2.16.840.1.342378.3.579.2.593 1945 Unknown [id number] 2.16.840.1.756073.3.579.2.593 1945 Unknown [id number] 2.16.840.1.198755.3.579.2.593 1945 Unknown [id number] 2.16.840.1.382889.3.579.2.593 1945 Unknown [id number] 2.16.840.1.282114.3.579.2.593 1945 Unknown [id number] 2.16.840.1.033776.3.579.2.593 1945 Unknown [id number] 2.16.840.1.223220.3.579.2.593 Medicare [id number] [id number] Unknown [id number] 2.16.840.1.899922.3.579.2.531 Unknown [id number] 2.16.840.1.453527.3.579.2.531 Unknown [id number] 2.16.840.1.187028.3.579.2.531 Unknown [id number] [id number]1 Unknown [id number] Social History Date Type Detail Facility Start: 05-04-2021 End: 06-27-2023 Tobacco smoking status RIIS Ex-smoker [facility] Start: 1945 Sex Assigned At Not on file C [facility] Sex Assigned At Sex Assigned At Bir th [employer] Other Start: 1945 Sex Assigned At Female F [facility] Medical Equipment Procedure Code Equipment Code Equipment Origin al Text Equipment Identifier Dates Capsule endoscopy, for patency of lumen evaluation Video capsule endoscopy system [id number] FDA Start: 06-30-2021 Goals Date Patient Goal Desired Activity /State Clinical Notes 06-24-2021 to 07-21-2023 Note Date & Type Note Facility 07-21-2023 Evaluation note Encounter Date Diagnosis Assessment Notes Jul, Type 2 diabetes mellitus with hyperglycemia , without long-term current use of insulin (ICD-10 - E11.65) [employer] Other 01-31-2024 Evaluation note* Encounter Date Diagnosis Assessment Notes Treatment Notes Treatment Clinical Notes Jun, Type 2 diabetes mellitus with hyperglycemia, without long-term current use of insulin (ICD-10 - E11.65) [employer] Other 01-09-2024 Evaluation note* Encounter Date Diagnosis [...] anemia (ICD-10 - D51.0) Continue B12 supplementation [employer] Other 12-27-2023 Evaluation note* Encounter Date Diagnosis Assessment Notes Treatment Notes Treatment Clinical Notes May, Pernicious anemia (ICD-10 - D51.0) [employer] Other 11-17-2023 Evaluation note* Encounter Date Diagnosis Assessment Notes Treatment Notes Treatment Clinical Notes Apr, Pernicious anemia (ICD-10 - D51.0) [employer] Other 10-09-2023 Evaluation note* Encounter Date Diagnosis [...] (ICD-10 - D51.0) Continue B12 injections monthly [employer] Other 08-25-2023 Evaluation note* Encounter Date Diagnosis Assessment Notes Treatment Notes Treatment Clinical Notes Jan, Pernicious anemia (ICD-10 - D51.0) [employer] Other 07-20-2023 Evaluation note* Encounter Date Diagnosis Assessment Notes Treatment Notes Treatment Clinical Notes Dec, Stage 4 chronic kidney disease (ICD-10 - N18.4) [employer] Other 07-20-2023 Evaluation note* Encounter Date Diagnosis Assessment Notes Treatment Notes Treatment Clinical Notes Dec, Primary hypertension (ICD-10 - I10) Dec, Stage 4 chronic kidney disease (ICD-10 - N18.4) [employer] Other 07-07-2023 Evaluation note* Encounter Date Diagnosis [...] prevent callus formation.Fall precautions. Dec, Atherosclerosis of [place] artery of left lower extremity with intermittent [...] - E55.9) Dec, Other s/p partial thyroidectomy [employer] Other 07-03-2023 Evaluation note* Encounter Date Diagnosis Assessment Notes Treatment Notes Treatment Clinical Notes Dec, Atherosclerosis of [place] artery of left lower extremity with intermittent claudication (ICD-10 - I70.212) [employer] Other 06-07-2023 Evaluation note* Encounter Date Diagnosis Assessment Notes Treatment Notes Treatment Clinical Notes Nov, Pernicious anemia (ICD-10 - D51.0) [employer] Other 02-24-2023 Evaluation note* Encounter Date Diagnosis Assessment Notes Treatment Notes Treatment Clinical Notes Jul, Pernicious anemia (ICD-10 - D51.0) [employer] Other 01-31-2023 Progress note Author Tatiana Christianson [facility] July 19, 2022 9:00am Note Date/Time July 14, 2022 1 0:22am [facility] at [address] [address] Hem/Onc Follow Up Note - OP Signed Patient: Maame Velasco MR#: [id number] : 1945 Acct:[id number] Age/Sex: 76 / F Type: REG RCR Copies to: DO Leo Calderon MD~ Subjective Date/Time of Service: Date of Service: 07/14/2022 Time of Service: 10:20 Chief Complaint: Patient is here for a 6 month follow up with labs for review. No concerns voiced at this time. HPI: 75-year-old female with a history of anemia previously followed by [facility]. She presented to the emergency room on [...] with Dr. Epps. 07/12/20 She was at [facility] and got venofer. She got premedication with a steroid because she had a slight reaction to her venofer in the hospital. She did fine when she got the iron with the premedications. She had her iron at [place] and then came here to get labs [facility] on the same day. her hb 12.8. [...] % (Auto) 60.5, Lymph % (Auto) 27.7, Bennett % (Auto) 8.0, Eos % (Auto) 3.1, Baso % (Auto) 0.7, Nucleat RBC Rel Count 0.1, Neut # (Auto) 5.8, Lymph # (Auto) 2.6, Bennett # (Auto) 0.8, Eos # (Auto) 0.3, [...] for coordination of care (as documented) and oddh-ml-hrik counseling of patient and/or family. Dictated By: Tatiana Christianson APRN DD/ 1020 Signed By: <Electronically signed by MARY ALICE Christianson> 07/19/22 0900 [facility] Work Phone: 1(760) 268-691601-20-2023 Evaluation note* Encounter Date Diagnosis Assessment Notes [...] and feet daily for blisters and ulcerations. [employer] Other 03-28-2022 Progress note Author Jarrett Loyola [facility] September 13, 2021 2:57pm Note Date/Time September 13, 2021 2:5 3pm [facility] [place] [address] Hem/Onc Follow Up Note - OP Signed Patient: Maame Velasco MR#: [id number] : 1945 Acct:[id number] Age/Sex: 75 / F Type: REG RCR [...] a history of anemia previously followed by [facility]. She presented to the emergency room on [...] with Dr. Epps. 07/12/20 She was at [facility] and got venofer. She got premedication with a steroid because she had a slight reaction to her venofer in the hospital. She did fine when she got the iron with the premedications. She had her iron at [place] and then came here to get labs [facility] on the same day. her hb 12.8. [...] for coordination of care (as documented) and bigt-id-zmcm counseling of patient and/or family. [facility] - Medical History Medical History: Medical History [...] % (Auto) 56.4, Lymph % (Auto) 30.4, Bennett % (Auto) 9.4, Eos % (Auto) 3.2, Baso % (Auto) 0.6, Neut # (Auto) 4.9, Lymph # (Auto) 2.6, Bennett # (Auto) 0.8, Eos # (Auto) 0.3, [...] by Jarrett Loyola II, DO> 09/13/21 1457 [facility] Work Phone: 1(300) 180-423902-21-2022 Progress note Author Cora Gaming [facility] August 09, 2021 3:16pm Note Date/Time August 09, 2021 2:57pm [facility] [place] [address] Hem/Onc Follow Up Note - OP Signed Patient: Maame Velasco MR#: [id number] : 1945 Acct:[id number] Age/Sex: 75 / F Type: REG RCR Copies to: DO Leo Calderon MD Timothy J Adamowicz, II, DO~ [...] patient states that she got iron at [facility] 3 weeks ago. HPI: 75-year-old female with a history of anemia previously followed by [facility]. She presented to the emergency room on [...] with Dr. Epps. 07/12/20 She was at [facility] and got venofer. She got premedication with a steroid because she had a slight reaction to her venofer in the hospital. She did fine when she got the iron with the premedications. She had her iron at [place] and then came here to get labs [facility] on the same day. her hb 12.8. [...] for coordination of care (as documented) and xyfy-gk-ltmi counseling of patient and/or family. [facility] - Medical History Medical History: Medical History [...] <Electronically signed by MARY ALICE Gaming> 08/09/21 1516 [facility] Work Phone: [phone]) 691-174501-24-2022 Progress note Author Jarrett Loyola [facility] July 12, 2021 1:33pm Note Date/Time July 12, 2021 1 :24pm [facility] at [address] [address] Hem/Onc Follow Up Note - OP Signed Patient: Maame Velasco MR#: [id number] : 1945 Acct:[id number] Age/Sex: 75 / F Type: REG RCR [...] more dose iv iron already scheduled at [place]. . check cbc, cmp, iron, ferritin, iron saturation prior to f/u. - History of Present Illness Chief Complaint: Patient is here for a 2 week follow up. She got iron last Monday at [facility]. She states she will get another dose this coming Monday. HPI: 75-year-old female with a history of anemia previously followed by [facility]. She presented to the [...] with Dr. Epps. 07/12/20 She was at [facility] and got venofer. She got premedication with a steroid because she had a slight reaction to her venofer in the hospital. She did fine when she got the iron with the premedications. She had her iron at [place] and then came here to get labs [facility] on the same day. her hb 12.8. [...] for coordination of care (as documented) and vcna-ea-woxt counseling of patient and/or family. [facility] - Medical History Medical History: Medical History [...] % (Auto) 85.3, Lymph % (Auto) 12.3, Bennett % (Auto) 1.7, Eos % (Auto) 0.3, Baso % (Auto) 0.4, Neut # (Auto) 7.0, Lymph # (Auto) 1.0, Bennett # (Auto) 0.1, Eos # (Auto) 0.0, [...] 1321 Signed By: <Electronically signed by Jarrett Looyla II, DO> 07/12/21 1333 [facility] Work Phone: [phone]) 322-399701-10-2022 Progress note Author Jarrett Loyloa [facility] June 28, 2021 3:36pm Note Date/Time June 28, 2021 1 :28pm [facility] [place] [id number] Hem/Onc Follow Up Note - OP Signed Patient: Maame Velasco MR#: [id number] : 1945 Acct:[id number] Age/Sex: 75 / F Type: REG RCR Copies to: DO Leo Calderon MD~ Date of Service: 06/28/2021 Time of [...] anemia. She was last seen at [facility] 06/15/21 while inpatient. Patient has questions about resuming Plavix and Aspirin. No other concerns voiced at this time. HPI: 75-year-old female with a history of anemia previously followed by [facility]. She presented to the emergency room on [...] for coordination of care (as documented) and gdrg-qs-bmko counseling of patient and/or family. [facility] - Medical History Medical History: Medical History [...] by Jarrett Loyola II, DO> 06/28/21 1536 [facility] Work Phone: [phone] 359-727301-06-2022 Evaluation note* Encounter Date Diagnosis Assessment Notes Treatment Notes Treatment Clinical Notes Jun, Iron deficiency anemia (ICD-10 - D50.9) PROCEED WITH CAPSULE ENDOSCOPY Jun, Gastric AVM (ICD-10 - K31.819) [facility] [employer] Other Evaluation note* Diagnosis Onset Date Resolution Status Iron deficiency anemia acute [facility] Work Phone: Evaluation noteNo [facility] [employer] Other Evaluation note* Diagnosis Onset Date Resolution Status CKD (chronic kidney disease) stage 3, GFR 30-59 ml/min acute Hypercalcemia acute Hypertension acute Iron deficiency anemia acute [facility] Work Phone: Evaluation note* Diagnosis Onset Date Resolution Status Hypercalcemia acute Hypertension acute Iron deficiency anemia acute Cerebral atherosclerosis acu te Chronic kidney disease acute Diabetes mellitus with hyperglycemia acute Hypertension acute Mass of left lung acute Nicotine dependence, cigarettes, in remission acute Cerebral atherosclerosis acu te Chronic kidney disease acute Diabetes mellitus with hyperglycemia acute Hypertension acute Mass of left lung acute Nicotine dependence, cigarettes, in remission acute [facility] Work Phone: Evaluation note* Diagnosis Onset Date Resolution Status Cerebral atherosclerosis acu te Chronic kidney disease acute Diabetes mellitus with hyperglycemia acute Hypertension acute Mass of left lung acute Nicotine dependence, cigarettes, in remission acute Cerebral atherosclerosis acu te Chronic kidney disease acute Diabetes mellitus with hyperglycemia acute Hypertension acute Mass of left lung acute Nicotine dependence, cigarettes, in remission acute [facility] Work Phone: Evaluation note* Diagnosis Onset Date Resolution Status Cerebral atherosclerosis acu te Chronic kidney disease acute Diabetes mellitus with hyperglycemia acute Hypertension acute Mass of left lung acute Nicotine dependence, cigarettes, in remission acute [facility] Work Phone: Evaluation note* Diagnosis Onset Date Resolution Status Cerebral atherosclerosis acu te Chronic kidney disease acute Diabetes mellitus with hyperglycemia acute Hypertension acute Mass of left lung acute Nicotine dependence, cigarettes, in remission acute Cerebral atherosclerosis acu te Chronic kidney disease acute Diabetes mellitus with hyperglycemia acute Hypercalcemia acute Hypertension acute Iron deficiency anemia acute Mass of left lung acute Nicotine dependence, cigarettes, in remission acute Medicare annual wellness visit, subsequent noneactive [facility] Work Phone: Evaluation note* Diagnosis Onset Date Resolution Status Cerebral atherosclerosis acu te Chronic kidney disease acute Diabetes mellitus with hyperglycemia acute Hypercalcemia acute Hypertension acute Iron deficiency anemia acute Mass of left lung acute Nicotine dependence, cigarettes, in remission acute Medicare annual wellness visit, subsequent noneactive Mammogram declined noneactiv e [facility] Work Phone: Evaluation note* Diagnosis Onset Date Resolution Status Cerebral atherosclerosis acu te Chronic kidney disease acute Diabetes mellitus with hyperglycemia acute Hypercalcemia acute Hypertension acute Iron deficiency anemia acute Mass of left lung acute Nicotine dependence, cigarettes, in remission acute Medicare annual wellness visit, subsequent noneactive Mammogram declined noneactiv e Pernicious anemia acute [facility] Work Phone: History general Narrative - Reported* Type Description Date Medical History DM II Medical History hyperlipidemia Medical History HTN Medical History GERD Medical History mini stroke [employer] Other History general Narrative - Reported* Type [...] BX 07/2006 Hospitalization History SEE SURGICAL HX [employer] Other History general Narrative - Reported* Type [...] BX 07/2006 Hospitalization History SEE SURGICAL HX [employer] Other Progress note Author Jarrett Loyola [facility] January 13, 2023 11:29am Note Date/Time January 13, 2023 11:2 2am [facility] [place] [address] Hem/Onc Follow Up Note - OP Signed Patient: Maame Velasco MR#: [id number] : 1945 Acct:[id number] Age/Sex: 77 / F Type: REG RCR [...] month follow up with labs for review. Amys voiced at this time. HPI: 75-year-old female with a history of anemia previously followed by [facility]. She presented to the emergency room on [...] with Dr. Epps. 07/12/20 She was at [facility] and got venofer. She got premedication with a steroid because she had a slight reaction to her venofer in the hospital. She did fine when she got the iron with the premedications. She had her iron at [place] and then came here to get labs [facility] on the same day. her hb 12.8. [...] is no longer eating popcorn by the bagMetaJures Hgb- 12.4; Iron saturation - 19.3%; ferritin- [...] he now follows with Dr. Grace at [facility]. - Physical Exam ECOG PS: 0 [...] for coordination of care (as documented) and ffum-ya-tolz counseling of patient and/or family. [facility] - Medical History Medical History: Medical History [...] 3.8, Globulin (PEP) 3.1, Albumin/Globulin (PEP) 1.2, Muadg-8-Hqtsldzbd 0.3, Qnqhz-8-Frwgcodhw 1.1 H,Beta Globulins 0.9, Gamma Globulins 0.9, M-Gabriel Comment:, PEP Note , IgG 826, IgA 60 L, IgM 61, Serum Immunofixation Comment:, Free Alexander LC, Quant 42.6 H, Free Lambda LC, Quant 19.4, Free Alexander/Lambda Ratio 2.20 H 01/10/23 11:52: PHA Creatinine [...] % (Auto) 62.3, Lymph % (Auto) 25.3, Bennett % (Auto) 8.6, Eos % (Auto) 3.1, Baso % (Auto) 0.7, Nucleat RBC Rel Count 0.1, Neut # (Auto) 5.3, Lymph # (Auto) 2.2, Bennett # (Auto) 0.7, Eos # (Auto) 0.3, [...] by Jarrett Loyola II, DO> 01/13/23 1129 [facility] Work Phone: Summary Purpose Family History Relationship [...] Unknown Heart disease Unknown Diabetes mellitus Unknown Relationship Condition Age at Onset Recorded Date/T jesus alberto father Unknown Malignant neoplasm Unknown Malignant neoplasm of urinary bladder Unk nown Not Specified Unknown Heart disease Unknown Diabetes mellitus Unknown Relationship Condition Age at Onset Recorded Date/T jesus alberto father Unknown Malignant neoplasm Unknown Malignant neoplasm of urinary bladder Unk nown mother Unknown Heart disease Unknown Diabetes mellitus Unknown Advance Directives Advance Directive [...] anemia w/ GI blood loss E11.65 r91.8 Unknown Reason for Visit CKD (chronic kidney disease) stage 3, GFR 30-59 ml/min Hypercalcemia Hypertension Iron deficiency anemia Chief Complaint Iron deficiency anem ia w/ GI blood loss E11.65 r91.8 Unknown r91.8 discussion 3 month follow up Reason for Visit Hypercalcemia Hypertension Iron deficiency anemia Cerebral atherosclerosis Chronic kidney disease Diabetes mellitus with hyperglycemia Hypertension Mass of left lung Nicotine dependence, cigarettes, in remission Cerebral atherosclerosis Chronic kidney disease Diabetes mellitus with hyperglycemia Hypertension Mass of left lung Nicotine dependence, cigarettes, in remission Chief Complaint r91.8 Unknown r91.8 discussion 3 month follow up Vitamin B12 shot Reason for Visit Cerebral atheroscler osis Chronic kidney disease Diabetes mellitus with hyperglycemia Hypertension Mass of left lung Nicotine dependence, cigarettes, in remission Cerebral atherosclerosis Chronic kidney disease Diabetes mellitus with hyperglycemia Hypertension Mass of left lung Nicotine dependence, cigarettes, in remission Chief Complaint 3 month follow up Vitamin B12 shot Amb Documentation b12 Reason for Visit Cerebral atheroscler osis Chronic kidney disease Diabetes mellitus with hyperglycemia Hypertension Mass of left lung Nicotine dependence, cigarettes, in remission Chief Complaint 3 month follow up Vitamin B12 shot Amb Documentation b12 Medicare Wellness Reason for Visit Cerebral atheroscler osis Chronic kidney disease Diabetes mellitus with hyperglycemia Hypertension Mass of left lung Nicotine dependence, cigarettes, in remission Cerebral atherosclerosis Chronic kidney disease Diabetes mellitus with hyperglycemia Hypercalcemia Hypertension Iron deficiency anemia Mass of left lung Nicotine dependence, cigarettes, in remission Medicare annual wellness visit, subsequent Chief Complaint Vitamin B12 shot Amb Documentation b12 Medicare Wellness B12 Shot Reason for Visit Cerebral atheroscler osis Chronic kidney disease Diabetes mellitus with hyperglycemia Hypercalcemia Hypertension Iron deficiency anemia Mass of left lung Nicotine dependence, cigarettes, in remission Medicare annual wellness visit, subsequent Mammogram declined Chief Complaint b12 Medicare Wellness B12 Shot b12 shot Reason for Visit Cerebral atheroscler osis Chronic kidney disease Diabetes mellitus with hyperglycemia Hypercalcemia Hypertension Iron deficiency anemia Mass of left lung Nicotine dependence, cigarettes, in remission Medicare annual wellness visit, subsequent Mammogram declined Pernicious anemia Chief Complaint Medicare Wellness B12 Shot b12 shot b12 shot Reason for Visit Cerebral atheroscler osis Chronic kidney disease Diabetes mellitus with hyperglycemia Hypercalcemia Hypertension Iron deficiency anemia Mass of left lung Nicotine dependence, cigarettes, in remission Medicare annual wellness visit, subsequent Mammogram declined Pernicious anemia Additional Source Comments INFORMATION SOURCE (unrecogn ized section and content) DATE CREATED AUTHOR 10/05/2018 [facility] DATE CREATED AUTHOR AUTHOR'S ORGANIZ ATION 06/10/2022 [facility] DATE CREATED AUTHOR AUTHOR'S ORGANIZ ATION 08/18/2023 [facility] Source Comments (unrecognize d section and content) In the event this informatio n is protected by the Federal Confidentiality of Alcohol and Drug Abuse Patient Records regulations: The Federal rules restrict any use of the information to criminally investigate or prosecute any alcohol or drug abuse patient.[facility] Care Teams (unrecognized sec tion and content) Team Status: Active Member Role Status Ashley De Paz DO Primary Care Provider Active Team Status: Inactive Member Role Status Ashley De Paz DO Primary Care Provide r, Attending Provider Active Start: September 27, 2023 End: September 27, 2023 Team Status: Inactive Member Role Status Ashley De Paz DO Primary Care Provide r, Attending Provider Active Start: October 23, 2023 End: October 23, 2023 Team Status: Active Member Role Status Ashley De Paz DO Primary Care Provider Active Start: November 06, 2023 MATTY Hollins Attending Provider Active Start : November 06, 2023 Team Status: Inactive Member Role Status Ashley De Paz DO Primary Care Provide r, Attending Provider Active Start: November 28, 2023 End: November 28, 2023 Team Status: Active Member Role Status Ashley De Paz DO Primary Care Provider Active Start: July 13, 2023 Jarrett Loyola II, DO Attending Provider Active Start: July 13, 2023 Leo Allison MD Referring Provider Active Star t: July 13, 2023 Cora Gaming , MARY ALICE Active Start: July 13, 2023 Team Status: Inactive Member Role Status Ashley De Paz DO Primary Care Provide r, Attending Provider Active Start: July 13, 2023 End: July 13, 2023 Team Status: Active Member Role Status Ashley De Paz DO Primary Care Provide r, Attending Provider Active Start: August 01, 2023 Team Status: Inactive Member Role Status Ashley De Paz DO Primary Care Provide r, Attending Provider Active Start: August 07, 2023 End: August 07, 2023 Team Status: Inactive Member Role Status Ashley De Paz DO Primary Care Provider Active Start: August 09, 2023 End: August 09, 2023 Ti BURDICK DO Attending Provider Active Start: August 09, 2023 End: August 09, 2023 Team Status: Inactive Member Role Status Ashley De Paz DO Primary Care Provide r, Attending Provider Active Start: August 14, 2023 End: August 14, 2023 Team Status: Inactive Member Role Status Ashley De Paz DO Primary Care Provide r, Attending Provider Active Start: August 24, 2023 End: August 24, 2023 Team Status: Inactive Member Role Status Dates Ramin De Paz , DO Attending Provider Active Sta rt: June 27, 2023 End: June 27, 2023 Team Status: Active Member Role Status Dates Ramin De Paz DO Primary Care Provider Active Jarrett Loyola II, DO Attending Provider Active Leo Allison MD Referring Provider Active Cora Gaming APRN Active Compound Worker Relationship Specialty Start Date End Date Ramin De Paz, DO [address] [place] [address] PCP - General Internal Medicine 05/03/21 Team Status: Active Member Role Status Dates Ramin De Paz DO Primary Care Provider Active Jarrett Loyola II, DO Active Leo Allison MD Referring Provider Active Cora Gaming APRN Attending Provider Actoctaviano nuno Team Status: Inactive Member Role Status Dates Ramin De Paz DO Primary Care Provider, Attending Pr migdalia Active Team Status: Inactive Member Role Status Dates Ramin De Paz DO Primary Care Provide r, Attending Provider Active Start: December 26, 2023 End: December 26, 2023 Team Status: Inactive Member Role Status Dates Ramin De Paz DO Primary Care Provider Active Start: January 04, 2024 End: January 04, 2024 Carmencita Cespedes MD Attending Provider Active St art: January 04, 2024 End: January 04, 2024 Team Status: Active Member Role Status Dates Ramin De Paz DO Primary Care Provide r, Attending Provider Active Start: January 09, 2024 Team Status: Inactive Member Role Status Dates Ramin De Paz DO Primary Care Provide r, Attending Provider Active Start: February 06, 2024 End: February 06, 2024 Team Status: Inactive Member Role Status Dates Ramin De Paz , Primary Care Provide r, Attending Provider Active Start: March 13, 2024 End: March 13, 2024 REASON FOR VISIT (unrecogniz ed section and content) PATIENT HERE FOR FOLLOW UP E GD & COLONOSCOPY3 MONTH FOLLOW [id number] InformationB- 12 ShotNo InformationNo InformationWellnessNo InformationNo InformationNo InformationB-12 Shot3 month Follow [id number] Shot3 month Follow upNo InformationNo [id number] [id number] results Goals (unrecognized section and content) Goals [...] BE BASED ON THE PRIMARY CLINICAL RECORDS. [facility]. provides no warranty or guarantee of the accuracy or completeness of information in this document.
--- NOTE | 2024-03-16 04:46 | ED.NAVMDI1 ---
HPI - Nausea/Vomiting/Diarrhea General Chief complaint: Nausea/Vomiting/Diarrhea Stated complaint: vomiting Time Seen by Provider: 03/16/24 04:42 Source: patient Mode of arrival: walk-in Limitations: no limitations History of Present Illness HPI Narrative: patient presents complaining of abdominal pain and nausea. Emesis maybe a couple of times. Last BM 2 days ago. Discomfort and vomiting started last Night. Feels weak. No urinary symptoms or fever recent diagnosis of likely left lung CA. Attempt at biopsy resulted in bleeding and the procedure was aborted. This was in Jul. Patient has choose no treatment Related Data Home Medications ?Medication ?Instructions ?Recorded ?Confirmed amlodipine 5 mg tablet 5 mg PO DAILY 07/25/23 08/09/23 aspirin 81 mg tablet,delayed 81 mg PO DAILY 07/25/23 08/02/23 release (Adult Low Dose Aspirin) atorvastatin 10 mg tablet 10 mg PO DAILY 07/25/23 08/02/23 carvedilol 6.25 mg tablet 6.25 mg PO Q12H 07/25/23 08/09/23 clopidogrel 75 mg tablet 75 mg PO DAILY 07/25/23 08/09/23 famotidine 20 mg tablet 20 mg PO BID 07/25/23 08/02/23 furosemide 20 mg tablet 20 mg PO .every other day 07/25/23 08/02/23 glipizide 10 mg tablet 10 mg PO DAILY 07/25/23 08/02/23 losartan 50 mg tablet 50 mg PO BID 07/25/23 08/09/23 sitagliptin phosphate 50 1 tab PO BID 07/25/23 08/09/23 mg-metformin 1,000 mg tablet (Janumet) biotin 1 mg capsule 1 mg PO DAILY 08/02/23 08/02/23 cholecalciferol (vitamin D3) 50 2,000 unit PO DAILY 08/02/23 08/09/23 mcg (2,000 unit) capsule clonidine HCl 0.1 mg tablet 0.1 mg PO Q12H 08/02/23 08/09/23 cyanocobalamin (vitamin B-12) 1,000 mcg IM .monthly 08/02/23 08/02/23 1,000 mcg/mL injection solution (Dodex) ferrous sulfate 325 mg (65 mg 325 mg PO .QOD 08/02/23 08/02/23 iron) tablet (Feosol) Allergies Allergy/AdvReac Type Severity Reaction Status Date / Time Penicillins Allergy Severe Anaphylaxis Verified 03/16/24 04:34 Review of Systems ROS Status of ROS 10 or more systems reviewed and unremarkable except as noted in history and below [facility] Medical History (Updated 03/16/24 @ 06:58 by Trent Hutchins MD) History of blood transfusion ?Z92.89 - Personal history of other medical treatment (ICD-10) Anxiety ?F41.9 - Anxiety disorder, unspecified (ICD-10) Liver lesion ?K76.9 - Liver disease, unspecified (ICD-10) Adrenal mass ?E27.8 - Other specified disorders of adrenal gland (ICD-10) Seizures ?R56.9 - Unspecified convulsions (ICD-10) Chronic kidney disease ?N18.9 - Chronic kidney disease, unspecified (ICD-10) GERD (gastroesophageal reflux disease) ?K21.9 - Gastro-esophageal reflux disease without esophagitis (ICD-10) High cholesterol ?E78.00 - Pure hypercholesterolemia, unspecified (ICD-10) Hypertension ?I10 - Essential (primary) hypertension (ICD-10) Hypothyroidism ?E03.9 - Hypothyroidism, unspecified (ICD-10) Diabetes ?E11.9 - Type 2 diabetes mellitus without complications (ICD-10) Transient ischemic attack ?G45.9 - Transient cerebral ischemic attack, unspecified (ICD-10) Anemia ?D64.9 - Anemia, unspecified (ICD-10) Anticoagulated ?Z79.01 - continuous churn buttermaker (current) use of anticoagulants (ICD-10) Lung mass ?R91.8 - Other nonspecific abnormal finding of lung field (ICD-10) Surgical History (Updated 08/02/23 @ 13:58 by Mindy Galloway NP) History of appendectomy ?Z90.49 - Acquired absence of other specified parts of digestive tract (ICD-10) History of tonsillectomy ?Z90.89 - Acquired absence of other organs (ICD-10) History of esophagogastroduodenoscopy (EGD) ?Z98.890 - Other specified postprocedural states (ICD-10) History of thyroidectomy ?E89.0 - Postprocedural hypothyroidism (ICD-10) Family History (Updated 08/02/23 @ 13:58 by Mindy Galloway NP) Other Delayed recovery from anesthesia Family history of diabetes mellitus Family history of myocardial infarction History of amputation of lower extremity associated with diabetes mellitus Social History (Updated 08/02/23 @ 13:48 by Mindy Galloway NP) Within the past year, how often did you have a drink containing alcohol: never Score interpretation: A score less than 3 is consistent with normal alcohol consumption. Smoking status: Former smoker Non-prescribed substance use: denies use Highest level of school completed/degree received: high school graduate Little interest or pleasure in doing things: not at all Feeling down, depressed, or hopeless: not at all Exam Constitutional Vital Signs, click to edit/add: Last Vital Signs Temp 98.7 F 03/16/24 04:34 Pulse 92 H 03/16/24 06:40 Resp 26 H 03/16/24 06:40 BP 180/63 H 03/16/24 04:34 Pulse Ox 93 L 03/16/24 06:40 O2 Del Method Room Air 03/16/24 04:34 Common normals: no apparent distress, average body habitus, oriented x3, no limitations, healthy appearing, alert and well nourished [facility] Common normals: normocephalic and head/scalp atraumatic Eye Common normals: PERRL and EOMs intact bilaterally Respiratory Common normals: normal respiratory effort, no retractions, no use of accessory muscles and clear to auscultation bilaterally Cardio Common normals: regular rate, regular rhythm, S1 normal heart sound and S2 normal heart sound GI Common normals: Normal to inspection, nondistended, normoactive bowel sounds present and soft to palpation Other: soft . mild gen. nonspecific tenderness Extremity Common normals: normal to inspection and full ROM Neuro Common normals: oriented x3, CN's II-XII intact bilaterally, moves all extremities and no focal motor deficits Psych Appearance: grossly normal Course Vital Signs Vital signs: Vital Signs Temperature 98.7 F 03/16/24 04:34 Pulse Rate 75 03/16/24 04:34 Respiratory Rate 16 03/16/24 04:34 Blood Pressure 180/63 H 03/16/24 04:34 Pulse Oximetry 96 03/16/24 04:34 Oxygen Delivery Method Room Air 03/16/24 04:34 Temperature 98.7 F 03/16/24 04:34 Pulse Rate 92 H 03/16/24 06:40 Respiratory Rate 26 H 03/16/24 06:40 Blood Pressure 180/63 H 03/16/24 04:34 Pulse Oximetry 93 L 03/16/24 06:40 Oxygen Delivery Method Room Air 03/16/24 04:34 MDM - Nausea/Vomiting/Diarrhea MDM Narrative Medical decision making narrative: history of likely lung CA for which she has decided she does not want any treatment. biopsy was attempted but procedure discontinued because of bleeding from the procedure. now presents complaining of abdominal pain. has dark stools from taking iron. abdomen with nonspecific tenderness. No guarding. CT with mass left kidney which is likely cancer mass. Labs pending including UA. She initially refused fentanyl but now is willing to accept it. BP remains elevated and hydralazine ordered Lab Data Labs: Lab Results 03/16/24 Range/Units 04:44 WBC 16.9 H (4.0-11.0) 10^3/uL RBC 3.72 L (4.20-5.40) 10^6/uL Hgb 10.3 L (12.0-16.0) g/dL Hct 32.3 L (36.0-48.0) % MCV 86.8 (81.0-99.0) fL MCH 27.7 (26.7-34.0) pg MCHC 31.9 (29.9-35.2) g/dL RDW 13.8 (11.0-15.0) % Plt Count 354 (150-450) 10^3/uL MPV 10.7 (9.5-13.5) fL Neut % (Auto) 78.9 H (43.0-75.0) % Lymph % (Auto) 13.4 L (20.5-60.0) % [place] % (Auto) 5.0 (1.7-12.0) % Eos % (Auto) 1.4 (0.9-7.0) % Baso % (Auto) 0.4 (0.2-2.0) % Neut # (Auto) 13.4 H (1.4-6.5) 10^3/uL Lymph # (Auto) 2.3 (1.2-3.8) 10^3/uL [place] # (Auto) 0.9 H (0.3-0.8) 10^3/uL Eos # (Auto) 0.2 (0.0-0.7) 10^3/uL Baso # (Auto) 0.1 (0.0-0.1) 10^3/uL Abs Immat Gran (auto) 0.15 H (0.00-0.03) 10^3/uL Imm/Tot Granulo (auto) 0.9 H (0.0-0.5) % Sodium 136 (136-145) mmol/L Potassium 4.4 (3.5-5.1) mmol/L Chloride 98 (98-107) mmol/L Carbon Dioxide 27.7 (21.0-32.0) mmol/L Anion Gap 14.7 BUN 22.0 H (7.0-18.0) mg/dL Creatinine 1.11 H (0.55-1.02) mg/dL Est GFR ( Amer) 58 L (>=60) Est GFR (Non-Af Amer) 48 L (>=60) BUN/Creatinine Ratio 19.8 Glucose 219 H (74-106) mg/dL Lactate 3.4 H* (0.4-2.0) mmol/L Calcium 10.5 H (8.5-10.1) mg/dL Total Bilirubin 0.3 (0.2-1.0) mg/dL AST 15 (15-37) U/L ALT 17 (14-59) U/L Alkaline Phosphatase 128 H (46-116) U/L Troponin I High Sens 4.8 (4.0-51.3) pg/mL Total Protein 7.4 (6.4-8.2) g/dL Albumin 3.3 L (3.4-5.0) g/dL Globulin 4.1 g/dL Albumin/Globulin Ratio 0.8 Lipase 71.0 (16.0-77.0) U/L Imaging Data Abdominal x-ray: Radiologist's impression: ITS Impressions Abdomen/Pelvis CT 03/16/24 04:49 IMPRESSION: 1. No appreciable acute findings to account for patient's symptoms. 2. Nonspecific poorly defined hypodense area within superior pole left kidney 4.0 cm in size, this was not appreciable on the 08/14/2023 PET/CT, but is concerning for a mass. Consider follow-up CT abdomen without and with IV contrast to evaluate enhancement characteristics. Alternatively consider MRI of the kidneys or ultrasound evaluation. 3. Nonobstructing right nephrolithiasis. 4. Additional chronic changes. Electronically authenticated by: SALUD ANDUJAR Date: 03/16/2024 06:23 Discharge Plan Discharge Chief Complaint: Nausea/Vomiting/Diarrhea Clinical Impression: Abdominal pain, Left kidney mass Patient Disposition: Still a Patient Prescriptions / Home Meds: No Action amlodipine 5 mg tablet 5 mg PO DAILY atorvastatin 10 mg tablet 10 mg PO DAILY carvedilol 6.25 mg tablet 6.25 mg PO Q12H clopidogrel 75 mg tablet 75 mg PO DAILY famotidine 20 mg tablet 20 mg PO BID furosemide 20 mg tablet 20 mg PO .every other day glipizide 10 mg tablet 10 mg PO DAILY losartan 50 mg tablet 50 mg PO BID Janumet 50-1,000 mg tablet 1 tab PO BID aspirin [Adult Low Dose Aspirin] 81 mg tablet,delayed release (DR/EC) 81 mg PO DAILY clonidine HCl 0.1 mg tablet 0.1 mg PO Q12H cyanocobalamin (vitamin B-12) [Dodex] 1,000 mcg/mL solution 1,000 mcg IM .monthly ferrous sulfate [Feosol] 325 mg (65 mg iron) tablet 325 mg PO .QOD biotin 1 mg capsule 1 mg PO DAILY cholecalciferol (vitamin D3) 50 mcg (2,000 unit) capsule 2,000 unit PO DAILY Print Language: Mozambican Referrals: Ramin De Paz DO [Primary Care Provider] - 1 week
--- NOTE | 2024-03-16 04:49 | CT_ITS ---
[address] [address] Patient Name: DINO VELASCO MRN: [id number] date: 1945 Sex: F Assigned Patient Location: ER Current Patient Location: Accession/Order Number: [id number] Exam Date: 03/16/2024 05:40 Report Date: 03/16/2024 06:23 At the request of: GERALDO SMALL Procedure: CT abdomen pelvis w con EXAMINATION: CT abdomen pelvis w con HISTORY: abdominal pain and vomiting COMPARISON: CT chest 07/25/2023, 08/24/2018, PET/CT 08/14/2023 TECHNIQUE: Axial, Coronal, and Sagittal images were obtained without and/or with IV contrast as indicated by examination type. Dose reduction techniques were achieved by using automated exposure control and/or adjustment of mA and/or kV according to patient size and/or use of iterative reconstruction technique. FINDINGS: LUNG BASES: No visible pulmonary or pleural disease. LIVER: No enlargement, atrophy, suspicious density, or significant focal lesion. BILIARY: No dilatation or calcification. PANCREAS: No lesion, fluid collection, or abnormal duct dilatation. SPLEEN: No enlargement or focal lesion. ADRENALS: Stable 1.7 cm left adrenal mass. KIDNEYS: Nonobstructing 7 mm stone within right kidney and several small cysts bilaterally. Heterogeneous poorly defined slightly hypodense area within superior pole of left kidney, 4.0 x 2.2 x 3.1 cm. BOWEL/MESENTERY: No visible mass, obstruction, or bowel wall thickening. AORTA/VASCULAR: No aneurysm or dissection. RETROPERITONEUM: No mass or adenopathy. LYMPH NODES: No adenopathy. URINARY BLADDER: No visible focal wall thickening, lesion, or calculus. PELVIC ORGANS: Numerous small calcifications within uterus. ABDOMINAL WALL: No mass or hernia. BONES: Multilevel marked degenerative disc disease. No appreciable fracture. OTHER: Negative. CT/CT abdomen pelvis w con IMPRESSION: 1. No appreciable acute findings to account for patient's symptoms. 2. Nonspecific poorly defined hypodense area within superior pole left kidney 4.0 cm in size, this was not appreciable on the 08/14/2023 PET/CT, but is concerning for a mass. Consider follow-up CT abdomen without and with IV contrast to evaluate enhancement characteristics. Alternatively consider MRI of the kidneys or ultrasound evaluation. 3. Nonobstructing right nephrolithiasis. 4. Additional chronic changes. Electronically authenticated by: SALUD ANDUJAR Date: 03/16/2024 06:23
[2024-03-16] MEDS: ONDANSETRON PF 4 MG/2 ML VIAL IV ×2 (05:03→07:55)
[2024-03-16 05:09] LABS: Basophils Absolute Auto 0.1 10^3/uL (0.0-0.1); Basophils Percent Auto 0.4 % (0.2-2.0); Eosinophils Absolute Auto 0.2 10^3/uL (0.0-0.7); Eosinophils Percent Auto 1.4 % (0.9-7.0); Hematocrit 32.3 % (36.0-48.0); Hemoglobin 10.3 g/dL (12.0-16.0); Immature Granulocytes Abs Auto 0.15 10^3/uL (0.00-0.03); Immature Granulocytes Pct Auto 0.9 % (0.0-0.5); Lymphocytes Absolute Auto 2.3 10^3/uL (1.2-3.8); Lymphocytes Percent Auto 13.4 % (20.5-60.0); Mean Corpuscular HGB Conc 31.9 g/dL (29.9-35.2); Mean Corpuscular Hemoglobin 27.7 pg (26.7-34.0); Mean Corpuscular Volume 86.8 fL (81.0-99.0); Mean Platelet Volume 10.7 fL (9.5-13.5); Monocytes Absolute Auto 0.9 10^3/uL (0.3-0.8); Neutrophils Absolute Auto 13.4 10^3/uL (1.4-6.5); Neutrophils Percent Auto 78.9 % (43.0-75.0); Platelet Count 354 10^3/uL (150-450); Red Blood Count 3.72 10^6/uL (4.20-5.40); Red Cell Distribution Width 13.8 % (11.0-15.0); White Blood Count 16.9 10^3/uL (4.0-11.0)
[2024-03-16 05:30] LABS: Lactate/Lactic Acid 3.4 mmol/L (0.4-2.0)
[2024-03-16 05:36] LABS: Alanine Aminotransferase 17 U/L (14-59); Albumin Globulin Ratio 0.8; Albumin Level 3.3 g/dL (3.4-5.0); Alkaline Phosphatase 128 U/L (46-116); Anion Gap 14.7; Aspartate Amino Transferase 15 U/L (15-37); BUN Creatinine Ratio 19.8; Bilirubin Total 0.3 mg/dL (0.2-1.0); Calcium 10.5 mg/dL (8.5-10.1); Carbon Dioxide 27.7 mmol/L (21.0-32.0); Chloride 98 mmol/L (98-107); Estimated GFR (African America 58 (>=60); Estimated GFR (Non-African Ame 48 (>=60); Globulin 4.1 g/dL; Glucose 219 mg/dL (74-106); Potassium 4.4 mmol/L (3.5-5.1); Sodium 136 mmol/L (136-145); Total Protein 7.4 g/dL (6.4-8.2); Troponin I High Sensitivity 4.8 pg/mL (4.0-51.3)
--- NOTE | 2024-03-16 05:42 | ECG_ITS ---
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
[2024-03-16] MEDS: FENTANYL CITRATE/PF 100 MCG/2 ML VIAL 50 MCG IV (06:50)
[2024-03-16 06:59] LABS: Bilirubin Urine NEGATIVE (NEGATIVE); Blood Urine TRACE-L (NEGATIVE); Clarity Urine CLEAR (CLEAR); Color Urine LT. YELLOW (YELLOW); Glucose Urine UA 500 mg/dL (NEGATIVE); Ketones Urine 15 mg/dL (NEGATIVE); Leukocyte Esterase Urine NEGATIVE (NEGATIVE); Nitrite Urine NEGATIVE (NEGATIVE); Protein Urine 30 mg/dL (NEG/TRACE); Specific Gravity Urine 1.015 (1.005-1.025); Urobilinogen Urine 0.2 EU/dL (0.2-1.0)
[2024-03-16 07:06] LABS: Urine Microscopic Indicated YES
[2024-03-16] MEDS: HYDRALAZINE HCL 20 MG/ML VIAL 5 MG IVP (07:08)
[2024-03-16 07:21] LABS: WBC Urine 0-2 #/HPF (NONE SEEN)
[2024-03-16 07:22] LABS: Bacteria Urine NONE SEEN #/HPF (NONE SEEN); Cast Seen? NONE SEEN #/LPF (NONE SEEN); Crystals Seen? None Seen #/HPF (None Seen); Mucus Urine NONE SEEN (NONE SEEN); RBC Urine 0-2 #/HPF (0-2); Squamous Epithelial Cell Urine RARE #/LPF (NONE/RARE); Urine Culture Indicated NO
--- NOTE | 2024-03-16 07:24 | XR_ITS ---
The [address] [address] Patient Name: DINO VELASCO MRN: [id number] date: 1945 Sex: F Assigned Patient Location: ER Current Patient Location: ER Accession/Order Number: [id number] Exam Date: 03/16/2024 07:43 Report Date: 03/16/2024 08:03 At the request of: REE BORGES Procedure: XR chest 1V EXAM: XR chest 1V HISTORY: infection work up. COMPARISON: Comparison to chest x-ray 08/09/2023. Comparison made to PET CT due to 07/12/2023. TECHNIQUE: Single AP portable chest x-ray. FINDINGS: There has been interval enlargement of left suprahilar nodular opacity currently measuring 5.6 cm, likely corresponding to noncalcified nodule within the superior segment left lower lobe seen on prior PET/CT from 08/14/2023. There is mild left lower lobe groundglass opacity. There is no large pleural effusion or pneumothorax. Cardiac size is stable. There is degenerative disc disease in the thoracic spine. 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 XR/XR chest 1V IMPRESSION: 1. Interval enlargement of left suprahilar nodular opacity currently measuring 5.6 cm. This likely corresponds to the noncalcified nodule in the superior segment of the left lower lobe seen on PET/CT from 08/14/2023. This must be considered malignant until proven otherwise. 2. Mild left lower lobe groundglass opacity, nonspecific. Electronically authenticated by: JAIR MAKI Date: 03/16/2024 08:03
[2024-03-16] MEDS: 0.9 % SODIUM CHLORIDE 1,000 ML 1000 ML IV ×2 (07:54→08:38)
[2024-03-16] MEDS: AZITHROMYCIN 500 MG in 0.9 % SODIUM CHLORIDE 250 ML 250 MG IV (08:22)
[2024-03-16] MEDS: FAMOTIDINE/PF 20 MG/2 ML VIAL IV (08:22)
[2024-03-16] MEDS: PROCHLORPERAZINE 10 MG/2 ML VIAL 5 MG IV (08:22)
[2024-03-16 09:18] LABS: Internal Control Within Normal Limits; SARS-CoV-2 Ag NEGATIVE (NEGATIVE)
[2024-03-16 09:37] LABS: Lactate/Lactic Acid 2.2 mmol/L (0.4-2.0)
[2024-03-16] MEDS: DOXYCYCLINE HYCLATE 100 MG in 0.9 % SODIUM CHLORIDE 100 ML IV (09:42)
--- OUTSIDE RECORDS SUMMARY | 2024-03-16 13:26 | XMS_ITS | CCD ---
Author Organization [facility] CliniSyia Care Team Providers Care Conference Services Manager Name Role Phone JOSH GALLEGO Admitting Unavailable JOSH GALLEGO Attending Unavailable NEFTALI NEFF Referring Unavailable RAMIN DE PAZ Primary Care Unavailable Ramin De Paz DO Primary Care Provider Estuardo Epps Unavailable DO Ramin De Paz Primary Care Provider MD Leo Allison Referring Provider MARY ALICE [...] Nir VILLATORO, DO Jarrett Pino Attending Provider [phone] MD Leo Allison Referring Provider Tarun, DO Faustin Attending Provider Tarun, DO Faustin Primary Care Provider [phone] Nir VILLATORO, DO Jarrett Pino Attending Provider [phone] MD Leo Allison Referring Provider [phone] Tarun, Ramin Unavailable Tarun, DO Faustin Primary Care Provider [phone] Nir VILLATORO, DO Jarrett Pino Attending Provider MD Leo Allison Referring Provider Tarun, DO Faustin Primary Care Provider Nir VILLATORO, DO Jarrett Pino Attending Provider MD Leo Allison Referring Provider Tarun, DO Faustin Attending Provider [facility], DO Ti Attending Provider Ramin De Paz Attending Unavailable Ball, Ramin Admitting Unavailable Ball, Ramin Primary Care Unavailable Ball, Ramin Admitting Unavailable Ball, Ramin Primary Care Unavailable Ball, Ramin Attending Unavailable Nir VILLATORO, Jarrett Pino Attending Unavaila ble Ball, Ramin Primary Care Unavailable Leo Allison Referring Unavailable Nir VILLATORO, Jarrett Pino Admitting Unavaila ble [facility], Ti Admitting Unavailable [facility], Ti Attending Unavailable Ball, Ramin Primary Care Unavailable Ball, Ramin Admitting Unavailable Ball, Ramin Primary Care Unavailable Ball, Raimn Attending Unavailable Tarun, DO Faustin Primary Care Provider [phone] Nir VILLATORO, DO Jarrett Pino Attending Provider [phone] MD Leo Allison Referring Provider DO Ramin De Paz Attending Provider [phone] [facility] Attending Provider DO Ramin De Paz Primary Care Provider DO Ramin De Paz Attending Provider Allergies Allergy Classification Reported Allergen(s) Allergy Type Date of Onset Reaction(s) Facility Dihydrofolate Reductase Inhibitors (antibiotic) (1 source) Trimethoprim Drug Allergy 12-26-19 24 Unknown Reaction [facility] Penicillins (antibiotic) (3 sources) Penicillin G Benzathine Drug Allergy 12-26-19 24 Unknown Reaction [facility] Sulfonamides (antibiotic) (1 source) Sulfamethoxazole Drug Allergy 12-26-19 24 Unknown Reaction [facility] (12 sources) Penicillin Drug Allergy 09-21-19 14 Unknown [facility] Repository (9 sources) Penicillins Drug Allergy 05-04-20 21 Unknown [facility] (20 sources) Sulfamethoxazole / Trimethoprim Drug Allergy 05-04-20 21 Unknown [facility] (20 sources) Penicillin G Benzathine; Translations: [penicillin G benzathine] Drug allergy 06-27-19 24 Unknown, Unknown Reaction [facility] (10 sources) dulaglutide Drug Allergy TRULICITY Comment:Freete xt Needs Updated. [employer] Other (18 sources) Penicillin V Drug Allergy 06-27-19 Unknown, Unknown Reaction [facility] (2 sources) patient allergy list reviewed by nurse or physicia Propensity to adverse reactions 06-15-20 18 Comment:Done [employer] Other (9 sources) Sulfamethoxazole; Translations: [sulfamethoxazole] Drug Allergy 06-27-19 Unknown Reaction [facility] (9 sources) Trimethoprim; Translations: [trimethoprim] Drug Allergy 06-27-19 Unknown Reaction [facility] (1 source) Penicillin Drug Allergy 06-27-19 [facility] Repository (1 source) Penicillins Drug allergy (disorder) 06-28-19 [facility] Repository Medications Current Medications Medication Drug Class(es) [...] Dialyvite Vitami n D3 Max 1.25 MG (53789 UT) 1 tablet Orally Active Dialyvite Vitami n D3 Max 1.25 MG (85388 UT) 1 tablet Orally Active cloNIDine (20 [...] TABLET BY MOUTH TWICE DAILY Active Losartan [facility] um Active metFORMIN hydrochloride 1000 mg [...] 03-17-2022 Chronic Other aftercare (2 sources) Other intermodal customer service (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; Translations: [OTH RESIDENTIAL CURRENT DRUG THERAPY] Onset: 08-18-2021 Episodic Other [...] and visceral atherosclerosis (17 sources) Atherosclerosis of tetlin arteries of extremities with intermittent claudication, left leg; Translations: [Atherosclerosis of tetlin artery of left lower extremity with intermittent [...] Resolved: 06-21-2021 Episodic Other aftercare (1 source) assisted (current) use of aspirin; Translations: [RESIDENTIAL CURRENT USE OF ASPIRIN] Onset: 08-18-2021 Episodic Other aftercare (1 source) 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; Translations: [CLINICAL INFORMATICS SPEC ANTITHROMBOT/ANTIPLAT LETS] Onset: 06-23-2021 Episodic Other circulatory [...] Basophils (Bld) [#/Vol] 0.1 10 3/uL 0.0-0.1 [facility] Basophils/100 WBC Auto (Bld) on 01-09-2024 Basophils/100 WBC (Bld) 0.7 % 0.2-2.0 [facility] Cholesterol in LDL Calc [Mas s/Vol]on 01-09-2024 Cholesterol in LDL [Mass/Vol] 33.6 mg/dL [facility] Comment on above: <100 mg/dl [id number] 0-129 mg/dl NEAR OR ABOVE [id number] mg/dl BORDERLINE [id number] mg/dl HIGH>190 mg/dl VERY HIGH Cholesterol in VLDL Calc [Ma ss/Vol]on 01-09-2024 Cholesterol in VLDL [Mass/Vol] 21.4 mg/dL [facility] Eosinophils/100 WBC Auto (Bl d)on 01-09-2024 Eosinophils/100 WBC (Bld) 3.1 % 0.9-7.0 [facility] Erythrocyte distribution wid th Auto (RBC) [Ratio]on 01-09-2024 Erythrocyte distribution width (RBC) [Ratio] 14.0 % 11.0-15.0 [facility] Estimated glomerular filtrat ion rate (GFR) non- Americanon 01-09-2024 GFR/1.73 sq M.predicted among non-blacks MDRD (S/P/Bld) [Vol rate/Area] 49 mL/min/{1.73_m2} Low >=60 [facility] Globulin Calc (S) [Mass/Vol] on 01-09-2024 Globulin (S) [Mass/Vol] 3.8 g/dL [facility] Glucose mean value [Mass/vol ume] in Blood Estimated from glycated hemoglobinon 01-09-2024 Average glucose Estimated from glycated hemoglobin (Bld) [Mass/Vol] 154 mg/dL [facility] Hematocrit Auto (Bld) [Volum e fraction]on 01-09-2024 Hematocrit (Bld) [Volume fraction] 37.2 % 36.0-48.0 [facility] Hemoglobin [Mass/volume] in Bloodon 01-09-2024 Hemoglobin (Bld) [Mass/Vol] 11.9 g/dL Low 12.0-16.0 [facility] Iron binding capacity [Mass/ volume] in Serum or Plasmaon 01-09-2024 Iron binding capacity [Mass/Vol] 275.0 ug/dL 250.0-450. 0 [facility] Iron saturation [Mass Fracti on] in Serum or Plasmaon 01-09-2024 Iron saturation [Mass fraction] 16.0 % [facility] Laboratory - Chemistry and C hemistry - challengeon 01-09-2024 Albumin [Mass/Vol] 3.8 g/dL 3.4-5.0 [facility] ALP [Catalytic activity/Vol] 116 U/L 46-116 [facility] ALT [Catalytic activity/Vol] 25 U/L 14-59 [facility] AST [Catalytic activity/Vol] 23 U/L 15-37 [facility] Bilirubin [Mass/Vol] 0.4 mg/dL 0.2-1.0 [facility] Calcium [Mass/Vol] 11.0 mg/dL High 8.5-10.1 [facility] Chloride [Moles/Vol] 101 mmol/L 98-107 [facility] Cholesterol [Mass/Vol] 111 mg/dL <=200 [facility] Cholesterol in HDL [Mass/Vol] 56 mg/dL 40-60 [facility] Comment on above: > or =60 mg/dl - LOW CARDIOVASCULAR RISK<40 mg/dl - HIGH CARDIOVASCULAR RISK CO2 [Moles/Vol] 26.9 mmol/L 21.0-32.0 [facility] Creatinine [Mass/Vol] 1.08 mg/dL High 0.55-1.02 [facility] Ferritin [Mass/Vol] 95.0 ng/mL 8.0-252.0 [facility] GFR/1.73 sq M.predicted MDRD (S/P/Bld) [Vol rate/Area] 59 mL/min/{1.73_m2} Low >=60 [facility] Glucose [Mass/Vol] 188 mg/dL High 74-106 [facility] Iron [Mass/Vol] 44.0 ug/dL Low 50.0-170.0 [facility] Potassium [Moles/Vol] 5.5 mmol/L High 3.5-5.1 [facility] Protein [Mass/Vol] 7.6 g/dL 6.4-8.2 [facility] Sodium [Moles/Vol] 138 mmol/L 136-145 [facility] Triglyceride [Mass/Vol] 107 mg/dL <=150 [facility] Urea nitrogen [Mass/Vol] 19.0 mg/dL High 7.0-18.0 [facility] Urea nitrogen/Creatinine [Mass ratio] 17.6 mg/mg [facility] Laboratory - Hematology and Cell countson 01-09-2024 HbA1c (Bld) [Mass fraction] 7.0 % High 4.5-6.2 [facility] Comment on above: ADA RECOMMENDED LIMI T 4.0 - 6.0ADA THERAPEUTIC TARGET < 7.0ACTION SUGGESTED> 7.0 Immature granulocytes/100 WBC (Bld) 0.5 % 0.0-0.5 [facility] Leukocytes [#/volume] correc laurel for nucleated erythrocytes in Blood by Automated counon 01-09-2024 WBC corrected for nucl RBC Auto (Bld) [#/Vol] 9.1 10 3/uL 4.0-11.0 [facility] Lymphocytes Auto (Bld) [#/Vo l]on 01-09-2024 Lymphocytes (Bld) [#/Vol] 2.4 10 3/uL 1.2-3.8 [facility] Lymphocytes/100 WBC Auto (Bl d)on 01-09-2024 Lymphocytes/100 WBC (Bld) 26.6 % 20.5-60.0 [facility] MCH Auto (RBC) [Entitic mass ]on 01-09-2024 MCH (RBC) [Entitic mass] 28.3 pg 26.7-34.0 [facility] MCHC Auto (RBC) [Mass/Vol]on 01-09-2024 MCHC (RBC) [Mass/Vol] 32.0 g/dL 29.9-35.2 [facility] MCV Auto (RBC) [Entitic vol] on 01-09-2024 MCV (RBC) [Entitic vol] 88.4 fL 81.0-99.0 [facility] Microalbumin [Mass/volume] i n Urineon 01-09-2024 Albumin DL <= 20 mg/L (U) [Mass/Vol] 2.6 mg/dL <=30.0 [facility] Monocytes Auto (Bld) [#/Vol] on 01-09-2024 Monocytes (Bld) [#/Vol] 0.8 10 3/uL 0.3-0.8 [facility] Monocytes/100 WBC Auto (Bld) on 01-09-2024 Monocytes/100 WBC (Bld) 8.9 % 1.7-12.0 [facility] Neutrophils Auto (Bld) [#/Vo l]on 01-09-2024 Neutrophils (Bld) [#/Vol] 5.5 10 3/uL 1.4-6.5 [facility] Neutrophils/100 WBC Auto (Bl d)on 01-09-2024 Neutrophils/100 WBC (Bld) 60.2 % 43.0-75.0 [facility] No Panel Informationon 01-08 25-Hydroxy Vitamin D Total 32.6 ng/mL [facility] Comment on above: <20 ng/mL Vit D defi cient20-<30 ng/mL Vit D wzqdvqhbuxld80-301 ng/mL Vit D sufficient>100 ng/mL Potential Toxicity Eosinophils # (Auto) 0.3 10 3/uL 0.0-0.7 [facility] Immature Granulocyte # (Auto) 0.05 10 3/uL High 0.00-0.03 [facility] Parathyroid Hormone (Intact) 37 pg/mL 15-65 [facility] Comment on above: Performed at: - [address] [id number] Director: Rio Huber PhD, Phone: [phone] Platelet mean volume Auto (B ld) [Entitic vol]on 01-09-2024 Platelet mean volume (Bld) [Entitic vol] 10.9 fL 9.5-13.5 [facility] Platelets Auto (Bld) [#/Vol] on 01-09-2024 Platelets (Bld) [#/Vol] 283 10 3/uL 150-450 [facility] RBC Auto (Bld) [#/Vol]on RBC (Bld) [#/Vol] 4.21 10 6/uL 4.20-5.40 [facility] Serum or plasma albumin/glob ulin mass ratioon 01-09-2024 Albumin/Globulin [Mass ratio] 1.0 {ratio} [facility] Serum or plasma anion gap de terminationon 01-09-2024 Anion gap [Moles/Vol] 15.6 mmol/L [facility] Serum or plasma total choles terol/high density lipoprotein (HDL) cholesterol mass julio cesar 01-09-2024 Cholesterol.total/Chol esterol in HDL [Mass ratio] 2.0 {ratio} [facility] Comment on above: 3.3 - 4.4 LOW RISK4. 4 - 7.1 AVERAGE RISK7.1 - 11.0 MODERATE RISK>11.0 HIGH RISK Glucose Glucometer (BldC) [M ass/Vol]Ordered By: Ramin De Paz on 08-14-2023 Glucose [Mass/Vol] 171 mg/dL [facility] Comment on above: Random Glucose Refer ence Range is dependent on time and content of last meal. Glucose of more than 200 mg/dL in a nonstressed, ambulatory subject supports the diagnosis of Diabetes Mellitus. Glucose Poct Glucometerson 0 08-14-2023 Glucose [Mass/Vol] 171 mg/dL Normal [facility] Comment on above: Result Comment: Slater om Glucose Reference Range is dependent on time and content of last meal. Glucose of more than 200 mg/dL in a nonstressed, ambulatory subject supports the diagnosis of Diabetes Mellitus. PERFORMED BY: [place] [address] PATHOLOGIST PROTOTYPER RACHELLE MACDONALD M.D. Performed By: #### G LULS #### Point of Care testing , PET tumor init tx strat sb-m ton 08-14-2023 PET tumor init tx strat sb-mt [facility] Main [address] [address] Nuclear Medicine Report Signed Patient: Maame Velasco MR#: [id number] : 1945 Acct:[id number] Age/Sex: 77 / F ADM Date: 08/14/23 Loc: PE Room: Type: [facility] Attending Dr: Ramin De Paz DO Copies [...] Neftali Saavedra M.D.08/14/2023 3:47 PM Dictation Location: [place] [address] Transcribed By: [facility] 08/14/23 1547 Dictated By: Neftali Saavedra II, MD 08/14/23 1539 Signed By: 08/14/23 1547 [facility] 08-09-2023 L Specimen: Re ceived: 08/11/23-1147 Status: JADE Viverosq Num: [id number] Spec Type: Cytology Subm Dr: Ti Richardson DO Tissues: A PLEURAL FLUID (LT LOWER LOBE) B PLEURAL FLUID (LT LOWER LOBE POST EPI ADM) Procedures: PAS - LGRN/2, HE/4, Gross/Micro L4/2, Cyto Prepstain/2, PAPSTN/2 Age/ Patient Sex Location Account Attending Physician Maame Velasco 77/F LABELL [id number] Ti Richardson DO SPEC NUM: [id number] RECD: 08/11/23 STATUS: JADE MANJARREZ NUM: [id number] PEGGY: 08/09/23-[address]: Ti Richardson DO ENTERED: 08/11/23-1150 [facility] DR: Frank,Lab SPEC TYPE: Cytology DEPT: MARIANGEL SUERO ENTERED BY: [id number] RECV BY: [id number] ORDERED: PAS - LGRN/2, HE/4, Gross/Micro L4/2, [...] BC24 Received: 08/11/23 Status: JADE Manjarrez Num: [id number] Spec Type: Cytology Subm Dr: Ti Richardson DO Tissues: A PLEURAL FLUID (LT LOWER LOBE) B PLEURAL FLUID (LT LOWER LOBE POST EPI ADM) Procedures: PAS - LGRN/2, HE/4, Gross/Micro L4/2, Cyto Prepstain/2, PAPSTN/2 Patient: Maame Velasco [id number] (Continued) Specimen: BC Received: 08/11/23 (Continued) Signed (signature on file) Gagan Cheney MD 08/14/23 193 Specimen: BC Received: 08/11/23 Status: JADE Manjarrez Num: [id number] Spec Type: Cytology Subm Dr: Ti Richardson DO Tissues: A PLEURAL FLUID (LT LOWER LOBE) B PLEURAL FLUID (LT LOWER LOBE POST EPI ADM) Procedures: PAS - LGRN/2, HE/4, Gross/Micro L4/2, Cyto Prepstain/2, PAPSTN/2 Patient: Maame Velasco [id number] (Continued) Specimen: BC Received: 08/11/23 (Continued) Clinical Information Left lung mass. No endobronchial lesions. Final diagnosis pending cytology Gross Description A. Received fresh labeled with the patient's name, date of and left lower lobe lavage per requisition is 10 ml colorless cloudy unfixed fluid. 1 Thin Prep slides are prepared. 1 cell blocks are prepared. (CC/mn) B. Received fresh labeled with the patient's name, date of and left lower lobe lavage post epinephrine administration per requisition is 10 ml red cloudy unfixed fluid. 1 Thin Prep slides are prepared. 1 cell blocks are prepared. (CC/mn) CPT Codes 35135 x 2 21621 x 2 Specimen: [id number] Received: 08/11/23 Status: JADE Manjarrez Num: [id number] Spec Type: Cytology Subm Dr: Ti Richardson DO Tissues: A PLEURAL FLUID (LT LOWER LOBE) B PLEURAL FLUID (LT LOWER LOBE POST EPI ADM) Procedures: PAS - LGRN/2, HE/4, Gross/Micro L4/2, Cyto Prepstain/2, PAPSTN/2 Patient: Maame Velasco [id number] (Continued) Signed (signature on file) Gagan Cheney MD 08/14/231935 Normal [facility] Glucose Glucometer (BldC) [M ass/Vol]Ordered By: Ramin De Paz on 08-07-2023 Glucose [Mass/Vol] 244 mg/dL [facility] Comment on above: Random Glucose Refer ence Range is dependent on time and content of last meal. Glucose of more than 200 mg/dL in a nonstressed, ambulatory subject supports the diagnosis of Diabetes Mellitus. Glucose Poct Glucometerson 0 08-07-2023 Glucose [Mass/Vol] 244 mg/dL [facility] Comment on above: Result Comment: Slater om Glucose Reference Range is dependent on time and content of last meal. Glucose of more than 200 mg/dL in a nonstressed, ambulatory subject supports the diagnosis of Diabetes Mellitus. PERFORMED BY: [facility] [address] [place] [address] PATHOLOGIST PROTOTYPER RACHELLE MACDONALD M.D. Performed By: #### G LULS #### Point of Care testing , Aspergillus niger IgE Ab [Un its/volume] in Serumon 08-01-2023 A. niger IgE Qn (S) Negative Neg:<1:1 [facility] Histoplasma capsulatum antib janel detection by complement fixationon 08-01-2023 H. capsulatum Ab CF Ql (S) Negative Neg:<1:2 [facility] Comment on above: Performed at: [facility] [address] [id number] Director: Uziel Granado MD, Phone: [phone] Laboratory - Hematology and Cell countson 08-01-2023 ESR (Bld) [Velocity] 34 mm/h <=30 [facility] No Panel Informationon 08-01 Anti-Double Strand DNA Antibody 10 [IU]/mL 0-9 [facility] Comment on above: Negative <5 Equivoca l 5 - 9 Positive >9 Anti-Nuclear Antibody Interpret Comment . [facility] Comment on above: Autoantibody Disease Association -------- Condition Frequency ---------Antinuclear Antibody, SLE, mixed connectiveDirect (YUDI-D) tissue diseases ---------dsDNA SLE 40 - 60% ---------Chromatin Drug induced SLE 90% SLE 48 - 97% ---------SSA (Ro) SLE 25 - 35% Sjogren's Syndrome 40 - 70% Lupus 100% ---------SSB (La) SLE 10% Sjogren's Syndrome 30% ---------Sm (anti-Neff) SLE 15 - 30% ---------COMPRESSED YEAST SUPERVISOR Mixed Connective Tissue Disease 95%(U1 nRNP, SLE 30 - 50%anti-ribonucleoprotein) Polymyositis and/or Dermatomyositis 20% ---------Scl-70 (antiDNA Scleroderma (diffuse) 20 - 35%topoisomerase) Crest 13% ---------Kemi-1 Polymyositis and/or Dermatomyositis 20 - 40% ---------Centromere B Scleroderma - Crest variant 80%Performed at: [facility] [email or web address] [id number] Director: Rio Huber PhD, Phone: [phone] Aspergillus fumigatus Antibody Negative Neg:<1:1 [facility] Blastomyces dermatitidis Antibody Negative Neg:<1:1 [facility] Comment on above: Performed at: - [facility] [address] [id number] Director: Uziel Granado MD, Phone: [phone] COMPRESSED YEAST SUPERVISOR Antibody <0.2 AI 0.0-0.9 [facility] Histoplasma Galactomannan Antigen Negative <0.5 ng/mL [facility] Comment on above: This test was leyda mccrary and its performance characteristicsdetermined by [employer]. It has not been cleared orapproved by the Food and Drug Administration.Performed at: [address] [place] [email or web address] [facility], [place] [id number] Director: Tamy Garcia MD, Phone: [phone] Serum Aspergillus flavus ant ibody detection by immunodiffusionon 08-01-2023 A. flavus Ab Immune diff Ql (S) Negative Neg:<1:1 [facility] Serum Sjogrens syndrome-A ex tractable nuclear antibody assay (units/volume)on 08-01-2023 Sjogrens syndrome-A extractable nuclear Ab Qn (S) <0.2 AI 0.0-0.9 [facility] Serum Sjogrens syndrome-B ex tractable nuclear antibody assay (units/volume)on 08-01-2023 Sjogrens syndrome-B extractable nuclear Ab Qn (S) <0.2 AI 0.0-0.9 [facility] Serum Neff extractable nucl ear antigen (DEBBIE) antibody assay (units/volume)on 08-01-2023 Neff extractable nuclear Ab Qn (S) <0.2 AI 0.0-0.9 [facility] Serum angiotensin converting enzyme (KORIN) measurementon 08-01-2023 Angiotensin converting enzyme [Catalytic activity/Vol] 59 U/L 14-82 [facility] Serum or plasma cyclic adeno sine monophosphate measurement (moles/volume)on 08-01-2023 Adenosine monophosphate.cyclic [Moles/Vol] 5 units 0-19 [facility] Comment on above: Negative <20 Weak po sitive 20 - 39 Moderate positive 40 - 59 Strong positive >59 Serum or plasma free cefurox jesus alberto measurement (mass/volume)on 08-01-2023 Cefuroxime free [Mass/Vol] Positive Negative [facility] Serum or plasma rheumatoid f actor measurement (units/volume)on 08-01-2023 Rheumatoid factor Qn [IU]/mL <14.0 [facility] Comment on above: Performed at: CB - [address] [id number] Director: Rio Huber PhD, Phone: [phone] A1C with Estimated Average G luon 07-13-2023 Glucose [Mass/Vol] 232 mg/dL Normal [facility] Comment on above: Result Comment: PERF ORMED BY: [place] [address] PATHOLOGIST PROTOTYPER RACHELLE MACDONALD M.D. Performed By: #### A 1C [facility] eA #### [facility] [address] HbA1c (Bld) [Mass fraction] 9.7 % High 4.3-5.6 [facility] Comment on above: Result Comment: Incr eased risk for diabetes: 5.7 - 6.4 diabetes: >6.4 glycemic control for adults with diabetes: <7.0 Performed By: #### A 1C [facility] eA #### [address] Alanine aminotransferase [En zymatic activity/volume] in Serum or PlasmaOrdered By: Jarrett Loyola on 07-13-2023 ALT [Catalytic activity/Vol] 19 U/L 7-52 [facility] Albumin [Mass/volume] in Ser um or Plasma by Bromocresol green (BCG) dye binding methoOrdered By: Jarrett Loyola on 07-13-2023 Albumin BCG dye [Mass/Vol] 4.2 g/dL 3.5-5.7 [facility] Alkaline phosphatase [Enzyma tic activity/volume] in Serum or PlasmaOrdered By: Jarrett Loyola on 07-13-2023 ALP [Catalytic activity/Vol] 107 U/L 34-104 [facility] Aspartate aminotransferase [ Enzymatic activity/volume] in Serum or PlasmaOrdered By: Jarrett Loyola on 07-13-2023 AST [Catalytic activity/Vol] 15 U/L 13-39 [facility] Basophils Auto (Bld) [#/Vol] Ordered By: Jarrett Loyola on 07-13-2023 Basophils (Bld) [#/Vol] 0.1 10*3/uL 0.0-0.2 [facility] Basophils/100 WBC Auto (Bld) Ordered By: Jarrett Loyola on 07-13-2023 Basophils/100 WBC (Bld) 0.8 % . [facility] Bilirubin.total [Mass/volume ] in Serum or PlasmaOrdered By: Jarrett Loyola on 07-13-2023 Bilirubin [Mass/Vol] 0.5 mg/dL 0.3-1.0 [facility] Calcium [Mass/volume] in Ser um or PlasmaOrdered By: Jarrett Loyola on 07-13-2023 Calcium [Mass/Vol] 10.7 mg/dL 8.6-10.3 [facility] Carbon dioxide, total [Moles /volume] in Serum or PlasmaOrdered By: Jarrett Loyola on 07-13-2023 CO2 [Moles/Vol] 28.9 mmol/L 21.0-31.0 [facility] Chloride [Moles/volume] in S valdo or PlasmaOrdered By: Jarrett Loyola on 07-13-2023 Chloride [Moles/Vol] 101 mmol/L 98-107 [facility] Complete Blood Count Auto Di ffon 07-13-2023 Basophils (Bld) [#/Vol] 0.1 10*3/uL Normal 0.0-0.2 [facility] Comment on above: Result Comment: PERF ORMED BY: [facility] [address] [place] [address] PATHOLOGIST PROTOTYPER RACHELLE MACDONALD M.D. Performed By: #### F E and TIBC, CBC, CMP, TIM #### [facility] [address] [place] [address] [place] Basophils/100 WBC (Bld) 0.8 % Normal . [facility] Comment on above: Performed By: #### F E and TIBC, CBC, CMP, TIM #### [facility] [address] [place] [address] [place] Eosinophils (Bld) [#/Vol] 0.2 10*3/uL Normal 0.0-0.45 [facility] Comment on above: Performed By: #### F E and TIBC, CBC, CMP, TIM #### [facility] [address] [place] [address] [place] Eosinophils/100 WBC (Bld) 2.5 % Normal . [facility] Comment on above: Performed By: #### F E and TIBC, CBC, CMP, TIM #### [address] Erythrocyte distribution width (RBC) [Ratio] 13.3 % Normal 11.9-15.3 [facility] Comment on above: Performed By: #### F E and TIBC, CBC, CMP, TIM #### [address] Hematocrit (Bld) [Volume fraction] 35.2 % Normal 34.0-46.4 [facility] Comment on above: Performed By: #### F E and TIBC, CBC, CMP, TIM #### [address] Hemoglobin (Bld) [Mass/Vol] 12.0 g/dL Normal 11.8-15.4 [facility] Comment on above: Performed By: #### F E and TIBC, CBC, CMP, TIM #### [address] Lymphocytes (Bld) [#/Vol] 2.2 10*3/uL Normal 1.00-4.8 [facility] Comment on above: Performed By: #### F E and TIBC, CBC, CMP, TIM #### [address] Lymphocytes/100 WBC (Bld) 25.5 % Normal . [facility] Comment on above: Performed By: #### F E and TIBC, CBC, CMP, TIM #### [address] MCH (RBC) [Entitic mass] 29.5 pg Normal 24.7-34.3 [facility] Comment on above: Performed By: #### F E and TIBC, CBC, CMP, TIM #### [address] MCV (RBC) [Entitic vol] 86.8 fL Normal 80-100 [facility] Comment on above: Performed By: #### F E and TIBC, CBC, CMP, TIM #### [address] Mean Corpuscular HGB Conc 34.0 g/dL Normal 32.0-35.0 [facility] Comment on above: Performed By: #### F E and TIBC, CBC, CMP, TIM #### [address] Monocytes (Bld) [#/Vol] 0.8 10*3/uL Normal 0.0-0.8 [facility] Comment on above: Performed By: #### F E and TIBC, CBC, CMP, TIM #### [address] Monocytes/100 WBC (Bld) 9.1 % Normal . [facility] Comment on above: Performed By: #### F E and TIBC, CBC, CMP, TIM #### [address] Neutrophils (Bld) [#/Vol] 5.3 10*3/uL Normal 1.8-7.7 [facility] Comment on above: Performed By: #### F E and TIBC, CBC, CMP, TIM #### [address] Neutrophils/100 WBC (Bld) 62.1 % Normal . [facility] Comment on above: Performed By: #### F E and TIBC, CBC, CMP, TIM #### [address] NRBC% 0.0 /100{WBC} Normal 0-0.5 [facility] Comment on above: Performed By: #### F E and TIBC, CBC, CMP, TIM #### [address] Platelet mean volume (Bld) [Entitic vol] 9.3 fL Normal 6.3-10.7 [facility] Comment on above: Performed By: #### F E and TIBC, CBC, CMP, TIM #### [address] Platelets (Bld) [#/Vol] 219 10*3/uL Normal 150-450 [facility] Comment on above: Performed By: #### F E and TIBC, CBC, CMP, TIM #### [address] RBC (Bld) [#/Vol] 4.06 10*6/uL Normal 3.60-5.00 [facility] Comment on above: Performed By: #### F E and TIBC, CBC, CMP, TIM #### [address] WBC (Bld) [#/Vol] 8.6 10*3/uL Normal 3.8-11.6 [facility] Comment on above: Performed By: #### F E and TIBC, CBC, CMP, TIM #### [address] Comprehensive Metabolic Pane marleny 07-13-2023 Albumin [Mass/Vol] 4.2 g/dL Normal 3.5-5.7 [facility] Comment on above: Performed By: #### F E and TIBC, CBC, CMP, TIM #### [address] Albumin/Globulin [Mass ratio] 1.9 {ratio} Normal [facility] Comment on above: Performed By: #### F E and TIBC, CBC, CMP, TIM #### [address] ALP [Catalytic activity/Vol] 107 U/L High 34-104 [facility] Comment on above: Performed By: #### F E and TIBC, CBC, CMP, TIM #### [address] ALT [Catalytic activity/Vol] 19 U/L Normal 7-52 [facility] Comment on above: Performed By: #### F E and TIBC, CBC, CMP, TIM #### [address] Anion gap [Moles/Vol] 9.8 mmol/L Normal 6.0-15.0 [facility] Comment on above: Performed By: #### F E and TIBC, CBC, CMP, TIM #### [address] AST [Catalytic activity/Vol] 15 U/L Normal 13-39 [facility] Comment on above: Performed By: #### F E and TIBC, CBC, CMP, TIM #### [address] Bilirubin [Mass/Vol] 0.5 mg/dL Normal 0.3-1.0 [facility] Comment on above: Performed By: #### F E and TIBC, CBC, CMP, TIM #### [address] Calcium [Mass/Vol] 10.7 mg/dL High 8.6-10.3 [facility] Comment on above: Performed By: #### F E and TIBC, CBC, CMP, TIM #### [address] Chloride [Moles/Vol] 101 mmol/L Normal 98-107 [facility] Comment on above: Performed By: #### F E and TIBC, CBC, CMP, TIM #### [address] CO2 [Moles/Vol] 28.9 mmol/L Normal 21.0-31.0 [facility] Comment on above: Performed By: #### F E and TIBC, CBC, CMP, TIM #### [address] Creatinine [Mass/Vol] 1.13 mg/dL Normal 0.60-1.20 [facility] Comment on above: Performed By: #### F E and TIBC, CBC, CMP, TIM #### [address] Creatinine Clr Calc Pharmacy 34.88 Normal [facility] Comment on above: Performed By: #### F E and TIBC, CBC, CMP, TIM #### [facility] [address] [place] [address] [place] GFR/1.73 sq M.predicted MDRD (S/P/Bld) [Vol rate/Area] 50.109 mL/min/{1.73_m2} Normal [facility] Comment on above: Performed By: #### F E and TIBC, CBC, CMP, TIM #### [facility] [address] Globulin (S) [Mass/Vol] 2.2 g/dL [facility] Comment on above: Performed By: #### F E and TIBC, CBC, CMP, TIM #### [facility] [address] Glucose [Mass/Vol] 234 mg/dL High 70-100 [facility] Comment on above: Result Comment: [facility] Glucose Reference Range is dependent on time and content of last meal. Glucose of more than 200 mg/dL in a nonstressed, ambulatory subject supports the diagnosis of Diabetes Mellitus. ADA recommended reference range Performed By: #### F E and TIBC, CBC, CMP, TIM #### [facility] [address] Potassium [Moles/Vol] 4.7 mmol/L Normal 3.5-5.1 [facility] Comment on above: Performed By: #### F E and TIBC, CBC, CMP, TIM #### [facility] [address] [place] [address] [place] Protein [Mass/Vol] 6.4 g/dL Normal 6.4-8.9 [facility] Comment on above: Performed By: #### F E and TIBC, CBC, CMP, TIM #### [facility] [address] Sodium [Moles/Vol] 135 mmol/L Low 136-145 [facility] Comment on above: Performed By: #### F E and TIBC, CBC, CMP, TIM #### [facility] [address] Urea nitrogen [Mass/Vol] 23 mg/dL Normal 7-25 [facility] Comment on above: Performed By: #### F E and TIBC, CBC, CMP, TIM #### [facility] [address] [place] [id number] [facility] Creatinine [Mass/volume] in Serum or PlasmaOrdered By: Jarrett Loyola on 07-13-2023 Creatinine [Mass/Vol] 1.13 mg/dL 0.60-1.20 [facility] Eosinophils Auto (Bld) [#/Vo l]Ordered By: Jarrett Loyola on 07-13-2023 Eosinophils (Bld) [#/Vol] 0.2 10*3/uL 0.0-0.45 [facility] Eosinophils/100 WBC Auto (Bl d)Ordered By: Jarrett Loyola on 07-13-2023 Eosinophils/100 WBC (Bld) 2.5 % . [facility] Erythrocyte distribution wid th Auto (RBC) [Ratio]Ordered By: Jarrett Loyola on 07-13-2023 Erythrocyte distribution width (RBC) [Ratio] 13.3 % 11.9-15.3 [facility] Ferritinon 07-13-2023 Ferritin [Mass/Vol] 101.6 ng/mL Normal 11.0-306.8 [facility] Comment on above: Result Comment: PERF ORMED BY: [place] [address] PATHOLOGIST PROTOTYPER RACHELLE MACDONALD M.D. Performed By: #### F E and TIBC, CBC, CMP, TIM #### [facility] [address] Ferritin [Mass/volume] in Se rum or PlasmaOrdered By: Jarrett Loyola on 07-13-2023 Ferritin [Mass/Vol] 101.6 ng/mL 11.0-306.8 [facility] Globulin Calc (S) [Mass/Vol] Ordered By: Jarrett Loyola on 07-13-2023 Globulin (S) [Mass/Vol] 2.2 g/dL [facility] Glucose [Mass/volume] in Ser um or PlasmaOrdered By: Jarrett Loyola on 07-13-2023 Glucose [Mass/Vol] 234 mg/dL 70-100 [facility] Comment on above: ADA recommended refe [...] from glycated hemoglobin (Bld) [Mass/Vol] 232 mg/dL [facility] Hematocrit Auto (Bld) [Volum e fraction]Ordered By: Jarrett Loyola on 07-13-2023 Hematocrit (Bld) [Volume fraction] 35.2 % 34.0-46.4 [facility] Hemoglobin A1c percentageOrd ered By: Ramin De Paz on 07-13-2023 HbA1c (Bld) [Mass fraction] 9.7 % 4.3-5.6 [facility] Comment on above: Increased risk for d iabetes: 5.7 - 6.4diabetes: >6.4glycemic control for adults with diabetes: <7.0 Hemoglobin [Mass/volume] in BloodOrdered By: Jarrett Loyola on 07-13-2023 Hemoglobin (Bld) [Mass/Vol] 12.0 g/dL 11.8-15.4 [facility] Iron [Mass/volume] in Serum or PlasmaOrdered By: Jarrett Loyola on 07-13-2023 Iron [Mass/Vol] 72 ug/dL 50-212 [facility] Iron and TIBC Profileon 06-20 % Iron Saturation 22.4 % Normal 20-50 [facility] Comment on above: Performed By: #### F E and TIBC, CBC, CMP, TIM #### [facility] [address] [place] [address] [place] Iron [Mass/Vol] 72 ug/dL Normal 50-212 [facility] Comment on above: Performed By: #### F E and TIBC, CBC, CMP, TIM #### [facility] [address] [place] [address] [place] Total Iron Binding Capacity 322 ug/dL Normal 255-450 [facility] Comment on above: Performed By: #### F E and TIBC, CBC, CMP, TIM #### [facility] [address] [place] [address] [place] Transferrin [Mass/Vol] 230 mg/dL Normal 203-362 [facility] Comment on above: Performed By: #### F E and TIBC, CBC, CMP, TIM #### [facility] [address] [place] [address] [place] Iron binding capacity [Mass/ volume] in Serum or PlasmaOrdered By: Jarrett Loyola on 07-13-2023 Iron binding capacity [Mass/Vol] 322 ug/dL 255-450 [facility] Iron saturation [Mass Fracti on] in Serum or PlasmaOrdered By: Jarrett Loyola on 07-13-2023 Iron saturation [Mass fraction] 22.4 % 20-50 [facility] Leukocytes [#/volume] correc laurel for nucleated erythrocytes in Blood by Automated counOrdered By: Jarrett Loyola on 07-13-2023 WBC corrected for nucl RBC Auto (Bld) [#/Vol] 8.6 10*3/uL 3.8-11.6 [facility] Lymphocytes Auto (Bld) [#/Vo l]Ordered By: Jarrett Loyola on 07-13-2023 Lymphocytes (Bld) [#/Vol] 2.2 10*3/uL 1.00-4.8 [facility] Lymphocytes/100 WBC Auto (Bl d)Ordered By: Jarrett Loyola on 07-13-2023 Lymphocytes/100 WBC (Bld) 25.5 % . [facility] MCH Auto (RBC) [Entitic mass ]Ordered By: Jarrett Loyola on 07-13-2023 MCH (RBC) [Entitic mass] 29.5 pg 24.7-34.3 [facility] MCHC Auto (RBC) [Mass/Vol]Or dered By: Jarrett Loyola on 07-13-2023 MCHC (RBC) [Mass/Vol] 34.0 g/dL 32.0-35.0 [facility] MCV Auto (RBC) [Entitic vol] Ordered By: Jarrett Loyola on 07-13-2023 MCV (RBC) [Entitic vol] 86.8 fL 80-100 [facility] Monocytes Auto (Bld) [#/Vol] Ordered By: Jarrett Loyola on 07-13-2023 Monocytes (Bld) [#/Vol] 0.8 10*3/uL 0.0-0.8 [facility] Monocytes/100 WBC Auto (Bld) Ordered By: Jarrett Loyola on 07-13-2023 Monocytes/100 WBC (Bld) 9.1 % . [facility] Neutrophils Auto (Bld) [#/Vo l]Ordered By: Jarrett Loyola on 07-13-2023 Neutrophils (Bld) [#/Vol] 5.3 10*3/uL 1.8-7.7 [facility] Neutrophils/100 WBC Auto (Bl d)Ordered By: Jarrett Loyola on 07-13-2023 Neutrophils/100 WBC (Bld) 62.1 % . [facility] No Panel InformationOrdered By: Jarrett Loyola on 07-13-2023 Estimated GFR (CKD-EPI) 50.109 mL/Min [facility] Creatinine Clearance (Chem 34.88 [facility] Nucleated erythrocytes [Pres ence] in Blood by Automated countOrdered By: Jarrett Loyola on 07-13-2023 Nucleated RBC Auto Ql (Bld) 0.0 /100{WBC} 0-0.5 [facility] Platelet mean volume Auto (B ld) [Entitic vol]Ordered By: Jarrett Loyola on 07-13-2023 Platelet mean volume (Bld) [Entitic vol] 9.3 fL 6.3-10.7 [facility] Platelets Auto (Bld) [#/Vol] Ordered By: Jarrett Loyola on 07-13-2023 Platelets (Bld) [#/Vol] 219 10*3/uL 150-450 [facility] Potassium [Moles/volume] in Serum or PlasmaOrdered By: Jarrett Loyola on 07-13-2023 Potassium [Moles/Vol] 4.7 mmol/L 3.5-5.1 [facility] Protein [Mass/volume] in Ser um or PlasmaOrdered By: Jarrett Loyola on 07-13-2023 Protein [Mass/Vol] 6.4 g/dL 6.4-8.9 [facility] RBC Auto (Bld) [#/Vol]Ordere d By: Jarrett Loyola on 07-13-2023 RBC (Bld) [#/Vol] 4.06 10*6/uL 3.60-5.00 [facility] Serum or plasma albumin/glob ulin mass ratioOrdered By: Jarrett Loyola on 07-13-2023 Albumin/Globulin [Mass ratio] 1.9 {ratio} [facility] Serum or plasma anion gap de terminationOrdered By: Jarrett Loyola on 07-13-2023 Anion gap [Moles/Vol] 9.8 mmol/L 6.0-15.0 [facility] Sodium [Moles/volume] in Ser um or PlasmaOrdered By: Jarrett Loyola on 07-13-2023 Sodium [Moles/Vol] 135 mmol/L 136-145 [facility] Transferrin [Mass/volume] in Serum or PlasmaOrdered By: Jarrett Loyola on 07-13-2023 Transferrin [Mass/Vol] 230 mg/dL 203-362 [facility] Urea nitrogen [Mass/volume] in Serum or PlasmaOrdered By: Jarrett Loyola on 07-13-2023 Urea nitrogen [Mass/Vol] 23 mg/dL 7-25 [facility] WBC Auto (Bld) [#/Vol]Ordere d By: Jarrett Loyola on 07-13-2023 WBC (Bld) [#/Vol] 8.6 10*3/uL 3.8-11.6 [facility] Alanine aminotransferase [En zymatic activity/volume] in Serum or PlasmaOrdered By: Tatiana Christianson on 01-10-2023 ALT [Catalytic activity/Vol] 14 U/L [facility] Albumin [Mass/volume] in Ser um or PlasmaOrdered By: Tatiana Christianson on 01-10-2023 Albumin [Mass/Vol] 3.8 g/dL 2.9-4.4 [facility] Albumin [Mass/volume] in Ser um or Plasma by Bromocresol green (BCG) dye binding methoOrdered By: Tatiana Christianson on 01-10-2023 Albumin BCG dye [Mass/Vol] 4.6 g/dL 3.5-5.7 [facility] Alkaline phosphatase [Enzyma tic activity/volume] in Serum or PlasmaOrdered By: Tatiana Christianson on 01-10-2023 ALP [Catalytic activity/Vol] 86 U/L 34-104 [facility] Aspartate aminotransferase [ Enzymatic activity/volume] in Serum or PlasmaOrdered By: Tatiana Christianson on 01-10-2023 AST [Catalytic activity/Vol] 14 U/L 13-39 [facility] Basophils Auto (Bld) [#/Vol] Ordered By: Tatiana Christianson on 01-10-2023 Basophils (Bld) [#/Vol] 0.1 10*3/uL 0.0-0.2 [facility] Basophils/100 WBC Auto (Bld) Ordered By: Tatiana Christianson on 01-10-2023 Basophils/100 WBC (Bld) 0.7 % . [facility] Bilirubin.total [Mass/volume ] in Serum or PlasmaOrdered By: Tatiana Christianson on 01-10-2023 Bilirubin [Mass/Vol] 0.4 mg/dL 0.3-1.0 [facility] Calcium [Mass/volume] in Ser um or PlasmaOrdered By: Tatiana Christianson on 01-10-2023 Calcium [Mass/Vol] 10.6 mg/dL 8.6-10.3 [facility] Carbon dioxide, total [Moles /volume] in Serum or PlasmaOrdered By: Tatiana Christianson on 01-10-2023 CO2 [Moles/Vol] 28.9 mmol/L 21.0-31.0 [facility] Chloride [Moles/volume] in S valdo or PlasmaOrdered By: Tatiana Christianson on 01-10-2023 Chloride [Moles/Vol] 103 mmol/L 98-107 [facility] Complete Blood Count Auto Di ffon 07-25-2023 Basophils (Bld) [#/Vol] 0.1 10*3/uL Normal 0.0-0.2 [facility] Comment on above: Result Comment: PERF ORMED BY: [place] [address] PATHOLOGIST PROTOTYPER RACHELLE MACDONALD M.D. Performed By: #### S PE, KAPPA, ABDELRAHMAN SERUM #### [facility] , #### TIM, CBC, CMP, FE and TIBC #### [address] Basophils/100 WBC (Bld) 0.7 % Normal . [facility] Comment on above: Performed By: #### S PE, KAPPA, ABDELRAHMAN SERUM #### [facility] , #### TIM, CBC, CMP, FE and TIBC #### [place] [address] [place] Eosinophils (Bld) [#/Vol] 0.3 10*3/uL Normal 0.0-0.45 [facility] Comment on above: Performed By: #### S PE, KAPPA, ABDELRAHMAN SERUM #### [facility] , #### TIM, CBC, CMP, FE and TIBC #### [address] Eosinophils/100 WBC (Bld) 3.1 % Normal . [facility] Comment on above: Performed By: #### S PE, KAPPA, ABDELRAHMAN SERUM #### [facility] , #### TIM, CBC, CMP, FE and TIBC #### [address] Erythrocyte distribution width (RBC) [Ratio] 13.7 % Normal 11.9-15.3 [facility] Comment on above: Performed By: #### S PE, KAPPA, ABDELRAHMAN SERUM #### [facility] , #### TIM, CBC, CMP, FE and TIBC #### [place] [address] [place] Hematocrit (Bld) [Volume fraction] 35.4 % Normal 34.0-46.4 [facility] Comment on above: Performed By: #### S PE, KAPPA, ABDELRAHMAN SERUM #### [facility] , #### TIM, CBC, CMP, FE and TIBC #### [address] Hemoglobin (Bld) [Mass/Vol] 11.7 g/dL Low 11.8-15.4 [facility] Comment on above: Performed By: #### S PE, KAPPA, ABDELRAHMAN SERUM #### [facility] , #### TIM, CBC, CMP, FE and TIBC #### [address] Lymphocytes (Bld) [#/Vol] 2.2 10*3/uL Normal 1.00-4.8 [facility] Comment on above: Performed By: #### S PE, KAPPA, ABDELRAHMAN SERUM #### [facility] , #### TIM, CBC, CMP, FE and TIBC #### [address] Lymphocytes/100 WBC (Bld) 25.3 % Normal . [facility] Comment on above: Performed By: #### S PE, KAPPA, ABDELRAHMAN SERUM #### [facility] , #### TIM, CBC, CMP, FE and TIBC #### [address] MCH (RBC) [Entitic mass] 28.6 pg Normal 24.7-34.3 [facility] Comment on above: Performed By: #### S PE, KAPPA, ABDELRAHMAN SERUM #### [facility] , #### TIM, CBC, CMP, FE and TIBC #### [address] MCV (RBC) [Entitic vol] 86.3 fL Normal 80-100 [facility] Comment on above: Performed By: #### S PE, KAPPA, ABDELRAHMAN SERUM #### [facility] , #### TIM, CBC, CMP, FE and TIBC #### [address] Mean Corpuscular HGB Conc 33.1 g/dL Normal 32.0-35.0 [facility] Comment on above: Performed By: #### S PE, KAPPA, ABDELRAHMAN SERUM #### [facility] , #### TIM, CBC, CMP, FE and TIBC #### [address] Monocytes (Bld) [#/Vol] 0.7 10*3/uL Normal 0.0-0.8 [facility] Comment on above: Performed By: #### S PE, KAPPA, ABDELRAHMAN SERUM #### [facility] , #### TIM, CBC, CMP, FE and TIBC #### [address] Monocytes/100 WBC (Bld) 8.6 % Normal . [facility] Comment on above: Performed By: #### S PE, KAPPA, ABDELRAHMAN SERUM #### [facility] , #### TIM, CBC, CMP, FE and TIBC #### [address] Neutrophils (Bld) [#/Vol] 5.3 10*3/uL Normal 1.8-7.7 [facility] Comment on above: Performed By: #### S PE, KAPPA, ABDELRAHMAN SERUM #### [facility] , #### TIM, CBC, CMP, FE and TIBC #### [address] Neutrophils/100 WBC (Bld) 62.3 % Normal . [facility] Comment on above: Performed By: #### S PE, KAPPA, ABDELRAHMAN SERUM #### [facility] , #### TIM, CBC, CMP, FE and TIBC #### [address] NRBC% 0.1 /100{WBC} Normal 0-0.5 [facility] Comment on above: Performed By: #### S PE, KAPPA, ABDELRAHMAN SERUM #### [facility] , #### TIM, CBC, CMP, FE and TIBC #### [address] Platelet mean volume (Bld) [Entitic vol] 9.6 fL Normal 6.3-10.7 [facility] Comment on above: Performed By: #### S PE, KAPPA, ABDELRAHMAN SERUM #### [facility] , #### TIM, CBC, CMP, FE and TIBC #### [address] Platelets (Bld) [#/Vol] 231 10*3/uL Normal 150-450 [facility] Comment on above: Performed By: #### S PE, KAPPA, ABDELRAHMAN SERUM #### [facility] , #### TIM, CBC, CMP, FE and TIBC #### [address] RBC (Bld) [#/Vol] 4.11 10*6/uL Normal 3.60-5.00 [facility] Comment on above: Performed By: #### S PE, KAPPA, ABDELRAHMAN SERUM #### [facility] , #### TIM, CBC, CMP, FE and TIBC #### [address] WBC (Bld) [#/Vol] 8.5 10*3/uL Normal 3.8-11.6 [facility] Comment on above: Performed By: #### S PE, KAPPA, ABDELRAHMAN SERUM #### [facility] , #### TIM, CBC, CMP, FE and TIBC #### [place] [address] Comprehensive Metabolic Pane marleny 01-10-2023 Albumin [Mass/Vol] 4.6 g/dL Normal 3.5-5.7 [facility] Comment on above: Performed By: #### S PE, KAPPA, ABDELRAHMAN SERUM ####[facility] ,#### TIM, CBC, CMP, FE and TIBC ####[address] Albumin/Globulin [Mass ratio] 2.0 {ratio} Normal [facility] Comment on above: Performed By: #### S PE, KAPPA, ABDELRAHMAN SERUM ####[facility] ,#### TIM, CBC, CMP, FE and TIBC ####[address] ALP [Catalytic activity/Vol] 86 U/L Normal 34-104 [facility] Comment on above: Performed By: #### S PE, KAPPA, ABDELRAHMAN SERUM ####[facility] ,#### TIM, CBC, CMP, FE and TIBC ####[address] ALT [Catalytic activity/Vol] 14 U/L Normal 7-52 [facility] Comment on above: Performed By: #### S PE, KAPPA, ABDELRAHMAN SERUM ####[facility] ,#### TIM, CBC, CMP, FE and TIBC ####[address] Anion gap [Moles/Vol] 10.9 mmol/L Normal 6.0-15.0 [facility] Comment on above: Performed By: #### S PE, KAPPA, ABDELRAHMAN SERUM ####[facility] ,#### TIM, CBC, CMP, FE and TIBC ####[address] AST [Catalytic activity/Vol] 14 U/L Normal 13-39 [facility] Comment on above: Performed By: #### S PE, KAPPA, ABDELRAHMAN SERUM ####[facility] ,#### TIM, CBC, CMP, FE and TIBC ####[address] Bilirubin [Mass/Vol] 0.4 mg/dL Normal 0.3-1.0 [facility] Comment on above: Performed By: #### S PE, KAPPA, ABDELRAHMAN SERUM ####[facility] ,#### TIM, CBC, CMP, FE and TIBC ####[address] Calcium [Mass/Vol] 10.6 mg/dL High 8.6-10.3 [facility] Comment on above: Performed By: #### S PE, KAPPA, ABDELRAHMAN SERUM ####[facility] ,#### TIM, CBC, CMP, FE and TIBC ####[address] Chloride [Moles/Vol] 103 mmol/L Normal 98-107 [facility] Comment on above: Performed By: #### S PE, KAPPA, ABDELRAHMAN SERUM ####[facility] ,#### TIM, CBC, CMP, FE and TIBC ####[address] CO2 [Moles/Vol] 28.9 mmol/L Normal 21.0-31.0 [facility] Comment on above: Performed By: #### S PE, KAPPA, ABDELRAHMAN SERUM ####[facility] ,#### TIM, CBC, CMP, FE and TIBC ####[address] Creatinine [Mass/Vol] 1.09 mg/dL Normal 0.60-1.20 [facility] Comment on above: Performed By: #### S PE, KAPPA, ABDELRAHMAN SERUM ####[facility] ,#### TIM, CBC, CMP, FE and TIBC ####[address] Creatinine Clr Calc Pharmacy 35.85 [facility] Comment on above: Performed By: #### S PE, KAPPA, ABDELRAHMAN SERUM ####[facility] ,#### TIM, CBC, CMP, FE and TIBC ####[address] GFR/1.73 sq M.predicted MDRD (S/P/Bld) [Vol rate/Area] 52.323 mL/min/{1.73_m2} [facility] Comment on above: Performed By: #### S PE, KAPPA, ABDELRAHMAN SERUM ####[facility] ,#### TIM, CBC, CMP, FE and TIBC ####[address] Globulin (S) [Mass/Vol] 2.3 g/dL [facility] Comment on above: Performed By: #### S PE, KAPPA, ABDELRAHMAN SERUM ####[facility] ,#### TIM, CBC, CMP, FE and TIBC ####[address] Glucose [Mass/Vol] 170 mg/dL High 70-100 [facility] Comment on above: Result Comment: [facility] Glucose Reference Range is dependent on time and content of last meal. Glucose of more than 200 mg/dL in a nonstressed, ambulatory subject supports the diagnosis of Diabetes Mellitus. ADA recommended reference range Performed By: #### S PE, KAPPA, ABDELRAHMAN SERUM ####[facility] ,#### TIM, CBC, CMP, FE and TIBC ####[address] Potassium [Moles/Vol] 4.8 mmol/L Normal 3.5-5.1 [facility] Comment on above: Performed By: #### S PE, KAPPA, ABDELRAHMAN SERUM ####[facility] ,#### TIM, CBC, CMP, FE and TIBC ####[address] Protein [Mass/Vol] 6.9 g/dL Normal 6.0-8.5 [facility] Comment on above: Performed By: #### S PE, KAPPA, ABDELRAHMAN SERUM ####[facility] ,#### TIM, CBC, CMP, FE and TIBC ####[address] Sodium [Moles/Vol] 138 mmol/L Normal 136-145 [facility] Comment on above: Performed By: #### S PE, KAPPA, ABDELRAHMAN SERUM ####[facility] ,#### TIM, CBC, CMP, FE and TIBC ####[address] Urea nitrogen [Mass/Vol] 20 mg/dL Normal 7-25 [facility] Comment on above: Performed By: #### S PE, KAPPA, ABDELRAHMAN SERUM ####[facility] ,#### TIM, CBC, CMP, FE and TIBC ####[address] Creatinine [Mass/volume] in Serum or PlasmaOrdered By: Tatiana Christianson on 01-10-2023 Creatinine [Mass/Vol] 1.09 mg/dL 0.60-1.20 [facility] Eosinophils Auto (Bld) [#/Vo l]Ordered By: Tatiana Christianson on 01-10-2023 Eosinophils (Bld) [#/Vol] 0.3 10*3/uL 0.0-0.45 [facility] Eosinophils/100 WBC Auto (Bl d)Ordered By: Tatiana Christianson on 01-10-2023 Eosinophils/100 WBC (Bld) 3.1 % . [facility] Erythrocyte distribution wid th Auto (RBC) [Ratio]Ordered By: Tatiana Pricechantami on 01-10-2023 Erythrocyte distribution width (RBC) [Ratio] 13.7 % 11.9-15.3 [facility] Ferritinon 01-10-2023 Ferritin [Mass/Vol] 23.3 ng/mL Normal 11.0-306.8 [facility] Comment on above: Result Comment: PERF ORMED BY: [facility] [address] [place] [place] [address] PATHOLOGIST PROTOTYPER RACHELLE MACDONALD M.D. Performed By: #### S PE, KAPPA, ABDELRAHMAN SERUM ####[facility] ,#### TIM, CBC, CMP, FE and TIBC ####[address] Ferritin [Mass/volume] in Se rum or PlasmaOrdered By: Tatiana Pruitttami on 01-10-2023 Ferritin [Mass/Vol] 23.3 ng/mL 11.0-306.8 [facility] Free K+L LT Chains, Qn, Son 01-10-2023 Free Kelford Light Chains, S 42.6 mg/L High 3.3-19.4 [facility] Comment on above: Performed By: #### S PE, KAPPA, ABDELRAHMAN SERUM ####[facility] ,#### TIM, CBC, CMP, FE and TIBC ####[address] Free Lambda Light Chains, S 19.4 mg/L Normal 5.7-26.3 [facility] Comment on above: Performed By: #### S PE, KAPPA, ABDELRAHMAN SERUM ####[facility] ,#### TIM, CBC, CMP, FE and TIBC ####[place] [id number] [facility] Kelford/Lambda Ratio, S 2.20 High 0.26-1.65 [facility] Comment on above: Result Comment: Perf ormed at: - [facility] [address] [place], [place] [id number] Tissue Inserter: Rio Huber PhD, Phone: [phone] PERFORMED BY: [facility] [address] [place] [address] PATHOLOGIST PROTOTYPER RACHELLE MACDONALD M.D. Performed By: #### S PE, KAPPA, ABDELRAHMAN SERUM ####[facility] ,#### TIM, CBC, CMP, FE and TIBC ####[facility] [id number] Globulin Calc (S) [Mass/Vol] Ordered By: Tatiana Christianson on 01-10-2023 Globulin (S) [Mass/Vol] 2.3 g/dL [facility] Glucose [Mass/volume] in Ser um or PlasmaOrdered By: Tatiana Christianson on 01-10-2023 Glucose [Mass/Vol] 170 mg/dL 70-100 [facility] Comment on above: ADA recommended refe rence rangeRandom Glucose Reference Range is dependent on time and content of last meal. Glucose of more than 200 mg/dL in a nonstressed, ambulatory subject supports the diagnosis of Diabetes Mellitus. Hematocrit Auto (Bld) [Volum e fraction]Ordered By: Tatiana Christianson on 01-10-2023 Hematocrit (Bld) [Volume fraction] 35.4 % 34.0-46.4 [facility] Hemoglobin [Mass/volume] in BloodOrdered By: Tatiana Christianson on 01-10-2023 Hemoglobin (Bld) [Mass/Vol] 11.7 g/dL 11.8-15.4 [facility] IgA [Mass/volume] in Serum o r PlasmaOrdered By: Tatiana Christianson on 01-10-2023 IgA [Mass/Vol] 60 mg/dL 64-422 [facility] IgG [Mass/volume] in Serum o r PlasmaOrdered By: Tatiana Christianson on 01-10-2023 IgG [Mass/Vol] 826 mg/dL [phone] [facility] IgM [Mass/volume] in Serum o r PlasmaOrdered By: Tatiana Christianson on 01-10-2023 IgM [Mass/Vol] 61 mg/dL -217 [facility] Immunofixation,Serumon 01-10 Immunofixation, Serum Comment: Normal . [facility] Comment on above: Result Comment: Pres ence of monoclonal protein is unclear at this time. Suggest repeat in 3 to 6 months if clinically indicated. Performed By: #### S PE, KAPPA, ABDELRAHMAN SERUM ####[facility] ,#### TIM, CBC, CMP, FE and TIBC ####[address] [address] [facility] Immunoglobulin A, Serum 60 mg/dL Low 64-422 [facility] Comment on above: Performed By: #### S PE, KAPPA, ABDELRAHMAN SERUM ####[facility] ,#### TIM, CBC, CMP, FE and TIBC ####[address] [address] [facility] Immunoglobulin G 826 mg/dL Normal [phone] [facility] Comment on above: Performed By: #### S PE, KAPPA, ABDELRAHMAN SERUM ####[facility] ,#### TIM, CBC, CMP, FE and TIBC ####[address] [address] [facility] Immunoglobulin M, Serum 61 mg/dL Normal 26-217 [facility] Comment on above: Performed By: #### S PE, KAPPA, ABDELRAHMAN SERUM ####[facility] ,#### TIM, CBC, CMP, FE and TIBC ####[place] [id number] [facility] Immunoglobulin light chains. kappa.free [Mass/volume] in SerumOrdered By: Tatiana Christianson on 01-10-2023 Immunoglobulin light chains.kappa.free (S) [Mass/Vol] 42.6 mg/L 3.3-19.4 [facility] Immunoglobulin light chains. kappa.free/Immunoglobulin light chains.lambda.free [MassOrdered By: Tatiana Christianson on 01-10-2023 Immunoglobulin light chains.kappa.free/Immu noglobulin light chains.lambda.free (S) [Mass ratio] 2.20 0.26-1.65 [facility] Comment on above: Performed at: - [address] [id number] Director: Rio Huber PhD, Phone: [phone] Immunoglobulin light chains. lambda.free [Mass/volume] in Serum or PlasmaOrdered By: Tatiana Christianson on 01-10-2023 Immunoglobulin light chains.lambda.free [Mass/Vol] 19.4 mg/L 5.7-26.3 [facility] Iron [Mass/volume] in Serum or PlasmaOrdered By: Tatiana Christianson on 01-10-2023 Iron [Mass/Vol] 63 ug/dL 50-212 [facility] Iron and TIBC Profileon 12-18 % Iron Saturation 17.6 % Low 20-50 [facility] Comment on above: Performed By: #### S PE, KAPPA, ABDELRAHMAN SERUM ####[facility] ,#### TIM, CBC, CMP, FE and TIBC ####[address] Iron [Mass/Vol] 63 ug/dL Normal 50-212 [facility] Comment on above: Performed By: #### S PE, KAPPA, ABDELRAHAMN SERUM ####[facility] ,#### TIM, CBC, CMP, FE and TIBC ####[address] [address] [facility] Total Iron Binding Capacity 357 ug/dL Normal 255-450 [facility] Comment on above: Performed By: #### S PE, KAPPA, ABDELRAHMAN SERUM ####[facility] ,#### TIM, CBC, CMP, FE and TIBC ####[place] [id number] [facility] Transferrin [Mass/Vol] 255 mg/dL Normal 203-362 [facility] Comment on above: Performed By: #### S PE, KAPPA, ABDELRAHMAN SERUM ####[facility] ,#### TIM, CBC, CMP, FE and TIBC ####[facility] [address] [place] [address] [facility] Iron binding capacity [Mass/ volume] in Serum or PlasmaOrdered By: Tatiana Christianson on 01-10-2023 Iron binding capacity [Mass/Vol] 357 ug/dL 255-450 [facility] Iron saturation [Mass Fracti on] in Serum or PlasmaOrdered By: Tatiana Christianson on 01-10-2023 Iron saturation [Mass fraction] 17.6 % 20-50 [facility] Leukocytes [#/volume] correc laurel for nucleated erythrocytes in Blood by Automated counOrdered By: Tatiana Christianson on 01-10-2023 WBC corrected for nucl RBC Auto (Bld) [#/Vol] 8.5 10*3/uL 3.8-11.6 [facility] Lymphocytes Auto (Bld) [#/Vo l]Ordered By: Tatiana Christianson on 01-10-2023 Lymphocytes (Bld) [#/Vol] 2.2 10*3/uL 1.00-4.8 [facility] Lymphocytes/100 WBC Auto (Bl d)Ordered By: Tatiana Christianson on 01-10-2023 Lymphocytes/100 WBC (Bld) 25.3 % . [facility] MCH Auto (RBC) [Entitic mass ]Ordered By: Tatiana Christianson on 01-10-2023 MCH (RBC) [Entitic mass] 28.6 pg 24.7-34.3 [facility] MCHC Auto (RBC) [Mass/Vol]Or dered By: Tatiana Christianson on 01-10-2023 MCHC (RBC) [Mass/Vol] 33.1 g/dL 32.0-35.0 [facility] MCV Auto (RBC) [Entitic vol] Ordered By: Tatiana Christianson on 01-10-2023 MCV (RBC) [Entitic vol] 86.3 fL 80-100 [facility] Monocytes Auto (Bld) [#/Vol] Ordered By: Tatiana Christianson on 01-10-2023 Monocytes (Bld) [#/Vol] 0.7 10*3/uL 0.0-0.8 [facility] Monocytes/100 WBC Auto (Bld) Ordered By: Tatiana Christianson on 01-10-2023 Monocytes/100 WBC (Bld) 8.6 % . [facility] Neutrophils Auto (Bld) [#/Vo l]Ordered By: Tatiana Christianson on 01-10-2023 Neutrophils (Bld) [#/Vol] 5.3 10*3/uL 1.8-7.7 [facility] Neutrophils/100 WBC Auto (Bl d)Ordered By: Tatiana Christianson on 01-10-2023 Neutrophils/100 WBC (Bld) 62.3 % . [facility] No Panel InformationOrdered By: Tatiana Christianson on 01-10-2023 Estimated GFR (CKD-EPI) 52.323 mL/Min [facility] Creatinine Clearance (Chem 35.85 [facility] Protein Electrophoresis M-Gabriel Comment: g/dL Not Observed [facility] Comment on above: SPE shows an asymmet rical gamma. Protein Electrophoresis Note See comment . [facility] Comment on above: Protein electrophore sis scan will follow via computer,mail, or superintendent oil well services delivery. Serum Immunofixation Comment: . [facility] Comment on above: Presence of monoclon al protein is unclear at this time. Suggestrepeat in 3 to 6 months if clinically indicated. Nucleated erythrocytes [Pres ence] in Blood by Automated countOrdered By: Tatiana Christianson on 01-10-2023 Nucleated RBC Auto Ql (Bld) 0.1 /100{WBC} 0-0.5 [facility] Platelet mean volume Auto (B ld) [Entitic vol]Ordered By: Tatiana Christianson on 01-10-2023 Platelet mean volume (Bld) [Entitic vol] 9.6 fL 6.3-10.7 [facility] Platelets Auto (Bld) [#/Vol] Ordered By: Tatiana Christianson on 01-10-2023 Platelets (Bld) [#/Vol] 231 10*3/uL 150-450 [facility] Potassium [Moles/volume] in Serum or PlasmaOrdered By: Tatiana Christianson on 01-10-2023 Potassium [Moles/Vol] 4.8 mmol/L 3.5-5.1 [facility] Protein Electrophoresis, Ser umon 01-10-2023 Albumin [Mass/Vol] 3.8 g/dL Normal 2.9-4.4 [facility] Comment on above: Performed By: #### S PE, KAPPA, ABDELRAHMAN SERUM ####[facility] ,#### TIM, CBC, CMP, FE and TIBC ####[address] Albumin/Globulin [Mass ratio] 1.2 {ratio} Normal 0.7-1.7 [facility] Comment on above: Performed By: #### S PE, KAPPA, ABDELRAHMAN SERUM ####[facility] ,#### TIM, CBC, CMP, FE and TIBC ####[address] Uitot-2-Fspzjkjq 0.3 g/dL Normal 0.0-0.4 [facility] Comment on above: Performed By: #### S PE, KAPPA, ABDELRAHMAN SERUM ####[facility] ,#### TIM, CBC, CMP, FE and TIBC ####[address] Wboam-8-[id number] 1.1 g/dL High 0.4-1.0 [facility] Comment on above: Performed By: #### S PE, KAPPA, ABDELRAHMAN SERUM ####[facility] ,#### TIM, CBC, CMP, FE and TIBC ####[place] [address] [place] Beta Globulin 0.9 g/dL Normal 0.7-1.3 [facility] Comment on above: Performed By: #### S PE, KAPPA, ABDELRAHMAN SERUM ####[facility] ,#### TIM, CBC, CMP, FE and TIBC ####[address] Gamma Globulin 0.9 g/dL Normal 0.4-1.8 [facility] Comment on above: Performed By: #### S PE, KAPPA, ABDELRAHMAN SERUM ####[facility] ,#### TIM, CBC, CMP, FE and TIBC ####[address] Globulin (S) [Mass/Vol] 3.1 g/dL Normal 2.2-3.9 [facility] Comment on above: Performed By: #### S PE, KAPPA, ABDELRAHMAN SERUM ####[facility] ,#### TIM, CBC, CMP, FE and TIBC ####[address] M-Gabriel Comment: Normal Not Observed [facility] Comment on above: Result Comment: SPE shows an asymmetrical gamma. Performed By: #### S PE, KAPPA, ABDELRAHMAN SERUM ####[facility] ,#### TIM, CBC, CMP, FE and TIBC ####[address] SPE-Note Normal . [facility] Comment on above: Result Comment: Prot ein electrophoresis scan will follow via computer, mail, or superintendent oil well services delivery. Performed By: #### S PE, KAPPA, ABDELRAHMAN SERUM ####[facility] ,#### TIM, CBC, CMP, FE and TIBC ####[address] Protein [Mass/volume] in Ser um or PlasmaOrdered By: Tatiana Christianson on 01-10-2023 Protein [Mass/Vol] 6.9 g/dL 6.0-8.5 [facility] RBC Auto (Bld) [#/Vol]Ordere d By: Tatiana Christianson on 01-10-2023 RBC (Bld) [#/Vol] 4.11 10*6/uL 3.60-5.00 [facility] Serum globulin measurement ( mass/volume)Ordered By: Tatiana Christianson on 01-10-2023 Globulin (S) [Mass/Vol] 3.1 g/dL 2.2-3.9 [facility] Serum or plasma albumin/glob ulin mass ratioOrdered By: Tatiana Christianson on 01-10-2023 Albumin/Globulin [Mass ratio] 2.0 {ratio} [facility] Albumin/Globulin [Mass ratio] 1.2 {ratio} 0.7-1.7 [facility] Serum or plasma alpha 1 glob ulin measurement by electrophoresis (mass/volume)Ordered By: Tatiana Christianson on 01-10-2023 Alpha 1 globulin Elph [Mass/Vol] 0.3 g/dL 0.0-0.4 [facility] Serum or plasma alpha 2 glob ulin measurement by electrophoresis (mass/volume)Ordered By: Tatiana Christianson on 01-10-2023 Alpha 2 globulin Elph [Mass/Vol] 1.1 g/dL 0.4-1.0 [facility] Serum or plasma anion gap de terminationOrdered By: Tatiana Christianson on 01-10-2023 Anion gap [Moles/Vol] 10.9 mmol/L 6.0-15.0 [facility] Serum or plasma beta globuli n measurement by electrophoresis (mass/volume)Ordered By: Tataina Christianson on 01-10-2023 Beta globulin Elph [Mass/Vol] 0.9 g/dL 0.7-1.3 [facility] Serum or plasma gamma globul in measurement by electrophoresis (mass/volume)Ordered By: Tatiana Christianson on 01-10-2023 Gamma globulin Elph [Mass/Vol] 0.9 g/dL 0.4-1.8 [facility] Sodium [Moles/volume] in Ser um or PlasmaOrdered By: Tatiana Christianson on 01-10-2023 Sodium [Moles/Vol] 138 mmol/L 136-145 [facility] Transferrin [Mass/volume] in Serum or PlasmaOrdered By: Tatiana Christianson on 01-10-2023 Transferrin [Mass/Vol] 255 mg/dL 203-362 [facility] Urea nitrogen [Mass/volume] in Serum or PlasmaOrdered By: Tatiana Christianson on 01-10-2023 Urea nitrogen [Mass/Vol] 20 mg/dL 7-25 [facility] WBC Auto (Bld) [#/Vol]Ordere d By: Tatiana Christianson on 01-10-2023 WBC (Bld) [#/Vol] 8.5 10*3/uL 3.8-11.6 [facility] Albumin [Mass/volume] in Ser um or PlasmaOrdered By: Jarrett Loyola on 07-11-2022 Albumin [Mass/Vol] 4.3 g/dL 3.2-5.5 [facility] Basophils Auto (Bld) [#/Vol] Ordered By: Jarrett Loyola on 07-11-2022 Basophils (Bld) [#/Vol] 0.1 10*3/uL 0.0-0.2 [facility] Basophils/100 WBC Auto (Bld) Ordered By: Jarrett Loyola on 07-11-2022 Basophils/100 WBC (Bld) 0.7 % . [facility] CT biopsyOrdered By: Jarrett Loyola on 07-11-2022 Transferrin [Mass/Vol] 256 mg/dL 180-380 [facility] Creatinine and Glomerular fi ltration rate.predicted panel (S/P/Bld)Ordered By: Jarrett Loyola on 07-11-2022 Creatinine [Mass/Vol] 1.30 mg/dL 0.44-1.03 [facility] Eosinophils Auto (Bld) [#/Vo l]Ordered By: Jarrett Loyola on 07-11-2022 Eosinophils (Bld) [#/Vol] 0.3 10*3/uL 0.0-0.45 [facility] Eosinophils/100 WBC Auto (Bl d)Ordered By: Jarrett Loyola on 07-11-2022 Eosinophils/100 WBC (Bld) 3.1 % . [facility] Erythrocyte distribution wid th Auto (RBC) [Ratio]Ordered By: Jarrett Loyola on 07-11-2022 Erythrocyte distribution width (RBC) [Ratio] 13.7 % 11.9-15.3 [facility] Estimated glomerular filtrat ion rate (GFR) non- AmericanOrdered By: Jarrett Loyola on 07-11-2022 GFR/1.73 sq M.predicted among non-blacks MDRD (S/P/Bld) [Vol rate/Area] 40 mL/Min [facility] Ferritin [Mass/volume] in Se rum or PlasmaOrdered By: Jarrett Loyola on 07-11-2022 Ferritin [Mass/Vol] 53.8 ng/mL 11-306.8 [facility] Globulin Calc (S) [Mass/Vol] Ordered By: Jarrett Loyola on 07-11-2022 Globulin (S) [Mass/Vol] 2.5 g/dL [facility] Glucose mean value [Mass/vol ume] in Blood Estimated from glycated hemoglobinOrdered By: Ramin De Paz on 07-11-2022 Average glucose Estimated from glycated hemoglobin (Bld) [Mass/Vol] 171 mg/dL [facility] Hematocrit Auto (Bld) [Volum e fraction]Ordered By: Jarrett Loyola on 07-11-2022 Hematocrit (Bld) [Volume fraction] 38.0 % 34.0-46.4 [facility] Hemoglobin A1c percentageOrd ered By: Ramin De Paz on 07-11-2022 HbA1c (Bld) [Mass fraction] 7.6 % 4.3-5.6 [facility] Comment on above: Increased risk for d iabetes: 5.7 - 6.4diabetes: >6.4glycemic control for adults with diabetes: <7.0 Hemoglobin [Mass/volume] in BloodOrdered By: Jarrett Loyola on 07-11-2022 Hemoglobin (Bld) [Mass/Vol] 12.4 g/dL 11.8-15.4 [facility] Iron [Mass/volume] in Serum or PlasmaOrdered By: Jarrett Loyola on 07-11-2022 Iron [Mass/Vol] 69 ug/dL 40-150 [facility] Iron binding capacity [Mass/ volume] in Serum or PlasmaOrdered By: Jarrett Loyola on 07-11-2022 Iron binding capacity [Mass/Vol] 358 ug/dL 255-450 [facility] Iron saturation [Mass Fracti on] in Serum or PlasmaOrdered By: Jarrett Loyola on 07-11-2022 Iron saturation [Mass fraction] 19.3 % 20-50 [facility] Leukocytes [#/volume] correc laurel for nucleated erythrocytes in Blood by Automated counOrdered By: Jarrett Loyola on 07-11-2022 WBC corrected for nucl RBC Auto (Bld) [#/Vol] 9.6 10*3/uL 3.8-11.6 [facility] Lymphocytes Auto (Bld) [#/Vo l]Ordered By: Jarrett Loyola on 07-11-2022 Lymphocytes (Bld) [#/Vol] 2.6 10*3/uL 1.00-4.8 [facility] Lymphocytes/100 WBC Auto (Bl d)Ordered By: Jarrett Loyola on 07-11-2022 Lymphocytes/100 WBC (Bld) 27.7 % . [facility] MCH Auto (RBC) [Entitic mass ]Ordered By: Jarrett Loyola on 07-11-2022 MCH (RBC) [Entitic mass] 29.1 pg 24.7-34.3 [facility] MCHC Auto (RBC) [Mass/Vol]Or dered By: Jarrett Loyola on 07-11-2022 MCHC (RBC) [Mass/Vol] 32.7 g/dL 32.0-35.0 [facility] MCV Auto (RBC) [Entitic vol] Ordered By: Jarrett Loyola on 07-11-2022 MCV (RBC) [Entitic vol] 88.8 fL 80-100 [facility] Monocytes Auto (Bld) [#/Vol] Ordered By: Jarrett Loyola on 07-11-2022 Monocytes (Bld) [#/Vol] 0.8 10*3/uL 0.0-0.8 [facility] Monocytes/100 WBC Auto (Bld) Ordered By: Jarrett Loyola on 07-11-2022 Monocytes/100 WBC (Bld) 8.0 % . [facility] Neutrophils Auto (Bld) [#/Vo l]Ordered By: Jarrett Loyola on 07-11-2022 Neutrophils (Bld) [#/Vol] 5.8 10*3/uL 1.8-7.7 [facility] Neutrophils/100 WBC Auto (Bl d)Ordered By: Jarrett Loyola on 07-11-2022 Neutrophils/100 WBC (Bld) 60.5 % . [facility] No Panel InformationOrdered By: Jarrett Loyola on 07-11-2022 Estimated GFR () 48 mL/Min [facility] Comment on above: GFR estimated refere nce range: According to KDOQI guidelines, <60 ml/min/1.73m2 is sufficient to diagnose a patient with chronic kidney disease. Pharmacy Creatinine Clearance (Chem 31.24 [facility] Nucleated erythrocytes [Pres ence] in Blood by Automated countOrdered By: Jarrett Loyola on 07-11-2022 Nucleated RBC Auto Ql (Bld) 0.1 /100{WBC} 0-0.5 [facility] Platelet mean volume Auto (B ld) [Entitic vol]Ordered By: Jarrett Loyola on 07-11-2022 Platelet mean volume (Bld) [Entitic vol] 9.7 fL 6.3-10.7 [facility] Platelets Auto (Bld) [#/Vol] Ordered By: Jarrett Loyola on 07-11-2022 Platelets (Bld) [#/Vol] 259 10*3/uL 150-450 [facility] Protein [Mass/volume] in Ser um or PlasmaOrdered By: Jarrett Loyola on 07-11-2022 Protein [Mass/Vol] 6.8 g/dL 6.1-7.9 [facility] RBC Auto (Bld) [#/Vol]Ordere d By: Jarrett Loyola on 07-11-2022 RBC (Bld) [#/Vol] 4.27 10*6/uL 3.60-5.00 [facility] Serum or plasma alanine landaverde otransferase measurement without P-5'-P (enzymatic activiOrdered By: Jarrett Loyola on 07-11-2022 ALT No additional P-5'-P [Catalytic activity/Vol] 21 U/L 10-60 [facility] Serum or plasma albumin/glob ulin mass ratioOrdered By: Jarrett Loyola on 07-11-2022 Albumin/Globulin [Mass ratio] 1.7 {ratio} [facility] Serum or plasma alkaline jesus sphatase measurement (enzymatic activity/volume)Ordered By: Jarrett Loyola on 07-11-2022 ALP [Catalytic activity/Vol] 81 U/L 32-92 [facility] Serum or plasma anion gap de terminationOrdered By: Jarrett Loyola on 07-11-2022 Anion gap [Moles/Vol] 17.0 mmol/L 6.0-15.0 [facility] Serum or plasma aspartate am inotransferase measurement (enzymatic activity/volume)Ordered By: Jarrett Loyola on 07-11-2022 AST [Catalytic activity/Vol] 19 U/L 10-42 [facility] Serum or plasma calcium jimmy urement (mass/volume)Ordered By: Jarrett Loyola on 07-11-2022 Calcium [Mass/Vol] 10.6 mg/dL 8.2-10.2 [facility] Serum or plasma chloride lacho surement (moles/volume)Ordered By: Jarrett Loyola on 07-11-2022 Chloride [Moles/Vol] 99 mmol/L 95-114 [facility] Serum or plasma glucose jimmy urement (mass/volume)Ordered By: Jarrett Loyola on 07-11-2022 Glucose [Mass/Vol] 155 mg/dL 70-100 [facility] Comment on above: ADA recommended refe rence rangeRandom Glucose Reference Range is dependent on time and content of last meal. Glucose of more than 200 mg/dL in a nonstressed, ambulatory subject supports the diagnosis of Diabetes Mellitus. Serum or plasma potassium me asurement (moles/volume)Ordered By: Jarrett Loyola on 07-11-2022 Potassium [Moles/Vol] 4.8 mmol/L 3.5-5.1 [facility] Serum or plasma sodium measu rement (moles/volume)Ordered By: Jarrett Loyola on 07-11-2022 Sodium [Moles/Vol] 137 mmol/L 136-146 [facility] Serum or plasma total biliru bin measurement (mass/volume)Ordered By: Jarrett Loyola on 07-11-2022 Bilirubin [Mass/Vol] 0.5 mg/dL 0.3-1.2 [facility] Serum or plasma total carbon dioxide measurement (moles/volume)Ordered By: Jarrett Loyola on 07-11-2022 CO2 [Moles/Vol] 25.8 mmol/L 22.0-30.0 [facility] Serum or plasma urea nitroge n measurement (mass/volume)Ordered By: Jarrett Loyola on 07-11-2022 Urea nitrogen [Mass/Vol] 23 mg/dL 03-11 [facility] WBC Auto (Bld) [#/Vol]Ordere d By: Jarrett Loyola on 07-11-2022 WBC (Bld) [#/Vol] 9.6 10*3/uL 3.8-11.6 [facility] CALCIUM 24 HR URINEon 2021 CALC, 24 HR UR 134.0 mg/24 hr Normal 100.0-300. 0 [facility] Comment on above: Performed By: #### B MP #### [facility] [address] [address] [address] Jessie Cheney UR CALCIUM 6.7 mg/dL Normal 5.1-21.0 [facility] Comment on above: Performed By: #### B MP #### [facility] [address] [address] [address] Jessie Cheney UR TOT VOL 2000 ml/24 HR Normal [facility] Comment on above: Performed By: #### B MP #### [facility] [address] [address] [address] Jessie Cheney PTH INTACTon 05-31-2022 PTH, Intact 37 pg/mL Normal 15-65 [facility] Comment on above: Performed By: #### B MP #### [facility] [address] [place] [address] Dr. Jessie Cheney PHOSPHORUSon 05-30-2022 Phosphate [Mass/Vol] 2.6 mg/dL Normal 2.6-4.7 [facility] Comment on above: Performed By: #### T SH, FT3 #### [facility] [address] [place] [address] Dr. Jessie Cheney PROF CHEM 8 (BAS METB)on Anion gap [Moles/Vol] 11.6 mmol/L Normal [facility] Comment on above: Performed By: #### T SH, FT3 #### [facility] [address] [place] [address] Dr. Jessie Cheney Calcium [Mass/Vol] 10.3 mg/dL Critically high 8.5-10.1 [facility] Comment on above: Performed By: #### T SH, FT3 #### [facility] [address] [place] [address] Dr. Jessie Cheney Chloride [Moles/Vol] 99 mmol/L Normal 98-107 [facility] Comment on above: Performed By: #### T SH, FT3 #### [facility] [address] [place] [address] Dr. Jessie Cheney CO2 [Moles/Vol] 27.8 mmol/L Normal 21.0-32.0 [facility] Comment on above: Performed By: #### T SH, FT3 #### [facility] [address] [place] [address] Dr. Jessie Cheney Creatinine [Mass/Vol] 1.26 mg/dL Critically high 0.55-1.02 [facility] Comment on above: Performed By: #### T SH, FT3 #### [facility] [address] [place] [address] Dr. Jessie Cheney EGFR-AF IRISH 50 mL/min/1.73m2 Critically low >=60 [facility] Comment on above: Performed By: #### T SH, FT3 #### [facility] [address] [place] [address] Dr. Jessie Cheney EGFR-NON AF IRISH 41 mL/min/1.73m2 Critically low >=60 [facility] Comment on above: Performed By: #### T SH, FT3 #### [facility] [address] [place] [address] Dr. Jessie Cheney Glucose [Mass/Vol] 220 mg/dL Critically high 74-106 [facility] Comment on above: Performed By: #### T SH, FT3 #### [facility] [address] [place] [address] Dr. Jessie Cheney Potassium [Moles/Vol] 4.4 mmol/L Normal 3.5-5.1 [facility] Comment on above: Performed By: #### T KIRA, FT3 #### [facility] [address] [place] [address] Dr. Jessie Cheney Sodium [Moles/Vol] 134 mmol/L Critically low 136-145 [facility] Comment on above: Performed By: #### T KIRA, FT3 #### [facility] [address] [place] [address] Dr. Jessie Cheney Urea nitrogen [Mass/Vol] 27.0 mg/dL Critically high 7.0-18.0 [facility] Comment on above: Performed By: #### T KIRA, FT3 #### [facility] [address] [place] [address] Dr. Jessie Cheney Urea nitrogen/Creatinine [Mass ratio] 21.4 mg/mg Normal [facility] Comment on above: Performed By: #### T KIRA, FT3 #### [facility] [address] [place] [address] Dr. Jessie Cheney VITAMIN D 25 OHon 05-30-2022 VIT D 25-OH 28.7 ng/mL Normal [facility] Comment on above: Performed By: #### B MP #### [facility] [address] [place] [address] Dr. Jessie Cheney VIT D RANGES SEE BELOW Normal [facility] Comment on above: Result Comment: <20 ng/mL Vit D deficient 20 - <30 ng/mL Vit D insufficient 30 - 100 ng/mL Vit D sufficient >100 ng/mL Potential Toxicity Performed By: #### B MP #### [facility] [address] [address] [address] Jessie Cheney MICROALBUMIN URINEon 022 Albumin, Urine 154.3 ug/mL Normal Not Estab. [facility] Comment on above: Performed By: #### B MP #### [facility] [address] [address] [address] Jessie Cheney GLYCOHEMOGLOBIN A1Con 2021 ADA RECOMMENDATION SEE BELOW Normal [facility] Comment on above: Result Comment: ADA RECOMMENDED LIMIT 4.0 - 6.0 ADA THERAPEUTIC TARGET < 7.0 ACTION SUGGESTED > 7.0 Performed By: #### A 1C #### [facility] [address] [address] [address] Jessie Cheney Glucose [Mass/Vol] 209 mg/dL Normal [facility] Comment on above: Performed By: #### A 1C #### [facility] [address] [address] [address] Jessie Cheney HbA1c (Bld) [Mass fraction] 8.9 % Critically high 4.5-6.2 [facility] Comment on above: Performed By: #### A 1C #### [facility] [address] [address] [address] Jessie Cheney MG MAMM SCREEN 3D RAMILA CADon 03-15-2022 MG MAMM SCREEN 3D RAMILA CAD Patient: MAAME VELASCO Exam Date: 03/15/2022 : 1945 Gender:F Ordering : DR RAMIN DE PAZ D.O. Admission #: [id number] Family : Order #: [id number] CLICK HERE TO VIEW EXAM RADIOLOGY REPORT [...] Malik MD on 03/16/2022 at 07:44 Normal [facility] PROF CHEM 8 (BAS METB)on Anion gap [Moles/Vol] 12.4 mmol/L Normal [facility] Comment on above: Performed By: #### B MP #### [facility] [address] [place] [address] Dr. Jessie Cheney Calcium [Mass/Vol] 10.4 mg/dL Critically high 8.5-10.1 [facility] Comment on above: Performed By: #### B MP #### [facility] [address] [place] [address] Dr. Jessie Cheney Chloride [Moles/Vol] 97 mmol/L Critically low 98-107 [facility] Comment on above: Performed By: #### B MP #### [facility] [address] [place] [address] Dr. Jessie Cheney CO2 [Moles/Vol] 30.8 mmol/L Normal 21.0-32.0 [facility] Comment on above: Performed By: #### B MP #### [facility] [address] [place] [address] Dr. Jessie Cheney Creatinine [Mass/Vol] 1.26 mg/dL Critically high 0.55-1.02 [facility] Comment on above: Performed By: #### B MP #### [facility] [address] [place] [address] Dr. Jessie Cheney EGFR-AF IRISH 50 mL/min/1.73m2 Critically low >=60 [facility] Comment on above: Performed By: #### B MP #### [facility] [address] [place] [address] Dr. Jessie Cheney EGFR-NON AF IRISH 41 mL/min/1.73m2 Critically low >=60 [facility] Comment on above: Performed By: #### B MP #### [facility] [address] [address] [address] Jessie Cheney Glucose [Mass/Vol] 288 mg/dL Critically high 74-106 T [facility] Comment on above: Performed By: #### B MP #### [facility] [address] [address] [address] Jessie Cheney Potassium [Moles/Vol] 4.2 mmol/L Normal 3.5-5.1 [facility] Comment on above: Performed By: #### B MP #### [facility] [address] [address] [address] Jessie Cheney Sodium [Moles/Vol] 136 mmol/L Normal 136-145 [facility] Comment on above: Performed By: #### B MP #### [facility] [address] [address] [address] Jessie Cheney Urea nitrogen [Mass/Vol] 21.0 mg/dL Critically high 7.0-18.0 [facility] Comment on above: Performed By: #### B MP #### [facility] [address] [address] [address] Jessie Cheney Urea nitrogen/Creatinine [Mass ratio] 16.7 mg/mg Normal [facility] Comment on above: Performed By: #### B MP #### [facility] [address] [address] [address] Jessie Cheney XR DEXA BONE DENSITYon [...] RBC/100 WBC (Bld) [Ratio] 0.0 % 0-0.5 [facility] Covid-19 PCR (CVDTBH)on 12-18 SARS-CoV-2 (COVID-19) RNA [...] for this test is supported by the [place] of Health and Human Service's declaration that [...] #### B MP #### [facility] [address] [place] [address] Dr. Jessie Cheney Basophils Auto (Bld) [#/Vol] Ordered By: Jarrett Loyola on 01-05-2022 Basophils (Bld) [#/Vol] 0.0 10*3/uL 0.0-0.2 [facility] Basophils/100 WBC Auto (Bld) Ordered By: Jarrett Loyola on 01-05-2022 Basophils/100 WBC (Bld) 0.4 % . [facility] Blood hemoglobin measurement (mass/volume)Ordered By: Jarrett Loyola on 01-05-2022 Hemoglobin (Bld) [Mass/Vol] 12.2 g/dL 11.8-15.4 [facility] Blood leukocytes automated c ount (number/volume)Ordered By: Jarrett Loyola on 01-05-2022 WBC (Bld) [#/Vol] 11.4 10*3/uL 4.5-11.0 [facility] Body fluid albumin measureme nt (mass/volume)Ordered By: Jarrett Loyola on 01-05-2022 Albumin (Body fld) [Mass/Vol] 4.1 g/dL 3.2-5.5 [facility] Creatinine and Glomerular fi ltration rate.predicted panel (S/P/Bld)Ordered By: Jarrett Loyola on 01-05-2022 Creatinine [Mass/Vol] 1.23 mg/dL 0.44-1.03 [facility] Eosinophils Auto (Bld) [#/Vo l]Ordered By: Jarrett Loyola on 01-05-2022 Eosinophils (Bld) [#/Vol] 0.2 10*3/uL 0.0-0.45 [facility] Eosinophils/100 WBC Auto (Bl d)Ordered By: Jarrett Loyola on 01-05-2022 Eosinophils/100 WBC (Bld) 1.9 % . [facility] Erythrocyte distribution wid th Auto (RBC) [Ratio]Ordered By: Jarrett Loyola on 01-05-2022 Erythrocyte distribution width (RBC) [Ratio] 13.7 % 11.9-15.3 [facility] Estimated glomerular filtrat ion rate (GFR) non- AmericanOrdered By: Jarrett Loyola on 01-05-2022 GFR/1.73 sq M.predicted among non-blacks MDRD (S/P/Bld) [Vol rate/Area] 42 mL/Min [facility] Globulin Calc (S) [Mass/Vol] Ordered By: Jarrett Loyola on 01-05-2022 Globulin (S) [Mass/Vol] 2.3 g/dL [facility] Hematocrit Auto (Bld) [Volum e fraction]Ordered By: Jarrett Loyola on 01-05-2022 Hematocrit (Bld) [Volume fraction] 36.6 % 34.0-46.4 [facility] - Hematology and Cell countsOrdered By: Jarrett Loyola on 01-05-2022 Nucleated RBC/100 WBC (Bld) [Ratio] 0.0 % 0-0.5 [facility] Lymphocytes Auto (Bld) [#/Vo l]Ordered By: Jarrett Loyola on 01-05-2022 Lymphocytes (Bld) [#/Vol] 2.2 10*3/uL 1.00-4.8 [facility] Lymphocytes/100 WBC Auto (Bl d)Ordered By: Jarrett Loyola on 01-05-2022 Lymphocytes/100 WBC (Bld) 19.4 % . [facility] MCH Auto (RBC) [Entitic mass ]Ordered By: Jarrett Loyola on 01-05-2022 MCH (RBC) [Entitic mass] 29.7 pg 24.7-34.3 [facility] MCHC Auto (RBC) [Mass/Vol]Or dered By: Jarrett Loyola on 01-05-2022 MCHC (RBC) [Mass/Vol] 33.3 g/dL 32.0-35.0 [facility] MCV Auto (RBC) [Entitic vol] Ordered By: Jarrett Loyola on 01-05-2022 MCV (RBC) [Entitic vol] 89.2 fL 80-100 [facility] Monocytes Auto (Bld) [#/Vol] Ordered By: Jarrett Loyola on 01-05-2022 Monocytes (Bld) [#/Vol] 0.8 10*3/uL 0.0-0.8 [facility] Monocytes/100 WBC Auto (Bld) Ordered By: Jarrett Loyola on 01-05-2022 Monocytes/100 WBC (Bld) 7.0 % . [facility] Neutrophils Auto (Bld) [#/Vo l]Ordered By: Jarrett Loyola on 01-05-2022 Neutrophils (Bld) [#/Vol] 8.1 10*3/uL 1.8-7.7 [facility] Neutrophils/100 WBC Auto (Bl d)Ordered By: Jarrett Loyola on 01-05-2022 Neutrophils/100 WBC (Bld) 71.3 % . [facility] No Panel InformationOrdered By: Jarrett Loyola on 01-05-2022 25-Hydroxy Vitamin D Total 26.0 ng/mL 30-100 [facility] Comment on above: VITAMIN D STATUS 25( [...] 2010; 96(7):1911-. Estimated GFR () 51 mL/Min [facility] Comment on above: GFR estimated refere nce range: According to KDOQI guidelines, <60 ml/min/1.73m2 is sufficient to diagnose a patient with chronic kidney disease. Pharmacy Creatinine Clearance (Chem 33.02 [facility] Platelet mean volume Auto (B ld) [Entitic vol]Ordered By: Jarrett Loyola on 01-05-2022 Platelet mean volume (Bld) [Entitic vol] 9.5 fL 6.3-10.7 [facility] Platelets Auto (Bld) [#/Vol] Ordered By: Jarrett Loyola on 01-05-2022 Platelets (Bld) [#/Vol] 258 10*3/uL 150-450 [facility] Protein [Mass/volume] in Ser um or PlasmaOrdered By: Jarrett Loyola on 01-05-2022 Protein [Mass/Vol] 6.4 g/dL 6.1-7.9 [facility] RBC Auto (Bld) [#/Vol]Ordere d By: Jarrett Loyola on 01-05-2022 RBC (Bld) [#/Vol] 4.10 10*6/uL 3.60-5.00 [facility] Serum or plasma alanine [place] otransferase measurement without P-5'-P (enzymatic activiOrdered By: Jarrett Loyola on 01-05-2022 ALT No additional P-5'-P [Catalytic activity/Vol] 23 U/L 10-60 [facility] Serum or plasma albumin/glob ulin mass ratioOrdered By: Jarrett Loyola on 01-05-2022 Albumin/Globulin [Mass ratio] 1.8 {ratio} [facility] Serum or plasma alkaline jesus sphatase measurement (enzymatic activity/volume)Ordered By: Jarrett Loyola on 01-05-2022 ALP [Catalytic activity/Vol] 105 U/L 32-92 [facility] Serum or plasma aspartate am inotransferase measurement (enzymatic activity/volume)Ordered By: Jarrett Loyola on 01-05-2022 AST [Catalytic activity/Vol] 17 U/L 10-42 [facility] Serum or plasma calcitriol m easurement (mass/volume)Ordered By: Jarrett Loyola on 01-05-2022 1,25-dihydroxyvitamin D3 [Mass/Vol] 49.7 pg/mL 24.8-81.5 [facility] Comment on above: Please note refere nce interval change Performed at: [place] [id number] Tissue Inserter: Uziel Granado MD, Phone: [phone] Please note refere nce interval changePerformed at: [place] [id number] Director: Uziel Granado MD, Phone: [phone] Serum or plasma calcium jimmy urement (mass/volume)Ordered By: Jarrett Loyola on 01-05-2022 Calcium [Mass/Vol] 10.3 mg/dL 8.2-10.2 [facility] Serum or plasma chloride lacho surement (moles/volume)Ordered By: Jarrett Loyola on 01-05-2022 Chloride [Moles/Vol] 95 mmol/L 95-114 [facility] Serum or plasma glucose jimmy urement (mass/volume)Ordered By: Jarrett Loyola on 01-05-2022 Glucose [Mass/Vol] 375 mg/dL 70-100 [facility] Comment on above: ADA recommended refe rence range Random Glucose Reference Range is dependent on time and content of last meal. Glucose of more than 200 mg/dL in a nonstressed, ambulatory subject supports the diagnosis of Diabetes Mellitus. Serum or plasma intact parat hyroid hormone measurement (mass/volume)Ordered By: Jarrett Loyola on 01-05-2022 Parathyrin.intact [Mass/Vol] 73.7 pg/mL [facility] Serum or plasma potassium me asurement (moles/volume)Ordered By: Jarrett Loyola on 01-05-2022 Potassium [Moles/Vol] 4.6 mmol/L 3.5-5.1 [facility] Serum or plasma sodium measu rement (moles/volume)Ordered By: Jarrett Loyola on 01-05-2022 Sodium [Moles/Vol] 130 mmol/L 136-146 [facility] Serum or plasma total biliru bin measurement (mass/volume)Ordered By: Jarrett Loyola on 01-05-2022 Bilirubin [Mass/Vol] 0.5 mg/dL 0.3-1.2 [facility] Serum or plasma total carbon dioxide measurement (moles/volume)Ordered By: Jarrett Loyola on 01-05-2022 CO2 [Moles/Vol] 24.4 mmol/L 22.0-30.0 [facility] Serum or plasma urea nitroge n measurement (mass/volume)Ordered By: Jarrett Loyola on 01-05-2022 Urea nitrogen [Mass/Vol] 23 mg/dL 9-[address] [facility] [address] biopsyOrdered By: Cora Leyva on 09-10-2021 Transferrin [Mass/Vol] 263 mg/dL 180-380 [facility] Ferritin [Mass/volume] in Se rum or PlasmaOrdered By: Cora Gaming on 09-10-2021 Ferritin [Mass/Vol] 83.0 ng/mL 11-306.8 [facility] Iron [Mass/volume] in Serum or PlasmaOrdered By: Cora Gaming on 09-10-2021 Iron [Mass/Vol] 64 ug/dL 40-150 [facility] Iron binding capacity [Mass/ volume] in Serum or PlasmaOrdered By: Cora Gaming on 09-10-2021 Iron binding capacity [Mass/Vol] 368 ug/dL 255-450 [facility] Iron saturation [Mass Fracti on] in Serum or PlasmaOrdered By: Cora Amberly on 09-10-2021 Iron saturation [Mass fraction] 17.0 % 20-50 [facility] No Panel InformationOrdered By: Cora Amberly on 09-10-2021 Large Platelets Slight [facility] Platelet Estimate Normal Normal [facility] Platelet Morphology Comment N/A [facility] RBC morphologyOrdered By: Arminda Gaming on 09-10-2021 RBC morphology finding Nom (Bld) Normal [facility] PROF CHEM 8 (BAS METB)on Anion gap [Moles/Vol] 11.6 mmol/L Normal [facility] Comment on above: Performed By: #### B MP #### [facility] [address] [place] [address] Dr. Jessie Cheney Calcium [Mass/Vol] 10.4 mg/dL Critically high 8.4-10.2 [facility] Comment on above: Performed By: #### B MP #### [facility] [address] [address] [address] Jessie Cheney Chloride [Moles/Vol] 101 mmol/L Normal 98-107 [facility] Comment on above: Performed By: #### B MP #### [facility] [address] [address] [address] Jessie Cheney CO2 [Moles/Vol] 27.8 mmol/L Normal 22.0-30.0 [facility] Comment on above: Performed By: #### B MP #### [facility] [address] [address] [address] Jessie Cheney Creatinine [Mass/Vol] 0.89 mg/dL Normal 0.52-1.04 [facility] Comment on above: Performed By: #### B MP #### [facility] [address] [address] [address] Jessie Cheney EGFR-AF IRISH >60 Normal >=60 [facility] Comment on above: Performed By: #### B MP #### [facility] [address] [address] [address] Jessie Cheney EGFR-NON AF IRISH >60 Normal >=60 [facility] Comment on above: Performed By: #### B MP #### [facility] [address] [place] [address] Dr. Jessie Cheney Glucose [Mass/Vol] 189 mg/dL Critically high 74-106 T [facility] Comment on above: Performed By: #### B MP #### [facility] [address] [place] [address] Dr. Jessie Cheney Potassium [Moles/Vol] 4.4 mmol/L Normal 3.4-5.0 [facility] Comment on above: Performed By: #### B MP #### [facility] [address] [place] [address] Dr. Jessie Cheney Sodium [Moles/Vol] 136 mmol/L Critically low 137-145 [facility] Comment on above: Performed By: #### B MP #### [facility] [address] [place] [address] Dr. Jessie Cheney Urea nitrogen [Mass/Vol] 14.0 mg/dL Normal 7.0-17.0 [facility] Comment on above: Performed By: #### B MP #### [facility] [address] [place] [address] Dr. Jessie Cheney Urea nitrogen/Creatinine [Mass ratio] 15.7 mg/mg Normal [facility] Comment on above: Performed By: #### B MP #### [facility] [address] [place] [address] Dr. Jessie Cheney CBC AUTO DIFFon 08-17-2021 BASO # 0.1 103/ul Normal 0.0-0.1 [facility] Comment on above: Performed By: #### T SH, FT3 #### [facility] [address] [place] [address] Dr. Jessie Cheney Basophils/100 WBC (Bld) 0.6 % Normal 0.2-2.0 [facility] Comment on above: Performed By: #### T SH, FT3 #### [facility] [address] [place] [address] Dr. Jessie Cheney EO # 0.3 103/ul Normal 0.0-0.7 [facility] Comment on above: Performed By: #### T KIRA, FT3 #### [facility] [address] [place] [address] Dr. Jessie Cheney Eosinophils/100 WBC (Bld) 2.6 % Normal 0.9-7.0 [facility] Comment on above: Performed By: #### T KIRA, FT3 #### [facility] [address] [place] [address] Dr. Jessie Cheney Erythrocyte distribution width (RBC) [Ratio] 16.7 % Critically high 11.0-15.0 [facility] Comment on above: Performed By: #### T KIRA, FT3 #### [facility] [address] [place] [address] Dr. Jessie Cheney Hematocrit (Bld) [Volume fraction] 39.9 % Normal 36.0-48.0 [facility] Comment on above: Performed By: #### T KIRA, FT3 #### [facility] [address] [place] [address] Dr. Jessie Cheney Hemoglobin (Bld) [Mass/Vol] 12.9 g/dL Normal 12.0-16.0 [facility] Comment on above: Performed By: #### T KIRA, FT3 #### [facility] [address] [place] [address] Dr. Jessie Cheney IG # 0.03 10e3/ul Normal 0.00-0.03 [facility] Comment on above: Performed By: #### T KIRA, FT3 #### [facility] [address] [place] [address] Dr. Jessie Cheney IG % 0.3 % Normal 0.0-0.5 [facility] Comment on above: Performed By: #### T KIRA, FT3 #### [facility] [address] [place] [address] Dr. Jessie Cheney LYMPH # 3.0 103/ul Normal 1.2-3.8 [facility] Comment on above: Performed By: #### T KIRA, FT3 #### [facility] [address] [place] [address] Dr. Jessie Cheney Lymphocytes/100 WBC (Bld) 30.6 % Normal 20.5-60.0 [facility] Comment on above: Performed By: #### T SH, FT3 #### [facility] [address] [place] [address] Dr. Jessie Cheney MANUAL DIFF REQ NO Normal [facility] Comment on above: Performed By: #### T SH, FT3 #### [facility] [address] [place] [address] Dr. Jessie Cheney MCH (RBC) [Entitic mass] 27.9 pg Normal 26.7-34.0 [facility] Comment on above: Performed By: #### T , FT3 #### [facility] [address] [place] [address] Dr. Jessie Cheney MCHC (RBC) [Mass/Vol] 32.3 g/dL Normal 29.9-35.2 [facility] Comment on above: Performed By: #### T , FT3 #### [facility] [address] [place] [address] Dr. Jessie Cheney MCV (RBC) [Entitic vol] 86.4 fL Normal 81.0-99.0 [facility] Comment on above: Performed By: #### T , FT3 #### [facility] [address] [place] [address] Dr. Jessie Cheney MONO # 0.9 103/ul Critically high 0.3-0.8 [facility] Comment on above: Performed By: #### T , FT3 #### [facility] [address] [place] [address] Dr. Jessie Cheney Monocytes/100 WBC (Bld) 8.7 % Normal 1.7-12.0 [facility] Comment on above: Performed By: #### T SH, FT3 #### [facility] [address] [place] [address] Dr. Jessie Cheney NEUT # 5.6 103/ul Normal 1.4-6.5 [facility] Comment on above: Performed By: #### T SH, FT3 #### [facility] [address] [place] [address] Dr. Jessie Cheney Neutrophils/100 WBC (Bld) 57.2 % Normal 43.0-75.0 [facility] Comment on above: Performed By: #### T SH, FT3 #### [facility] [address] [place] [address] Dr. Jessie Cheney Platelet mean volume (Bld) [Entitic vol] 9.9 fL Normal 9.5-13.5 [facility] Comment on above: Performed By: #### T SH, FT3 #### [facility] [address] [place] [address] Dr. Jessie Cheney PLT 221 103/ul Normal 150-450 [facility] Comment on above: Performed By: #### T SH, FT3 #### [facility] [address] [place] [address] Dr. Jessie Cheney RBC 4.62 106/ul Normal 4.20-5.40 [facility] Comment on above: Performed By: #### T SH, FT3 #### [facility] [address] [place] [address] Dr. Jessie Cheney WBC 9.8 103/ul Normal 4.0-11.0 [facility] Comment on above: Performed By: #### T SH, FT3 #### [facility] [address] [place] [address] Dr. Jessie Cheney PROF 14(COMP METB)on 022 Albumin [Mass/Vol] 4.0 g/dL Normal 3.5-5.0 [facility] Comment on above: Performed By: #### C MP #### [facility] [address] [place] [address] Dr. Jessie Cheney Albumin/Globulin [Mass ratio] 1.2 {ratio} Normal [facility] Comment on above: Performed By: #### C MP #### [facility] [address] [place] [address] Dr. Jessie Cheney ALP [Catalytic activity/Vol] 153 U/L Critically high 38-126 [facility] Comment on above: Performed By: #### C MP #### [facility] [address] [address] [address] Jessie Cheney ALT [Catalytic activity/Vol] 30 U/L Normal 9-52 [facility] Comment on above: Performed By: #### C MP #### [facility] [address] [address] [address] Jessie Cheney Anion gap [Moles/Vol] 10.7 mmol/L Normal [facility] Comment on above: Performed By: #### C MP #### [facility] [address] [address] [address] Jessie Cheney AST [Catalytic activity/Vol] 12 U/L Critically low 14-36 [facility] Comment on above: Performed By: #### C MP #### [facility] [address] [place] [address] Dr. Jessie Cheney Bilirubin [Mass/Vol] 0.3 mg/dL Normal 0.2-1.3 [facility] Comment on above: Performed By: #### C MP #### [facility] [address] [place] [address] Dr. Jessie Cheney Calcium [Mass/Vol] 10.7 mg/dL Critically high 8.4-10.2 [facility] Comment on above: Performed By: #### C MP #### [facility] [address] [place] [address] Dr. Jessie Cheney Chloride [Moles/Vol] 100 mmol/L Normal 98-107 [facility] Comment on above: Performed By: #### C MP #### [facility] [address] [place] [address] Dr. Jessie Cheney CO2 [Moles/Vol] 27.5 mmol/L Normal 22.0-30.0 [facility] Comment on above: Performed By: #### C MP #### [facility] [address] [place] [address] Dr. Jessie Cheney Creatinine [Mass/Vol] 1.07 mg/dL Critically high 0.52-1.04 [facility] Comment on above: Performed By: #### C MP #### [facility] [address] [address] [address] Jessie Cheney EGFR-AF IRISH >60 Normal >=60 [facility] Comment on above: Performed By: #### C MP #### [facility] [address] [address] [address] Jessie Cheney EGFR-NON AF IRISH 50 mL/min/1.73m2 Critically low >=60 [facility] Comment on above: Performed By: #### C MP #### [facility] [address] [address] [address] Jessie Cheney Globulin (S) [Mass/Vol] 3.4 g/dL Normal [facility] Comment on above: Performed By: #### C MP #### [facility] [address] [address] [address] Jessie Cheney Glucose [Mass/Vol] 217 mg/dL Critically high 74-106 T [facility] Comment on above: Performed By: #### C MP #### [facility] [address] [address] [address] Jessie Cheney Potassium [Moles/Vol] 4.2 mmol/L Normal 3.4-5.0 [facility] Comment on above: Performed By: #### C MP #### [facility] [address] [address] [address] Jessie Cheney Protein [Mass/Vol] 7.4 g/dL Normal 6.1-8.2 [facility] Comment on above: Performed By: #### C MP #### [facility] [address] [address] [address] Jessie Cheney Sodium [Moles/Vol] 134 mmol/L Critically low 137-145 Th [facility] Comment on above: Performed By: #### C MP #### [facility] [address] [address] [address] Jessie Cheney Urea nitrogen [Mass/Vol] 20.0 mg/dL Critically high 7.0-17.0 [facility] Comment on above: Performed By: #### C MP #### [facility] [address] [address] [address] Jessie Cheney Urea nitrogen/Creatinine [Mass ratio] 18.7 mg/mg Normal [facility] Comment on above: Performed By: #### C MP #### [facility] [address] [address] [address] Jessie Cheney XR CHEST 1 Von [...] by: SENDY MEI Date: 2021-08-16 23:27 Normal [facility] GLYCOHEMOGLOBIN A1Con 2021 ADA RECOMMENDATION ADA THERAPEUTIC TARG ET 6.0 - 7.0 ACTION SUGGESTED > 7.0 Normal [facility] Comment on above: Performed By: #### B MP #### [facility] [address] [address] [address] Jessie Cheney Glucose [Mass/Vol] 163 mg/dL Normal [facility] Comment on above: Performed By: #### B MP #### [facility] [address] [address] [address] Jessie Cheney HbA1c (Bld) [Mass fraction] 7.3 % Critically high <=6.0 [facility] Comment on above: Performed By: #### B MP #### [facility] [address] [address] [address] Jessie Cheney Blood anisocytosis detection Ordered By: Jarrett Loyola on 07-09-2021 Anisocytosis Ql (Bld) Moderate [facility] Hypochromia detectionOrdered By: Jarrett Loyola on 07-09-2021 Hypochromia Ql (Bld) Slight [facility] No Panel InformationOrdered By: Jarrett Loyola on 07-09-2021 Poikilocytosis [facility] Ovalocyte detectionOrdered B y: Jarrett Nir on 07-09-2021 Ovalocytes LM Ql (Bld) [facility] Blood polychromasia detectio n by light microscopyOrdered By: Jarrett Nir on 06-28-2021 Polychromasia LM Ql (Bld) [facility] No Panel InformationOrdered By: Jarrett Loyola on 06-28-2021 Rouleau [facility] Schistocytes [facility] PRBC LEUKOREDUCEDon 06-23-19 ABO and Rh group Nom (Bld) Cross Match Result Compatible Unit Blood Type O Pos Unit Number [id number] Status Information Transfused Product ID Red Blood Cells Product Code [id number] Cross Match Result Compatible Unit Blood Type O Pos Unit Number [id number] Status Information Transfused Product ID Red Blood Cells Product Code [id number] Normal [facility] Comment on above: Performed By: #### P RBC #### [facility] [address] [place] [address] Dr. Jessie Cheney PRBC LEUKOREDUCED Cross Match Result Compatible Unit Blood Type O Pos Unit Number [id number] Status Information Transfused Product ID Red Blood Cells Product Code [id number] Normal [facility] Comment on above: Performed By: #### C BC #### [facility] [address] [place] [address] Dr. Jessie Cheney CBC AUTO DIFFon 06-21-2021 BASO # 0.0 103/ul Normal 0.0-0.1 [facility] Comment on above: Performed By: #### C BC #### [facility] [address] [place] [address] Dr. Jessie Cheney Basophils/100 WBC (Bld) 0.3 % Normal 0.2-2.0 [facility] Comment on above: Performed By: #### C BC #### [facility] [address] [place] [address] Dr. Jessie Cheney EO # 0.2 103/ul Normal 0.0-0.7 [facility] Comment on above: Performed By: #### C BC #### [facility] [address] [address] [address] Jessie Cheney Eosinophils/100 WBC (Bld) 1.3 % Normal 0.9-7.0 [facility] Comment on above: Performed By: #### C BC #### [facility] [address] [place] [address] Dr. Jessie Cheney Erythrocyte distribution width (RBC) [Ratio] 25.4 % Critically high 11.0-15.0 [facility] Comment on above: Result Comment: 4+ A NISOCYTOSIS Performed By: #### C BC #### [facility] [address] [place] [address] Dr. Jessie Cheney Hematocrit (Bld) [Volume fraction] 33.4 % Critically low 36.0-48.0 [facility] Comment on above: Performed By: #### C BC #### [facility] [address] [place] [address] Dr. Jessie Cheney Hemoglobin (Bld) [Mass/Vol] 10.2 g/dL Critically low 12.0-16.0 [facility] Comment on above: Performed By: #### C BC #### [facility] [address] [place] [address] Dr. Jessie Cheney IG # 0.14 10e3/ul Critically high 0.00-0.03 [facility] Comment on above: Performed By: #### C BC #### [facility] [address] [place] [address] Dr. Jessie Cheney IG % 1.1 % Critically high 0.0-0.5 [facility] Comment on above: Performed By: #### C BC #### [facility] [address] [place] [address] Dr. Jessie Cheney LYMPH # 2.0 103/ul Normal 1.2-3.8 [facility] Comment on above: Performed By: #### C BC #### [facility] [address] [place] [address] Dr. Jessie Cheney Lymphocytes/100 WBC (Bld) 15.2 % Critically low 20.5-60.0 [facility] Comment on above: Performed By: #### C BC #### [facility] [address] [place] [address] Dr. Jessie Cheney MANUAL DIFF REQ NO Normal [facility] Comment on above: Performed By: #### C BC #### [facility] [address] [place] [address] Dr. Jessie Cheney MCH (RBC) [Entitic mass] 26.4 pg Critically low 26.7-34.0 [facility] Comment on above: Performed By: #### C BC #### [facility] [address] [place] [address] Dr. Jessie Cheney MCHC (RBC) [Mass/Vol] 30.5 g/dL Normal 29.9-35.2 [facility] Comment on above: Performed By: #### C BC #### [facility] [address] [place] [address] Dr. Jessie Cheney MCV (RBC) [Entitic vol] 86.5 fL Normal 81.0-99.0 [facility] Comment on above: Performed By: #### C BC #### [facility] [address] [place] [address] Dr. Jessie Cheney MONO # 0.9 103/ul Critically high 0.3-0.8 [facility] Comment on above: Performed By: #### C BC #### [facility] [address] [place] [address] Dr. Jessie Cheney Monocytes/100 WBC (Bld) 6.9 % Normal 1.7-12.0 [facility] Comment on above: Performed By: #### C BC #### [facility] [address] [place] [address] Dr. Jessie Cheney NEUT # 9.8 103/ul Critically high 1.4-6.5 [facility] Comment on above: Performed By: #### C BC #### [facility] [address] [place] [address] Dr. Jessie Cheney Neutrophils/100 WBC (Bld) 75.2 % Critically high 43.0-75.0 [facility] Comment on above: Performed By: #### C BC #### [facility] [address] [place] [address] Dr. Jessie Cheney Platelet mean volume (Bld) [Entitic vol] 10.2 fL Normal 9.5-13.5 [facility] Comment on above: Performed By: #### C BC #### [facility] [address] [place] [address] Dr. Jessie Cheney PLT 342 103/ul Normal 150-450 [facility] Comment on above: Performed By: #### C BC #### [facility] [address] [place] [address] Dr. Jessie Cheney RBC 3.86 106/ul Critically low 4.20-5.40 [facility] Comment on above: Result Comment: JAN CELLS 2+; OVALOCYTES 1+; TEAR DROP 1+ Performed By: #### C BC #### [facility] [address] [place] [address] Dr. Jessie Cheney WBC 13.0 103/ul Critically high 4.0-11.0 [facility] Comment on above: Performed By: #### C BC #### [facility] [address] [place] [address] Dr. Jessie Cheney CBC AUTO DIFFon 06-16-2021 BASO # 0.0 103/ul Normal 0.0-0.1 [facility] Comment on above: Performed By: #### T SH, FT3 #### [facility] [address] [place] [address] Dr. Jessie Cheney Basophils/100 WBC (Bld) 0.2 % Normal 0.2-2.0 [facility] Comment on above: Performed By: #### T SH, FT3 #### [facility] [address] [place] [address] Dr. Jessie Cheney EO # 0.0 103/ul Normal 0.0-0.7 [facility] Comment on above: Performed By: #### T SH, FT3 #### [facility] [address] [place] [address] Dr. Jessie Cheney Eosinophils/100 WBC (Bld) 0.0 % Critically low 0.9-7.0 [facility] Comment on above: Performed By: #### T SH, FT3 #### [facility] [address] [place] [address] Dr. Jessie Cheney Erythrocyte distribution width (RBC) [Ratio] 22.0 % Critically high 11.0-15.0 [facility] Comment on above: Performed By: #### T SH, FT3 #### [facility] [address] [place] [address] Dr. Jessie Cheney Hematocrit (Bld) [Volume fraction] 25.1 % Critically low 36.0-48.0 [facility] Comment on above: Performed By: #### T KIRA, FT3 #### [facility] [address] [place] [address] Dr. Jessie Cheney Hemoglobin (Bld) [Mass/Vol] 7.7 g/dL Critically low 12.0-16.0 [facility] Comment on above: Performed By: #### T KIRA, FT3 #### [facility] [address] [place] [address] Dr. Jessie Cheney IG # 0.28 10e3/ul Critically high 0.00-0.03 [facility] Comment on above: Performed By: #### T KIRA, FT3 #### [facility] [address] [place] [address] Dr. Jessie Cheney IG % 1.9 % Critically high 0.0-0.5 [facility] Comment on above: Performed By: #### T KIRA, FT3 #### [facility] [address] [place] [address] Dr. Jessie Cheney LYMPH # 1.7 103/ul Normal 1.2-3.8 [facility] Comment on above: Performed By: #### T KIRA, FT3 #### [facility] [address] [place] [address] Dr. Jessie Cheney Lymphocytes/100 WBC (Bld) 11.2 % Critically low 20.5-60.0 [facility] Comment on above: Performed By: #### T KIRA, FT3 #### [facility] [address] [place] [address] Dr. Jessie Cheney MANUAL DIFF REQ NO Normal [facility] Comment on above: Performed By: #### T KIRA, FT3 #### [facility] [address] [place] [address] Dr. Jessie Cheney MCH (RBC) [Entitic mass] 24.9 pg Critically low 26.7-34.0 [facility] Comment on above: Performed By: #### T KIRA, FT3 #### [facility] [address] [place] [address] Dr. Jessie Cheney MCHC (RBC) [Mass/Vol] 30.7 g/dL Normal 29.9-35.2 [facility] Comment on above: Performed By: #### T KIRA, FT3 #### [facility] [address] [place] [address] Dr. Jessie Cheney MCV (RBC) [Entitic vol] 81.2 fL Normal 81.0-99.0 [facility] Comment on above: Performed By: #### T KIRA, FT3 #### [facility] [address] [place] [address] Dr. Jessie Cheney MONO # 0.8 103/ul Normal 0.3-0.8 [facility] Comment on above: Performed By: #### T KIRA, FT3 #### [facility] [address] [place] [address] Dr. Jessie Cheney Monocytes/100 WBC (Bld) 5.4 % Normal 1.7-12.0 [facility] Comment on above: Performed By: #### T KIRA, FT3 #### [facility] [address] [place] [address] Dr. Jessie Cheney NEUT # 12.0 103/ul Critically high 1.4-6.5 [facility] Comment on above: Performed By: #### T KIRA, FT3 #### [facility] [address] [place] [address] Dr. Jessie Cheney Neutrophils/100 WBC (Bld) 81.3 % Critically high 43.0-75.0 [facility] Comment on above: Performed By: #### T KIRA, FT3 #### [facility] [address] [place] [address] Dr. Jessie Cheney Platelet mean volume (Bld) [Entitic vol] 11.0 fL Normal 9.5-13.5 [facility] Comment on above: Performed By: #### T KIRA, FT3 #### [facility] [address] [place] [address] Dr. Jessie Cheney PLT 307 103/ul Normal 150-450 [facility] Comment on above: Performed By: #### T , FT3 #### [facility] [address] [place] [address] Dr. Jessie Cheeny RBC 3.09 106/ul Critically low 4.20-5.40 [facility] Comment on above: Performed By: #### T KIRA, FT3 #### [facility] [address] [place] [address] Dr. Jessie Cheney WBC 14.8 103/ul Critically high 4.0-11.0 [facility] Comment on above: Performed By: #### T , FT3 #### [facility] [address] [place] [address] Dr. Jessie Cheney PROF CHEM 8 (BAS METB)on Anion gap [Moles/Vol] 14.2 mmol/L Normal Th [facility] Comment on above: Performed By: #### B MP #### [facility] [address] [place] [address] Dr. Jessie Cheney Calcium [Mass/Vol] 9.6 mg/dL Normal 8.4-10.2 [facility] Comment on above: Performed By: #### B MP #### [facility] [address] [place] [address] Dr. Jessie Cheney Chloride [Moles/Vol] 103 mmol/L Normal 98-107 [facility] Comment on above: Performed By: #### B MP #### [facility] [address] [place] [address] Dr. Jessie Cheney CO2 [Moles/Vol] 23.0 mmol/L Normal 22.0-30.0 [facility] Comment on above: Performed By: #### B MP #### [facility] [address] [address] [address] Jessie Cheney Creatinine [Mass/Vol] 0.81 mg/dL Normal 0.52-1.04 [facility] Comment on above: Performed By: #### B MP #### [facility] [address] [address] [address] Jessie Cheney EGFR-AF IRISH >60 Normal >=60 [facility] Comment on above: Performed By: #### B MP #### [facility] [address] [address] [address] Jessie Cheney EGFR-NON AF IRISH >60 Normal >=60 [facility] Comment on above: Performed By: #### B MP #### [facility] [address] [place] [address] Dr. Jessie Cheney Glucose [Mass/Vol] 230 mg/dL Critically high 74-106 [facility] Comment on above: Performed By: #### B MP #### [facility] [address] [place] [address] Dr. Jessie Cheney Potassium [Moles/Vol] 4.2 mmol/L Normal 3.4-5.0 [facility] Comment on above: Performed By: #### B MP #### [facility] [address] [place] [address] Dr. Jessie Cheney Sodium [Moles/Vol] 136 mmol/L Critically low 137-145 Th [facility] Comment on above: Performed By: #### B MP #### [facility] [address] [place] [address] Dr. Jessie Cheney Urea nitrogen [Mass/Vol] 16.0 mg/dL Normal 7.0-17.0 [facility] Comment on above: Performed By: #### B MP #### [facility] [address] [place] [address] Dr. Jessie Cheney Urea nitrogen/Creatinine [Mass ratio] 19.8 mg/mg Normal [facility] Comment on above: Performed By: #### B MP #### [facility] [address] [address] [address] Jessie Cheney CBC AUTO DIFFon 06-15-2021 BASO # 0.1 103/ul Normal 0.0-0.1 [facility] Comment on above: Performed By: #### C BC #### [facility] [address] [address] [address] Jessie Cheney Basophils/100 WBC (Bld) 0.6 % Normal 0.2-2.0 [facility] Comment on above: Performed By: #### C BC #### [facility] [address] [address] [address] Jessie Cheney EO # 0.2 103/ul Normal 0.0-0.7 [facility] Comment on above: Performed By: #### C BC #### [facility] [address] [place] [address] Dr. Jessie Cheney Eosinophils/100 WBC (Bld) 2.1 % Normal 0.9-7.0 [facility] Comment on above: Performed By: #### C BC #### [facility] [address] [place] [address] Dr. Jessie Cheney Erythrocyte distribution width (RBC) [Ratio] 21.4 % Critically high 11.0-15.0 [facility] Comment on above: Performed By: #### C BC #### [facility] [address] [place] [address] Dr. Jessie Cheney Hematocrit (Bld) [Volume fraction] 25.4 % Critically low 36.0-48.0 [facility] Comment on above: Performed By: #### C BC #### [facility] [address] [place] [address] Dr. Jessie Cheney Hemoglobin (Bld) [Mass/Vol] 7.7 g/dL Critically low 12.0-16.0 [facility] Comment on above: Performed By: #### C BC #### [facility] [address] [place] [address] Dr. Jessie Cheney IG # 0.10 10e3/ul Critically high 0.00-0.03 [facility] Comment on above: Performed By: #### C BC #### [facility] [address] [place] [address] Dr. Jessie Cheney IG % 0.9 % Critically high 0.0-0.5 [facility] Comment on above: Performed By: #### C BC #### [facility] [address] [place] [address] Dr. Jessie Cheney LYMPH # 3.0 103/ul Normal 1.2-3.8 [facility] Comment on above: Performed By: #### C BC #### [facility] [address] [place] [address] Dr. Jessie Cheney Lymphocytes/100 WBC (Bld) 28.1 % Normal 20.5-60.0 [facility] Comment on above: Performed By: #### C BC #### [facility] [address] [place] [address] Dr. Jessie Cheney MANUAL DIFF REQ NO Normal [facility] Comment on above: Performed By: #### C BC #### [facility] [address] [place] [address] Dr. Jessie Cheney MCH (RBC) [Entitic mass] 24.8 pg Critically low 26.7-34.0 [facility] Comment on above: Performed By: #### C BC #### [facility] [address] [place] [address] Dr. Jessie Cheney MCHC (RBC) [Mass/Vol] 30.3 g/dL Normal 29.9-35.2 [facility] Comment on above: Performed By: #### C BC #### [facility] [address] [place] [address] Dr. Jessie Cheney MCV (RBC) [Entitic vol] 81.9 fL Normal 81.0-99.0 [facility] Comment on above: Performed By: #### C BC #### [facility] [address] [place] [address] Dr. Jessie Cheney MONO # 1.0 103/ul Critically high 0.3-0.8 [facility] Comment on above: Performed By: #### C BC #### [facility] [address] [place] [address] Dr. Jessie Cheney Monocytes/100 WBC (Bld) 9.2 % Normal 1.7-12.0 [facility] Comment on above: Performed By: #### C BC #### [facility] [address] [place] [address] Dr. Jessie Cheney NEUT # 6.3 103/ul Normal 1.4-6.5 [facility] Comment on above: Performed By: #### C BC #### [facility] [address] [place] [address] Dr. Jessie Cheney Neutrophils/100 WBC (Bld) 59.1 % Normal 43.0-75.0 [facility] Comment on above: Performed By: #### C BC #### [facility] [address] [place] [address] Dr. Jessie Cheney Platelet mean volume (Bld) [Entitic vol] 10.7 fL Normal 9.5-13.5 [facility] Comment on above: Performed By: #### C BC #### [facility] [address] [place] [address] Dr. Jessie Cheney PLT 261 103/ul Normal 150-450 [facility] Comment on above: Performed By: #### C BC #### [facility] [address] [place] [address] Dr. Jessie Cheney RBC 3.10 106/ul Critically low 4.20-5.40 [facility] Comment on above: Performed By: #### C BC #### [facility] [address] [place] [address] Dr. Jessie Cheney WBC 10.7 103/ul Normal 4.0-11.0 [facility] Comment on above: Performed By: #### C BC #### [facility] [address] [place] [address] Dr. Jessie Cheney DIRECT COOMBSon 06-15-2021 DIRECT DARINEL Negative Normal [facility] Comment on above: Performed By: #### C BC #### [facility] [address] [place] [address] Dr. Jessie Cheney HAPTOGLOBINon 12-28-2021 Haptoglobin 199 mg/dL Normal 42-346 [facility] Comment on above: Performed By: #### B MP #### [facility] [address] [address] [address] Jessie Cheney POINT OF CARE GLUCOSEon 12-2 Glucose [Mass/Vol] 117 mg/dL Critically high 74-106 T [facility] Comment on above: Performed By: #### B MP #### [facility] [address] [place] [address] Dr. Jessie Cheney PROF CHEM 8 (BAS METB)on Anion gap [Moles/Vol] 10.4 mmol/L Normal [facility] Comment on above: Performed By: #### B MP #### [facility] [address] [place] [address] Dr. Jessie Cheney Calcium [Mass/Vol] 9.7 mg/dL Normal 8.4-10.2 [facility] Comment on above: Performed By: #### B MP #### [facility] [address] [place] [address] Dr. Jessie Cheney Chloride [Moles/Vol] 106 mmol/L Normal 98-107 [facility] Comment on above: Performed By: #### B MP #### [facility] [address] [place] [address] Dr. Jessie Cheney CO2 [Moles/Vol] 26.1 mmol/L Normal 22.0-30.0 [facility] Comment on above: Performed By: #### B MP #### [facility] [address] [place] [address] Dr. Jessie Cheney Creatinine [Mass/Vol] 0.75 mg/dL Normal 0.52-1.04 [facility] Comment on above: Performed By: #### B MP #### [facility] [address] [place] [address] Dr. Jessie Cheney EGFR-AF IRISH >60 Normal >=60 [facility] Comment on above: Performed By: #### B MP #### [facility] [address] [place] [address] Dr. Jessie Cheney EGFR-NON AF IRISH >60 Normal >=60 [facility] Comment on above: Performed By: #### B MP #### [facility] [address] [address] [address] Jessie Cheney Glucose [Mass/Vol] 108 mg/dL Critically high 74-106 T [facility] Comment on above: Performed By: #### B MP #### [facility] [address] [address] [address] Jessie Cheney Potassium [Moles/Vol] 3.5 mmol/L Normal 3.4-5.0 [facility] Comment on above: Performed By: #### B MP #### [facility] [address] [address] [address] Jessie Cheney Sodium [Moles/Vol] 139 mmol/L Normal 137-145 [facility] Comment on above: Performed By: #### B MP #### [facility] [address] [place] [address] Dr. Jessie Cheney Urea nitrogen [Mass/Vol] 14.0 mg/dL Normal 7.0-17.0 [facility] Comment on above: Performed By: #### B MP #### [facility] [address] [address] [address] Jessie Cheney Urea nitrogen/Creatinine [Mass ratio] 18.7 mg/mg Normal [facility] Comment on above: Performed By: #### B MP #### [facility] [address] [address] [address] Jessie Cheney CBC AUTO DIFFon 06-14-2021 BASO # 0.1 103/ul Normal 0.0-0.1 [facility] Comment on above: Performed By: #### B MP #### [facility] [address] [address] [address] Jessie Cheney Basophils/100 WBC (Bld) 0.5 % Normal 0.2-2.0 [facility] Comment on above: Performed By: #### B MP #### [facility] [address] [address] [address] Jessie Cheney EO # 0.1 103/ul Normal 0.0-0.7 [facility] Comment on above: Performed By: #### B MP #### [facility] [address] [place] [address] Dr. Jessie Cheney Eosinophils/100 WBC (Bld) 1.1 % Normal 0.9-7.0 [facility] Comment on above: Performed By: #### B MP #### [facility] [address] [place] [address] Dr. Jessie Cheney Erythrocyte distribution width (RBC) [Ratio] 20.6 % Critically high 11.0-15.0 [facility] Comment on above: Performed By: #### B MP #### [facility] [address] [place] [address] Dr. Jessie Cheney Hematocrit (Bld) [Volume fraction] 25.2 % Critically low 36.0-48.0 [facility] Comment on above: Performed By: #### B MP #### [facility] [address] [place] [address] Dr. Jessie Cheney Hemoglobin (Bld) [Mass/Vol] 7.8 g/dL Critically low 12.0-16.0 [facility] Comment on above: Performed By: #### B MP #### [facility] [address] [place] [address] Dr. Jessie Cheney IG # 0.10 10e3/ul Critically high 0.00-0.03 [facility] Comment on above: Performed By: #### B MP #### [facility] [address] [place] [address] Dr. Jessie Cheney IG % 0.8 % Critically high 0.0-0.5 [facility] Comment on above: Performed By: #### B MP #### [facility] [address] [place] [address] Dr. Jessie Cheney LYMPH # 2.9 103/ul Normal 1.2-3.8 [facility] Comment on above: Performed By: #### B MP #### [facility] [address] [place] [address] Dr. Jessie Cheney Lymphocytes/100 WBC (Bld) 24.0 % Normal 20.5-60.0 [facility] Comment on above: Performed By: #### B MP #### [facility] [address] [place] [address] Dr. Jessie Cheney MANUAL DIFF REQ NO Normal [facility] Comment on above: Performed By: #### B MP #### [facility] [address] [place] [address] Dr. Jessie Cheney MCH (RBC) [Entitic mass] 24.9 pg Critically low 26.7-34.0 [facility] Comment on above: Performed By: #### B MP #### [facility] [address] [place] [address] Dr. Jessie Cheney MCHC (RBC) [Mass/Vol] 31.0 g/dL Normal 29.9-35.2 [facility] Comment on above: Performed By: #### B MP #### [facility] [address] [place] [address] Dr. Jessie Cheney MCV (RBC) [Entitic vol] 80.5 fL Critically low 81.0-99.0 [facility] Comment on above: Performed By: #### B MP #### [facility] [address] [place] [address] Dr. Jessie Cheney MONO # 1.1 103/ul Critically high 0.3-0.8 [facility] Comment on above: Performed By: #### B MP #### [facility] [address] [place] [address] Dr. Jessie Chneey Monocytes/100 WBC (Bld) 8.9 % Normal 1.7-12.0 [facility] Comment on above: Performed By: #### B MP #### [facility] [address] [place] [address] Dr. Jessie Cheney NEUT # 7.8 103/ul Critically high 1.4-6.5 [facility] Comment on above: Performed By: #### B MP #### [facility] [address] [place] [address] Dr. Jessie Cheney Neutrophils/100 WBC (Bld) 64.7 % Normal 43.0-75.0 [facility] Comment on above: Performed By: #### B MP #### [facility] [address] [address] [address] Jessie Cheney Platelet mean volume (Bld) [Entitic vol] 10.7 fL Normal 9.5-13.5 [facility] Comment on above: Performed By: #### B MP #### [facility] [address] [address] [address] Jessie Cheney PLT 248 103/ul Normal 150-450 [facility] Comment on above: Performed By: #### B MP #### [facility] [address] [address] [address] Jessie Cheney RBC 3.13 106/ul Critically low 4.20-5.40 [facility] Comment on above: Performed By: #### B MP #### [facility] [address] [place] [address] Dr. Jessie Cheney WBC 12.1 103/ul Critically high 4.0-11.0 [facility] Comment on above: Performed By: #### B MP #### [facility] [address] [place] [address] Dr. Jessie Cheney DIRECT COOMBSon 06-14-2021 DIRECT DARINEL Negative Normal [facility] Comment on above: Performed By: #### C BC #### [facility] [address] [place] [address] Dr. Jessie Cheney FERRITINon 06-14-2021 Ferritin [Mass/Vol] 117.0 ng/mL Normal 11.1-264.0 [facility] Comment on above: Performed By: #### T SH, FT3 #### [facility] [address] [place] [address] Dr. Jessie Cheney H PYLORI ANTIBODYon 06-14-20 21 H PYLORI Negative Normal NEGATIVE [facility] Comment on above: Performed By: #### H PYL #### [facility] [address] [place] [address] Dr. Jessie Cheney NM GI BLEEDon 06-14-2021 [...] #### B MP #### [facility] [address] [place] [address] Dr. Jessie Cheney RETICULOCYTEon 06-14-2021 RETIC 2.96 % Normal 0.60-3.10 [facility] Comment on above: Performed By: #### B MP #### [facility] [address] [place] [address] Dr. Jessie Cheney VIT B12 AND FOLATEon 021 Cobalamin (Vitamin B12) [Mass/Vol] 364.0 pg/mL Normal 239.0-931. 0 [facility] Comment on above: Performed By: #### B MP #### [facility] [address] [place] [address] Dr. Jessie Cheney FOLATE 15.10 ng/mL Normal >=2.76 [facility] Comment on above: Performed By: #### B MP #### [facility] [address] [place] [address] Dr. Jessie Cheney CBC AUTO DIFFon 06-13-2021 BASO # 0.0 103/ul Normal 0.0-0.1 [facility] Comment on above: Performed By: #### C BC #### [facility] [address] [place] [address] Dr. Jessie Cheney Basophils/100 WBC (Bld) 0.2 % Normal 0.2-2.0 [facility] Comment on above: Performed By: #### C BC #### [facility] [address] [place] [address] Dr. Jessie Cheney EO # 0.0 103/ul Normal 0.0-0.7 [facility] Comment on above: Performed By: #### C BC #### [facility] [address] [place] [address] Dr. Jessie Chneey Eosinophils/100 WBC (Bld) 0.2 % Critically low 0.9-7.0 [facility] Comment on above: Performed By: #### C BC #### [facility] [address] [place] [address] Dr. Jessie Cheney Erythrocyte distribution width (RBC) [Ratio] 21.6 % Critically high 11.0-15.0 [facility] Comment on above: Performed By: #### C BC #### [facility] [address] [place] [address] Dr. Jessie Cheney Hematocrit (Bld) [Volume fraction] 19.4 % Critically low 36.0-48.0 [facility] Comment on above: Result Comment: test repeated critical value verified Performed By: #### C BC #### [facility] [address] [place] [address] Dr. Jessie Cheney Hemoglobin (Bld) [Mass/Vol] 6.1 g/dL Critically low 12.0-16.0 [facility] Comment on above: Result Comment: test repeated critical value verified Performed By: #### C BC #### [facility] [address] [place] [address] Dr. Jessie Cheney IG # 0.12 10e3/ul Critically high 0.00-0.03 [facility] Comment on above: Performed By: #### C BC #### [facility] [address] [place] [address] Dr. Jessie Cheney IG % 0.9 % Critically high 0.0-0.5 [facility] Comment on above: Performed By: #### C BC #### [facility] [address] [place] [address] Dr. Jessie Cheney LYMPH # 3.4 103/ul Normal 1.2-3.8 [facility] Comment on above: Performed By: #### C BC #### [facility] [address] [place] [address] Dr. Jessie Cheney Lymphocytes/100 WBC (Bld) 24.5 % Normal 20.5-60.0 [facility] Comment on above: Performed By: #### C BC #### [facility] [address] [place] [address] Dr. Jessie Cheney MANUAL DIFF REQ NO Normal [facility] Comment on above: Performed By: #### C BC #### [facility] [address] [place] [address] Dr. Jessie Cheney MCH (RBC) [Entitic mass] 24.0 pg Critically low 26.7-34.0 [facility] Comment on above: Performed By: #### C BC #### [facility] [address] [place] [address] Dr. Jessie Cheney MCHC (RBC) [Mass/Vol] 31.4 g/dL Normal 29.9-35.2 [facility] Comment on above: Performed By: #### C BC #### [facility] [address] [place] [address] Dr. Jessie Cheney MCV (RBC) [Entitic vol] 76.4 fL Critically low 81.0-99.0 [facility] Comment on above: Performed By: #### C BC #### [facility] [address] [place] [address] Dr. Jessie Cheney MONO # 1.3 103/ul Critically high 0.3-0.8 [facility] Comment on above: Performed By: #### C BC #### [facility] [address] [place] [address] Dr. Jessie Cheney Monocytes/100 WBC (Bld) 9.6 % Normal 1.7-12.0 [facility] Comment on above: Performed By: #### C BC #### [facility] [address] [place] [address] Dr. Jessie Cheney NEUT # 8.9 103/ul Critically high 1.4-6.5 [facility] Comment on above: Performed By: #### C BC #### [facility] [address] [place] [address] Dr. Jessie Cheney Neutrophils/100 WBC (Bld) 64.6 % Normal 43.0-75.0 [facility] Comment on above: Performed By: #### C BC #### [facility] [address] [place] [address] Dr. Jessie Cheney Platelet mean volume (Bld) [Entitic vol] 10.3 fL Normal 9.5-13.5 [facility] Comment on above: Performed By: #### C BC #### [facility] [address] [place] [address] Dr. Jessie Cheney PLT 246 103/ul Normal 150-450 [facility] Comment on above: Performed By: #### C BC #### [facility] [address] [place] [address] Dr. Jessie Cheney RBC 2.54 106/ul Critically low 4.20-5.40 [facility] Comment on above: Performed By: #### C BC #### [facility] [address] [place] [address] Dr. Jessie Cheney WBC 13.8 103/ul Critically high 4.0-11.0 [facility] Comment on above: Performed By: #### C BC #### [facility] [address] [place] [address] Dr. Jessie Cheney HEMOGLOBIN AND HEMATOCRITon 06-13-2021 Hematocrit (Bld) [Volume fraction] 26.5 % Critically low 36.0-48.0 [facility] Comment on above: Performed By: #### T KIRA, FT3 #### [facility] [address] [place] [address] Dr. Jessie Cheney Hemoglobin (Bld) [Mass/Vol] 8.4 g/dL Critically low 12.0-16.0 [facility] Comment on above: Performed By: #### T KIRA, FT3 #### [facility] [address] [place] [address] Dr. Jessie Cheney Hematocrit (Bld) [Volume fraction] 25.9 % Critically low 36.0-48.0 [facility] Comment on above: Performed By: #### B MP #### [facility] [address] [address] [address] Jessie Cheney Hemoglobin (Bld) [Mass/Vol] 8.0 g/dL Critically low 12.0-16.0 [facility] Comment on above: Performed By: #### B MP #### [facility] [address] [place] [address] Dr. Jessie Cheney CBC AUTO DIFFon 06-12-2021 BASO # 0.0 103/ul Normal 0.0-0.1 [facility] Comment on above: Performed By: #### B MP #### [facility] [address] [place] [address] Dr. Jessie Cheney Basophils/100 WBC (Bld) 0.2 % Normal 0.2-2.0 [facility] Comment on above: Performed By: #### B MP #### [facility] [address] [place] [address] Dr. Jessie Cheney EO # 0.0 103/ul Normal 0.0-0.7 [facility] Comment on above: Performed By: #### B MP #### [facility] [address] [place] [address] Dr. Jessie Cheney Eosinophils/100 WBC (Bld) 0.0 % Critically low 0.9-7.0 [facility] Comment on above: Performed By: #### B MP #### [facility] [address] [place] [address] Dr. Jessie Cheney Erythrocyte distribution width (RBC) [Ratio] 21.2 % Critically high 11.0-15.0 [facility] Comment on above: Performed By: #### B MP #### [facility] [address] [place] [address] Dr. Jessie Cheney Hematocrit (Bld) [Volume fraction] 25.7 % Critically low 36.0-48.0 [facility] Comment on above: Performed By: #### B MP #### [facility] [address] [place] [address] Dr. Jessie Cheney Hemoglobin (Bld) [Mass/Vol] 7.9 g/dL Critically low 12.0-16.0 [facility] Comment on above: Performed By: #### B MP #### [facility] [address] [place] [address] Dr. Jessie Cheney IG # 0.26 10e3/ul Critically high 0.00-0.03 [facility] Comment on above: Performed By: #### B MP #### [facility] [address] [place] [address] Dr. Jessie Cheney IG % 1.5 % Critically high 0.0-0.5 [facility] Comment on above: Performed By: #### B MP #### [facility] [address] [place] [address] Dr. Jessie Cheney LYMPH # 1.6 103/ul Normal 1.2-3.8 [facility] Comment on above: Performed By: #### B MP #### [facility] [address] [place] [address] Dr. Jessie Cheney Lymphocytes/100 WBC (Bld) 9.6 % Critically low 20.5-60.0 [facility] Comment on above: Performed By: #### B MP #### [facility] [address] [place] [address] Dr. Jessie Cheney MANUAL DIFF REQ NO Normal [facility] Comment on above: Performed By: #### B MP #### [facility] [address] [place] [address] Dr. Jessie Cheney MCH (RBC) [Entitic mass] 23.7 pg Critically low 26.7-34.0 [facility] Comment on above: Performed By: #### B MP #### [facility] [address] [place] [address] Dr. Jessie Cheney MCHC (RBC) [Mass/Vol] 30.7 g/dL Normal 29.9-35.2 [facility] Comment on above: Performed By: #### B MP #### [facility] [address] [place] [address] Dr. Jessie Cheney MCV (RBC) [Entitic vol] 76.9 fL Critically low 81.0-99.0 [facility] Comment on above: Performed By: #### B MP #### [facility] [address] [address] [address] Jessie Cheney MONO # 0.2 103/ul Critically low 0.3-0.8 [facility] Comment on above: Performed By: #### B MP #### [facility] [address] [address] [address] Jessie Cheney Monocytes/100 WBC (Bld) 1.0 % Critically low 1.7-12.0 [facility] Comment on above: Performed By: #### B MP #### [facility] [address] [place] [address] Dr. Jessie Cheney NEUT # 14.8 103/ul Critically high 1.4-6.5 [facility] Comment on above: Performed By: #### B MP #### [facility] [address] [place] [address] Dr. Jessie Cheney Neutrophils/100 WBC (Bld) 87.7 % Critically high 43.0-75.0 [facility] Comment on above: Performed By: #### B MP #### [facility] [address] [place] [address] Dr. Jessie Cheney Platelet mean volume (Bld) [Entitic vol] 10.5 fL Normal 9.5-13.5 [facility] Comment on above: Performed By: #### B MP #### [facility] [address] [place] [address] Dr. Jessie Cheney PLT 275 103/ul Normal 150-450 [facility] Comment on above: Performed By: #### B MP #### [facility] [address] [place] [address] Dr. Jessie Cheney RBC 3.34 106/ul Critically low 4.20-5.40 [facility] Comment on above: Performed By: #### B MP #### [facility] [address] [place] [address] Dr. Jessie Cheney WBC 16.9 103/ul Critically high 4.0-11.0 [facility] Comment on above: Performed By: #### B MP #### [facility] [address] [place] [address] Dr. Jessie Cheney BASO # 0.0 103/ul Normal 0.0-0.1 [facility] Comment on above: Performed By: #### B MP #### [facility] [address] [place] [address] Dr. Jessie Cheney Basophils/100 WBC (Bld) 0.3 % Normal 0.2-2.0 [facility] Comment on above: Performed By: #### B MP #### [facility] [address] [place] [address] Dr. Jessie Cheney EO # 0.1 103/ul Normal 0.0-0.7 [facility] Comment on above: Performed By: #### B MP #### [facility] [address] [place] [address] Dr. Jessie Cheney Eosinophils/100 WBC (Bld) 0.8 % Critically low 0.9-7.0 [facility] Comment on above: Performed By: #### B MP #### [facility] [address] [place] [address] Dr. Jessie Cheney Erythrocyte distribution width (RBC) [Ratio] 23.4 % Critically high 11.0-15.0 [facility] Comment on above: Performed By: #### B MP #### [facility] [address] [place] [address] Dr. Jessie Cheney Hematocrit (Bld) [Volume fraction] 20.2 % Critically low 36.0-48.0 [facility] Comment on above: Result Comment: Test Repeated. Critical Value Verified. Performed By: #### B MP #### [facility] [address] [place] [address] Dr. Jessie Cheney Hemoglobin (Bld) [Mass/Vol] 5.7 g/dL Critically low 12.0-16.0 [facility] Comment on above: Result Comment: Test Repeated. Critical Value Verified. Performed By: #### B MP #### [facility] [address] [place] [address] Dr. Jessie Cheney IG # 0.10 10e3/ul Critically high 0.00-0.03 [facility] Comment on above: Performed By: #### B MP #### [facility] [address] [place] [address] Dr. Jessie Cheney IG % 0.7 % Critically high 0.0-0.5 [facility] Comment on above: Performed By: #### B MP #### [facility] [address] [place] [address] Dr. Jessie Cheney LYMPH # 3.7 103/ul Normal 1.2-3.8 [facility] Comment on above: Performed By: #### B MP #### [facility] [address] [place] [address] Dr. Jessie Cheney Lymphocytes/100 WBC (Bld) 25.4 % Normal 20.5-60.0 [facility] Comment on above: Performed By: #### B MP #### [facility] [address] [place] [address] Dr. Jessie Cheney MANUAL DIFF REQ NO Normal [facility] Comment on above: Performed By: #### B MP #### [facility] [address] [place] [address] Dr. Jessie Cheney MCH (RBC) [Entitic mass] 20.3 pg Critically low 26.7-34.0 [facility] Comment on above: Performed By: #### B MP #### [facility] [address] [place] [address] Dr. Jessie Cheney MCHC (RBC) [Mass/Vol] 28.2 g/dL Critically low 29.9-35.2 [facility] Comment on above: Performed By: #### B MP #### [facility] [address] [place] [address] Dr. Jessie Cheney MCV (RBC) [Entitic vol] 71.9 fL Critically low 81.0-99.0 [facility] Comment on above: Performed By: #### B MP #### [facility] [address] [place] [address] Dr. Jessie Cheney MONO # 1.2 103/ul Critically high 0.3-0.8 [facility] Comment on above: Performed By: #### B MP #### [facility] [address] [place] [address] Dr. Jessie Cheney Monocytes/100 WBC (Bld) 7.8 % Normal 1.7-12.0 [facility] Comment on above: Performed By: #### B MP #### [facility] [address] [place] [address] Dr. Jessie Cheney NEUT # 9.5 103/ul Critically high 1.4-6.5 [facility] Comment on above: Performed By: #### B MP #### [facility] [address] [place] [address] Dr. Jessie Cheney Neutrophils/100 WBC (Bld) 65.0 % Normal 43.0-75.0 [facility] Comment on above: Performed By: #### B MP #### [facility] [address] [place] [address] Dr. Jessie Cheney Platelet mean volume (Bld) [Entitic vol] 10.6 fL Normal 9.5-13.5 [facility] Comment on above: Performed By: #### B MP #### [facility] [address] [place] [address] Dr. Jessie Cheney PLT 373 103/ul Normal 150-450 [facility] Comment on above: Performed By: #### B MP #### [facility] [address] [place] [address] Dr. Jessie Cheney RBC 2.81 106/ul Critically low 4.20-5.40 [facility] Comment on above: Performed By: #### B MP #### [facility] [address] [place] [address] Dr. Jessie Cheney WBC 14.7 103/ul Critically high 4.0-11.0 [facility] Comment on above: Performed By: #### B MP #### [facility] [address] [place] [address] Dr. Jessie Cheney [facility] SARS-CoV-2 (COVID-19) RNA RADHIKA+probe Ql (Unsp [...] for this test is supported by the Criminal Court Judge of Health and Human Service's (HHS's) declaration [...] #### B MP #### [facility] [address] [place] [address] Dr. Jessie Cheney FREE T3on 06-12-2021 FREE T3 1.59 pg/mlL Critically low 2.77-5.27 [facility] Comment on above: Performed By: #### T SH, FT3 #### [facility] [address] [place] [address] Dr. Jessie Cheney FREE T4on 06-12-2021 Free T4 [Mass/Vol] 0.94 ng/dL Normal 0.78-2.19 [facility] Comment on above: Performed By: #### C BC #### [facility] [address] [place] [address] Dr. Jessie Cheney IRON AND TIBCon 06-12-2021 % SATURATION 11.2 % Normal [facility] Comment on above: Performed By: #### T SH, FT3 #### [facility] [address] [place] [address] Dr. Jessie Cheney Iron [Mass/Vol] 43.0 ug/dL Normal 37.0-170.0 [facility] Comment on above: Performed By: #### T SH, FT3 #### [facility] [address] [place] [address] Dr. Jessie Cheney TIBC DIRECT 384.0 ug/dL Normal 261.0-497. 0 [facility] Comment on above: Performed By: #### T SH, FT3 #### [facility] [address] [place] [address] Dr. Jessie Cheney LIVER PROFILEon 06-12-2021 Albumin [Mass/Vol] 3.2 g/dL Critically low 3.5-5.0 [facility] Comment on above: Performed By: #### C BC #### [facility] [address] [place] [address] Dr. Jessie Cheney Albumin/Globulin [Mass ratio] 1.1 {ratio} Normal [facility] Comment on above: Performed By: #### C BC #### [facility] [address] [place] [address] Dr. Jessie Cheney ALP [Catalytic activity/Vol] 95 U/L Normal 38-126 [facility] Comment on above: Performed By: #### C BC #### [facility] [address] [place] [address] Dr. Jessie Cheney ALT [Catalytic activity/Vol] 31 U/L Normal 9-52 [facility] Comment on above: Performed By: #### C BC #### [facility] [address] [place] [address] Dr. Jessie Cheney AST [Catalytic activity/Vol] 13 U/L Critically low 14-36 [facility] Comment on above: Performed By: #### C BC #### [facility] [address] [place] [address] Dr. Jessie Cheney BILI, CONJUGATED 0.1 mg/dL Normal 0.0-0.3 [facility] Comment on above: Performed By: #### C BC #### [facility] [address] [place] [address] Dr. Jessie Cheney Bilirubin [Mass/Vol] 0.2 mg/dL Normal 0.2-1.3 [facility] Comment on above: Performed By: #### C BC #### [facility] [address] [place] [address] Dr. Jessie Cheney Globulin (S) [Mass/Vol] 3.0 g/dL Normal [facility] Comment on above: Performed By: #### C BC #### [facility] [address] [place] [address] Dr. Jessie Cheney Protein [Mass/Vol] 6.2 g/dL Normal 6.1-8.2 [facility] Comment on above: Performed By: #### C BC #### [facility] [address] [place] [address] Dr. Jessie Cheney PROF CHEM 8 (BAS METB)on Anion gap [Moles/Vol] 17.2 mmol/L Normal [facility] Comment on above: Performed By: #### B MP #### [facility] [address] [place] [address] Dr. Jessie Cheney Calcium [Mass/Vol] 9.6 mg/dL Normal 8.4-10.2 [facility] Comment on above: Performed By: #### B MP #### [facility] [address] [place] [address] Dr. Jessie Cheney Chloride [Moles/Vol] 101 mmol/L Normal 98-107 [facility] Comment on above: Performed By: #### B MP #### [facility] [address] [place] [address] Dr. Jessie Cheney CO2 [Moles/Vol] 22.7 mmol/L Normal 22.0-30.0 [facility] Comment on above: Performed By: #### B MP #### [facility] [address] [place] [address] Dr. Jessie Cheney Creatinine [Mass/Vol] 1.10 mg/dL Critically high 0.52-1.04 [facility] Comment on above: Performed By: #### B MP #### [facility] [address] [place] [address] Dr. Jessie Cheney EGFR-AF IRISH 59 mL/min/1.73m2 Critically low >=60 [facility] Comment on above: Performed By: #### B MP #### [facility] [address] [address] [address] Jessie Cheney EGFR-NON AF IRISH 48 mL/min/1.73m2 Critically low >=60 [facility] Comment on above: Performed By: #### B MP #### [facility] [address] [address] [address] Jessie Cheney Glucose [Mass/Vol] 193 mg/dL Critically high 74-106 T [facility] Comment on above: Performed By: #### B MP #### [facility] [address] [address] [address] Jessie Cheney Potassium [Moles/Vol] 3.9 mmol/L Normal 3.4-5.0 [facility] Comment on above: Performed By: #### B MP #### [facility] [address] [address] [address] Jessie Cheney Sodium [Moles/Vol] 137 mmol/L Normal 137-145 [facility] Comment on above: Performed By: #### B MP #### [facility] [address] [address] [address] Jessie Cheney Urea nitrogen [Mass/Vol] 40.0 mg/dL Critically high 7.0-17.0 [facility] Comment on above: Performed By: #### B MP #### [facility] [address] [address] [address] Jessie Cheney Urea nitrogen/Creatinine [Mass ratio] 36.4 mg/mg Normal [facility] Comment on above: Performed By: #### B MP #### [facility] [address] [address] [address] Jessie Cheney PROTIMEon 06-12-2021 INR Coag (PPP) [Relative time] 1.02 {INR} Normal [facility] Comment on above: Performed By: #### C BC #### [facility] [address] [address] [address] Jessie Cheney INR GUIDELINES SEE BELOW Normal [facility] Comment on above: Result Comment: SRAVANTHI RED INR: 2.0 - 3.0 CONDITIONS NOT LISTED BELOW 2.5 - 3.5 FOR PROSTHETIC HEART VALVE REPLACEMENT 2.5 - 3.5 RECURRENT THROMBOSIS Performed By: #### C BC #### [facility] [address] [place] [address] Dr. Jessie Cheney PT Coag (PPP) [Time] 11.0 s Normal 9.0-11.6 [facility] Comment on above: Performed By: #### C BC #### [facility] [address] [place] [address] Dr. Jessie Cheney PTTon 06-12-2021 aPTT Coag (Bld) [Time] 21.0 s Critically low 22.3-36.2 [facility] Comment on above: Performed By: #### C BC #### [facility] [address] [place] [address] Dr. Jessie Cheney TROPONIN, HIGH SENSITIVITYon 06-12-2021 HSTROP 8.4 pg/mL Normal 4.0-35.5 [facility] Comment on above: Result Comment: CUT- OFF POINTS HAVE BEEN ESTABLISHED BASED ON THE FOURTH UNIVERSAL DEFINITIONS OF MYOCARDIAL INFARCTION. THE UPPER REFERENCE LIMIT (URL) OF TROPONIN, DEFINED THE 99TH PERCENTILE OF cTnI DISTRIBUTION IN A REFERENCE POPULATION, HAS BEEN CONFIRMED THE DECISION THRESHOLD FOR LA DIAGNOSIS. Performed By: #### B MP #### [facility] [address] [place] [address] Dr. Jessie Cheney TSHon 06-12-2021 TSH 1.183 uIU/mL Normal 0.470-4.68 0 [facility] Comment on above: Performed By: #### T SH, FT3 #### [facility] [address] [place] [address] Dr. Jessie Cheney TSH RANGE SEE BELOW Normal [facility] Comment on above: Result Comment: <0.3 4 UIU/ml HYPERTHYROID 0.34-5.60 UIU/ml EUTHYROID >5.60 UIU/ml HYPOTHYROID Performed By: #### T SH, FT3 #### [facility] [address] [place] [address] Dr. Jessie Cheney TYPE AND SCREENon 06-12-2021 TYPE AND SCREEN Negative Normal [facility] Comment on above: Performed By: #### T NS #### [facility] [address] [address] [address] Jessie Cehney Vital Signs Date Time Vital Sign Value Performing Clinician Facility 12-26-2023 11:13-0400 Body height 154.94 cm [facility] 12-26-2023 11:13-0400 Body mass index (BMI) [Ratio] 26.1 kg/m2 [facility] 12-26-2023 11:13-0400 Body weight 62.65 kg [facility] 12-26-2023 11:13-0400 Diastolic blood pressure 72 mm[Hg] [facility] 12-26-2023 11:13-0400 Heart rate 52 /min [facility] 12-26-2023 11:13-0400 Respiratory rate 12 /min [facility] 12-26-2023 11:13-0400 Systolic blood pressure 155 mm[Hg] [facility] 09-27-2023 11:44-0400 Body height 154.94 cm DO Ramin Ball Work Phone: [facility] 09-27-2023 11:44-0400 Body mass index (BMI) [Ratio] 25.6 kg/m2 DO Ramin Ball Work Phone: [facility] 09-27-2023 11:44-0400 Body weight 61.46 kg DO Ramin Ball Work Phone: [facility] 09-27-2023 11:44-0400 Diastolic blood pressure 61 mm[Hg] DO Ramin Ball Work Phone: [facility] 09-27-2023 11:44-0400 Heart rate 73 /min DO Ramin Ball Work Phone: [facility] 09-27-2023 11:44-0400 Respiratory rate 12 /min DO Ramin Ball Work Phone: [facility] 09-27-2023 11:44-0400 Systolic blood pressure 161 mm[Hg] DO Ramin Ball Work Phone: [facility] 08-24-2023 11:39-0500 Body height 154.94 cm DO Ramin Ball Work Phone: [facility] 08-24-2023 11:39-0500 Body mass index (BMI) [Ratio] 25.9 kg/m2 DO Ramin Ball Work Phone: [facility] 08-24-2023 11:39-0500 Body weight 62.14 kg DO Ramin Ball Work Phone: [facility] 08-24-2023 11:39-0500 Diastolic blood pressure 75 mm[Hg] DO Ramin Ball Work Phone: [facility] 08-24-2023 11:39-0500 Heart rate 102 /min DO Ramin Ball Work Phone: [facility] 08-24-2023 11:39-0500 Respiratory rate 12 /min DO Ramin Ball Work Phone: [facility] 08-24-2023 11:39-0500 Systolic blood pressure 127 mm[Hg] DO Ramin Ball Work Phone: [facility] 06-27-2023 14:00-0500 Body height 154.94 cm Ramin Ball Other [facility] 06-27-2023 14:00-0500 Body mass index (BMI) [Ratio] 27.02 kg/m2 Ramin Ball Other [facility] [employer] Other 06-27-2023 14:00-0500 Body weight 64.86 kg Ramin Ball Other [facility] 06-27-2023 14:00-0500 Diastolic blood pressure 60 mm[Hg] Ramin Ball Other [facility] 06-27-2023 14:00-0500 Respiratory rate 12 /min Ramin Ball Other [facility] [employer] Other 06-27-2023 14:00-0500 Systolic blood pressure 130 mm[Hg] Ramin Ball Other [facility] 03-27-2023 11:30-0400 Body height 154.94 cm Ramin Ball Other [employer] Other 03-27-2023 11:30-0400 Body mass index (BMI) [Ratio] 26.98 kg/m2 Ramin Ball Other [employer] Other 03-27-2023 11:30-0400 Body weight 64.77 kg Ramin Ball Other [employer] Other 03-27-2023 11:30-0400 Diastolic blood pressure 72 mm[Hg] Ramin Ball Other [employer] Other 03-27-2023 11:30-0400 Respiratory rate 12 /min Ramin Ball Other [employer] Other 03-27-2023 11:30-0400 Systolic blood pressure 199 mm[Hg] Ramin Ball Other [employer] Other 02-01-2023 13:07-0400 Diastolic blood pressure 54 mm[Hg] DO Ramin Ball Work Phone: [facility] 02-01-2023 13:07-0400 Heart rate 52 /min DO Ramin Ball Work Phone: [facility] 02-01-2023 13:07-0400 Respiratory rate 16 /min DO Ramin Ball Work Phone: [facility] 02-01-2023 13:07-0400 SaO2% (BldA) [Mass fraction] 97 % DO Ramin Ball Work Phone: [facility] 02-01-2023 13:07-0400 Systolic blood pressure 105 mm[Hg] DO Ramin Ball Work Phone: [facility] 01-30-2023 11:34-0400 Body temperature 97.9 [degF] DO Ramin Ball Work Phone: [facility] 01-13-2023 11:01-0400 Body temperature 97.6 [degF] DO Ramin Ball Work Phone: [facility] 01-13-2023 11:01-0400 Body weight 64.22 kg DO Ramin Ball Work Phone: [facility] 01-13-2023 11:01-0400 Diastolic blood pressure 75 mm[Hg] DO Ramin Ball Work Phone: [facility] 01-13-2023 11:01-0400 Heart rate 58 /min DO Ramin Ball Work Phone: [facility] 01-13-2023 11:01-0400 Respiratory rate 20 /min DO Ramin Ball Work Phone: [facility] 01-13-2023 11:01-0400 SaO2% (BldA) [Mass fraction] 97 % DO Ramin Ball Work Phone: [facility] 01-13-2023 11:01-0400 Systolic blood pressure 183 mm[Hg] DO Ramin Ball Work Phone: [facility] 12-23-2022 11:00-0400 Body height 154.94 cm Ramin Ball Other [facility] [employer] Other 12-23-2022 11:00-0400 Body mass index (BMI) [Ratio] 26.98 kg/m2 Ramin Ball Other [facility] [employer] Other 12-23-2022 11:00-0400 Body weight 64.77 kg Ramin Ball Other [facility] [employer] Other 12-23-2022 11:00-0400 Diastolic blood pressure 83 mm[Hg] Ramin Ball Other [facility] [employer] Other 12-23-2022 11:00-0400 Respiratory rate 12 /min Ramin Ball Other [employer] Other 12-23-2022 11:00-0400 Systolic blood pressure 173 mm[Hg] Ramin Ball Other [facility] [employer] Other 07-14-2022 09:57-0500 Body height 152.4 cm DO Ramin Ball Work Phone: [facility] 07-14-2022 09:57-0500 Body weight 63.1 kg DO Ramin Ball Work Phone: [facility] 07-14-2022 09:57-0500 Diastolic blood pressure 73 mm[Hg] DO Ramin Ball Work Phone: [facility] 07-14-2022 09:57-0500 Heart rate 61 /min DO Ramin Ball Work Phone: [facility] 07-14-2022 09:57-0500 Respiratory rate 20 /min DO Ramin Ball Work Phone: [facility] 07-14-2022 09:57-0500 SaO2% (BldA) [Mass fraction] 99 % DO Ramin Ball Work Phone: [facility] 07-14-2022 09:57-0500 Systolic blood pressure 173 mm[Hg] DO Ramin Ball Work Phone: [facility] 07-08-2022 14:30-0500 Body height 154.94 cm Ramin Ball Other [facility] [employer] Other 07-08-2022 14:30-0500 Body mass index (BMI) [Ratio] 26.75 kg/m2 Ramin Ball Other [facility] [employer] Other 07-08-2022 14:30-0500 Body weight 64.23 kg Ramin Ball Other [facility] [employer] Other 07-08-2022 14:30-0500 Diastolic blood pressure 62 mm[Hg] Ramin Ball Other [facility] [employer] Other 07-08-2022 14:30-0500 Respiratory rate 12 /min Ramin Ball Other [facility] [employer] Other 07-08-2022 14:30-0500 Systolic blood pressure 130 mm[Hg] Ramin Ball Other [facility] [employer] Other 09-13-2021 14:35-0400 Body temperature 98.1 [degF] DO Ramin Ball Work Phone: [facility] 09-13-2021 14:35-0400 Body weight 66.13 kg DO Ramin Ball Work Phone: [facility] 09-13-2021 14:35-0400 Diastolic blood pressure 56 mm[Hg] DO Ramin Ball Work Phone: [facility] 09-13-2021 14:35-0400 Heart rate 62 /min DO Ramin Ball Work Phone: [facility] 09-13-2021 14:35-0400 Respiratory rate 20 /min DO Ramin Ball Work Phone: [facility] 09-13-2021 14:35-0400 SaO2% (BldA) [Mass fraction] 97 % DO Ramin Ball Work Phone: [facility] 09-13-2021 14:35-0400 Systolic blood pressure 136 mm[Hg] DO Ramin Ball Work Phone: [facility] 06-28-2021 13:01-0500 Body height 152.4 cm DO Ramin Ball Work Phone: [facility] 06-24-2021 10:45-0500 Body height 154.94 cm Estuardo Epps Other [employer] [facility] [employer] Other 06-24-2021 10:45-0500 Body mass index (BMI) [Ratio] 27.39 kg/m2 Estuardo Epps Other [employer] Other 06-24-2021 [id number] Body weight 65.77 kg Estuardo Epps Other [facility] [employer] Other Encounters Encounter Date Encounter Type Care Provider Facility Start: 03-13-2024 End: 03-13-2024 ambulatory [facility] Work Phone: Start: 03-13-2024 End: 03-13-2024 Patient encounter procedure [facility] Work Phone: Start: 02-06-2024 End: 02-06-2024 ambulatory [facility] Work Phone: Start: 02-06-2024 End: 02-06-2024 Patient encounter procedure [facility] Work Phone: Start: 01-09-2024 Non-patient / Non-visit [facility] Work Phone: Start: 01-04-2024 End: 01-04-2024 ambulatory [facility] Work Phone: Start: 01-04-2024 End: 01-04-2024 Patient encounter procedure [facility] Work Phone: Start: 12-26-2023 End: 12-26-2023 ambulatory [facility] Work Phone: Start: 12-26-2023 End: 12-26-2023 Patient encounter procedure [facility] Work Phone: Start: 11-28-2023 End: 11-28-2023 ambulatory [facility] Work Phone: Start: 11-28-2023 End: 11-28-2023 Patient encounter procedure [facility] Work Phone: Start: 11-06-2023 Non-patient / Non-visit [facility] Work Phone: Start: 10-23-2023 End: 10-23-2023 ambulatory DO Ramin Ball Work Phone: [facility] Work Phone: Start: 10-23-2023 End: 10-23-2023 Patient encounter procedure DO Ramin Ball Work Phone: [facility] Work Phone: Start: 09-27-2023 End: 09-27-2023 ambulatory DO Ramin Ball Work Phone: [facility] Work Phone: Start: 09-27-2023 End: 09-27-2023 Patient encounter procedure DO Ramin Ball Work Phone: [facility] Work Phone: Start: 08-24-2023 End: 08-24-2023 Patient encounter procedure DO Ramin Ball Work Phone: [facility] Work Phone: Start: 08-14-2023 End: 08-14-2023 ambulatory Ramin Ball Facility:[facility] Start: 08-14-2023 End: 08-14-2023 Patient encounter procedure DO Ramin Ball Work Phone: [facility] Work Phone: Start: 08-09-2023 End: 08-09-2023 ambulatory Ti Amaral [facility] Facility:[facility] Start: 08-09-2023 End: 08-09-2023 ambulatory DO Ramin Ball Work Phone: [facility] Work Phone: Start: 08-09-2023 End: 08-09-2023 Departed Referred DO Ramin Ball Work Phone: [facility] Start: 08-07-2023 End: 08-07-2023 ambulatory Ramin Ball Facility:[facility] Start: 08-07-2023 End: 08-07-2023 ambulatory DO Ramin Ball Work Phone: [facility] Work Phone: Start: 08-07-2023 End: 08-07-2023 Patient encounter procedure DO Ramin De Paz Work Phone: [facility] Work Phone: Start: 08-01-2023 Non-patient / Non-visit DO Ramin De Paz Work Phone: [facility] [employer] [facility] Work Phone: Start: 07-21-2023 End: 07-21-2023 ambulatory Ramin De Paz Other [facility] [employer] Other Start: 07-21-2023 Telephone encounter Ramin De P[facility] Start: 07-20-2023 End: 07-20-2023 ambulatory Ramin De Paz Other [facility] [employer] Other Start: 07-20-2023 Telephone encounter Ramin De Paz [facility] Start: 07-19-2023 End: 07-19-2023 ambulatory Ramin De Paz Other [employer] Other Start: 07-19-2023 Telephone encounter Ramin De Paz [facility] Start: 07-13-2023 End: 07-13-2023 ambulatory Ramin De Paz Facility:[facility] Start: 07-13-2023 End: 07-13-2023 ambulatory DO Ramin De Paz Work Phone: [facility] Work Phone: Start: 07-13-2023 End: 07-13-2023 Patient encounter procedure DO Ramin De Paz Work Phone: [facility] [place] Work Phone: Start: 07-13-2023 Registered Recurring DO Aryan in [place] Work Phone: [facility] Work Phone: Start: 07-11-2023 End: 07-11-2023 ambulatory Ramin De Paz Other [employer] Other Start: 07-11-2023 Telephone encounter Ramin De Paz [facility] Start: 06-27-2023 End: 06-27-2023 ambulatory Ramin De Paz Other [employer] Other Start: 06-27-2023 Office outpatient visit 25 minutes Ramin Ball [facility] Start: 06-27-2023 End: 06-27-2023 Patient encounter procedure DO Ramin Ball Work Phone: [facility] Work Phone: Start: 06-14-2023 End: 06-14-2023 ambulatory Ramin De Paz Other [employer] Other Start: 06-14-2023 Nursing evaluation o f patient and report Ramin De Paz [facility] Start: 05-05-2023 End: 05-05-2023 ambulatory Ramin De Paz Other [employer] Other Start: 05-05-2023 Nursing evaluation o f patient and report Ramin De Paz [facility] Start: 03-27-2023 End: 03-27-2023 ambulatory Ramin De Paz Other [employer] Other Start: 03-27-2023 Office outpatient visit 25 minutes Ramin De Paz [facility] Start: 02-10-2023 End: 02-10-2023 ambulatory Ramin De Paz Other [employer] Other Start: 02-10-2023 Nursing evaluation o f patient and report Ramin De Paz [facility] Start: 02-08-2023 End: 02-08-2023 ambulatory Ramin Tarun Other [employer] Other Start: 02-08-2023 Telephone encounter Ramin De Paz [facility] Start: 01-13-2023 End: 01-13-2023 ambulatory DO Ramin Tarun Work Phone: [facility] Work Phone: Start: 01-13-2023 End: 01-13-2023 Registered Recurring DO Ramin De Paz Work Phone: [facility] Work Phone: Start: 01-05-2023 End: 01-05-2023 ambulatory Ramin De Paz Other [employer] Other Start: 01-05-2023 Telephone encounter Ramin De Paz [facility] Start: 12-23-2022 End: 12-23-2022 ambulatory Ramin De Paz Other [employer] Other Start: 12-23-2022 Patient encounter procedure Ramin De Paz [facility] Start: 12-19-2022 End: 12-19-2022 ambulatory Ramin De Paz Other [employer] Other Start: 12-19-2022 Telephone encounter Ramin De Paz [facility] Start: 11-23-2022 End: 11-23-2022 ambulatory Ramin De Paz Other [employer] Other Start: 11-23-2022 Nursing evaluation o f patient and report Ramin De Paz [facility] Start: 11-21-2022 End: 11-21-2022 ambulatory Ramin De Paz Other [employer] Other Start: 11-21-2022 Telephone encounter Ramin De Paz [facility] Start: 08-12-2022 End: 08-12-2022 ambulatory Ramin De Paz Other [employer] Other Start: 08-12-2022 Nursing evaluation o f patient and report Ramin De Paz [facility] Start: 07-14-2022 End: 07-14-2022 ambulatory DO Ramin De Paz Work Phone: [facility] Work Phone: Start: 07-14-2022 End: 07-14-2022 Registered Recurring DO Ramin De Paz Work Phone: [facility] Work Phone: Start: 07-11-2022 End: 07-11-2022 ambulatory DO Ramin Tarun Work Phone: [facility] Work Phone: Start: 07-11-2022 End: 07-11-2022 Patient encounter procedure DO Ramin Tarun Work Phone: [facility] [place] Work Phone: Start: 07-11-2022 Registered Recurring DO Aryan in [place] Work Phone: [facility] Work Phone: Start: 07-08-2022 End: 07-08-2022 ambulatory Ramin De Paz Other [employer] Other Start: 07-08-2022 Office outpatient visit 25 minutes [facility] Start: 05-31-2022 End: 05-31-[address] RAMIN DE PAZ Facility:[facility] Start: 05-30-2022 End: 05-31-[address] RAMIN DE PAZ Facility:[facility] Start: 03-15-2022 End: 03-16-[address] RAMIN DE PAZ Facility:[facility] Start: 01-10-2022 End: 01-10-2022 Registered Recurring DO Ramin [facility] Paz [facility] Start: 01-07-2022 End: 01-07-[address] RAMIN DE PAZ Facility:[facility] Start: 12-22-2021 Adult health examination Ramin De Paz Other [employer] Other Start: 08-18-2021 End: 08-19-[address] RAMIN DE PAZ Facility:[facility] Start: 08-17-2021 End: 08-17-[address] RAMIN DE PAZ Facility:[facility] Start: 07-26-2021 End: 07-27-[address] RAMIN DE PAZ Facility:[facility] Start: 07-09-2021 End: 07-16-[address] RAMIN DE PAZ Facility:[facility] Start: 06-24-2021 End: 06-24-2021 ambulatory Estuardo Epps Other [employer] Other Start: 06-24-2021 Office outpatient visit 25 minutes Estuardo Epps [facility] Start: 06-21-2021 End: 06-22-[address] RAMIN DE PAZ Facility:[facility] Start: 06-21-2021 End: 06-21-2021 Pre-procedure evaluation check Ramin De Paz Other [employer] Other Start: 06-17-2021 End: 06-17-[address] RAMIN DE PAZ Facility:[facility] Start: 06-12-2021 End: 06-16-[address] RAMIN DE PAZ Facility:[facility] Start: 05-04-2021 Chart abstracting Chip lackey MD Work Phone: Hematology/Oncology Start: 09-19-2016 End: 09-20-2016 Patient encounter procedure JOSH GALLEGO Facility:[facility] Procedures Date Procedure Procedure Detail [...] Activity Detail Author Start: 01-31-2023 End: 02-01-2023 [facility] Start: 01-30-2023 [facility] Start: 01-27-2023 End: 01-27-2023 [facility] Start: 01-24-2023 [facility] Start: 02-17-2021 Influenza vaccination INFLUENZA (#1) [facility] Start: 2010 ADVANCE DIRECTIVE DISCUSSION ADVANCE DIRECTIVE DISCUSSION [facility] Start: 2010 BONE DENSITY BONE DENSITY [facility] Start: 2010 PNEUMOVAX AGE 65 AND OVER WITH 5YR LOOKBACK (#1) PNEUMOVAX AGE 65 AND OVER WITH 5YR LOOKBACK (#1) [facility] Start: 11-13-1995 SHINGRIX VACCINE (1 of 2) SHINGRIX VACCINE (1 of 2) [facility] Start: 1990 COLOGUARD (FIT-DNA) COLOGUARD (FIT-DNA) [facility] Start: 1990 Colonoscopy COLONOSCOPY [facility] Start: 1990 COLORECTAL CANCER SCREENING COLORECTAL CANCER SCREENING [facility] Start: [address] COLONOGRAPHY [facility] Start: 1990 DIABETES SCREEN DIABETES SCREEN [facility] Start: 1990 FECAL OCCULT BLOOD FECAL OCCULT BLOOD [facility] Start: 1990 LIPID SCREEN LIPID SCREEN [facility] Start: 1990 SIGMOIDOSCOPY SIGMOIDOSCOPY [facility] Start: 1964 Urine microalbumin profile DTAP,TDAP,TD (1 - Tdap) [facility] Start: 11-13-1963 HEPATITIS C SCREENING HEPATITIS C SCREENING [facility] Start: 1957 Adult depression screening assessment DEPRESSION SCREENING [facility] Start: 1957 COVID-19 VACCINE (1) [facility] Comprehensive metabo lic 1999 panel - Serum or Plasma [facility] Work Phone: Comprehensive metabo lic 1999 panel - Serum or Plasma [facility] Comprehensive metabo lic 1999 panel - Serum or Plasma [facility] Comprehensive metabo lic 1999 panel - Serum or Plasma [facility] Comprehensive metabo lic 1999 panel - Serum or Plasma [facility] Ferritin [Mass/volum e] in Serum or Plasma [facility] Work Phone: Ferritin [Mass/volum e] in Serum or Plasma [facility] Ferritin [Mass/volum e] in Serum or Plasma [facility] Microalbumin [Mass/volume] in Urine [facility] Immunizations Immunization Date Immunization Notes Care Provider Gabriella hernandez 04-01-2022 influenza virus vaccine, split virus (incl. purified surface antigen) Ramin De Paz Other [facility] [employer] Other 04-01-2022 influenza virus vaccine, unspecified formulation DO Ramin De Paz Work Phone: [facility] 04-01-2022 influenza, high dose seasonal, preservative-free Ramin De Paz Other [facility] [employer] Other 04-21-2021 influenza virus vaccine, split virus (incl. purified surface antigen) Ramin De Paz Other [facility] [employer] Other 04-21-2021 influenza virus vaccine, unspecified formulation DO Ramin De Paz Work Phone: [facility] 04-15-2020 influenza virus vaccine, split virus (incl. purified surface antigen) Ramin De Paz Other [facility] [employer] Other 04-15-2020 influenza virus vaccine, unspecified formulation DO Ramin De Paz Work Phone: [facility] 04-02-2019 influenza virus vaccine, split virus (incl. purified surface antigen) Ramin De Paz Other [facility] [employer] Other 04-02-2019 influenza virus vaccine, unspecified formulation DO Ramin De Paz Work Phone: [facility] 05-02-2018 influenza virus vaccine, split virus (incl. purified surface antigen) Ramin De Paz Other [facility] [employer] Other 05-02-2018 influenza virus vaccine, unspecified formulation DO Ramin De Paz Work Phone: [facility] 04-23-2018 influenza virus vaccine, split virus (incl. purified surface antigen) Ramin De Paz Other [facility] [employer] Other 04-23-2018 influenza virus vaccine, unspecified formulation DO Ramin De Paz Work Phone: [facility] 01-31-2018 pneumococcal polysaccharide vaccine, 23 valent Ramin De Paz Other [facility] 03-21-2016 influenza virus vaccine, split virus (incl. purified surface antigen) Ramin De Paz Other [facility] [employer] Other 03-21-2016 influenza virus vaccine, unspecified formulation DO Ramin De Paz Work Phone: [facility] 03-27-2015 pneumococcal conjuga te vaccine, 13 valent Ramin De Paz Other [facility] 03-20-2013 tetanus and diphther ia toxoids, adsorbed, preservative free, for adult use (5 Lf of tetanus toxoid and 2 Lf of diphtheria toxoid) Ramin De Paz Other [facility] Payers Date Payer Category Payer Self-pay [id number] 2019 Medicare HUMANA MEDICARE HU[employer]NA MEDICARE PPO [id number] 2019-Present [phone] [place] [address] PPO [id number] 1959 Unknown [id number] 1945 Unknown [id number] 1945 Unknown [id number] 2..[id number] 1945 Unknown [id number] [id number]3 1945 Unknown [id number] 2.16.840.1.559922.3.579.2.593 1945 Unknown [id number] 2.16.840.1.710152.3.579.2.593 1945 Unknown [id number] 2.16.840.1.699066.3.579.2.593 1945 Unknown [id number] 2.16.840.1.924340.3.579.2.593 1945 Unknown [id number] 2.16.840.1.111202.3.579.2.593 1945 Unknown [id number] 2.16.840.1.505472.3.579.2.593 1945 Unknown [id number] 2.16.840.1.833284.3.579.2.593 1945 Unknown [id number] 2.16.840.1.050311.3.579.2.593 1945 Unknown [id number] 2.16.840.1.862333.3.579.2.593 Medicare [id number] [id number] Unknown [id number] 2.16.840.1.627161.3.579.2.531 Unknown [id number] 2.16.840.1.703970.3.579.2.531 Unknown [id number] 2.16.840.1.518422.3.579.2.531 Unknown [id number] [id number] Unknown [id number] [id number] Social History Date Type Detail Facility Start: 05-04-2021 End: 06-27-2023 Tobacco smoking status COIS Ex-smoker [facility] Start: 1945 Sex Assigned At Not on file C [facility] Sex Assigned At Sex Assigned At Bir th [employer] Other Start: 1945 Sex Assigned At Female F [facility] Medical Equipment Procedure Code Equipment Code Equipment Origin al Text Equipment Identifier Dates Capsule endoscopy, for patency of lumen evaluation Video capsule endoscopy system [id number] FDA Start: 06-30-2021 Goals Date Patient Goal Desired Activity /State Clinical Notes 06-24-2021 to 07-21-2023 Note Date & Type Note Facility 07-21-2023 Evaluation note Encounter Date Diagnosis Assessment Notes Jul, Type 2 diabetes mellitus with hyperglycemia , without long-term current use of insulin (ICD-10 - E11.65) [employer] Other 01-31-2024 Evaluation note* Encounter Date Diagnosis Assessment Notes Treatment Notes Treatment Clinical Notes Jun, Type 2 diabetes mellitus with hyperglycemia, without long-term current use of insulin (ICD-10 - E11.65) [employer] Other 01-09-2024 Evaluation note* Encounter Date Diagnosis [...] anemia (ICD-10 - D51.0) Continue B12 supplementation [employer] Other 12-27-2023 Evaluation note* Encounter Date Diagnosis Assessment Notes Treatment Notes Treatment Clinical Notes May, Pernicious anemia (ICD-10 - D51.0) [employer] Other 11-17-2023 Evaluation note* Encounter Date Diagnosis Assessment Notes Treatment Notes Treatment Clinical Notes Apr, Pernicious anemia (ICD-10 - D51.0) [employer] Other 10-09-2023 Evaluation note* Encounter Date Diagnosis [...] (ICD-10 - D51.0) Continue B12 injections monthly [employer] Other 08-25-2023 Evaluation note* Encounter Date Diagnosis Assessment Notes Treatment Notes Treatment Clinical Notes Jan, Pernicious anemia (ICD-10 - D51.0) [employer] Other 07-20-2023 Evaluation note* Encounter Date Diagnosis Assessment Notes Treatment Notes Treatment Clinical Notes Dec, Stage 4 chronic kidney disease (ICD-10 - N18.4) [employer] Other 07-20-2023 Evaluation note* Encounter Date Diagnosis Assessment Notes Treatment Notes Treatment Clinical Notes Dec, Primary hypertension (ICD-10 - I10) Dec, Stage 4 chronic kidney disease (ICD-10 - N18.4) [employer] Other 07-07-2023 Evaluation note* Encounter Date Diagnosis [...] prevent callus formation.Fall precautions. Dec, Atherosclerosis of tetlin artery of left lower extremity with intermittent [...] - E55.9) Dec, Other s/p partial thyroidectomy [employer] Other 07-03-2023 Evaluation note* Encounter Date Diagnosis Assessment Notes Treatment Notes Treatment Clinical Notes Dec, Atherosclerosis of tetlin artery of left lower extremity with intermittent claudication (ICD-10 - I70.212) [employer] Other 06-07-2023 Evaluation note* Encounter Date Diagnosis Assessment Notes Treatment Notes Treatment Clinical Notes Nov, Pernicious anemia (ICD-10 - D51.0) [employer] Other 02-24-2023 Evaluation note* Encounter Date Diagnosis Assessment Notes Treatment Notes Treatment Clinical Notes Jul, Pernicious anemia (ICD-10 - D51.0) [employer] Other 01-31-2023 Progress note Author Tatiana Christianson [facility] July 19, 2022 9:00am Note Date/Time July 14, 2022 1 0:22am [facility] at [address] [address] Hem/Onc Follow Up Note - OP Signed Patient: Maame Velasco MR#: [id number] : 1945 Acct:[id number] Age/Sex: 76 / F Type: REG RCR Copies to: DO Leo Calderon MD~ Subjective Date/Time of Service: Date of Service: 07/14/2022 Time of Service: 10:20 Chief Complaint: Patient is here for a 6 month follow up with labs for review. No concerns voiced at this time. HPI: 75-year-old female with a history of anemia previously followed by [facility]. She presented to the emergency room [...] with Dr. Epps. 07/12/20 She was at [facility] and got venofer. She got premedication with a steroid because she had a slight reaction to her venofer in the hospital. She did fine when she got the iron with the premedications. She had her iron at [place] and then came here to get labs from [facility] on the same day. her hb 12.8. [...] % (Auto) 60.5, Lymph % (Auto) 27.7, Ashley % (Auto) 8.0, Eos % (Auto) 3.1, Baso % (Auto) 0.7, Nucleat RBC Rel Count 0.1, Neut # (Auto) 5.8, Lymph # (Auto) 2.6, Ashley # (Auto) 0.8, Eos # (Auto) 0.3, [...] for coordination of care (as documented) and evnr-hd-[id number] counseling of patient and/or family. Dictated By: Tatiana Christianson APRN DD/ 1020 Signed By: <Electronically signed by MARY ALICE Christianson> 07/19/22 0900 [facility] Work Phone: 1(713) 805-321501-20-2023 Evaluation note* Encounter Date Diagnosis Assessment Notes [...] and feet daily for blisters and ulcerations. [employer] Other 03-28-2022 Progress note Author Jarrett Loyola [facility] September 13, 2021 2:57pm Note Date/Time September 13, 2021 2:5 3pm [facility] [place] [address] Hem/Onc Follow Up Note - OP Signed Patient: Maame Velasco MR#: [id number] : 1945 Acct:[id number] Age/Sex: 75 / F Type: REG RCR [...] a history of anemia previously followed by [facility]. She presented to the emergency room [...] with Dr. Epps. 07/12/20 She was at [facility] and got venofer. She got premedication with a steroid because she had a slight reaction to her venofer in the hospital. She did fine when she got the iron with the premedications. She had her iron at [place] and then came here to get labs from [facility] on the same day. her hb 12.8. [...] for coordination of care (as documented) and ankx-nk-dyca counseling of patient and/or family. [facility] - Medical History Medical History: Medical History [...] % (Auto) 56.4, Lymph % (Auto) 30.4, Ashley % (Auto) 9.4, Eos % (Auto) 3.2, Baso % (Auto) 0.6, Neut # (Auto) 4.9, Lymph # (Auto) 2.6, Ashley # (Auto) 0.8, Eos # (Auto) 0.3, [...] by Jarrett Loyola II, DO> 09/13/21 1457 [facility] Work Phone: 1(713) 438-360902-21-2022 Progress note Author Cora Gaming [facility] August 09, 2021 3:16pm Note Date/Time August 09, 2021 2:57pm [facility] [place] [address] Hem/Onc Follow Up Note - OP Signed Patient: Maame Velasco MR#: [id number] : 1945 Acct:[id number] Age/Sex: 75 / F Type: REG RCR [...] patient states that she got iron at [place] 3 weeks ago. HPI: 75-year-old female with a history of anemia previously followed by [facility]. She presented to the emergency room on [...] with Dr. Epps. 07/12/20 She was at [facility] and got venofer. She got premedication with a steroid because she had a slight reaction to her venofer in the hospital. She did fine when she got the iron with the premedications. She had her iron at [place] and then came here to get labs from [facility] on the same day. her hb 12.8. [...] for coordination of care (as documented) and pamg-fu-txtf counseling of patient and/or family. [facility] - Medical History Medical History: Medical History [...] signed by MARY ALICE Gaming> 08/09/21 1516 [facility] Work Phone: 1(107) 971-735001-24-2022 Progress note Author Jarrett Loyola [facility] July 12, 2021 1:33pm Note Date/Time July 12, 2021 1 :24pm [facility] at [address] [address] Hem/Onc Follow Up Note - OP Signed Patient: Maame Velasco MR#: [id number] : 1945 Acct:[id number] Age/Sex: 75 / F Type: REG RCR [...] more dose iv iron already scheduled at [place]. . check cbc, cmp, iron, ferritin, iron saturation prior to f/u. - History of Present Illness Chief Complaint: Patient is here for a 2 week follow up. She got iron last Monday at [place]. She states she will get another dose this coming Monday. HPI: 75-year-old female with a history of anemia previously followed by [facility]. She presented to the [...] with Dr. Epps. 07/12/20 She was at [facility] and got venofer. She got premedication with a steroid because she had a slight reaction to her venofer in the hospital. She did fine when she got the iron with the premedications. She had her iron at [place] and then came here to get labs from [facility] on the same day. her hb 12.8. [...] for coordination of care (as documented) and xlmm-[id number] counseling of patient and/or family. [facility] - Medical History Medical History: Medical History (Last Reviewed 06/30/21 @ 07:23 by Sydni Moon RN) Diabetes Hyperlipidemia Hypertension Iron deficiency anemia Mini stroke - Surgical History Surgical History: Surgical History (Last Reviewed 06/30/21 @ 07:23 by Syndi Moon RN) History of appendectomy History of [...] % (Auto) 85.3, Lymph % (Auto) 12.3, Ashley % (Auto) 1.7, Eos % (Auto) 0.3, Baso % (Auto) 0.4, Neut # (Auto) 7.0, Lymph # (Auto) 1.0, Ashley # (Auto) 0.1, Eos # (Auto) 0.0, [...] by Jarrett Loyola II, DO> 07/12/21 1333 [facility] Work Phone: 1(151) 180-805401-10-2022 Progress note Author Jarrett Loyola [facility] June 28, 2021 3:36pm Note Date/Time June 28, 2021 1 :28pm [facility] at [place] [id number] Hem/Onc Follow Up Note - OP Signed Patient: Maame Velasco MR#: [id number] : 1945 Acct:[id number] Age/Sex: 75 / F Type: REG RCR [...] a history of anemia previously followed by [facility]. She presented to the emergency room on [...] for coordination of care (as documented) and rgse-qm-mfep counseling of patient and/or family. [facility] - Medical History Medical History: Medical History [...] by Jarrett Loyola II, DO> 06/28/21 1536 [facility] Work Phone: [phone]) 173-409401-06-2022 Evaluation note* Encounter Date Diagnosis Assessment Notes Treatment Notes Treatment Clinical Notes Jun, Iron deficiency anemia (ICD-10 - D50.9) PROCEED WITH CAPSULE ENDOSCOPY Jun, Gastric AVM (ICD-10 - K31.819) [facility] [employer] Other Evaluation note* Diagnosis Onset Date Resolution Status Iron deficiency anemia acute [facility] Work Phone: Evaluation noteNo [facility] [employer] ([employer]) Other Evaluation note* Diagnosis Onset Date Resolution Status CKD (chronic kidney disease) stage 3, GFR 30-59 ml/min acute Hypercalcemia acute Hypertension acute Iron deficiency anemia acute [facility] Work Phone: Evaluation note* Diagnosis Onset [...] acute Nicotine dependence, cigarettes, in remission acute [facility] Work Phone: Evaluation note* Diagnosis Onset Date Resolution Status Cerebral atherosclerosis acu te Chronic kidney disease acute Diabetes mellitus with hyperglycemia acute Hypertension acute Mass of left lung acute Nicotine dependence, cigarettes, in remission acute Cerebral atherosclerosis acu te Chronic kidney disease acute Diabetes mellitus with hyperglycemia acute Hypertension acute Mass of left lung acute Nicotine dependence, cigarettes, in remission acute [facility] Work Phone: Evaluation note* Diagnosis Onset Date Resolution Status Cerebral atherosclerosis acu te Chronic kidney disease acute Diabetes mellitus with hyperglycemia acute Hypertension acute Mass of left lung acute Nicotine dependence, cigarettes, in remission acute [facility] Work Phone: Evaluation note* Diagnosis Onset Date [...] acute Medicare annual wellness visit, subsequent noneactive [facility] Work Phone: Evaluation note* Diagnosis Onset Date Resolution Status Cerebral atherosclerosis acu te Chronic kidney disease acute Diabetes mellitus with hyperglycemia acute Hypercalcemia acute Hypertension acute Iron deficiency anemia acute Mass of left lung acute Nicotine dependence, cigarettes, in remission acute Medicare annual wellness visit, subsequent noneactive Mammogram declined noneactiv e [facility] Work Phone: Evaluation note* Diagnosis Onset Date Resolution Status Cerebral atherosclerosis acu te Chronic kidney disease acute Diabetes mellitus with hyperglycemia acute Hypercalcemia acute Hypertension acute Iron deficiency anemia acute Mass of left lung acute Nicotine dependence, cigarettes, in remission acute Medicare annual wellness visit, subsequent noneactive Mammogram declined noneactiv e Pernicious anemia acute [facility] Work Phone: History general Narrative - Reported* Type Description Date Medical History DM II Medical History hyperlipidemia Medical History HTN Medical History GERD Medical History mini stroke [employer] Other History general Narrative - Reported* Type [...] BX 07/2006 Hospitalization History SEE SURGICAL HX [employer] Other History general Narrative - Reported* Type [...] BX 07/2006 Hospitalization History SEE SURGICAL HX [employer] Other Progress note Author Jarrett Loyola [facility] January 13, 2023 11:29am Note Date/Time January 13, 2023 11:2 2am [place] [address] Hem/Onc Follow Up Note - OP Signed Patient: Maame Velasco MR#: [id number] : 1945 Acct:[id number] Age/Sex: 77 / F Type: REG RCR [...] a history of anemia previously followed by [facility]. She presented to the emergency room [...] with Dr. Epps. 07/12/20 She was at [facility] and got venofer. She got premedication with a steroid because she had a slight reaction to her venofer in the hospital. She did fine when she got the iron with the premedications. She had her iron at [place] and then came here to get labs from [facility] on the same day. her hb 12.8. [...] is no longer eating popcorn by the bagMojave Networkss Hgb- 12.4; Iron saturation - 19.3%; ferritin- [...] he now follows with Dr. Grace at [facility]. - Physical Exam ECOG PS: [...] for coordination of care (as documented) and ygqk-ae-rxoo counseling of patient and/or family. [facility] - Medical History Medical History: Medical History [...] 3.8, Globulin (PEP) 3.1, Albumin/Globulin (PEP) 1.2, Nrbfz-8-Owtbjdvny 0.3, Ixvnd-4-Dyfxjhdxi 1.1 H,Beta Globulins 0.9, Gamma Globulins 0.9, M-Gabriel Comment:, PEP Note , IgG 826, IgA 60 L, IgM 61, Serum Immunofixation Comment:, Free Kelford LC, Quant 42.6 H, Free Lambda LC, Quant 19.4, Free Kelford/Lambda Ratio 2.20 H 01/10/23 11:52: PHA Creatinine [...] % (Auto) 62.3, Lymph % (Auto) 25.3, Ashley % (Auto) 8.6, Eos % (Auto) 3.1, Baso % (Auto) 0.7, Nucleat RBC Rel Count 0.1, Neut # (Auto) 5.3, Lymph # (Auto) 2.2, Ashley # (Auto) 0.7, Eos # (Auto) 0.3, [...] by Jarrett Loyola II, DO> 01/13/23 1129 [facility] Work Phone: Summary Purpose Family History Relationship [...] section and content) DATE CREATED AUTHOR 10/05/2018 [facility] DATE CREATED AUTHOR AUTHOR'S ORGANIZ ATION 06/10/2022 [facility] DATE CREATED AUTHOR AUTHOR'S ORGANIZ ATION 08/18/2023 [facility] Source Comments (unrecognize d section and content) In the event this informatio n is protected by the Federal Confidentiality of Alcohol and Drug Abuse Patient Records regulations: The Federal rules restrict any use of the information to criminally investigate or prosecute any alcohol or drug abuse patient.[facility] Care Teams (unrecognized sec tion and [...] Referring Provider Active Cora Gaming APRN Active Conference Services Manager Relationship Specialty Start Date End Date Ramin De Paz, DO [address] [place] [address] PCP - General Internal Medicine 05/03/21 Team [...] UP E GD & COLONOSCOPY3 MONTH FOLLOW [id number] InformationB- 12 ShotNo InformationNo InformationWellnessNo InformationNo InformationNo InformationB-12 Shot3 month Follow [id number] Shot3 month Follow upNo InformationNo [id number] [id number] results Goals (unrecognized section and content) Goals [...] BE BASED ON THE PRIMARY CLINICAL RECORDS. [facility]. provides no warranty or guarantee of the accuracy or completeness of information in this document.
[2024-03-16] MEDS: LEVOFLOXACIN IN DEXTROSE 5 % 750 MG/150 ML PREMIX 100 MG IV (15:23)
[2024-03-16] MEDS: CLONIDINE HCL 0.1 MG TABLET PO ×2 (15:23→21:25)
[2024-03-16] MEDS: ENOXAPARIN SODIUM 40 MG/0.4 ML SYRINGE SUBQ (15:23)
[2024-03-16] MEDS: LOSARTAN POTASSIUM 50 MG TABLET PO ×2 (15:23→21:25)
[2024-03-16] MEDS: LACTATED RINGER'S SOLUTION 1,000 ML 125 ML IV ×2 (15:24→21:40)
[2024-03-16] MEDS: ASPIRIN 81 MG TABLET.DR PO (15:24)
[2024-03-16 16:18] LABS: Glucometer 298 mg/dL (74-106)
--- NOTE | 2024-03-16 16:24 | P.HP_ITS ---
HPI H&P: HPI History of Present Illness Chief complaint: vomiting, PNEUMONIA, LUNG CANCER Narrative: 78 y o with PMHx of Lung mass diagnosed earlier this for which patient chose comfort care measures and did not seek care, presented today with upper abdominal pain, that is persistent, associated with nausea and anorexia. Denies constipation/diarrhea. Upon arrival, she was tachycardic, tachypneic and her initial work up was c/w sepsis (HR>100, RR> 30, WBC 16K) sec to left lower lobe Pna. Patient reports productive cough x 1 week and mild SOB. She denies fever, chills. Patient admitted for sepsis sec to Left lower lobe PNA. Started on IVF, IV Levaquin. Upon evaluation, patient does not appear to be in any resp distress but appears tired and is sick appearing. Patient reports upper abdominal pain that has not improved since arrival to ED. Patient admitted as inpatient as she has hemodynamic instability despite initial fluid resuscitation and will require close hemodynamic monitoring and IV abx. Opioid HPI Opioid Management Most Recent Pain and Opioid Data: Last Pain Scale 3 03/16/24 15:00 Last Pain Assessment 03/16/24 16:17 Last ED Pain Assessment 03/16/24 08:47 Last MAR Pain Assessment 03/16/24 06:50 Last ORT Total Score 0 03/16/24 13:37 Last ORT Risk Category Low Risk 03/16/24 13:37 Review of Systems ROS Status of ROS 10 or more systems reviewed and unremark able except as noted in history and below [facility] Medical History (Updated 03/16/24 @ 16:29 by Shaikh Prisca MD) HLD (hyperlipidemia) ?E78.5 - Hyperlipidemia, unspecified (ICD-10) History of blood transfusion ?Z92.89 - Personal history of other medical treatment (ICD-10) Anxiety ?F41.9 - Anxiety disorder, unspecified (ICD-10) Liver lesion ?K76.9 - Liver disease, unspecified (ICD-10) Adrenal mass ?E27.8 - Other specified disorders of adrenal gland (ICD-10) Seizures ?R56.9 - Unspecified convulsions (ICD-10) Chronic kidney disease ?N18.9 - Chronic kidney disease, unspecified (ICD-10) GERD (gastroesophageal reflux disease) ?K21.9 - Gastro-esophageal reflux disease without esophagitis (ICD-10) High cholesterol ?E78.00 - Pure hypercholesterolemia, unspecified (ICD-10) Hypertension ?I10 - Essential (primary) hypertension (ICD-10) Hypothyroidism ?E03.9 - Hypothyroidism, unspecified (ICD-10) Diabetes ?E11.9 - Type 2 diabetes mellitus without complications (ICD-10) Transient ischemic attack ?G45.9 - Transient cerebral ischemic attack, unspecified (ICD-10) Anemia ?D64.9 - Anemia, unspecified (ICD-10) Anticoagulated ?Z79.01 - snf (current) use of anticoagulants (ICD-10) Lung mass ?R91.8 - Other nonspecific abnormal finding of lung field (ICD-10) Surgical History (Updated 08/02/23 @ 13:58 by Mindy Galloway NP) History of appendectomy ?Z90.49 - Acquired absence of other specified parts of digestive tract (ICD- 10) History of tonsillectomy ?Z90.89 - Acquired absence of other organs (ICD-10) History of esophagogastroduodenoscopy (EGD) ?Z98.890 - Other specified postprocedural states (ICD-10) History of thyroidectomy ?E89.0 - Postprocedural hypothyroidism (ICD-10) Family History (Updated 08/02/23 @ 13:58 by Mindy Galloway NP) Other Delayed recovery from anesthesia Family history of diabetes mellitus Family history of myocardial infarction History of amputation of lower extremity associated with diabetes mellitus Social History (Updated 08/02/23 @ 13:48 by Mindy Galloway NP) Within the past year, how often did you have a drink containing alcohol: never Score interpretation: A score less than 3 is consistent with normal alcohol consumption. Smoking status: Former smoker Non-prescribed substance use: denies use Highest level of school completed/degree received: 11th grade Little interest or pleasure in doing things: nearly every day Feeling down, depressed, or hopeless: not at all Meds Home Medications and Allergies Home Medications ?Medication ?Instructions ?Recorded ?Confirmed ?Type amlodipine 5 mg tablet 5 mg PO DAILY 07/25/23 03/16/24 History aspirin 81 mg tablet,delayed 81 mg PO DAILY 07/25/23 03/16/24 History release (Adult Low Dose Aspirin) atorvastatin 10 mg tablet 10 mg PO .QHS 07/25/23 03/16/24 History carvedilol 6.25 mg tablet 6.25 mg PO Q12H 07/25/23 03/16/24 History famotidine 20 mg tablet 20 mg PO BID 07/25/23 03/16/24 History furosemide 20 mg tablet 20 mg PO .every other day 07/25/23 03/16/24 History glipizide 10 mg tablet 10 mg PO BIDWM 07/25/23 03/16/24 History losartan 50 mg tablet 50 mg PO BID 07/25/23 03/16/24 History sitagliptin phosphate 50 1 tab PO BID 07/25/23 03/16/24 History mg-metformin 1,000 mg tablet (Janumet) biotin 1 mg capsule 1 mg PO DAILY 08/02/23 03/16/24 History cholecalciferol (vitamin D3) 50 50 mcg PO DAILY 08/02/23 03/16/24 History mcg (2,000 unit) capsule clonidine HCl 0.1 mg tablet 0.1 mg PO Q12H 08/02/23 03/16/24 History cyanocobalamin (vitamin B-12) 1,000 mcg IM .monthly 08/02/23 03/16/24 History 1,000 mcg/mL injection solution (Dodex) ferrous sulfate 325 mg (65 mg 325 mg PO .QOD 08/02/23 03/16/24 History iron) tablet (Feosol) Allergies Allergy/AdvReac Type Severity Reaction Status Date / Time Penicillins Allergy Severe Anaphylaxis Verified 03/16/24 04:34 Exam Constitutional Vital Signs, click to edit/add: Last Vital Signs Temp 98.6 F 03/16/24 13:37 Pulse 103 H 03/16/24 13:37 Resp 18 03/16/24 13:37 BP 173/78 H 03/16/24 13:37 Pulse Ox 92 L 03/16/24 13:37 O2 Del Method Room Air 03/16/24 13:37 O2 Flow Rate 2 03/16/24 07:05 General appearance: cooperative, lethargic, ill appearing and frail appearing HENPA Common normals: normocephalic and head/scalp atraumatic Respiratory Common normals: normal respiratory effort, no retractions and no use of accessory muscles Other: Rales at lung bases. Exertional dyspnea noted. Cardio Common normals: regular rhythm, S1 normal heart sound and S2 normal heart sound Rate: tachycardic GI Common normals: Normal to inspection, nondistended, normoactive bowel sounds present and soft to palpation Auscultation: normoactive bowel sounds Palpation: tender (Upper abdominal tenderness) Extremity Common normals: normal to inspection and full ROM Neuro Common normals: oriented x3, moves all extremities, no focal motor deficits and no sensory deficits noted Psych Common normals: mental status grossly normal, thought process normal, denies hallucinations and denies homicidal ideation Results Labs Labs: Short CBC 03/16/24 Range/Units 04:44 WBC 16.9 H (4.0-11.0) 10^3/uL Hgb 10.3 L (12.0-16.0) g/dL Hct 32.3 L (36.0-48.0) % Plt Count 354 (150-450) 10^3/uL BMP 03/16/24 04:44 Sodium 136 Potassium 4.4 Chloride 98 Carbon Dioxide 27.7 BUN 22.0 H Creatinine 1.11 H Glucose 219 H Calcium 10.5 H Liver Function 03/16/24 Range/Units 04:44 Total Bilirubin 0.3 (0.2-1.0) mg/dL AST 15 (15-37) U/L ALT 17 (14-59) U/L Alkaline Phosphatase 128 H (46-116) U/L Albumin 3.3 L (3.4-5.0) g/dL Urine 03/16/24 Range/Units 06:50 Urine Color Lt. yellow (YELLOW) Urine Clarity Clear (CLEAR) Urine pH 7.0 (5.0-9.0) Ur Specific [place] 1.015 (1.005-1.025) Urine Protein 30 A (NEG/TRACE) mg/dL Urine Glucose (UA) 500 A (NEGATIVE) mg/dL Assessment and Plan Assessment and Plan (1) Sepsis: Assessment and Plan: Meets SIRS criteria. Sepsis sec to PNA. Started on IV Levaquin, IVF. F.u blood and sputum cx. Qualifiers: Sepsis type: sepsis due to unspecified organism Sepsis acute organ dysfunction status: without acute organ dysfunction Qualified Code(s): A41.9 - Sepsis, unspecified organism (2) Left lower lobe pneumonia: Assessment and Plan: Left lung mass likely metastatic lung cancer. Tissue diagnosis was never attempted due to patient's wishes. Exertional dyspnea, tachypnea on exam. She does not have increased work of breathing currently, but on arrival she did. C/w IV Levaquin, albuterol as needed. Qualifiers: Pneumonia type: due to unspecified organism Qualified Code(s): J18.9 - Pneumonia, unspecified organism (3) Metastatic lung cancer (metastasis from lung to other site): Assessment and Plan: With intraabdominal metastasis. Likely resulting in abdominal pain. CC measures only. Qualifiers: Laterality: left Qualified Code(s): C34.92 - Malignant neoplasm of unspecified part of left bronchus or lung (4) Abdominal pain: Assessment and Plan: Likely due to intra abdominal metastasis. Lipase normal. C/w pain control/supportive measures. Qualifiers: Abdominal location: upper abdomen, unspecified Qualified Code(s): R10.10 - Upper abdominal pain, unspecified (5) Chronic kidney disease: Assessment and Plan: Renal fx at baseline. Monitor. Qualifiers: Chronic kidney disease stage: stage 2 (mild) Qualified Code(s): N18.2 - Chronic kidney disease, stage 2 (mild) (6) Diabetes: Assessment and Plan: C/w SSI. Hold oral hypoglycemics. 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 Elevated and above goal. likely due to pain. C/w home medications. IV hydralazine as needed. Qualifiers: Hypertension type: primary hypertension Qualified Code(s): I10 - Essential (primary) hypertension (8) Hypothyroidism: Assessment and Plan: C/w levothyroxine. Qualifiers: Hypothyroidism type: unspecified Qualified Code(s): E03.9 - Hypothyroidism, unspecified (9) HLD (hyperlipidemia): Assessment and Plan: C/w lipitor. Qualifiers: Hyperlipidemia type: unspecified Qualified Code(s): E78.5 - Hyperlipidemia, unspecified
[2024-03-16] MEDS: INSULIN ASPART 300 UNIT/3 ML PEN SUBQ ×2 (16:34→21:33)
[2024-03-16] MEDS: IPRATROPIUM/ALBUTEROL SULFATE 3 ML AMPUL.NEB IH ×2 (16:51→22:05)
[2024-03-16 20:44] LABS: Glucometer 247 mg/dL (74-106)
[2024-03-16] MEDS: FAMOTIDINE 20 MG TABLET PO (21:25)
[2024-03-16] MEDS: ATORVASTATIN CALCIUM 10 MG TABLET PO (21:25)
[2024-03-16] MEDS: CARVEDILOL 6.25 MG TABLET PO (21:25)
[2024-03-16] MEDS: OXYCODONE HCL 5 MG TABLET PO (21:32)
[2024-03-16] MEDS: GUAIFENESIN 200 MG/DEXTROMETHORPHAN 20 MG 10 ML UNIT DOSE CUP PO (21:33)
[2024-03-17] VITALS (10 sets, daily range): BP systolic 140–180; BP diastolic 47–78; PULSE 68–107; TEMP 36.6–37; O2SAT 90–94
[2024-03-17] MEDS: IPRATROPIUM/ALBUTEROL SULFATE 3 ML AMPUL.NEB IH ×3 (04:17→17:09)
[2024-03-17] MEDS: LACTATED RINGER'S SOLUTION 1,000 ML 125 ML IV ×2 (05:27→23:53)
[2024-03-17 06:13] LABS: Basophils Percent Auto 0.2 % (0.2-2.0); Hematocrit 27.1 % (36.0-48.0); Hemoglobin 8.8 g/dL (12.0-16.0); Immature Granulocytes Abs Auto 0.11 10^3/uL (0.00-0.03); Immature Granulocytes Pct Auto 0.6 % (0.0-0.5); Lymphocytes Absolute Auto 2.2 10^3/uL (1.2-3.8); Lymphocytes Percent Auto 12.1 % (20.5-60.0); Mean Corpuscular HGB Conc 32.5 g/dL (29.9-35.2); Mean Corpuscular Hemoglobin 28.1 pg (26.7-34.0); Mean Corpuscular Volume 86.6 fL (81.0-99.0); Mean Platelet Volume 10.8 fL (9.5-13.5); Monocytes Absolute Auto 1.3 10^3/uL (0.3-0.8); Neutrophils Absolute Auto 14.4 10^3/uL (1.4-6.5); Neutrophils Percent Auto 80.1 % (43.0-75.0); Platelet Count 293 10^3/uL (150-450); Red Blood Count 3.13 10^6/uL (4.20-5.40); Red Cell Distribution Width 13.9 % (11.0-15.0)
[2024-03-17 06:27] LABS: Alanine Aminotransferase 13 U/L (14-59); Albumin Globulin Ratio 0.7; Albumin Level 2.6 g/dL (3.4-5.0); Alkaline Phosphatase 89 U/L (46-116); Anion Gap 11.3; Aspartate Amino Transferase 11 U/L (15-37); BUN Creatinine Ratio 15.1; Bilirubin Total 0.3 mg/dL (0.2-1.0); Calcium 9.5 mg/dL (8.5-10.1); Carbon Dioxide 26.5 mmol/L (21.0-32.0); Chloride 99 mmol/L (98-107); Estimated GFR (African America >60 (>=60); Estimated GFR (Non-African Ame 50 (>=60); Globulin 3.6 g/dL; Glucose 230 mg/dL (74-106); Potassium 3.8 mmol/L (3.5-5.1); Sodium 133 mmol/L (136-145); Total Protein 6.2 g/dL (6.4-8.2)
[2024-03-17] MEDS: INSULIN ASPART 300 UNIT/3 ML PEN SUBQ ×4 (07:59→21:12)
[2024-03-17] MEDS: ASPIRIN 81 MG TABLET.DR PO (08:41)
[2024-03-17] MEDS: CLONIDINE HCL 0.1 MG TABLET PO ×2 (08:41→20:33)
[2024-03-17] MEDS: AMLODIPINE BESYLATE 5 MG TABLET PO (08:41)
[2024-03-17] MEDS: CARVEDILOL 6.25 MG TABLET PO ×2 (08:41→20:33)
[2024-03-17] MEDS: FAMOTIDINE 20 MG TABLET PO ×2 (08:41→20:33)
[2024-03-17] MEDS: CHOLECALCIFEROL (VITAMIN D3) 25 MCG/1,000 UNITS TABLET 50 MCG PO (08:41)
[2024-03-17] MEDS: LOSARTAN POTASSIUM 50 MG TABLET PO ×2 (08:41→20:33)
[2024-03-17] MEDS: OXYCODONE HCL 5 MG TABLET PO ×2 (10:27→16:19)
[2024-03-17] MEDS: ACETAMINOPHEN 325 MG TABLET 650 MG PO ×2 (10:27→16:20)
--- NOTE | 2024-03-17 10:56 | P.IMPN_ITS ---
Progress Note: A&P Assessment and Plan (1) Sepsis: Assessment and Plan: Stable hemodynamics but leukocytosis worsen from before. Clinically improving however despite worsening leukocytosis. C/w IVF, IV abx and f/u cx. Qualifiers: Sepsis type: sepsis due to unspecified organism Sepsis acute organ dysfunction status: without acute organ dysfunction Qualified Code(s): A41.9 - Sepsis, unspecified organism (2) Left lower lobe pneumonia: Assessment and Plan: Feels better and has minimal MELO today. However, her leukocytosis is worse today Clinically better and will not make any changes. C/w IVF, IV abx and f/u cx. Qualifiers: Pneumonia type: due to unspecified organism Qualified Code(s): J18.9 - Pneumonia, unspecified organism (3) Lactic acidosis: Assessment and Plan: due to dehydration. Improved with hydration. (4) Metastatic lung cancer (metastasis from lung to other site): Assessment and Plan: Comfort care measures only. Not pursuing treatment. Qualifiers: Laterality: left Qualified Code(s): C34.92 - Malignant neoplasm of unspecified part of left bronchus or lung (5) Abdominal pain: Assessment and Plan: Improved. Now 08/26. Likely due to metastatic lung cancer. Will benefit from outpatient palliative care. Qualifiers: Abdominal location: upper abdomen, unspecified Qualified Code(s): R10.10 - Upper abdominal pain, unspecified (6) Chronic kidney disease: Assessment and Plan: Renal function at baseline. Monitor. Qualifiers: Chronic kidney disease stage: stage 2 (mild) Qualified Code(s): N18.2 - Chronic kidney disease, stage 2 (mild) (7) Diabetes: Assessment and Plan: SSI while inpatient. Qualifiers: Diabetes mellitus type: type 2 Diabetes mellitus salvage determiner insulin use: without alf use Diabetes mellitus complication status: without complication Qualified Code(s): E11.9 - Type 2 diabetes mellitus without complications (8) Hypertension: Assessment and Plan: Above goal. C/w home medications. IV hydralazine as needed Qualifiers: Hypertension type: primary hypertension Qualified Code(s): I10 - Essential (primary) hypertension (9) HLD (hyperlipidemia): Assessment and Plan: c/w lipitor Qualifiers: Hyperlipidemia type: unspecified Qualified Code(s): E78.5 - Hyperlipidemia, unspecified Internal Medicine - PN: Subj Subjective Interval history: Seen and examined. Subjectively feels a little better. She was able to eat half her breakfast. Denies nausea/vomiting. Her abdominal pain has improved also. Exam Constitutional Vital Signs, click to edit/add: Last Vital Signs Temp 98.6 F 03/17/24 07:57 Pulse 68 03/17/24 10:41 Resp 16 03/17/24 07:57 BP 162/64 H 03/17/24 07:57 Pulse Ox 92 L 03/17/24 10:41 O2 Del Method Room Air 03/17/24 10:41 O2 Flow Rate 2 03/16/24 07:05 General appearance: cooperative and frail appearing Respiratory Common normals: normal respiratory effort, no retractions and no use of accessory muscles Other: Rales at lung bases. She is not SOB anymore. Cardio Common normals: regular rate, regular rhythm, S1 normal heart sound and S2 normal heart sound GI Common normals: Normal to inspection, nondistended, normoactive bowel sounds present and soft to palpation Auscultation: normoactive bowel sounds Palpation: tender (Upper abdominal tenderness - improved from before.) Extremity Common normals: normal to inspection and full ROM Neuro Common normals: oriented x3, moves all extremities, no focal motor deficits and no sensory deficits noted Psych Common normals: mental status grossly normal, thought process normal, denies oquendo llucinations and denies homicidal ideation Internal Medicine - PN: Obj Da Labs Labs: Laboratory Results - last 24 hr 03/16/24 03/16/24 03/17/24 16:17 20:36 05:45 WBC 18.0 H RBC 3.13 L Hgb 8.8 L Hct 27.1 L MCV 86.6 MCH 28.1 MCHC 32.5 RDW 13.9 Plt Count 293 MPV 10.8 Neut % (Auto) 80.1 H Lymph % (Auto) 12.1 L [place] % (Auto) 7.0 Eos % (Auto) 0.0 L Baso % (Auto) 0.2 Neut # (Auto) 14.4 H Lymph # (Auto) 2.2 [place] # (Auto) 1.3 H Eos # (Auto) 0.0 Baso # (Auto) 0.0 Abs Immat Gran (auto) 0.11 H Imm/Tot Granulo (auto) 0.6 H Sodium 133 L Potassium 3.8 Chloride 99 Carbon Dioxide 26.5 Anion Gap 11.3 BUN 16.0 Creatinine 1.06 H Est GFR ( Amer) >60 Est GFR (Non-Af Amer) 50 L BUN/Creatinine Ratio 15.1 Glucose 230 H Calcium 9.5 Total Bilirubin 0.3 AST 11 L ALT 13 L Alkaline Phosphatase 89 Total Protein 6.2 L Albumin 2.6 L Globulin 3.6 Albumin/Globulin Ratio 0.7 POC Glucose 298 H 247 H
[2024-03-17 11:25] LABS: Glucometer 282 mg/dL (74-106)
[2024-03-17] MEDS: ENOXAPARIN SODIUM 40 MG/0.4 ML SYRINGE SUBQ (14:14)
[2024-03-17] MEDS: HYDRALAZINE HCL 20 MG/ML VIAL 10 MG IVP (15:07)
[2024-03-17 16:23] LABS: Glucometer 239 mg/dL (74-106)
[2024-03-17 20:05] LABS: Glucometer 211 mg/dL (74-106)
[2024-03-17] MEDS: ATORVASTATIN CALCIUM 10 MG TABLET PO (20:32)
[2024-03-18 04:21] VITALS: PULSE 96; O2SAT 93
[2024-03-18] MEDS: IPRATROPIUM/ALBUTEROL SULFATE 3 ML AMPUL.NEB IH ×2 (04:21→10:40)
[2024-03-18 04:30] VITALS: BP 176/73; PULSE 95; TEMP 37.2; O2SAT 91
[2024-03-18 05:06] VITALS: BP 162/70
[2024-03-18 06:27] LABS: Basophils Percent Auto 0.2 % (0.2-2.0); Hematocrit 27.1 % (36.0-48.0); Immature Granulocytes Abs Auto 0.13 10^3/uL (0.00-0.03); Immature Granulocytes Pct Auto 0.6 % (0.0-0.5); Lymphocytes Absolute Auto 1.6 10^3/uL (1.2-3.8); Lymphocytes Percent Auto 7.4 % (20.5-60.0); Mean Corpuscular HGB Conc 33.2 g/dL (29.9-35.2); Mean Corpuscular Hemoglobin 28.1 pg (26.7-34.0); Mean Corpuscular Volume 84.7 fL (81.0-99.0); Mean Platelet Volume 10.8 fL (9.5-13.5); Monocytes Absolute Auto 1.4 10^3/uL (0.3-0.8); Monocytes Percent Auto 6.5 % (1.7-12.0); Neutrophils Absolute Auto 18.4 10^3/uL (1.4-6.5); Neutrophils Percent Auto 85.3 % (43.0-75.0); Platelet Count 273 10^3/uL (150-450); Red Cell Distribution Width 13.9 % (11.0-15.0); White Blood Count 21.6 10^3/uL (4.0-11.0)
[2024-03-18 06:33] LABS: Alanine Aminotransferase 14 U/L (14-59); Albumin Globulin Ratio 0.6; Albumin Level 2.4 g/dL (3.4-5.0); Alkaline Phosphatase 86 U/L (46-116); Anion Gap 9.2; Aspartate Amino Transferase 14 U/L (15-37); BUN Creatinine Ratio 11.7; Bilirubin Total 0.4 mg/dL (0.2-1.0); Calcium 9.5 mg/dL (8.5-10.1); Carbon Dioxide 27.3 mmol/L (21.0-32.0); Chloride 98 mmol/L (98-107); Estimated GFR (African America >60 (>=60); Estimated GFR (Non-African Ame 52 (>=60); Globulin 3.7 g/dL; Glucose 233 mg/dL (74-106); Potassium 3.5 mmol/L (3.5-5.1); Sodium 131 mmol/L (136-145); Total Protein 6.1 g/dL (6.4-8.2)
--- NOTE | 2024-03-18 07:24 | XR_ITS ---
The [address] [address] Patient Name: DINO VELASCO MRN: [id number] date: 1945 Sex: F Assigned Patient Location: [place] Current Patient Location: [place] Accession/Order Number: [id number] Exam Date: 03/18/2024 07:55 Report Date: 03/18/2024 08:16 At the request of: SHAIKH NICOLE Procedure: XR chest 1V EXAMINATION: XR chest 1V HISTORY: SOB COMPARISON: XR chest 03/08/2024 FINDINGS: LUNGS: Underexpanded lungs. Grossly stable large left upper lobe opacity compatible with known mass. Minimal haziness and stranding within lung bases. VASCULATURE: No increased pulmonary vasculature. PLEURA: No pneumothorax, effusion, or pleural thickening. CARDIAC: No cardiomegaly or cardiac silhouette abnormality. MEDIASTINUM: No visible mass or adenopathy. BONES: No fracture or visible bone lesion. OTHER: Negative. XR/XR chest 1V IMPRESSION: 1. Low lung volume examination with minimal bibasilar atelectasis or possibly infiltrates. 2. Grossly stable large left upper lobe mass. Electronically authenticated by: SALUD ANDUJAR Date: 03/18/2024 08:16
[2024-03-18 08:26] LABS: Glucometer 249 mg/dL (74-106)
[2024-03-18] MEDS: INSULIN ASPART 300 UNIT/3 ML PEN SUBQ (09:00)
[2024-03-18] MEDS: FAMOTIDINE 20 MG TABLET PO (09:09)
[2024-03-18] MEDS: AMLODIPINE BESYLATE 5 MG TABLET PO (09:09)
[2024-03-18] MEDS: CHOLECALCIFEROL (VITAMIN D3) 25 MCG/1,000 UNITS TABLET 50 MCG PO (09:09)
[2024-03-18] MEDS: ASPIRIN 81 MG TABLET.DR PO (09:09)
[2024-03-18] MEDS: CARVEDILOL 6.25 MG TABLET PO (09:09)
[2024-03-18] MEDS: LACTATED RINGER'S SOLUTION 1,000 ML 125 ML IV (09:10)
[2024-03-18] MEDS: LOSARTAN POTASSIUM 50 MG TABLET PO (09:10)
[2024-03-18] MEDS: CLONIDINE HCL 0.1 MG TABLET PO (09:10)
[2024-03-18 09:11] VITALS: BP 155/58; PULSE 96; TEMP 37.1; O2SAT 90
--- NOTE | 2024-03-18 09:50 | P.DS_ITS ---
DS: Providers Provider Date of admission: 03/16/24 13:19 Primary care physician: Ramin De Paz DO Admitting clinician: Shaikh Prisca Attending physician on admission: Shaikh Prisca Consults: 03/16/24 Consult to Dietitian Routine Reason for consultation: indicated 03/16/24 12:08 Occupational Therapy Eval and Treat Routine Reason for consultation: Ambulatory dysfunction/weakness Physical Therapy Eval and Treat Routine Reason for consultation: Ambulatory dysfunction/weakness Attending physician on discharge: Shaikh Prisca Discharging clinician: Shaikh Prisca Anticipated date of discharge: 03/18/24 DS: Diagnosis Discharge Diagnosis (1) Sepsis: Assessment and plan: Stable hemodynamics. HR and RR well controlled. Stable for d/c Qualifiers: Sepsis type: sepsis due to unspecified organism Sepsis acute organ dysfunction status: without acute organ dysfunction Qualified Code(s): A41.9 - Sepsis, unspecified organism (2) Left lower lobe pneumonia: Assessment and plan: Stable LL infiltrate. No resp symptoms. While her WBC increased further today, she is clinically better. Will d/c on oral Levaquin Qualifiers: Pneumonia type: due to unspecified organism Qualified Code(s): J18.9 - Pneumonia, unspecified organism (3) Lactic acidosis: Assessment and plan: resolved (4) Metastatic lung cancer (metastasis from lung to other site): Assessment and plan: Recommend outpatient palliative care eval as patient is not seeking treatment Qualifiers: Laterality: left Qualified Code(s): C34.92 - Malignant neoplasm of unspecified part of left bronchus or lung (5) Abdominal pain: Assessment and plan: Likely due to inra abdominal metastasis. Pain more or less resolved. Qualifiers: Abdominal location: upper abdomen, unspecified Qualified Code(s): R10.10 - Upper abdominal pain, unspecified (6) Chronic kidney disease: Assessment and plan: Stable. Monitor. Qualifiers: Chronic kidney disease stage: stage 2 (mild) Qualified Code(s): N18.2 - Chronic kidney disease, stage 2 (mild) (7) Diabetes: Assessment and plan: C/w home medications as outpatient. Qualifiers: Diabetes mellitus type: type 2 Diabetes mellitus assisted insulin use: without assisted use Diabetes mellitus complication status: without complication Qualified Code(s): E11.9 - Type 2 diabetes mellitus without complications (8) Hypertension: Assessment and plan: C/w home medications/ Qualifiers: Hypertension type: primary hypertension Qualified Code(s): I10 - Essential (primary) hypertension (9) HLD (hyperlipidemia): Assessment and plan: c/w statin Qualifiers: Hyperlipidemia type: unspecified Qualified Code(s): E78.5 - Hyperlipidemia, unspecified DS: Summary Hospital Course Hospital Course: 78 y o with PMHx of Lung mass diagnosed earlier this year for which patient chos e comfort care measures and did not seek care, presented to ED with persistent upper abdominal pain, nausea and anorexia. Her initial work up revealed that patient had sepsis (HR>100, RR> 30, WBC 16K) sec to left lower lobe Pna. CT abd/pelvis showed left renal mass. She had normal Lipase, liver enzymes. She was started on IVF, IV Levaquin. She clinically improved during the course of admission. She is clinically stable for discharge. She has minimal abdominal pain. Tolerating PO diet. Her Leukocytosis has progressively worsened since admission but she is clinically improving. She will be discharged on oral Levaquin to finish her treatment course for PNA. Patient will need outpatient CBC to ensure her leukocytosis improves in 1 weeks. She was educated on worrisome signs and symptoms that should prompt her to seek care in ED She will need f/u with PCP and Oncology in 1 weeks Status at Discharge Functional status at discharge: independent ambulation Overall status at discharge: patient is back to baseline Time Spent with Patient Time attestation: Total time spent providing and/or coordinating discharge services: Time spent: greater than 30 minutes Exam Constitutional Vital Signs, click to edit/add: Last Vital Signs Temp 98.7 F 03/18/24 09:11 Pulse 96 H 03/18/24 09:11 Resp 16 03/18/24 09:11 BP 155/58 H 03/18/24 09:11 Pulse Ox 90 L 03/18/24 09:11 O2 Del Method Room Air 03/18/24 09:11 O2 Flow Rate 2 03/16/24 07:05 General appearance: cooperative and frail appearing Respiratory Common normals: normal respiratory effort, no retractions, no use of accessory muscles and clear to auscultation bilaterally Cardio Common normals: regular rate, regular rhythm, S1 normal heart sound and S2 normal heart sound GI Common normals: Normal to inspection, nondistended, normoactive bowel sounds present, soft to palpation and non-tender Auscultation: normoactive bowel sounds Extremity Common normals: normal to inspection and full ROM Neuro Common normals: oriented x3, moves all extremities, no focal motor deficits and no sensory deficits noted Psych Common normals: mental status grossly normal, thought process normal, denies hallucinations and denies homicidal ideation DS: Data Data Completed and Pending Labs on day of discharge: Labs from last 24 hours 03/18/24 03/18/24 03/17/24 08:25 05:55 19:56 WBC 21.6 H RBC 3.20 L Hgb 9.0 L Hct 27.1 L MCV 84.7 MCH 28.1 MCHC 33.2 RDW 13.9 Plt Count 273 MPV 10.8 Neut % (Auto) 85.3 H Lymph % (Auto) 7.4 L [place] % (Auto) 6.5 Eos % (Auto) 0.0 L Baso % (Auto) 0.2 Neut # (Auto) 18.4 H Lymph # (Auto) 1.6 [place] # (Auto) 1.4 H Eos # (Auto) 0.0 Baso # (Auto) 0.0 Abs Immat Gran (auto) 0.13 H Imm/Tot Granulo (auto) 0.6 H Sodium 131 L Potassium 3.5 Chloride 98 Carbon Dioxide 27.3 Anion Gap 9.2 BUN 12.0 Creatinine 1.03 H Est GFR ( Amer) >60 Est GFR (Non-Af Amer) 52 L BUN/Creatinine Ratio 11.7 Glucose 233 H Calcium 9.5 Total Bilirubin 0.4 AST 14 L ALT 14 Alkaline Phosphatase 86 Total Protein 6.1 L Albumin 2.4 L Globulin 3.7 Albumin/Globulin Ratio 0.6 POC Glucose 249 H 211 H 03/17/24 03/17/24 16:17 11:24 WBC RBC Hgb Hct MCV MCH MCHC RDW Plt Count MPV Neut % (Auto) Lymph % (Auto) [place] % (Auto) Eos % (Auto) Baso % (Auto) Neut # (Auto) Lymph # (Auto) [place] # (Auto) Eos # (Auto) Baso # (Auto) Abs Immat Gran (auto) Imm/Tot Granulo (auto) Sodium Potassium Chloride Carbon Dioxide Anion Gap BUN Creatinine Est GFR ( Amer) Est GFR (Non-Af Amer) BUN/Creatinine Ratio Glucose Calcium Total Bilirubin AST ALT Alkaline Phosphatase Total Protein Albumin Globulin Albumin/Globulin Ratio POC Glucose 239 H 282 H Discharge Plan Discharge Disposition: Home, Self-Care Discharge Medications: New levofloxacin 750 mg tablet 750 mg PO DAILY 5 Days Qty: 5 0RF Continued amlodipine 5 mg tablet 5 mg PO DAILY atorvastatin 10 mg tablet 10 mg PO .QHS carvedilol 6.25 mg tablet 6.25 mg PO Q12H famotidine 20 mg tablet 20 mg PO BID furosemide 20 mg tablet 20 mg PO .every other day glipizide 10 mg tablet 10 mg PO BIDWM losartan 50 mg tablet 50 mg PO BID Janumet 50-1,000 mg tablet 1 tab PO BID aspirin [Adult Low Dose Aspirin] 81 mg tablet,delayed release (DR/EC) 81 mg PO DAILY clonidine HCl 0.1 mg tablet 0.1 mg PO Q12H cyanocobalamin (vitamin B-12) [Dodex] 1,000 mcg/mL solution 1,000 mcg IM .monthly ferrous sulfate [Feosol] 325 mg (65 mg iron) tablet 325 mg PO .QOD biotin 1 mg capsule 1 mg PO DAILY cholecalciferol (vitamin D3) 50 mcg (2,000 unit) capsule 50 mcg PO DAILY Activity: increase activity as tolerated Diet: advance to your usual diet Print Language: [place] Forms: Portal Instructions Follow Up Appointments: Mar.19 @ 3:45pm with Dr. De Paz [phone] Mar.26 @ 2:30pm with Dr. Centeno @ [facility] [phone]
--- NOTE | 2024-03-18 10:17 | CM.NOTE ---
Rounds made with Dr. Cope, pt will discharge to home today. Pt will f/u with PCP and Dr. Centeno.
--- NOTE | 2024-03-18 10:31 | SWNOTE1 ---
Important Message from [employer] reviewed and discussed with patient. Pt. verbalized understanding and signed the form. Original given to patient and copy placed in patient?s chart. KRZYSZTOF met with pt to discuss dc needs. Pt lives at home alone. She has a walker if needed. She is independent with ADL'S at this time. Pt has 3 daughters in the area that assist as needed. Pt voiced she does have lung cancer with mets. She has spoken to Dr. Centeno and is not pursuing treatment at her age. She stated she can reach out to Dr. Centeno if she ever needs assistance with anything. KRZYSZTOF did mention to pt that hospice also has great services/support and has palliative care. SW offered pamphlets, but pt not interested at this time. At this time pt has no anticipated discharge needs. SW to follow as needed. KRZYSZTOF did remind pt to re-schedule her bone density, pt voiced understanding.
[2024-03-18 10:40] VITALS: PULSE 67; O2SAT 92
--- NOTE | 2024-03-19 16:26 | CM.DCFOLLOWU ---
1st attempt 03/19/24, no answer
--- NOTE | 2024-03-21 14:17 | CM.DCFOLLOWU ---
2nd attempt 03/21/24
== END 2024-03-18 11:45 | disposition home or self-care (01) | DRG 871 ==
LOC: ER 06:58 → MS 13:23
PROVIDERS: Emergency Medicine; Admitting Provider Internal Medicine; Emergency Provider Internal Medicine; PCP Internal Medicine; Visit Provider Internal Medicine
DX: A41.9 Sepsis, unspecified organism (principal); J18.9 Pneumonia, unspecified organism; C34.92 Malignant neoplasm of unspecified part of left bronchus or lung; C79.89 Secondary malignant neoplasm of other specified sites; E87.20 Acidosis, unspecified; R10.10 Upper abdominal pain, unspecified; E11.22 Type 2 diabetes mellitus with diabetic chronic kidney disease; N18.2 Chronic kidney disease, stage 2 (mild); I12.9 Hypertensive chronic kidney disease with stage 1 through stage 4 chronic kidney disease, or unspecified chronic kidney disease; E86.0 Dehydration; E89.0 Postprocedural hypothyroidism; E78.5 Hyperlipidemia, unspecified; N28.89 Other specified disorders of kidney and ureter; Z79.890 Hormone replacement therapy; Z79.899 Other long term (current) drug therapy; Z90.49 Acquired absence of other specified parts of digestive tract; Z90.89 Acquired absence of other organs; Z98.890 Other specified postprocedural states; Z87.891 Personal history of nicotine dependence; Z79.82 Long term (current) use of aspirin; Z20.822 Contact with and (suspected) exposure to COVID-19
CPT/HCPCS: 36410; 36415; 36592; 71045; 74177; 80053; 81001; 82948; 83605; 83690; 84484; 85025; 87040; 87070; 87811; 93005; 94640; 94761; 97161; 97165; 99285; C1887; J0360; J0456; J0780; J1650; J2405; J3010; Q9967